=== PATIENT | male | born 1975 | race Two or more races ===

== ENCOUNTER → 2023-03-02 | Outpatient (CLI) | payer OTHER ==
[~2023-03-02] VITALS: Ht 175.3 cm; Wt 81.6 kg
[~2023-03-02] MED LIST: ADENOSINE 69 MG in GIVE UN-DILUTED 0 ML IV STA
== END | disposition home or self-care (01) ==
LOC: XYW 08:03
PROVIDERS: ATTEND Specialist
DX: I10 Essential (primary) hypertension (principal); R07.9 Chest pain, unspecified; E78.5 Hyperlipidemia, unspecified; K21.9 Gastro-esophageal reflux disease without esophagitis
CPT/HCPCS: 78452; 93017; A9500; J0153

== ENCOUNTER 2023-10-12 11:46 | Inpatient (IN) | payer OTHER ==
[~2023-10-12] VITALS: Ht 152.4 cm; Wt 92.2 kg
[2023-10-12 12:42] LABS: Basophils # (auto) 0 10 ^3/uL (0-0.2); Basophils % (auto) 0.8 % (0.0-2.0); Eosinophils # (auto) 0 10 ^3/uL (0-0.8); Eosinophils % (auto) 0.8 % (0.0-7.0); Hematocrit 49.8 % (41.0-53.0); Hemoglobin 17.5 g/dL (13.5-17.5); Lymphocytes # (auto) 0.9 10 ^3/uL (0.4-5.4); Lymphocytes % (auto) 16.4 % (10.0-50.0); Mean Corpuscular Hemoglobin 33.8 pg (28.0-32.0); Mean Corpuscular Hgb Conc. 35.2 g/dL (32.0-36.0); Monocytes # (auto) 0.6 10 ^3/uL (0-1.3); Monocytes % (auto) 9.9 % (0.0-12.0); Neutrophils # (auto) 4.1 10 ^3/uL (1.6-8.6); Neutrophils % (auto) 72.1 % (37.0-80.0); Nucleated Red Blood Cells % 0.2 %; Red Blood Cells 5.19 10^6/uL (4.5-5.90); Red Cell Distribution Width 14.2 % (11.8-14.3); White Blood Cell 5.7 10^3/uL (4.4-10.8)
[2023-10-12 12:53] LABS: Blood Alcohol < 3.0 mg/dL (<10); Magnesium 1.9 mg/dL (1.6-2.6)
[2023-10-12 12:54] LABS: Creatine Kinase IFCC 368 U/L (46-171)
[2023-10-12] MEDS: METOPROLOL TARTRATE 1MG/1ML-5ML VIAL IV ONE (13:01)
[2023-10-12 13:05] LABS: Lipase 45 U/L (12-53)
[2023-10-12 13:06] LABS: Alanine Aminotransferase 45 U/L (7-40); Albumin 5.1 g/dL (3.2-4.8); Alkaline Phosphatase 87 U/L (46-116); Anion Gap 8 (5-15); Aspartate Aminotransferase 23 U/L (13-40); BUN/Creatinine Ratio 17.6 (10.0-20.0); Bilirubin, Total 0.7 mg/dL (0.2-1.0); Blood Urea Nitrogen 24 mg/dL (9-23); Calcium 10.4 mg/dL (8.7-10.4); Carbon Dioxide 25 mmol/L (20-30); Chloride 106 mmol/L (98-107); Glucose 100 mg/dL (74-106); Potassium 3.7 mmol/L (3.5-5.1); Sodium 139 mmol/L (136-145)
[2023-10-12 13:07] LABS: Total Protein 7.7 g/dL (5.7-8.2)
[2023-10-12] MEDS ORDERED: hydrALAZINE HCL 20 MG/ML VL IV PRN (13:15)
[2023-10-12 14:00] VITALS: PULSE 122; RESP 16; O2SAT 95
[2023-10-12] MEDS ORDERED: NITROGLYCERIN 0.4 MG SL TAB SL PRN (14:15)
[2023-10-12] MEDS: SODIUM CHLORIDE 0.9% 1,000 ML IV SCH (14:15)
[2023-10-12] MEDS ORDERED: PRAV20TA3 PO (17:40)
[2023-10-12] MEDS ORDERED: CHOL20007 PO (17:40)
[2023-10-12] MEDS ORDERED: HYDR25TA5 PO (17:40)
[2023-10-12] MEDS ORDERED: HYDR25TA4 PO (17:40)
[2023-10-12] MEDS ORDERED: ALBUAER3 IN (17:40)
[2023-10-12] MEDS ORDERED: APIX5TAB PO (17:40)
[2023-10-12] MEDS ORDERED: MAGN400T40 PO (17:40)
[2023-10-12] MEDS ORDERED: TRIA0.1P2 TOP (17:40)
[2023-10-12] MEDS ORDERED: DIPH-751 PO (17:40)
[2023-10-12] MEDS ORDERED: AMLO1TAB22 PO (17:40)
[2023-10-12] MEDS ORDERED: METO-158 PO (17:40)
[2023-10-12] MEDS ORDERED: EVOL140I SC (17:40)
[2023-10-12] MEDS ORDERED: DICY20TA PO (17:40)
[2023-10-12] MEDS ORDERED: MELO15TA29 PO (17:40)
[2023-10-12] MEDS ORDERED: HYDR-4924 PO (17:40)
[2023-10-12 18:26] LABS: Urine Bacteria None Seen /hpf (None Seen); Urine WBC None Seen /hpf (0 - 3)
[2023-10-12 18:48] LABS: Urine Blood Negative /uL (Negative); Urine Clarity Clear (Clear); Urine Color Light-Yellow (Yellow); Urine Protein, UAD Negative (Negative); Urine Specific Gravity 1.017 (1.001-1.035); Urine Urobilinogen Normal (Negative); Urine pH 6.5 (5.0-9.0)
[2023-10-12 18:59] VITALS: PULSE 97
[2023-10-12 19:02] LABS: Amphetamine Screen, Urine Neg (NEGATIVE); Barbiturate Scree,Urine Neg (NEGATIVE); Benzodiazephine Screen, Urine Neg (NEGATIVE); Cocaine Screen, Urine Neg (NEGATIVE); Opiate Scree,Urine Neg (NEGATIVE)
[2023-10-12 19:03] LABS: Cannabinoid Screen, Urine Neg (NEGATIVE); Phencyclidine Screen, Urine Neg (NEGATIVE)
[2023-10-12 20:00] VITALS: PULSE 74; PULSE 94; RESP 18; O2SAT 97
[2023-10-12 21:00] VITALS: BP 137/77; PULSE 74; RESP 18; TEMP 98.1; O2SAT 97
[2023-10-12] MEDS: APIXABAN 5 MG TAB PO SCH (21:10)
[2023-10-12] MEDS: METOPROLOL TARTRATE 50 MG TAB PO SCH (21:11)
[2023-10-12] MEDS: FAMOTIDINE (10MG/ML) 2ML VL IV SCH (21:12)
[2023-10-12] MEDS: MELATONIN 5 MG TAB PO PRN (22:32)
[2023-10-13] VITALS (8 sets, daily range): BP systolic 106–140; BP diastolic 60–81; PULSE 56–76; RESP 18–20; TEMP 97.9–98.4; O2SAT 95–99
[2023-10-13 07:15] LABS: Basophils # (auto) 0 10 ^3/uL (0-0.2); Eosinophils # (auto) 0.1 10 ^3/uL (0-0.8); Monocytes # (auto) 0.5 10 ^3/uL (0-1.3); Neutrophils # (auto) 2.6 10 ^3/uL (1.6-8.6)
[2023-10-13 07:19] LABS: Basophils % (auto) 0.7 % (0.0-2.0); Eosinophils % (auto) 2.8 % (0.0-7.0); Hematocrit 45.6 % (41.0-53.0); Hemoglobin 15.9 g/dL (13.5-17.5); Lymphocytes % (auto) 24.2 % (10.0-50.0); Mean Corpuscular Hemoglobin 34.3 pg (28.0-32.0); Mean Corpuscular Hgb Conc. 34.9 g/dL (32.0-36.0); Mean Corpuscular Volume 98.2 fL (80.0-100.0); Neutrophils % (auto) 61.3 % (37.0-80.0); Red Blood Cells 4.64 10^6/uL (4.5-5.90); White Blood Cell 4.2 10^3/uL (4.4-10.8)
[2023-10-13 07:47] LABS: Alanine Aminotransferase 33 U/L (7-40); Albumin 4.3 g/dL (3.2-4.8); Alkaline Phosphatase 73 U/L (46-116); Anion Gap 7 (5-15); Aspartate Aminotransferase 21 U/L (13-40); BUN/Creatinine Ratio 10.6 (10.0-20.0); Blood Urea Nitrogen 13 mg/dL (9-23); Calcium 9.5 mg/dL (8.5-10.1); Carbon Dioxide 22 mmol/L (20-30); Chloride 108 mmol/L (98-107); Glucose 112 mg/dL (74-106); Sodium 137 mmol/L (136-145)
[2023-10-13 07:48] LABS: Bilirubin, Total 0.8 mg/dL (0.2-1.0); Total Protein 6.7 g/dL (5.7-8.2)
[2023-10-13] MEDS ORDERED: diphenhdrAMINE HCL 50 MG/1 ML VL IV PRN (13:00)
[2023-10-13] MEDS ORDERED: ALBUTEROL SULF HFA 90MCG INH 200DOSE IN SCH (14:00)
[2023-10-13] MEDS ORDERED: DICYCLOMINE HCL 10 MG CAP PO SCH (14:00)
[2023-10-13] MEDS: PANTOPRAZOLE 40 MG/10 ML VIAL INJ IV SCH (16:09)
[2023-10-13] MEDS: HYDROmorphone HCL 2 MG/ML VL/or syr IV PRN (16:10)
[2023-10-13] MEDS: APIXABAN 5 MG TAB PO SCH (20:15)
[2023-10-13] MEDS: PRAVASTATIN SODIUM 20 MG TAB PO SCH (20:16)
[2023-10-13] MEDS: AMIODARONE HCL 200 MG TAB PO SCH (21:48)
[2023-10-14] VITALS (9 sets, daily range): BP systolic 107–142; BP diastolic 26–86; PULSE 55–87; RESP 16–20; TEMP 97.8–99.1; O2SAT 96–99
[2023-10-14] MEDS: CHOLECALCIFEROL (VITD3) 1,000UNIT=25mCg TAB PO SCH (09:34)
[2023-10-14] MEDS: hydroCHLOROthiazide 25 MG TAB PO SCH (09:34)
[2023-10-14] MEDS: amLODIPine BESYLATE 5 MG TAB PO SCH (09:35)
[2023-10-14] MEDS: ONDANSETRON HCL 4 MG/2 ML VIAL IV PRN (09:42)
[2023-10-14] MEDS ORDERED: hydrOXYzine HCL 10 MG TAB PO SCH (10:00)
[2023-10-14] MEDS ORDERED: GASTROGRAFIN 120 ML SOL ONE (15:07)
[2023-10-14] MEDS: AMIODARONE HCL 200 MG TAB PO SCH (23:13)
[2023-10-15] VITALS (9 sets, daily range): BP systolic 115–153; BP diastolic 71–90; PULSE 58–75; RESP 14–20; TEMP 97.5–98.6; O2SAT 93–99
[2023-10-15 06:30] LABS: Basophils # (auto) 0 10 ^3/uL (0-0.2); Basophils % (auto) 0.2 % (0.0-2.0); Eosinophils # (auto) 0.1 10 ^3/uL (0-0.8); Lymphocytes # (auto) 1.5 10 ^3/uL (0.4-5.4); Monocytes # (auto) 0.6 10 ^3/uL (0-1.3); Neutrophils # (auto) 4.4 10 ^3/uL (1.6-8.6); Nucleated Red Blood Cells % 0.2 %; Red Blood Cells 4.74 10^6/uL (4.5-5.90); White Blood Cell 6.6 10^3/uL (4.4-10.8)
[2023-10-15 06:34] LABS: Hematocrit 46.6 % (41.0-53.0); Hemoglobin 16.4 g/dL (13.5-17.5); Lymphocytes % (auto) 22.8 % (10.0-50.0); Mean Corpuscular Hemoglobin 34.6 pg (28.0-32.0); Mean Corpuscular Hgb Conc. 35.1 g/dL (32.0-36.0); Mean Corpuscular Volume 98.4 fL (80.0-100.0); Monocytes % (auto) 9.1 % (0.0-12.0); Neutrophils % (auto) 65.9 % (37.0-80.0); Red Cell Distribution Width 13.9 % (11.8-14.3)
[2023-10-15 06:53] LABS: Alanine Aminotransferase 34 U/L (7-40); Albumin 4.7 g/dL (3.2-4.8); Alkaline Phosphatase 78 U/L (46-116); Anion Gap 5 (5-15); Aspartate Aminotransferase 17 U/L (13-40); BUN/Creatinine Ratio 10.3 (10.0-20.0); Blood Urea Nitrogen 12 mg/dL (9-23); Calcium 9.8 mg/dL (8.5-10.1); Carbon Dioxide 28 mmol/L (20-30); Chloride 108 mmol/L (98-107); Glucose 123 mg/dL (74-106); Magnesium 2.2 mg/dL (1.6-2.6); Potassium 3.8 mmol/L (3.5-5.1); Sodium 141 mmol/L (136-145)
[2023-10-15 06:54] LABS: Bilirubin, Total 0.8 mg/dL (0.2-1.0); Total Protein 7.1 g/dL (5.7-8.2)
[2023-10-15] MEDS: OXYCODONE W/ ACETAMINOPHEN 5/325MG TABLET PO PRN (11:59)
[2023-10-15] MEDS: PANTOPRAZOLE 40 MG TAB PO SCH (18:11)
[2023-10-15] MEDS: SUCRALFATE 1 GM TAB PO SCH (18:12)
[2023-10-16] VITALS (7 sets, daily range): BP systolic 100–147; BP diastolic 62–90; PULSE 56–75; RESP 16–19; TEMP 97.9–98.6; O2SAT 93–99
[2023-10-16] MEDS: DOCUSATE SOD 100 MG CAP PO PRN (09:16)
[2023-10-16] MEDS ORDERED: AMIO200T13 PO (15:25)
[2023-10-16] MEDS ORDERED: PANT40TA2 PO (15:27)
[2023-10-16] MEDS ORDERED: SUCR1TAB31 OR (15:27)
== END 2023-10-16 19:40 | disposition home or self-care (01) | DRG 389 ==
LOC: EDUNIT# 11:46 → ER 11:46 → EDBD 11:46 → TELE 14:13 → TELE-WESTW 18:14
PROVIDERS: ADMIT Nurse Practitioner Family; ATTEND Internal Medicine
DX: K56.600 Partial intestinal obstruction, unspecified as to cause (principal); I47.10 Supraventricular tachycardia, unspecified; I48.20 Chronic atrial fibrillation, unspecified; M62.82 Rhabdomyolysis; K21.00 Gastro-esophageal reflux disease with esophagitis, without bleeding; I10 Essential (primary) hypertension; E66.01 Morbid (severe) obesity due to excess calories; E78.5 Hyperlipidemia, unspecified; F32.A Depression, unspecified; N40.0 Benign prostatic hyperplasia without lower urinary tract symptoms; I34.1 Nonrheumatic mitral (valve) prolapse; J45.909 Unspecified asthma, uncomplicated; R07.89 Other chest pain; Z88.5 Allergy status to narcotic agent; Z88.0 Allergy status to penicillin; Z88.8 Allergy status to other drugs, medicaments and biological substances; Z91.018 Allergy to other foods; Z88.6 Allergy status to analgesic agent; Z79.01 Long term (current) use of anticoagulants; Z83.3 Family history of diabetes mellitus; Z68.39 Body mass index [BMI] 39.0-39.9, adult; Z87.891 Personal history of nicotine dependence
CPT/HCPCS: 36415; 71045; 74018; 74176; 74250; 80053; 80307; 80320; 81001; 82550; 83605; 83690; 83735; 83880; 84443; 84484; 85025; 93005; 93306; G0378; J2405; J2470; J3490

== ENCOUNTER 2023-11-12 11:31 | Emergency (ER) | payer OTHER ==
[~2023-11-12] VITALS: Ht 175.3 cm; Wt 82.0 kg
[~2023-11-12 11:31] MED LIST changes: -ADENOSINE 69 MG in GIVE UN-DILUTED 0 ML IV STA; +ALBUAER3 IN; +AMIO200T13 PO; +AMLO1TAB22 PO; +APIX5TAB PO; +CHOL20007 PO; +DICY20TA PO; +DIPH-751 PO; +EVOL140I SC; +HYDR25TA5 PO; +MAGN400T40 PO; +MELO15TA29 PO; +METO-158 PO; +PANT40TA2 PO; +PRAV20TA3 PO; +SUCR1TAB31 OR; +TRIA0.1P2 TOP
[2023-11-12 12:15] LABS: Basophils # (auto) 0 10 ^3/uL (0-0.2); Basophils % (auto) 0.6 % (0.0-2.0); Eosinophils # (auto) 0.1 10 ^3/uL (0-0.8); Hematocrit 45.1 % (41.0-53.0); Hemoglobin 15.8 g/dL (13.5-17.5); Lymphocytes % (auto) 19.2 % (10.0-50.0); Mean Corpuscular Hemoglobin 34.1 pg (28.0-32.0); Mean Corpuscular Hgb Conc. 35.1 g/dL (32.0-36.0); Mean Corpuscular Volume 97.2 fL (80.0-100.0); Monocytes # (auto) 0.5 10 ^3/uL (0-1.3); Monocytes % (auto) 9.4 % (0.0-12.0); Neutrophils # (auto) 3.8 10 ^3/uL (1.6-8.6); Neutrophils % (auto) 69.8 % (37.0-80.0); Nucleated Red Blood Cells % 0.1 %; Red Blood Cells 4.63 10^6/uL (4.5-5.90); Red Cell Distribution Width 14.3 % (11.8-14.3); White Blood Cell 5.4 10^3/uL (4.4-10.8)
[2023-11-12 12:26] LABS: Alanine Aminotransferase 38 U/L (7-40); Alkaline Phosphatase 79 U/L (46-116); Anion Gap 7 (5-15); Aspartate Aminotransferase 21 U/L (13-40); BUN/Creatinine Ratio 11.8 (10.0-20.0); Bilirubin, Total 0.6 mg/dL (0.2-1.0); Blood Urea Nitrogen 15 mg/dL (9-23); Calcium 10.2 mg/dL (8.7-10.4); Carbon Dioxide 30 mmol/L (20-30); Chloride 105 mmol/L (98-107); Glucose 115 mg/dL (74-106); Potassium 3.5 mmol/L (3.5-5.1); Sodium 142 mmol/L (136-145); Total Protein 7.5 g/dL (5.7-8.2)
[2023-11-12 12:32] VITALS: PULSE 82; RESP 19; O2SAT 98
[2023-11-12 12:33] LABS: INR 0.96 (0.9-1.15); Partial Thromboplastin Time 24.5 SEC (24.5-34.5); Prothrombin Time 10.2 sec (9.3-11.8)
[2023-11-12] MEDS: HYDROmorphone HCL 2 MG/ML VL/or syr IV ONE (12:44)
[2023-11-12 14:15] LABS: Urine Bacteria None Seen /hpf (None Seen)
[2023-11-12 14:32] LABS: Urine Blood Negative /uL (Negative); Urine Clarity Clear (Clear); Urine Color Light-Yellow (Yellow); Urine Mucus FEW (None Seen); Urine Protein, UAD Negative (Negative); Urine Specific Gravity 1.021 (1.001-1.035); Urine Urobilinogen Normal (Negative); Urine WBC <1 /hpf (0 - 3)
[2023-11-12] MEDS ORDERED: SENN1TAB49 PO (15:41)
[2023-11-12] MEDS ORDERED: POLY335015 PO (15:41)
[2023-11-12 16:01] VITALS: BP 148/89; PULSE 100; RESP 18; TEMP 98.3; O2SAT 95
== END 2023-11-12 16:07 | disposition home or self-care (01) ==
LOC: ER 11:34
DX: R07.89 Other chest pain (principal); K59.00 Constipation, unspecified; E86.0 Dehydration; I10 Essential (primary) hypertension; J45.909 Unspecified asthma, uncomplicated; Z79.899 Other long term (current) drug therapy; Z88.0 Allergy status to penicillin; Z88.1 Allergy status to other antibiotic agents; Z88.8 Allergy status to other drugs, medicaments and biological substances
CPT/HCPCS: 36415; 71045; 74018; 74176; 80053; 81001; 84484; 85025; 85610; 85730; 93005; 96374; 99285; J1170

== ENCOUNTER 2023-11-13 12:40 | Inpatient (IN) | payer OTHER ==
[~2023-11-13] VITALS: Ht 175.3 cm; Wt 83.1 kg
[~2023-11-13 12:40] MED LIST changes: +POLY335015 PO; +SENN1TAB49 PO
[2023-11-13 14:03] LABS: Mean Corpuscular Hemoglobin 34.6 pg (28.0-32.0); Mean Corpuscular Hgb Conc. 36.1 g/dL (32.0-36.0); Mean Corpuscular Volume 95.8 fL (80.0-100.0); White Blood Cell 7.2 10^3/uL (4.4-10.8)
[2023-11-13 14:05] LABS: Hematocrit 41.4 % (41.0-53.0); Platelet Count (auto) 255 10^3/uL (140-450); Red Blood Cells 4.32 10^6/uL (4.5-5.90); Red Cell Distribution Width 14.3 % (11.8-14.3)
[2023-11-13 14:08] LABS: Basophils % (manual) 0 (0.0-2.0); Blast Cells 0; Eosinophils % (manual) 0 (0-7); Metamyelocytes % 0; Myelocytes % 0; Promyelocytes % 0; Reactive Lymphocytes 0
[2023-11-13 14:15] LABS: Chloride 101 mmol/L (98-107); Potassium 3.4 mmol/L (3.5-5.1); Sodium 136 mmol/L (136-145)
[2023-11-13 14:16] LABS: Anion Gap 8 (5-15); Carbon Dioxide 27 mmol/L (20-30)
[2023-11-13 14:17] LABS: Calcium 10.1 mg/dL (8.7-10.4)
[2023-11-13 14:21] LABS: Glucose 180 mg/dL (74-106)
[2023-11-13 14:22] LABS: BUN/Creatinine Ratio 15.3 (10.0-20.0); Blood Urea Nitrogen 18 mg/dL (9-23)
[2023-11-13 14:27] LABS: Band Neutrophils % (manual) 1; Lymphocytes % (manual) 8 (10.0-50.0); Monocytes % (manual) 2 (0-12)
[2023-11-13 14:28] LABS: Platelet Estimate Adequate; RBC Morphology Normal
[2023-11-13 15:26] VITALS: PULSE 90; RESP 18; O2SAT 99
[2023-11-13] MEDS: POTASSIUM EFFERVESENT TAB 25 MEQ PO ONE (15:28)
[2023-11-13] MEDS: cloNIDine HCL 0.1 MG TAB PO ONE (15:29)
[2023-11-13] MEDS: SODIUM CHLORIDE 0.9% 1,000 ML IV ONE (15:40)
[2023-11-13 15:50] VITALS: PULSE 94; RESP 16; O2SAT 99
[2023-11-13] MEDS ORDERED: ACETAMINOPHEN 325 MG TAB PO PRN (16:30)
[2023-11-13] MEDS ORDERED: ONDANSETRON HCL 4 MG/2 ML VIAL IV PRN (16:30)
[2023-11-13] MEDS: PANTOPRAZOLE 40 MG/10 ML VIAL INJ IV ONE (16:43)
[2023-11-13] MEDS: SODIUM CHLORIDE 0.9% 1,000 ML IV SCH (16:44)
[2023-11-13] MEDS: KETOROLAC TROMETH 30 MG/ML 1ML VIAL IV ONE (16:44)
[2023-11-13 18:38] VITALS: BP 136/75; PULSE 96; RESP 20; TEMP 98.3; O2SAT 98
[2023-11-13 20:00] VITALS: PULSE 99; RESP 18; O2SAT 97
[2023-11-13 21:00] VITALS: BP 129/71; PULSE 99; RESP 18; TEMP 99.8; O2SAT 97
[2023-11-13] MEDS: SUCRALFATE 1 GM TAB PO SCH (21:35)
[2023-11-13] MEDS: APIXABAN 5 MG TAB PO SCH (21:35)
[2023-11-13] MEDS: DICYCLOMINE HCL 10 MG CAP PO SCH (21:35)
[2023-11-13] MEDS: AMIODARONE HCL 200 MG TAB PO SCH (21:35)
[2023-11-13] MEDS: PANTOPRAZOLE 40 MG TAB PO SCH (21:35)
[2023-11-13] MEDS: diphenhdrAMINE HCL 25 MG CAP PO SCH (21:36)
[2023-11-13] MEDS: METOPROLOL TARTRATE 50 MG TAB PO SCH (21:36)
[2023-11-13] MEDS: KETOROLAC TROMETH 30 MG/ML 1ML VIAL IV PRN (21:46)
[2023-11-14] VITALS (7 sets, daily range): BP systolic 119–142; BP diastolic 74–84; PULSE 62–78; RESP 17–20; TEMP 98.1–99; O2SAT 96–99
[2023-11-14 06:11] LABS: Basophils # (auto) 0 10 ^3/uL (0-0.2); Basophils % (auto) 0.1 % (0.0-2.0); Eosinophils # (auto) 0 10 ^3/uL (0-0.8); Hemoglobin 14.5 g/dL (13.5-17.5); Lymphocytes # (auto) 0.9 10 ^3/uL (0.4-5.4); Mean Corpuscular Volume 99.7 fL (80.0-100.0); Neutrophils # (auto) 9.2 10 ^3/uL (1.6-8.6); Nucleated Red Blood Cells % 0.1 %; White Blood Cell 10.9 10^3/uL (4.4-10.8)
[2023-11-14 06:13] LABS: Hematocrit 42.1 % (41.0-53.0); Lymphocytes % (auto) 8.6 % (10.0-50.0); Mean Corpuscular Hemoglobin 34.5 pg (28.0-32.0); Mean Corpuscular Hgb Conc. 34.6 g/dL (32.0-36.0); Monocytes # (auto) 0.7 10 ^3/uL (0-1.3); Monocytes % (auto) 6.8 % (0.0-12.0); Neutrophils % (auto) 84.5 % (37.0-80.0); Platelet Count (auto) 211 10^3/uL (140-450); Red Blood Cells 4.22 10^6/uL (4.5-5.90); Red Cell Distribution Width 14.9 % (11.8-14.3)
[2023-11-14 06:32] LABS: Alanine Aminotransferase 32 U/L (7-40); Albumin 4.4 g/dL (3.2-4.8); Alkaline Phosphatase 64 U/L (46-116); Anion Gap 4 (5-15); Aspartate Aminotransferase 21 U/L (13-40); BUN/Creatinine Ratio 17.3 (10.0-20.0); Blood Urea Nitrogen 18 mg/dL (9-23); Calcium 9.5 mg/dL (8.7-10.4); Carbon Dioxide 30 mmol/L (20-30); Chloride 107 mmol/L (98-107); Glucose 111 mg/dL (74-106); Potassium 4.2 mmol/L (3.5-5.1); Sodium 141 mmol/L (136-145)
[2023-11-14 06:33] LABS: Bilirubin, Total 0.8 mg/dL (0.2-1.0); Total Protein 6.5 g/dL (5.7-8.2)
[2023-11-14] MEDS: MELOXICAM PO SCH (08:33)
[2023-11-14] MEDS ORDERED: PANTOPRAZOLE 40 MG/10 ML VIAL INJ IV SCH (10:00)
[2023-11-14] MEDS ORDERED: ENOXAPARIN SOD 40 MG/0.4 ML SYRINGE SC SCH (10:00)
[2023-11-14] MEDS: hydroCHLOROthiazide 25 MG TAB PO SCH (10:27)
[2023-11-14] MEDS: MAGNESIUM OXIDE 400 MG TAB PO SCH (10:27)
[2023-11-14] MEDS: amLODIPine BESYLATE 5 MG TAB PO SCH (10:28)
[2023-11-14] MEDS: PRAVASTATIN SODIUM 20 MG TAB PO SCH (10:28)
[2023-11-14] MEDS: CHOLECALCIFEROL (VITD3) 1,000UNIT=25mCg TAB PO SCH (10:28)
[2023-11-14] MEDS ORDERED: AMLO1TAB23 PO (11:04)
[2023-11-14] MEDS ORDERED: DICY10CA PO (11:04)
[2023-11-14] MEDS ORDERED: MAGN400T6 PO (11:04)
[2023-11-14] MEDS ORDERED: PANT40T PO (11:04)
[2023-11-14] MEDS ORDERED: SUCR1TAB PO (11:04)
[2023-11-14 11:48] LABS: Urine Bacteria None Seen /hpf (None Seen); Urine WBC None Seen /hpf (0 - 3)
[2023-11-14 11:59] LABS: Urine Blood Negative /uL (Negative); Urine Clarity Clear (Clear); Urine Protein, UAD Negative (Negative); Urine Specific Gravity 1.003 (1.001-1.035); Urine Urobilinogen Normal (Negative)
[2023-11-14 12:05] LABS: Urine Color Light-Yellow (Yellow)
[2023-11-14 12:26] LABS: Amphetamine Screen, Urine Neg (NEGATIVE); Barbiturate Scree,Urine Neg (NEGATIVE); Benzodiazephine Screen, Urine Neg (NEGATIVE); Cocaine Screen, Urine Neg (NEGATIVE); Opiate Scree,Urine Neg (NEGATIVE); Phencyclidine Screen, Urine Neg (NEGATIVE)
[2023-11-14 12:27] LABS: Cannabinoid Screen, Urine Neg (NEGATIVE)
[2023-11-15] VITALS (7 sets, daily range): BP systolic 108–147; BP diastolic 68–88; PULSE 51–74; RESP 16–17; TEMP 98–98.7; O2SAT 96–98
[2023-11-15] MEDS: MAALOX PLUS or MAALOX 30 ML PO PRN (06:12)
[2023-11-15] MEDS ORDERED: SUCR1TAB PO (15:15)
[2023-11-15] MEDS ORDERED: PANT40T PO (15:15)
== END 2023-11-15 17:33 | disposition home or self-care (01) | DRG 392 ==
LOC: ER 12:40 → OVERFLOW 16:32 → CENTRAL 18:39
PROVIDERS: ADMIT Nurse Practitioner Family; ATTEND Nurse Practitioner
DX: A08.4 Viral intestinal infection, unspecified (principal); J45.909 Unspecified asthma, uncomplicated; I48.91 Unspecified atrial fibrillation; E87.6 Hypokalemia; I10 Essential (primary) hypertension; K21.9 Gastro-esophageal reflux disease without esophagitis; N40.0 Benign prostatic hyperplasia without lower urinary tract symptoms; G89.29 Other chronic pain; R73.9 Hyperglycemia, unspecified; Z88.0 Allergy status to penicillin; Z88.6 Allergy status to analgesic agent; Z83.3 Family history of diabetes mellitus; Z79.01 Long term (current) use of anticoagulants
CPT/HCPCS: 36415; 80048; 80053; 80307; 81001; 82270; 83690; 85007; 85025; 85027; 85048; 87045; 87081; 87177; 87427; 87493; 96374; 96375; G0378; J1885; J2405; J2470

== ENCOUNTER 2024-02-11 11:31 | Emergency (ER) | payer OTHER ==
[~2024-02-11] VITALS: Ht 175.3 cm; Wt 84.9 kg
[~2024-02-11 11:31] MED LIST changes: +AMLO1TAB23 PO; +DICY10CA PO; -MAGN400T40 PO; +MAGN400T6 PO; +PANT40T PO; +SUCR1TAB PO; -SUCR1TAB31 OR
[2024-02-11 12:30] VITALS: BP 138/93; PULSE 87; RESP 16; TEMP 99.6; O2SAT 98
--- NOTE | 2024-02-11 12:44 | ED.PDOC ---
SOB-HPI HPI Comments A 48 YEAR OLD MALE PRESENTS TO THE ED WITH COMPLAINT OF COUGH. PATIENT STATES HE HAS BEEN EXPERIENCING A COUGH, CONGESTION, AND MILD CHEST SORENESS DUE TO COUGHING TOO MUCH THAT STARTED YESTERDAY NIGHT. PATIENT DENIES FEVER, CHILLS, SHORTNESS OF BREATH, CHEST PAIN, ABDOMINAL PAIN, NAUSEA, VOMITING, HEADACHE, OR OTHER COMPLAINTS. NO OTHER SYMPTOMS OR MODIFYING FACTORS AT THIS TIME. PATIENT IS ALERT, ORIENTED X 4, AND HAS STEADY GAIT. Chief Complaint: Cough Time Seen by MD: 11:43 Primary Care Provider: NONE Reviewed notes: Nurses Notes, Medications, Allergies Information Source: Patient Mode of Arrival: Ambulatory Severity: Moderate Timing: Days Duration: Since onset, Days Context: Spontaneous Onset PE Risk Factors: None History of: Asthma Prehospital treatment: None Modifying Factors: Nothing Associated Signs and Symptoms: Cough, Nasal Congestion If cough with SOB: Productive Past Medical History PAST MEDICAL HISTORY: AFIB, Asthma, HTN Surgical History: Denies all surgeries Family History Family History: Reviewed,noncontributory to illness, No family hx of Cancer, No family hx of DM, No family hx of Heart tim, No family hx of HTN, No family hx ofKidney tim, No family hx of Liver tim, No family hx of Lung tim, No family hx of Stroke Social History Smoker: Non-Smoker Alcohol: Denies ETOH Use Drugs: Denies Drug Use Lives In: Home Constitutional: denies: chills, diaphoresis, fatigue, fever, malaise, sweats, weakness, others EENTM: reports: nose congestion; denies: blurred vision, double vision, ear bleeding, ear discharge, ear drainage, ear pain, ear ringing, eye pain, eye redness, hearing loss, mouth pain, mouth swelling, nasal discharge, nose bleeding, nose pain, photophobia, tearing, throat pain, throat swelling, voice changes, others Respiratory: reports: cough; denies: hemoptysis, orthopnea, SOB at rest, shortness of breath, SOB with excertion, stridor, wheezing, others Cardiovascular: denies: chest pain, dizzy spells, diaphoresis, Dyspnea on exert ion, edema, irregular heart beat, left arm pain, lightheadedness, palpitations, PND, syncope, others Gastrointestinal: denies: abdomen distended, abdominal pain, blood streaked bowels, constipated, diarrhea, dysphagia, difficulty swallowing, hematemesis, melena, nausea, poor appetite, poor fluid intake, rectal bleeding, rectal pain, vomiting, others Genitourinary: denies: burning, dysuria, flank pain, frequency, hematuria, incontinence, penile discharge, penile sore, pain, testicle pain, testicle swelling, urgency, others Neurological: denies: dizziness, fainting, headache, left sided numbness, left sided weakness, numbness, paresthesia, pre-existing deficit, right sided numbness, right sided weakness, seizure, speech problems, tingling, tremors, weakness, others Musculoskeletal: denies: back pain, gout, joint pain, joint swelling, muscle pain, muscle stiffness, neck pain, others Integumetry: denies: bruises, change in color, change in hair/nails, dryness, laceration, lesions, lumps, rash, wounds, others Allergic/Immunocompromised: denies: Difficulty Healing, Frequent Infections, Hives, Itching, others Hematologic/Lymphatic: denies: anemia, blood clots, easy bleeding, easy bruising, swollen glands, others Endocrine: denies: excessive hunger, excessive sweating, excessive thirst, excessive urination, flushing, intolerance to cold, intolerance to heat, unexplained weight gain, unexplained weight loss, others Psychiatric: denies: anxiety, bipolar disorder, depression, hopeless, panic disorder, schizophrenia, sleepless, suicidal, others All Other Systems: Reviewed and Negative Physical Exam General Appearance: No Apparent Distress, Normal HEENT: Normal ENT Inspection, PERRL/EOMI, Pharynx Normal, TMs Normal Neck: Full Range of Motion, Non-Tender, Normal, Normal Inspection Respiratory: Chest Non-Tender, Inspiration, No Accessory Muscle Use, No Respiratory Distress, Rhonchi Cardiovascular: No Edema, No JVD, No Murmur, No Gallop, Normal Peripheral Pulses, Regular Rate/Rhythm Breast Exam: Deferred Gastrointestinal: No Organomegaly, Non Tender, No Pulsatile Mass, Normal Bowel Sounds, Soft Genitalia: Deferred Pelvic: Deferred Rectal: Deferred Extremities: No calf tenderness, Normal capillary refill, Normal inspection, Normal range of motion, Non-tender, No pedal edema Musculoskeletal : Apperance: Normal Neurologic: Alert, 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 Was a procedure done?: No Differential Dx Differential Diagnosis: Bronchitis, Pneumonia, Sinusitis, Allergic Rhinitis, Otitis Media, Pharyngitis, URI X-Ray, Labs, Meds, VS Vital Signs Date Time Temp Pulse Resp B/P (MAP) Pulse Ox O2 Delivery O2 Flow Rate FiO2 02/11/24 12:30 87 16 98 Room Air 02/11/24 12:30 99.6 87 16 138/93 (108) 98 99.6 02/11/24 12:00 99.6 87 16 138/93 (108) 98 02/11/24 12:00 16 98 Room Air* 0 21 X-Ray, Labs, Meds, VS Comment XR CHEST: [INTERPRETED BY ME. NO ACUTE FINDINGS. NO PNEUMONIA. NO CONSOLIDATIONS. NO INFILTRATES. PENDING RADIOLOGIST REPORT. ] Images Reviewed?: Images reviewed and evaluated by me Time of 1ST Reevaluation: 13:00 Reevaluation 1ST: Improved Patient Education/Counseling: Diagnosis, Treatment, Need For Follow Up Family Education/Counseling: Diagnosis, Treatment, Need For Follow Up Medical Screening: No EMC Exist At This Time Departure 1 Departure Time of Disposition: 13:00 Impression: Primary Impression: Acute bronchitis Qualified Codes: J20.9 - Acute bronchitis, unspecified Disposition: 01 HOME / SELF CARE / HOMELESS Condition: Stable Additional Instructions: FOLLOW-UP WITH PCP IN 1 TO 2 DAYS. TAKE MEDICATIONS PRESCRIBED. RETURN TO ED FOR ANY NEW OR WORSENING SYMPTOMS. e-Prescriptions Promethazine-Dm (Promethazine Dm 6.25-15 mg/5Ml) 1 Ethel Ethel 5 ML PO TID, #150 ML Prov: CHRISSIE SUH 02/11/24 Azithromycin (Azithromycin) 500 Mg Tab 1 TAB PO DAILY, #5 TAB Prov: CHRISSIE SUH 02/11/24 Discharged With: Self Critical Care Note Critical Care Time?: No Stability Stability form required: No Heart Score Heart Score: Heart Score Response (Comments) Value History N/A 0 EKG N/A 0 Age N/A 0 Risk Factors N/A 0 Troponin N/A 0 Total 0 I personally scribed for CHRISSIE SUH ([email or web address]) on 02/11/24 at 12:44. Electronically submitted by Pepe Cunningham ([email or web address]). I personally scribed for CHRISSIE SUH ([email or web address]) on 02/11/24 at 12:50. Electronically submitted by Pepe Cunningham ([email or web address]). CHRISSIE SUH Feb 11, 2024 12:44
[2024-02-11] MEDS ORDERED: PROM1SOL4 PO (12:51)
[2024-02-11] MEDS ORDERED: AZIT500T66 PO (12:51)
--- NOTE | 2024-02-11 13:05 | DVH ---
CHEST RADIOGRAPH Indication:COUGH Technique: Single frontal view of the chest was obtained Comparison: XY CHEST PORTABLE on DOS: 11/12/23, XY CHEST PORTABLE on DOS: 10/12/23 FINDINGS: Lines and Tubes: None Lungs: No focal consolidation. Mild elevation of the right hemidiaphragm. Pleura: No effusion. No pneumothorax. Cardiomediastinal contours: Unremarkable Bones: No acute osseous abnormality. IMPRESSION: No acute cardiopulmonary disease.
== END 2024-02-11 12:59 | disposition home or self-care (01) ==
LOC: ER 11:31
DX: J20.9 Acute bronchitis, unspecified (principal); I10 Essential (primary) hypertension; J45.909 Unspecified asthma, uncomplicated
CPT/HCPCS: 71045

== ENCOUNTER 2024-02-16 10:23 | Inpatient (IN) | payer OTHER ==
[~2024-02-16] VITALS: Ht 175.3 cm; Wt 89.7 kg
[~2024-02-16 10:23] MED LIST changes: +AZIT500T66 PO; +PROM1SOL4 PO
[2024-02-16 10:56] LABS: Basophils # (auto) 0 10 ^3/uL (0-0.2); Basophils % (auto) 0.1 % (0.0-2.0); Eosinophils # (auto) 0.1 10 ^3/uL (0-0.8); Hematocrit 49.9 % (41.0-53.0); Hemoglobin 17.7 g/dL (13.5-17.5); Lymphocytes % (auto) 17.6 % (10.0-50.0); Mean Corpuscular Hemoglobin 34.2 pg (28.0-32.0); Mean Corpuscular Hgb Conc. 35.4 g/dL (32.0-36.0); Mean Corpuscular Volume 96.5 fL (80.0-100.0); Monocytes # (auto) 0.5 10 ^3/uL (0-1.3); Monocytes % (auto) 9.9 % (0.0-12.0); Neutrophils # (auto) 3.9 10 ^3/uL (1.6-8.6); Neutrophils % (auto) 70.4 % (37.0-80.0); Nucleated Red Blood Cells % 0.1 %; Platelet Count (auto) 286 10^3/uL (140-450); Red Blood Cells 5.17 10^6/uL (4.5-5.90); Red Cell Distribution Width 13.8 % (11.8-14.3); White Blood Cell 5.5 10^3/uL (4.4-10.8)
--- NOTE | 2024-02-16 10:58 | ED.PDOC ---
SOB-HPI HPI Comments 48 year old male presents to the ED with chief complaint of chest pain. Patient reports that he has been experiencing sharp chest pain across his chest for the past few days along with associated coughing and worsening pain with cough. Patient relays that he was diagnosed with bronchitis from [facility] last week and was given antibiotics, however, he has had diarrhea since starting them. Patient denies any N/V, fever, chills, dizziness, or headache. Chief Complaint: Chest Pain Time Seen by MD: 10:54 Primary Care Provider: NONE Reviewed notes: Nurses Notes, Medications, Allergies Information Source: Patient Mode of Arrival: Ambulatory Severity: Moderate Timing: Days Duration: Since onset Context: At Rest PE Risk Factors: None History of: None Prehospital treatment: None Modifying Factors: Nothing Associated Signs and Symptoms: Cough, Chest Pain Quality: Sharp Radiation: No Radiation Location: Substernal If cough with SOB: Non-Productive Past Medical History PAST MEDICAL HISTORY: AFIB, Asthma, HTN Surgical History: Denies all surgeries Family History Family History: Reviewed,noncontributory to illness, No family hx of Cancer, No family hx of DM, No family hx of Heart tim, No family hx of HTN, No family hx ofKidney tim, No family hx of Liver tim, No family hx of Lung tim, No family hx of Stroke Social History Smoker: Non-Smoker Alcohol: Denies ETOH Use Drugs: Denies Drug Use Lives In: Home Constitutional: denies: chills, diaphoresis, fatigue, fever, malaise, sweats, weakness, others EENTM: denies: blurred vision, double vision, ear bleeding, ear discharge, ear drainage, ear pain, ear ringing, eye pain, eye redness, hearing loss, mouth pain, mouth swelling, nasal discharge, nose bleeding, nose congestion, nose pain, photophobia, tearing, throat pain, throat swelling, voice changes, others Respiratory: reports: cough; denies: hemoptysis, orthopnea, SOB at rest, shortness of breath, SOB with excertion, stridor, wheezing, others Cardiovascular: reports: chest pain; denies: dizzy spells, diaphoresis, Dyspnea on exertion, edema, irregular heart beat, left arm pain, lightheadedness, palpitations, PND, syncope, others Gastrointestinal: reports: diarrhea; denies: abdomen distended, abdominal pain, blood streaked bowels, constipated, dysphagia, difficulty swallowing, hematemesis, melena, nausea, poor appetite, poor fluid intake, rectal bleeding, rectal pain, vomiting, others Genitourinary: denies: burning, dysuria, flank pain, frequency, hematuria, incontinence, penile discharge, penile sore, pain, testicle pain, testicle swelling, urgency, others Neurological: denies: dizziness, fainting, headache, left sided numbness, left sided weakness, numbness, paresthesia, pre-existing deficit, right sided numbness, right sided weakness, seizure, speech problems, tingling, tremors, weakness, others Musculoskeletal: denies: back pain, gout, joint pain, joint swelling, muscle pain, muscle stiffness, neck pain, others Integumetry: denies: bruises, change in color, change in hair/nails, dryness, laceration, lesions, lumps, rash, wounds, others Allergic/Immunocompromised: denies: Difficulty Healing, Frequent Infections, Hives, Itching, others Hematologic/Lymphatic: denies: anemia, blood clots, easy bleeding, easy bruising, swollen glands, others Endocrine: denies: excessive hunger, excessive sweating, excessive thirst, excessive urination, flushing, intolerance to cold, intolerance to heat, unexplained weight gain, unexplained weight loss, others Psychiatric: denies: anxiety, bipolar disorder, depression, hopeless, panic disorder, schizophrenia, sleepless, suicidal, others All Other Systems: Reviewed and Negative Physical Exam General Appearance: Moderate Distress, Normal HEENT: Normal ENT Inspection, PERRL/EOMI Neck: Full Range of Motion, Non-Tender, Normal, Normal Inspection Respiratory: Chest Non-Tender, Lungs Clear, No Accessory Muscle Use, No Respiratory Distress, Normal Breath Sounds Cardiovascular: No Edema, No JVD, No Murmur, No Gallop, Normal Peripheral Pulses, Regular Rate/Rhythm Breast Exam: Deferred Gastrointestinal: No Organomegaly, Non Tender, No Pulsatile Mass, Normal Bowel Sounds, Soft Genitalia: Deferred Pelvic: Deferred Rectal: Deferred Extremities: No calf tenderness, Normal capillary refill, Normal inspection, Normal range of motion, Non-tender, No pedal edema Musculoskeletal : Apperance: Normal 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 Was a procedure done?: No Differential Dx Differential Diagnosis: Anxiety, Asthma, Bronchitis, CHF, COPD X-Ray, Labs, Meds, VS Vital Signs Date Time Temp Pulse Resp B/P (MAP) Pulse Ox O2 Delivery O2 Flow Rate FiO2 02/16/24 11:16 71 02/16/24 10:52 98.5 78 16 143/67 (92) 97 02/16/24 10:28 75 Lab Test 02/16/24 11:24 02/16/24 10:36 02/16/24 10:34 Range/Units Troponin I High Sensitivity < 3 L < 3 L </=54 ng/L White Blood Count 5.5 4.4-10.8 10^3/uL Red Blood Count 5.17 4.5-5.90 10^6/uL Hemoglobin 17.7 H 13.5-17.5 g/dL Hematocrit 49.9 41.0-53.0 % Mean Corpuscular Volume 96.5 80.0-100.0 fL Mean Corpuscular Hemoglobin 34.2 H 28.0-32.0 pg Mean Corpuscular Hemoglobin Concent 35.4 32.0-36.0 g/dL Red Cell Distribution Width 13.8 11.8-14.3 % Platelet Count 286 140-450 10^3/uL Mean Platelet Volume 7.2 6.9-10.8 fL Neutrophils (%) (Auto) 70.4 37.0-80.0 % Lymphocytes (%) (Auto) 17.6 10.0-50.0 % Monocytes (%) (Auto) 9.9 0.0-12.0 % Eosinophils (%) (Auto) 2.0 0.0-7.0 % Basophils (%) (Auto) 0.1 0.0-2.0 % Neutrophils # (Auto) 3.9 1.6-8.6 10 ^3/uL Lymphocytes # (Auto) 1.0 0.4-5.4 10 ^3/uL Monocytes # (Auto) 0.5 0-1.3 10 ^3/uL Eosinophils # (Auto) 0.1 0-0.8 10 ^3/uL Basophils # (Auto) 0 0-0.2 10 ^3/uL Nucleated Red Blood Cells 0.1 % Urine Color Light-yellow Yellow Urine Clarity Clear Clear Urine pH 5.5 5.0-9.0 Urine Specific [place] 1.015 1.001-1.035 Urine Protein Negative Negative Urine Ketones Negative Negative Urine Blood Negative Negative /uL Urine Nitrite Negative Negative Urine Bilirubin Negative Negative Urine Urobilinogen Normal Negative mg/dL Urine Leukocyte Esterase Negative Negative /uL Urine RBC 1 0 - 3 /hpf Urine WBC None seen 0 - 3 /hpf Urine Squamous Epithelial Cells None seen <5 /hpf Urine Bacteria None seen None Seen /hpf Urine Mucus Few None Seen Urine Glucose Normal Normal mg/dL Chest XR: FINDINGS: Lines and Tubes: None Lungs: No focal consolidation. Pleura: No effusion. No pneumothorax. Cardiomediastinal contours: Unremarkable Bones: No acute osseous abnormality. IMPRESSION: No acute cardiopulmonary disease. Patient alert. Complaining of chest pain. Chest x-ray reviewed does not show any acute changes. Vitals stable. EKG reviewed does not show any acute changes. Cardiac marker within normal limits. Continues to have chest pain. Was given aspirin. Was given nitro. Reviewed his previous visit. Explained to the patient. Continue cardiac monitoring. Images Reviewed?: Images reviewed and evaluated by me Time of 1ST Reevaluation: 11:54 Reevaluation 1ST: Unchanged Patient Education/Counseling: Diagnosis, Treatment Family Education/Counseling: No Family Present Departure 1 Departure Time of Disposition: 13:23 Impression: Primary Impression: Chest pain of unknown etiology Additional Impression: HTN (hypertension) Qualified Codes: I10 - Essential (primary) hypertension Disposition: ADMITTED INPATIENT Admit to: Med Surg Condition: Guarded Critical Care Note Critical Care Time?: Yes (45 min-critical care time only) Stability Stability form required: No Heart Score Heart Score: Heart Score Response (Comments) Value History Moderate Suspicious 1 EKG Normal 0 Age 45-64 1 Risk Factors 1 or 2 risk factors 1 Troponin Normal limit 0 Total 3 I personally scribed for DARRELL BALBUEAN MD ([email or web address]) on 02/16/24 at 10:58. Electronically submitted by Mejia Ewing ([email or web address]). I personally scribed for DARRELL BALBUENA MD ([email or web address]) on 02/16/24 at 11:10. Electronically submitted by Mejia Ewing ([email or web address]). DARRELL BALBUENA MD Feb 16, 2024 10:58
--- NOTE | 2024-02-16 11:05 | DVH ---
XY CHEST TWO VIEWS ROUTINE CLINICAL HISTORY: CP COMPARISON: None TECHNIQUE: Frontal and lateral view of the chest was obtained FINDINGS: Lines and Tubes: None Lungs: No focal consolidation. Pleura: No effusion. No pneumothorax. Cardiomediastinal contours: Unremarkable Bones: No acute osseous abnormality. IMPRESSION: No acute cardiopulmonary disease.
[2024-02-16 11:39] LABS: Urine Bacteria None Seen /hpf (None Seen); Urine WBC None Seen /hpf (0 - 3)
[2024-02-16 12:01] LABS: Urine Blood Negative /uL (Negative); Urine Clarity Clear (Clear); Urine Color Light-Yellow (Yellow); Urine Mucus FEW (None Seen); Urine Protein, UAD Negative (Negative); Urine Specific Gravity 1.015 (1.001-1.035); Urine Urobilinogen Normal (Negative); Urine pH 5.5 (5.0-9.0)
[2024-02-16] MEDS: NITROGLYCERIN 0.4 MG SL TAB SL ONE (13:49)
[2024-02-16] MEDS: ASPirin 325 MG TAB PO ONE (13:50)
--- NOTE | 2024-02-16 16:53 | DVHINCON2 ---
Date of service: Feb 16, 2024 History of Present Illness HPI Patient is a 48-year-old gentleman who presented with few days of chest discomfort and cough. He was recently diagnosed with bronchitis and has been started on Zithromax. Complains of ongoing diarrhea with Zithromax. His chest discomforts have been pruritic and he decided to come back to the hospital/emergency room for further evaluation. He is known to our practice from outside and before. He does have baseline history of paroxysmal AFib and is on Eliquis as outpatient. He has had negative nuclear stress test around a year ago. Cardiology is involved for cardiac aspects of care. Home Meds Active Scripts Promethazine-Dm (Promethazine Dm 6.25-15 mg/5Ml) 1 Ethel Ethel, 5 ML PO TID, #150 ML Prov:CHRISSIE SUH 02/11/24 Azithromycin (Azithromycin) 500 Mg Tab, 1 TAB PO DAILY, #5 TAB Prov:CHRISSIE SUH 02/11/24 Sucralfate (Sucralfate) 1 Gm Tab, 1 TAB PO QID for 30 Days, #120 TAB Prov:MCKENNA ROTH NP 11/15/23 Pantoprazole Sodium Sesquihydr (Pantoprazole Sodium) 40 Mg Tab, 1 TAB PO BID for 30 Days, #60 TAB Prov:MCKENNA ROTH NP 11/15/23 Sennosides-Docusate Sodium (Colace 2-in-1 8.6-50 mg) 1 Tab Tab, 1 TAB PO BID, #20 TAB 0 Refills Prov:VINCE TORIBIO MD 11/12/23 Polyethylene Glycol 3350 (Miralax) 17 Gm Pow, 17 GM PO DAILY, #100 POW 0 Refills Prov:VINCE TORIBIO MD 11/12/23 Pantoprazole Sodium Sesquihydr (Protonix) 40 Mg Tab, 40 MG PO BID for 30 Days, #60 TAB Prov:MCKENNA ROTH NP 10/16/23 Amiodarone HCl (Amiodarone HCl) 200 Mg Tab, 200 MG PO HS for 30 Days, #30 TAB Prov:MCKENNA ROTH NP 10/16/23 Reported Medications Amlodipine Besylate (Amlodipine Besylate) 10 Mg Tab, 1 TAB PO DAILY 11/14/23 Magnesium Oxide (Magnesium Oxide) 400 Mg Tab, 1 TAB PO DAILY 11/14/23 Dicyclomine Hcl (BENTYL CAPSULE) 10 Mg Cp, PO 11/14/23 Triamcinolone Acetonide (Triamcinolone Acetonide) 0.1 % Pst, 1 APPLIC TOP BID, APPLIC both arms 10/12/23 Albuterol Sulfate (VENTOLIN MDI) 90 Mcg Ih, 90 MCG IN Q4HP, INH 10/12/23 Apixaban Base (ELIQUIS) 5 Mg Tab, 5 MG PO BID, TAB 10/12/23 Metoprolol Tartrate (Metoprolol Tartrate) 50 Mg Tab, 50 MG PO BID, TAB 10/12/23 Meloxicam (Meloxicam) 15 Mg Tab, 1 TAB PO DAILY@BREAKFAST, #30 TAB 2 Refills 10/12/23 Amlodipine Besylate (Amlodipine Besylate) 5 Mg Tab, 10 MG PO DAILY, MG 10/12/23 Evolocumab (Repatha) 140 Mg/Ml Inj, 140 MG SC, INJ 10/12/23 Hctz (Hydrochlorothiazide) 25 Mg Tab, 25 MG PO DAILY, TAB 10/12/23 Dicyclomine Hcl (Dicyclomine Hcl) 20 Mg Tab, 40 MG PO TID, MG 10/12/23 Cholecalciferol (VITAMIN D3) 2,000 Unit Tab, 1 TAB PO DAILY, #30 TAB 5 Refills 10/12/23 Pravastatin Sodium (PRAVACHOL TABLET) 20 Mg Tb, 2 TAB PO DAILY, #30 TAB 5 Refills 10/12/23 Diphenhydramine Hcl (Banophen) 25 Mg Cap, 25 MG PO BID, CAP 10/12/23 Past Medical History Others Past medical history includes learning disability, hypertension, paroxysmal AFib (on Eliquis as outpatient), asthma, osteoarthritis, depression, BPH, hyperlipidemia (on Repatha as outpatient), migraines, history of vitamin-D deficiency and magnesium deficiency, CKD, GERD, short episodes of SVT and mild mitral valve prolapse. Patient Family History: Diabetes mellitus G8 FATHER, Smoker: Quit Alocohol: None Drugs: None Review of Systems Constitutional: Malaise Pulmonary/Respiratory: Cough, Pleuritic Chest Pain All Other Systems Fourteen point review of system was performed. Relevant findings as per above and as per HPI. Otherwise negative. H&P Exam Vital Signs Vital Signs Date Time Temp Pulse Resp B/P (MAP) Pulse Ox O2 Delivery O2 Flow Rate FiO2 02/16/24 13:49 151/91 02/16/24 11:16 71 02/16/24 10:52 98.5 16 97 General Appeara: Well developed, Well nourished Head Exam: Normal inspection Neck Exam: Normal inspection Eye Exam: bilateral eye PERRL Mouth: Normal Inspection Pulmonary/Respiratory: Rhonci Cardiovascular/Chest: Normal inspection, Regular rate Peripheral Pulses: 2+ carotid (R), 2+ carotid (L), 2+ femoral (R), 2+ femoral (L), 2+ dorsalis pedis (R), 2+ dorsalis pedis (L), 2+ Radial (R), 2+ Radial (L) Abdominal Exam: Normal bowel sounds, Soft, No tenderness, No hepatospenomegaly Neuro/Mental St: Alert, Oriented Appearance: Appropriate appearance Eye contact/ Speech: Cooperative Labs/Xrays Labs Test 02/16/24 13:37 02/16/24 10:36 02/16/24 10:34 Range/Units Troponin I High Sensitivity 3 L </=54 ng/L White Blood Count 5.5 4.4-10.8 10^3/uL Red Blood Count 5.17 4.5-5.90 10^6/uL Hemoglobin 17.7 H 13.5-17.5 g/dL Hematocrit 49.9 41.0-53.0 % Mean Corpuscular Volume 96.5 80.0-100.0 fL Mean Corpuscular Hemoglobin 34.2 H 28.0-32.0 pg Mean Corpuscular Hemoglobin Concent 35.4 32.0-36.0 g/dL Red Cell Distribution Width 13.8 11.8-14.3 % Platelet Count 286 140-450 10^3/uL Mean Platelet Volume 7.2 6.9-10.8 fL Neutrophils (%) (Auto) 70.4 37.0-80.0 % Lymphocytes (%) (Auto) 17.6 10.0-50.0 % Monocytes (%) (Auto) 9.9 0.0-12.0 % Eosinophils (%) (Auto) 2.0 0.0-7.0 % Basophils (%) (Auto) 0.1 0.0-2.0 % Neutrophils # (Auto) 3.9 1.6-8.6 10 ^3/uL Lymphocytes # (Auto) 1.0 0.4-5.4 10 ^3/uL Monocytes # (Auto) 0.5 0-1.3 10 ^3/uL Eosinophils # (Auto) 0.1 0-0.8 10 ^3/uL Basophils # (Auto) 0 0-0.2 10 ^3/uL Nucleated Red Blood Cells 0.1 % Urine Color Light-yellow Yellow Urine Clarity Clear Clear Urine pH 5.5 5.0-9.0 Urine Specific [place] 1.015 1.001-1.035 Urine Protein Negative Negative Urine Ketones Negative Negative Urine Blood Negative Negative /uL Urine Nitrite Negative Negative Urine Bilirubin Negative Negative Urine Urobilinogen Normal Negative mg/dL Urine Leukocyte Esterase Negative Negative /uL Urine RBC 1 0 - 3 /hpf Urine WBC None seen 0 - 3 /hpf Urine Squamous Epithelial Cells None seen <5 /hpf Urine Bacteria None seen None Seen /hpf Urine Mucus Few None Seen Urine Glucose Normal Normal mg/dL Assessment/Plan Plan Patient is a 48-year-old gentleman who presented with few days of chest discomfort and cough. He was recently diagnosed with bronchitis and has been started on Zithromax. Complains of ongoing diarrhea with Zithromax. His chest discomforts have been pruritic and he decided to come back to the hospital/emergency room for further evaluation. He is known to our practice from outside and before. He does have baseline history of paroxysmal AFib and is on Eliquis as outpatient. He has had negative nuclear stress test around a year ago. Cardiology is involved for cardiac aspects of care. Not in acute distress, walking easily and not in acute distress in emergency room floor. No carotid bruit. No JVD. Mucosa is pink and wet. Lungs: Clear to auscultation. Cardiac: Regular, no thrill/gallop, abdomen is soft. There is no gross mass/hepatomegaly. Extremities do not reveal edema. Dorsalis pedis is 2+ bilateral. Past medical history includes learning disability, hypertension, paroxysmal AFib (on Eliquis as outpatient), asthma, osteoarthritis, depression, BPH, hyperlipidemia (on Repatha as outpatient), migraines, history of vitamin-D defi ciency and magnesium deficiency, CKD, GERD, short episodes of SVT and mild mitral valve prolapse. He is allergic to statins and is on Repatha as outpatient. Nuclear stress test of February 2023 did not reveal ischemia and reported ejection fraction of 77%. Echocardiogram of December 24, 2022 (performed in the office) revealed ejection fraction of 65-70%, mild MR/TR/PI and mild mitral valve prolapse Echocardiogram of October 13, 2023 had revealed ejection fraction of 64%, trace MR/TR/PI Hemoglobin: 17.7 WBC: 5.5 Troponin (high sensitive): <3 - <3 - <3 Urinalysis was within normal limits Chest x-ray revealed (image reviewed by self): IMPRESSION: No acute cardiopulmonary disease. EKG revealed sinus rhythm with nonspecific ST-T changes Telemetry has revealed sinus rhythm Patient is a 48-year-old gentleman who presented with atypical/pleuritic chest discomfort and cough. Does have recent diagnosis of bronchitis. Has been on antibiotics (Zithromax) as outpatient. Serial high sensitive troponin has also been negative. EKG has been nonrevealing. Acute coronary syndrome is not considered. Pleuritic chest pain History of recent bronchitis Paroxysmal AFib Hypertension Depression BPH SVT Mild mitral valve prolapse as outpatient Cardiac suggestion for management: Manage on telemetry Follow-up electrolytes and kidney function tests and correct abnormalities. Keep potassium above 4 and magnesium above 2 Long-term continuation of full anticoagulation (Eliquis) is advised No indication for repeat ischemic workup Cardiac-kovacs, the patient can be followed as outpatient Evaluation and management for bronchitis as per primary team A total of 65 minutes was spent reviewing the patient record, examining the patient, making a diagnostic and therapeutic plan, discussing this plan with medical personnel, following up on diagnostic studies and following the patient for clinical stability excluding any and all procedures. At least 50% of this time was spent in direct, [id number] contact. Thank you for allowing me to participate in this patient's care. Further recommendations will depend on patient's clinical course. Please do not hesitate to contact me if you have any questions or concerns. This medical document was created using electronic medical record system with [employer] dictation system. Although this document has been carefully reviewed, there may still be some phonetic and typographical errors. These areas are purely typographical due to the imperfection of the software programs, and do not reflect any compromise in the patient's medical care. Plan discussed with: Patient, Other (nurse) APOORVA JON MD Feb 16, 2024 16:53
--- NOTE | 2024-02-16 18:48 | ECG ---
[facility] Test Date: 2024-02-16 Test Time: 11:14:17 Pat Name: LUIS MIGUEL JOSHI Department: ED Room: 0233T Gender: M Survey Research Analyst: MICHELLE : 1975 Requested By: DARRELL BALBUENA Order Number: [id number] Reading MD: James Moses Measurements Intervals [place] Rate: 71 P: 62 PA: 166 QRS: 78 QRSD: 89 T: -13 QT: 375 QTc: 408 Interpretive Statements Sinus rhythm Borderline T abnormalities, inferior leads Borderline ST elevation, lateral leads Electronically Signed On 02-24-2024 13:04:44 PST by James Moses Please click the below link to view image of tracing.
[2024-02-16] MEDS: ONDANSETRON HCL 4 MG/2 ML VIAL IV PRN (20:42)
[2024-02-16 20:44] VITALS: PULSE 76; RESP 16; O2SAT 98
[2024-02-16] MEDS: NITROGLYCERIN 0.4 MG SL TAB SL PRN (22:22)
[2024-02-17 01:00] VITALS: BP 130/79; PULSE 75; RESP 16; TEMP 98.8; O2SAT 97
[2024-02-17 05:55] LABS: Basophils # (auto) 0 10 ^3/uL (0-0.2); Basophils % (auto) 0.2 % (0.0-2.0); Eosinophils # (auto) 0.1 10 ^3/uL (0-0.8); Hematocrit 47.7 % (41.0-53.0); Hemoglobin 16.6 g/dL (13.5-17.5); Lymphocytes # (auto) 1.3 10 ^3/uL (0.4-5.4); Lymphocytes % (auto) 18.2 % (10.0-50.0); Mean Corpuscular Hemoglobin 33.8 pg (28.0-32.0); Mean Corpuscular Hgb Conc. 34.7 g/dL (32.0-36.0); Mean Corpuscular Volume 97.5 fL (80.0-100.0); Monocytes # (auto) 0.5 10 ^3/uL (0-1.3); Monocytes % (auto) 7.7 % (0.0-12.0); Neutrophils # (auto) 5.1 10 ^3/uL (1.6-8.6); Neutrophils % (auto) 72.9 % (37.0-80.0); Platelet Count (auto) 272 10^3/uL (140-450); Red Blood Cells 4.89 10^6/uL (4.5-5.90); Red Cell Distribution Width 13.6 % (11.8-14.3)
[2024-02-17 06:14] LABS: Alanine Aminotransferase 55 U/L (7-40); Albumin 5.3 g/dL (3.2-4.8); Alkaline Phosphatase 92 U/L (46-116); Anion Gap 13 (5-15); Aspartate Aminotransferase 27 U/L (13-40); BUN/Creatinine Ratio 15.4 (10.0-20.0); Blood Urea Nitrogen 20 mg/dL (9-23); Calcium 10.5 mg/dL (8.7-10.4); Carbon Dioxide 26 mmol/L (20-31); Chloride 102 mmol/L (98-107); Glucose 109 mg/dL (74-106); Potassium 3.4 mmol/L (3.5-5.1); Sodium 141 mmol/L (136-145)
--- NOTE | 2024-02-17 07:51 | DVHPN2 ---
Progress Note - Dictate Date Seen: Feb 17, 2024 Medical Necessity Reason Pt with a Central, PICC or Fol: No vital signs Vital Sign Date Time Temp Pulse Resp B/P (MAP) Pulse Ox O2 Delivery O2 Flow Rate FiO2 02/17/24 06:15 92 16 137/80 (99) 98 02/16/24 20:44 Room Air* 0 21 02/16/24 10:52 98.5 medications Current Medications Medications Dose Ordered Sig/Yesenia Route Start Time Stop Time Status Last Admin Dose Admin Ondansetron HCl 4 mg Q4HP PRN IV 02/16/24 16:00 02/16/24 20:42 4 MG Enoxaparin Sodium 40 mg DAILY SC 02/17/24 10:00 Nitroglycerin 0.4 mg Q5MINP PRN SL 02/16/24 16:00 02/17/24 01:34 0.4 MG laboratory and microbiology Laboratory Tests 02/17/24 04:57 Test 02/17/24 04:57 Range/Units Serum Glucose 109 H 74-106 mg/dL Assessment/Plan Patient is a 48-year-old gentleman who presented with few days of chest discomfort and cough. He was recently diagnosed with bronchitis and has been started on Zithromax. Complains of ongoing diarrhea with Zithromax. His chest discomforts have been pruritic and he decided to come back to the hospital/emergency room for further evaluation. He is known to our practice from outside and before. He does have baseline history of paroxysmal AFib and is on Eliquis as outpatient. He has had negative nuclear stress test around a year ago. Cardiology is involved for cardiac aspects of care. Not in acute distress, walking easily and not in acute distress in emergency room floor. No carotid bruit. No JVD. Mucosa is pink and wet. Lungs: Clear to auscultation. Cardiac: Regular, no thrill/gallop, abdomen is soft. There is no gross mass/hepatomegaly. Extremities do not reveal edema. Dorsalis pedis is 2+ bilateral. Past medical history includes learning disability, hypertension, paroxysmal AFib (on Eliquis as outpatient), asthma, osteoarthritis, depression, BPH, hyperlipidemia (on Repatha as outpatient), migraines, history of vitamin-D deficiency and magnesium deficiency, CKD, GERD, short episodes of SVT and mild mitral valve prolapse. He is allergic to statins and is on Repatha as outpatient. Nuclear stress test of February 2023 did not reveal ischemia and reported ejection fraction of 77%. Echocardiogram of December 24, 2022 (performed in the office) revealed ejection fraction of 65-70%, mild MR/TR/PI and mild mitral valve prolapse Echocardiogram of October 13, 2023 had revealed ejection fraction of 64%, trace MR/TR/PI Hemoglobin: 17.7 - 1.66 WBC: 5.5 - 7.0 Troponin (high sensitive): <3 - <3 - 3 - <3 Creat: 1.3 K: 3.4 Urinalysis was within normal limits Chest x-ray revealed (image reviewed by self): IMPRESSION: No acute cardiopulmonary disease. EKG revealed sinus rhythm with nonspecific ST-T changes Telemetry has revealed sinus rhythm Patient is a 48-year-old gentleman who presented with atypical/pleuritic chest discomfort and cough. Does have recent diagnosis of bronchitis. Has been on antibiotics (Zithromax) as outpatient. Serial high sensitive troponin has also been negative. EKG has been nonrevealing. Acute coronary syndrome is not considered. Pleuritic chest pain History of recent bronchitis Paroxysmal AFib Hypertension Depression BPH SVT Mild mitral valve prolapse as outpatient Cardiac suggestion for management: Manage on telemetry Follow-up electrolytes and kidney function tests and correct abnormalities. Keep potassium above 4 and magnesium above 2 Long-term continuation of full anticoagulation (Eliquis) is advised No indication for repeat ischemic workup Cardiac-kovacs, the patient can be followed as outpatient Evaluation and management for bronchitis as per primary team A total of 55 minutes was spent reviewing the patient record, examining the patient, making a diagnostic and therapeutic plan, discussing this plan with medical personnel, following up on diagnostic studies and following the patient for clinical stability excluding any and all procedures. At least 50% of this time was spent in direct, [id number] contact. Thank you for allowing me to participate in this patient's care. Further recommendations will depend on patient's clinical course. Please do not hesitate to contact me if you have any questions or concerns. This medical document was created using electronic medical record system with [employer] computerized dictation system. Although this document has been carefully reviewed, there may still be some phonetic and typographical errors. These areas are purely typographical due to the imperfection of the software programs, and do not reflect any compromise in the patient's medical care. Plan discussed with: Patient, Other (nurse) APOORVA JON MD Feb 17, 2024 07:51
[2024-02-17] MEDS: ENOXAPARIN SOD 40 MG/0.4 ML SYRINGE SC SCH (10:26)
[2024-02-17 10:39] VITALS: RESP 16
[2024-02-17] MEDS: HYDROcodone-ACET 5/325MG TAB PO ONE (11:37)
--- NOTE | 2024-02-17 14:36 | DVHDS2 ---
Discharge Summary Date of Admission Feb 16, 2024 at 15:54 Labs/Diagnostic Data: Laboratory Results Test 02/17/24 04:57 02/16/24 17:43 02/16/24 10:34 White Blood Count 7.0 10^3/uL (4.4-10.8) Red Blood Count 4.89 10^6/uL (4.5-5.90) Hemoglobin 16.6 g/dL (13.5-17.5) Hematocrit 47.7 % (41.0-53.0) Mean Corpuscular Volume 97.5 fL (80.0-100.0) Mean Corpuscular Hemoglobin 33.8 pg (28.0-32.0) Mean Corpuscular Hemoglobin Concent 34.7 g/dL (32.0-36.0) Red Cell Distribution Width 13.6 % (11.8-14.3) Platelet Count 272 10^3/uL (140-450) Mean Platelet Volume 7.4 fL (6.9-10.8) Neutrophils (%) (Auto) 72.9 % (37.0-80.0) Lymphocytes (%) (Auto) 18.2 % (10.0-50.0) Monocytes (%) (Auto) 7.7 % (0.0-12.0) Eosinophils (%) (Auto) 1.0 % (0.0-7.0) Basophils (%) (Auto) 0.2 % (0.0-2.0) Neutrophils # (Auto) 5.1 10 ^3/uL (1.6-8.6) Lymphocytes # (Auto) 1.3 10 ^3/uL (0.4-5.4) Monocytes # (Auto) 0.5 10 ^3/uL (0-1.3) Eosinophils # (Auto) 0.1 10 ^3/uL (0-0.8) Basophils # (Auto) 0 10 ^3/uL (0-0.2) Nucleated Red Blood Cells 0.0 % Sodium Level 141 mmol/L (136-145) Potassium Level 3.4 mmol/L (3.5-5.1) Chloride Level 102 mmol/L (98-107) Carbon Dioxide Level 26 mmol/L (20-31) Anion Gap 13 (5-15) Blood Urea Nitrogen 20 mg/dL (9-23) Creatinine 1.30 mg/dL (0.700-1.30) Glomerular Filtration Rate Calc 67 mL/min (>90) BUN/Creatinine Ratio 15.4 (10.0-20.0) Serum Glucose 109 mg/dL (74-106) Calcium Level 10.5 mg/dL (8.7-10.4) Total Bilirubin 1.0 mg/dL (0.2-1.0) Aspartate Amino Transferase (AST) 27 U/L (13-40) Alanine Aminotransferase (ALT) 55 U/L (7-40) Alkaline Phosphatase 92 U/L (46-116) Total Protein 8.0 g/dL (5.7-8.2) Albumin 5.3 g/dL (3.2-4.8) Troponin I High Sensitivity < 3 ng/L (</=54) Urine Color Light-yellow (Yellow) Urine Clarity Clear (Clear) Urine pH 5.5 (5.0-9.0) Urine Specific [place] 1.015 (1.001-1.035) Urine Protein Negative (Negative) Urine Ketones Negative (Negative) Urine Blood Negative /uL (Negative) Urine Nitrite Negative (Negative) Urine Bilirubin Negative (Negative) Urine Urobilinogen Normal mg/dL (Negative) Urine Leukocyte Esterase Negative /uL (Negative) Urine RBC 1 /hpf (0 - 3) Urine WBC None seen /hpf (0 - 3) Urine Squamous Epithelial Cells None seen /hpf (<5) Urine Bacteria None seen /hpf (None Seen) Urine Mucus Few (None Seen) Urine Glucose Normal mg/dL (Normal) Other Laboratory Tests 02/17/24 04:57 Discharge Statement: "Patient was advised to return to the ER or call 911 if any headaches, dizziness, shortness of breath, chest pain, abdominal pain, bleeding, fevers, or worsening of medical condition. Patient was counseled about treatment plan, medications, possible side effects, patientverbalized understanding. All questions were answered to the best of my ability. This discharge took greater then 30 minutes in planning, reviewing documentation, counseling the patient, and discussing with other team members." ASSESSMENT ASSESSMENT Assessment MCKENNA ROTH NP Feb 17, 2024 14:36
--- NOTE | 2024-02-17 14:36 | DVHHP2 ---
Admitting Diagnosis: Date of admission: 02/16/2024 History of Present Illness 48 y/o male patient presents with complaint of chest pain. Patient states he has had sharp chest pain across his chest for the past few days. Patient also complains of cough. Patient states he was recently diagnosed with bronchitis and was prescribed antibiotics, which have been causing diarrhea. While in the emergency department the patient was evaluated by the provider, As per provider: Labs, vital signs, and imagining monitored. Patient will be admitted for further evaluation and treatment. I discussed admission with the patient/family and is in agreement to treatment plan. Patient Family History: Diabetes mellitus G8 FATHER, Allergies: Coded Allergies: Acetaminophen (Verified Allergy, Unknown, 03/02/23) Amoxicillin (Verified Allergy, Unknown, 03/02/23) Codeine (Verified Allergy, Unknown, 03/02/23) Ibuprofen (Verified Allergy, Unknown, 03/02/23) Morphine (Verified Allergy, Unknown, 03/02/23) Penicillins (Verified Allergy, Unknown, 03/02/23) Statins (Verified Allergy, Unknown, 03/02/23) Tramadol (Verified Allergy, Unknown, 03/02/23) Uncoded Allergies: WALNUTS (Allergy, Unknown, 03/02/23) Home Meds Active Scripts Promethazine-Dm (Promethazine Dm 6.25-15 mg/5Ml) 1 Ethel Ethel, 5 ML PO TID, #150 ML Prov:CHRISSIE SUH 02/11/24 Azithromycin (Azithromycin) 500 Mg Tab, 1 TAB PO DAILY, #5 TAB Prov:CHRISSIE SUH 02/11/24 Sucralfate (Sucralfate) 1 Gm Tab, 1 TAB PO QID for 30 Days, #120 TAB Prov:MCKENNA ROTH NP 11/15/23 Pantoprazole Sodium Sesquihydr (Pantoprazole Sodium) 40 Mg Tab, 1 TAB PO BID for 30 Days, #60 TAB Prov:MCKENNA ROTH NP 11/15/23 Sennosides-Docusate Sodium (Colace 2-in-1 8.6-50 mg) 1 Tab Tab, 1 TAB PO BID, #20 TAB 0 Refills Prov:VINCE TORIBIO MD 11/12/23 Polyethylene Glycol 3350 (Miralax) 17 Gm Pow, 17 GM PO DAILY, #100 POW 0 Refills Prov:VINCE TORIBIO MD 11/12/23 Pantoprazole Sodium Sesquihydr (Protonix) 40 Mg Tab, 40 MG PO BID for 30 Days, #60 TAB Prov:KHURRAMMCKENNA SPEAR Tena MEDICA[employer] COLLECTION SPECIALIST 10/16/23 Amiodarone HCl (Amiodarone HCl) 200 Mg Tab, 200 MG PO HS for 30 Days, #30 TAB Prov:KHURRAMTONYA SPEARDEEPAK M[place] MEDICAID COLLECTION SPECIALIST 10/16/23 Reported Medications Amlodipine Besylate (Amlodipine Besylate) 10 Mg Tab, 1 TAB PO DAILY 11/14/23 Magnesium Oxide (Magnesium Oxide) 400 Mg Tab, 1 TAB PO DAILY 11/14/23 Dicyclomine Hcl (BENTYL CAPSULE) 10 Mg Cp, PO 11/14/23 Triamcinolone Acetonide (Triamcinolone Acetonide) 0.1 % Pst, 1 APPLIC TOP BID, APPLIC both arms 10/12/23 Albuterol Sulfate (VENTOLIN MDI) 90 Mcg Ih, 90 MCG IN Q4HP, INH 10/12/23 Apixaban Base (ELIQUIS) 5 Mg Tab, 5 MG PO BID, TAB 10/12/23 Metoprolol Tartrate (Metoprolol Tartrate) 50 Mg Tab, 50 MG PO BID, TAB 10/12/23 Meloxicam (Meloxicam) 15 Mg Tab, 1 TAB PO DAILY@BREAKFAST, #30 TAB 2 Refills 10/12/23 Amlodipine Besylate (Amlodipine Besylate) 5 Mg Tab, 10 MG PO DAILY, MG 10/12/23 Evolocumab (Repatha) 140 Mg/Ml Inj, 140 MG SC, INJ 10/12/23 Hctz (Hydrochlorothiazide) 25 Mg Tab, 25 MG PO DAILY, TAB 10/12/23 Dicyclomine Hcl (Dicyclomine Hcl) 20 Mg Tab, 40 MG PO TID, MG 10/12/23 Cholecalciferol (VITAMIN D3) 2,000 Unit Tab, 1 TAB PO DAILY, #30 TAB 5 Refills 10/12/23 Pravastatin Sodium (PRAVACHOL TABLET) 20 Mg Tb, 2 TAB PO DAILY, #30 TAB 5 Refills 10/12/23 Diphenhydramine Hcl (Banophen) 25 Mg Cap, 25 MG PO BID, CAP 10/12/23 Current Medications Current Medications Medications (Trade) Dose Ordered Sig/Yesenia Route PRN Reason Start Time Stop Time Status Last Admin Enoxaparin Sodium (Lovenox) 40 mg DAILY SC 02/17/24 10:00 02/17/24 16:50 DC 02/17/24 10:26 Doxycycline Hyclate 250 ml @ 125 mls/hr Q12H IV 02/17/24 15:00 02/17/24 15:00 Diphenoxylate HCl/ Atropine (Lomotil Tablet) 2.5 mg Q6HP PRN PO FOR DIARRHEA 02/17/24 15:00 Albuterol (Ventolin Medneb) 2.5 mg Q6HPRN PRN NEB SHORTNESS OF BREATH 02/17/24 15:00 Guaifenesin/ Dextromethorphan (Robitussin-Dm Liquid) 10 ml Q4HP PRN PO FOR COUGH 02/17/24 15:00 Amiodarone HCl (Cordarone Tablet) 200 mg HS PO 02/17/24 22:00 Amlodipine Besylate (Norvasc Tablet) 10 mg DAILY PO 02/18/24 10:00 Apixaban (Eliquis) 5 mg BID PO 02/17/24 22:00 Metoprolol Tartrate (Lopressor Tablet) 50 mg BID PO 02/17/24 22:00 Sucralfate (Carafate Tab) 1 gm QID PO 02/17/24 18:00 02/17/24 18:17 Review of Systems Constitutional: denies chills, denies fever, denies malaise Eyes: denies eye pain, denies vision change ENT: denies ear pain, denies headache, denies nasal congestion, denies painful swallowing, denies voice change Cardiovascular: denies chest pain, denies edema, denies orthopnea, denies palpitations, denies paroxysmal nocturnal dyspnea Respiratory: denies cough, denies shortness of breath Gastrointestinal: denies constipation, denies diarrhea, denies nausea, denies vomiting Genitourinary: denies dysuria, denies frequent urination, denies urethral discharge Musculoskeletal: denies back pain, denies joint pain, denies muscle pain Skin: denies bruising, denies itching, denies rash Neurological: denies focal weakness, denies headache, denies sensory changes Psychiatric: denies anxiety, denies depression Endocrine: denies polydipsia, denies polyuria Hematologic/Lymphatic: denies easy bleeding, denies easy bruising, denies enlarged lymph nodes Allergic/Immunologic: denies allergy, denies hives Vital Signs Vital Signs Date Time Temp Pulse Resp B/P (MAP) Pulse Ox O2 Delivery O2 Flow Rate FiO2 02/17/24 18:12 144/80 02/17/24 16:00 99.2 130 18 98 0.0 21 99.2 02/17/24 10:39 Room Air* Physical Exam General Appearance: alert, no distress HEENT: EOMI, PERRLA, normal external inspect of ears, no icterus, no nasal drainage Neck: no carotid bruit, no jugular venous distention (JVD), no lymphadenopathy Chest: normal thorax Respiratory: clear to auscultation, normal air movement Cardiovascular: regular rate and rhythm, no diastolic murmur, no jugular venous distention (JVD), no rub, no systolic murmur Abdominal: soft, no hepatomegaly, no mass, no splenomegaly, no tenderness Genitourinary: grossly normal external Musculoskeletal: no joint tenderness, no swelling Extremities: normal pulses, no calf tenderness, no clubbing, no cyanosis, no edema Skin: no bruising, no jaundice, no rash Neurological: alert, No focal deficit Results Labs Test 02/17/24 04:57 02/16/24 17:43 02/16/24 10:34 Range/Units White Blood Count 7.0 # 4.4-10.8 10^3/uL Red Blood Count 4.89 4.5-5.90 10^6/uL Hemoglobin 16.6 13.5-17.5 g/dL Hematocrit 47.7 41.0-53.0 % Mean Corpuscular Volume 97.5 80.0-100.0 fL Mean Corpuscular Hemoglobin 33.8 H 28.0-32.0 pg Mean Corpuscular Hemoglobin Concent 34.7 32.0-36.0 g/dL Red Cell Distribution Width 13.6 11.8-14.3 % Platelet Count 272 140-450 10^3/uL Mean Platelet Volume 7.4 6.9-10.8 fL Neutrophils (%) (Auto) 72.9 37.0-80.0 % Lymphocytes (%) (Auto) 18.2 10.0-50.0 % Monocytes (%) (Auto) 7.7 0.0-12.0 % Eosinophils (%) (Auto) 1.0 0.0-7.0 % Basophils (%) (Auto) 0.2 0.0-2.0 % Neutrophils # (Auto) 5.1 1.6-8.6 10 ^3/uL Lymphocytes # (Auto) 1.3 0.4-5.4 10 ^3/uL Monocytes # (Auto) 0.5 0-1.3 10 ^3/uL Eosinophils # (Auto) 0.1 0-0.8 10 ^3/uL Basophils # (Auto) 0 0-0.2 10 ^3/uL Nucleated Red Blood Cells 0.0 % Sodium Level 141 136-145 mmol/L Potassium Level 3.4 L 3.5-5.1 mmol/L Chloride Level 102 98-107 mmol/L Carbon Dioxide Level 26 20-31 mmol/L Anion Gap 13 5-15 Blood Urea Nitrogen 20 9-23 mg/dL Creatinine 1.30 0.700-1.30 mg/dL Glomerular Filtration Rate Calc 67 >90 mL/min BUN/Creatinine Ratio 15.4 10.0-20.0 Serum Glucose 109 H 74-106 mg/dL Calcium Level 10.5 H 8.7-10.4 mg/dL Total Bilirubin 1.0 0.2-1.0 mg/dL Aspartate Amino Transferase (AST) 27 13-40 U/L Alanine Aminotransferase (ALT) 55 H 7-40 U/L Alkaline Phosphatase 92 46-116 U/L Total Protein 8.0 5.7-8.2 g/dL Albumin 5.3 H 3.2-4.8 g/dL Troponin I High Sensitivity < 3 L </=54 ng/L Urine Color Light-yellow Yellow Urine Clarity Clear Clear Urine pH 5.5 5.0-9.0 Urine Specific [place] 1.015 1.001-1.035 Urine Protein Negative Negative Urine Ketones Negative Negative Urine Blood Negative Negative /uL Urine Nitrite Negative Negative Urine Bilirubin Negative Negative Urine Urobilinogen Normal Negative mg/dL Urine Leukocyte Esterase Negative Negative /uL Urine RBC 1 0 - 3 /hpf Urine WBC None seen 0 - 3 /hpf Urine Squamous Epithelial Cells None seen <5 /hpf Urine Bacteria None seen None Seen /hpf Urine Mucus Few None Seen Urine Glucose Normal Normal mg/dL Plan 1. Chest pain Monitor, cardiology consult, trend troponin, monitor EKG 2. Bronchitis Monitor, IV abx, Med-Neb tx 3. Diarrhea Monitor 4. Benign essential HTN Monitor, medications Plan discussed with: Patient, Other MCKENNA ROTH MEDICAID COLLECTION SPECIALIST Feb 17, 2024 14:36
--- NOTE | 2024-02-17 14:59 | DVHPN2 ---
Progress Note - Dictate Date Seen: Feb 17, 2024 Medical Necessity Reason Pt with a Central, PICC or Fol: No vital signs Vital Sign Date Time Temp Pulse Resp B/P (MAP) Pulse Ox O2 Delivery O2 Flow Rate FiO2 02/17/24 13:46 140/85 02/17/24 13:41 102 14 98 02/17/24 10:43 99.2 99.2 02/17/24 10:39 Room Air* 0 21 medications Current Medications Medications Dose Ordered Sig/Yesenia Route Start Time Stop Time Status Last Admin Dose Admin Ondansetron HCl 4 mg Q4HP PRN IV 02/16/24 16:00 02/17/24 13:45 4 MG Enoxaparin Sodium 40 mg DAILY SC 02/17/24 10:00 02/17/24 10:26 40 MG Nitroglycerin 0.4 mg Q5MINP PRN SL 02/16/24 16:00 02/17/24 13:46 0.4 MG Doxycycline Hyclate 250 ml @ 125 mls/hr Q12H IV 02/17/24 15:00 UNV Diphenoxylate HCl/ Atropine 2.5 mg Q6HP PRN PO 02/17/24 15:00 UNV Albuterol 2.5 mg Q6HPRN PRN NEB 02/17/24 15:00 UNV Guaifenesin/ Dextromethorphan 10 ml Q4HP PRN PO 02/17/24 15:00 UNV objective General Appearance: alert, no distress HEENT: EOMI, PERRLA, normal external inspect of ears, no icterus, no nasal drainage Neck: no carotid bruit, no jugular venous distention (JVD), no lymphadenopathy Chest: normal thorax Respiratory: clear to auscultation, normal air movement Cardiovascular: regular rate and rhythm, no diastolic murmur, no jugular venous distention (JVD), no rub, no systolic murmur Abdominal: soft, no hepatomegaly, no mass, no splenomegaly, no tenderness Genitourinary: grossly normal external Musculoskeletal: no joint tenderness, no swelling Extremities: normal pulses, no calf tenderness, no clubbing, no cyanosis, no edema Skin: no bruising, no jaundice, no rash Neurological: alert, No focal deficit laboratory and microbiology Laboratory Tests 02/17/24 04:57 Test 02/17/24 04:57 Range/Units Serum Glucose 109 H 74-106 mg/dL Problem List 1. Chest pain Monitor, cardiology consult, trend troponin, monitor EKG 2. Bronchitis Monitor, IV abx, Med-Neb tx 3. Diarrhea Monitor 4. Benign essential HTN Monitor, medications Assessment/Plan Subjective Patient is awake and alert. Objective Patient was cleared for discharge by cardiology, however patient appears very ill looking. Patient states he has had diarrhea since last admission. Patient's eyes are very red and bloodshot. Patient states he has chest pain. Per cardiology it is most likely related to bronchitis. Plan Start IV antibiotics. Send stool for C. diff. Monitor EKG overnight. Start cough medicine as needed. DC planning in 1-2 days. Plan discussed with: Patient, Other MCKENNA ROTH NP Feb 17, 2024 14:59
[2024-02-17] MEDS ORDERED: DIPHENOXYLATE W/ATROPINE 2.5 MG TAB PO PRN (15:00)
[2024-02-17] MEDS: DOXYCYCLINE 100MG/250ML 250 ML IV SCH (15:00)
[2024-02-17 16:00] VITALS: BP 140/85; PULSE 130; RESP 18; TEMP 99.2; O2SAT 98
[2024-02-17] MEDS: SUCRALFATE 1 GM TAB PO SCH (18:17)
[2024-02-17 19:00] VITALS: O2SAT 97
[2024-02-17 20:25] VITALS: PULSE 80; RESP 14; O2SAT 97
[2024-02-17] MEDS: AMIODARONE HCL 200 MG TAB PO SCH (21:45)
[2024-02-17] MEDS: APIXABAN 5 MG TAB PO SCH (21:45)
[2024-02-17] MEDS: METOPROLOL TARTRATE 50 MG TAB PO SCH (21:45)
[2024-02-17 22:39] LABS: Rapid Influenza A Negative (Negative); Rapid Influenza B Negative (Negative)
[2024-02-18] VITALS (14 sets, daily range): BP systolic 114–140; BP diastolic 69–87; PULSE 70–83; RESP 16–20; TEMP 97.6–98.6; O2SAT 93–100
[2024-02-18] MEDS: ALBUTEROL SULF 2.5 MG/0.5ML(0.5%) NEB SOLN NEB PRN (00:21)
[2024-02-18 04:14] LABS: COVID19 ANTIGEN SOFIA FIA NEGATIVE (NEGATIVE)
--- NOTE | 2024-02-18 06:06 | DVHPN2 ---
Progress Note - Dictate Date Seen: Feb 18, 2024 Medical Necessity Reason Pt with a Central, PICC or Fol: No vital signs Vital Sign Date Time Temp Pulse Resp B/P (MAP) Pulse Ox O2 Delivery O2 Flow Rate FiO2 02/18/24 05:00 98.6 70 16 124/87 (99) 98 98.6 02/17/24 23:05 Nasal Cannula* 1 24 Total Intake and Output 02/17/24 02/17/24 02/18/24 15:00 23:00 07:00 Intake Total 0 ml 250 ml Balance 0 ml 250 ml medications Current Medications Medications Dose Ordered Sig/Yesenia Route Start Time Stop Time Status Last Admin Dose Admin Ondansetron HCl 4 mg Q4HP PRN IV 02/16/24 16:00 02/17/24 13:45 4 MG Nitroglycerin 0.4 mg Q5MINP PRN SL 02/16/24 16:00 02/17/24 19:52 0.4 MG Doxycycline Hyclate 250 ml @ 125 mls/hr Q12H IV 02/17/24 15:00 02/18/24 02:28 125 MLS/HR Diphenoxylate HCl/ Atropine 2.5 mg Q6HP PRN PO 02/17/24 15:00 Albuterol 2.5 mg Q6HPRN PRN NEB 02/17/24 15:00 02/18/24 00:21 2.5 MG Guaifenesin/ Dextromethorphan 10 ml Q4HP PRN PO 02/17/24 15:00 Amiodarone HCl 200 mg HS PO 02/17/24 22:00 02/17/24 21:45 200 MG Amlodipine Besylate 10 mg DAILY PO 02/18/24 10:00 Apixaban 5 mg BID PO 02/17/24 22:00 02/17/24 21:45 5 MG Metoprolol Tartrate 50 mg BID PO 02/17/24 22:00 02/17/24 21:45 50 MG Sucralfate 1 gm QID PO 02/17/24 18:00 02/17/24 21:45 1 GM laboratory and microbiology Laboratory Tests 02/17/24 04:57 Test 02/17/24 04:57 Range/Units Serum Glucose 109 H 74-106 mg/dL Assessment/Plan Patient is a 48-year-old gentleman who presented with few days of chest discomfort and cough. He was recently diagnosed with bronchitis and has been started on Zithromax. Complains of ongoing diarrhea with Zithromax. His chest discomforts have been pruritic and he decided to come back to the hospital/emergency room for further evaluation. He is known to our practice from outside and before. He does have baseline history of paroxysmal AFib and is on Eliquis as outpatient. He has had negative nuclear stress test around a year ago. Cardiology is involved for cardiac aspects of care. Not in acute distress, walking easily and not in acute distress in emergency room floor. No carotid bruit. No JVD. Mucosa is pink and wet. Lungs: Clear to auscultation. Cardiac: Regular, no thrill/gallop, abdomen is soft. There is no gross mass/hepatomegaly. Extremities do not reveal edema. Dorsalis pedis is 2+ bilateral. Past medical history includes learning disability, hypertension, paroxysmal AFib (on Eliquis as outpatient), asthma, osteoarthritis, depression, BPH, hyperlipidemia (on Repatha as outpatient), migraines, history of vitamin-D deficiency and magnesium deficiency, CKD, GERD, short episodes of SVT and mild mitral valve prolapse. He is allergic to statins and is on Repatha as outpatient. Nuclear stress test of February 2023 did not reveal ischemia and reported ejection fraction of 77%. Echocardiogram of December 24, 2022 (performed in the office) revealed ejection fraction of 65-70%, mild MR/TR/PI and mild mitral valve prolapse Echocardiogram of October 13, 2023 had revealed ejection fraction of 64%, trace MR/TR/PI Hemoglobin: 17.7 - 1.66 WBC: 5.5 - 7.0 Troponin (high sensitive): <3 - <3 - 3 - <3 Creat: 1.3 K: 3.4 Urinalysis was within normal limits Chest x-ray revealed (image reviewed by self): IMPRESSION: No acute cardiopulmonary disease. EKG revealed sinus rhythm with nonspecific ST-T changes Telemetry has revealed sinus rhythm Patient is a 48-year-old gentleman who presented with atypical/pleuritic chest discomfort and cough. Does have recent diagnosis of bronchitis. Has been on antibiotics (Zithromax) as outpatient. Serial high sensitive troponin has also been negative. EKG has been nonrevealing. Acute coronary syndrome is not considered. Pleuritic chest pain History of recent bronchitis Paroxysmal AFib Hypertension Depression BPH SVT Mild mitral valve prolapse as outpatient Cardiac suggestion for management: Manage on telemetry Follow-up electrolytes and kidney function tests and correct abnormalities. Keep potassium above 4 and magnesium above 2 Long-term continuation of full anticoagulation (Eliquis) is advised No indication for repeat ischemic workup Cardiac-kovacs, the patient can be followed as outpatient Evaluation and management for bronchitis as per primary team A total of 55 minutes was spent reviewing the patient record, examining the patient, making a diagnostic and therapeutic plan, discussing this plan with medical personnel, following up on diagnostic studies and following the patient for clinical stability excluding any and all procedures. At least 50% of this time was spent in direct, [id number] contact. Thank you for allowing me to participate in this patient's care. Further recommendations will depend on patient's clinical course. Please do not hesitate to contact me if you have any questions or concerns. This medical document was created using electronic medical record system with [employer] computerized dictation system. Although this document has been carefully reviewed, there may still be some phonetic and typographical errors. These areas are purely typographical due to the imperfection of the software programs, and do not reflect any compromise in the patient's medical care. Plan discussed with: Patient, Other (nurse) APOORVA JON MD Feb 18, 2024 06:06
[2024-02-18] MEDS: amLODIPine BESYLATE 5 MG TAB PO SCH (09:21)
--- NOTE | 2024-02-18 11:15 | ECG ---
[facility] Test Date: 2024-02-16 Test Time: 10:28:07 Pat Name: LUIS MIGUEL JOSHI Department: ER Room: 0233T A Gender: M Claim Benefit Specialist: GLORIA : 1975 Requested By: DARRELL BALBUENA Order Number: [id number] Reading MD: James Moses Measurements Intervals [place] Rate: 75 P: 62 NV: 170 QRS: 58 QRSD: 88 T: -8 QT: 385 QTc: 430 Interpretive Statements Sinus rhythm Borderline T abnormalities, inferior leads Borderline ST elevation, anterolateral leads Electronically Signed On 02-24-2024 13:03:58 PST by James Moses Please click the below link to view image of tracing.
[2024-02-18] MEDS: guaiFENesin-DM 100/10mg/5ml SYR PO PRN (12:54)
[2024-02-18] MEDS ORDERED: DOXY-286 PO (14:48)
--- NOTE | 2024-02-18 14:48 | DVHDS2 ---
Discharge Summary Date of Admission Feb 16, 2024 at 15:54 Labs/Diagnostic Data: Laboratory Results Test 02/18/24 05:22 02/18/24 03:36 02/17/24 21:20 02/17/24 04:57 SARS-CoV-2 Antigen (Rapid) Negative (NEGATIVE) Influenza Type A Antigen Negative (Negative) Influenza Type B Antigen Negative (Negative) White Blood Count 7.0 10^3/uL (4.4-10.8) Red Blood Count 4.89 10^6/uL (4.5-5.90) Hemoglobin 16.6 g/dL (13.5-17.5) Hematocrit 47.7 % (41.0-53.0) Mean Corpuscular Volume 97.5 fL (80.0-100.0) Mean Corpuscular Hemoglobin 33.8 pg (28.0-32.0) Mean Corpuscular Hemoglobin Concent 34.7 g/dL (32.0-36.0) Red Cell Distribution Width 13.6 % (11.8-14.3) Platelet Count 272 10^3/uL (140-450) Mean Platelet Volume 7.4 fL (6.9-10.8) Neutrophils (%) (Auto) 72.9 % (37.0-80.0) Lymphocytes (%) (Auto) 18.2 % (10.0-50.0) Monocytes (%) (Auto) 7.7 % (0.0-12.0) Eosinophils (%) (Auto) 1.0 % (0.0-7.0) Basophils (%) (Auto) 0.2 % (0.0-2.0) Neutrophils # (Auto) 5.1 10 ^3/uL (1.6-8.6) Lymphocytes # (Auto) 1.3 10 ^3/uL (0.4-5.4) Monocytes # (Auto) 0.5 10 ^3/uL (0-1.3) Eosinophils # (Auto) 0.1 10 ^3/uL (0-0.8) Basophils # (Auto) 0 10 ^3/uL (0-0.2) Nucleated Red Blood Cells 0.0 % Sodium Level 141 mmol/L (136-145) Potassium Level 3.4 mmol/L (3.5-5.1) Chloride Level 102 mmol/L (98-107) Carbon Dioxide Level 26 mmol/L (20-31) Anion Gap 13 (5-15) Blood Urea Nitrogen 20 mg/dL (9-23) Creatinine 1.30 mg/dL (0.700-1.30) Glomerular Filtration Rate Calc 67 mL/min (>90) BUN/Creatinine Ratio 15.4 (10.0-20.0) Serum Glucose 109 mg/dL (74-106) Calcium Level 10.5 mg/dL (8.7-10.4) Total Bilirubin 1.0 mg/dL (0.2-1.0) Aspartate Amino Transferase (AST) 27 U/L (13-40) Alanine Aminotransferase (ALT) 55 U/L (7-40) Alkaline Phosphatase 92 U/L (46-116) Total Protein 8.0 g/dL (5.7-8.2) Albumin 5.3 g/dL (3.2-4.8) Test 02/16/24 17:43 02/16/24 10:34 Troponin I High Sensitivity < 3 ng/L (</=54) Urine Color Light-yellow (Yellow) Urine Clarity Clear (Clear) Urine pH 5.5 (5.0-9.0) Urine Specific [place] 1.015 (1.001-1.035) Urine Protein Negative (Negative) Urine Ketones Negative (Negative) Urine Blood Negative /uL (Negative) Urine Nitrite Negative (Negative) Urine Bilirubin Negative (Negative) Urine Urobilinogen Normal mg/dL (Negative) Urine Leukocyte Esterase Negative /uL (Negative) Urine RBC 1 /hpf (0 - 3) Urine WBC None seen /hpf (0 - 3) Urine Squamous Epithelial Cells None seen /hpf (<5) Urine Bacteria None seen /hpf (None Seen) Urine Mucus Few (None Seen) Urine Glucose Normal mg/dL (Normal) Other Laboratory Tests 02/17/24 04:57 Discharge Statement: "Patient was advised to return to the ER or call 911 if any headaches, dizziness, shortness of breath, chest pain, abdominal pain, bleeding, fevers, or worsening of medical condition. Patient was counseled about treatment plan, medications, possible side effects, patientverbalized understanding. All questions were answered to the best of my ability. This discharge took greater then 30 minutes in planning, reviewing documentation, counseling the patient, and discussing with other team members." ASSESSMENT ASSESSMENT Assessment MCKENNA ROTH NP Feb 18, 2024 14:48
--- NOTE | 2024-02-18 15:11 | DVHPN2 ---
Progress Note - Dictate Date Seen: Feb 18, 2024 Medical Necessity Reason Pt with a Central, PICC or Fol: No vital signs Vital Sign Date Time Temp Pulse Resp B/P (MAP) Pulse Ox O2 Delivery O2 Flow Rate FiO2 02/18/24 12:37 97.6 70 17 125/82 (96) 94 97.6 02/18/24 09:42 Room Air* 0 21 Total Intake and Output 02/17/24 02/17/24 02/18/24 15:00 23:00 07:00 Intake Total 0 ml 250 ml Balance 0 ml 250 ml medications Current Medications Medications Dose Ordered Sig/Yesenia Route Start Time Stop Time Status Last Admin Dose Admin Ondansetron HCl 4 mg Q4HP PRN IV 02/16/24 16:00 02/17/24 13:45 4 MG Nitroglycerin 0.4 mg Q5MINP PRN SL 02/16/24 16:00 02/17/24 19:52 0.4 MG Doxycycline Hyclate 250 ml @ 125 mls/hr Q12H IV 02/17/24 15:00 02/18/24 02:28 125 MLS/HR Diphenoxylate HCl/ Atropine 2.5 mg Q6HP PRN PO 02/17/24 15:00 Albuterol 2.5 mg Q6HPRN PRN NEB 02/17/24 15:00 02/18/24 00:21 2.5 MG Guaifenesin/ Dextromethorphan 10 ml Q4HP PRN PO 02/17/24 15:00 02/18/24 12:54 10 ML Amiodarone HCl 200 mg HS PO 02/17/24 22:00 02/17/24 21:45 200 MG Amlodipine Besylate 10 mg DAILY PO 02/18/24 10:00 02/18/24 09:21 10 MG Apixaban 5 mg BID PO 02/17/24 22:00 02/18/24 09:22 5 MG Metoprolol Tartrate 50 mg BID PO 02/17/24 22:00 02/18/24 09:21 50 MG Sucralfate 1 gm QID PO 02/17/24 18:00 02/18/24 12:54 1 GM objective General Appearance: alert, no distress HEENT: EOMI, PERRLA, normal external inspect of ears, no icterus, no nasal drainage Neck: no carotid bruit, no jugular venous distention (JVD), no lymphadenopathy Chest: normal thorax Respiratory: clear to auscultation, normal air movement Cardiovascular: regular rate and rhythm, no diastolic murmur, no jugular venous distention (JVD), no rub, no systolic murmur Abdominal: soft, no hepatomegaly, no mass, no splenomegaly, no tenderness Genitourinary: grossly normal external Musculoskeletal: no joint tenderness, no swelling Extremities: normal pulses, no calf tenderness, no clubbing, no cyanosis, no edema Skin: no bruising, no jaundice, no rash Neurological: alert, No focal deficit laboratory and microbiology Laboratory Tests 02/17/24 04:57 Test 02/17/24 04:57 Range/Units Serum Glucose 109 H 74-106 mg/dL Problem List 1. Chest pain Monitor, cardiology consult, trend troponin, monitor EKG 2. Bronchitis Monitor, IV abx, Med-Neb tx 3. Diarrhea Monitor 4. Benign essential HTN Monitor, medications Assessment/Plan Patient is awake and alert. Objective Patient looks much better than yesterday. Patient states he still feels sick and is still having periodic cough. Patient has been taking his cough medicine. Patient was seen by cardiology. Chest pain was atypical and most likely related to frequent coughing and recent bronchitis. Patient was having diarrhea. C. difficile is pending. Influenza A & B and COVID swab was negative. Plan Continue current treatment. Continue IV doxycycline. Patient is responding well. Patient states his pharmacy will not be open till Wednesday. Possible discharge in 1 to 2 days. Plan discussed with: Patient, Other MCKENNA ROTH NP Feb 18, 2024 15:11
[2024-02-19] VITALS (9 sets, daily range): BP systolic 109–132; BP diastolic 69–82; PULSE 63–85; RESP 16–21; TEMP 37; O2SAT 95–98
--- NOTE | 2024-02-19 08:25 | DVHDS2 ---
Discharge Summary Date of Admission Feb 16, 2024 at 15:54 Date of Discharge: Feb 19, 2024 Labs/Diagnostic Data: Laboratory Results Test 02/18/24 05:22 02/18/24 03:36 02/17/24 21:20 02/17/24 04:57 SARS-CoV-2 Antigen (Rapid) Negative (NEGATIVE) Influenza Type A Antigen Negative (Negative) Influenza Type B Antigen Negative (Negative) White Blood Count 7.0 10^3/uL (4.4-10.8) Red Blood Count 4.89 10^6/uL (4.5-5.90) Hemoglobin 16.6 g/dL (13.5-17.5) Hematocrit 47.7 % (41.0-53.0) Mean Corpuscular Volume 97.5 fL (80.0-100.0) Mean Corpuscular Hemoglobin 33.8 pg (28.0-32.0) Mean Corpuscular Hemoglobin Concent 34.7 g/dL (32.0-36.0) Red Cell Distribution Width 13.6 % (11.8-14.3) Platelet Count 272 10^3/uL (140-450) Mean Platelet Volume 7.4 fL (6.9-10.8) Neutrophils (%) (Auto) 72.9 % (37.0-80.0) Lymphocytes (%) (Auto) 18.2 % (10.0-50.0) Monocytes (%) (Auto) 7.7 % (0.0-12.0) Eosinophils (%) (Auto) 1.0 % (0.0-7.0) Basophils (%) (Auto) 0.2 % (0.0-2.0) Neutrophils # (Auto) 5.1 10 ^3/uL (1.6-8.6) Lymphocytes # (Auto) 1.3 10 ^3/uL (0.4-5.4) Monocytes # (Auto) 0.5 10 ^3/uL (0-1.3) Eosinophils # (Auto) 0.1 10 ^3/uL (0-0.8) Basophils # (Auto) 0 10 ^3/uL (0-0.2) Nucleated Red Blood Cells 0.0 % Sodium Level 141 mmol/L (136-145) Potassium Level 3.4 mmol/L (3.5-5.1) Chloride Level 102 mmol/L (98-107) Carbon Dioxide Level 26 mmol/L (20-31) Anion Gap 13 (5-15) Blood Urea Nitrogen 20 mg/dL (9-23) Creatinine 1.30 mg/dL (0.700-1.30) Glomerular Filtration Rate Calc 67 mL/min (>90) BUN/Creatinine Ratio 15.4 (10.0-20.0) Serum Glucose 109 mg/dL (74-106) Calcium Level 10.5 mg/dL (8.7-10.4) Total Bilirubin 1.0 mg/dL (0.2-1.0) Aspartate Amino Transferase (AST) 27 U/L (13-40) Alanine Aminotransferase (ALT) 55 U/L (7-40) Alkaline Phosphatase 92 U/L (46-116) Total Protein 8.0 g/dL (5.7-8.2) Albumin 5.3 g/dL (3.2-4.8) Test 02/16/24 17:43 02/16/24 10:34 Troponin I High Sensitivity < 3 ng/L (</=54) Urine Color Light-yellow (Yellow) Urine Clarity Clear (Clear) Urine pH 5.5 (5.0-9.0) Urine Specific [place] 1.015 (1.001-1.035) Urine Protein Negative (Negative) Urine Ketones Negative (Negative) Urine Blood Negative /uL (Negative) Urine Nitrite Negative (Negative) Urine Bilirubin Negative (Negative) Urine Urobilinogen Normal mg/dL (Negative) Urine Leukocyte Esterase Negative /uL (Negative) Urine RBC 1 /hpf (0 - 3) Urine WBC None seen /hpf (0 - 3) Urine Squamous Epithelial Cells None seen /hpf (<5) Urine Bacteria None seen /hpf (None Seen) Urine Mucus Few (None Seen) Urine Glucose Normal mg/dL (Normal) Other Laboratory Tests 02/17/24 04:57 Brief Hx & Hospital Course: 48 y/o male patient presents with complaint of chest pain. Patient states he has had sharp chest pain across his chest for the past few days. Patient also complains of cough. Patient states he was recently diagnosed with bronchitis and was prescribed antibiotics, which have been causing diarrhea. While in the emergency department the patient was evaluated by the provider, As per provider: Labs, vital signs, and imagining monitored. Patient was admitted for chest pain. Patient was recently discharged from [facility] for bronchitis. Patient was seen by cardiology and he was cleared for discharge at that time. Patient again was seen by cardiology. Chest pain is atypical and not related to cardiac ischemia. No further cardiac workup was indicated. Patient was cleared to be discharged home by cardiology. Patient still complained of persistent pain. Troponin levels were negative. Chest x-ray had no acute findings. Patient has been afebrile. Patient did have reddened eyes. COVID-19 and influenza swabs were negative. Patient states he did improve with IV doxycycline and that his cough also improved. Patient was discharged home on oral doxycycline. He was instructed to follow up with his PCP in one week. Patient also stated that his diarrhea had improved significantly. I did instruct him to stop taking azithromycin. The patient received proper medical treatment and medications. Vital signs, Imaging and Laboratory Work was monitored. All consults recommendations were followed as provided. There were no complaints or new complaints upon discharge, all questions and concerns were answered. Patient was advised to return to the ER or call 911 if any headaches, dizziness, shortness of breath, chest pain, bleeding, fevers, or worsening of medical condition. Patient/Family was counseled about treatment plan, medications, possible side effects, patientverbalized understanding. All questions were answered to the best of my ability. The patient symptoms improved and they are okay to be DC. Condition at Discharge: Good Final Diagnosis/Problems List Bronchitis Discharge Disposition: Home Discharge Instruct/Medications Diet: Cardiac 2g Na,low cholest Activity: No Restrictions, As Tolerated Follow Up/Referral: pcp 1 week Discharge Statement: "Patient was advised to return to the ER or call 911 if any headaches, dizziness, shortness of breath, chest pain, abdominal pain, bleeding, fevers, or worsening of medical condition. Patient was counseled about treatment plan, medications, possible side effects, patientverbalized understanding. All questions were answered to the best of my ability. This discharge took greater then 30 minutes in planning, reviewing documentation, counseling the patient, and discussing with other team members." ASSESSMENT ASSESSMENT Assessment Bronchitis MCKENNA ROTH NP Feb 19, 2024 08:25
[2024-02-21 08:52] LABS: Hepatitis B Surface Antigen Negative (Negative)
[2024-02-21 09:14] LABS: Hepatitis C Antibody Negative (Negative)
== END 2024-02-19 14:00 | disposition home or self-care (01) | DRG 202 ==
LOC: ER 10:23 → TELE 15:54 → TELE-EAST 02-17 23:05
PROVIDERS: ADMIT Nurse Practitioner; ATTEND Nurse Practitioner
DX: J20.9 Acute bronchitis, unspecified (principal); I47.10 Supraventricular tachycardia, unspecified; E78.5 Hyperlipidemia, unspecified; A08.4 Viral intestinal infection, unspecified; I12.9 Hypertensive chronic kidney disease with stage 1 through stage 4 chronic kidney disease, or unspecified chronic kidney disease; I34.1 Nonrheumatic mitral (valve) prolapse; I48.0 Paroxysmal atrial fibrillation; J45.909 Unspecified asthma, uncomplicated; Z20.822 Contact with and (suspected) exposure to COVID-19; N18.9 Chronic kidney disease, unspecified; N40.0 Benign prostatic hyperplasia without lower urinary tract symptoms; F32.A Depression, unspecified; E11.22 Type 2 diabetes mellitus with diabetic chronic kidney disease; K21.9 Gastro-esophageal reflux disease without esophagitis; G43.909 Migraine, unspecified, not intractable, without status migrainosus; Z88.8 Allergy status to other drugs, medicaments and biological substances; Z88.6 Allergy status to analgesic agent; Z88.5 Allergy status to narcotic agent; Z88.0 Allergy status to penicillin; Z83.3 Family history of diabetes mellitus; Z79.899 Other long term (current) drug therapy; Z79.01 Long term (current) use of anticoagulants; Z87.891 Personal history of nicotine dependence; E55.9 Vitamin D deficiency, unspecified
CPT/HCPCS: 36415; 71046; 80053; 81001; 84484; 85025; 86803; 87081; 87340; 87426; 87493; 87804; 93005; 94640; 96374; 99291; G0378; J2405; J3490

== ENCOUNTER 2024-03-24 16:59 | Inpatient (IN) | payer OTHER ==
[~2024-03-24] VITALS: Ht 175.3 cm; Wt 86.0 kg
[~2024-03-24 16:59] MED LIST changes: -AZIT500T66 PO; +DOXY-286 PO
[2024-03-24 17:30] LABS: Basophils # (auto) 0 10 ^3/uL (0-0.2); Basophils % (auto) 0.5 % (0.0-2.0); Eosinophils # (auto) 0.1 10 ^3/uL (0-0.8); Eosinophils % (auto) 2.3 % (0.0-7.0); Hematocrit 42.1 % (41.0-53.0); Hemoglobin 14.9 g/dL (13.5-17.5); Lymphocytes # (auto) 1.2 10 ^3/uL (0.4-5.4); Lymphocytes % (auto) 24.6 % (10.0-50.0); Mean Corpuscular Hemoglobin 33.7 pg (28.0-32.0); Mean Corpuscular Hgb Conc. 35.4 g/dL (32.0-36.0); Mean Corpuscular Volume 95.1 fL (80.0-100.0); Monocytes # (auto) 0.6 10 ^3/uL (0-1.3); Monocytes % (auto) 11.6 % (0.0-12.0); Nucleated Red Blood Cells % 0.1 %; Platelet Count (auto) 262 10^3/uL (140-450); Red Blood Cells 4.42 10^6/uL (4.5-5.90); Red Cell Distribution Width 14.6 % (11.8-14.3)
[2024-03-24 17:45] LABS: Alanine Aminotransferase 40 U/L (7-40); Alkaline Phosphatase 89 U/L (46-116); Anion Gap 7 (5-15); Aspartate Aminotransferase 25 U/L (13-40); BUN/Creatinine Ratio 14.5 (10.0-20.0); Bilirubin, Total 0.7 mg/dL (0.2-1.0); Blood Urea Nitrogen 20 mg/dL (9-23); Calcium 10.4 mg/dL (8.7-10.4); Carbon Dioxide 29 mmol/L (20-31); Chloride 103 mmol/L (98-107); Glucose 96 mg/dL (74-106); Potassium 3.6 mmol/L (3.5-5.1); Sodium 139 mmol/L (136-145); Total Protein 7.2 g/dL (5.7-8.2)
--- NOTE | 2024-03-24 17:46 | DVH ---
EXAMINATION: AP portable chest radiograph CLINICAL HISTORY: chest pain COMPARISON: XY CHEST PORTABLE on DOS: 02/11/24, XY CHEST PORTABLE on DOS: 11/12/23, XY CHEST PORTABLE on DOS: 10/12/23. TECHNIQUE: Single-view chest FINDINGS: No infiltrates or effusions. Possible left-sided pneumothorax estimated at 30-40%. IMPRESSION: 1. Questionable left pneumothorax recommend CT of the chest noncontrast for further evaluation. HS:Y
[2024-03-24 17:48] LABS: Albumin 4.9 g/dL (3.2-4.8)
--- NOTE | 2024-03-24 18:24 | ED.PDOC ---
HPI Comments HPI: 48y M who presents to the ED for chief complaint of chest pain. Pt has the following ED course: - pt has been having chest pain for the past 2 days - pt states the pain is substernal, constant, sharp in nature, with exacerbation of pain while ambulating and at night - pt states he had cardiology appt 1 years prior and did a pharmacologic stress test which came back normal - pt otherwise denies shortness of breath, diaphoresis, palpitations, or any other symptoms at this time - pt noted to be on eliquis VITALS: Temp: 97.4 F RR: 18 02 sat : 97 % on room air HR: 74 BP: 133/79 PMH: hypertension, AFIB, hyperlipidemia, asthma PSH: denies Social history: denies tobacco use, denies ETOH use, denies drug use Medications: labetalol, eliquis Allergies: Tylenol, amoxicillin, codeine, Motrin, ibuprofen, penicillins, tramadol, morphine walnuts Joshi, HPI: Poor Historian. 48-year-old male presents to emergency department for evaluation of midsternal and right-sided chest pain that started two days ago. Pain is intermittent. No particular alleviating or precipitating factors. Patient takes his blood pressure medication labetalol at nighttime. He is also on Eliquis. Most recent cardiac stress test with a proximally a year ago that was normal according to the patient. Past Medcial History: Past Surgical History: REVIEW OF SYSTEMS: CONSTITUTIONAL: Denies acute: fever, diaphoresis, chills, generalized weakness. HEAD: Denies acute: headache, photophobia Eyes: Denies acute: Double vision, vision loss, eye pain, eye discharge. EARS: Denies acute: tinnitus, hearing loss, ear discharge, ear pain, THROAT: Denies acute: sore throat, swelling, difficulty swallowing , pain with swallowing, change in voice. NECK: Denies acute: neck pain, neck swelling, stiff neck. HEART: Denies acute : palpitations, LUNGS: Denies acute: SOB, wheezing, cough, hemoptysis ABDOMEN: Denies acute: abdominal pain, Nausea, Vomiting, diarrhea, melena , hematemesis, hematochezia SKIN: Denies acute: rash, redness, lesions, itchiness. EXTREMITIES: Denies acute: calf pain, numbness, tingling, weakness, denies pain in extremity. Denies acute: Low back pain. Neuro: Denies acute: focal neurological deficit, motor or sensory focal neurological deficit, tremors, seizure like activity, confusion, dizziness, change in mental status, loss of bowel or bladder function, cauda equina like symptoms. : Denies acute: dysuria, hematuria, flank pain, increase in urinary frequency. PSYCH: Denies acute: hallucination, suicidal ideation, homicidal ideation. PHYSICAL EXAM: General: no acute distress, awake and alert. Head: normocephalic, atraumatic. Neck: supple, trachea is midline, no swelling. Throat: Normal phonation. Eyes:, no erythema, no purulent discharge, no proptosis, no icterus. Heart: regular rate, regular rhythm, no significant murmur appreciated. Lungs: no apparent respiratory distress, Able to speak in full sentences. No wheezing, no rhonchi, no crackles. No stridors Clear to auscultation bilaterally. Abdomen: non tender to palpation, non distended, soft, no guarding, no rebound, + bowel sounds. Neuro: Awake, Alert, oriented to name, self, situation, follows commands GCS=15. Speech is normal. Skin: no petechia, no purpura, no cyanosis, non-pale, not jaundice. Lower extremities: --1/4- Pitting edema no deformity, no focal swelling, no calf TTP. Makes eye contact. moves all four extremities. Face: no jen facial droop Ambulating in the ED independently. Chief Complaint: Chest Pain Time Seen by MD: 18:30 Primary Care Provider: NONE Reviewed Notes: Medications, Allergies Allergies: Coded Allergies: Acetaminophen (Verified Allergy, Unknown, 03/02/23) Amoxicillin (Verified Allergy, Unknown, 03/02/23) Codeine (Verified Allergy, Unknown, 03/02/23) Hydrocodone (Verified Allergy, Unknown, 03/24/24) Ibuprofen (Verified Allergy, Unknown, 03/02/23) Morphine (Verified Allergy, Unknown, 03/02/23) Penicillins (Verified Allergy, Unknown, 03/02/23) Statins (Verified Allergy, Unknown, 03/02/23) Tramadol (Verified Allergy, Unknown, 03/02/23) Uncoded Allergies: WALNUTS (Allergy, Unknown, 03/02/23) Home Meds Active Scripts Doxycycline Hyclate (DOXYCYCLINE HYCLATE) 100 Mg Tab, 1 TAB PO BID, #14 TAB Prov:MCKENNA ROTH NP 02/18/24 Promethazine-Dm (Promethazine Dm 6.25-15 mg/5Ml) 1 Ethel Ethel, 5 ML PO TID, #150 ML Prov:CHRISSIE SUH 02/11/24 Sucralfate (Sucralfate) 1 Gm Tab, 1 TAB PO QID for 30 Days, #120 TAB Prov:MCKENNA ROTH NP 11/15/23 Pantoprazole Sodium Sesquihydr (Pantoprazole Sodium) 40 Mg Tab, 1 TAB PO BID for 30 Days, #60 TAB Prov:MCKENNA ROTH NP 11/15/23 Sennosides-Docusate Sodium (Colace 2-in-1 8.6-50 mg) 1 Tab Tab, 1 TAB PO BID, #20 TAB 0 Refills Prov:VINCE TORIBIO MD 11/12/23 Polyethylene Glycol 3350 (Miralax) 17 Gm Pow, 17 GM PO DAILY, #100 POW 0 Refills Prov:VINCE TORIBIO MD 11/12/23 Pantoprazole Sodium Sesquihydr (Protonix) 40 Mg Tab, 40 MG PO BID for 30 Days, #60 TAB Prov:MCKENNA ROTH NP 10/16/23 Amiodarone HCl (Amiodarone HCl) 200 Mg Tab, 200 MG PO HS for 30 Days, #30 TAB Prov:MCKENNA ROTH NP 10/16/23 Reported Medications Amlodipine Besylate (Amlodipine Besylate) 10 Mg Tab, 1 TAB PO DAILY 11/14/23 Magnesium Oxide (Magnesium Oxide) 400 Mg Tab, 1 TAB PO DAILY 11/14/23 Dicyclomine Hcl (BENTYL CAPSULE) 10 Mg Cp, PO 11/14/23 Triamcinolone Acetonide (Triamcinolone Acetonide) 0.1 % Pst, 1 APPLIC TOP BID, APPLIC both arms 10/12/23 Albuterol Sulfate (VENTOLIN MDI) 90 Mcg Ih, 90 MCG IN Q4HP, INH 10/12/23 Apixaban Base (ELIQUIS) 5 Mg Tab, 5 MG PO BID, TAB 10/12/23 Metoprolol Tartrate (Metoprolol Tartrate) 50 Mg Tab, 50 MG PO BID, TAB 10/12/23 Meloxicam (Meloxicam) 15 Mg Tab, 1 TAB PO DAILY@BREAKFAST, #30 TAB 2 Refills 10/12/23 Amlodipine Besylate (Amlodipine Besylate) 5 Mg Tab, 10 MG PO DAILY, MG 10/12/23 Evolocumab (Repatha) 140 Mg/Ml Inj, 140 MG SC, INJ 10/12/23 Hctz (Hydrochlorothiazide) 25 Mg Tab, 25 MG PO DAILY, TAB 10/12/23 Dicyclomine Hcl (Dicyclomine Hcl) 20 Mg Tab, 40 MG PO TID, MG 10/12/23 Cholecalciferol (VITAMIN D3) 2,000 Unit Tab, 1 TAB PO DAILY, #30 TAB 5 Refills 10/12/23 Pravastatin Sodium (PRAVACHOL TABLET) 20 Mg Tb, 2 TAB PO DAILY, #30 TAB 5 Refil ls 10/12/23 Diphenhydramine Hcl (Banophen) 25 Mg Cap, 25 MG PO BID, CAP 10/12/23 Information Source: Patient Mode of Arrival: Ambulatory Past Medical History PAST MEDICAL HISTORY: AFIB, Asthma, HTN Surgical History: Denies all surgeries Family History Family History: Reviewed,noncontributory to illness, No family hx of Cancer, No family hx of DM, No family hx of Heart tim, No family hx of HTN, No family hx ofKidney tim, No family hx of Liver tim, No family hx of Lung tim, No family hx of Stroke Social History Smoker: Non-Smoker Alcohol: Denies ETOH Use Drugs: Denies Drug Use Lives In: Home Was a procedure done? Was a procedure done?: No X-Ray, Labs, Meds, VS Vital Signs Date Time Temp Pulse Resp B/P (MAP) Pulse Ox O2 Delivery O2 Flow Rate FiO2 03/24/24 19:56 72 03/24/24 18:12 77 03/24/24 17:06 77 03/24/24 17:04 97.4 74 18 133/79 (97) 97 Lab Test 03/24/24 18:04 03/24/24 17:11 Range/Units Troponin I High Sensitivity 3 L 3 L </=54 ng/L White Blood Count 5.0 4.4-10.8 10^3/uL Red Blood Count 4.42 L 4.5-5.90 10^6/uL Hemoglobin 14.9 13.5-17.5 g/dL Hematocrit 42.1 41.0-53.0 % Mean Corpuscular Volume 95.1 80.0-100.0 fL Mean Corpuscular Hemoglobin 33.7 H 28.0-32.0 pg Mean Corpuscular Hemoglobin Concent 35.4 32.0-36.0 g/dL Red Cell Distribution Width 14.6 H 11.8-14.3 % Platelet Count 262 140-450 10^3/uL Mean Platelet Volume 7.4 6.9-10.8 fL Neutrophils (%) (Auto) 61.0 37.0-80.0 % Lymphocytes (%) (Auto) 24.6 10.0-50.0 % Monocytes (%) (Auto) 11.6 0.0-12.0 % Eosinophils (%) (Auto) 2.3 0.0-7.0 % Basophils (%) (Auto) 0.5 0.0-2.0 % Neutrophils # (Auto) 3.0 1.6-8.6 10 ^3/uL Lymphocytes # (Auto) 1.2 0.4-5.4 10 ^3/uL Monocytes # (Auto) 0.6 0-1.3 10 ^3/uL Eosinophils # (Auto) 0.1 0-0.8 10 ^3/uL Basophils # (Auto) 0 0-0.2 10 ^3/uL Nucleated Red Blood Cells 0.1 % D-Dimer, Quantitative 0.19 0.0-0.49 mg/L FEU Sodium Level 139 136-145 mmol/L Potassium Level 3.6 3.5-5.1 mmol/L Chloride Level 103 98-107 mmol/L Carbon Dioxide Level 29 20-31 mmol/L Anion Gap 7 5-15 Blood Urea Nitrogen 20 9-23 mg/dL Creatinine 1.38 H 0.700-1.30 mg/dL Glomerular Filtration Rate Calc 63 >90 mL/min BUN/Creatinine Ratio 14.5 10.0-20.0 Serum Glucose 96 74-106 mg/dL Calcium Level 10.4 8.7-10.4 mg/dL Magnesium Level 2.0 1.6-2.6 mg/dL Total Bilirubin 0.7 0.2-1.0 mg/dL Aspartate Amino Transferase (AST) 25 13-40 U/L Alanine Aminotransferase (ALT) 40 7-40 U/L Alkaline Phosphatase 89 46-116 U/L Total Protein 7.2 5.7-8.2 g/dL Albumin 4.9 H 3.2-4.8 g/dL [address] [address] Ph: [phone] DIAGNOSTIC IMAGING Diagnostic Imaging Report : [id number] Signed PATIENT: LUIS MIGUEL JOSHI ACCT: [id number] UNIT: [id number] : 1975 LOC: ER ROOM / BED: / AGE / SEX: 48 / M ADM STATUS: REG ER SERVICE 1704 ORDERING PHYSICIAN: NARESH METZGER DO PROCEDURE(s): CXRP - CHEST PORTABLE REASON: chest pain ORDER NUMBER(s): [id number], ACCESSION NUMBER(s): [id number] EXAMINATION: AP portable chest radiograph CLINICAL HISTORY: chest pain COMPARISON: XY CHEST PORTABLE on DOS: 02/11/24, XY CHEST PORTABLE on DOS: 11/12/23, XY CHEST PORTABLE on DOS: 10/12/23. TECHNIQUE: Single-view chest FINDINGS: No infiltrates or effusions. Possible left-sided pneumothorax estimated at 30-40%. IMPRESSION: 1. Questionable left pneumothorax recommend CT of the chest noncontrast for further evaluation. HS:Y ATED BY: KELY NOVA Jr., DO DICTATED DATE/TIME: 03/24/241742 SIGNED BY: KELY NOVA Jr., SIGNED DATE/TIME: 03/24/241742 CC: [address] [address] Ph: [phone] DIAGNOSTIC IMAGING Diagnostic Imaging Report : [id number] Signed PATIENT: LUIS MIGUEL JOSHI ACCT: [id number] UNIT: [id number] : 1975 LOC: ER ROOM / BED: / AGE / SEX: 48 / M ADM STATUS: REG ER SERVICE [id number] ORDERING PHYSICIAN: NARESH METZGER DO PROCEDURE(s): CX2CT - CHEST WITHOUT CONTRAST REASON: cp ORDER NUMBER(s): [id number], ACCESSION NUMBER(s): [id number] Procedure: CT CHEST WITHOUT CONTRAST Reason for study/Clinical History: cp Comparison Study: None available at time of dictation. Exam Date: 03/24/2024 06:32 PM TECHNIQUE: Multidetector CT of the chest was performed from the lung apices to the upper abdomen without the use of intravenous contract. Axial, coronal and sagittal multiplanar reformats were performed. Radiation Dose Information: CT Dose: CTDI volume is 9.18 mGy. Dose-length product is 339.84 mGy*cm The dose indicators for CT are the volume Computed Tomography (CT) Dose Index (CTDIvol) and the Dose Length Product (DLP), and are measured in units of mGy and mGy-cm, respectively. These indicators are not patient dose, but values generated from the CT scanner acquisition factors. The report includes radiation exposure data for exposures received during this examination. FINDINGS: Lower neck: Normal thyroid. Lungs: No focal consolidation, pleural effusion or pneumothorax. Heart/Vascular Structures: Normal heart size. No pericardial effusion. Lymph Nodes: No adenopathy Pleura: No pleural effusion or significant pneumothorax. Musculoskeletal: No acute osseous abnormality. Soft tissues: Normal. Upper abdomen: Limited portions of the upper abdomen are unremarkable. IMPRESSION: 1. No acute intrathoracic abnormality. 2. No infiltrates no effusions. 3. No pneumothorax. HS:Y Radiation optimization: All CT scans at this facility use at least one of these dose optimization techniques: automated exposure control mA and/or kV adjustment per patient size (includes targeted exams where dose is matched to clinical indication) or iterative reconstruction. ATED BY: KELY NOVA Jr., DO DICTATED DATE/TIME: 03/24/241852 SIGNED BY: KELY NOVA Jr., SIGNED DATE/TIME: 03/24/241852 CC: Patient Education/Counseling: Diagnosis, Treatment Family Education/Counseling: No Family Present Comments MDM: Patient presented with the above HPI.----- chest pain---- workup was initiated. patient was found with the above mentioned diagnosis. the following medications were ordered: 0.4 nitro, 325 aspirin, the following tests were ordered: troponin x3, EKG x 3, chest x-ray, D- dimer, drug screen, CBC, CMP, CT chest without contrast, UA, magnesium, Patient ED course and VS have been stabilized. Patient has been reassessed in the ED and remained in a stable condition. Patient has been observed in the ED adequate length of time to insure improv ement/stability. Escalation of care considered: Consideration of escalation to observation or admission. patient was ADMITTED to the medicine team for further evaluation and treatment of their presentation. All the reports of any imaging studies that were ordered by myself were reviewed by myself. Departure 1 Departure Time of Disposition: 18:36 Impression: Primary Impression: Chest pain Disposition: ADMITTED INPATIENT Condition: Guarded Discharged With: Self Heart Score Heart Score: Heart Score Response (Comments) Value History Slightly Suspicious 0 EKG Normal 0 Age 45-64 1 Risk Factors >3 or Hx ASHD 2 Troponin Normal limit 0 Total 3 I personally scribed for NARESH METZGER DO ([email or web address]) on 03/24/24 at 18:24. Electronically submitted by José Mims ([email or web address]). I personally scribed for NARESH METZGER DO ([email or web address]) on 03/24/24 at 18:32. Electronically submitted by José Mims ([email or web address]). I personally scribed for NARESH METZGER DO ([email or web address]) on 03/24/24 at 21:24. Electronically submitted by José Mims ([email or web address]). NARESH METZGER DO Mar 24, 2024 18:24
--- NOTE | 2024-03-24 18:55 | DVH ---
Procedure: CT CHEST WITHOUT CONTRAST Reason for study/Clinical History: cp Comparison Study: None available at time of dictation. Exam Date: 03/24/2024 06:32 PM TECHNIQUE: Multidetector CT of the chest was performed from the lung apices to the upper abdomen with out the use of intravenous contract. Axial, coronal and sagittal multiplanar reformats were performed . Radiation Dose Information: CT Dose: CTDI volume is 9.18 mGy. Dose-length product is 339.84 mGy*cm The dose indicators for CT are the volume Computed Tomography (CT) Dose Index (CTDIvol) and the Dose Length Product (DLP), and are measured in units of mGy and mGy-cm, respectively. These indicators are not patient dose, but values generated from the CT scanner acquisition factors. The report includes radiation exposure data for exposures received during this examination. FINDINGS: Lower neck: Normal thyroid. Lungs: No focal consolidation, pleural effusion or pneumothorax. Heart/Vascular Structures: Normal heart size. No pericardial effusion. Lymph Nodes: No adenopathy Pleura: No pleural effusion or significant pneumothorax. Musculoskeletal: No acute osseous abnormality. Soft tissues: Normal. Upper abdomen: Limited portions of the upper abdomen are unremarkable. IMPRESSION: 1. No acute intrathoracic abnormality. 2. No infiltrates no effusions. 3. No pneumothorax. HS:Y Radiation optimization: All CT scans at this facility use at least one of these dose optimization rosenda hniques: automated exposure control mA and/or kV adjustment per patient size (includes targeted exam s where dose is matched to clinical indication) or iterative reconstruction.
[2024-03-24] MEDS ORDERED: MORPHINE SULFATE INJ 2 MG/ml SYRG IV PRN (21:15)
[2024-03-24] MEDS ORDERED: NITROGLYCERIN 0.4 MG SL TAB SL PRN (21:15)
[2024-03-24] MEDS ORDERED: ACETAMINOPHEN 325 MG TAB PO PRN (21:15)
--- NOTE | 2024-03-24 21:17 | DVHHPRES ---
History of Present Illness Resident Creating Document: DOMINGA ESTRADA RESIDENT History of Present Illness This is a 48-year-old male with a history of bronchial asthma, hypertension, hyperlipidemia, atrial fibrillation presented to the ER with a chief complaint of chest pain for 2 days prior to this admission. Patient states that chest pain started 2 days ago which was shooting in nature and located in the central and radiate to the right side of the chest, 10, without any any aggravating factor and partially relieved by taking nitroglycerin associated with cough and whitish sputum. The patient denies fever, chills, shortness of breath, dizziness, diaphoresis, abdominal pain, nausea, vomiting any change in, any change in bowel and bladder habit, sick contact or any recent traveling. Past Medical History Bronchial asthma, hypertension, hyperlipidemia, atrial fibrillation Past Surgical History Back surgery Family History None Past Social History Lives with family Nonsmoker, nonalcoholic and never tried drugs Review of Systems Constitutional: No: Fever, Chills, Sweats, Weakness, Malaise, Other Eyes: No: Pain, Vision change, Conjunctivae inflammation, Eyelid inflammation, Other, Redness ENT: No: Ear pain, Ear discharge, Nose pain, Nose discharge, Nose congestion, Mouth pain, Mouth swelling, Throat pain, Throat swelling, Other Respiratory: Cough, Sputum; No: Dry, Shortness of breath, SOB with excertion, Wheezing, Hemoptysis, Pleuritic Pain, Wheezing, Other Cardiovascular: Chest Pain; No: Palpitations, Orthopnea, Paroxysmal Noc. Dyspnea, Edema, Lt Headedness, Other Gastrointestinal: No: Nausea, Vomiting, Abdominal Pain, Diarrhea, Constipation, Melena, Hematochezia, Other Genitourinary: No Dysuria, No Frequency, No Incontinence, No Hematuria, No Retention, No Other Musculoskeletal: No: other, neck pain, shoulder pain, arm pain, back pain, hand pain, leg pain, foot pain Skin: No: Rash, Lesions, Jaundice, Bruising, Other Neurological: No: Weakness, Numbness, Incoordination, Change in speech, Confusion, Seizures, Other Allergies: Coded Allergies: Acetaminophen (Verified Allergy, Unknown, 03/02/23) Amoxicillin (Verified Allergy, Unknown, 03/02/23) Codeine (Verified Allergy, Unknown, 03/02/23) Hydrocodone (Verified Allergy, Unknown, 03/24/24) Ibuprofen (Verified Allergy, Unknown, 03/02/23) Morphine (Verified Allergy, Unknown, 03/02/23) Penicillins (Verified Allergy, Unknown, 03/02/23) Statins (Verified Allergy, Unknown, 03/02/23) Tramadol (Verified Allergy, Unknown, 03/02/23) Uncoded Allergies: WALNUTS (Allergy, Unknown, 03/02/23) Medications Current Medications Medications Dose Ordered Sig/Yesenia Route Start Time Stop Time Status Last Admin Dose Admin Sodium Chloride 10 ml Q8HR IV 03/24/24 22:00 UNV Ondansetron HCl 4 mg Q4HP PRN IV 03/24/24 21:15 UNV Acetaminophen 650 mg Q6HP PRN PO 03/24/24 21:15 UNV Nitroglycerin 0.4 mg Q5MINP PRN SL 03/24/24 21:15 UNV Morphine Sulfate 2 mg Q30M PRN IV 03/24/24 21:15 UNV Exam Vital Signs Vital Signs Date Time Temp Pulse Resp B/P (MAP) Pulse Ox O2 Delivery O2 Flow Rate FiO2 03/24/24 19:56 72 03/24/24 17:04 97.4 18 133/79 (97) 97 Exam Physical examination: General Appearance: Alert, Oriented X3, Cooperative, No acute distress HEENT: Atraumatic, PERRLA, EOMI, Mucous membrane moist/pink Respiratory: Clear to auscultation, Normal air movement Cardiovascular: Regular rate, Normal S1, Normal S2, No murmurs, no chest wall tenderness Abdominal: Normal bowel sounds, Soft, No tenderness, No hepatospenomegaly, No masses Extremities: No clubbing, No cyanosis, No edema, Normal pulses, No tenderness/swelling Skin: No rashes, No breakdown, No significant lesion Neuro: Normal gait, Normal speech, Strength at 5/5 X4 ext, Normal tone, Sensation intact, grossly intact cranial nerves. Psych/Mental Status: Mental status NL, Mood NL Labs/Xrays Labs Test 03/24/24 18:04 03/24/24 17:11 Range/Units Troponin I High Sensitivity 3 L </=54 ng/L White Blood Count 5.0 4.4-10.8 10^3/uL Red Blood Count 4.42 L 4.5-5.90 10^6/uL Hemoglobin 14.9 13.5-17.5 g/dL Hematocrit 42.1 41.0-53.0 % Mean Corpuscular Volume 95.1 80.0-100.0 fL Mean Corpuscular Hemoglobin 33.7 H 28.0-32.0 pg Mean Corpuscular Hemoglobin Concent 35.4 32.0-36.0 g/dL Red Cell Distribution Width 14.6 H 11.8-14.3 % Platelet Count 262 140-450 10^3/uL Mean Platelet Volume 7.4 6.9-10.8 fL Neutrophils (%) (Auto) 61.0 37.0-80.0 % Lymphocytes (%) (Auto) 24.6 10.0-50.0 % Monocytes (%) (Auto) 11.6 0.0-12.0 % Eosinophils (%) (Auto) 2.3 0.0-7.0 % Basophils (%) (Auto) 0.5 0.0-2.0 % Neutrophils # (Auto) 3.0 1.6-8.6 10 ^3/uL Lymphocytes # (Auto) 1.2 0.4-5.4 10 ^3/uL Monocytes # (Auto) 0.6 0-1.3 10 ^3/uL Eosinophils # (Auto) 0.1 0-0.8 10 ^3/uL Basophils # (Auto) 0 0-0.2 10 ^3/uL Nucleated Red Blood Cells 0.1 % D-Dimer, Quantitative 0.19 0.0-0.49 mg/L FEU Sodium Level 139 136-145 mmol/L Potassium Level 3.6 3.5-5.1 mmol/L Chloride Level 103 98-107 mmol/L Carbon Dioxide Level 29 20-31 mmol/L Anion Gap 7 5-15 Blood Urea Nitrogen 20 9-23 mg/dL Creatinine 1.38 H 0.700-1.30 mg/dL Glomerular Filtration Rate Calc 63 >90 mL/min BUN/Creatinine Ratio 14.5 10.0-20.0 Serum Glucose 96 74-106 mg/dL Calcium Level 10.4 8.7-10.4 mg/dL Magnesium Level 2.0 1.6-2.6 mg/dL Total Bilirubin 0.7 0.2-1.0 mg/dL Aspartate Amino Transferase (AST) 25 13-40 U/L Alanine Aminotransferase (ALT) 40 7-40 U/L Alkaline Phosphatase 89 46-116 U/L Total Protein 7.2 5.7-8.2 g/dL Albumin 4.9 H 3.2-4.8 g/dL Assessment/Plan Assessment/Plan Assessment and plan: # Chest pain rule out ACS - EKG and troponins were unremarkable - CT chest revealed normal study - patient was given loading dose of aspirin - Ordered echo # Chronic atrial fibrillation with secondary hypercoagulable state, currently in sinus rhythm - Continue amiodarone 200 mg p.o. at HS ,Eliquis 5 mg b.i.d. and metoprolol tartrate 50 mg b.i.d. # PUD prophylaxis - Protonix 40 mg p.o. daily # DVT prophylaxis - Patient is on Eliquis Goal of care discussed with the patient for more than 20 minutes full code Plan of treatment discussed with Dr. Oliver Plan discussed with: Patient, Other My Orders Orders - DOMINGA ESTRADA RESIDENT Procedure Category Date Status Time Admit ADMIT 03/24/24 Transmitted 21:13 Code Status CODE 03/24/24 Transmitted 21:13 Sodium Chloride Lock PHA 03/24/24 Logged (Saline Lock Ns) 22:00 Ondansetron Hcl PHA 03/24/24 Logged (Zofran) 21:15 Complete Blood Count LAB 03/25/24 Verified 04:00 Comprehensive LAB 03/25/24 Verified Metabolic Panel 04:00 Cardiac DIET 03/25/24 Transmitted Diet-2gna,Lofat,Lochol Breakfast Echo 2d Mode Cardiac US 03/24/24 Transmitted DOP 21:13 Acetaminophen Tablet PHA 03/24/24 Transmitted (Tylenol Tablet) 21:15 Nitroglycerin PHA 03/24/24 Transmitted Sublingual (Ntrostat 21:15 Morphine Sulfate PHA 03/24/24 Transmitted Injection 21:15 Oxygen By Nasal RT 03/24/24 Transmitted Cannula 21:13 Stat Ekg For Chest BANNER 03/24/24 Transmitted Pain 21:13 Notify Of Changes BANNER 03/24/24 Transmitted From Base 21:13 Radio Division Captain For BANNER 03/24/24 Transmitted 24 Hours 21:13 Emergency Dysrhythmia BANNER 03/24/24 Transmitted Protocol 21:13 Rhythm Strips Once BANNER 03/24/24 Transmitted Every Shift 21:13 Date of Service: Mar 24, 2024 Billing Provider: JOSE ANTONIO OLIVER MD Common Visit Codes: [id number] INP/OBS CARE (HIGH) Secondary Visit Codes: [id number] CARE PLAN 30 MINUTES NATALIEDOMINGA RESIDENT Mar 24, 2024 21:16 JOSE ANTONIO OLIVER MD Mar 25, 2024 10:46
[2024-03-24] MEDS: ASPirin 325 MG TAB PO ONE (23:03)
[2024-03-24] MEDS: AMIODARONE HCL 200 MG TAB PO SCH (23:03)
[2024-03-24] MEDS: PANTOPRAZOLE 40 MG TAB PO SCH (23:03)
[2024-03-24] MEDS: APIXABAN 5 MG TAB PO SCH (23:03)
[2024-03-24] MEDS: NITROGLYCERIN 0.4 MG SL TAB SL ONE (23:06)
[2024-03-25] VITALS (11 sets, daily range): BP systolic 115–140; BP diastolic 41–86; PULSE 59–89; RESP 18–20; TEMP 98.4–98.9; O2SAT 92–99
[2024-03-25] MEDS ORDERED: ALBUTEROL SULF 2.5 MG/0.5ML(0.5%) NEB SOLN NEB PRN (01:00)
[2024-03-25] MEDS ORDERED: IPRATROPIUM BROM 0.5 MG/2.5ML INH SOL NEB PRN (01:00)
[2024-03-25] MEDS: SODIUM CHLOR 0.9% PF (SALINE LOCK) 10ML VIAL/SYR IV SCH (01:18)
[2024-03-25] MEDS: METOPROLOL TARTRATE 50 MG TAB PO SCH (01:18)
[2024-03-25 01:58] LABS: Urine Bacteria None Seen /hpf (None Seen); Urine Blood Negative /uL (Negative); Urine Clarity Clear (Clear); Urine Color Light-Yellow (Yellow); Urine Protein, UAD Negative (Negative); Urine Specific Gravity 1.015 (1.001-1.035); Urine Urobilinogen Normal (Negative); Urine WBC <1 /hpf (0 - 3)
[2024-03-25] MEDS ORDERED: ALBU108A5 INH (01:58)
[2024-03-25] MEDS ORDERED: BECL80AE11 IN (01:58)
[2024-03-25] MEDS ORDERED: TAMS1CAP25 PO (01:58)
[2024-03-25] MEDS ORDERED: LABE200T9 PO (01:58)
[2024-03-25] MEDS ORDERED: DOCU-94 PO (01:58)
[2024-03-25] MEDS ORDERED: HYDR-3682 PO (01:58)
[2024-03-25 02:05] LABS: Protein, Urine 6.6 mg/dL (1-14)
[2024-03-25 02:08] LABS: Creatinine, Urine 108.42 mg/dL (30.0-125.0)
[2024-03-25 02:50] LABS: Amphetamine Screen, Urine Neg (NEGATIVE); Barbiturate Scree,Urine Neg (NEGATIVE); Benzodiazephine Screen, Urine Neg (NEGATIVE); Cannabinoid Screen, Urine Neg (NEGATIVE); Cocaine Screen, Urine Neg (NEGATIVE); Opiate Scree,Urine Neg (NEGATIVE); Phencyclidine Screen, Urine Neg (NEGATIVE)
[2024-03-25] MEDS: ONDANSETRON HCL 4 MG/2 ML VIAL IV PRN (06:03)
[2024-03-25 07:04] LABS: Basophils # (auto) 0 10 ^3/uL (0-0.2); Eosinophils # (auto) 0.1 10 ^3/uL (0-0.8); Eosinophils % (auto) 2.2 % (0.0-7.0); Hemoglobin 14.9 g/dL (13.5-17.5); Mean Corpuscular Volume 95.8 fL (80.0-100.0); Monocytes # (auto) 0.5 10 ^3/uL (0-1.3)
[2024-03-25 07:08] LABS: Basophils % (auto) 0.3 % (0.0-2.0); Lymphocytes # (auto) 0.7 10 ^3/uL (0.4-5.4); Mean Corpuscular Hgb Conc. 35.5 g/dL (32.0-36.0); Monocytes % (auto) 10.2 % (0.0-12.0); Neutrophils # (auto) 3.3 10 ^3/uL (1.6-8.6); Neutrophils % (auto) 71.3 % (37.0-80.0); Nucleated Red Blood Cells % 0.1 %; Platelet Count (auto) 246 10^3/uL (140-450); Red Blood Cells 4.38 10^6/uL (4.5-5.90); Red Cell Distribution Width 14.3 % (11.8-14.3); White Blood Cell 4.7 10^3/uL (4.4-10.8)
[2024-03-25 07:25] LABS: Alanine Aminotransferase 33 U/L (7-40); Alkaline Phosphatase 84 U/L (46-116); Anion Gap 6 (5-15); Blood Urea Nitrogen 16 mg/dL (9-23); Calcium 10.2 mg/dL (8.7-10.4); Carbon Dioxide 30 mmol/L (20-31); Chloride 103 mmol/L (98-107); Potassium 3.6 mmol/L (3.5-5.1); Sodium 139 mmol/L (136-145)
[2024-03-25 07:27] LABS: Albumin 4.6 g/dL (3.2-4.8); Aspartate Aminotransferase 23 U/L (13-40); Bilirubin, Total 0.9 mg/dL (0.2-1.0)
[2024-03-25 07:28] LABS: Glucose 109 mg/dL (74-106)
[2024-03-25] MEDS: PANTOPRAZOLE 40 MG TAB PO SCH (09:30)
[2024-03-25] MEDS: PRAVASTATIN SODIUM 20 MG TAB PO SCH (09:32)
--- NOTE | 2024-03-25 11:11 | DVHPN2 ---
Progress Note Date Seen: Mar 25, 2024 Medical Necessity Reason Pt with a Central, PICC or Fol: No Subjective Review of Systems: CVS:Normal, RESPIRATORY:Normal Objective vital signs Vital Sign Date Time Temp Pulse Resp B/P (MAP) Pulse Ox O2 Delivery O2 Flow Rate FiO2 03/25/24 10:24 96 Room Air 0.0 03/25/24 10:24 21 03/25/24 09:31 76 121/72 03/25/24 09:00 98.6 18 98.6 Total Intake and Output 03/24/24 03/24/24 03/25/24 15:00 23:00 07:00 Intake Total 400 ml Output Total 200 ml Balance 200 ml medications Current Medications Medications Dose Ordered Sig/Yesenia Route Start Time Stop Time Status Last Admin Dose Admin Sodium Chloride 10 ml Q8HR IV 03/24/24 22:00 03/25/24 06:05 10 ML Ondansetron HCl 4 mg Q4HP PRN IV 03/24/24 21:15 03/25/24 06:03 4 MG Acetaminophen 650 mg Q6HP PRN PO 03/24/24 21:15 Nitroglycerin 0.4 mg Q5MINP PRN SL 03/24/24 21:15 Morphine Sulfate 2 mg Q30M PRN IV 03/24/24 21:15 Hold Amiodarone HCl 200 mg HS PO 03/24/24 22:00 03/24/24 23:03 200 MG Apixaban 5 mg BID PO 03/24/24 22:00 03/25/24 09:30 5 MG Metoprolol Tartrate 50 mg BID PO 03/24/24 22:00 03/25/24 09:31 50 MG Pravastatin Sodium 40 mg DAILY PO 03/25/24 10:00 03/25/24 09:32 40 MG Albuterol 2.5 mg Q4HPRN PRN NEB 03/25/24 01:00 Ipratropium [place] 0.5 mg Q4HPRN PRN NEB 03/25/24 01:00 Pantoprazole Sodium 40 mg DAILY PO 03/25/24 10:00 03/25/24 09:30 40 MG Examination: LUNGS:Normal laboratory and microbiology Laboratory Tests 03/25/24 06:43 Test 03/25/24 06:43 Range/Units Serum Glucose 109 H 74-106 mg/dL Labs and/or images reviewed: Labs reviewed by me, Image(s) reviewed by me Problem List/Assessment/Plan Problem List/Assessment/Plan 1. Chest pain rule out ACS Cardiac consult, obtain echo, trend troponin 2. Chronic atrial fibrillation Continue Eliquis and amiodarone 3. CKD stage 2, no GUY Avoid nephrotoxic medication 4. Hyperlipidemia Continue home meds 5. GERD Continue PPI Subjective: Patient is awake and alert Objective: Patient was admitted for chest pain ACS was ruled out, troponins have been negative. Patient was seen by sports leadership instructor Dr. Pizarro ejection fraction is 65-70%. Per sports leadership instructor's note patient had recent bronchitis which could contribute to patient's chest pain. Plan: Obtain CT abdomen to rule out GI sources of chest pain, monitor EKG, cardiac consult appreciated, we will discharge tomorrow Plan discussed with: Patient Date of Service: Mar 25, 2024 Billing Provider: VERONICA HAYWOOD MD Common Visit Codes: [id number] INP/OBS CARE (MOD) BLAIRE MCLEOD SENIOR USER EXPERIENCE ARCHITECT Mar 25, 2024 11:11
[2024-03-25] MEDS: MAALOX PLUS or MAALOX 30 ML PO ONE (12:06)
--- NOTE | 2024-03-25 13:24 | DVHSR ---
APPROVED REPORT EXAM: Two-dimensional and M-mode echocardiogram with Doppler and color Doppler. Blood Pressure: 115/69 mmHg INDICATION Chest Pain RISK FACTORS Height: 5'9, Weight: 188 DIMENSIONS LVDd4.0 (3.8-5.7cm)LA (2D)3.5 (1.9-4.0cm)Aortic Root3.2 (2.0-3.7cm) LVDs2.4 (2.5-4.0cm)LA (MM) (1.9-4.0cm)Aortic Cusp Exc1.7 (1.5-2.0cm) EF (%) 65.0 (55-70%)Rt. Atrium1.9 (1.9-4.0cm)Asc. Aorta2.9 cm IVSd1.0 (0.7-1.1cm)RV (D) (1.8-2.4cm) PWd0.8 (0.7-1.1cm) Mitral Valve MitralMitral Stenosis E wave1.15m/sMV Mean GR.mmHg A wave1.01m/sMV Peak GR.mmHg E/A ratio1.12D MVAcm2 DECEL [id number] 1/2 Timems Aortic Valve Aortic ValveAortic Stenosis V11.37m/Romero Mean GR.5mmHg V21.60m/Romero Peak GR.10mmHg LVOT Diameter1.9 (1.8-2.4cm)Doppler AVA2.43cm2 Pulmonic Valve V21.44m/s Conclusion Left ventricle: Left ventricle is normal-sized with normal systolic function. LVEF was 65 to 70%. T here was no gross wall motion abnormality. Right ventricle is normal-sized with normal systolic function. Both atria were normal-sized. Aortic valve: Aortic valve was trileaflet. There was no aortic insufficiency/stenosis. There was tr ivial mitral/tricuspid/pulmonary valve insufficiency. As there was no good tricuspid regurgitation jet, right ventricular systolic pressure could not be es timated. There was no pericardial effusion.
--- NOTE | 2024-03-25 13:31 | DVHINCON2 ---
Date of service: Mar 25, 2024 History of Present Illness HPI Patient is a 48-year-old gentleman who presented with few days of chest discomfort and productive cough. Cardiology was involved for cardiac aspects of care. Patient is known to our practice from outside. He denies exertional component to his presentation. Home Meds Active Scripts Sucralfate (Sucralfate) 1 Gm Tab, 1 TAB PO QID for 30 Days, #120 TAB Prov:MCKENNA ROTH ENGINE ROOM HELPER 11/15/23 Pantoprazole Sodium Sesquihydr (Pantoprazole Sodium) 40 Mg Tab, 1 TAB PO BID for 30 Days, #60 TAB Prov:MCKENNA ROTH ENGINE ROOM HELPER 11/15/23 Amiodarone HCl (Amiodarone HCl) 200 Mg Tab, 200 MG PO HS for 30 Days, #30 TAB Prov:MCKENNA ROTH ENGINE ROOM HELPER 10/16/23 Reported Medications Labetalol HCl (Labetalol Hydrochloride) 200 Mg Tab, 1 TAB PO BID 03/25/24 Tamsulosin HCl (Tamsulosin Hydrochloride) 0.4 Mg Cap, 0.4 MG PO DAILY, CAP 03/25/24 Beclomethasone Dipropionate (Qvar Redihaler) 80 Mcg/Act Aer, 2 PUFF IN BID, AER 03/25/24 Docusate Sodium (Colace) 100 Mg Cap, 100 MG PO DAILY PRN for FOR CONSTIPATION, CAP 03/25/24 Albuterol Sulfate (Albuterol Sulfate Hfa) 108 Mcg/Act Aer, 1 PUFF INH Q4HPRN PRN for SHORTNESS OF BREATH 03/25/24 Hydroxyzine Hcl (Hydroxyzine Hcl) 25 Mg Tab, 20 MG PO DAILY PRN for FOR ITCHING, TAB 03/25/24 Magnesium Oxide (Magnesium Oxide) 400 Mg Tab, 1 TAB PO DAILY 11/14/23 Triamcinolone Acetonide (Triamcinolone Acetonide) 0.1 % Pst, 1 APPLIC TOP BID, APPLIC both arms 10/12/23 Albuterol Sulfate (VENTOLIN MDI) 90 Mcg Ih, 90 MCG IN Q4HP, INH 10/12/23 Apixaban Base (ELIQUIS) 5 Mg Tab, 5 MG PO BID, TAB 10/12/23 Meloxicam (Meloxicam) 15 Mg Tab, 1 TAB PO DAILY@BREAKFAST, #30 TAB 2 Refills 10/12/23 Evolocumab (Repatha) 140 Mg/Ml Inj, 1 ML SC, INJ take once every 24 days 10/12/23 Hctz (Hydrochlorothiazide) 25 Mg Tab, 25 MG PO DAILY, TAB 10/12/23 Dicyclomine Hcl (Dicyclomine Hcl) 20 Mg Tab, 10 MG PO TID, MG 10/12/23 Cholecalciferol (VITAMIN D3) 2,000 Unit Tab, 1 TAB PO DAILY, #30 TAB 5 Refills 10/12/23 Pravastatin Sodium (PRAVACHOL TABLET) 20 Mg Tb, 2 TAB PO DAILY, #30 TAB 5 Refills 10/12/23 Diphenhydramine Hcl (Banophen) 25 Mg Cap, 25 MG PO BID, CAP 10/12/23 Past Medical History Others Past medical history includes learning disability, hypertension, paroxysmal AFib (on Eliquis as outpatient), asthma, osteoarthritis, depression, BPH, hyperli pidemia (on Repatha as outpatient), migraines, history of vitamin-D deficiency and magnesium deficiency, CKD, GERD, short episodes of SVT and mild mitral valve prolapse. Patient Family History: Diabetes mellitus G8 FATHER, Smoker: No Hx (Negative) Alocohol: None Review of Systems Pulmonary/Respiratory: Dyspnea, Cough Cardiovascular: Chest Pain (Pleuritic) H&P Exam Vital Signs Vital Signs Date Time Temp Pulse Resp B/P (MAP) Pulse Ox O2 Delivery O2 Flow Rate FiO2 03/25/24 13:00 98.6 59 20 119/78 (92) 94 98.6 03/25/24 10:24 Room Air 0.0 03/25/24 10:24 21 General Appeara: Well developed Head Exam: Normal inspection Eye Exam: bilateral eye PERRL Mouth: Normal Inspection Pulmonary/Respiratory: Lungs clear Cardiovascular/Chest: Regular rate Peripheral Pulses: 2+ carotid (R), 2+ carotid (L), 2+ femoral (R), 2+ femoral (L), 2+ dorsalis pedis (R), 2+ dorsalis pedis (L), 2+ Radial (R), 2+ Radial (L) Abdominal Exam: Normal bowel sounds, Soft Neuro/Mental St: Alert, Oriented Appearance: Appropriate appearance Eye contact/ Speech: Cooperative, Good eye contact Labs/Xrays Labs Test 03/25/24 06:43 03/25/24 01:30 03/24/24 18:04 03/24/24 17:11 Range/Units White Blood Count 4.7 4.4-10.8 10^3/uL Red Blood Count 4.38 L 4.5-5.90 10^6/uL Hemoglobin 14.9 13.5-17.5 g/dL Hematocrit 42.0 41.0-53.0 % Mean Corpuscular Volume 95.8 80.0-100.0 fL Mean Corpuscular Hemoglobin 34.0 H 28.0-32.0 pg Mean Corpuscular Hemoglobin Concent 35.5 32.0-36.0 g/dL Red Cell Distribution Width 14.3 11.8-14.3 % Platelet Count 246 140-450 10^3/uL Mean Platelet Volume 7.1 6.9-10.8 fL Neutrophils (%) (Auto) 71.3 37.0-80.0 % Lymphocytes (%) (Auto) 16.0 10.0-50.0 % Monocytes (%) (Auto) 10.2 0.0-12.0 % Eosinophils (%) (Auto) 2.2 0.0-7.0 % Basophils (%) (Auto) 0.3 0.0-2.0 % Neutrophils # (Auto) 3.3 1.6-8.6 10 ^3/uL Lymphocytes # (Auto) 0.7 0.4-5.4 10 ^3/uL Monocytes # (Auto) 0.5 0-1.3 10 ^3/uL Eosinophils # (Auto) 0.1 0-0.8 10 ^3/uL Basophils # (Auto) 0 0-0.2 10 ^3/uL Nucleated Red Blood Cells 0.1 % Sodium Level 139 136-145 mmol/L Potassium Level 3.6 3.5-5.1 mmol/L Chloride Level 103 98-107 mmol/L Carbon Dioxide Level 30 20-31 mmol/L Anion Gap 6 5-15 Blood Urea Nitrogen 16 9-23 mg/dL Creatinine 1.33 H 0.700-1.30 mg/dL Glomerular Filtration Rate Calc 66 >90 mL/min BUN/Creatinine Ratio 12.0 10.0-20.0 Serum Glucose 109 H 74-106 mg/dL Calcium Level 10.2 8.7-10.4 mg/dL Total Bilirubin 0.9 0.2-1.0 mg/dL Aspartate Amino Transferase (AST) 23 13-40 U/L Alanine Aminotransferase (ALT) 33 7-40 U/L Alkaline Phosphatase 84 46-116 U/L Total Protein 7.0 5.7-8.2 g/dL Albumin 4.6 3.2-4.8 g/dL Urine Color Light-yellow Yellow Urine Clarity Clear Clear Urine pH 6.0 5.0-9.0 Urine Specific [place] 1.015 1.001-1.035 Urine Protein Negative Negative Urine Ketones Negative Negative Urine Blood Negative Negative /uL Urine Nitrite Negative Negative Urine Bilirubin Negative Negative Urine Urobilinogen Normal Negative mg/dL Urine Leukocyte Esterase Negative Negative /uL Urine RBC <1 0 - 3 /hpf Urine WBC <1 0 - 3 /hpf Urine Squamous Epithelial Cells Few <5 /hpf Urine Bacteria None seen None Seen /hpf Urine Creatinine 108.42 30.0-125.0 mg/dL Urine Sodium 91 40-220 mmol/L Urine Glucose Normal Normal mg/dL Urine Total Protein 6.6 1-14 mg/dL Urine Opiates Screen Neg NEGATIVE Urine Fentanyl Screen Neg NEGATIVE Urine Barbiturates Screen Neg NEGATIVE Urine Phencyclidine Screen Neg NEGATIVE Urine Amphetamines Screen Neg NEGATIVE Urine Benzodiazepines Screen Neg NEGATIVE Urine Cocaine Screen Neg NEGATIVE Urine Cannabinoids Screen Neg NEGATIVE Troponin I High Sensitivity 3 L </=54 ng/L D-Dimer, Quantitative 0.19 0.0-0.49 mg/L FEU Hemoglobin A1c 5.6 <5.7 % A1C Magnesium Level 2.0 1.6-2.6 mg/dL Thyroid Stimulating Hormone (TSH) 1.97 0.55-4.78 uIU/mL Assessment/Plan Plan Patient is a 48-year-old gentleman who presented with few days of chest discomfort and productive cough. Cardiology was involved for cardiac aspects of care. Patient is known to our practice from outside. He denies exertional component to his presentation. He was recently in the hospital with bronchitis. He does have baseline history of paroxysmal AFib and is on Eliquis as outpatien t. He has had negative nuclear stress test around a year ago. Chest pain started middle of the chest and non focused in the right side towards the right shoulder. Not in acute distress, walking easily and not in acute distress in emergency room floor. No carotid bruit. No JVD. Mucosa is pink and wet. Lungs: Clear to auscultation. Cardiac: Regular, no thrill/gallop, abdomen is soft. There is no gross mass/hepatomegaly. Extremities do not reveal edema. Dorsalis pedis is 2+ bilateral. Past medical history includes learning disability, hypertension, paroxysmal AFib (on Eliquis as outpatient), asthma, osteoarthritis, depression, BPH, hyperlipidemia (on Repatha as outpatient), migraines, history of vitamin-D deficiency and magnesium deficiency, CKD, GERD, short episodes of SVT and mild mitral valve prolapse. He is allergic to statins and is on Repatha as outpatient. Nuclear stress test of February 2023 did not reveal ischemia and reported ejection fraction of 77%. Echocardiogram of December 24, 2022 (performed in the office) revealed ejection fraction of 65-70%, mild MR/TR/PI and mild mitral valve prolapse Echocardiogram of October 13, 2023 had revealed ejection fraction of 64%, trace MR/TR/PI Creatinine: 1.38 - 1.33 Potassium: 3.6 - 3.6 D-dimer: 0.19 (within normal limits) Troponin (high sensitive): 3 - 3 Chest x-ray revealed: 1. Questionable left pneumothorax recommend CT of the chest noncontrast for further evaluation. CT of the chest revealed: IMPRESSION: 1. No acute intrathoracic abnormality. 2. No infiltrates no effusions. 3. No pneumothorax. EKG revealed sinus rhythm with nonspecific ST-T changes Telemetry has revealed sinus rhythm Echocardiogram revealed: Left ventricle: Left ventricle is normal-sized with normal systolic function. LVEF was 65 to 70%. There was no gross wall motion abnormality. Right ventricle is normal-sized with normal systolic function. Both atria were normal-sized. Aortic valve: Aortic valve was trileaflet. There was no aortic insufficiency/stenosis. There was trivial mitral/tricuspid/pulmonary valve insufficiency. As there was no good tricuspid regurgitation jet, right ventricular systolic pressure could not be estimated. There was no pericardial effusion. Patient is a 48-year-old gentleman who presented with atypical/pleuritic chest discomfort and cough. Does have recent diagnosis of bronchitis. Serial high sensitive troponin has also been negative. EKG has been nonrevealing. Echocardiogram has been nonrevealing. Acute coronary syndrome is not considered. Bronchitis could have contributed to the clinical picture Atypical chest pain History of recent bronchitis Paroxysmal AFib Hypertension Depression BPH SVT Mild mitral valve prolapse as outpatient Cardiac suggestion for management: Manage on telemetry Follow-up electrolytes and kidney function tests and correct abnormalities. Keep potassium above 4 and magnesium above 2 Long-term continuation of full anticoagulation (Eliquis) is advised No indication for repeat ischemic workup Evaluation and management for bronchitis as per primary team Further evaluation and management depends on the above and clinical course Thank you for consultation A total of 75 minutes was spent reviewing the patient record, examining the patient, making a diagnostic and therapeutic plan, discussing this plan with medical personnel, following up on diagnostic studies and following the patient for clinical stability excluding any and all procedures. At least 50% of this time was spent in direct, [id number] contact. Thank you for allowing me to participate in this patient's care. Further recommendations will depend on patient's clinical course. Please do not hesitate to contact me if you have any questions or concerns. This medical document was created using electronic medical record system with [employer] computerized dictation system. Although this document has been carefully reviewed, there may still be some phonetic and typographical errors. These areas are purely typographical due to the imperfection of the software programs, and do not reflect any compromise in the patient's medical care. Plan discussed with: Patient, Other (nurse) APOORVA JON MD Mar 25, 2024 13:31
[2024-03-26] VITALS (9 sets, daily range): BP systolic 118–140; BP diastolic 67–96; PULSE 61–76; RESP 18–20; TEMP 98.4–99; O2SAT 90–98
--- NOTE | 2024-03-26 07:40 | ECG ---
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
[2024-03-26 07:49] LABS: Basophils # (auto) 0 10 ^3/uL (0-0.2); Basophils % (auto) 0.7 % (0.0-2.0); Eosinophils # (auto) 0.1 10 ^3/uL (0-0.8); Eosinophils % (auto) 2.4 % (0.0-7.0); Hematocrit 46.9 % (41.0-53.0); Hemoglobin 16.3 g/dL (13.5-17.5); Lymphocytes # (auto) 1.1 10 ^3/uL (0.4-5.4); Lymphocytes % (auto) 21.4 % (10.0-50.0); Mean Corpuscular Hemoglobin 33.8 pg (28.0-32.0); Mean Corpuscular Hgb Conc. 34.8 g/dL (32.0-36.0); Monocytes # (auto) 0.5 10 ^3/uL (0-1.3); Neutrophils # (auto) 3.4 10 ^3/uL (1.6-8.6); Neutrophils % (auto) 66.5 % (37.0-80.0); Nucleated Red Blood Cells % 0.1 %; Platelet Count (auto) 255 10^3/uL (140-450); Red Blood Cells 4.83 10^6/uL (4.5-5.90); Red Cell Distribution Width 14.5 % (11.8-14.3); White Blood Cell 5.1 10^3/uL (4.4-10.8)
[2024-03-26 07:55] LABS: Chloride 106 mmol/L (98-107); Sodium 142 mmol/L (136-145)
[2024-03-26 07:56] LABS: Anion Gap 8 (5-15); Calcium 10.2 mg/dL (8.7-10.4); Carbon Dioxide 28 mmol/L (20-31)
[2024-03-26 08:01] LABS: BUN/Creatinine Ratio 13.8 (10.0-20.0); Blood Urea Nitrogen 19 mg/dL (9-23)
--- NOTE | 2024-03-26 08:02 | DVHPN2 ---
Progress Note - Dictate Date Seen: Mar 26, 2024 Medical Necessity Reason Pt with a Central, PICC or Fol: No vital signs Vital Sign Date Time Temp Pulse Resp B/P (MAP) Pulse Ox O2 Delivery O2 Flow Rate FiO2 03/26/24 05:52 97 Room Air 0.0 03/26/24 05:52 21 03/26/24 05:00 98.8 76 18 140/94 (109) 98.8 Total Intake and Output 03/25/24 03/25/24 03/26/24 15:00 23:00 07:00 Intake Total 1400 ml 800 ml Output Total 1700 ml 500 ml Balance -300 ml 300 ml medications Current Medications Medications Dose Ordered Sig/Yesenia Route Start Time Stop Time Status Last Admin Dose Admin Sodium Chloride 10 ml Q8HR IV 03/24/24 22:00 03/26/24 05:34 10 ML Ondansetron HCl 4 mg Q4HP PRN IV 03/24/24 21:15 03/25/24 06:03 4 MG Acetaminophen 650 mg Q6HP PRN PO 03/24/24 21:15 Nitroglycerin 0.4 mg Q5MINP PRN SL 03/24/24 21:15 Morphine Sulfate 2 mg Q30M PRN IV 03/24/24 21:15 Hold Amiodarone HCl 200 mg HS PO 03/24/24 22:00 03/25/24 22:00 200 MG Apixaban 5 mg BID PO 03/24/24 22:00 03/25/24 22:00 5 MG Metoprolol Tartrate 50 mg BID PO 03/24/24 22:00 03/25/24 22:00 50 MG Pravastatin Sodium 40 mg DAILY PO 03/25/24 10:00 03/25/24 09:32 40 MG Albuterol 2.5 mg Q4HPRN PRN NEB 03/25/24 01:00 Cancel Ipratropium Howes 0.5 mg Q4HPRN PRN NEB 03/25/24 01:00 Cancel Pantoprazole Sodium 40 mg DAILY PO 03/25/24 10:00 03/25/24 09:30 40 MG Guaifenesin 200 mg Q4HP PRN PO 03/26/24 07:00 UNV laboratory and microbiology Laboratory Tests 03/26/24 07:15 Test 03/26/24 07:15 Range/Units Serum Glucose Pending Assessment/Plan Patient is a 48-year-old gentleman who presented with few days of chest discomfort and productive cough. Cardiology was involved for cardiac aspects of care. Patient is known to our practice from outside. He denies exertional component to his presentation. He was recently in the hospital with bronchitis. He does have baseline history of paroxysmal AFib and is on Eliquis as outpatient. He has had negative nuclear stress test around a year ago. Chest pain started middle of the chest and non focused in the right side towards the right shoulder. Not in acute distress, walking easily and not in acute distress in emergency room floor. No carotid bruit. No JVD. Mucosa is pink and wet. Lungs: Clear to auscultation. Cardiac: Regular, no thrill/gallop, abdomen is soft. There is no gross mass/hepatomegaly. Extremities do not reveal edema. Dorsalis pedis is 2+ bilateral. Past medical history includes learning disability, hypertension, paroxysmal AFib (on Eliquis as outpatient), asthma, osteoarthritis, depression, BPH, hyperlipidemia (on Repatha as outpatient), migraines, history of vitamin-D deficiency and magnesium deficiency, CKD, GERD, short episodes of SVT and mild mitral valve prolapse. He is allergic to statins and is on Repatha as outpatient. Nuclear stress test of February 2023 did not reveal ischemia and reported ejection fraction of 77%. Echocardiogram of December 24, 2022 (performed in the office) revealed ejection fraction of 65-70%, mild MR/TR/PI and mild mitral valve prolapse Echocardiogram of October 13, 2023 had revealed ejection fraction of 64%, trace MR/TR/PI Creatinine: 1.38 - 1.33 - 1.38 Potassium: 3.6 - 3.6 - 4.0 D-dimer: 0.19 (within normal limits) Troponin (high sensitive): 3 - 3 Chest x-ray revealed: 1. Questionable left pneumothorax recommend CT of the chest noncontrast for further evaluation. CT of the chest revealed: IMPRESSION: 1. No acute intrathoracic abnormality. 2. No infiltrates no effusions. 3. No pneumothorax. EKG revealed sinus rhythm with nonspecific ST-T changes Telemetry has revealed sinus rhythm Echocardiogram revealed: Left ventricle: Left ventricle is normal-sized with normal systolic function. LVEF was 65 to 70%. There was no gross wall motion abnormality. Right ventricle is normal-sized with normal systolic function. Both atria were normal-sized. Aortic valve: Aortic valve was trileaflet. There was no aortic insufficiency/stenosis. There was trivial mitral/tricuspid/pulmonary valve insufficiency. As there was no good tricuspid regurgitation jet, right ventricular systolic pressure could not be estimated. There was no pericardial effusion. Patient is a 48-year-old gentleman who presented with atypical/pleuritic chest discomfort and cough. Does have recent diagnosis of bronchitis. Serial high sensitive troponin has also been negative. EKG has been nonrevealing. Echocardiogram has been nonrevealing. Acute coronary syndrome is not considered. Bronchitis could have contributed to the clinical picture Atypical chest pain History of recent bronchitis Paroxysmal AFib Hypertension Depression BPH SVT Mild mitral valve prolapse as outpatient Cardiac suggestion for management: Manage on telemetry Follow-up electrolytes and kidney function tests and correct abnormalities. Keep potassium above 4 and magnesium above 2 Long-term continuation of full anticoagulation (Eliquis) is advised No indication for repeat ischemic workup Evaluation and management for bronchitis as per primary team Cardiac kovacs is stable and can be followed as outpatient Further evaluation and management depends on the above and clinical course A total of 55 minutes was spent reviewing the patient record, examining the patient, making a diagnostic and therapeutic plan, discussing this plan with medical personnel, following up on diagnostic studies and following the patient for clinical stability excluding any and all procedures. At least 50% of this time was spent in direct, [id number] contact. Thank you for allowing me to participate in this patient's care. Further recommendations will depend on patient's clinical course. Please do not hesitate to contact me if you have any questions or concerns. This medical document was created using electronic medical record system with [employer] computerized dictation system. Although this document has been carefully reviewed, there may still be some phonetic and typographical errors. These areas are purely typographical due to the imperfection of the software programs, and do not reflect any compromise in the patient's medical care. Plan discussed with: Patient, Other (nurse) APOORVA JON MD Mar 26, 2024 08:02
[2024-03-26 08:03] LABS: Glucose 106 mg/dL (74-106)
--- NOTE | 2024-03-26 09:15 | DVH ---
CT CT AB PEL WO CON-NO ORAL OR IV INDICATION: abdominal pain EXAM DATE: 03/26/2024 08:50 AM COMPARISON: CT CT AB PEL WO CON-NO ORAL OR IV on DOS: 11/12/23, CT CT AB PEL WO CON-NO ORAL OR IV on DO S: 10/13/23 RADIATION DOSE: CTDIvol: 14.7 mGy, DLP: 878.19 mGy*cm PROCEDURE: Helical CT images were obtained of the abdomen and pelvis without IV contrast Sagittal an d coronal reconstructions are provided. ORAL CONTRAST: None. ADDITIONAL IMAGES / REFORMATS: None All CT scans at this medical facility are performed using dose modulation techniques as appropriate t o a performed exam including the following: Automated exposure control was utilized; adjustment of th e MA and/or KV according to patient size; and use of iterative reconstruction technique. FINDINGS: LUNG BASE: Normal. LIVER: Normal. GALLBLADDER AND BILIARY TREE: No calcified gallstones. Normal caliber wall. No intra- or extrahepatic biliary ductal dilation. PANCREAS: Normal. SPLEEN: Normal. BOWEL: Normal. Normal appendix. ADRENALS: Normal. KIDNEYS AND URETER: Normal. BLADDER: Normal. REPRODUCTIVE ORGANS: Normal. LYMPH NODES:No lymphadenopathy. PERITONEUM: No ascites or free air. No other fluid collection. VESSELS: Scattered atherosclerotic calcifications are noted. RETROPERITONEUM: Normal. ABDOMINAL WALL: Normal. BONES: Scattered osseous degenerative changes are noted. IMPRESSION: No acute intraabdominal abnormality.
[2024-03-26] MEDS: guaiFENesin 200 MG/10 ML UD PO PRN (10:47)
[2024-03-26] MEDS ORDERED: PROM25TA10 PO (11:04)
[2024-03-26] MEDS ORDERED: DOXY-286 PO (11:04)
--- NOTE | 2024-03-26 11:04 | DVHDS2 ---
Discharge Summary Date of Admission Mar 24, 2024 at 21:13 Date of Discharge: Mar 26, 2024 Admitting Diagnosis Chest pain rule out ACS Labs/Diagnostic Data: Laboratory Results Test 03/26/24 07:15 03/25/24 06:43 03/25/24 01:30 03/24/24 18:04 White Blood Count 5.1 10^3/uL (4.4-10.8) Red Blood Count 4.83 10^6/uL (4.5-5.90) Hemoglobin 16.3 g/dL (13.5-17.5) Hematocrit 46.9 % (41.0-53.0) Mean Corpuscular Volume 97.0 fL (80.0-100.0) Mean Corpuscular Hemoglobin 33.8 pg (28.0-32.0) Mean Corpuscular Hemoglobin Concent 34.8 g/dL (32.0-36.0) Red Cell Distribution Width 14.5 % (11.8-14.3) Platelet Count 255 10^3/uL (140-450) Mean Platelet Volume 7.5 fL (6.9-10.8) Neutrophils (%) (Auto) 66.5 % (37.0-80.0) Lymphocytes (%) (Auto) 21.4 % (10.0-50.0) Monocytes (%) (Auto) 9.0 % (0.0-12.0) Eosinophils (%) (Auto) 2.4 % (0.0-7.0) Basophils (%) (Auto) 0.7 % (0.0-2.0) Neutrophils # (Auto) 3.4 10 ^3/uL (1.6-8.6) Lymphocytes # (Auto) 1.1 10 ^3/uL (0.4-5.4) Monocytes # (Auto) 0.5 10 ^3/uL (0-1.3) Eosinophils # (Auto) 0.1 10 ^3/uL (0-0.8) Basophils # (Auto) 0 10 ^3/uL (0-0.2) Nucleated Red Blood Cells 0.1 % Sodium Level 142 mmol/L (136-145) Potassium Level 4.0 mmol/L (3.5-5.1) Chloride Level 106 mmol/L (98-107) Carbon Dioxide Level 28 mmol/L (20-31) Anion Gap 8 (5-15) Blood Urea Nitrogen 19 mg/dL (9-23) Creatinine 1.38 mg/dL (0.700-1.30) Glomerular Filtration Rate Calc 63 mL/min (>90) BUN/Creatinine Ratio 13.8 (10.0-20.0) Serum Glucose 106 mg/dL (74-106) Calcium Level 10.2 mg/dL (8.7-10.4) Total Bilirubin 0.9 mg/dL (0.2-1.0) Aspartate Amino Transferase (AST) 23 U/L (13-40) Alanine Aminotransferase (ALT) 33 U/L (7-40) Alkaline Phosphatase 84 U/L (46-116) Total Protein 7.0 g/dL (5.7-8.2) Albumin 4.6 g/dL (3.2-4.8) Urine Color Light-yellow (Yellow) Urine Clarity Clear (Clear) Urine pH 6.0 (5.0-9.0) Urine Specific Lares 1.015 (1.001-1.035) Urine Protein Negative (Negative) Urine Ketones Negative (Negative) Urine Blood Negative /uL (Negative) Urine Nitrite Negative (Negative) Urine Bilirubin Negative (Negative) Urine Urobilinogen Normal mg/dL (Negative) Urine Leukocyte Esterase Negative /uL (Negative) Urine RBC <1 /hpf (0 - 3) Urine WBC <1 /hpf (0 - 3) Urine Squamous Epithelial Cells Few /hpf (<5) Urine Bacteria None seen /hpf (None Seen) Urine Creatinine 108.42 mg/dL (30.0-125.0) Urine Sodium 91 mmol/L (40-220) Urine Glucose Normal mg/dL (Normal) Urine Total Protein 6.6 mg/dL (1-14) Urine Opiates Screen Neg (NEGATIVE) Urine Fentanyl Screen Neg (NEGATIVE) Urine Barbiturates Screen Neg (NEGATIVE) Urine Phencyclidine Screen Neg (NEGATIVE) Urine Amphetamines Screen Neg (NEGATIVE) Urine Benzodiazepines Screen Neg (NEGATIVE) Urine Cocaine Screen Neg (NEGATIVE) Urine Cannabinoids Screen Neg (NEGATIVE) Troponin I High Sensitivity 3 ng/L (</=54) Test 03/24/24 17:11 D-Dimer, Quantitative 0.19 mg/L FEU (0.0-0.49) Hemoglobin A1c 5.6 % A1C (<5.7) Magnesium Level 2.0 mg/dL (1.6-2.6) Thyroid Stimulating Hormone (TSH) 1.97 uIU/mL (0.55-4.78) Other Laboratory Tests 03/26/24 07:15 Brief Hx & Hospital Course: Patient was admitted for chest pain ACS was ruled out. Patient's troponins were negative. Patient was seen and cleared by digital measurement advisor Dr. Pizarro ejection fraction was found to be 65-70% upon echo. Likely chest pain was related to recent bronchitis. Patient was sent home on doxycycline x7 days. Obtain CT abdomen to rule out any GI sources of chest pain which was negative. Patient is to follow up with PCP within one week of discharge. Patient has CKD stage 2 no GUY noted Condition at Discharge: Fair Final Diagnosis/Problems List 1. Chest pain rule out ACS likley from bronchitis 2. Chronic atrial fibrillation 3. CKD stage 2, no GUY Avoid nephrotoxic medication 4. Hyperlipidemia 5. GERD Discharge Disposition: Home Discharge Instruct/Medications Diet: Cardiac 2g Na,low cholest, See Comment Activity: No Restrictions, As Tolerated Follow Up/Referral: PCP within 1 week Discharge Statement: "Patient was advised to return to the ER or call 911 if any headaches, dizziness, shortness of breath, chest pain, abdominal pain, bleeding, fevers, or worsening of medical condition. Patient was counseled about treatment plan, medications, possible side effects, patientverbalized understanding. All questions were answered to the best of my ability. This discharge took greater then 30 minutes in planning, reviewing documentation, counseling the patient, and discussing with other team members." ASSESSMENT ASSESSMENT Assessment 1. Chest pain rule out ACS likley from bronchitis 2. Chronic atrial fibrillation 3. CKD stage 2, no GUY Avoid nephrotoxic medication 4. Hyperlipidemia 5. GERD [employer] J[employer] ANALYST Mar 26, 2024 11:04
--- NOTE | 2024-03-27 15:18 | ECG ---
[facility] Test Date: 2024-03-24 Test Time: 18:12:40 Pat Name: LUIS MIGUEL JOSHI Department: ED Room: [facility]1T B Gender: M [employer]oc[employer] Operator: KARL : 1975 Requested By: NARESH METZGER Order Number: [id number] Reading MD: James Moses Measurements Intervals [place] Rate: 77 P: 73 MS: 164 QRS: 59 QRSD: 87 T: 14 QT: 383 QTc: 434 Interpretive Statements Sinus rhythm Baseline wander in lead(s) III,aVF,V5 Electronically Signed On 03-28-2024 13:02:54 PST by James Moses Please click the below link to view image of tracing.
--- NOTE | 2024-03-28 09:52 | ECG ---
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
== END 2024-03-26 13:25 | disposition home or self-care (01) | DRG 202 ==
LOC: ER 16:59 → TELE 21:13 → TELE-EAST 23:46
PROVIDERS: ATTEND Nurse Practitioner Family
DX: J20.9 Acute bronchitis, unspecified (principal); D68.69 Other thrombophilia; I48.0 Paroxysmal atrial fibrillation; I34.1 Nonrheumatic mitral (valve) prolapse; N40.0 Benign prostatic hyperplasia without lower urinary tract symptoms; E55.9 Vitamin D deficiency, unspecified; I12.9 Hypertensive chronic kidney disease with stage 1 through stage 4 chronic kidney disease, or unspecified chronic kidney disease; G43.909 Migraine, unspecified, not intractable, without status migrainosus; F32.A Depression, unspecified; K21.9 Gastro-esophageal reflux disease without esophagitis; E78.5 Hyperlipidemia, unspecified; J45.909 Unspecified asthma, uncomplicated; N18.2 Chronic kidney disease, stage 2 (mild); Z79.01 Long term (current) use of anticoagulants; Z88.8 Allergy status to other drugs, medicaments and biological substances; Z87.891 Personal history of nicotine dependence; Z83.3 Family history of diabetes mellitus; Z79.899 Other long term (current) drug therapy; Z88.0 Allergy status to penicillin; Z88.6 Allergy status to analgesic agent; Z88.1 Allergy status to other antibiotic agents; Z88.5 Allergy status to narcotic agent; Z91.018 Allergy to other foods
CPT/HCPCS: 36415; 71045; 71250; 74176; 80048; 80053; 80307; 81001; 82570; 83036; 83735; 84156; 84300; 84443; 84484; 85025; 85379; 93005; 93306; G0378; J2405

== ENCOUNTER 2024-04-13 15:46 | Emergency (ER) | payer OTHER ==
[~2024-04-13] VITALS: Ht 175.3 cm; Wt 88.0 kg
[~2024-04-13 15:46] MED LIST changes: +ALBU108A5 INH; -AMLO1TAB22 PO; -AMLO1TAB23 PO; +BECL80AE11 IN; -DICY10CA PO; +DOCU-94 PO; +HYDR-3682 PO; +LABE200T9 PO; -METO-158 PO; -PANT40TA2 PO; -POLY335015 PO; -PROM1SOL4 PO; +PROM25TA10 PO; -SENN1TAB49 PO; +TAMS1CAP25 PO
--- NOTE | 2024-04-13 17:25 | ED.PDOC ---
SOB-HPI HPI Comments A 48 YEAR OLD MALE PRESENTS TO THE ED WITH CHIEF COMPLAINT OF COUGH. PATIENT REPORTS THAT HE HAS BEEN EXPERIENCING A PERSISTENT COUGH WITH ASSOCIATED CHEST TIGHTNESS FOR THE PAST 3 WEEKS. PATIENT RELAYS THAT HE HAD BEEN PREVIOUSLY DIAGNOSED WITH BRONCHITIS IN THE PAST, BELIEVING HE HAS IT AGAIN. PER PT, HE IS ON ANTIBIOTIC AND COUGH MEDICATION FROM HIS PCP. PATIENT DENIES ANY FEVER, CHILLS, SOB, N/V, HEADACHE, OR DIZZINESS. NO OTHER SYMPTOMS REPORTED AT THIS TIME OF CARE. Chief Complaint: Cough Time Seen by MD: 17:21 Primary Care Provider: JORDYN Reviewed notes: Nurses Notes, Medications, Allergies Information Source: Patient Mode of Arrival: Ambulatory Severity: Mild, Moderate Timing: Weeks Duration: Since onset Context: At Rest PE Risk Factors: None History of: Recent URI Prehospital treatment: None Modifying Factors: Nothing Associated Signs and Symptoms: Cough, Nasal Congestion Quality: Tightness Radiation: No Radiation Location: Substernal If cough with SOB: Productive Past Medical History PAST MEDICAL HISTORY: AFIB, Asthma, HTN Surgical History: Denies all surgeries Family History Family History: Reviewed,noncontributory to illness, No family hx of Cancer, No family hx of DM, No family hx of Heart tim, No family hx of HTN, No family hx ofKidney tim, No family hx of Liver tim, No family hx of Lung tim, No family hx of Stroke Social History Smoker: Cigarettes Alcohol: Denies ETOH Use Drugs: Denies Drug Use Lives In: Home Constitutional: denies: chills, diaphoresis, fatigue, fever, malaise, sweats, weakness, others EENTM: reports: nose congestion; denies: blurred vision, double vision, ear bleeding, ear discharge, ear drainage, ear pain, ear ringing, eye pain, eye redness, hearing loss, mouth pain, mouth swelling, nasal discharge, nose bleeding, nose pain, photophobia, tearing, throat pain, throat swelling, voice changes, others Respiratory: reports: cough; denies: hemoptysis, orthopnea, SOB at rest, shortness of breath, SOB with excertion, stridor, wheezing, others Cardiovascular: denies: dizzy spells, diaphoresis, Dyspnea on exertion, edema, irregular heart beat, left arm pain, lightheadedness, palpitations, PND, syncope, others Gastrointestinal: denies: abdomen distended, abdominal pain, blood streaked bowels, constipated, diarrhea, dysphagia, difficulty swallowing, hematemesis, melena, nausea, poor appetite, poor fluid intake, rectal bleeding, rectal pain, vomiting, others Genitourinary: denies: burning, dysuria, flank pain, frequency, hematuria, incontinence, penile discharge, penile sore, pain, testicle pain, testicle swelling, urgency, others Neurological: denies: dizziness, fainting, headache, left sided numbness, left sided weakness, numbness, paresthesia, pre-existing deficit, right sided numbness, right sided weakness, seizure, speech problems, tingling, tremors, weakness, others Musculoskeletal: denies: back pain, gout, joint pain, joint swelling, muscle pain, muscle stiffness, neck pain, others Integumetry: denies: bruises, change in color, change in hair/nails, dryness, laceration, lesions, lumps, rash, wounds, others Allergic/Immunocompromised: denies: Difficulty Healing, Frequent Infections, Hives, Itching, others Hematologic/Lymphatic: denies: anemia, blood clots, easy bleeding, easy bruising, swollen glands, others Endocrine: denies: excessive hunger, excessive sweating, excessive thirst, excessive urination, flushing, intolerance to cold, intolerance to heat, unexplained weight gain, unexplained weight loss, others Psychiatric: reports: anxiety; denies: bipolar disorder, depression, hopeless, panic disorder, schizophrenia, sleepless, suicidal, others All Other Systems: Reviewed and Negative Physical Exam General Appearance: No Apparent Distress, Normal, Other (ANXIOUS ) HEENT: Normal ENT Inspection, PERRL/EOMI, Pharynx Normal, TMs Normal Neck: Full Range of Motion, Non-Tender, Normal, Normal Inspection Respiratory: Chest Non-Tender, Expiration, No Accessory Muscle Use, No Respiratory Distress, Rhonchi, Wheezing (MILD ) Cardiovascular: No Edema, No JVD, No Murmur, No Gallop, Normal Peripheral Pulses, Regular Rate/Rhythm Breast Exam: Deferred Gastrointestinal: No Organomegaly, Non Tender, No Pulsatile Mass, Normal Bowel Sounds, Soft Genitalia: Deferred Pelvic: Deferred Rectal: Deferred Extremities: No calf tenderness, Normal capillary refill, Normal inspection, No rmal range of motion, Non-tender, No pedal edema Musculoskeletal : Apperance: Normal Neurologic: Alert, scale adjuster II-XII nml as Tested, No Motor Deficits, Normal Affect, Normal Mood, No Sensory Deficits Cerebellar Function: Normal Reflexes: Normal Skin: Dry, Normal Color, Warm Peripheral Pulses: 2+ carotid (R), 2+ carotid (L) Lymphatic: No Adenopathy Was a procedure done? Was a procedure done?: No Differential Dx Differential Diagnosis: Bronchitis, Pneumonia, Sinusitis, Allergic Rhinitis, Otitis Media, Pharyngitis, URI X-Ray, Labs, Meds, VS Vital Signs Date Time Temp Pulse Resp B/P (MAP) Pulse Ox O2 Delivery O2 Flow Rate FiO2 04/13/24 16:46 98.3 84 18 138/87 (104) 96 CHEST XR: FINDINGS: Lines and Tubes: None Lungs: Clear Pleura: No effusion. No pneumothorax. Cardiomediastinal contours: Unremarkable Bones: Unremarkable IMPRESSION: No evidence of acute disease. X-Ray, Labs, Meds, VS Comment EXTERNAL MEDICAL RECORDS REVIEWED: 02/11/24 FOR BRONCHITIS INDEPENDENT HISTORIANS: [NONE] SOCIAL DETERMINANTS OF HEALTH: [NONE] LABS ORDERED: NONE REVIEWED AND INTERPRETED RESULTS: CHEST XR IMAGING ORDERED: CHEST XR TREATMENTS ORDERED: DUONEB BREATHING TREATMENT PROCEDURES PERFORMED: NONE CRITICAL CARE TIME: NONE BASED ON HISTORY OF PRESENT ILLNESS, AND PHYSICAL EXAM, PATIENT WILL BE DISCHARGED HOME. DISCUSSED PLAN FOR DISCHARGE HOME WITH RX. MEDICATION WARNINGS GIVEN. SHARED DECISION MAKING: DISCUSSED WITH PATIENT THAT THEIR WORKUP WAS NORMAL. PAT IENT INSTRUCTED TO FOLLOW UP WITH PRIMARY CARE PROVIDER IN 1-2 DAYS FOR RE- EVALUATION OF SYMPTOMS. PATIENT VERBALIZES UNDERSTANDING TO RETURN TO ED FOR NEW OR WORSENING SYMPTOMS OR IF FOLLOW UP WITH PCP CANNOT BE OBTAINED. PATIENT FEELS COMFORTABLE GOING HOME AT THIS TIME. ALL QUESTIONS ADDRESSED AT TIME OF DISCHARGE. Images Reviewed?: Images reviewed and evaluated by me Time of 1ST Reevaluation: 18:00 Reevaluation 1ST: Improved Patient Education/Counseling: Diagnosis, Treatment, Need For Follow Up Family Education/Counseling: Diagnosis, Treatment, No Family Present Medical Screening: No EMC Exist At This Time Departure 1 Departure Time of Disposition: 18:00 Impression: Primary Impression: Acute asthmatic bronchitis Disposition: 01 HOME / SELF CARE / HOMELESS Condition: Stable Additional Instructions: FOLLOW-UP WITH PCP IN 1 TO 2 DAYS. TAKE MEDICATIONS PRESCRIBED. RETURN TO ED FOR ANY NEW OR WORSENING SYMPTOMS. e-Prescriptions Methylprednisolone (Medrol Dosepak) 4 Mg Kvng 4 MG PO UD, #21 TAB UAD Prov: CHRISSIE SUH 04/13/24 Discharged With: Self Critical Care Note Critical Care Time?: No Stability Stability form required: No Heart Score Heart Score: Heart Score Response (Comments) Value History N/A 0 EKG N/A 0 Age N/A 0 Risk Factors N/A 0 Troponin N/A 0 Total 0 I personally scribed for CHRISSIE SUH ([email or web address]) on 04/13/24 at 17:25. Electronically submitted by Mejia Ewing ([email or web address]). I personally scribed for CHRISSIE SUH ([email or web address]) on 04/13/24 at 17:31. Electronically submitted by Mejia Ewing ([email or web address]). I personally scribed for CHRISSIE SUH ([email or web address]) on 04/13/24 at 17:40. Electronically submitted by Mejia Ewing ([email or web address]). I personally scribed for GHASSAN MORGAN MD ([email or web address]) on 04/13/24 at 17:44. Electronically submitted by Mejia Ewing ([email or web address]). CHRISSIE SUH Apr 13, 2024 17:25 GHASSAN MORGAN MD Apr 13, 2024 17:44
--- NOTE | 2024-04-13 17:37 | DVH ---
CHEST RADIOGRAPH Indication: COUGH AND CONGESTION Technique: Frontal and lateral view of the chest was obtained Comparison: XY CHEST TWO VIEWS ROUTINE on DOS: 02/16/24 FINDINGS: Lines and Tubes: None Lungs: Clear Pleura: No effusion. No pneumothorax. Cardiomediastinal contours: Unremarkable Bones: Unremarkable IMPRESSION: No evidence of acute disease.
[2024-04-13] MEDS ORDERED: METH4PAK PO (17:39)
[2024-04-13 18:00] VITALS: BP 136/82; PULSE 82; TEMP 98.6
[2024-04-13 18:12] VITALS: RESP 18; O2SAT 93
[2024-04-13] MEDS: IPRATROPIUM BROM 0.5 MG/2.5ML INH SOL NEB ONE (18:12)
[2024-04-13] MEDS: ALBUTEROL SULF 2.5 MG/0.5ML(0.5%) NEB SOLN NEB ONE (18:12)
== END 2024-04-13 18:30 | disposition home or self-care (01) ==
LOC: ER 15:46
DX: J45.909 Unspecified asthma, uncomplicated (principal); I48.91 Unspecified atrial fibrillation; I10 Essential (primary) hypertension; F17.210 Nicotine dependence, cigarettes, uncomplicated
CPT/HCPCS: 71046; 94640

== ENCOUNTER 2024-04-30 10:14 | Emergency (ER) | payer OTHER ==
[~2024-04-30] VITALS: Ht 175.3 cm; Wt 83.2 kg
[~2024-04-30 10:14] MED LIST changes: +METH4PAK PO
[2024-04-30 11:00] VITALS: PULSE 92; RESP 16; O2SAT 98
[2024-04-30 11:29] LABS: Basophils # (auto) 0 10 ^3/uL (0-0.2); Basophils % (auto) 0.4 % (0.0-2.0); Eosinophils # (auto) 0.1 10 ^3/uL (0-0.8); Eosinophils % (auto) 1.4 % (0.0-7.0); Hematocrit 49.8 % (41.0-53.0); Lymphocytes # (auto) 0.8 10 ^3/uL (0.4-5.4); Lymphocytes % (auto) 12.8 % (10.0-50.0); Mean Corpuscular Hemoglobin 33.4 pg (28.0-32.0); Mean Corpuscular Hgb Conc. 34.2 g/dL (32.0-36.0); Mean Corpuscular Volume 97.7 fL (80.0-100.0); Monocytes # (auto) 0.5 10 ^3/uL (0-1.3); Monocytes % (auto) 7.8 % (0.0-12.0); Neutrophils # (auto) 4.9 10 ^3/uL (1.6-8.6); Neutrophils % (auto) 77.6 % (37.0-80.0); Nucleated Red Blood Cells % 0.1 %; Platelet Count (auto) 217 10^3/uL (140-450); Red Cell Distribution Width 14.4 % (11.8-14.3); White Blood Cell 6.4 10^3/uL (4.4-10.8)
[2024-04-30 11:47] LABS: Albumin 4.8 g/dL (3.2-4.8); Alkaline Phosphatase 93 U/L (46-116); Anion Gap 9 (5-15); Aspartate Aminotransferase 28 U/L (13-40); BUN/Creatinine Ratio 10.9 (10.0-20.0); Bilirubin, Total 0.6 mg/dL (0.2-1.0); Blood Urea Nitrogen 16 mg/dL (9-23); Calcium 10.2 mg/dL (8.7-10.4); Carbon Dioxide 26 mmol/L (20-31); Chloride 104 mmol/L (98-107); Sodium 139 mmol/L (136-145); Total Protein 7.3 g/dL (5.7-8.2)
[2024-04-30 12:09] LABS: Alanine Aminotransferase 42 U/L (7-40); Glucose 130 mg/dL (74-106); Lipase 60 U/L (12-53); Potassium 3.3 mmol/L (3.5-5.1)
--- NOTE | 2024-04-30 13:48 | ED.PDOC ---
GI ASSESSMENT HPI Comments 48M presents to the ER in a wheelchair and w/ prior Hx of GI Bleed and constipation which may be associated to the c/c of ABD pain/dizziness. Pt reports that he was at [facility] and was admitted w/ the diagnoses of having AFIB on Wednesday. Pt notes on that day he had an US of his ABD. Between going from [place] on Wednesday of 04/22/23 to [place] last night he started to have ABD pain and Dizziness. When the pt was admitted to [place] he stated that they did not help with the dizziness and all they did was a workup and that is the reason he is here right now. PMHx of Anxiety, Asthma, High Lipids, HTN, Afib, ADHD, fatty Liver and RVR. Denies chills, fever, N/V/D, SOB, CP or other associated symptom's, modifiers, or recent injuries or sick contact at this time. Chief Complaint: Abdominal Pain Time Seen by MD: 13:10 Primary Care Provider: DR COBB Reviewed Notes: Nurses Notes, Medications, Allergies Allergies: Coded Allergies: Acetaminophen (Verified Allergy, Unknown, 03/02/23) Amoxicillin (Verified Allergy, Unknown, 03/02/23) Codeine (Verified Allergy, Unknown, 03/02/23) Hydrocodone (Verified Allergy, Unknown, 03/24/24) Ibuprofen (Verified Allergy, Unknown, 03/02/23) Morphine (Verified Allergy, Unknown, 03/02/23) Penicillins (Verified Allergy, Unknown, 03/02/23) Statins (Verified Allergy, Unknown, 03/02/23) Tramadol (Verified Allergy, Unknown, 03/02/23) Uncoded Allergies: WALNUTS (Allergy, Unknown, 03/02/23) Home Meds Active Scripts Methylprednisolone (Medrol Dosepak) 4 Mg Kvng, 4 MG PO UD, #21 TAB UAD Prov:CHRISSIE SUH 04/13/24 Promethazine Hcl (Promethazine Hcl) 25 Mg Tab, 1 TAB PO Q6HPRN for 14 Days, #56 TAB Prov:BLAIRE MCLEOD 03/26/24 Doxycycline Hyclate (DOXYCYCLINE HYCLATE) 100 Mg Tab, 1 TAB PO BID for 10 Days, #20 TAB Prov:BLAIRE MCLEOD 03/26/24 Sucralfate (Sucralfate) 1 Gm Tab, 1 TAB PO QID for 30 Days, #120 TAB Prov:MCKENNA ROTH ALUMINUM FABRICATION SUPERVISOR 11/15/23 Pantoprazole Sodium Sesquihydr (Pantoprazole Sodium) 40 Mg Tab, 1 TAB PO BID for 30 Days, #60 TAB Prov:MCKENNA ROTH ALUMINUM FABRICATION SUPERVISOR 11/15/23 Amiodarone HCl (Amiodarone HCl) 200 Mg Tab, 200 MG PO HS for 30 Days, #30 TAB Prov:MCKENNA ROTH ALUMINUM FABRICATION SUPERVISOR 10/16/23 Reported Medications Labetalol HCl (Labetalol Hydrochloride) 200 Mg Tab, 1 TAB PO BID 03/25/24 Tamsulosin HCl (Tamsulosin Hydrochloride) 0.4 Mg Cap, 0.4 MG PO DAILY, CAP 03/25/24 Beclomethasone Dipropionate (Qvar Redihaler) 80 Mcg/Act Aer, 2 PUFF IN BID, AER 03/25/24 Docusate Sodium (Colace) 100 Mg Cap, 100 MG PO DAILY PRN for FOR CONSTIPATION, CAP 03/25/24 Albuterol Sulfate (Albuterol Sulfate Hfa) 108 Mcg/Act Aer, 1 PUFF INH Q4HPRN PRN for SHORTNESS OF BREATH 03/25/24 Hydroxyzine Hcl (Hydroxyzine Hcl) 25 Mg Tab, 20 MG PO DAILY PRN for FOR ITCHING, TAB 03/25/24 Magnesium Oxide (Magnesium Oxide) 400 Mg Tab, 1 TAB PO DAILY 11/14/23 Triamcinolone Acetonide (Triamcinolone Acetonide) 0.1 % Pst, 1 APPLIC TOP BID, APPLIC both arms 10/12/23 Albuterol Sulfate (VENTOLIN MDI) 90 Mcg Ih, 90 MCG IN Q4HP, INH 10/12/23 Apixaban Base (ELIQUIS) 5 Mg Tab, 5 MG PO BID, TAB 10/12/23 Meloxicam (Meloxicam) 15 Mg Tab, 1 TAB PO DAILY@BREAKFAST, #30 TAB 2 Refills 10/12/23 Evolocumab (Repatha) 140 Mg/Ml Inj, 1 ML SC, INJ take once every 24 days 10/12/23 Hctz (Hydrochlorothiazide) 25 Mg Tab, 25 MG PO DAILY, TAB 7/9/24 Dicyclomine Hcl (Dicyclomine Hcl) 20 Mg Tab, 10 MG PO TID, MG 10/12/23 Cholecalciferol (VITAMIN D3) 2,000 Unit Tab, 1 TAB PO DAILY, #30 TAB 5 Refills 10/12/23 Pravastatin Sodium (PRAVACHOL TABLET) 20 Mg Tb, 2 TAB PO DAILY, #30 TAB 5 Refills 10/12/23 Diphenhydramine Hcl (Banophen) 25 Mg Cap, 25 MG PO BID, CAP 10/12/23 Information Source: Patient Mode of Arrival: Ambulatory Timing: Days Duration: Since onset, Days Prehospital treatment: None Quality: Aching Vomitus: None Stool: Normal Severity: Moderate Recent: None Recent Hx of: GI Bleed Pain Location: LLQ, Suprapubic Associated sign and symptoms: Abdominal Pain Past Medical History PAST MEDICAL HISTORY: AFIB, Anxiety, Asthma, High Lipids, HTN Past Medical History (Other): ADHD, fatty Liver, GI Bleed in 2022, RVR and Constipation Surgical History: Denies all surgeries Family History Family History: Reviewed,noncontributory to illness, Unknown Social History Smoker: Non-Smoker Alcohol: Denies ETOH Use Drugs: Denies Drug Use Lives In: Home Constitutional: denies: chills, diaphoresis, fatigue, fever, malaise, sweats, weakness, others EENTM: denies: blurred vision, double vision, ear bleeding, ear discharge, ear drainage, ear pain, ear ringing, eye pain, eye redness, hearing loss, mouth pain, mouth swelling, nasal discharge, nose bleeding, nose congestion, nose pain, photophobia, tearing, throat pain, throat swelling, voice changes, others Respiratory: denies: cough, hemoptysis, orthopnea, SOB at rest, shortness of breath, SOB with excertion, stridor, wheezing, others Cardiovascular: denies: chest pain, dizzy spells, diaphoresis, Dyspnea on exertion, edema, irregular heart beat, left arm pain, lightheadedness, palpitations, PND, syncope, others Gastrointestinal: reports: abdominal pain; denies: abdomen distended, blood streaked bowels, constipated, diarrhea, dysphagia, difficulty swallowing, h ematemesis, melena, nausea, poor appetite, poor fluid intake, rectal bleeding, rectal pain, vomiting, others Genitourinary: denies: burning, dysuria, flank pain, frequency, hematuria, incontinence, penile discharge, penile sore, pain, testicle pain, testicle swelling, urgency, others Neurological: reports: dizziness; denies: fainting, headache, left sided numbness, left sided weakness, numbness, paresthesia, pre-existing deficit, right sided numbness, right sided weakness, seizure, speech problems, tingling, tremors, weakness, others Musculoskeletal: denies: back pain, gout, joint pain, joint swelling, muscle pain, muscle stiffness, neck pain, others Integumetry: denies: bruises, change in color, change in hair/nails, dryness, laceration, lesions, lumps, rash, wounds, others Allergic/Immunocompromised: denies: Difficulty Healing, Frequent Infections, Hives, Itching, others Hematologic/Lymphatic: denies: anemia, blood clots, easy bleeding, easy bruising, swollen glands, others Endocrine: denies: excessive hunger, excessive sweating, excessive thirst, excessive urination, flushing, intolerance to cold, intolerance to heat, unexplained weight gain, unexplained weight loss, others Psychiatric: denies: anxiety, bipolar disorder, depression, hopeless, panic disorder, schizophrenia, sleepless, suicidal, others All Other Systems: Reviewed and Negative Physical Exam General Appearance: No Apparent Distress, Normal, Other (MULTIPLE COMPLAINTS) HEENT: Normal ENT Inspection, PERRL/EOMI, Pharynx Normal, TMs Normal Neck: Limited Range of Motion, Normal, Normal Inspection, Tender Lateral Respiratory: Chest Non-Tender, Lungs Clear, No Accessory Muscle Use, No Respiratory Distress, Normal Breath Sounds Cardiovascular: No Edema, No JVD, No Murmur, No Gallop, Normal Peripheral Pulses, Regular Rate/Rhythm Breast Exam: Deferred Gastrointestinal: LLQ, No Organomegaly, No Pulsatile Mass, Normal Bowel Sounds, Soft, Tenderness Genitalia: Deferred Pelvic: Deferred Rectal: Deferred Extremities: No calf tenderness, Normal capillary refill, Normal inspection, Normal range of motion, Non-tender, No pedal edema Musculoskeletal : Location: Right Extremity Location: Shoulder Apperance: Normal, Limited ROM, Tenderness: Mild Neurologic: Alert, hvac mechanical engineer II-XII nml as Tested, No Motor Deficits, Normal Affect, Normal Mood, No Sensory Deficits Cerebellar Function: Normal Reflexes: Normal Skin: Dry, Normal Color, Warm Peripheral Pulses: 1+ carotid (R), 1+ carotid (L) Lymphatic: No Adenopathy EKG EKG : Pulse Rate (adult): 97 [place]: Normal Cardiac Rhythm: NSR Was a procedure done? Was a procedure done?: No GI differential Dx Differential Diagnosis: Cholecystitis, Constipation, Diverticular disease, Gastritis/PUD, Gastroenteritis, Inflammatory BD, Urolithiasis, Dehydration, Diabetes/ DKA, Drug toxicity, Electrolyte Imbalance, Mass, Anemia X-Ray, Labs, Meds, VS Vital Signs Date Time Temp Pulse Resp B/P (MAP) Pulse Ox O2 Delivery O2 Flow Rate FiO2 04/30/24 14:02 99.1 89 15 148/79 (102) 97 99.1 04/30/24 11:00 92 16 98 Room Air* 0 21 04/30/24 11:00 99.1 92 14 140/85 (103) 98 99.1 04/30/24 10:31 97 04/30/24 10:27 98.6 103 18 154/91 (112) 98 Lab Test 04/30/24 11:05 04/30/24 10:05 Range/Units White Blood Count 6.4 4.4-10.8 10^3/uL Red Blood Count 5.10 4.5-5.90 10^6/uL Hemoglobin 17.0 13.5-17.5 g/dL Hematocrit 49.8 41.0-53.0 % Mean Corpuscular Volume 97.7 80.0-100.0 fL Mean Corpuscular Hemoglobin 33.4 H 28.0-32.0 pg Mean Corpuscular Hemoglobin Concent 34.2 32.0-36.0 g/dL Red Cell Distribution Width 14.4 H 11.8-14.3 % Platelet Count 217 140-450 10^3/uL Mean Platelet Volume 7.2 6.9-10.8 fL Neutrophils (%) (Auto) 77.6 37.0-80.0 % Lymphocytes (%) (Auto) 12.8 10.0-50.0 % Monocytes (%) (Auto) 7.8 0.0-12.0 % Eosinophils (%) (Auto) 1.4 0.0-7.0 % Basophils (%) (Auto) 0.4 0.0-2.0 % Neutrophils # (Auto) 4.9 1.6-8.6 10 ^3/uL Lymphocytes # (Auto) 0.8 0.4-5.4 10 ^3/uL Monocytes # (Auto) 0.5 0-1.3 10 ^3/uL Eosinophils # (Auto) 0.1 0-0.8 10 ^3/uL Basophils # (Auto) 0 0-0.2 10 ^3/uL Nucleated Red Blood Cells 0.1 % Sodium Level 139 136-145 mmol/L Potassium Level 3.3 L 3.5-5.1 mmol/L Chloride Level 104 98-107 mmol/L Carbon Dioxide Level 26 20-31 mmol/L Anion Gap 9 5-15 Blood Urea Nitrogen 16 9-23 mg/dL Creatinine 1.47 H 0.700-1.30 mg/dL Glomerular Filtration Rate Calc 58 >90 mL/min BUN/Creatinine Ratio 10.9 10.0-20.0 Serum Glucose 130 H 74-106 mg/dL Calcium Level 10.2 8.7-10.4 mg/dL Total Bilirubin 0.6 0.2-1.0 mg/dL Aspartate Amino Transferase (AST) 28 13-40 U/L Alanine Aminotransferase (ALT) 42 H 7-40 U/L Alkaline Phosphatase 93 46-116 U/L Total Protein 7.3 5.7-8.2 g/dL Albumin 4.8 3.2-4.8 g/dL Lipase 60 H 12-53 U/L Magnesium Level 2.4 1.6-2.6 mg/dL Current Medications Medications (Trade) Dose Ordered Sig/Yesenia Route Start Time Stop Time Status Last Admin Metoclopramide HCl (Reglan Injection) 10 mg ONCE ONCE IV 04/30/24 13:30 04/30/24 13:34 DC 04/30/24 13:56 Ketorolac Tromethamine (Toradol Injection) 30 mg ONCE ONCE IV 04/30/24 13:30 04/30/24 13:34 DC 04/30/24 13:56 Sodium Chloride 500 ml @ 500 mls/hr Q1H ONCE IVB 04/30/24 13:45 04/30/24 14:44 DC 04/30/24 13:57 X-Ray, Labs, Meds, VS Comment COURSE IN THE EMERGENCY DEPARTMENT EVENTFUL PATIENT CAME IN BECAUSE OF DIZZINESS AND ABDOMINAL PAIN SEEN AT [facility] YESTERDAY AND AT [place] FEW DAYS AGO FOR ATRIAL FIBRILLATION THE PATIENT WITH A HISTORY OF GERD PUD HIGH CHOLESTEROL ASTHMA HYPERTENSION BPH FATTY LIVER DEPRESSION ANXIETY NO PAST SURGICAL HISTORY OF ANY SIGNIFICANCE EKG SHOWS NORMAL SINUS RHYTHM AT 97 CT ABDOMEN AND PER THE WITH CONTRAST IS NEGATIVE CBC NORMAL CMP POTASSIUM 3.3 GFR AT 58 BLOOD SUGAR 130 LIPASE 60 URINE PENDING MAGNESIUM 2.4 PATIENT WILL BE DISCHARGED HOME TO FOLLOW UP WITH HIS PCPS HIS CARDIOLOGY IN HIS GI DOCTOR Time of 1ST Reevaluation: 13:40 Reevaluation 1ST: Unchanged Time of 2ND Reevaluation: 15:16 Reevaluation 2ND: Improved Consultation: PCP, Cardiology Patient Education/Counseling: Diagnosis, Treatment, Prognosis, Need For Follow Up Family Education/Counseling: Diagnosis, Treatment, Prognosis, Need For Follow Up, No Family Present Departure 1 Departure Time of Disposition: 15:18 Impression: Primary Impression: Nonspecific abdominal pain Additional Impressions: Migraine headache Qualified Codes: G43.E09 - Chronic migraine with aura, not intractable, without status migrainosus HTN (hypertension) Qualified Codes: I10 - Essential (primary) hypertension Bursitis of right shoulder Hypokalemia Elevated lipase Disposition: HOME / SELF CARE / HOMELESS Condition: Fair Additional Instructions: LOCAL HEAT AND FOLLOW UP WITH YOUR PCP e-Prescriptions Cyclobenzaprine Hcl (Cyclobenzaprine Hcl) 10 Mg Tab 10 MG PO TID for 10 Days, #30 TAB Prov: ZEKE FISHER MD 04/30/24 Metoclopramide Hcl (Reglan) 10 Mg Tab 10 MG PO BID for 14 Days, #28 TAB Prov: ZEKE FISHER MD 04/30/24 Discharged With: Self Critical Care Note Critical Care Time?: No Stability Stability form required: No Heart Score Heart Score: Heart Score Response (Comments) Value History N/A 0 EKG Normal 0 Age 45-64 1 Risk Factors 1 or 2 risk factors 1 Troponin N/A 0 Total 2 I personally scribed for ZEKE FISHER MD ([email or web address]) on 04/30/24 at 13:48. Electronically submitted by Jessee Andrade ([email or web address]). ZEKE FISHER MD Apr 30, 2024 13:48
[2024-04-30] MEDS: KETOROLAC TROMETH 30 MG/ML 1ML VIAL IV ONE (13:56)
[2024-04-30] MEDS: METOCLOPRAMIDE HCL 5MG/ml INJ 2ml VIAL IV ONE (13:56)
[2024-04-30] MEDS: SODIUM CHLORIDE 0.9% 500 ML IVB ONE (13:57)
[2024-04-30] MEDS: IOHEXOL 300 MG/ML 100ML BOTTLE IJ ONE (13:57)
--- NOTE | 2024-04-30 14:06 | DVH ---
XY CHEST TWO VIEWS ROUTINE CLINICAL HISTORY: ABDOMINAL PAIN RIGHT SHOULDER PAIN COMPARISON: XY CHEST TWO VIEWS ROUTINE on DOS: 04/13/24, XY CHEST TWO VIEWS ROUTINE on DOS: 02/16/24 TECHNIQUE: Frontal and lateral view of the chest was obtained FINDINGS: Lines and Tubes: None Lungs: No focal consolidation. Pleura: No effusion. No pneumothorax. Cardiomediastinal contours: Unremarkable Bones: No acute osseous abnormality. IMPRESSION: No acute cardiopulmonary disease.
--- NOTE | 2024-04-30 14:16 | DVH ---
Exam: CT CT AB PEL WITH IV CON ONLY History: PERSISTENT ABDOMINAL PAIN MOSTLY LEFT-SIDED Comparison Study: None available at time of dictation. Contrast: Type of contrast: Omnipaque 300 Contrast injected: 100 mL Contrast wasted: 0 TECHNIQUE: A digital director franchise sales image was obtained. During the uneventful, intravenous administration of c ontrast material, multislice data acquisition was obtained through the abdomen and pelvis. The data s et was subsequently reconstructed into axial images. Images were reviewed on a work station using a c ombination of axial and multiplanar using a variety of window levels and settings. Radiation Dose Information: CT Dose: CTDI volume is 12.14 mGy. Dose-length product is 756.37 mGy*cm FINDINGS: Lung Bases: No acute or significant lung base finding. Normal heart size. No pleural or pericardial effusion. Liver: The liver is normal in size. No focal lesions. Normal hepatic vascular enhancement. Gallbladder and Biliary Tree: Unremarkable Spleen: Unremarkable Pancreas: The pancreas is normal in appearance without focal lesions or abnormal enhancement. Adrenal Glands: Unremarkable Kidneys: Kidneys demonstrate normal symmetric enhancement without focal lesions, calculi or hydroneph rosis. Bladder: Unremarkable Bowel: The stomach is grossly normal in appearance. Small bowel and colon are normal in caliber and d istribution. The appendix is not visualized; however, no secondary findings of acute appendicitis id entified. Ascites: Absent Lymphadenopathy: No mesenteric, retroperitoneal or periportal lymphadenopathy. Abdominal Wall and Mesentery: Unremarkable. Vasculature: The visualized abdominal aorta is normal in size and caliber. Abdominal and pelvic vess els demonstrate normal enhancement. Pelvic Organs: Unremarkable Musculoskeletal: No aggressive focal bony lesions, acute fractures or dislocation. Soft tissues: Unremarkable. IMPRESSION: 1. No acute abnormality in the abdomen or pelvis. 2. No calcified gallstones 3. No nephrolithiasis or hydronephrosis 4. No findings bowel obstruction All CT scans at this medical facility are performed using dose modulation techniques as appropriate t o a performed exam including the following: Automated exposure control was utilized; adjustment of th e MA and/or KV according to patient size; and use of iterative reconstruction technique.
[2024-04-30] MEDS ORDERED: METO-281 PO (15:24)
[2024-04-30] MEDS ORDERED: CYCL-839 PO (15:24)
[2024-04-30] MEDS: POTASSIUM EFFERVESENT TAB 25 MEQ PO ONE (15:58)
[2024-04-30 16:01] VITALS: BP 129/74; PULSE 85; RESP 16; TEMP 99.5; O2SAT 98
--- NOTE | 2024-05-01 06:56 | ECG ---
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
== END 2024-04-30 16:06 | disposition home or self-care (01) ==
LOC: ER 10:14
DX: G43.909 Migraine, unspecified, not intractable, without status migrainosus (principal); R10.9 Unspecified abdominal pain; I10 Essential (primary) hypertension; M75.51 Bursitis of right shoulder; E87.6 Hypokalemia; R74.8 Abnormal levels of other serum enzymes; I48.91 Unspecified atrial fibrillation; J45.909 Unspecified asthma, uncomplicated; F41.9 Anxiety disorder, unspecified; K76.0 Fatty (change of) liver, not elsewhere classified; Z88.8 Allergy status to other drugs, medicaments and biological substances; Z88.5 Allergy status to narcotic agent; Z88.6 Allergy status to analgesic agent; Z88.0 Allergy status to penicillin; Z79.1 Long term (current) use of non-steroidal anti-inflammatories (NSAID)
CPT/HCPCS: 36415; 71046; 74177; 80053; 83690; 83735; 85025; 93005; 96374; 96375; 99285; J1885; J2765; Q9967; 96361

== ENCOUNTER 2024-05-16 16:06 | Emergency (ER) | payer OTHER ==
[~2024-05-16] VITALS: Ht 175.3 cm; Wt 88.1 kg
[~2024-05-16 16:06] MED LIST changes: +CYCL-839 PO; +METO-281 PO
--- NOTE | 2024-05-16 17:27 | DVH ---
CT ABDOMEN AND PELVIS WITHOUT CONTRAST CLINICAL HISTORY: abd pain TECHNIQUE: Multiple contiguous axial images of the abdomen and pelvis without intravenous contrast. The images were reformatted degenerate coronal and sagittal reconstructions. All CT scans at this medical facility are performed using dose modulation techniques as appropriate t o a performed exam including the following:Automated exposure control was utilized; adjustment of the MA and/or KV according to patient size; and use of iterative reconstruction technique. Radiation Dose Information: CT Dose: CTDI volume is 14 mGy. Dose-length product is 793 mGy*cm Comparison: 03/26/2024 FINDINGS: Evaluation of the abdomen and pelvis is limited without intravenous contrast. The gallbladder is mildly contracted without evidence of gallstones. The liver, pancreas, kidneys, adrenal glands, and spleen appear within normal limits. There is no gross evidence of abdominal lymphadenopathy. There is no free fluid or free air. The stomach grossly appears unremarkable. The small and large bowel loops demonstrate normal caliber and appear within normal limits.. A normal-appearing appendix is seen in the right lower quadrant a bdomen with no associated inflammatory changes. The abdominal aorta and IVC appear within normal limits. The bladder appears unremarkable for the degree of distention. Pelvic organ appears within normal mahoney its. There is no gross evidence of a pelvic mass. There is no free fluid collection. Lung bases are clear. There is no acute osseous abnormality. IMPRESSION: 1. There is no acute process in the abdomen and pelvis. 2. Mildly contracted gallbladder without evidence of gallstones. HS:Y
[2024-05-16 17:56] LABS: Urine Bacteria None Seen /hpf (None Seen)
[2024-05-16 18:36] LABS: Basophils # (auto) 0 10 ^3/uL (0-0.2); Basophils % (auto) 0.6 % (0.0-2.0); Eosinophils # (auto) 0.2 10 ^3/uL (0-0.8); Eosinophils % (auto) 3.1 % (0.0-7.0); Hematocrit 47.4 % (41.0-53.0); Hemoglobin 16.3 g/dL (13.5-17.5); Lymphocytes # (auto) 1.1 10 ^3/uL (0.4-5.4); Lymphocytes % (auto) 19.8 % (10.0-50.0); Mean Corpuscular Hemoglobin 33.2 pg (28.0-32.0); Mean Corpuscular Hgb Conc. 34.3 g/dL (32.0-36.0); Mean Corpuscular Volume 96.8 fL (80.0-100.0); Monocytes # (auto) 0.5 10 ^3/uL (0-1.3); Monocytes % (auto) 8.5 % (0.0-12.0); Neutrophils # (auto) 3.8 10 ^3/uL (1.6-8.6); Nucleated Red Blood Cells % 0.3 %; Platelet Count (auto) 312 10^3/uL (140-450); Red Cell Distribution Width 14.5 % (11.8-14.3); White Blood Cell 5.6 10^3/uL (4.4-10.8)
[2024-05-16 18:37] LABS: Urine Blood Negative /uL (Negative); Urine Clarity Clear (Clear); Urine Color Yellow (Yellow); Urine Mucus FEW (None Seen); Urine Protein, UAD Negative (Negative); Urine Specific Gravity 1.027 (1.001-1.035); Urine Squamous Epithelial Cell FEW /hpf (<5); Urine Urobilinogen Normal (Negative)
[2024-05-16 18:38] LABS: Alanine Aminotransferase 35 U/L (7-40); Alkaline Phosphatase 91 U/L (46-116); Anion Gap 8 (5-15); Aspartate Aminotransferase 26 U/L (13-40); BUN/Creatinine Ratio 17.3 (10.0-20.0); Carbon Dioxide 30 mmol/L (20-31); Chloride 102 mmol/L (98-107); Lipase 46 U/L (12-53); Sodium 140 mmol/L (136-145)
[2024-05-16 18:39] LABS: Bilirubin, Total 0.4 mg/dL (0.2-1.0); Total Protein 7.5 g/dL (5.7-8.2)
[2024-05-16 18:42] LABS: Albumin 5.2 g/dL (3.2-4.8); Blood Urea Nitrogen 23 mg/dL (9-23); Calcium 10.7 mg/dL (8.7-10.4); Glucose 136 mg/dL (74-106); Potassium 3.5 mmol/L (3.5-5.1)
--- NOTE | 2024-05-16 19:11 | ED.PDOC ---
GI ASSESSMENT HPI Comments Patient reports he has been dealing with chronic back pain and abdominal pain for the last two months. States he was seen at [facility], he was initially seen for AFib and told him that his stomach so he was seen by Dr. Troy, GI specialist. Because he was AFib and on blood thinners they refused to do endoscopy. Patient states he was then seen by Dr. Troy again at this hospital. He was states he was put on dicyclomine but it was not feel any relief. States he was constantly dealing with constipation and having and GI upset. Denies any vomiting. He was unsure if it is his medications that are causing his upset stomach. Patient also reports some pain after urination. Chief Complaint: Abdominal Pain Time Seen by MD: 17:01 Primary Care Provider: JORDYN Reviewed Notes: Nurses Notes Allergies: Coded Allergies: Acetaminophen (Verified Allergy, Unknown, 03/02/23) Amoxicillin (Verified Allergy, Unknown, 03/02/23) Codeine (Verified Allergy, Unknown, 03/02/23) Hydrocodone (Verified Allergy, Unknown, 03/24/24) Ibuprofen (Verified Allergy, Unknown, 03/02/23) Morphine (Verified Allergy, Unknown, 03/02/23) Penicillins (Verified Allergy, Unknown, 03/02/23) Statins (Verified Allergy, Unknown, 03/02/23) Tramadol (Verified Allergy, Unknown, 03/02/23) Uncoded Allergies: WALNUTS (Allergy, Unknown, 03/02/23) Home Meds Active Scripts Cyclobenzaprine Hcl (Cyclobenzaprine Hcl) 10 Mg Tab, 10 MG PO TID for 10 Days, #30 TAB Prov:ZEKE FISHER MD 04/30/24 Metoclopramide Hcl (Reglan) 10 Mg Tab, 10 MG PO BID for 14 Days, #28 TAB Prov:ZEKE FISHER MD 04/30/24 Methylprednisolone (Medrol Dosepak) 4 Mg Kvng, 4 MG PO UD, #21 TAB UAD Prov:CHRISSIE SUH 04/13/24 Promethazine Hcl (Promethazine Hcl) 25 Mg Tab, 1 TAB PO Q6HPRN for 14 Days, #56 TAB Prov:BLAIRE MCLEOD 03/26/24 Doxycycline Hyclate (DOXYCYCLINE HYCLATE) 100 Mg Tab, 1 TAB PO BID for 10 Days, #20 TAB Prov:EMELY JESUSBLAIRE NETWORK CONTROL TECHNICIAN 03/26/24 Sucralfate (Sucralfate) 1 Gm Tab, 1 TAB PO QID for 30 Days, #120 TAB Prov:MCKENNA ROTH TRAIN OPERATIONS MANAGER 11/15/23 Pantoprazole Sodium Sesquihydr (Pantoprazole Sodium) 40 Mg Tab, 1 TAB PO BID for 30 Days, #60 TAB Prov:MCKENNA ROTH TRAIN OPERATIONS MANAGER 11/15/23 Amiodarone HCl (Amiodarone HCl) 200 Mg Tab, 200 MG PO HS for 30 Days, #30 TAB Prov:MCKENNA ROTH TRAIN OPERATIONS MANAGER 10/16/23 Reported Medications Labetalol HCl (Labetalol Hydrochloride) 200 Mg Tab, 1 TAB PO BID 03/25/24 Tamsulosin HCl (Tamsulosin Hydrochloride) 0.4 Mg Cap, 0.4 MG PO DAILY, CAP 03/25/24 Beclomethasone Dipropionate (Qvar Redihaler) 80 Mcg/Act Aer, 2 PUFF IN BID, AER 03/25/24 Docusate Sodium (Colace) 100 Mg Cap, 100 MG PO DAILY PRN for FOR CONSTIPATION, CAP 03/25/24 Albuterol Sulfate (Albuterol Sulfate Hfa) 108 Mcg/Act Aer, 1 PUFF INH Q4HPRN PRN for SHORTNESS OF BREATH 03/25/24 Hydroxyzine Hcl (Hydroxyzine Hcl) 25 Mg Tab, 20 MG PO DAILY PRN for FOR ITCHING, TAB 03/25/24 Magnesium Oxide (Magnesium Oxide) 400 Mg Tab, 1 TAB PO DAILY 11/14/23 Triamcinolone Acetonide (Triamcinolone Acetonide) 0.1 % Pst, 1 APPLIC TOP BID, APPLIC both arms 10/12/23 Albuterol Sulfate (VENTOLIN MDI) 90 Mcg Ih, 90 MCG IN Q4HP, INH 10/12/23 Apixaban Base (ELIQUIS) 5 Mg Tab, 5 MG PO BID, TAB 10/12/23 Meloxicam (Meloxicam) 15 Mg Tab, 1 TAB PO DAILY@BREAKFAST, #30 TAB 2 Refills 10/12/23 Evolocumab (Repatha) 140 Mg/Ml Inj, 1 ML SC, INJ take once every 24 days 10/12/23 Hctz (Hydrochlorothiazide) 25 Mg Tab, 25 MG PO DAILY, TAB 10/12/23 Dicyclomine Hcl (Dicyclomine Hcl) 20 Mg Tab, 10 MG PO TID, MG 10/12/23 Cholecalciferol (VITAMIN D3) 2,000 Unit Tab, 1 TAB PO DAILY, #30 TAB 5 Refills 10/12/23 Pravastatin Sodium (PRAVACHOL TABLET) 20 Mg Tb, 2 TAB PO DAILY, #30 TAB 5 Refills 10/12/23 Diphenhydramine Hcl (Banophen) 25 Mg Cap, 25 MG PO BID, CAP 10/12/23 Information Source: Patient Mode of Arrival: Ambulatory Past Medical History PAST MEDICAL HISTORY: AFIB, Anxiety, Asthma, High Lipids, HTN Surgical History: Denies all surgeries Family History Family History: Reviewed,noncontributory to illness, Unknown Social History Smoker: Non-Smoker Alcohol: Denies ETOH Use Drugs: Denies Drug Use Lives In: Home Constitutional: denies: chills, diaphoresis, fatigue, fever, malaise, sweats, weakness, others EENTM: denies: blurred vision, double vision, ear bleeding, ear discharge, ear drainage, ear pain, ear ringing, eye pain, eye redness, hearing loss, mouth monica n, mouth swelling, nasal discharge, nose bleeding, nose congestion, nose pain, photophobia, tearing, throat pain, throat swelling, voice changes, others Respiratory: denies: cough, hemoptysis, orthopnea, SOB at rest, shortness of breath, SOB with excertion, stridor, wheezing, others Cardiovascular: denies: chest pain, dizzy spells, diaphoresis, Dyspnea on exertion, edema, irregular heart beat, left arm pain, lightheadedness, palpitations, PND, syncope, others Gastrointestinal: reports: abdominal pain, vomiting; denies: abdomen distended, blood streaked bowels, constipated, diarrhea, dysphagia, difficulty swallowing, hematemesis, melena, nausea, poor appetite, poor fluid intake, rectal bleeding, rectal pain, others Genitourinary: denies: burning, dysuria, flank pain, frequency, hematuria, incontinence, penile discharge, penile sore, pain, testicle pain, testicle swelling, urgency, others Neurological: denies: dizziness, fainting, headache, left sided numbness, left sided weakness, numbness, paresthesia, pre-existing deficit, right sided numbness, right sided weakness, seizure, speech problems, tingling, tremors, weakness, others Musculoskeletal: denies: back pain, gout, joint pain, joint swelling, muscle pain, muscle stiffness, neck pain, others Integumetry: denies: bruises, change in color, change in hair/nails, dryness, laceration, lesions, lumps, rash, wounds, others Allergic/Immunocompromised: denies: Difficulty Healing, Frequent Infections, Hives, Itching, others Hematologic/Lymphatic: denies: anemia, blood clots, easy bleeding, easy bruising, swollen glands, others Physical Exam General Appearance: No Apparent Distress, Normal HEENT: Normal ENT Inspection, Pharynx Normal, TMs Normal Neck: Full Range of Motion, Non-Tender, Normal, Normal Inspection Respiratory: Chest Non-Tender, Lungs Clear, No Accessory Muscle Use, No Respiratory Distress, Normal Breath Sounds Cardiovascular: No Edema, No JVD, No Murmur, No Gallop, Normal Peripheral Pulses, Regular Rate/Rhythm Breast Exam: Deferred Gastrointestinal: No Organomegaly, Non Tender, No Pulsatile Mass, Normal Bowel Sounds, Soft Genitalia: Deferred Pelvic: Deferred Rectal: Deferred Extremities: No calf tenderness, Normal capillary refill, Normal inspection, Normal range of motion, Non-tender, No pedal edema Musculoskeletal : Apperance: Normal Neurologic: Alert, a/c tech II-XII nml as Tested, No Motor Deficits, Normal Affect, Normal Mood, No Sensory Deficits Cerebellar Function: Normal Reflexes: Normal Skin: Dry, Normal Color, Warm Lymphatic: No Adenopathy Was a procedure done? Was a procedure done?: No GI differential Dx Differential Diagnosis: Cholecystitis, Constipation, Gastritis/PUD, Gastroenteritis, GI hemorrhage, Hernia, Urinary Obstruction, UTI X-Ray, Labs, Meds, VS Vital Signs Date Time Temp Pulse Resp B/P (MAP) Pulse Ox O2 Delivery O2 Flow Rate FiO2 05/16/24 16:30 98.4 102 16 136/91 (106) 96 Lab Test 05/16/24 17:28 05/16/24 16:35 Range/Units White Blood Count 5.6 4.4-10.8 10^3/uL Red Blood Count 4.90 4.5-5.90 10^6/uL Hemoglobin 16.3 13.5-17.5 g/dL Hematocrit 47.4 41.0-53.0 % Mean Corpuscular Volume 96.8 80.0-100.0 fL Mean Corpuscular Hemoglobin 33.2 H 28.0-32.0 pg Mean Corpuscular Hemoglobin Concent 34.3 32.0-36.0 g/dL Red Cell Distribution Width 14.5 H 11.8-14.3 % Platelet Count 312 140-450 10^3/uL Mean Platelet Volume 7.2 6.9-10.8 fL Neutrophils (%) (Auto) 68.0 37.0-80.0 % Lymphocytes (%) (Auto) 19.8 10.0-50.0 % Monocytes (%) (Auto) 8.5 0.0-12.0 % Eosinophils (%) (Auto) 3.1 0.0-7.0 % Basophils (%) (Auto) 0.6 0.0-2.0 % Neutrophils # (Auto) 3.8 1.6-8.6 10 ^3/uL Lymphocytes # (Auto) 1.1 0.4-5.4 10 ^3/uL Monocytes # (Auto) 0.5 0-1.3 10 ^3/uL Eosinophils # (Auto) 0.2 0-0.8 10 ^3/uL Basophils # (Auto) 0 0-0.2 10 ^3/uL Nucleated Red Blood Cells 0.3 % Sodium Level 140 136-145 mmol/L Potassium Level 3.5 3.5-5.1 mmol/L Chloride Level 102 98-107 mmol/L Carbon Dioxide Level 30 20-31 mmol/L Anion Gap 8 5-15 Blood Urea Nitrogen 23 9-23 mg/dL Creatinine 1.33 H 0.700-1.30 mg/dL Glomerular Filtration Rate Calc 66 >90 mL/min BUN/Creatinine Ratio 17.3 10.0-20.0 Serum Glucose 136 H 74-106 mg/dL Calcium Level 10.7 H 8.7-10.4 mg/dL Total Bilirubin 0.4 0.2-1.0 mg/dL Aspartate Amino Transferase (AST) 26 13-40 U/L Alanine Aminotransferase (ALT) 35 7-40 U/L Alkaline Phosphatase 91 46-116 U/L Total Protein 7.5 5.7-8.2 g/dL Albumin 5.2 H 3.2-4.8 g/dL Lipase 46 12-53 U/L Urine Color Yellow Yellow Urine Clarity Clear Clear Urine pH 6.0 5.0-9.0 Urine Specific [place] 1.027 1.001-1.035 Urine Protein Negative Negative Urine Ketones Negative Negative Urine Blood Negative Negative /uL Urine Nitrite Negative Negative Urine Bilirubin Negative Negative Urine Urobilinogen Normal Negative mg/dL Urine Leukocyte Esterase Negative Negative /uL Urine RBC <1 0 - 3 /hpf Urine Microscopic WBC 0-3 /HPF Urine Squamous Epithelial Cells Few <5 /hpf Urine Bacteria None seen None Seen /hpf Urine Mucus Few None Seen Urine Glucose Normal Normal mg/dL X-Ray, Labs, Meds, VS Comment Imaging: X-rays and CT scans were reviewed and interpreted by this provider, imaging shows no fractures and no pathological disease. Pending radiology review. Laboratory: Labs reviewed and interpreted by this provider. No significant abnormalities noted. Patient has prior medical visits reviewed. Med reconciliation performed Vital signs reviewed Time of 1ST Reevaluation: 19:10 Reevaluation 1ST: Improved Patient Education/Counseling: Diagnosis, Treatment, Need For Follow Up (Follow up with GI specialist next available appointment.) Family Education/Counseling: Treatment Departure 1 Departure Time of Disposition: 19:07 Impression: Primary Impression: Gastritis Qualified Codes: K29.50 - Unspecified chronic gastritis without bleeding Disposition: 01 HOME / SELF CARE / HOMELESS Condition: Fair Discharged With: Self Critical Care Note Critical Care Time?: No Stability Stability form required: No Heart Score Heart Score: Heart Score Response (Comments) Value History N/A 0 EKG N/A 0 Age N/A 0 Risk Factors N/A 0 Troponin N/A 0 Total 0 BENIGNO SANDSP May 16, 2024 19:11
[2024-05-16 19:25] VITALS: BP 121/85; PULSE 100; RESP 17; TEMP 98.9; O2SAT 95
== END 2024-05-16 19:35 | disposition home or self-care (01) ==
LOC: ER 16:06
DX: K29.70 Gastritis, unspecified, without bleeding (principal); I10 Essential (primary) hypertension; E78.5 Hyperlipidemia, unspecified; I48.91 Unspecified atrial fibrillation; F41.9 Anxiety disorder, unspecified; J45.909 Unspecified asthma, uncomplicated; Z79.899 Other long term (current) drug therapy; Z88.0 Allergy status to penicillin; Z88.5 Allergy status to narcotic agent; Z88.6 Allergy status to analgesic agent; Z88.8 Allergy status to other drugs, medicaments and biological substances
CPT/HCPCS: 36415; 74176; 80053; 81001; 83690; 85025

== ENCOUNTER 2024-05-17 19:12 | Inpatient (IN) | payer OTHER ==
[~2024-05-17] VITALS: Ht 175.3 cm; Wt 93.0 kg
[2024-05-17 19:58] LABS: Urine Bacteria None Seen /hpf (None Seen)
--- NOTE | 2024-05-17 20:04 | ED.PDOC ---
GI ASSESSMENT HPI Comments 48 year old male presents to the ED with a chief complaint of abdominal pain onset 2 days. Patient states he has been experiencing abdominal pain, epigastric region radiates to suprapubic region for the past 2 days. Patient is also experiencing constipation, last bowel movement was yesterday, was seen at [facility] had a CT scan with contrast and was told it was unremarkable for anything acute and he should f/u with his GI specialist. He was prescribed stool softeners. Patient [place] [facility] [place] due to sore throat and was prescribed antibiotics. He noticed abdominal pain has worsened, constipation has not improved, believes he needs to be admitted. Patient's GI is Dr. Troy, Director Of Infection Control is Dr. Pizarro. PMHx Afib, HTN, HLD, arthritis, anxiety, asthma. Denies nausea, vomiting, diarrhea, chest pain, shortness of breath, dysuria, hematuria, dizziness. No other symptoms or modifying factors present at this time. Time Seen by MD: 19:35 Primary Care Provider: JORDYN Reviewed Notes: Medications, Allergies Allergies: Coded Allergies: Acetaminophen (Verified Allergy, Unknown, 03/02/23) Amoxicillin (Verified Allergy, Unknown, 03/02/23) Codeine (Verified Allergy, Unknown, 03/02/23) Hydrocodone (Verified Allergy, Unknown, 03/24/24) Ibuprofen (Verified Allergy, Unknown, 03/02/23) Morphine (Verified Allergy, Unknown, 03/02/23) Penicillins (Verified Allergy, Unknown, 03/02/23) Statins (Verified Allergy, Unknown, 03/02/23) Tramadol (Verified Allergy, Unknown, 03/02/23) Uncoded Allergies: WALNUTS (Allergy, Unknown, 03/02/23) Home Meds Active Scripts Cyclobenzaprine Hcl (Cyclobenzaprine Hcl) 10 Mg Tab, 10 MG PO TID for 10 Days, #30 TAB Prov:ZEKE FISHER MD 04/30/24 Metoclopramide Hcl (Reglan) 10 Mg Tab, 10 MG PO BID for 14 Days, #28 TAB Prov:ZEKE FISHER MD 04/30/24 Methylprednisolone (Medrol Dosepak) 4 Mg Kvng, 4 MG PO UD, #21 TAB UAD Prov:CHRISSIE SUH 1/9/25 Promethazine Hcl (Promethazine Hcl) 25 Mg Tab, 1 TAB PO Q6HPRN for 14 Days, #56 TAB Prov:EMELYBLAIRE CHILDERS ANIMAL CARE TECHNICIAN 03/26/24 Doxycycline Hyclate (DOXYCYCLINE HYCLATE) 100 Mg Tab, 1 TAB PO BID for 10 Days, #20 TAB Prov:EMELYBLAIRE CHILDERS ANIMAL CARE TECHNICIAN 03/26/24 Sucralfate (Sucralfate) 1 Gm Tab, 1 TAB PO QID for 30 Days, #120 TAB Prov:MCKENNA ROTH MATERIAL REQUIREMENTS WORKER 11/15/23 Pantoprazole Sodium Sesquihydr (Pantoprazole Sodium) 40 Mg Tab, 1 TAB PO BID for 30 Days, #60 TAB Prov:MCKENNA ROTH MATERIAL REQUIREMENTS WORKER 11/15/23 Amiodarone HCl (Amiodarone HCl) 200 Mg Tab, 200 MG PO HS for 30 Days, #30 TAB Prov:MCKENNA ROTH MATERIAL REQUIREMENTS WORKER 10/16/23 Reported Medications Labetalol HCl (Labetalol Hydrochloride) 200 Mg Tab, 1 TAB PO BID 03/25/24 Tamsulosin HCl (Tamsulosin Hydrochloride) 0.4 Mg Cap, 0.4 MG PO DAILY, CAP 03/25/24 Beclomethasone Dipropionate (Qvar Redihaler) 80 Mcg/Act Aer, 2 PUFF IN BID, AER 03/25/24 Docusate Sodium (Colace) 100 Mg Cap, 100 MG PO DAILY PRN for FOR CONSTIPATION, CAP 03/25/24 Albuterol Sulfate (Albuterol Sulfate Hfa) 108 Mcg/Act Aer, 1 PUFF INH Q4HPRN PRN for SHORTNESS OF BREATH 03/25/24 Hydroxyzine Hcl (Hydroxyzine Hcl) 25 Mg Tab, 20 MG PO DAILY PRN for FOR ITCHING, TAB 03/25/24 Magnesium Oxide (Magnesium Oxide) 400 Mg Tab, 1 TAB PO DAILY 11/14/23 Triamcinolone Acetonide (Triamcinolone Acetonide) 0.1 % Pst, 1 APPLIC TOP BID, APPLIC both arms 10/12/23 Albuterol Sulfate (VENTOLIN MDI) 90 Mcg Ih, 90 MCG IN Q4HP, INH 10/12/23 Apixaban Base (ELIQUIS) 5 Mg Tab, 5 MG PO BID, TAB 10/12/23 Meloxicam (Meloxicam) 15 Mg Tab, 1 TAB PO DAILY@BREAKFAST, #30 TAB 2 Refills 10/12/23 Evolocumab (Repatha) 140 Mg/Ml Inj, 1 ML SC, INJ take once every 24 days 10/12/23 Hctz (Hydrochlorothiazide) 25 Mg Tab, 25 MG PO DAILY, TAB 10/12/23 Dicyclomine Hcl (Dicyclomine Hcl) 20 Mg Tab, 10 MG PO TID, MG 10/12/23 Cholecalciferol (VITAMIN D3) 2,000 Unit Tab, 1 TAB PO DAILY, #30 TAB 5 Refills 10/12/23 Pravastatin Sodium (PRAVACHOL TABLET) 20 Mg Tb, 2 TAB PO DAILY, #30 TAB 5 Refill s 10/12/23 Diphenhydramine Hcl (Banophen) 25 Mg Cap, 25 MG PO BID, CAP 10/12/23 Information Source: Patient Mode of Arrival: Ambulatory Timing: Days Duration: Since onset Prehospital treatment: None Quality: Aching, Burning Vomitus: None Severity: Moderate Recent: Antibiotics Recent Hx of: Constipation Pain Location: Epigastric, Suprapubic Modifying Factors: Nothing Associated sign and symptoms: Constipation, Abdominal Pain Past Medical History PAST MEDICAL HISTORY: AFIB, Anxiety, Arthritis, Asthma, High Lipids, HTN Surgical History: Denies all surgeries Family History Family History: Reviewed,noncontributory to illness, Unknown Social History Smoker: Non-Smoker Alcohol: Denies ETOH Use Drugs: Denies Drug Use Lives In: Home Constitutional: denies: chills, diaphoresis, fatigue, fever, malaise, sweats, weakness, others EENTM: reports: throat pain; denies: blurred vision, double vision, ear bleeding, ear discharge, ear drainage, ear pain, ear ringing, eye pain, eye redness, hearing loss, mouth pain, mouth swelling, nasal discharge, nose bleeding, nose congestion, nose pain, photophobia, tearing, throat swelling, voice changes, others Respiratory: denies: cough, hemoptysis, orthopnea, SOB at rest, shortness of breath, SOB with excertion, stridor, wheezing, others Cardiovascular: denies: chest pain, dizzy spells, diaphoresis, Dyspnea on exertion, edema, irregular heart beat, left arm pain, lightheadedness, palpitations, PND, syncope, others Gastrointestinal: reports: abdominal pain, constipated; denies: abdomen distended, blood streaked bowels, diarrhea, dysphagia, difficulty swallowing, hematemesis, melena, nausea, poor appetite, poor fluid intake, rectal bleeding, rectal pain, vomiting, others Genitourinary: denies: burning, dysuria, flank pain, frequency, hematuria, incontinence, penile discharge, penile sore, pain, testicle pain, testicle swelling, urgency, others Neurological: denies: dizziness, fainting, headache, left sided numbness, left sided weakness, numbness, paresthesia, pre-existing deficit, right sided numbness, right sided weakness, seizure, speech problems, tingling, tremors, weakness, others Musculoskeletal: reports: back pain; denies: gout, joint pain, joint swelling, muscle pain, muscle stiffness, neck pain, others Integumetry: denies: bruises, change in color, change in hair/nails, dryness, laceration, lesions, lumps, rash, wounds, others Allergic/Immunocompromised: denies: Difficulty Healing, Frequent Infections, Hives, Itching, others Hematologic/Lymphatic: denies: anemia, blood clots, easy bleeding, easy bruising, swollen glands, others Endocrine: denies: excessive hunger, excessive sweating, excessive thirst, excessive urination, flushing, intolerance to cold, intolerance to heat, unexplained weight gain, unexplained weight loss, others Psychiatric: denies: anxiety, bipolar disorder, depression, hopeless, panic disorder, schizophrenia, sleepless, suicidal, others All Other Systems: Reviewed and Negative Physical Exam General Appearance: No Apparent Distress HEENT: Other (moist mucous membranes) Neck: Full Range of Motion, Normal Inspection Respiratory: Lungs Clear, No Accessory Muscle Use, No Respiratory Distress, Normal Breath Sounds Cardiovascular: No Edema, No JVD, Regular Rate/Rhythm Breast Exam: Deferred Gastrointestinal: Distended (moderate), Epigastric, Suprapubic, Tenderness Genitalia: Deferred Pelvic: Deferred Rectal: Deferred Extremities: Normal inspection, Normal range of motion, Non-tender, No pedal edema Neurologic: Alert (Oriented x4), Normal Affect, Other (Ambulatory without difficulty. No gross focal deficit.) Cerebellar Function: NOT DONE Reflexes: NOT DONE Skin: Dry, Normal Color, Warm Lymphatic: NOT DONE Was a procedure done? Was a procedure done?: No GI differential Dx Differential Diagnosis: Bowel Obstruction, Constipation, Diverticular disease, Gastroenteritis, GI hemorrhage, Inflammatory BD, Ischemic Bowel, UTI, Dehydration, Diabetes/ DKA, Electrolyte Imbalance, Food Poisoning, Renal Failure, Stress Ulcer X-Ray, Labs, Meds, VS Vital Signs Date Time Temp Pulse Resp B/P (MAP) Pulse Ox O2 Delivery O2 Flow Rate FiO2 05/17/24 20:02 98.3 93 20 151/91 (111) 97 Lab Test 05/17/24 20:40 05/17/24 19:45 Range/Units White Blood Count 5.5 4.4-10.8 10^3/uL Red Blood Count 4.94 4.5-5.90 10^6/uL Hemoglobin 16.3 13.5-17.5 g/dL Hematocrit 47.2 41.0-53.0 % Mean Corpuscular Volume 95.5 80.0-100.0 fL Mean Corpuscular Hemoglobin 33.0 H 28.0-32.0 pg Mean Corpuscular Hemoglobin Concent 34.5 32.0-36.0 g/dL Red Cell Distribution Width 14.3 11.8-14.3 % Platelet Count 284 140-450 10^3/uL Mean Platelet Volume 6.7 L 6.9-10.8 fL Neutrophils (%) (Auto) 66.0 37.0-80.0 % Lymphocytes (%) (Auto) 20.8 10.0-50.0 % Monocytes (%) (Auto) 10.1 0.0-12.0 % Eosinophils (%) (Auto) 2.6 0.0-7.0 % Basophils (%) (Auto) 0.5 0.0-2.0 % Neutrophils # (Auto) 3.6 1.6-8.6 10 ^3/uL Lymphocytes # (Auto) 1.1 0.4-5.4 10 ^3/uL Monocytes # (Auto) 0.6 0-1.3 10 ^3/uL Eosinophils # (Auto) 0.1 0-0.8 10 ^3/uL Basophils # (Auto) 0 0-0.2 10 ^3/uL Nucleated Red Blood Cells 1.1 % Sodium Level Pending Potassium Level Pending Chloride Level Pending Carbon Dioxide Level Pending Anion Gap Pending Blood Urea Nitrogen Pending Creatinine Pending Glomerular Filtration Rate Calc Pending BUN/Creatinine Ratio Pending Serum Glucose Pending Lactic Acid Level 1.0 0.4-2.0 mmol/L Calcium Level Pending Total Bilirubin Pending Aspartate Amino Transferase (AST) Pending Alanine Aminotransferase (ALT) Pending Alkaline Phosphatase Pending Troponin I High Sensitivity 5 </=54 ng/L Total Protein Pending Albumin Pending Lipase Pending Urine Color Yellow Yellow Urine Clarity Clear Clear Urine pH 6.0 5.0-9.0 Urine Specific [place] > 1.050 H 1.001-1.035 Urine Protein 1+ H Negative Urine Ketones 1+ H Negative Urine Blood Negative Negative /uL Urine Nitrite Negative Negative Urine Bilirubin Negative Negative Urine Urobilinogen Normal Negative mg/dL Urine Leukocyte Esterase Negative Negative /uL Urine RBC 1 0 - 3 /hpf Urine Microscopic WBC < 1 0-3 /HPF Urine Squamous Epithelial Cells None seen <5 /hpf Urine Bacteria None seen None Seen /hpf Urine Glucose Normal Normal mg/dL ORDERING PHYSICIAN: YOSHI BONNER MD PROCEDURE(s): ACABD - ACUTE AB SERIES REASON: abdominal pain, constipation ORDER NUMBER(s): [id number], ACCESSION NUMBER(s): [id number] Procedure: XY ACUTE AB SERIES Exam Date: 05/17/2024 08:12 PM History: abdominal pain, constipation Comparison Study: None Technique: AP of the chest AP upright of the abdomen AP supine of the abdomen FINDINGS: No focal evidence of airspace disease. The cardiomediastinal silhouette is within normal limits. No acute osseous lesions. Nonobstructive bowel gas pattern noted. There is no evidence for pneumoperitoneum. No abnormal calcifications noted. IMPRESSION: Non-specific gas-filled loops of bowel. Large stool burden END IMPRESSION: ATED BY: CLINT FIGUEROA MD DICTATED DATE/TIME: 05/17/242027 SIGNED BY: CLINT FIGUEROA MD SIGNED DATE/TIME: 05/17/242027 X-Ray, Labs, Meds, VS Comment 48-year-old male with a history of hypertension, hyperlipidemia, AFib and chronic intermittent abdominal pain presenting to ED with recurrent abdominal pain. This is the patient's 3rd visit to an ED within the last 2 days. Vitals remarkable for BP 151/91 Exam remarkable for epigastric, mid abdominal, and suprapubic tenderness to palpation, and moderate abdominal distention Rhythm strip independently interpreted by me: AFib, rate 91, no ectopy. Acute abdominal series: IMPRESSION: Non-specific gas-filled loops of bowel. Large stool burden CBC unremarkable, CMP, lipase, UA unremarkable, troponin negative Patient treated with the following in the ED: Viscous lidocaine 10 mL, 10 mL, Maalox 30 mL p.o., Protonix 40 mg IV, magnesium citrate 300 mg p.o. On re-evaluation, patient states he is still having abdominal pain. Plan is to admit the patient for GI evaluation. Time of 1ST Reevaluation: 19:55 Reevaluation 1ST: Unchanged Patient Education/Counseling: Diagnosis, Treatment, Prognosis Family Education/Counseling: No Family Present Additional Information The following tests were ordered, and results were reviewed by me: TROP -x3, CBC, CMP, LIPASE, UA, XY ACUTE AB SERIES, I reviewed and agreed with the following test results read by other providers: XY ACUTE AB SERIES, I discussed treatment and results with medical personnel and: patient Departure 1 Departure Time of Disposition: 21:50 Impression: Primary Impression: Intractable abdominal pain Additional Impression: Constipation Qualified Codes: K59.00 - Constipation, unspecified Disposition: ADMITTED INPATIENT Admit to: Med Surg Condition: Fair Critical Care Note Critical Care Time?: No Stability Stability form required: No Heart Score Heart Score: Heart Score Response (Comments) Value History N/A 0 EKG N/A 0 Age N/A 0 Risk Factors N/A 0 Troponin N/A 0 Total 0 I personally scribed for YOSHI BONNER MD ([email or web address]) on 05/17/24 at 20:04. Electronically submitted by Luann Rogers ([email or web address]). I personally scribed for YOSHI BONNER MD ([email or web address]) on 05/17/24 at 20:13. Electronically submitted by Luann Rogers ([email or web address]). I personally scribed for YOSHI BONNER MD ([email or web address]) on 05/17/24 at 20:33. Electronically submitted by Luann Rogers ([email or web address]). YOSHI BONNER MD May 17, 2024 20:04
--- NOTE | 2024-05-17 20:30 | DVH ---
Procedure: XY ACUTE AB SERIES Exam Date: 05/17/2024 08:12 PM History: abdominal pain, constipation Comparison Study: None Technique: AP of the chest AP upright of the abdomen AP supine of the abdomen FINDINGS: No focal evidence of airspace disease. The cardiomediastinal silhouette is within normal limits. No acute osseous lesions. Nonobstructive bowel gas pattern noted. There is no evidence for pneumoperitoneum. No abnormal calci fications noted. IMPRESSION: Non-specific gas-filled loops of bowel. Large stool burden END IMPRESSION:
[2024-05-17 20:44] LABS: Urine Blood Negative /uL (Negative); Urine Clarity Clear (Clear); Urine Color Yellow (Yellow); Urine Protein, UAD 1+ (Negative); Urine Squamous Epithelial Cell None Seen /hpf (<5); Urine Urobilinogen Normal (Negative); Urine WBC < 1 /HPF (0-3)
[2024-05-17 20:48] LABS: Urine Specific Gravity > 1.050 (1.001-1.035)
[2024-05-17 20:53] LABS: Basophils # (auto) 0 10 ^3/uL (0-0.2); Basophils % (auto) 0.5 % (0.0-2.0); Eosinophils # (auto) 0.1 10 ^3/uL (0-0.8); Eosinophils % (auto) 2.6 % (0.0-7.0); Hematocrit 47.2 % (41.0-53.0); Hemoglobin 16.3 g/dL (13.5-17.5); Lymphocytes # (auto) 1.1 10 ^3/uL (0.4-5.4); Lymphocytes % (auto) 20.8 % (10.0-50.0); Mean Corpuscular Hgb Conc. 34.5 g/dL (32.0-36.0); Mean Corpuscular Volume 95.5 fL (80.0-100.0); Monocytes # (auto) 0.6 10 ^3/uL (0-1.3); Monocytes % (auto) 10.1 % (0.0-12.0); Neutrophils # (auto) 3.6 10 ^3/uL (1.6-8.6); Nucleated Red Blood Cells % 1.1 %; Platelet Count (auto) 284 10^3/uL (140-450); Red Blood Cells 4.94 10^6/uL (4.5-5.90); Red Cell Distribution Width 14.3 % (11.8-14.3); White Blood Cell 5.5 10^3/uL (4.4-10.8)
[2024-05-17 21:31] LABS: Alanine Aminotransferase 33 U/L (7-40); Alkaline Phosphatase 89 U/L (46-116); Anion Gap 12 (5-15); Aspartate Aminotransferase 29 U/L (13-40); BUN/Creatinine Ratio 17.4 (10.0-20.0); Bilirubin, Total 0.8 mg/dL (0.2-1.0); Blood Urea Nitrogen 20 mg/dL (9-23); Carbon Dioxide 23 mmol/L (20-31); Chloride 103 mmol/L (98-107); Lipase 46 U/L (12-53); Potassium 3.5 mmol/L (3.5-5.1); Sodium 138 mmol/L (136-145); Total Protein 7.8 g/dL (5.7-8.2)
[2024-05-17 21:39] LABS: Albumin 5.3 g/dL (3.2-4.8); Calcium 10.6 mg/dL (8.7-10.4); Glucose 111 mg/dL (74-106)
--- NOTE | 2024-05-17 22:39 | DVHHP2 ---
History of Present Illness Home Meds Active Scripts Cyclobenzaprine Hcl (Cyclobenzaprine Hcl) 10 Mg Tab, 10 MG PO TID for 10 Days, #30 TAB Prov:ZEKE FISHER MD 04/30/24 Metoclopramide Hcl (Reglan) 10 Mg Tab, 10 MG PO BID for 14 Days, #28 TAB Prov:ZEKE FISHER MD 04/30/24 Methylprednisolone (Medrol Dosepak) 4 Mg Kvng, 4 MG PO UD, #21 TAB UAD Prov:CHRISSIE SUH 04/13/24 Promethazine Hcl (Promethazine Hcl) 25 Mg Tab, 1 TAB PO Q6HPRN for 14 Days, #56 TAB Prov:BLAIRE MCLEOD [employer]ITE KID BUFFER 03/26/24 Doxycycline Hyclate (DOXYCYCLINE HYCLATE) 100 Mg Tab, 1 TAB PO BID for 10 Days, #20 TAB Prov:BLAIRE MCLEOD [employer] KID BUFFER 03/26/24 Sucralfate (Sucralfate) 1 Gm Tab, 1 TAB PO QID for 30 Days, #120 TAB Prov:MCKENNA ROTH NP 11/15/23 Pantoprazole Sodium Sesquihydr (Pantoprazole Sodium) 40 Mg Tab, 1 TAB PO BID for 30 Days, #60 TAB Prov:MCKENNA ROTH NP 11/15/23 Amiodarone HCl (Amiodarone HCl) 200 Mg Tab, 200 MG PO HS for 30 Days, #30 TAB Prov:MCKENNA ROTH APPLIANCE REPAIR TECHNICIAN 10/16/23 Reported Medications Ketoconazole (Ketoconazole) 2 % Cre, 1 APPLIC TOP BID, #60 GRAMS 1 Refill 05/18/24 Clotrimazole (Clotrimazole) 1 % Cre, 1 APPLIC TOP Q12HR for 30 Days, APPLIC 05/18/24 Amlodipine Besylate (Amlodipine Besylate) 5 Mg Tab, 10 MG PO DAILY for 30 Days, MG 05/18/24 Atogepant (Qulipta) 60 Mg Tab, 60 MG PO, TAB 05/18/24 Metronidazole (Flagyl) 500 Mg Tab, 500 MG PO Q8HR, MG 05/18/24 Hydroxyzine HCl (Hydroxyzine Hydrochloride) 10 Mg Tab, 20 MG PO DAILYP, TAB 05/18/24 Amiodarone Hcl (Amiodarone Hcl) 200 Mg Tab, 100 MG PO BID 05/18/24 Labetalol HCl (Labetalol Hydrochloride) 200 Mg Tab, 1 TAB PO BID 03/25/24 Tamsulosin HCl (Tamsulosin Hydrochloride) 0.4 Mg Cap, 0.4 MG PO DAILY, CAP 03/25/24 Beclomethasone Dipropionate (Qvar Redihaler) 80 Mcg/Act Aer, 2 PUFF IN BID, AER 03/25/24 Docusate Sodium (Colace) 100 Mg Cap, 100 MG PO BID PRN for FOR CONSTIPATION, CAP 03/25/24 Albuterol Sulfate (Albuterol Sulfate Hfa) 108 Mcg/Act Aer, 1 PUFF INH Q4HPRN PRN for SHORTNESS OF BREATH 03/25/24 Hydroxyzine Hcl (Hydroxyzine Hcl) 25 Mg Tab, 20 MG PO DAILY PRN for FOR ITCHING, TAB 03/25/24 Magnesium Oxide (Magnesium Oxide) 400 Mg Tab, 1 TAB PO DAILY 11/14/23 Triamcinolone Acetonide (Triamcinolone Acetonide) 0.1 % Pst, 1 APPLIC TOP BID, APPLIC both arms 10/12/23 Albuterol Sulfate (VENTOLIN MDI) 90 Mcg Ih, 90 MCG IN Q4HP, INH 10/12/23 Apixaban Base (ELIQUIS) 5 Mg Tab, 5 MG PO BID, TAB 10/12/23 Meloxicam (Meloxicam) 15 Mg Tab, 1 TAB PO DAILY@BREAKFAST, #30 TAB 2 Refills 10/12/23 Evolocumab (Repatha) 140 Mg/Ml Inj, 1 ML SC, INJ take once every 24 days 10/12/23 Hctz (Hydrochlorothiazide) 25 Mg Tab, 25 MG PO DAILY, TAB 10/12/23 Dicyclomine Hcl (Dicyclomine Hcl) 20 Mg Tab, 10 MG PO TID, MG 10/12/23 Cholecalciferol (VITAMIN D3) 2,000 Unit Tab, 1 TAB PO DAILY, #30 TAB 5 Refills 10/12/23 Pravastatin Sodium (PRAVACHOL TABLET) 20 Mg Tb, 2 TAB PO DAILY, #30 TAB 5 Refills 10/12/23 Diphenhydramine Hcl (Banophen) 25 Mg Cap, 25 MG PO BID, CAP 7/9/24 Past Medical History Patient Family History: Diabetes mellitus G8 FATHER, H&P Exam Vital Signs Vital Signs Date Time Temp Pulse Resp B/P (MAP) Pulse Ox O2 Delivery O2 Flow Rate FiO2 05/17/24 20:02 98.3 93 20 151/91 (111) 97 Labs/Xrays Labs Test 05/17/24 21:33 05/17/24 20:40 05/17/24 19:45 Range/Units Troponin I High Sensitivity 4 </=54 ng/L White Blood Count 5.5 4.4-10.8 10^3/uL Red Blood Count 4.94 4.5-5.90 10^6/uL Hemoglobin 16.3 13.5-17.5 g/dL Hematocrit 47.2 41.0-53.0 % Mean Corpuscular Volume 95.5 80.0-100.0 fL Mean Corpuscular Hemoglobin 33.0 H 28.0-32.0 pg Mean Corpuscular Hemoglobin Concent 34.5 32.0-36.0 g/dL Red Cell Distribution Width 14.3 11.8-14.3 % Platelet Count 284 140-450 10^3/uL Mean Platelet Volume 6.7 L 6.9-10.8 fL Neutrophils (%) (Auto) 66.0 37.0-80.0 % Lymphocytes (%) (Auto) 20.8 10.0-50.0 % Monocytes (%) (Auto) 10.1 0.0-12.0 % Eosinophils (%) (Auto) 2.6 0.0-7.0 % Basophils (%) (Auto) 0.5 0.0-2.0 % Neutrophils # (Auto) 3.6 1.6-8.6 10 ^3/uL Lymphocytes # (Auto) 1.1 0.4-5.4 10 ^3/uL Monocytes # (Auto) 0.6 0-1.3 10 ^3/uL Eosinophils # (Auto) 0.1 0-0.8 10 ^3/uL Basophils # (Auto) 0 0-0.2 10 ^3/uL Nucleated Red Blood Cells 1.1 % Sodium Level 138 136-145 mmol/L Potassium Level 3.5 3.5-5.1 mmol/L Chloride Level 103 98-107 mmol/L Carbon Dioxide Level 23 20-31 mmol/L Anion Gap 12 5-15 Blood Urea Nitrogen 20 9-23 mg/dL Creatinine 1.15 0.700-1.30 mg/dL Glomerular Filtration Rate Calc 78 >90 mL/min BUN/Creatinine Ratio 17.4 10.0-20.0 Serum Glucose 111 H 74-106 mg/dL Lactic Acid Level 1.0 0.4-2.0 mmol/L Calcium Level 10.6 H 8.7-10.4 mg/dL Total Bilirubin 0.8 0.2-1.0 mg/dL Aspartate Amino Transferase (AST) 29 13-40 U/L Alanine Aminotransferase (ALT) 33 7-40 U/L Alkaline Phosphatase 89 46-116 U/L Total Protein 7.8 5.7-8.2 g/dL Albumin 5.3 H 3.2-4.8 g/dL Lipase 46 12-53 U/L Urine Color Yellow Yellow Urine Clarity Clear Clear Urine pH 6.0 5.0-9.0 Urine Specific [place] > 1.050 H 1.001-1.035 Urine Protein 1+ H Negative Urine Ketones 1+ H Negative Urine Blood Negative Negative /uL Urine Nitrite Negative Negative Urine Bilirubin Negative Negative Urine Urobilinogen Normal Negative mg/dL Urine Leukocyte Esterase Negative Negative /uL Urine RBC 1 0 - 3 /hpf Urine Microscopic WBC < 1 0-3 /HPF Urine Squamous Epithelial Cells None seen <5 /hpf Urine Bacteria None seen None Seen /hpf Urine Glucose Normal Normal mg/dL MCKENNA ROTH NP May 17, 2024 22:39
[2024-05-17] MEDS ORDERED: DOCUSATE SOD 100 MG CAP PO PRN (22:45)
[2024-05-17] MEDS ORDERED: ONDANSETRON HCL 4 MG/2 ML VIAL IV PRN (22:45)
[2024-05-17] MEDS ORDERED: ALBUTEROL SULF 2.5 MG/0.5ML(0.5%) NEB SOLN NEB PRN (23:15)
[2024-05-17 23:42] VITALS: PULSE 95; RESP 19; O2SAT 100
[2024-05-17] MEDS: PANTOPRAZOLE 40 MG/10 ML VIAL INJ IV ONE (23:49)
[2024-05-17] MEDS: MAGNESIUM CITRATE SOLUTION 300 ML BTL PO ONE (23:50)
[2024-05-17] MEDS: LIDOCAINE VISCOUS 2% 15ML UD PO ONE (23:50)
[2024-05-17] MEDS: DONNATAL 5ml ORAL Elix (BELLADONNA ALK-PHENOBARB) PO ONE (23:50)
[2024-05-17] MEDS: MAALOX PLUS or MAALOX 30 ML PO ONE (23:50)
[2024-05-18] VITALS (11 sets, daily range): BP systolic 130–148; BP diastolic 79–95; PULSE 73–90; RESP 16–20; TEMP 98–99; O2SAT 93–98
[2024-05-18] MEDS ORDERED: ALBUTEROL MEDNEB 2.5 mg/3ml NEB NEB PRN (02:00)
[2024-05-18] MEDS: SUCRALFATE 1 GM/10 ML ORAL SUSP PO SCH (06:44)
[2024-05-18] MEDS: HYDROmorphone HCL 2 MG/ML VL/or syr IV PRN (08:30)
[2024-05-18] MEDS ORDERED: HYDR-5028 PO (08:40)
[2024-05-18] MEDS ORDERED: AMLO1TAB22 PO (08:40)
[2024-05-18] MEDS ORDERED: KETO2CRE4 TOP (08:40)
[2024-05-18] MEDS ORDERED: METR-344 PO (08:40)
[2024-05-18] MEDS ORDERED: ATOG60TA PO (08:40)
[2024-05-18] MEDS ORDERED: AMIO200T33 PO (08:40)
[2024-05-18] MEDS ORDERED: CLOT1CRE51 TOP (08:40)
[2024-05-18] MEDS: TAMSULOSIN HYDROCHLORIDE 0.4 MG CAP PO SCH (09:49)
[2024-05-18] MEDS: PANTOPRAZOLE 40 MG/10 ML VIAL INJ IV SCH (09:49)
[2024-05-18] MEDS: LABETALOL HCL 200 MG TAB PO SCH (09:50)
[2024-05-18] MEDS: PRAVASTATIN SODIUM 20 MG TAB PO SCH (09:52)
[2024-05-18] MEDS ORDERED: ENOXAPARIN SOD 40 MG/0.4 ML SYRINGE SC SCH (10:00)
[2024-05-18] MEDS: APIXABAN 5 MG TAB PO SCH (10:05)
--- NOTE | 2024-05-18 12:07 | DVHPN2 ---
Progress Note - Dictate Date Seen: May 18, 2024 Medical Necessity Reason Pt with a Central, PICC or Fol: No vital signs Vital Sign Date Time Temp Pulse Resp B/P (MAP) Pulse Ox O2 Delivery O2 Flow Rate FiO2 05/18/24 10:00 98 Room Air* 0 21 05/18/24 09:50 80 137/80 05/18/24 09:00 98.3 18 98.3 medications Current Medications Medications Dose Ordered Sig/Yesenia Route Start Time Stop Time Status Last Admin Dose Admin Temazepam 15 mg QHSP PRN PO 05/17/24 22:45 Ondansetron HCl 4 mg Q4HP PRN IV 05/17/24 22:45 Docusate Sodium 100 mg BIDPRN PRN PO 05/17/24 22:45 Nitroglycerin 0.4 mg Q5MINP PRN SL 05/17/24 22:45 Hydromorphone HCl 0.25 mg Q4HPRN PRN IV 05/17/24 22:45 05/18/24 08:30 0.25 MG Pantoprazole Sodium 40 mg BID IV 05/18/24 10:00 05/18/24 09:49 40 MG Sucralfate 1 gm QID PO 05/18/24 06:00 05/18/24 11:01 1 GM Amiodarone HCl 200 mg HS PO 05/18/24 22:00 Apixaban 5 mg BID PO 05/18/24 10:00 05/18/24 10:05 5 MG Labetalol HCl 200 mg BID PO 05/18/24 10:00 05/18/24 09:50 200 MG Pravastatin Sodium 40 mg DAILY PO 05/18/24 10:00 Tamsulosin HCl 0.4 mg DAILY PO 05/18/24 10:00 05/18/24 09:49 0.4 MG Albuterol 2.5 mg Q4HPRN PRN NEB 05/17/24 23:15 objective General Appearance: alert, no distress HEENT: EOMI, PERRLA, normal external inspect of ears, no icterus, no nasal drainage Neck: no carotid bruit, no jugular venous distention (JVD), no lymphadenopathy Chest: normal thorax Respiratory: clear to auscultation, normal air movement Cardiovascular: regular rate and rhythm, no diastolic murmur, no jugular venous distention (JVD), no rub, no systolic murmur Abdominal: soft, no hepatomegaly, no mass, no splenomegaly, no tenderness Genitourinary: grossly normal external Musculoskeletal: no joint tenderness, no swelling Extremities: normal pulses, no calf tenderness, no clubbing, no cyanosis, no edema Skin: no bruising, no jaundice, no rash Neurological: alert, No focal deficit laboratory and microbiology Laboratory Tests 05/17/24 20:40 Test 05/17/24 20:40 Range/Units Serum Glucose 111 H 74-106 mg/dL Problem List 1. Abdominal pain r/t constipation Monitor, GI consult, carafate, cathartics 2. GERD Monitor, GI consult 3. HLD Monitor, DVT prophylaxis 4. Anxiety Monitor, restart home meds Assessment/Plan Subjective Patient is awake and alert. Objective Patient was admitted for abdominal pain. Patient was recently discharged from [facility]. Patient is stating his upper endoscopy was rescheduled for August and that he has persistent abdominal pain. Patient does have multiple drug allergies. Patient was previously seen by GI. Patient was started on Protonix twice a day as well as Carafate 4 times a day. Plan Cardiology consult. Patient is on chronic anticoagulation. Hold Eliquis for now. Pending possible upper endoscopy by Dr. Troy. Continue PPI. DVT prophylaxis. Monitor daily labs. Plan discussed with: Patient, Other MCKENNA ROTH NP May 18, 2024 12:07
[2024-05-18] MEDS: metroNIDAZOLE 500 MG TAB PO SCH (14:24)
[2024-05-18] MEDS: POLYETHYLENE GLYCOL 17 GM PWDR PO SCH (14:24)
[2024-05-18] MEDS: METOCLOPRAMIDE HCL 10 MG TAB PO SCH (14:24)
[2024-05-18] MEDS: AMIODARONE HCL 200 MG TAB PO SCH (22:10)
--- NOTE | 2024-05-18 22:46 | DVHHP2 ---
Admitting Diagnosis: Abdominal pain History of Present Illness 48 yo male patient with hx of A-fib, HTN, HLD, arthritis, anemia, and anxiety c/o epigastric abdominal pain that radiates to his suprapubic region x 2 days. Patient sts to have constipation with his last BM being yesterday. PAtient reports that he was recently at [place] where he had a CT done and was told everything was normal. While in the emergency department the patient was evaluated by the provider, As per provider: Labs, vital signs, and imagining monitored. Patient will be admitted for further evaluation and treatment. I discussed admission with the patient/family and is in agreement to treatment plan. Patient Family History: Diabetes mellitus G8 FATHER, Allergies: Coded Allergies: Acetaminophen (Verified Allergy, Unknown, 03/02/23) Amoxicillin (Verified Allergy, Unknown, 03/02/23) Codeine (Verified Allergy, Unknown, 03/02/23) Hydrocodone (Verified Allergy, Unknown, 03/24/24) Ibuprofen (Verified Allergy, Unknown, 03/02/23) Morphine (Verified Allergy, Unknown, 03/02/23) Penicillins (Verified Allergy, Unknown, 03/02/23) Statins (Verified Allergy, Unknown, 03/02/23) Tramadol (Verified Allergy, Unknown, 03/02/23) Uncoded Allergies: WALNUTS (Allergy, Unknown, 03/02/23) Home Meds Active Scripts Cyclobenzaprine Hcl (Cyclobenzaprine Hcl) 10 Mg Tab, 10 MG PO TID for 10 Days, #30 TAB Prov:ZEKE FISHER MD 04/30/24 Metoclopramide Hcl (Reglan) 10 Mg Tab, 10 MG PO BID for 14 Days, #28 TAB Prov:ZEKE FISHER MD 04/30/24 Methylprednisolone (Medrol Dosepak) 4 Mg Kvng, 4 MG PO UD, #21 TAB UAD Prov:CHRISSIE SUH 04/13/24 Promethazine Hcl (Promethazine Hcl) 25 Mg Tab, 1 TAB PO Q6HPRN for 14 Days, #56 TAB Prov:BLAIRE MCLEOD [facility] 03/26/24 Doxycycline Hyclate (DOXYCYCLINE HYCLATE) 100 Mg Tab, 1 TAB PO BID for 10 Days, #20 TAB Prov:BLAIRE MCLEOD 03/26/24 Sucralfate (Sucralfate) 1 Gm Tab, 1 TAB PO QID for 30 Days, #120 TAB Prov:MCKENNA ROTH DIVER TENDER 11/15/23 Pantoprazole Sodium Sesquihydr (Pantoprazole Sodium) 40 Mg Tab, 1 TAB PO BID for 30 Days, #60 TAB Prov:MCKENNA ROTH DIVER TENDER 11/15/23 Amiodarone HCl (Amiodarone HCl) 200 Mg Tab, 200 MG PO HS for 30 Days, #30 TAB Prov:MCKENNA ROTH DIVER TENDER 10/16/23 Reported Medications Ketoconazole (Ketoconazole) 2 % Cre, 1 APPLIC TOP BID, #60 GRAMS 1 Refill 05/18/24 Clotrimazole (Clotrimazole) 1 % Cre, 1 APPLIC TOP Q12HR for 30 Days, APPLIC 05/18/24 Amlodipine Besylate (Amlodipine Besylate) 5 Mg Tab, 10 MG PO DAILY for 30 Days, MG 05/18/24 Atogepant (Qulipta) 60 Mg Tab, 60 MG PO, TAB 05/18/24 Metronidazole (Flagyl) 500 Mg Tab, 500 MG PO Q8HR, MG 05/18/24 Hydroxyzine HCl (Hydroxyzine Hydrochloride) 10 Mg Tab, 20 MG PO DAILYP, TAB 05/18/24 Amiodarone Hcl (Amiodarone Hcl) 200 Mg Tab, 100 MG PO BID 05/18/24 Labetalol HCl (Labetalol Hydrochloride) 200 Mg Tab, 1 TAB PO BID 03/25/24 Tamsulosin HCl (Tamsulosin Hydrochloride) 0.4 Mg Cap, 0.4 MG PO DAILY, CAP 03/25/24 Beclomethasone Dipropionate (Qvar Redihaler) 80 Mcg/Act Aer, 2 PUFF IN BID, AER 03/25/24 Docusate Sodium (Colace) 100 Mg Cap, 100 MG PO BID PRN for FOR CONSTIPATION, CAP 03/25/24 Albuterol Sulfate (Albuterol Sulfate Hfa) 108 Mcg/Act Aer, 1 PUFF INH Q4HPRN PRN for SHORTNESS OF BREATH 03/25/24 Hydroxyzine Hcl (Hydroxyzine Hcl) 25 Mg Tab, 20 MG PO DAILY PRN for FOR ITCHING, TAB 03/25/24 Magnesium Oxide (Magnesium Oxide) 400 Mg Tab, 1 TAB PO DAILY 11/14/23 Triamcinolone Acetonide (Triamcinolone Acetonide) 0.1 % Pst, 1 APPLIC TOP BID, APPLIC both arms 10/12/23 Albuterol Sulfate (VENTOLIN MDI) 90 Mcg Ih, 90 MCG IN Q4HP, INH 10/12/23 Apixaban Base (ELIQUIS) 5 Mg Tab, 5 MG PO BID, TAB 10/12/23 Meloxicam (Meloxicam) 15 Mg Tab, 1 TAB PO DAILY@BREAKFAST, #30 TAB 2 Refills 10/12/23 Evolocumab (Repatha) 140 Mg/Ml Inj, 1 ML SC, INJ take once every 24 days 10/12/23 Hctz (Hydrochlorothiazide) 25 Mg Tab, 25 MG PO DAILY, TAB 10/12/23 Dicyclomine Hcl (Dicyclomine Hcl) 20 Mg Tab, 10 MG PO TID, MG 10/12/23 Cholecalciferol (VITAMIN D3) 2,000 Unit Tab, 1 TAB PO DAILY, #30 TAB 5 Refills 10/12/23 Pravastatin Sodium (PRAVACHOL TABLET) 20 Mg Tb, 2 TAB PO DAILY, #30 TAB 5 Refills 10/12/23 Diphenhydramine Hcl (Banophen) 25 Mg Cap, 25 MG PO BID, CAP 10/12/23 Current Medications Current Medications Medications (Trade) Dose Ordered Sig/Yesenia Route PRN Reason Start Time Stop Time Status Last Admin Temazepam (Restoril) 15 mg QHSP PRN PO FOR INSOMNIA 05/17/24 22:45 Ondansetron HCl (Zofran) 4 mg Q4HP PRN IV NAUSEA / VOMITING 05/17/24 22:45 Docusate Sodium (Colace Capsule) 100 mg BIDPRN PRN PO FOR CONSTIPATION 05/17/24 22:45 Enoxaparin Sodium (Lovenox) 40 mg DAILY SC 05/18/24 10:00 05/18/24 09:47 DC Nitroglycerin (Ntrostat Sublingual) 0.4 mg Q5MINP PRN SL FOR CHEST PAIN 05/17/24 22:45 Hydromorphone HCl (Dilaudid Injection) 0.25 mg Q4HPRN PRN IV PAIN SCALE 7 THRU 10 05/17/24 22:45 05/18/24 08:30 Pantoprazole Sodium (Protonix) 40 mg BID IV 05/18/24 10:00 05/18/24 09:49 Sucralfate (Carafate Susp) 1 gm QID PO 05/18/24 06:00 05/18/24 17:44 Albuterol (Ventolin Medneb) 2.5 mg Q4HP PRN NEB SHORTNESS OF BREATH 05/18/24 02:00 05/17/24 23:03 DC Amiodarone HCl (Cordarone Tablet) 200 mg HS PO 05/18/24 22:00 Apixaban (Eliquis) 5 mg BID PO 05/18/24 10:00 05/18/24 12:45 DC 05/18/24 10:05 Labetalol HCl (Normodyne Tablet) 200 mg BID PO 05/18/24 10:00 05/18/24 09:50 Pravastatin Sodium (Pravachol Tablet) 40 mg DAILY PO 05/18/24 10:00 05/18/24 12:45 DC Tamsulosin HCl (Flomax) 0.4 mg DAILY PO 05/18/24 10:00 05/18/24 09:49 Albuterol (Ventolin Medneb) 2.5 mg Q4HPRN PRN NEB SHORTNESS OF BREATH 05/17/24 23:15 Polyethylene Glycol (Miralax 17GM Powder) 17 gm DAILY PO 05/18/24 12:15 05/18/24 14:24 Metronidazole (Flagyl Tablet) 500 mg Q8HR PO 05/18/24 14:00 05/18/24 14:24 Metoclopramide HCl (Reglan Tablet) 5 mg Q8HR PO 05/18/24 14:00 05/18/24 14:24 Cyclobenzaprine HCl (Flexeril Tablet) 5 mg Q8HPRN PRN PO FOR MUSCLE SPASM 05/18/24 12:45 Review of Systems Constitutional: denies chills, denies fever, denies malaise Eyes: denies eye pain, denies vision change ENT: denies ear pain, denies headache, denies nasal congestion, denies painful swallowing, denies voice change Cardiovascular: denies chest pain, denies edema, denies orthopnea, denies palpitations, denies paroxysmal nocturnal dyspnea Respiratory: denies cough, denies shortness of breath Gastrointestinal: denies constipation, denies diarrhea, denies nausea, denies vomiting Genitourinary: denies dysuria, denies frequent urination, denies urethral discharge Musculoskeletal: denies back pain, denies joint pain, denies muscle pain Skin: denies bruising, denies itching, denies rash Neurological: denies focal weakness, denies headache, denies sensory changes Psychiatric: denies anxiety, denies depression Endocrine: denies polydipsia, denies polyuria Hematologic/Lymphatic: denies easy bleeding, denies easy bruising, denies enlarged lymph nodes Allergic/Immunologic: denies allergy, denies hives Vital Signs Vital Signs Date Time Temp Pulse Resp B/P (MAP) Pulse Ox O2 Delivery O2 Flow Rate FiO2 05/18/24 21:58 98.3 73 19 142/82 (102) 98 98.3 05/18/24 18:08 Room Air 05/18/24 18:08 0 21 21 Physical Exam General Appearance: alert, no distress HEENT: EOMI, PERRLA, normal external inspect of ears, no icterus, no nasal drainage Neck: no carotid bruit, no jugular venous distention (JVD), no lymphadenopathy Chest: normal thorax Respiratory: clear to auscultation, normal air movement Cardiovascular: regular rate and rhythm, no diastolic murmur, no jugular venous distention (JVD), no rub, no systolic murmur Abdominal: soft, no hepatomegaly, no mass, no splenomegaly, no tenderness Genitourinary: grossly normal external Musculoskeletal: no joint tenderness, no swelling Extremities: normal pulses, no calf tenderness, no clubbing, no cyanosis, no edema Skin: no bruising, no jaundice, no rash Neurological: alert, No focal deficit Results Labs Test 05/17/24 21:33 05/17/24 20:40 05/17/24 19:45 Range/Units Troponin I High Sensitivity 4 </=54 ng/L White Blood Count 5.5 4.4-10.8 10^3/uL Red Blood Count 4.94 4.5-5.90 10^6/uL Hemoglobin 16.3 13.5-17.5 g/dL Hematocrit 47.2 41.0-53.0 % Mean Corpuscular Volume 95.5 80.0-100.0 fL Mean Corpuscular Hemoglobin 33.0 H 28.0-32.0 pg Mean Corpuscular Hemoglobin Concent 34.5 32.0-36.0 g/dL Red Cell Distribution Width 14.3 11.8-14.3 % Platelet Count 284 140-450 10^3/uL Mean Platelet Volume 6.7 L 6.9-10.8 fL Neutrophils (%) (Auto) 66.0 37.0-80.0 % Lymphocytes (%) (Auto) 20.8 10.0-50.0 % Monocytes (%) (Auto) 10.1 0.0-12.0 % Eosinophils (%) (Auto) 2.6 0.0-7.0 % Basophils (%) (Auto) 0.5 0.0-2.0 % Neutrophils # (Auto) 3.6 1.6-8.6 10 ^3/uL Lymphocytes # (Auto) 1.1 0.4-5.4 10 ^3/uL Monocytes # (Auto) 0.6 0-1.3 10 ^3/uL Eosinophils # (Auto) 0.1 0-0.8 10 ^3/uL Basophils # (Auto) 0 0-0.2 10 ^3/uL Nucleated Red Blood Cells 1.1 % Sodium Level 138 136-145 mmol/L Potassium Level 3.5 3.5-5.1 mmol/L Chloride Level 103 98-107 mmol/L Carbon Dioxide Level 23 20-31 mmol/L Anion Gap 12 5-15 Blood Urea Nitrogen 20 9-23 mg/dL Creatinine 1.15 0.700-1.30 mg/dL Glomerular Filtration Rate Calc 78 >90 mL/min BUN/Creatinine Ratio 17.4 10.0-20.0 Serum Glucose 111 H 74-106 mg/dL Lactic Acid Level 1.0 0.4-2.0 mmol/L Calcium Level 10.6 H 8.7-10.4 mg/dL Total Bilirubin 0.8 0.2-1.0 mg/dL Aspartate Amino Transferase (AST) 29 13-40 U/L Alanine Aminotransferase (ALT) 33 7-40 U/L Alkaline Phosphatase 89 46-116 U/L Total Protein 7.8 5.7-8.2 g/dL Albumin 5.3 H 3.2-4.8 g/dL Lipase 46 12-53 U/L Urine Color Yellow Yellow Urine Clarity Clear Clear Urine pH 6.0 5.0-9.0 Urine Specific [place] > 1.050 H 1.001-1.035 Urine Protein 1+ H Negative Urine Ketones 1+ H Negative Urine Blood Negative Negative /uL Urine Nitrite Negative Negative Urine Bilirubin Negative Negative Urine Urobilinogen Normal Negative mg/dL Urine Leukocyte Esterase Negative Negative /uL Urine RBC 1 0 - 3 /hpf Urine Microscopic WBC < 1 0-3 /HPF Urine Squamous Epithelial Cells None seen <5 /hpf Urine Bacteria None seen None Seen /hpf Urine Glucose Normal Normal mg/dL Plan 1. Abdominal pain r/t constipation Monitor, GI consult, carafate, cathartics 2. GERD Monitor, GI consult 3. HLD Monitor, DVT prophylaxis 4. Anxiety Monitor, restart home meds Plan discussed with: Patient, Other MCKENNA ROTH NP May 18, 2024 22:46
[2024-05-19] VITALS (12 sets, daily range): BP systolic 104–142; BP diastolic 59–90; PULSE 16–79; RESP 17–19; TEMP 97.7–98.7; O2SAT 95–97
[2024-05-19] MEDS ORDERED: MECLIZINE HCL 25 MG TAB PO PRN (11:45)
--- NOTE | 2024-05-19 12:09 | DVHINCON2 ---
GI Consult Consult Note GI consult note Date of Consultation: 05/19/2024 Chief Complaint: GERD/PUD Referring Physician: Kwabena GARCIA H&P: 48-year-old male with PMH of AFib,, hypertension HLD, arthritis, presented to ER with complains of abdominal pain Patient complains of burning epigastric pain, that radiates to suprapubic area, on and off for three months Patient also complaining of chest pain, pending cardiac consult Patient has history of GERD and reflux. No treatment with PPI. No nausea or vomiting No hematemesis Patient has constipation, last BM two days ago. No melena or red blood in stool. Patient has history of hemorrhoids and has rectal burning Patient takes Eliquis which has been stopped on Wednesday SP EGD colonoscopy 1991, with polyp removal Patient was seen at [facility] with complains of sore throat and was prescribed anti biotics Past Medical History: AFIB, Anxiety, Arthritis, Asthma, High Lipids, HTN Past Surgical History: Denies Social History: NO smoking, drinking ETOH and use of illegal drugs. Family History: Noncontributory Review of Systems: Constitutional: no fever, chill, weight loss HEENT: no eye pain, no hearing loss, no oral lesion, no scleral icterus Heart: +chest pain, no chest pressure Lung: no cough, no dyspnea with exertion Abdomen: see HPI Physical exam: General: NAD, AAOX3 Chest: lung andre clear to auscultation Heart: RRR, no murmur Abdomen: Mild-distended, [id number] epigastric tenderness to palpation, +BS Labs: Labs Test 05/17/24 21:33 05/17/24 20:40 05/17/24 19:45 Range/Units Troponin I High Sensitivity 4 </=54 ng/L White Blood Count 5.5 4.4-10.8 10^3/uL Red Blood Count 4.94 4.5-5.90 10^6/uL Hemoglobin 16.3 13.5-17.5 g/dL Hematocrit 47.2 41.0-53.0 % Mean Corpuscular Volume 95.5 80.0-100.0 fL Mean Corpuscular Hemoglobin 33.0 H 28.0-32.0 pg Mean Corpuscular Hemoglobin Concent 34.5 32.0-36.0 g/dL Red Cell Distribution Width 14.3 11.8-14.3 % Platelet Count 284 140-450 10^3/uL Mean Platelet Volume 6.7 L 6.9-10.8 fL Neutrophils (%) (Auto) 66.0 37.0-80.0 % Lymphocytes (%) (Auto) 20.8 10.0-50.0 % Monocytes (%) (Auto) 10.1 0.0-12.0 % Eosinophils (%) (Auto) 2.6 0.0-7.0 % Basophils (%) (Auto) 0.5 0.0-2.0 % Neutrophils # (Auto) 3.6 1.6-8.6 10 ^3/uL Lymphocytes # (Auto) 1.1 0.4-5.4 10 ^3/uL Monocytes # (Auto) 0.6 0-1.3 10 ^3/uL Eosinophils # (Auto) 0.1 0-0.8 10 ^3/uL Basophils # (Auto) 0 0-0.2 10 ^3/uL Nucleated Red Blood Cells 1.1 % Sodium Level 138 136-145 mmol/L Potassium Level 3.5 3.5-5.1 mmol/L Chloride Level 103 98-107 mmol/L Carbon Dioxide Level 23 20-31 mmol/L Anion Gap 12 5-15 Blood Urea Nitrogen 20 9-23 mg/dL Creatinine 1.15 0.700-1.30 mg/dL Glomerular Filtration Rate Calc 78 >90 mL/min BUN/Creatinine Ratio 17.4 10.0-20.0 Serum Glucose 111 H 74-106 mg/dL Lactic Acid Level 1.0 0.4-2.0 mmol/L Calcium Level 10.6 H 8.7-10.4 mg/dL Total Bilirubin 0.8 0.2-1.0 mg/dL Aspartate Amino Transferase (AST) 29 13-40 U/L Alanine Aminotransferase (ALT) 33 7-40 U/L Alkaline Phosphatase 89 46-116 U/L Total Protein 7.8 5.7-8.2 g/dL Albumin 5.3 H 3.2-4.8 g/dL Lipase 46 12-53 U/L Urine Color Yellow Yellow Urine Clarity Clear Clear Urine pH 6.0 5.0-9.0 Urine Specific [place] > 1.050 H 1.001-1.035 Urine Protein 1+ H Negative Urine Ketones 1+ H Negative Urine Blood Negative Negative /uL Urine Nitrite Negative Negative Urine Bilirubin Negative Negative Urine Urobilinogen Normal Negative mg/dL Urine Leukocyte Esterase Negative Negative /uL Urine RBC 1 0 - 3 /hpf Urine Microscopic WBC < 1 0-3 /HPF Urine Squamous Epithelial Cells None seen <5 /hpf Urine Bacteria None seen None Seen /hpf Urine Glucose Normal Normal mg/dL Imaging: Abdominal x-ray IMPRESSION: Non-specific gas-filled loops of bowel. Large stool burden CT abdomen pelvis 05/16/2024 IMPRESSION: 1. There is no acute process in the abdomen and pelvis. 2. Mildly contracted gallbladder without evidence of gallstones. Assessment: Chest pain Cardiology consult pending Abdominal pain GERD Constipation History of hemorrhoids Plan: Discussed with Dr. Troy Cardiology consult pending Protonix and Carafate Lactulose Hold Eliquis Possible EGD recommended if symptoms persist, pending cardiac clearance If patient's symptoms improve and is discharged recommend EGD colonoscopy on an outpatient basis Thank you for this consult Date of Service: May 19, 2024 Billing Provider: BENJAMÍN LUX Common Visit Codes: CONSULT ONLY Consultation Codes: [id number] CONSULT <60MIN BENJAMÍN LUX May 19, 2024 12:09
--- NOTE | 2024-05-19 12:11 | DVHINCON2 ---
Date of service: May 19, 2024 History of Present Illness HPI Patient is a 48-year-old gentleman who presented with few days of abdominal pain/constipation. He had presented to another facility for the same. Recently, he did receive treatment for URI with antibiotics. Presentation has been considered intractable abdominal pain. Primary team/GI is considering to proceed with endoscopy/colonoscopy. Cardiology was involved for cardiac aspects of care and also risk stratification prior to EGD/colonoscopy. He denies any recent chest pain/shortness of breaths. He denies palpitation and loss of consciousness. Patient is known to our practice from outside. He does have baseline history of paroxysmal AFib and is on Eliquis as outpatient. He has had negative nuclear stress test around a year ago. Home Meds Active Scripts Cyclobenzaprine Hcl (Cyclobenzaprine Hcl) 10 Mg Tab, 10 MG PO TID for 10 Days, #30 TAB Prov:ZEKE FISHER MD 04/30/24 Metoclopramide Hcl (Reglan) 10 Mg Tab, 10 MG PO BID for 14 Days, #28 TAB Prov:ZEKE FISHER MD 04/30/24 Methylprednisolone (Medrol Dosepak) 4 Mg Kvng, 4 MG PO UD, #21 TAB UAD Prov:CHRISSIE SUH 04/13/24 Promethazine Hcl (Promethazine Hcl) 25 Mg Tab, 1 TAB PO Q6HPRN for 14 Days, #56 TAB Prov:BLAIRE MCLEOD ASSOCIATE PROFESSOR OF MUSIC 03/26/24 Doxycycline Hyclate (DOXYCYCLINE HYCLATE) 100 Mg Tab, 1 TAB PO BID for 10 Days, #20 TAB Prov:BLAIRE MCLEOD ASSOCIATE PROFESSOR [employer] MUSIC 03/26/24 Sucralfate (Sucralfate) 1 Gm Tab, 1 TAB PO QID for 30 Days, #120 TAB Prov:MCKENNA ROTH NP 11/15/23 Pantoprazole Sodium Sesquihydr (Pantoprazole Sodium) 40 Mg Tab, 1 TAB PO BID for 30 Days, #60 TAB Prov:MCKENNA ROTH NP 11/15/23 Amiodarone HCl (Amiodarone HCl) 200 Mg Tab, 200 MG PO HS for 30 Days, #30 TAB Prov:MCKENNA ROTH NP 10/16/23 Reported Medications Ketoconazole (Ketoconazole) 2 % Cre, 1 APPLIC TOP BID, #60 GRAMS 1 Refill 05/18/24 Clotrimazole (Clotrimazole) 1 % Cre, 1 APPLIC TOP Q12HR for 30 Days, APPLIC 05/18/24 Amlodipine Besylate (Amlodipine Besylate) 5 Mg Tab, 10 MG PO DAILY for 30 Days, MG 05/18/24 Atogepant (Qulipta) 60 Mg Tab, 60 MG PO, TAB 05/18/24 Metronidazole (Flagyl) 500 Mg Tab, 500 MG PO Q8HR, MG 05/18/24 Hydroxyzine HCl (Hydroxyzine Hydrochloride) 10 Mg Tab, 20 MG PO DAILYP, TAB 05/18/24 Amiodarone Hcl (Amiodarone Hcl) 200 Mg Tab, 100 MG PO BID 05/18/24 Labetalol HCl (Labetalol Hydrochloride) 200 Mg Tab, 1 TAB PO BID 03/25/24 Tamsulosin HCl (Tamsulosin Hydrochloride) 0.4 Mg Cap, 0.4 MG PO DAILY, CAP 03/25/24 Beclomethasone Dipropionate (Qvar Redihaler) 80 Mcg/Act Aer, 2 PUFF IN BID, AER 03/25/24 Docusate Sodium (Colace) 100 Mg Cap, 100 MG PO BID PRN for FOR CONSTIPATION, CAP 03/25/24 Albuterol Sulfate (Albuterol Sulfate Hfa) 108 Mcg/Act Aer, 1 PUFF INH Q4HPRN PRN for SHORTNESS OF BREATH 03/25/24 Hydroxyzine Hcl (Hydroxyzine Hcl) 25 Mg Tab, 20 MG PO DAILY PRN for FOR ITCHING, TAB 03/25/24 Magnesium Oxide (Magnesium Oxide) 400 Mg Tab, 1 TAB PO DAILY 11/14/23 Triamcinolone Acetonide (Triamcinolone Acetonide) 0.1 % Pst, 1 APPLIC TOP BID, APPLIC both arms 10/12/23 Albuterol Sulfate (VENTOLIN MDI) 90 Mcg Ih, 90 MCG IN Q4HP, INH 10/12/23 Apixaban Base (ELIQUIS) 5 Mg Tab, 5 MG PO BID, TAB 10/12/23 Meloxicam (Meloxicam) 15 Mg Tab, 1 TAB PO DAILY@BREAKFAST, #30 TAB 2 Refills 10/12/23 Evolocumab (Repatha) 140 Mg/Ml Inj, 1 ML SC, INJ take once every 24 days 10/12/23 Hctz (Hydrochlorothiazide) 25 Mg Tab, 25 MG PO DAILY, TAB 10/12/23 Dicyclomine Hcl (Dicyclomine Hcl) 20 Mg Tab, 10 MG PO TID, MG 10/12/23 Cholecalciferol (VITAMIN D3) 2,000 Unit Tab, 1 TAB PO DAILY, #30 TAB 5 Refills 10/12/23 Pravastatin Sodium (PRAVACHOL TABLET) 20 Mg Tb, 2 TAB PO DAILY, #30 TAB 5 Ref ills 10/12/23 Diphenhydramine Hcl (Banophen) 25 Mg Cap, 25 MG PO BID, CAP 10/12/23 Past Medical History Others Past medical history includes learning disability, hypertension, paroxysmal AFib (on Eliquis as outpatient), asthma, osteoarthritis, anxiety/depression, BPH, hyperlipidemia (on Repatha as outpatient), migraines, history of vitamin-D deficiency and magnesium deficiency, CKD, GERD, short episodes of SVT and mild mitral valve prolapse. He is allergic to statins and is on Repatha as outpatient. Patient Family History: Diabetes mellitus G8 FATHER, Alocohol: None Drugs: None Lives with: With family Review of Systems Cardiovascular: No symptom reported Gastrointestinal: Abdominal Pain, Constipation All Other Systems Fourteen point review of system was performed. Relevant findings as per above and as per HPI. Otherwise negative. H&P Exam Vital Signs Vital Signs Date Time Temp Pulse Resp B/P (MAP) Pulse Ox O2 Delivery O2 Flow Rate FiO2 05/19/24 10:00 95 Room Air* 0 21 05/19/24 09:46 98.0 69 17 114/75 (88) 98.0 General Appeara: Well developed, Well nourished Head Exam: Normal inspection Neck Exam: Normal inspection Eye Exam: bilateral eye PERRL Nasal Exam: Normal inspection Mouth: Normal Inspection Pulmonary/Respiratory: Lungs clear Cardiovascular/Chest: Normal inspection, Regular rate Peripheral Pulses: 2+ carotid (R), 2+ carotid (L), 2+ femoral (R), 2+ femoral (L), 2+ dorsalis pedis (R), 2+ dorsalis pedis (L), 2+ Radial (R), 2+ Radial (L) Abdominal Exam: Normal bowel sounds, Other (mild generalized tenderness+, no rebound tenderness) Neuro/Mental St: Alert, Oriented Appearance: Appropriate appearance Eye contact/ Speech: Cooperative Labs/Xrays Labs Test 05/17/24 21:33 05/17/24 20:40 05/17/24 19:45 Range/Units Troponin I High Sensitivity 4 </=54 ng/L White Blood Count 5.5 4.4-10.8 10^3/uL Red Blood Count 4.94 4.5-5.90 10^6/uL Hemoglobin 16.3 13.5-17.5 g/dL Hematocrit 47.2 41.0-53.0 % Mean Corpuscular Volume 95.5 80.0-100.0 fL Mean Corpuscular Hemoglobin 33.0 H 28.0-32.0 pg Mean Corpuscular Hemoglobin Concent 34.5 32.0-36.0 g/dL Red Cell Distribution Width 14.3 11.8-14.3 % Platelet Count 284 140-450 10^3/uL Mean Platelet Volume 6.7 L 6.9-10.8 fL Neutrophils (%) (Auto) 66.0 37.0-80.0 % Lymphocytes (%) (Auto) 20.8 10.0-50.0 % Monocytes (%) (Auto) 10.1 0.0-12.0 % Eosinophils (%) (Auto) 2.6 0.0-7.0 % Basophils (%) (Auto) 0.5 0.0-2.0 % Neutrophils # (Auto) 3.6 1.6-8.6 10 ^3/uL Lymphocytes # (Auto) 1.1 0.4-5.4 10 ^3/uL Monocytes # (Auto) 0.6 0-1.3 10 ^3/uL Eosinophils # (Auto) 0.1 0-0.8 10 ^3/uL Basophils # (Auto) 0 0-0.2 10 ^3/uL Nucleated Red Blood Cells 1.1 % Sodium Level 138 136-145 mmol/L Potassium Level 3.5 3.5-5.1 mmol/L Chloride Level 103 98-107 mmol/L Carbon Dioxide Level 23 20-31 mmol/L Anion Gap 12 5-15 Blood Urea Nitrogen 20 9-23 mg/dL Creatinine 1.15 0.700-1.30 mg/dL Glomerular Filtration Rate Calc 78 >90 mL/min BUN/Creatinine Ratio 17.4 10.0-20.0 Serum Glucose 111 H 74-106 mg/dL Lactic Acid Level 1.0 0.4-2.0 mmol/L Calcium Level 10.6 H 8.7-10.4 mg/dL Total Bilirubin 0.8 0.2-1.0 mg/dL Aspartate Amino Transferase (AST) 29 13-40 U/L Alanine Aminotransferase (ALT) 33 7-40 U/L Alkaline Phosphatase 89 46-116 U/L Total Protein 7.8 5.7-8.2 g/dL Albumin 5.3 H 3.2-4.8 g/dL Lipase 46 12-53 U/L Urine Color Yellow Yellow Urine Clarity Clear Clear Urine pH 6.0 5.0-9.0 Urine Specific [place] > 1.050 H 1.001-1.035 Urine Protein 1+ H Negative Urine Ketones 1+ H Negative Urine Blood Negative Negative /uL Urine Nitrite Negative Negative Urine Bilirubin Negative Negative Urine Urobilinogen Normal Negative mg/dL Urine Leukocyte Esterase Negative Negative /uL Urine RBC 1 0 - 3 /hpf Urine Microscopic WBC < 1 0-3 /HPF Urine Squamous Epithelial Cells None seen <5 /hpf Urine Bacteria None seen None Seen /hpf Urine Glucose Normal Normal mg/dL Assessment/Plan Plan Patient is a 48-year-old gentleman who presented with few days of abdominal pain/constipation. He had presented to another facility for the same. Recently, he did receive treatment for URI with antibiotics. Presentation has been considered intractable abdominal pain. Primary team/GI is considering to proceed with endoscopy/colonoscopy. Cardiology was involved for cardiac aspects of care and also risk stratification prior to EGD/colonoscopy. He denies any recent chest pain/shortness of breaths. He denies palpitation and loss of consciousness. Patient is known to our practice from outside. He does have baseline history of paroxysmal AFib and is on Eliquis as outpatient. He has had negative nuclear stress test around a year ago. Not in acute distress. No carotid bruit. No JVD. Mucosa is pink and wet. Lungs: Clear to auscultation. Cardiac: Regular, no thrill/gallop, abdomen is soft. There is no gross mass/hepatomegaly. Mild generalized abdominal tenderness is elicited. There is no rebound tenderness. Extremities reveal 1+ edema bilaterally. Dorsalis pedis is 2+ bilateral. Past medical history includes learning disability, hypertension, paroxysmal AFib (on Eliquis as outpatient), asthma, osteoarthritis, anxiety/depression, BPH, hyperlipidemia (on Repatha as outpatient), migraines, history of vitamin-D deficiency and magnesium deficiency, CKD, GERD, short episodes of SVT and mild mitral valve prolapse. He is allergic to statins and is on Repatha as outpatient. Nuclear stress test of February 2023 did not reveal ischemia and reported ejection fraction of 77%. Echocardiogram of December 24, 2022 (performed in the office) revealed ejection fraction of 65-70%, mild MR/TR/PI and mild mitral valve prolapse Echocardiogram of October 13, 2023 had revealed ejection fraction of 64%, trace MR/TR/PI Echocardiogram of March 25, 2024 revealed ejection fraction of 65-70 percent, there was no wall motion abnormality. There was trace MR/TR/PI. Creatinine: 1.15 Potassium: 3.5 Troponin (high sensitive): 5 - 4 Abdominal x-ray reported: FINDINGS: No focal evidence of airspace disease. The cardiomediastinal silhouette is within normal limits. No acute osseous lesions. Nonobstructive bowel gas pattern noted. There is no evidence for pneumoperitoneum. No abnormal calcifications noted. IMPRESSION: Non-specific gas-filled loops of bowel. Large stool burden Telemetry has revealed sinus rhythm Patient is a 48-year-old gentleman who presented with intractable abdominal pa in/constipation. Does have recent treatment for URI with antibiotics. Baseline history includes atrial fibrillation/hyperlipidemia/hypertension/anxiety and depression. Cardiac-kovacs is non symptomatic. Acute coronary syndrome is not considered. To go for possible EGD/colonoscopy. Cardiac-kovacs, the patient is considered low risk patient for low risk EGD/colonoscopy. You can hold anticoagulation (patient on Eliquis as outpatient) prior to proceeding with EGD/colonoscopy Intractable abdominal pain Constipation Paroxysmal AFib Hypertension Depression BPH SVT Cardiac suggestion for management: Manage on telemetry Follow-up electrolytes and kidney function tests and correct abnormalities. Keep potassium above 4 and magnesium above 2 Long-term continuation of full anticoagulation (Eliquis) is advised. Anticoagulation time be hold prior to proceed with EGD/colonoscopy at [facility] [place] Cardiac-kovacs, the patient is considered low risk patient for low risk EGD/colonoscopy. You can hold anticoagulation (patient on Eliquis as outpatient) for two days prior to proceeding with EGD/colonoscopy. Evaluation and management of intractable abdominal pain/constipation as per primary team/GI. Thank you for consultation Further evaluation and management depends on the above and clinical course A total of 75 minutes was spent reviewing the patient record, examining the patient, making a diagnostic and therapeutic plan, discussing this plan with medical personnel, following up on diagnostic studies and following the patient for clinical stability excluding any and all procedures. At least 50% of this time was spent in direct, [id number] contact. Thank you for allowing me to participate in this patient's care. Further recommendations will depend on patient's clinical course. Please do not hesitate to contact me if you have any questions or concerns. This medical document was created using electronic medical record system with [employer] computerized dictation system. Although this document has been carefully reviewed, there may still be some phonetic and typographical errors. These areas are purely typographical due to the imperfection of the software programs, and do not reflect any compromise in the patient's medical care. Plan discussed with: Patient, Other (nurse) APOORVA JON MD May 19, 2024 12:11
[2024-05-19] MEDS: LACTULOSE 20Gm/30ML SOLN PO SCH (15:53)
[2024-05-19] MEDS: MORPHINE SULFATE INJ 2 MG/ml SYRG IV PRN (18:25)
--- NOTE | 2024-05-19 20:32 | DVHPN2 ---
Progress Note Date Seen: May 19, 2024 Medical Necessity Reason Pt with a Central, PICC or Fol: No Subjective Review of Systems: CVS:Normal, RESPIRATORY:Normal, :Abnormal, NEURO:Normal Objective vital signs Vital Sign Date Time Temp Pulse Resp B/P (MAP) Pulse Ox O2 Delivery O2 Flow Rate FiO2 05/19/24 19:00 96 Room Air 0.0 05/19/24 19:00 21 05/19/24 18:55 84 18 133/80 05/19/24 17:17 98.7 98.7 Total Intake and Output 05/18/24 05/18/24 05/19/24 15:00 23:00 07:00 Intake Total 2400 ml 275 ml Balance 2400 ml 275 ml medications Current Medications Medications Dose Ordered Sig/Yesenia Route Start Time Stop Time Status Last Admin Dose Admin Temazepam 15 mg QHSP PRN PO 05/17/24 22:45 Ondansetron HCl 4 mg Q4HP PRN IV 05/17/24 22:45 Docusate Sodium 100 mg BIDPRN PRN PO 05/17/24 22:45 Nitroglycerin 0.4 mg Q5MINP PRN SL 05/17/24 22:45 Hydromorphone HCl 0.25 mg Q4HPRN PRN IV 05/17/24 22:45 05/19/24 05:43 0.25 MG Pantoprazole Sodium 40 mg BID IV 05/18/24 10:00 05/19/24 09:25 40 MG Sucralfate 1 gm QID PO 05/18/24 06:00 05/19/24 17:27 1 GM Amiodarone HCl 200 mg HS PO 05/18/24 22:00 05/18/24 22:10 200 MG Labetalol HCl 200 mg BID PO 05/18/24 10:00 05/19/24 09:26 200 MG Tamsulosin HCl 0.4 mg DAILY PO 05/18/24 10:00 05/19/24 09:34 0.4 MG Albuterol 2.5 mg Q4HPRN PRN NEB 05/17/24 23:15 Polyethylene Glycol 17 gm DAILY PO 05/18/24 12:15 05/19/24 09:26 17 GM Metronidazole 500 mg Q8HR PO 05/18/24 14:00 05/19/24 13:36 500 MG Metoclopramide HCl 5 mg Q8HR PO 05/18/24 14:00 05/19/24 13:36 5 MG Cyclobenzaprine HCl 5 mg Q8HPRN PRN PO 05/18/24 12:45 Lactulose 30 ml TID PO 05/19/24 14:00 05/19/24 15:53 30 ML Meclizine HCl 25 mg Q6HPRN PRN PO 05/19/24 11:45 Morphine Sulfate 1 mg Q4HP PRN IV 05/19/24 11:45 05/19/24 18:25 1 MG Examination: GENERAL:Normal, LUNGS:Normal, CVS:Abnormal, ABDOMEN:Normal, SKIN:Normal, NEURO:Normal laboratory and microbiology Laboratory Tests 05/17/24 20:40 Test 05/17/24 20:40 Range/Units Serum Glucose 111 H 74-106 mg/dL Labs and/or images reviewed: Labs reviewed by me, Image(s) reviewed by me Problem List/Assessment/Plan Problem List/Assessment/Plan 1. Abdominal pain r/t constipation Monitor, GI consult, carafate, cathartics 2. GERD Monitor, GI consult 3. HLD Monitor, DVT prophylaxis 4. Anxiety Monitor, restart home meds Assessment/Plan Subjective Patient is awake and alert. Objective Patient was admitted for abdominal pain. Patient was recently discharged from [facility]. Patient is stating his upper endoscopy was rescheduled for August and that he has persistent abdominal pain. Patient does have multiple drug allergies. Patient was previously seen by GI. Patient was started on Protonix twice a day as well as Carafate 4 times a day. Today patient was reporting some dizziness which is likely side effect from receiving Dilaudid. Regardless patient was started on meclizine. Patient will be having EGD patient was stratified as low risk for EGD per cardiology's note. We will continue to hold Eliquis for upcoming upper endoscopy. Plan Cardiology consult. Patient is on chronic anticoagulation. Hold Eliquis for now. Pending possible upper endoscopy by Dr. Troy. Continue PPI. DVT prophylaxis. Monitor daily labs. Plan discussed with: Patient My Orders My Orders Orders - BLAIRE MCLEOD Procedure Category Date Status Time Cardiac DIET 05/19/24 Transmitted Diet-2gna,Lofat,Lochol Lunch Lactulose Oral PHA 2/14/25 In Process 14:00 Meclizine Tablet PHA 05/19/24 In Process (Antivert Tablet) 11:45 Morphine Sulfate PHA 05/19/24 In Process Injection 11:45 Date of Service: May 19, 2024 Billing Provider: VERONICA HAYWOOD MD Common Visit Codes: [id number] INP/OBS CARE (MOD) BLAIRE MCLEOD REHABILITATION AIDE May 19, 2024 20:32
[2024-05-20] VITALS (11 sets, daily range): BP systolic 121–136; BP diastolic 68–90; PULSE 67–99; RESP 18–20; TEMP 78.8–98.3; O2SAT 92–99
[2024-05-20] MEDS: GOLYTELY 4L KIT PO ONE (11:39)
--- NOTE | 2024-05-20 11:39 | DVH ---
Date: 05/20/2024 11:20 AM Examination: XY KUB ABDOMEN SINGLE VIEW History: r.o ilues Comparison: XY KUB ABDOMEN SINGLE VIEW on DOS: 11/12/23, XY KUB ABDOMEN SINGLE VIEW on DOS: 10/15/23 TECHNIQUE: Frontal views of the abdomen was obtained. FINDINGS: Bowel gas pattern is unremarkable. The lung bases are unremarkable. No acute osseous abnormality identified. IMPRESSION: Nonobstructive bowel gas pattern. Large stool burden
--- NOTE | 2024-05-20 11:50 | DVHPN2 ---
Progress Note Date Seen: May 20, 2024 Resident Creating Document: DOMINGA ESTRADA RESIDENT Medical Necessity Reason Pt with a Central, PICC or Fol: No Subjective Review of Systems The patient was seen and examined on the bedside. He is alert oriented x3. Mentioned mild abdominal pain and has bowel movement. Possible EGD on Wednesday if patient continues having abdominal pain. No other active complaint Objective vital signs Vital Sign Date Time Temp Pulse Resp B/P (MAP) Pulse Ox O2 Delivery O2 Flow Rate FiO2 05/20/24 11:01 74 143/81 05/20/24 10:15 18 05/20/24 10:00 98 Room Air* 0 21 05/20/24 09:00 97.7 97.7 Total Intake and Output 05/19/24 05/19/24 05/20/24 15:00 23:00 07:00 Intake Total 325 ml 500 ml Output Total 1200 ml Balance -875 ml 500 ml medications Current Medications Medications Dose Ordered Sig/Yesenia Route Start Time Stop Time Status Last Admin Dose Admin Temazepam 15 mg QHSP PRN PO 05/17/24 22:45 Ondansetron HCl 4 mg Q4HP PRN IV 05/17/24 22:45 Docusate Sodium 100 mg BIDPRN PRN PO 05/17/24 22:45 Nitroglycerin 0.4 mg Q5MINP PRN SL 05/17/24 22:45 Hydromorphone HCl 0.25 mg Q4HPRN PRN IV 05/17/24 22:45 05/19/24 05:43 0.25 MG Pantoprazole Sodium 40 mg BID IV 05/18/24 10:00 05/20/24 09:41 40 MG Sucralfate 1 gm QID PO 05/18/24 06:00 05/20/24 11:39 1 GM Amiodarone HCl 200 mg HS PO 05/18/24 22:00 05/19/24 22:15 200 MG Labetalol HCl 200 mg BID PO 05/18/24 10:00 05/20/24 09:42 200 MG Tamsulosin HCl 0.4 mg DAILY PO 05/18/24 10:00 05/20/24 09:41 0.4 MG Albuterol 2.5 mg Q4HPRN PRN NEB 05/17/24 23:15 Polyethylene Glycol 17 gm DAILY PO 05/18/24 12:15 05/20/24 09:42 17 GM Metronidazole 500 mg Q8HR PO 05/18/24 14:00 05/20/24 05:16 500 MG Metoclopramide HCl 5 mg Q8HR PO 05/18/24 14:00 05/20/24 05:16 5 MG Cyclobenzaprine HCl 5 mg Q8HPRN PRN PO 05/18/24 12:45 Meclizine HCl 25 mg Q6HPRN PRN PO 05/19/24 11:45 Morphine Sulfate 1 mg Q4HP PRN IV 05/19/24 11:45 05/20/24 09:45 1 MG Examination Physical examination: General Appearance: Alert, Oriented X3, Cooperative, No acute distress HEENT: Atraumatic, PERRLA, EOMI, Mucous membrane moist/pink Respiratory: Clear to auscultation, Normal air movement Cardiovascular: Regular rate, Normal S1, Normal S2, No murmurs, no chest wall tenderness Abdominal: Normal bowel sounds, Soft, No tenderness, No hepatospenomegaly, No masses Extremities: No clubbing, No cyanosis, No edema, Normal pulses, No tenderness/swelling Skin: No rashes, No breakdown, No significant lesion Neuro: Normal gait, Normal speech, Strength at 5/5 X4 ext, Normal tone, Sensation intact, grossly intact cranial nerves Psych/Mental Status: Mental status NL, Mood NL laboratory and microbiology Laboratory Tests 05/17/24 20:40 Test 05/17/24 20:40 Range/Units Serum Glucose 111 H 74-106 mg/dL Labs and/or images reviewed: Labs reviewed by me, Image(s) reviewed by me Problem List/Assessment/Plan Problem List/Assessment/Plan Assesment: # Chest pain ruled out ACS by cardiology. # Abdominal pain likely due to constipation. # Chronic GERD # History of hemorrhoids Plan: - Full liquid diet and advance as tolerated - continue Protonix 40 mg p.o. b.i.d. and Carafate 1 g p.o. q.i.d. - Continue laxative lactulose 30 mL p.o. b.i.d., Colace 100 mg p.o. b.i.d. - Possible EGD on Wednesday if symptoms persist - Cardiology clearance appreciated for the procedure - Hold Eliquis - If patient's symptoms improve and is discharged recommend EGD colonoscopy on an outpatient basis. Plan discussed with Dr. Troy Plan discussed with: Patient, Other My Orders My Orders Orders - DOMINGA ESTRADA Procedure Category Date Status Time Pantoprazole Tablet PHA 05/20/24 Transmitted (Protonix Tablet) 17:00 DOMINGA ESTRADA May 20, 2024 11:50
--- NOTE | 2024-05-20 11:58 | DVHPN2 ---
Progress Note - Dictate Date Seen: May 20, 2024 Medical Necessity Reason Pt with a Central, PICC or Fol: No vital signs Vital Sign Date Time Temp Pulse Resp B/P (MAP) Pulse Ox O2 Delivery O2 Flow Rate FiO2 05/20/24 11:01 74 143/81 05/20/24 10:15 18 05/20/24 10:00 98 Room Air* 0 21 05/20/24 09:00 97.7 97.7 Total Intake and Output 05/19/24 05/19/24 05/20/24 15:00 23:00 07:00 Intake Total 325 ml 500 ml Output Total 1200 ml Balance -875 ml 500 ml medications Current Medications Medications Dose Ordered Sig/Yesenia Route Start Time Stop Time Status Last Admin Dose Admin Temazepam 15 mg QHSP PRN PO 05/17/24 22:45 Ondansetron HCl 4 mg Q4HP PRN IV 05/17/24 22:45 Docusate Sodium 100 mg BIDPRN PRN PO 05/17/24 22:45 Nitroglycerin 0.4 mg Q5MINP PRN SL 05/17/24 22:45 Hydromorphone HCl 0.25 mg Q4HPRN PRN IV 05/17/24 22:45 05/19/24 05:43 0.25 MG Sucralfate 1 gm QID PO 05/18/24 06:00 05/20/24 11:39 1 GM Amiodarone HCl 200 mg HS PO 05/18/24 22:00 05/19/24 22:15 200 MG Labetalol HCl 200 mg BID PO 05/18/24 10:00 05/20/24 09:42 200 MG Tamsulosin HCl 0.4 mg DAILY PO 05/18/24 10:00 05/20/24 09:41 0.4 MG Albuterol 2.5 mg Q4HPRN PRN NEB 05/17/24 23:15 Polyethylene Glycol 17 gm DAILY PO 05/18/24 12:15 05/20/24 09:42 17 GM Metronidazole 500 mg Q8HR PO 05/18/24 14:00 05/20/24 05:16 500 MG Metoclopramide HCl 5 mg Q8HR PO 05/18/24 14:00 05/20/24 05:16 5 MG Cyclobenzaprine HCl 5 mg Q8HPRN PRN PO 05/18/24 12:45 Meclizine HCl 25 mg Q6HPRN PRN PO 05/19/24 11:45 Morphine Sulfate 1 mg Q4HP PRN IV 05/19/24 11:45 05/20/24 09:45 1 MG Pantoprazole Sodium 40 mg BID@0600,1700 PO 05/20/24 17:00 UNV laboratory and microbiology Laboratory Tests 05/17/24 20:40 Test 05/17/24 20:40 Range/Units Serum Glucose 111 H 74-106 mg/dL Assessment/Plan Patient is a 48-year-old gentleman who presented with few days of abdominal pain/constipation. He had presented to another facility for the same. Recently, he did receive treatment for URI with antibiotics. Presentation has been considered intractable abdominal pain. Primary team/GI is considering to proceed with endoscopy/colonoscopy. Cardiology was involved for cardiac aspects of care and also risk stratification prior to EGD/colonoscopy. He denies any recent chest pain/shortness of breaths. He denies palpitation and loss of consciousness. Patient is known to our practice from outside. He does have baseline history of paroxysmal AFib and is on Eliquis as outpatient. He has had negative nuclear stress test around a year ago. Not in acute distress. No carotid bruit. No JVD. Mucosa is pink and wet. Lungs: Clear to auscultation. Cardiac: Regular, no thrill/gallop, abdomen is soft. There is no gross mass/hepatomegaly. Mild generalized abdominal tenderness is elicited. There is no rebound tenderness. Extremities reveal 1+ edema bilaterally. Dorsalis pedis is 2+ bilateral. Past medical history includes learning disability, hypertension, paroxysmal AFib (on Eliquis as outpatient), asthma, osteoarthritis, anxiety/depression, BPH, hyperlipidemia (on Repatha as outpatient), migraines, history of vitamin-D deficiency and magnesium deficiency, CKD, GERD, short episodes of SVT and mild mitral valve prolapse. He is allergic to statins and is on Repatha as outpatient. Nuclear stress test of February 2023 did not reveal ischemia and reported ejection fraction of 77%. Echocardiogram of December 24, 2022 (performed in the office) revealed ejection fraction of 65-70%, mild MR/TR/PI and mild mitral valve prolapse Echocardiogram of October 13, 2023 had revealed ejection fraction of 64%, trace MR/TR/PI Echocardiogram of March 25, 2024 revealed ejection fraction of 65-70 percent, there was no wall motion abnormality. There was trace MR/TR/PI. Creatinine: 1.15 Potassium: 3.5 Troponin (high sensitive): 5 - 4 Abdominal x-ray reported: FINDINGS: No focal evidence of airspace disease. The cardiomediastinal silhouette is within normal limits. No acute osseous lesions. Nonobstructive bowel gas pattern noted. There is no evidence for pneumoperitoneum. No abnormal calcifications noted. IMPRESSION: Non-specific gas-filled loops of bowel. Large stool burden KUB reported: History: r.o ilues Comparison: XY KUB ABDOMEN SINGLE VIEW on DOS: 11/12/23, XY KUB ABDOMEN SINGLE VIEW on DOS: 10/15/23 TECHNIQUE: Frontal views of the abdomen was obtained. FINDINGS: Bowel gas pattern is unremarkable. The lung bases are unremarkable. No acute osseous abnormality identified. IMPRESSION: Nonobstructive bowel gas pattern. Large stool burden Telemetry has revealed sinus rhythm Patient is a 48-year-old gentleman who presented with intractable abdominal pain/constipation. Does have recent treatment for URI with antibiotics. Baseline history includes atrial fibrillation/hyperlipidemia/hypertension/anxiety and depression. Cardiac-kovacs is non symptomatic. Acute coronary syndrome is not considered. To go for possible EGD/colonoscopy. Cardiac-kovacs, the patient is considered low risk patient for low risk EGD/colonoscopy. You can hold anticoagulation (patient on Eliquis as outpatient) prior to proceeding with EGD/colonoscopy Intractable abdominal pain Constipation Paroxysmal AFib Hypertension Depression BPH SVT Cardiac suggestion for management: Manage on telemetry Follow-up electrolytes and kidney function tests and correct abnormalities. Keep potassium above 4 and magnesium above 2 Long-term continuation of full anticoagulation (Eliquis) is advised. Anticoagulation can be held prior to proceeding with EGD/colonoscopy at this point Cardiac-kovacs, the patient is considered low risk patient for low risk EGD/colonoscopy. You can hold anticoagulation (patient on Eliquis as outpatient) for two days prior to proceeding with EGD/colonoscopy. Evaluation and management of intractable abdominal pain/constipation as per primary team/GI. Further evaluation and management depends on the above and clinical course A total of 55 minutes was spent reviewing the patient record, examining the patient, making a diagnostic and therapeutic plan, discussing this plan with medical personnel, following up on diagnostic studies and following the patient for clinical stability excluding any and all procedures. At least 50% of this time was spent in direct, [id number] contact. Thank you for allowing me to participate in this patient's care. Further recommendations will depend on patient's clinical course. Please do not hesitate to contact me if you have any questions or concerns. This medical document was created using electronic medical record system with [employer] computerized dictation system. Although this document has been carefully reviewed, there may still be some phonetic and typographical errors. These areas are purely typographical due to the imperfection of the software programs, and do not reflect any compromise in the patient's medical care. Plan discussed with: Patient, Other (nurse) APOORVA JON MD May 20, 2024 11:58
[2024-05-20 14:02] LABS: Basophils # (auto) 0 10 ^3/uL (0-0.2); Basophils % (auto) 0.5 % (0.0-2.0); Eosinophils # (auto) 0.1 10 ^3/uL (0-0.8); Hematocrit 42.5 % (41.0-53.0); Hemoglobin 14.7 g/dL (13.5-17.5); Lymphocytes # (auto) 0.6 10 ^3/uL (0.4-5.4); Lymphocytes % (auto) 15.5 % (10.0-50.0); Mean Corpuscular Hemoglobin 33.6 pg (28.0-32.0); Mean Corpuscular Hgb Conc. 34.6 g/dL (32.0-36.0); Mean Corpuscular Volume 97.1 fL (80.0-100.0); Monocytes # (auto) 0.3 10 ^3/uL (0-1.3); Monocytes % (auto) 8.3 % (0.0-12.0); Neutrophils # (auto) 2.9 10 ^3/uL (1.6-8.6); Neutrophils % (auto) 72.7 % (37.0-80.0); Nucleated Red Blood Cells % 0.1 %; Platelet Count (auto) 220 10^3/uL (140-450); Red Blood Cells 4.38 10^6/uL (4.5-5.90); Red Cell Distribution Width 14.2 % (11.8-14.3)
[2024-05-20 14:19] LABS: Alanine Aminotransferase 26 U/L (7-40); Albumin 4.5 g/dL (3.2-4.8); Alkaline Phosphatase 68 U/L (46-116); Anion Gap 7 (5-15); Aspartate Aminotransferase 19 U/L (13-40); BUN/Creatinine Ratio 12.9 (10.0-20.0); Bilirubin, Total 0.5 mg/dL (0.2-1.0); Blood Urea Nitrogen 15 mg/dL (9-23); Calcium 9.8 mg/dL (8.7-10.4); Carbon Dioxide 25 mmol/L (20-31); Chloride 107 mmol/L (98-107); Potassium 4.2 mmol/L (3.5-5.1); Sodium 139 mmol/L (136-145); Total Protein 6.5 g/dL (5.7-8.2)
[2024-05-20 14:20] LABS: Glucose 152 mg/dL (74-106)
[2024-05-20] MEDS: PANTOPRAZOLE 40 MG TAB PO SCH (17:02)
--- NOTE | 2024-05-20 17:20 | DVHPN2 ---
Progress Note Date Seen: May 20, 2024 Medical Necessity Reason Pt with a Central, PICC or Fol: No Subjective Review of Systems: CVS:Normal, RESPIRATORY:Normal, GI:Normal, :Normal, NEURO:Normal Objective vital signs Vital Sign Date Time Temp Pulse Resp B/P (MAP) Pulse Ox O2 Delivery O2 Flow Rate FiO2 05/20/24 13:00 98.0 67 20 121/73 (89) 96 98.0 05/20/24 11:59 Room Air 0.0 05/20/24 11:59 21 Total Intake and Output 05/19/24 05/19/24 05/20/24 15:00 23:00 07:00 Intake Total 325 ml 500 ml Output Total 1200 ml Balance -875 ml 500 ml medications Current Medications Medications Dose Ordered Sig/Yesenia Route Start Time Stop Time Status Last Admin Dose Admin Temazepam 15 mg QHSP PRN PO 05/17/24 22:45 Ondansetron HCl 4 mg Q4HP PRN IV 05/17/24 22:45 Docusate Sodium 100 mg BIDPRN PRN PO 05/17/24 22:45 Nitroglycerin 0.4 mg Q5MINP PRN SL 05/17/24 22:45 Hydromorphone HCl 0.25 mg Q4HPRN PRN IV 05/17/24 22:45 05/19/24 05:43 0.25 MG Sucralfate 1 gm QID PO 05/18/24 06:00 05/20/24 17:02 1 GM Amiodarone HCl 200 mg HS PO 05/18/24 22:00 05/19/24 22:15 200 MG Labetalol HCl 200 mg BID PO 05/18/24 10:00 05/20/24 09:42 200 MG Tamsulosin HCl 0.4 mg DAILY PO 05/18/24 10:00 05/20/24 09:41 0.4 MG Albuterol 2.5 mg Q4HPRN PRN NEB 05/17/24 23:15 Polyethylene Glycol 17 gm DAILY PO 05/18/24 12:15 05/20/24 09:42 17 GM Metronidazole 500 mg Q8HR PO 05/18/24 14:00 05/20/24 13:11 500 MG Metoclopramide HCl 5 mg Q8HR PO 05/18/24 14:00 05/20/24 13:11 5 MG Cyclobenzaprine HCl 5 mg Q8HPRN PRN PO 05/18/24 12:45 Meclizine HCl 25 mg Q6HPRN PRN PO 05/19/24 11:45 Morphine Sulfate 1 mg Q4HP PRN IV 05/19/24 11:45 05/20/24 09:45 1 MG Pantoprazole Sodium 40 mg BID@0600,1700 PO 05/20/24 17:00 05/20/24 17:02 40 MG Lactulose 30 ml BID PO 05/20/24 22:00 Examination: GENERAL:Normal, LUNGS:Normal, CVS:Normal (Is distended), ABDOMEN:Abnormal (Abdomen), SKIN:Normal, NEURO:Normal laboratory and microbiology Laboratory Tests 05/20/24 13:49 Test 05/20/24 13:49 Range/Units Serum Glucose 152 H 74-106 mg/dL Labs and/or images reviewed: Labs reviewed by me, Image(s) reviewed by me Problem List/Assessment/Plan Problem List/Assessment/Plan 1. Abdominal pain r/t constipation Monitor, GI consult, carafate, cathartics 2. GERD Monitor, GI consult 3. HLD Monitor, DVT prophylaxis 4. Anxiety Monitor, restart home meds Assessment/Plan Subjective Patient is awake and alert. Objective Patient was admitted for abdominal pain. Patient was recently discharged from [facility]. Patient is stating his upper endoscopy was rescheduled for August and that he has persistent abdominal pain. Patient does have multiple drug allergies. Patient was previously seen by GI. Patient was started on Protonix twice a day as well as Carafate 4 times a day. Today patient was reporting some dizziness which is likely side effect from receiving Dilaudid. Regardless patient was started on meclizine. Patient will be having EGD patient was stratified as low risk for EGD per cardiology's note. We will continue to hold Eliquis for upcoming upper endoscopy. Dr. Troy we will be planning for EGD possibly on Wednesday. Patient continues to have severe distention to abdomen, KUB shows log large stool burden. Patient denies having a bowel movement. Patient was started on GoLYTELY today. Patient was advised to continue walking. Plan Cardiology consult. Patient is on chronic anticoagulation. Hold Eliquis for now. Pending possible upper endoscopy by Dr. Troy. Continue PPI. DVT prophylaxis. Monitor daily labs. Start GoLYTELY, encouraged walking Plan discussed with: Patient My Orders My Orders Orders - BLAIRE MCLEOD Procedure Category Date Status Time Kub Abdomen Single XY 05/20/24 Resulted View 10:55 Date of Service: May 20, 2024 Billing Provider: VERONICA HAYWOOD MD Common Visit Codes: [id number] INP/OBS CARE (MOD) BLAIRE MCLEOD May 20, 2024 17:20
[2024-05-20] MEDS: LACTULOSE 20Gm/30ML SOLN PO SCH (21:22)
[2024-05-20] MEDS: TEMAZEPAM 15 MG CAP PO PRN (21:28)
[2024-05-20] MEDS: CYCLOBENZAPRINE HCL 10 MG TAB PO PRN (21:28)
[2024-05-20] MEDS ORDERED: DOCUSATE SOD 100 MG CAP PO SCH (22:00)
[2024-05-21] VITALS (12 sets, daily range): BP systolic 124–147; BP diastolic 68–88; PULSE 62–104; RESP 18–20; TEMP 97.8–98.6; O2SAT 96–99
--- NOTE | 2024-05-21 07:55 | DVHPN2 ---
Progress Note - Dictate Date Seen: May 21, 2024 Medical Necessity Reason Pt with a Central, PICC or Fol: No vital signs Vital Sign Date Time Temp Pulse Resp B/P (MAP) Pulse Ox O2 Delivery O2 Flow Rate FiO2 05/21/24 04:40 98.3 69 20 128/77 (94) 97 98.3 05/21/24 01:04 21 05/20/24 20:00 Room Air* 0 Total Intake and Output 05/20/24 05/20/24 05/21/24 15:00 23:00 07:00 Intake Total 822 ml 949 ml 100 ml Output Total 1075 ml 250 ml Balance 822 ml -126 ml -150 ml medications Current Medications Medications Dose Ordered Sig/Yesenia Route Start Time Stop Time Status Last Admin Dose Admin Temazepam 15 mg QHSP PRN PO 05/17/24 22:45 05/20/24 21:28 15 MG Ondansetron HCl 4 mg Q4HP PRN IV 05/17/24 22:45 Docusate Sodium 100 mg BIDPRN PRN PO 05/17/24 22:45 Nitroglycerin 0.4 mg Q5MINP PRN SL 05/17/24 22:45 Hydromorphone HCl 0.25 mg Q4HPRN PRN IV 05/17/24 22:45 05/19/24 05:43 0.25 MG Sucralfate 1 gm QID PO 05/18/24 06:00 05/21/24 05:16 1 GM Amiodarone HCl 200 mg HS PO 05/18/24 22:00 05/20/24 21:21 200 MG Labetalol HCl 200 mg BID PO 05/18/24 10:00 05/20/24 21:22 200 MG Tamsulosin HCl 0.4 mg DAILY PO 05/18/24 10:00 05/20/24 09:41 0.4 MG Albuterol 2.5 mg Q4HPRN PRN NEB 05/17/24 23:15 Polyethylene Glycol 17 gm DAILY PO 05/18/24 12:15 05/20/24 09:42 17 GM Metronidazole 500 mg Q8HR PO 05/18/24 14:00 05/21/24 05:16 500 MG Metoclopramide HCl 5 mg Q8HR PO 05/18/24 14:00 05/21/24 05:16 5 MG Cyclobenzaprine HCl 5 mg Q8HPRN PRN PO 05/18/24 12:45 05/21/24 05:33 5 MG Meclizine HCl 25 mg Q6HPRN PRN PO 05/19/24 11:45 Morphine Sulfate 1 mg Q4HP PRN IV 05/19/24 11:45 05/20/24 09:45 1 MG Pantoprazole Sodium 40 mg BID@0600,1700 PO 05/20/24 17:00 05/21/24 05:17 40 MG Lactulose 30 ml BID PO 05/20/24 22:00 05/20/24 21:22 30 ML laboratory and microbiology Laboratory Tests 05/20/24 13:49 Test 05/20/24 13:49 Range/Units Serum Glucose 152 H 74-106 mg/dL Assessment/Plan Patient is a 48-year-old gentleman who presented with few days of abdominal pain/constipation. He had presented to another facility for the same. Recently, he did receive treatment for URI with antibiotics. Presentation has been considered intractable abdominal pain. Primary team/GI is considering to proceed with endoscopy/colonoscopy. Cardiology was involved for cardiac aspects of care and also risk stratification prior to EGD/colonoscopy. He denies any recent chest pain/shortness of breaths. He denies palpitation and loss of consciousness. Patient is known to our practice from outside. He does have baseline history of paroxysmal AFib and is on Eliquis as outpatient. He has had negative nuclear stress test around a year ago. Not in acute distress. No carotid bruit. No JVD. Mucosa is pink and wet. Lungs: Clear to auscultation. Cardiac: Regular, no thrill/gallop, abdomen is soft. There is no gross mass/hepatomegaly. Mild generalized abdominal tenderness is elicited. There is no rebound tenderness. Extremities reveal 1+ edema bilaterally. Dorsalis pedis is 2+ bilateral. Past medical history includes learning disability, hypertension, paroxysmal AFib (on Eliquis as outpatient), asthma, osteoarthritis, anxiety/depression, BPH, hyperlipidemia (on Repatha as outpatient), migraines, history of vitamin-D deficiency and magnesium deficiency, CKD, GERD, short episodes of SVT and mild mitral valve prolapse. He is allergic to statins and is on Repatha as outpatient. Nuclear stress test of February 2023 did not reveal ischemia and reported ejection fraction of 77%. Echocardiogram of December 24, 2022 (performed in the office) revealed ejection fraction of 65-70%, mild MR/TR/PI and mild mitral valve prolapse Echocardiogram of October 13, 2023 had revealed ejection fraction of 64%, trace MR/TR/PI Echocardiogram of March 25, 2024 revealed ejection fraction of 65-70 percent, there was no wall motion abnormality. There was trace MR/TR/PI. Creatinine: 1.15 - 1.16 Potassium: 3.5 - 4.2 Troponin (high sensitive): 5 - 4 Abdominal x-ray reported: FINDINGS: No focal evidence of airspace disease. The cardiomediastinal silhouette is within normal limits. No acute osseous lesions. Nonobstructive bowel gas pattern noted. There is no evidence for pneumoperitoneum. No abnormal calcifications noted. IMPRESSION: Non-specific gas-filled loops of bowel. Large stool burden KUB reported: History: r.o emanuel Comparison: XY KUB ABDOMEN SINGLE VIEW on DOS: 11/12/23, XY KUB ABDOMEN SINGLE VIEW on DOS: 10/15/23 TECHNIQUE: Frontal views of the abdomen was obtained. FINDINGS: Bowel gas pattern is unremarkable. The lung bases are unremarkable. No acute osseous abnormality identified. IMPRESSION: Nonobstructive bowel gas pattern. Large stool burden Telemetry has revealed sinus rhythm Patient is a 48-year-old gentleman who presented with intractable abdominal pain/constipation. Does have recent treatment for URI with antibiotics. Baseline history includes atrial fibrillation/hyperlipidemia/hypertension/anxiety and depression. Cardiac-kovacs is non symptomatic. Acute coronary syndrome is not considered. To go for possible EGD/colonoscopy. Cardiac-kovacs, the patient is considered low risk patient for low risk EGD/colonoscopy. You can hold anticoagulation (patient on Eliquis as outpatient) prior to proceeding with EGD/colonoscopy Intractable abdominal pain Constipation Paroxysmal AFib Hypertension Depression BPH SVT Cardiac suggestion for management: Manage on telemetry Follow-up electrolytes and kidney function tests and correct abnormalities. Keep potassium above 4 and magnesium above 2 Long-term continuation of full anticoagulation (Eliquis) is advised. Anticoagulation can be held prior to proceeding with EGD/colonoscopy at this point Cardiac-kovacs, the patient is considered low risk patient for low risk EGD/colonoscopy. You can hold anticoagulation (patient on Eliquis as outpatient) for two days prior to proceeding with EGD/colonoscopy. Evaluation and management of intractable abdominal pain/constipation as per primary team/GI. Further evaluation and management depends on the above and clinical course A total of 55 minutes was spent reviewing the patient record, examining the patient, making a diagnostic and therapeutic plan, discussing this plan with medical personnel, following up on diagnostic studies and following the patient for clinical stability excluding any and all procedures. At least 50% of this time was spent in direct, [id number] contact. Thank you for allowing me to participate in this patient's care. Further recommendations will depend on patient's clinical course. Please do not hesitate to contact me if you have any questions or concerns. This medical document was created using electronic medical record system with [employer] computerized dictation system. Although this document has been carefully reviewed, there may still be some phonetic and typographical errors. These areas are purely typographical due to the imperfection of the software programs, and do not reflect any compromise in the patient's medical care. Plan discussed with: Patient, Other (nurse) APOORVA JON MD May 21, 2024 07:55
[2024-05-21] MEDS: GOLYTELY 4L KIT PO ONE (11:49)
--- NOTE | 2024-05-21 12:02 | DVHPN2 ---
Progress Note Date Seen: May 21, 2024 Resident Creating Document: MAY MELENDREZ RESIDENT Medical Necessity Reason Pt with a Central, PICC or Fol: No Subjective Review of Systems Patient seen and examined at bedside. Patient continued to have abdominal distention with mild abdominal pain. His bowel movements. No any other new complaints. Objective vital signs Vital Sign Date Time Temp Pulse Resp B/P (MAP) Pulse Ox O2 Delivery O2 Flow Rate FiO2 05/21/24 11:51 73 137/90 05/21/24 10:00 97 Room Air 0.0 05/21/24 10:00 21 05/21/24 09:00 98.0 20 98.0 Total Intake and Output 05/20/24 05/20/24 05/21/24 15:00 23:00 07:00 Intake Total 822 ml 949 ml 100 ml Output Total 1075 ml 250 ml Balance 822 ml -126 ml -150 ml medications Current Medications Medications Dose Ordered Sig/Yesenia Route Start Time Stop Time Status Last Admin Dose Admin Temazepam 15 mg QHSP PRN PO 05/17/24 22:45 05/20/24 21:28 15 MG Ondansetron HCl 4 mg Q4HP PRN IV 05/17/24 22:45 Docusate Sodium 100 mg BIDPRN PRN PO 05/17/24 22:45 Nitroglycerin 0.4 mg Q5MINP PRN SL 05/17/24 22:45 Hydromorphone HCl 0.25 mg Q4HPRN PRN IV 05/17/24 22:45 05/19/24 05:43 0.25 MG Sucralfate 1 gm QID PO 05/18/24 06:00 05/21/24 11:49 1 GM Amiodarone HCl 200 mg HS PO 05/18/24 22:00 05/20/24 21:21 200 MG Labetalol HCl 200 mg BID PO 05/18/24 10:00 05/21/24 10:19 200 MG Tamsulosin HCl 0.4 mg DAILY PO 05/18/24 10:00 05/21/24 10:19 0.4 MG Albuterol 2.5 mg Q4HPRN PRN NEB 05/17/24 23:15 Polyethylene Glycol 17 gm DAILY PO 05/18/24 12:15 05/21/24 10:19 17 GM Metronidazole 500 mg Q8HR PO 05/18/24 14:00 05/21/24 05:16 500 MG Metoclopramide HCl 5 mg Q8HR PO 05/18/24 14:00 05/21/24 05:16 5 MG Cyclobenzaprine HCl 5 mg Q8HPRN PRN PO 05/18/24 12:45 05/21/24 05:33 5 MG Meclizine HCl 25 mg Q6HPRN PRN PO 05/19/24 11:45 Morphine Sulfate 1 mg Q4HP PRN IV 05/19/24 11:45 05/20/24 09:45 1 MG Pantoprazole Sodium 40 mg BID@0600,1700 PO 05/20/24 17:00 05/21/24 05:17 40 MG Lactulose 30 ml BID PO 05/20/24 22:00 05/21/24 10:19 30 ML Examination General Appearance: Cooperative. Well developed. Well nourished. NAD Head Exam: Normal inspection Neck Exam: Normal inspection. Non-tender. Normal alignment Pulmonary/Respiratory: Chest non-tender. Clear bilateral breath sounds Cardiovascular/Chest: Regular rate and rhythm. No murmurs. No JVD. Peripheral Pulses: 2+ Radial (R). 2+ Radial (L). 2+ Pedal (R). 2+ Pedal (L) Abdominal Exam: Normal bowel sounds. Soft. Nontender. No hepatospenomegaly. No masses, abdominal distention. Ankle Exam: Negative ankle edema Lower extremities: Negative lower extremity edema Neuro/Mental Status: A&O x4. Coherent Thoughts/Psych: Normal thought pattern. Appropriate mood and affect. Good judgement and insight Appearance: In no acute distress Skin Exam: Normal inspection. Normal color. Warm. Dry laboratory and microbiology Laboratory Tests 05/20/24 13:49 Test 05/20/24 13:49 Range/Units Serum Glucose 152 H 74-106 mg/dL Problem List/Assessment/Plan Problem List/Assessment/Plan # Abdominal pain likely due to constipation. # severe constipation # Chronic GERD # History of hemorrhoids Plan: KUB showed persistent severe stool burden. Continue with laxative and Colace. Has been ordered Fleet enema. Continue following up. -Given persistence of symptoms, patient will be keep NPO from midnight, possible EGD tomorrow. Cardiology clearance has been done by Dr. Pizarro. - Full liquid diet and advance as tolerated - continue Protonix 40 mg p.o. b.i.d. and Carafate 1 g p.o. q.i.d. - Continue laxative lactulose 30 mL p.o. b.i.d., Colace 100 mg p.o. b.i.d. - Possible EGD on Wednesday if symptoms persist - Cardiology clearance appreciated for the procedure - Hold Eliquis Plan discussed with: Patient, Other (RN) MAY MELENDREZ RESIDENT May 21, 2024 12:02
--- NOTE | 2024-05-21 12:04 | DVH ---
Exam: XY KUB ABDOMEN SINGLE VIEW Indication: abd distention Comparison: XY KUB ABDOMEN SINGLE VIEW on DOS: 05/20/24, XY KUB ABDOMEN SINGLE VIEW on DOS: 11/12/23, XY KUB ABDOMEN SINGLE VIEW on DOS: 10/15/23 Technique: 2 radiographic views of the abdomen. Findings: Nonspecific bowel-gas pattern. Generalized paucity of visualized small bowel loops. There is no definite evidence for pneumoperitoneum. No abnormal calcifications noted. Impression: Nonspecific bowel-gas pattern.
[2024-05-21] MEDS: LACTULOSE 20Gm/30ML SOLN PO SCH (13:41)
--- NOTE | 2024-05-21 15:21 | DVHPN2 ---
Progress Note Date Seen: May 21, 2024 Medical Necessity Reason Pt with a Central, PICC or Fol: No Subjective Review of Systems: CVS:Normal, RESPIRATORY:Normal, GI:Normal Objective vital signs Vital Sign Date Time Temp Pulse Resp B/P (MAP) Pulse Ox O2 Delivery O2 Flow Rate FiO2 05/21/24 13:00 97.8 67 20 128/83 (98) 98 97.8 05/21/24 10:00 Room Air 0.0 05/21/24 10:00 21 Total Intake and Output 05/20/24 05/20/24 05/21/24 15:00 23:00 07:00 Intake Total 822 ml 949 ml 100 ml Output Total 1075 ml 250 ml Balance 822 ml -126 ml -150 ml medications Current Medications Medications Dose Ordered Sig/Yesenia Route Start Time Stop Time Status Last Admin Dose Admin Temazepam 15 mg QHSP PRN PO 05/17/24 22:45 05/20/24 21:28 15 MG Ondansetron HCl 4 mg Q4HP PRN IV 05/17/24 22:45 Docusate Sodium 100 mg BIDPRN PRN PO 05/17/24 22:45 Nitroglycerin 0.4 mg Q5MINP PRN SL 05/17/24 22:45 Hydromorphone HCl 0.25 mg Q4HPRN PRN IV 05/17/24 22:45 05/19/24 05:43 0.25 MG Sucralfate 1 gm QID PO 05/18/24 06:00 05/21/24 11:49 1 GM Amiodarone HCl 200 mg HS PO 05/18/24 22:00 05/20/24 21:21 200 MG Labetalol HCl 200 mg BID PO 05/18/24 10:00 05/21/24 10:19 200 MG Tamsulosin HCl 0.4 mg DAILY PO 05/18/24 10:00 05/21/24 10:19 0.4 MG Albuterol 2.5 mg Q4HPRN PRN NEB 05/17/24 23:15 Polyethylene Glycol 17 gm DAILY PO 05/18/24 12:15 05/21/24 10:19 17 GM Metronidazole 500 mg Q8HR PO 05/18/24 14:00 05/21/24 13:41 500 MG Metoclopramide HCl 5 mg Q8HR PO 05/18/24 14:00 05/21/24 13:41 5 MG Cyclobenzaprine HCl 5 mg Q8HPRN PRN PO 05/18/24 12:45 05/21/24 05:33 5 MG Meclizine HCl 25 mg Q6HPRN PRN PO 05/19/24 11:45 Morphine Sulfate 1 mg Q4HP PRN IV 05/19/24 11:45 05/20/24 09:45 1 MG Pantoprazole Sodium 40 mg BID@0600,1700 PO 05/20/24 17:00 05/21/24 05:17 40 MG Lactulose 30 ml TID PO 05/21/24 14:00 05/21/24 13:41 30 ML Examination: GENERAL:Normal, LUNGS:Normal, CVS:Normal, ABDOMEN:Abnormal (Abdominal distention), SKIN:Normal, NEURO:Normal laboratory and microbiology Laboratory Tests 05/20/24 13:49 Test 05/20/24 13:49 Range/Units Serum Glucose 152 H 74-106 mg/dL Labs and/or images reviewed: Labs reviewed by me, Image(s) reviewed by me Problem List/Assessment/Plan Problem List/Assessment/Plan 1. Abdominal pain r/t constipation Monitor, GI consult, carafate, cathartics 2. GERD Monitor, GI consult 3. HLD Monitor, DVT prophylaxis 4. Anxiety Monitor, restart home meds Assessment/Plan Subjective Patient is awake and alert. Objective Patient was admitted for abdominal pain. Patient was recently discharged from [facility]. Patient is stating his upper endoscopy was rescheduled for August and that he has persistent abdominal pain. Patient does have multiple drug allergies. Patient was previously seen by GI. Patient was started on Protonix twice a day as well as Carafate 4 times a day. Today patient was reporting some dizziness which is likely side effect from receiving Dilaudid. Regardless patient was started on meclizine. Patient will be having EGD patient was stratified as low risk for EGD per cardiology's note. We will continue to hold Eliquis for upcoming upper endoscopy. Dr. Troy we will be planning for EGD possibly on Wednesday. Patient continues to have severe distention to abdomen, KUB shows log large stool burden. Patient denies having a bowel movement. Patient received full GoLYTELY yesterday and had small bowel movement patient continues to have severe abdominal distention, we will order another dose of GoLYTELY. Patient was advised to continue walking. Plan Cardiology consult. Patient is on chronic anticoagulation. Hold Eliquis for now. Pending possible upper endoscopy by Dr. Troy. Continue PPI. DVT prophylaxis. Monitor daily labs. Continue with GoLYTELY, encouraged walking Plan discussed with: Patient My Orders My Orders Orders - BLAIRE MCLEOD Procedure Category Date Status Time Kub Abdomen Single XY 05/21/24 Resulted View 10:40 Tap Water Enema ORDERS 05/21/24 Transmitted 10:41 Date of Service: May 21, 2024 Billing Provider: VERONICA HAYWOOD MD Common Visit Codes: [id number] INP/OBS CARE (MOD) BLAIRE MCLEOD May 21, 2024 15:21
[2024-05-22] VITALS (30 sets, daily range): BP systolic 93–149; BP diastolic 56–98; PULSE 69–146; RESP 13–24; TEMP 97.8–99; O2SAT 94–99
--- NOTE | 2024-05-22 04:18 | ECG ---
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
[2024-05-22 06:37] LABS: INR 1.05 (0.9-1.15); Partial Thromboplastin Time 26.5 SEC (24.5-34.5); Prothrombin Time 11.1 sec (9.3-11.8)
--- NOTE | 2024-05-22 08:19 | DVHPN2 ---
Progress Note - Dictate Date Seen: May 22, 2024 Medical Necessity Reason Pt with a Central, PICC or Fol: No vital signs Vital Sign Date Time Temp Pulse Resp B/P (MAP) Pulse Ox O2 Delivery O2 Flow Rate FiO2 05/22/24 05:00 98.3 69 18 134/81 (98) 98 98.3 05/21/24 20:36 Room Air 05/21/24 20:36 0 21 Total Intake and Output 05/21/24 05/21/24 05/22/24 15:00 23:00 07:00 Intake Total 994 ml 534 ml 0 ml Output Total 800 ml 250 ml Balance 994 ml -266 ml -250 ml medications Current Medications Medications Dose Ordered Sig/Yesenia Route Start Time Stop Time Status Last Admin Dose Admin Temazepam 15 mg QHSP PRN PO 05/17/24 22:45 05/21/24 22:12 15 MG Ondansetron HCl 4 mg Q4HP PRN IV 05/17/24 22:45 Docusate Sodium 100 mg BIDPRN PRN PO 05/17/24 22:45 Nitroglycerin 0.4 mg Q5MINP PRN SL 05/17/24 22:45 Hydromorphone HCl 0.25 mg Q4HPRN PRN IV 05/17/24 22:45 05/19/24 05:43 0.25 MG Sucralfate 1 gm QID PO 05/18/24 06:00 05/22/24 05:44 1 GM Amiodarone HCl 200 mg HS PO 05/18/24 22:00 05/21/24 22:07 200 MG Labetalol HCl 200 mg BID PO 05/18/24 10:00 05/21/24 22:12 200 MG Tamsulosin HCl 0.4 mg DAILY PO 05/18/24 10:00 05/21/24 10:19 0.4 MG Albuterol 2.5 mg Q4HPRN PRN NEB 05/17/24 23:15 Cancel Polyethylene Glycol 17 gm DAILY PO 05/18/24 12:15 05/21/24 10:19 17 GM Metronidazole 500 mg Q8HR PO 05/18/24 14:00 05/22/24 05:45 500 MG Metoclopramide HCl 5 mg Q8HR PO 05/18/24 14:00 05/22/24 05:47 5 MG Cyclobenzaprine HCl 5 mg Q8HPRN PRN PO 05/18/24 12:45 05/21/24 05:33 5 MG Meclizine HCl 25 mg Q6HPRN PRN PO 05/19/24 11:45 Morphine Sulfate 1 mg Q4HP PRN IV 05/19/24 11:45 05/20/24 09:45 1 MG Pantoprazole Sodium 40 mg BID@0600,1700 PO 05/20/24 17:00 05/22/24 05:45 40 MG Lactulose 30 ml TID PO 05/21/24 14:00 05/22/24 05:44 30 ML laboratory and microbiology Laboratory Tests 05/20/24 13:49 Test 05/20/24 13:49 Range/Units Serum Glucose 152 H 74-106 mg/dL Assessment/Plan Patient is a 48-year-old gentleman who presented with few days of abdominal pain/constipation. He had presented to another facility for the same. Recently, he did receive treatment for URI with antibiotics. Presentation has been considered intractable abdominal pain. Primary team/GI is considering to proceed with endoscopy/colonoscopy. Cardiology was involved for cardiac aspects of care and also risk stratification prior to EGD/colonoscopy. He denies any recent chest pain/shortness of breaths. He denies palpitation and loss of consciousness. Patient is known to our practice from outside. He does have baseline history of paroxysmal AFib and is on Eliquis as outpatient. He has had negative nuclear stress test around a year ago. Not in acute distress. No carotid bruit. No JVD. Mucosa is pink and wet. Lungs: Clear to auscultation. Cardiac: Regular, no thrill/gallop, abdomen is soft. There is no gross mass/hepatomegaly. Mild generalized abdominal tenderness is elicited. There is no rebound tenderness. Extremities reveal 1+ edema bilaterally. Dorsalis pedis is 2+ bilateral. Past medical history includes learning disability, hypertension, paroxysmal AFib (on Eliquis as outpatient), asthma, osteoarthritis, anxiety/depression, BPH, hyperlipidemia (on Repatha as outpatient), migraines, history of vitamin-D deficiency and magnesium deficiency, CKD, GERD, short episodes of SVT and mild mitral valve prolapse. He is allergic to statins and is on Repatha as outpatient. Nuclear stress test of February 2023 did not reveal ischemia and reported ejection fraction of 77%. Echocardiogram of December 24, 2022 (performed in the office) revealed ejection fraction of 65-70%, mild MR/TR/PI and mild mitral valve prolapse Echocardiogram of October 13, 2023 had revealed ejection fraction of 64%, trace MR/TR/PI Echocardiogram of March 25, 2024 revealed ejection fraction of 65-70 percent, there was no wall motion abnormality. There was trace MR/TR/PI. Creatinine: 1.15 - 1.16 Potassium: 3.5 - 4.2 Troponin (high sensitive): 5 - 4 Abdominal x-ray reported: FINDINGS: No focal evidence of airspace disease. The cardiomediastinal silhouette is within normal limits. No acute osseous lesions. Nonobstructive bowel gas pattern noted. There is no evidence for pneumoperitoneum. No abnormal calcifications noted. IMPRESSION: Non-specific gas-filled loops of bowel. Large stool burden KUB reported: History: r.o ilues Comparison: XY KUB ABDOMEN SINGLE VIEW on DOS: 11/12/23, XY KUB ABDOMEN SINGLE VIEW on DOS: 10/15/23 TECHNIQUE: Frontal views of the abdomen was obtained. FINDINGS: Bowel gas pattern is unremarkable. The lung bases are unremarkable. No acute osseous abnormality identified. IMPRESSION: Nonobstructive bowel gas pattern. Large stool burden Repeat KUB revealed: Nonspecific bowel-gas pattern. Generalized paucity of visualized small bowel loops. There is no definite evidence for pneumoperitoneum. No abnormal calcifications noted. Impression: Nonspecific bowel-gas pattern. Telemetry has revealed sinus rhythm Patient is a 48-year-old gentleman who presented with intractable abdominal pain/constipation. Does have recent treatment for URI with antibiotics. Baseline history includes atrial fibrillation/hyperlipidemia/hypertension/anxiety and depression. Cardiac-kovacs is non symptomatic. Acute coronary syndrome is not considered. To go for possible EGD/colonoscopy. Cardiac-kovacs, the patient is considered low risk patient for low risk EGD/colonoscopy. You can hold anticoagulation (patient on Eliquis as outpatient) prior to proceeding with EGD/colonoscopy Intractable abdominal pain Constipation Paroxysmal AFib Hypertension Depression BPH SVT Cardiac suggestion for management: Manage on telemetry Follow-up electrolytes and kidney function tests and correct abnormalities. Keep potassium above 4 and magnesium above 2 Long-term continuation of full anticoagulation (Eliquis) is advised. Anticoagulation can be held prior to proceeding with EGD/colonoscopy at this point Cardiac-kovacs, the patient is considered low risk patient for low risk EGD/colonoscopy. You can hold anticoagulation (patient on Eliquis as outpatient) for two days prior to proceeding with EGD/colonoscopy. Evaluation and management of intractable abdominal pain/constipation as per primary team/GI. Further evaluation and management depends on the above and clinical course A total of 55 minutes was spent reviewing the patient record, examining the patient, making a diagnostic and therapeutic plan, discussing this plan with medical personnel, following up on diagnostic studies and following the patient for clinical stability excluding any and all procedures. At least 50% of this time was spent in direct, [id number] contact. Thank you for allowing me to participate in this patient's care. Further recommendations will depend on patient's clinical course. Please do not hesitate to contact me if you have any questions or concerns. This medical document was created using electronic medical record system with [employer] computerized dictation system. Although this document has been carefully reviewed, there may still be some phonetic and typographical errors. These areas are purely typographical due to the imperfection of the software programs, and do not reflect any compromise in the patient's medical care. Plan discussed with: Patient, Other (nurse) APOORVA JON MD May 22, 2024 08:18
--- NOTE | 2024-05-22 08:47 | DVHPN2 ---
Progress Note - Dictate Date Seen: May 22, 2024 Medical Necessity Reason Pt with a Central, PICC or Fol: No vital signs Vital Sign Date Time Temp Pulse Resp B/P (MAP) Pulse Ox O2 Delivery O2 Flow Rate FiO2 05/22/24 05:00 98.3 69 18 134/81 (98) 98 98.3 05/21/24 20:36 Room Air 05/21/24 20:36 0 21 Total Intake and Output 05/21/24 05/21/24 05/22/24 15:00 23:00 07:00 Intake Total 994 ml 534 ml 0 ml Output Total 800 ml 250 ml Balance 994 ml -266 ml -250 ml medications Current Medications Medications Dose Ordered Sig/Yesenia Route Start Time Stop Time Status Last Admin Dose Admin Temazepam 15 mg QHSP PRN PO 05/17/24 22:45 05/21/24 22:12 15 MG Ondansetron HCl 4 mg Q4HP PRN IV 05/17/24 22:45 Docusate Sodium 100 mg BIDPRN PRN PO 05/17/24 22:45 Nitroglycerin 0.4 mg Q5MINP PRN SL 05/17/24 22:45 Hydromorphone HCl 0.25 mg Q4HPRN PRN IV 05/17/24 22:45 05/19/24 05:43 0.25 MG Sucralfate 1 gm QID PO 05/18/24 06:00 05/22/24 05:44 1 GM Amiodarone HCl 200 mg HS PO 05/18/24 22:00 05/21/24 22:07 200 MG Labetalol HCl 200 mg BID PO 05/18/24 10:00 05/21/24 22:12 200 MG Tamsulosin HCl 0.4 mg DAILY PO 05/18/24 10:00 05/21/24 10:19 0.4 MG Albuterol 2.5 mg Q4HPRN PRN NEB 05/17/24 23:15 Cancel Polyethylene Glycol 17 gm DAILY PO 05/18/24 12:15 05/21/24 10:19 17 GM Metronidazole 500 mg Q8HR PO 05/18/24 14:00 05/22/24 05:45 500 MG Metoclopramide HCl 5 mg Q8HR PO 05/18/24 14:00 05/22/24 05:47 5 MG Cyclobenzaprine HCl 5 mg Q8HPRN PRN PO 05/18/24 12:45 05/21/24 05:33 5 MG Meclizine HCl 25 mg Q6HPRN PRN PO 05/19/24 11:45 Morphine Sulfate 1 mg Q4HP PRN IV 05/19/24 11:45 05/20/24 09:45 1 MG Pantoprazole Sodium 40 mg BID@0600,1700 PO 05/20/24 17:00 05/22/24 05:45 40 MG Lactulose 30 ml TID PO 05/21/24 14:00 05/22/24 05:44 30 ML objective General Appearance: alert, no distress HEENT: EOMI, PERRLA, normal external inspect of ears, no icterus, no nasal drainage Neck: no carotid bruit, no jugular venous distention (JVD), no lymphadenopathy Chest: normal thorax Respiratory: clear to auscultation, normal air movement Cardiovascular: regular rate and rhythm, no diastolic murmur, no jugular venous distention (JVD), no rub, no systolic murmur Abdominal: soft, no hepatomegaly, no mass, no splenomegaly, no tenderness Genitourinary: grossly normal external Musculoskeletal: no joint tenderness, no swelling Extremities: normal pulses, no calf tenderness, no clubbing, no cyanosis, no edema Skin: no bruising, no jaundice, no rash Neurological: alert, No focal deficit laboratory and microbiology Laboratory Tests 05/20/24 13:49 Test 05/20/24 13:49 Range/Units Serum Glucose 152 H 74-106 mg/dL Problem List 1. Abdominal pain r/t constipation Monitor, GI consult, carafate, cathartics 2. GERD Monitor, GI consult 3. HLD Monitor, DVT prophylaxis 4. Anxiety Monitor, restart home meds Assessment/Plan Subjective: Patient is awake and alert. Objective: Patient is currently n.p.o. waiting for EGD today. Patient was admitted for intractable abdominal pain related to severe constipation and GERD. Plan: Continue PPI. Continue Carafate. Plan for EGD. DC planning when cleared by GI. Plan discussed with: Patient, Other MCKENNA ROTH NP May 22, 2024 08:47
[2024-05-22 09:12] LABS: Basophils # (auto) 0 10 ^3/uL (0-0.2); Basophils % (auto) 0.4 % (0.0-2.0); Eosinophils # (auto) 0.1 10 ^3/uL (0-0.8); Hematocrit 45.4 % (41.0-53.0); Hemoglobin 15.4 g/dL (13.5-17.5); Lymphocytes # (auto) 0.8 10 ^3/uL (0.4-5.4); Lymphocytes % (auto) 17.4 % (10.0-50.0); Mean Corpuscular Hemoglobin 32.9 pg (28.0-32.0); Mean Corpuscular Hgb Conc. 33.9 g/dL (32.0-36.0); Monocytes # (auto) 0.4 10 ^3/uL (0-1.3); Monocytes % (auto) 8.9 % (0.0-12.0); Neutrophils # (auto) 3.2 10 ^3/uL (1.6-8.6); Neutrophils % (auto) 70.3 % (37.0-80.0); Nucleated Red Blood Cells % 0.1 %; Platelet Count (auto) 251 10^3/uL (140-450); Red Blood Cells 4.68 10^6/uL (4.5-5.90); Red Cell Distribution Width 14.5 % (11.8-14.3); White Blood Cell 4.5 10^3/uL (4.4-10.8)
[2024-05-22 11:17] LABS: Anion Gap 10 (5-15); Calcium 10.1 mg/dL (8.7-10.4); Carbon Dioxide 25 mmol/L (20-31); Potassium 3.6 mmol/L (3.5-5.1); Sodium 143 mmol/L (136-145)
[2024-05-22 11:23] LABS: BUN/Creatinine Ratio 9.8 (10.0-20.0); Blood Urea Nitrogen 12 mg/dL (9-23); Chloride 108 mmol/L (98-107); Glucose 122 mg/dL (74-106)
[2024-05-22] MEDS ORDERED: fentaNYL CITRATE 100 MCG/2 ML VL ONE (15:09)
[2024-05-22] MEDS ORDERED: ONDANSETRON HCL 4 MG/2 ML VIAL ONE (15:09)
[2024-05-22] MEDS ORDERED: LIDOCAINE 2% (LOCAL ANESTH.) PF 5ml SDV ONE (15:09)
[2024-05-22] MEDS ORDERED: MIDAZOLAM HCL 2MG/2ML 2ml VIAL (1mg/ml) ONE ×3 (15:09→19:22)
[2024-05-22] MEDS ORDERED: GLYCOPYRROLATE 0.2 MG/ML 1ML VIAL ONE (15:09)
[2024-05-22] MEDS ORDERED: PROPOFOL 10 MG/ML 20 ML IV ONE (15:09)
--- NOTE | 2024-05-22 15:37 | DVHOP2 ---
Operative Report DATE OF OPERATION: 05/22/24 PROCEDURE: Upper Endoscopy with biopsy. PREOPERATIVE INDICATION: The patient is a 48 -year-old male undergoing endoscopy for GERD abdominal pain and history of peptic ulcer disease POSTOPERATIVE DIAGNOSES: 1. 0.5-1 cm sliding-type hiatal hernia with no significant erosive esophagitis and GE junction biopsies were obtained 2. Minimal antral gastritis otherwise normal examination up to the 2nd and 3rd part of the duodenum PROCEDURE PERFORMED BY: Mo Troy GI NURSE: SCOPE: Olympus videoendoscope. ASA CLASS: PREOPERATIVE MEDICATIONS: Versed mg, Fentanyl mcg, Benadryl mg I administered moderate sedation throughout this __ minutes procedure. An independent trained observer pushed medications at my direction, and monitored the patient's level of consciousness and physiological status throughout. PROCEDURE IN DETAIL: After obtaining an informed consent, the patient was placed on left lateral decubitus position. The patient was then sedated with the above medications. A bite block was placed between his teeth. The endoscope was then passed through the oropharynx, into the esophagus, and through the stomach and pylorus up to the second and third part of the duodenum. The endoscope was then withdrawn. The 2nd and 3rd part of the duodenal and the duodenal bulb were normal. There was good bile drainage The pre-pyloric area antrum and distal body showed minimal antral gastritis. Duodenal biopsies were obtained On retroflexion the fundus cardia and angularis were normal. Gastric biopsies were obtained. The endoscope was then withdrawn into distal distal esophagus where the patient had a 0.5 cm sliding-type hiatal hernia There was no significant erosive esophagitis and GE junction biopsies were obtained. The remaining distal and proximal esophagus and oropharynx were unremarkable The patient tolerated the procedure well without difficulty. COMPLICATIONS : None SPECIMENS: Duodenal biopsies Gastric biopsies GE junction biopsies DISPOSITION: Transfer back to the floor Stable PLAN: 1. Await for biopsy result 2. Will place pt on Protonix 40 mg p.o. daily 3. Advance diet as tolerated 4. Patient is scheduled for outpatient colonoscopy and he will be encouraged to keep his appointment MO TROY MD May 22, 2024 15:37
[2024-05-22] MEDS ORDERED: HYDROmorphone HCL 2 MG/ML VL/or syr IV PRN (15:45)
[2024-05-22] MEDS: AMIODARONE 360mg/200mL PREMIX 200 ML IV ONE (16:23)
[2024-05-22] MEDS: NITROGLYCERIN 0.4 MG SL TAB SL PRN (18:57)
[2024-05-22] MEDS ORDERED: AMIODARONE BOLUS KIT 100 ML IV ONE (19:26)
[2024-05-22] MEDS: AMIODARONE BOLUS KIT 100 ML IV ONE (19:30)
[2024-05-22 21:21] LABS: Chloride 106 mmol/L (98-107); Potassium 3.6 mmol/L (3.5-5.1); Sodium 140 mmol/L (136-145)
[2024-05-22 21:22] LABS: Anion Gap 9 (5-15); Calcium 9.9 mg/dL (8.7-10.4); Carbon Dioxide 25 mmol/L (20-31)
[2024-05-22 21:27] LABS: BUN/Creatinine Ratio 11.2 (10.0-20.0); Blood Urea Nitrogen 12 mg/dL (9-23)
[2024-05-22 21:44] LABS: Magnesium 2.2 mg/dL (1.6-2.6)
[2024-05-22 21:45] LABS: Phosphorus 3.1 mg/dL (2.4-5.1)
[2024-05-22 22:03] LABS: Glucose 158 mg/dL (74-106)
--- NOTE | 2024-05-22 23:13 | DVHINCON2 ---
Date of service: May 22, 2024 Referring Physician Mckenna Roth NP Reason for Consultation Shortness of breath History of Present Illness A 48-year-old man patient with PMHx of asthma, A-fib, hypertension, hyperlipidemia, arthritis, anemia, and anxiety who presented to ED on 05/18/24 with c/o epigastric abdominal pain radiating to his suprapubic region x 2 days. Patient also c/o constipation with his last BM, being day prior to presentation. Pt reported that he was recently seen at [facility] where he had a CT done and was told everything was normal. Patient was admitted for further care. Pulmonary consultation is requested for evaluation and management due to shortness of breath. Review of Systems: 14-point review of systems negative unless otherwise noted above. Past Medical History: Asthma, A-fib, hypertension, hyperlipidemia, arthritis, anemia, and anxiety Past Surgical History: Denies Medications: Reviewed. Allergies: Acetaminophen Amoxicillin Codeine Hydrocodone Ibuprofen Penicillins Statins Tramadol Other: Walnuts. Family History: Diabetes mellitus. No family history of premature CAD. No family history of lung disorders. Social History: Nonsmoker. No alcohol or illicit drug use. Family History: Diabetes mellitus G8 FATHER, Allergies: Coded Allergies: Acetaminophen (Verified Allergy, Unknown, 03/02/23) Amoxicillin (Verified Allergy, Unknown, 03/02/23) Codeine (Verified Allergy, Unknown, 03/02/23) Hydrocodone (Verified Allergy, Unknown, 03/24/24) Ibuprofen (Verified Allergy, Unknown, 03/02/23) Penicillins (Verified Allergy, Unknown, 03/02/23) Statins (Verified Allergy, Unknown, 03/02/23) Tramadol (Verified Allergy, Unknown, 03/02/23) Uncoded Allergies: WALNUTS (Allergy, Unknown, 03/02/23) Home Meds Active Scripts Cyclobenzaprine Hcl (Cyclobenzaprine Hcl) 10 Mg Tab, 10 MG PO TID for 10 Days, #30 TAB Prov:ZEKE FISHER MD 04/30/24 Metoclopramide Hcl (Reglan) 10 Mg Tab, 10 MG PO BID for 14 Days, #28 TAB Prov:ZEKE FISHER MD 04/30/24 Methylprednisolone (Medrol Dosepak) 4 Mg Kvng, 4 MG PO UD, #21 TAB UAD Prov:CHRISSIE SUH 04/13/24 Promethazine Hcl (Promethazine Hcl) 25 Mg Tab, 1 TAB PO Q6HPRN for 14 Days, #56 TAB Prov:BLAIRE MCLEOD RADIO REPAIRER DOMESTIC 03/26/24 Doxycycline Hyclate (DOXYCYCLINE HYCLATE) 100 Mg Tab, 1 TAB PO BID for 10 Days, #20 TAB Prov:BLAIRE MCLEOD RADIO REPAIRER DOMESTIC 03/26/24 Sucralfate (Sucralfate) 1 Gm Tab, 1 TAB PO QID for 30 Days, #120 TAB Prov:MCKENNA ROTH BUILDING CONSTRUCTION SUPERINTENDENT 11/15/23 Pantoprazole Sodium Sesquihydr (Pantoprazole Sodium) 40 Mg Tab, 1 TAB PO BID for 30 Days, #60 TAB Prov:MCKENNA ROTH BUILDING CONSTRUCTION SUPERINTENDENT 11/15/23 Amiodarone HCl (Amiodarone HCl) 200 Mg Tab, 200 MG PO HS for 30 Days, #30 TAB Prov:MCKENNA ROTH BUILDING CONSTRUCTION SUPERINTENDENT 10/16/23 Reported Medications Ketoconazole (Ketoconazole) 2 % Cre, 1 APPLIC TOP BID, #60 GRAMS 1 Refill 05/18/24 Clotrimazole (Clotrimazole) 1 % Cre, 1 APPLIC TOP Q12HR for 30 Days, APPLIC 05/18/24 Amlodipine Besylate (Amlodipine Besylate) 5 Mg Tab, 10 MG PO DAILY for 30 Days, MG 05/18/24 Atogepant (Qulipta) 60 Mg Tab, 60 MG PO, TAB 05/18/24 Metronidazole (Flagyl) 500 Mg Tab, 500 MG PO Q8HR, MG 05/18/24 Hydroxyzine HCl (Hydroxyzine Hydrochloride) 10 Mg Tab, 20 MG PO DAILYP, TAB 05/18/24 Amiodarone Hcl (Amiodarone Hcl) 200 Mg Tab, 100 MG PO BID 05/18/24 Labetalol HCl (Labetalol Hydrochloride) 200 Mg Tab, 1 TAB PO BID 03/25/24 Tamsulosin HCl (Tamsulosin Hydrochloride) 0.4 Mg Cap, 0.4 MG PO DAILY, CAP 03/25/24 Beclomethasone Dipropionate (Qvar Redihaler) 80 Mcg/Act Aer, 2 PUFF IN BID, AER 03/25/24 Docusate Sodium (Colace) 100 Mg Cap, 100 MG PO BID PRN for FOR CONSTIPATION, CAP 03/25/24 Albuterol Sulfate (Albuterol Sulfate Hfa) 108 Mcg/Act Aer, 1 PUFF INH Q4HPRN PRN for SHORTNESS OF BREATH 03/25/24 Hydroxyzine Hcl (Hydroxyzine Hcl) 25 Mg Tab, 20 MG PO DAILY PRN for FOR ITCHING, TAB 03/25/24 Magnesium Oxide (Magnesium Oxide) 400 Mg Tab, 1 TAB PO DAILY 11/14/23 Triamcinolone Acetonide (Triamcinolone Acetonide) 0.1 % Pst, 1 APPLIC TOP BID, APPLIC both arms 10/12/23 Albuterol Sulfate (VENTOLIN MDI) 90 Mcg Ih, 90 MCG IN Q4HP, INH 10/12/23 Apixaban Base (ELIQUIS) 5 Mg Tab, 5 MG PO BID, TAB 10/12/23 Meloxicam (Meloxicam) 15 Mg Tab, 1 TAB PO DAILY@BREAKFAST, #30 TAB 2 Refills 10/12/23 Evolocumab (Repatha) 140 Mg/Ml Inj, 1 ML SC, INJ take once every 24 days 10/12/23 Hctz (Hydrochlorothiazide) 25 Mg Tab, 25 MG PO DAILY, TAB 10/12/23 Dicyclomine Hcl (Dicyclomine Hcl) 20 Mg Tab, 10 MG PO TID, MG 10/12/23 Cholecalciferol (VITAMIN D3) 2,000 Unit Tab, 1 TAB PO DAILY, #30 TAB 5 Refills 10/12/23 Pravastatin Sodium (PRAVACHOL TABLET) 20 Mg Tb, 2 TAB PO DAILY, #30 TAB 5 Refills 10/12/23 Diphenhydramine Hcl (Banophen) 25 Mg Cap, 25 MG PO BID, CAP 10/12/23 Current Medications Current Medications Medications (Trade) Dose Ordered Sig/Yesenia Route PRN Reason Start Time Stop Time Status Last Admin Hydromorphone HCl (Dilaudid Injection) 0.25 mg Q10M PRN IV MODERATE PAIN (4-6 PAIN SCALE) 05/22/24 15:45 05/22/24 16:16 DC Vital Signs Vital Signs Date Time Temp Pulse Resp B/P (MAP) Pulse Ox O2 Delivery O2 Flow Rate FiO2 05/22/24 22:15 90 123/83 05/22/24 20:00 17 05/22/24 17:02 97 05/22/24 16:05 Nasal Cannula 2.0 05/22/24 16:05 99 05/22/24 15:32 98.0 98.0 Physical Exam Gen.: Patient lying in bed in no apparent distress. Breathing on room air. Head: Normocephalic, atraumatic. Eyes: EOMI/PERRLA. Ears: Normal hearing. Normal anatomy. Neck/trachea: Trachea midline, supple. Nose: Normal external anatomy. Mouth: Moist mucous membranes. Chest: Decreased air entry bilaterally. No wheezing or rhonchi. Cardiovascular: Positive S1, positive S2. Regular rate and rhythm. Abdomen: Positive bowel sounds in all 4 quadrants. Soft, non-tender, non- distended. : Deferred. Rectal: Deferred. Skin: Warm, dry. Intact. Extremities: 2+ radial pulses bilaterally. No lower extremity edema. Neuro: Awake, alert, oriented x3. No gross motor or sensory deficits. Cranial nerves II through XII intact. Gait not assessed. Labs/Diagnostic Data Labs Test 05/22/24 20:41 05/22/24 19:12 05/22/24 06:00 05/20/24 13:49 Range/Units Sodium Level 140 136-145 mmol/L Potassium Level 3.6 3.5-5.1 mmol/L Chloride Level 106 98-107 mmol/L Carbon Dioxide Level 25 20-31 mmol/L Anion Gap 9 5-15 Blood Urea Nitrogen 12 9-23 mg/dL Creatinine 1.07 0.700-1.30 mg/dL Glomerular Filtration Rate Calc 85 >90 mL/min BUN/Creatinine Ratio 11.2 10.0-20.0 Serum Glucose 158 H 74-106 mg/dL Calcium Level 9.9 8.7-10.4 mg/dL Phosphorus Level 3.1 2.4-5.1 mg/dL Magnesium Level 2.2 1.6-2.6 mg/dL Troponin I High Sensitivity 7 </=54 ng/L B-Type Natriuretic Peptide 10.09 0-100 pg/mL POC Glucose 211 H 70-106 mg/dl White Blood Count 4.5 4.4-10.8 10^3/uL Red Blood Count 4.68 4.5-5.90 10^6/uL Hemoglobin 15.4 13.5-17.5 g/dL Hematocrit 45.4 41.0-53.0 % Mean Corpuscular Volume 97.0 80.0-100.0 fL Mean Corpuscular Hemoglobin 32.9 H 28.0-32.0 pg Mean Corpuscular Hemoglobin Concent 33.9 32.0-36.0 g/dL Red Cell Distribution Width 14.5 H 11.8-14.3 % Platelet Count 251 140-450 10^3/uL Mean Platelet Volume 7.5 6.9-10.8 fL Neutrophils (%) (Auto) 70.3 37.0-80.0 % Lymphocytes (%) (Auto) 17.4 10.0-50.0 % Monocytes (%) (Auto) 8.9 0.0-12.0 % Eosinophils (%) (Auto) 3.0 0.0-7.0 % Basophils (%) (Auto) 0.4 0.0-2.0 % Neutrophils # (Auto) 3.2 1.6-8.6 10 ^3/uL Lymphocytes # (Auto) 0.8 0.4-5.4 10 ^3/uL Monocytes # (Auto) 0.4 0-1.3 10 ^3/uL Eosinophils # (Auto) 0.1 0-0.8 10 ^3/uL Basophils # (Auto) 0 0-0.2 10 ^3/uL Nucleated Red Blood Cells 0.1 % Prothrombin Time 11.1 9.3-11.8 sec Prothrombin Time INR 1.05 0.9-1.15 Activated Partial Thromboplast Time 26.5 24.5-34.5 SEC Total Bilirubin 0.5 0.2-1.0 mg/dL Aspartate Amino Transferase (AST) 19 13-40 U/L Alanine Aminotransferase (ALT) 26 7-40 U/L Alkaline Phosphatase 68 46-116 U/L Total Protein 6.5 5.7-8.2 g/dL Albumin 4.5 3.2-4.8 g/dL Test 05/17/24 20:40 05/17/24 19:45 Range/Units Lactic Acid Level 1.0 0.4-2.0 mmol/L Lipase 46 12-53 U/L Urine Color Yellow Yellow Urine Clarity Clear Clear Urine pH 6.0 5.0-9.0 Urine Specific [place] > 1.050 H 1.001-1.035 Urine Protein 1+ H Negative Urine Ketones 1+ H Negative Urine Blood Negative Negative /uL Urine Nitrite Negative Negative Urine Bilirubin Negative Negative Urine Urobilinogen Normal Negative mg/dL Urine Leukocyte Esterase Negative Negative /uL Urine RBC 1 0 - 3 /hpf Urine Microscopic WBC < 1 0-3 /HPF Urine Squamous Epithelial Cells None seen <5 /hpf Urine Bacteria None seen None Seen /hpf Urine Glucose Normal Normal mg/dL Assessment Impression: Dyspnea Chest pain Abdominal pain GERD Hyperlipidemia Anxiety Plan: On room air Supplemental oxygen PRN Titrate to keep O2 sats above 92%. Patient c/o chest pain STAT ECG obtained, showed peaked T waves in V1 to V4 Follow up Cardiology recommendations. Patient s/p EGD. Follow up GI recommendations Continue antibiotics Pain control Avoid oversedation MiraLax for constipation Monitor renal function. Monitor electrolytes. Supplement as necessary. Monitor ins and outs. GI/DVT prophylaxis. Prognosis: Poor given patient's multiple co-morbidities. Condition: Critical Rest of plan per hospitalist and other consultants. A total of 35 minutes of critical care time was spent reviewing the patient record, examining the patient, making a diagnostic and therapeutic plan, discussing this plan with the medical personnel, following up on diagnostic studies and following the patient for clinical stability excluding any and all procedures. At least 50% of this time was spent in direct, [id number] contact . Thank you, JOSE Roth, for allowing me to participate in this patient's care. Further recommendations will depend on the patient's clinical course. Please do not hesitate to contact me if you have any questions or concerns. This medical document was created using an electronic medical record system with [employer] dictation system. Although these documentations are being carefully reviewed, there may still be some phonetic and typographical changes. The errors are purely typographical, due to imperfection on the software program, and do not reflect any compromise in the patient's medical care. Plan discussed with: Patient, Other (AILYN Garcia/JOSE Roth/) ALTON LACKEY MD May 22, 2024 23:13
[2024-05-23] VITALS (41 sets, daily range): BP systolic 82–148; BP diastolic 50–91; PULSE 60–84; RESP 12–26; TEMP 98–99; O2SAT 94–98
[2024-05-23] MEDS: AMIODARONE 360mg/200mL PREMIX 200 ML IV SCH (02:00)
[2024-05-23 04:05] LABS: Potassium 3.7 mmol/L (3.5-5.1); Sodium 140 mmol/L (136-145)
--- NOTE | 2024-05-23 04:05 | RESUS ---
CODE ASSIST ASSESSSMENT Initial Information Code Assist Date: May 22, 2024 Code Assist Time: 19:07 Location of Arrest: ICU (Central) Room # 222B Provider Name RODERICK WEALTH MANAGEMENT DIRECTOR Time Notified: 19:07 Time PMD returned call: :07 Situation Staff concerned/worried, speci: HR >130 Situation comment: PATIENT HEART RATE 190-198 AND SUSTAINING WITH UN-RESOLVING CHEST PAIN 01/12. CODE ASSIST CALLED. Background Background: 48 year old male presents to the ED with a chief complaint of abdominal pain onset 2 days. Patient states he has been experiencing abdominal pain, epigastric region radiates to suprapubic region for the past 2 days. Patient is also experiencing constipation, last bowel movement was yesterday, was seen at [facility] had a CT scan with contrast and was told it was unremarkable for anything acute and he should f/u with his GI specialist. He was prescribed stool softeners. Patient states he was seen [place] [facility] [place] due to sore throat and was prescribed antibiotics. Today pt had an endoscopy, while in recovery pt had afib rvr rate above 180, pt was given an amiodorone bolus and started on an amiodorone drip. Assessment Temperature (Fahrenheit): 98.7 Blood Pressure Systolic: 104 Blood Pressure Diastolic: 67 Respiratory Rate: 22 O2 Sat by Pulse Oximetry: 98 Assessment comment: pt aaox4, c/o of having chest pain since the afternoon, cm afib rvr hr 120 - 160 on arrival to [facility]. bp 104/67 hr 132 Recommendations/Interventions Medications and Responses #1: Medication Time: 19:20 Route of Administration: IV Medication Comment: versed 2mg iv Heart Rate: 136 EKG Rhythm: Atrial Fibrillation Blood Pressure Systolic: 100 Blood Pressure Diastolic: 70 Respiratory Rate: 20 O2 Sat by Pulse Oximetry: 98 Comment monitor was placed on synchronized mode, and pt was shocked at 120. Medications and Responses #2: Medication Time: 19:22 Route of Administration: IV Medication Comment: versed 2mg Heart Rate: 148 EKG Rhythm: Atrial Fibrillation Blood Pressure Systolic: 102 Blood Pressure Diastolic: 68 Respiratory Rate: 20 O2 Sat by Pulse Oximetry: 100 Comment monitor was placed on synchronized mode, and pt was shocked at 200. Medications and Responses #3: Medication Time: 19:25 Route of Administration: IV Medication Comment: amiodorone 75 mg iv bolus Heart Rate: 156 EKG Rhythm: Atrial Fibrillation Blood Pressure Systolic: 100 Blood Pressure Diastolic: 62 Respiratory Rate: 20 O2 Sat by Pulse Oximetry: 98 Procedures: Cardioversion Outcome Outcome: Transfer to ICU Team Members Team Members RODERICK WEALTH MANAGEMENT DIRECTOR, SHIRA RESIDENT, FREDDY ROBERTSON , DB RN, EDGAR RN, CECILY RN, Beth SLATER RT FREDDY SALGADO May 23, 2024 04:05
[2024-05-23 04:06] LABS: Anion Gap 7 (5-15); Calcium 9.6 mg/dL (8.7-10.4); Carbon Dioxide 24 mmol/L (20-31)
[2024-05-23 04:11] LABS: BUN/Creatinine Ratio 11.4 (10.0-20.0); Blood Urea Nitrogen 13 mg/dL (9-23)
[2024-05-23 04:31] LABS: Chloride 109 mmol/L (98-107); Glucose 138 mg/dL (74-106)
--- NOTE | 2024-05-23 09:18 | DVHPN2 ---
Progress Note - Dictate Date Seen: May 23, 2024 Medical Necessity Reason Pt with a Central, PICC or Fol: No vital signs Vital Sign Date Time Temp Pulse Resp B/P (MAP) Pulse Ox O2 Delivery O2 Flow Rate FiO2 05/23/24 06:00 68 05/23/24 06:00 96 Nasal Cannula* 2 28 05/23/24 04:45 20 102/72 (82) 05/23/24 04:00 98.9 98.9 Total Intake and Output 05/22/24 05/22/24 05/23/24 15:00 23:00 07:00 Intake Total 1159.8 ml 1099.84 ml Output Total 550 ml 150 ml Balance 609.8 ml 949.84 ml medications Current Medications Medications Dose Ordered Sig/Yesenia Route Start Time Stop Time Status Last Admin Dose Admin Temazepam 15 mg QHSP PRN PO 05/17/24 22:45 05/22/24 23:13 15 MG Ondansetron HCl 4 mg Q4HP PRN IV 05/17/24 22:45 Docusate Sodium 100 mg BIDPRN PRN PO 05/17/24 22:45 Nitroglycerin 0.4 mg Q5MINP PRN SL 05/17/24 22:45 05/22/24 18:57 0.4 MG Hydromorphone HCl 0.25 mg Q4HPRN PRN IV 05/17/24 22:45 05/19/24 05:43 0.25 MG Sucralfate 1 gm QID PO 05/18/24 06:00 05/23/24 06:00 1 GM Labetalol HCl 200 mg BID PO 05/18/24 10:00 05/22/24 22:15 200 MG Tamsulosin HCl 0.4 mg DAILY PO 05/18/24 10:00 05/22/24 12:54 0.4 MG Albuterol 2.5 mg Q4HPRN PRN NEB 05/17/24 23:15 Cancel Polyethylene Glycol 17 gm DAILY PO 05/18/24 12:15 05/22/24 12:54 17 GM Metronidazole 500 mg Q8HR PO 05/18/24 14:00 05/23/24 06:00 500 MG Metoclopramide HCl 5 mg Q8HR PO 05/18/24 14:00 05/22/24 22:14 5 MG Cyclobenzaprine HCl 5 mg Q8HPRN PRN PO 05/18/24 12:45 05/21/24 05:33 5 MG Meclizine HCl 25 mg Q6HPRN PRN PO 05/19/24 11:45 Morphine Sulfate 1 mg Q4HP PRN IV 05/19/24 11:45 05/22/24 18:40 1 MG Pantoprazole Sodium 40 mg BID@0600,1700 PO 05/20/24 17:00 05/23/24 06:00 40 MG Lactulose 30 ml TID PO 05/21/24 14:00 05/22/24 05:44 30 ML Amiodarone HCl 200 mg BID PO 05/23/24 10:00 Apixaban 5 mg BID PO 05/23/24 10:00 laboratory and microbiology Laboratory Tests 05/23/24 03:00 05/22/24 06:00 Test 05/23/24 03:00 Range/Units Serum Glucose 138 H 74-106 mg/dL Assessment/Plan After EGD, had afib with RVR, started on Amio drip. Later needed cardioversion to NSR. Being managed in ICU. Patient is a 48-year-old gentleman who presented with few days of abdominal pain/constipation. He had presented to another facility for the same. Recently, he did receive treatment for URI with antibiotics. Presentation has been considered intractable abdominal pain. Primary team/GI is considering to proceed with endoscopy/colonoscopy. Cardiology was involved for cardiac aspects of care and also risk stratification prior to EGD/colonoscopy. He denies any recent chest pain/shortness of breaths. He denies palpitation and loss of consciousness. Patient is known to our practice from outside. He does have baseline history of paroxysmal AFib and is on Eliquis as outpatient. He has had negative nuclear stress test around a year ago. Not in acute distress. No carotid bruit. No JVD. Mucosa is pink and wet. Lungs: Clear to auscultation. Cardiac: Regular, no thrill/gallop, abdomen is soft. There is no gross mass/hepatomegaly. Mild generalized abdominal tenderness is elicited. There is no rebound tenderness. Extremities reveal 1+ edema bilaterally. Dorsalis pedis is 2+ bilateral. Past medical history includes learning disability, hypertension, paroxysmal AFib (on Eliquis as outpatient), asthma, osteoarthritis, anxiety/depression, BPH, hyperlipidemia (on Repatha as outpatient), migraines, history of vitamin-D deficiency and magnesium deficiency, CKD, GERD, short episodes of SVT and mild mitral valve prolapse. He is allergic to statins and is on Repatha as outpatient. Nuclear stress test of February 2023 did not reveal ischemia and reported ejection fraction of 77%. Echocardiogram of December 24, 2022 (performed in the office) revealed ejection fraction of 65-70%, mild MR/TR/PI and mild mitral valve prolapse Echocardiogram of October 13, 2023 had revealed ejection fraction of 64%, trace MR/TR/PI Echocardiogram of March 25, 2024 revealed ejection fraction of 65-70 percent, there was no wall motion abnormality. There was trace MR/TR/PI. Creatinine: 1.15 - 1.16 - 1.23 - 1.07 - 1.14 Potassium: 3.5 - 4.2 - 3.6 - 3.6 - 3.7 Troponin (high sensitive): 5 - 4 - 7 BNP: 10.09 Abdominal x-ray reported: FINDINGS: No focal evidence of airspace disease. The cardiomediastinal silhouette is within normal limits. No acute osseous lesions. Nonobstructive bowel gas pattern noted. There is no evidence for pneumoperitoneum. No abnormal calcifications noted. IMPRESSION: Non-specific gas-filled loops of bowel. Large stool burden KUB reported: History: r.o ilues Comparison: XY KUB ABDOMEN SINGLE VIEW on DOS: 11/12/23, XY KUB ABDOMEN SINGLE VIEW on DOS: 10/15/23 TECHNIQUE: Frontal views of the abdomen was obtained. FINDINGS: Bowel gas pattern is unremarkable. The lung bases are unremarkable. No acute osseous abnormality identified. IMPRESSION: Nonobstructive bowel gas pattern. Large stool burden Repeat KUB revealed: Nonspecific bowel-gas pattern. Generalized paucity of visualized small bowel loops. There is no definite evidence for pneumoperitoneum. No abnormal calcifications noted. Impression: Nonspecific bowel-gas pattern. Telemetry has revealed sinus rhythm. Had episode of a-fib with RVR after EGD. He was cardioverted to NSR later Patient is a 48-year-old gentleman who presented with intractable abdominal pain/constipation. Does have recent treatment for URI with antibiotics. Baseline history includes atrial fibrillation/hyperlipidemia/hypertension/anxiety and depression. Cardiac-kovacs is non symptomatic. Acute coronary syndrome is not considered. To go for possible EGD/colonoscopy. Cardiac-kovacs, the patient is considered low risk patient for low risk EGD/colonoscopy. You can hold anticoagulation (patient on Eliquis as outpatient) prior to proceeding with EGD/colonoscopy. After EGD, had afib with RVR, started on Amio drip. Later needed cardioversion to NSR. Being managed in ICU. Intractable abdominal pain Constipation Paroxysmal AFib Hypertension Depression BPH SVT A-fib with RVR, s/p cardioversion Cardiac suggestion for management: Management in ICU Follow-up electrolytes and kidney function tests and correct abnormalities. Keep potassium above 4 and magnesium above 2 Long-term continuation of full anticoagulation (Eliquis) is advised. IV Amiodarone. Start oral amiodarone also Full anticoagulation Evaluation and management of intractable abdominal pain/constipation as per primary team/GI. Further evaluation and management depends on the above and clinical course A total of 75 minutes was spent reviewing the patient record, examining the patient, making a diagnostic and therapeutic plan, discussing this plan with medical personnel, following up on diagnostic studies and following the patient for clinical stability excluding any and all procedures. At least 50% of this time was spent in direct, [id number] contact. Thank you for allowing me to participate in this patient's care. Further recommendations will depend on patient's clinical course. Please do not hesitate to contact me if you have any questions or concerns. This medical document was created using electronic medical record system with [email or web address] computerized dictation system. Although this document has been carefully reviewed, there may still be some phonetic and typographical errors. These areas are purely typographical due to the imperfection of the software programs, and do not reflect any compromise in the patient's medical care. Plan discussed with: Patient, Other (nurse) APOORVA JON MD May 23, 2024 09:18
--- NOTE | 2024-05-23 10:03 | ECG ---
[facility] Test Date: 2024-05-22 Test Time: 18:32:35 Pat Name: LUIS MIGUEL JOSHI Department: Respiratoy Room: 0215T Gender: M Egg Candler: NIK : 1975 Requested By: MCKENNA ROTH Order Number: [id number] Reading MD: James Moses Measurements Intervals [place] Rate: 150 P: 0 ME: 0 QRS: 6 QRSD: 84 T: 88 QT: 282 QTc: 446 Interpretive Statements Atrial fibrillation Abnormal R-wave progression, late transition Probable LVH with secondary repol abnrm Anterior ST elevation, probably due to LVH Baseline wander in lead(s) V2 Electronically Signed On 05-25-2024 20:53:42 PST by James Moses Please click the below link to view image of tracing.
[2024-05-23] MEDS: APIXABAN 5 MG TAB PO SCH (10:23)
[2024-05-23] MEDS: AMIODARONE HCL 200 MG TAB PO SCH (10:23)
--- NOTE | 2024-05-23 11:08 | ECG ---
[facility] Test Date: 2024-05-22 Test Time: 20:01:57 Pat Name: LUIS MIGUEL JOSHI Department: Room: 0215T Gender: M Cardiopulmonary Technician And Eeg Tech: Pablo DURBIN : 1975 Requested By: ALTON LACKEY Order Number: [id number] Reading MD: James Moses Measurements Intervals [place] Rate: 97 P: 56 GA: 148 QRS: 7 QRSD: 86 T: 19 QT: 346 QTc: 439 Interpretive Statements Normal sinus rhythm Right atrial enlargement Electronically Signed On 05-25-2024 20:55:22 PST by James Moses Please click the below link to view image of tracing.
--- NOTE | 2024-05-23 12:41 | DVHPN2 ---
Progress Note - Dictate Date Seen: May 23, 2024 Medical Necessity Reason Pt with a Central, PICC or Fol: No vital signs Vital Sign Date Time Temp Pulse Resp B/P (MAP) Pulse Ox O2 Delivery O2 Flow Rate FiO2 05/23/24 11:24 81 131/66 05/23/24 11:11 18 05/23/24 11:00 97 05/23/24 10:00 Nasal Cannula* 1 24 05/23/24 08:00 98.6 98.6 Total Intake and Output 05/22/24 05/22/24 05/23/24 15:00 23:00 07:00 Intake Total 1159.8 ml 1099.84 ml Output Total 550 ml 150 ml Balance 609.8 ml 949.84 ml medications Current Medications Medications Dose Ordered Sig/Yesenia Route Start Time Stop Time Status Last Admin Dose Admin Temazepam 15 mg QHSP PRN PO 05/17/24 22:45 05/22/24 23:13 15 MG Ondansetron HCl 4 mg Q4HP PRN IV 05/17/24 22:45 Docusate Sodium 100 mg BIDPRN PRN PO 05/17/24 22:45 Nitroglycerin 0.4 mg Q5MINP PRN SL 05/17/24 22:45 05/22/24 18:57 0.4 MG Hydromorphone HCl 0.25 mg Q4HPRN PRN IV 05/17/24 22:45 05/19/24 05:43 0.25 MG Sucralfate 1 gm QID PO 05/18/24 06:00 05/23/24 12:16 1 GM Labetalol HCl 200 mg BID PO 05/18/24 10:00 05/23/24 10:24 200 MG Tamsulosin HCl 0.4 mg DAILY PO 05/18/24 10:00 05/23/24 10:24 0.4 MG Albuterol 2.5 mg Q4HPRN PRN NEB 05/17/24 23:15 Cancel Polyethylene Glycol 17 gm DAILY PO 05/18/24 12:15 05/22/24 12:54 17 GM Metronidazole 500 mg Q8HR PO 05/18/24 14:00 05/23/24 06:00 500 MG Metoclopramide HCl 5 mg Q8HR PO 05/18/24 14:00 05/22/24 22:14 5 MG Cyclobenzaprine HCl 5 mg Q8HPRN PRN PO 05/18/24 12:45 05/21/24 05:33 5 MG Meclizine HCl 25 mg Q6HPRN PRN PO 05/19/24 11:45 Morphine Sulfate 1 mg Q4HP PRN IV 05/19/24 11:45 05/23/24 10:41 1 MG Pantoprazole Sodium 40 mg BID@0600,1700 PO 05/20/24 17:00 05/23/24 06:00 40 MG Lactulose 30 ml TID PO 05/21/24 14:00 05/22/24 05:44 30 ML Amiodarone HCl 200 mg BID PO 05/23/24 10:00 05/23/24 10:23 200 MG Apixaban 5 mg BID PO 05/23/24 10:00 05/23/24 10:23 5 MG objective General Appearance: alert, no distress HEENT: EOMI, PERRLA, normal external inspect of ears, no icterus, no nasal drainage Neck: no carotid bruit, no jugular venous distention (JVD), no lymphadenopathy Chest: normal thorax Respiratory: clear to auscultation, normal air movement Cardiovascular: regular rate and rhythm, no diastolic murmur, no jugular venous distention (JVD), no rub, no systolic murmur Abdominal: soft, no hepatomegaly, no mass, no splenomegaly, no tenderness Genitourinary: grossly normal external Musculoskeletal: no joint tenderness, no swelling Extremities: normal pulses, no calf tenderness, no clubbing, no cyanosis, no edema Skin: no bruising, no jaundice, no rash Neurological: alert, No focal deficit laboratory and microbiology Laboratory Tests 05/23/24 03:00 05/22/24 06:00 Test 05/23/24 03:00 Range/Units Serum Glucose 138 H 74-106 mg/dL Problem List 1. Abdominal pain r/t constipation Monitor, GI consult, carafate, cathartics 2. GERD Monitor, GI consult 3. HLD Monitor, DVT prophylaxis 4. Anxiety Monitor, restart home meds Assessment/Plan Subjective: Patient is awake and alert. Objective: Patient was upgraded to ICU last night. Patient is status post EGD by Dr. Sammy Troy yesterday. Patient developed AFib with RVR while in the Recovery Room. Patient received a total of two IV boluses of amiodarone and was cardioverted x2. Patient is now in sinus rhythm and is currently on amiodrip. BNP is 10. Patient has no complaints of chest pain. EGD shows minimal gastritis. Plan: Continue medications as ordered by cardiology. Continue Protonix as ordered by GI. Discharge planned for tomorrow if cleared by cardiology. Plan discussed with: Patient, Other MCKENNA ROTH NP May 23, 2024 12:41
[2024-05-23] MEDS: CALCIUM CARB 500 MG CHEW TAB PO SCH (13:23)
[2024-05-23] MEDS: guaiFENesin-DM 100/10mg/5ml SYR PO PRN (13:47)
--- NOTE | 2024-05-23 16:00 | DVH ---
CHEST RADIOGRAPH Indication: cough Technique: Single frontal view of the chest was obtained Comparison: XY CHEST PORTABLE on DOS: 03/24/24, XY CHEST PORTABLE on DOS: 02/11/24, XY CHEST PORTABLE on DOS: 11/12/23, XY CHEST PORTABLE on DOS: 10/12/23 FINDINGS: Lines and Tubes: None Lungs: No focal consolidation. Pleura: No effusion. No pneumothorax. Cardiomediastinal contours: Unremarkable Bones: No acute osseous abnormality. IMPRESSION: No acute cardiopulmonary disease.
--- NOTE | 2024-05-23 17:28 | DVHPN2 ---
Progress Note Date Seen: May 23, 2024 Resident Creating Document: DOMINGA ESTRADA RESIDENT Medical Necessity Reason Pt with a Central, PICC or Fol: No Subjective Review of Systems Patient was seen and examined on the bedside. He is alert oriented x3. Complaint of chest discomfort and abdominal pain. patient had code assist yesterday due to AFib with RVR. The patient is currently in sinus rhythm with controlled heart rate Objective vital signs Vital Sign Date Time Temp Pulse Resp B/P (MAP) Pulse Ox O2 Delivery O2 Flow Rate FiO2 05/23/24 17:00 73 12 116/67 (83) 95 05/23/24 16:00 Room Air* 0 21 05/23/24 16:00 98.9 98.9 Total Intake and Output 05/22/24 05/22/24 05/23/24 15:00 23:00 07:00 Intake Total 1159.8 ml 1099.84 ml Output Total 550 ml 150 ml Balance 609.8 ml 949.84 ml medications Current Medications Medications Dose Ordered Sig/Yesenia Route Start Time Stop Time Status Last Admin Dose Admin Temazepam 15 mg QHSP PRN PO 05/17/24 22:45 05/22/24 23:13 15 MG Ondansetron HCl 4 mg Q4HP PRN IV 05/17/24 22:45 Docusate Sodium 100 mg BIDPRN PRN PO 05/17/24 22:45 Nitroglycerin 0.4 mg Q5MINP PRN SL 05/17/24 22:45 05/22/24 18:57 0.4 MG Hydromorphone HCl 0.25 mg Q4HPRN PRN IV 05/17/24 22:45 05/19/24 05:43 0.25 MG Sucralfate 1 gm QID PO 05/18/24 06:00 05/23/24 12:16 1 GM Labetalol HCl 200 mg BID PO 05/18/24 10:00 05/23/24 10:24 200 MG Tamsulosin HCl 0.4 mg DAILY PO 05/18/24 10:00 05/23/24 10:24 0.4 MG Albuterol 2.5 mg Q4HPRN PRN NEB 05/17/24 23:15 Cancel Polyethylene Glycol 17 gm DAILY PO 05/18/24 12:15 05/22/24 12:54 17 GM Metoclopramide HCl 5 mg Q8HR PO 05/18/24 14:00 05/23/24 13:39 5 MG Cyclobenzaprine HCl 5 mg Q8HPRN PRN PO 05/18/24 12:45 05/21/24 05:33 5 MG Meclizine HCl 25 mg Q6HPRN PRN PO 05/19/24 11:45 Morphine Sulfate 1 mg Q4HP PRN IV 05/19/24 11:45 05/23/24 10:41 1 MG Pantoprazole Sodium 40 mg BID@0600,1700 PO 05/20/24 17:00 05/23/24 06:00 40 MG Lactulose 30 ml TID PO 05/21/24 14:00 05/22/24 05:44 30 ML Amiodarone HCl 200 mg BID PO 05/23/24 10:00 05/23/24 10:23 200 MG Apixaban 5 mg BID PO 05/23/24 10:00 05/23/24 10:23 5 MG Guaifenesin/ Dextromethorphan 10 ml Q4HP PRN PO 05/23/24 13:15 05/23/24 13:47 10 ML Calcium Carbonate 500 mg TIDWM PO 05/23/24 13:15 05/23/24 13:23 500 MG Examination Physical examination: General Appearance: Alert, Oriented X3, Cooperative, No acute distress HEENT: Atraumatic, PERRLA, EOMI, Mucous membrane moist/pink Respiratory: Clear to auscultation, Normal air movement Cardiovascular: Regular rate, Normal S1, Normal S2, No murmurs, no chest wall tenderness Abdominal: Normal bowel sounds, Soft, No tenderness, No hepatospenomegaly, No masses Extremities: No clubbing, No cyanosis, No edema, Normal pulses, No tenderness/swelling Skin: No rashes, No breakdown, No significant lesion Neuro: Normal gait, Normal speech, Strength at 5/5 X4 ext, Normal tone, Sensation intact, Cranial nerves 3-12 NL, Reflexes 2+ Psych/Mental Status: Mental status NL, Mood NL laboratory and microbiology Laboratory Tests 05/23/24 03:00 05/22/24 06:00 Test 05/23/24 03:00 Range/Units Serum Glucose 138 H 74-106 mg/dL Microbiology Date/Time Source Procedure Growth Status 05/22/24 20:18 Nose MRSA Screen - Final Complete Labs and/or images reviewed: Labs reviewed by me, Image(s) reviewed by me Problem List/Assessment/Plan Problem List/Assessment/Plan Assesment: # Chest pain ruled out ACS by cardiology. # AFib with RVR and secondary hypercoagulable state # Abdominal pain likely due to constipation. # Chronic GERD # History of hemorrhoids Patient underwent EGD on 05/22/24 revealed 1. 0.5-1 cm sliding-type hiatal hernia with no significant erosive esophagitis and GE junction biopsies were obtained and Minimal antral gastritis otherwise normal examination up to the 2nd and 3rd part of the duodenum. Plan: - Full liquid diet and advance as tolerated - continue Protonix 40 mg p.o. b.i.d. and Carafate 1 g p.o. q.i.d. - Continue laxative lactulose 30 mL p.o. b.i.d., Colace 100 mg p.o. b.i.d. - Continue eloquis - If patient's symptoms improve and is discharged recommend colonoscopy on an outpatient basis. Plan discussed with Dr. Troy Plan discussed with: Patient, Other DOMINGA ESTRADA RESIDENT May 23, 2024 17:28
--- NOTE | 2024-05-23 23:19 | DVHPN2 ---
Progress Note - Dictate Date Seen: May 23, 2024 Medical Necessity Reason Pt with a Central, PICC or Fol: No Subjective Patient seen and examined at bedside. Currently on supplemental oxygen Overnight events reviewed. vital signs Vital Sign Date Time Temp Pulse Resp B/P (MAP) Pulse Ox O2 Delivery O2 Flow Rate FiO2 05/23/24 23:01 75 148/91 05/23/24 21:00 18 97 05/23/24 20:00 Room Air* 0 21 05/23/24 16:00 98.9 98.9 Total Intake and Output 05/22/24 05/22/24 05/23/24 15:00 23:00 07:00 Intake Total 1159.8 ml 1099.84 ml Output Total 550 ml 150 ml Balance 609.8 ml 949.84 ml medications Current Medications Medications Dose Ordered Sig/Yesenia Route Start Time Stop Time Status Last Admin Dose Admin Temazepam 15 mg QHSP PRN PO 05/17/24 22:45 05/22/24 23:13 15 MG Ondansetron HCl 4 mg Q4HP PRN IV 05/17/24 22:45 Docusate Sodium 100 mg BIDPRN PRN PO 05/17/24 22:45 Nitroglycerin 0.4 mg Q5MINP PRN SL 05/17/24 22:45 05/22/24 18:57 0.4 MG Hydromorphone HCl 0.25 mg Q4HPRN PRN IV 05/17/24 22:45 05/19/24 05:43 0.25 MG Sucralfate 1 gm QID PO 05/18/24 06:00 05/23/24 22:52 1 GM Labetalol HCl 200 mg BID PO 05/18/24 10:00 05/23/24 23:01 200 MG Tamsulosin HCl 0.4 mg DAILY PO 05/18/24 10:00 05/23/24 10:24 0.4 MG Albuterol 2.5 mg Q4HPRN PRN NEB 05/17/24 23:15 Cancel Polyethylene Glycol 17 gm DAILY PO 05/18/24 12:15 05/22/24 12:54 17 GM Metoclopramide HCl 5 mg Q8HR PO 05/18/24 14:00 05/23/24 22:53 5 MG Cyclobenzaprine HCl 5 mg Q8HPRN PRN PO 05/18/24 12:45 05/21/24 05:33 5 MG Meclizine HCl 25 mg Q6HPRN PRN PO 05/19/24 11:45 Morphine Sulfate 1 mg Q4HP PRN IV 05/19/24 11:45 05/23/24 10:41 1 MG Pantoprazole Sodium 40 mg BID@0600,1700 PO 05/20/24 17:00 05/23/24 17:26 40 MG Lactulose 30 ml TID PO 05/21/24 14:00 05/22/24 05:44 30 ML Amiodarone HCl 200 mg BID PO 05/23/24 10:00 05/23/24 22:53 200 MG Apixaban 5 mg BID PO 05/23/24 10:00 05/23/24 22:53 5 MG Guaifenesin/ Dextromethorphan 10 ml Q4HP PRN PO 05/23/24 13:15 05/23/24 13:47 10 ML Calcium Carbonate 500 mg TIDWM PO 05/23/24 13:15 05/23/24 19:44 500 MG objective Gen.: Patient lying in bed in no apparent distress. On supplemental oxygen. Head: Normocephalic, atraumatic. Eyes: EOMI/PERRLA. Ears: Normal hearing. Normal anatomy. Neck/trachea: Trachea midline, supple. Nose: Normal external anatomy. Mouth: Moist mucous membranes. Chest: Decreased air entry bilaterally. No wheezing or rhonchi. Cardiovascular: Positive S1, positive S2. Regular rate and rhythm. Abdomen: Positive bowel sounds in all 4 quadrants. Soft, non-tender, non- distended. : Deferred. Rectal: Deferred. Skin: Warm, dry. Intact. Extremities: 2+ radial pulses bilaterally. No lower extremity edema. Neuro: Awake, alert, oriented x3. No gross motor or sensory deficits. Cranial nerves II through XII intact. Gait not assessed. laboratory and microbiology Laboratory Tests 05/23/24 03:00 05/22/24 06:00 Test 05/23/24 03:00 Range/Units Serum Glucose 138 H 74-106 mg/dL Assessment/Plan Impression: Dyspnea Chest pain Abdominal pain GERD Hyperlipidemia Anxiety Events: Currently on supplemental oxygen, 2 LPM NC Taper O2 as tolerated Pt required code assist yesterday due to AFib with RVR -currently in sinus rhythm with controlled heart rate On amiodarone Cardiology recs appreciated. Continue antibiotics Continue bowel regimen for constipation. Labs and imaging reviewed. Rest of plan as noted below. Plan: Supplemental oxygen Titrate to keep O2 sats above 92%. STAT ECG obtained on 05/23 showed peaked T waves in V1 to V4 s/p code assist due to AFib with RVR -currently in sinus rhythm with controlled heart rate Cardiology recommendations appreciated. Patient s/p EGD. GI recommendations appreciated Continue antibiotics Pain control Avoid oversedation Bowel regimen for constipation Monitor renal function. Monitor electrolytes. Supplement as necessary. Monitor ins and outs. GI/DVT prophylaxis. Prognosis: Guarded given patient's multiple co-morbidities. Rest of plan per hospitalist and other consultants. Thank you, JOSE Yuan, for allowing me to participate in this patient's care. Further recommendations will depend on the patient's clinical course. Please do not hesitate to contact me if you have any questions or concerns. This medical document was created using an electronic medical record system with [employer] computerized dictation system. Although these documentations are being carefully reviewed, there may still be some phonetic and typographical changes. The errors are purely typographical, due to imperfection on the software program, and do not reflect any compromise in the patient's medical care. Plan discussed with: Patient, Other (AILYN Clark) ALTON LACKEY MD May 23, 2024 23:19
[2024-05-24] VITALS (7 sets, daily range): BP systolic 113–148; BP diastolic 69–85; PULSE 66–80; RESP 15–20; TEMP 98.2–98.5; O2SAT 94–99
--- NOTE | 2024-05-24 06:12 | DVHPN2 ---
Progress Note - Dictate Date Seen: May 24, 2024 Medical Necessity Reason Pt with a Central, PICC or Fol: No vital signs Vital Sign Date Time Temp Pulse Resp B/P (MAP) Pulse Ox O2 Delivery O2 Flow Rate FiO2 05/24/24 01:00 98.2 70 20 113/69 (84) 97 98.2 05/23/24 23:07 Room Air* 0 21 Total Intake and Output 05/23/24 05/23/24 05/24/24 15:00 23:00 07:00 Intake Total 1076.62 ml 1579.96 ml Output Total 1900 ml Balance 1076.62 ml -320.04 ml medications Current Medications Medications Dose Ordered Sig/Yesenia Route Start Time Stop Time Status Last Admin Dose Admin Temazepam 15 mg QHSP PRN PO 05/17/24 22:45 05/23/24 23:38 15 MG Ondansetron HCl 4 mg Q4HP PRN IV 05/17/24 22:45 Docusate Sodium 100 mg BIDPRN PRN PO 05/17/24 22:45 Nitroglycerin 0.4 mg Q5MINP PRN SL 05/17/24 22:45 05/22/24 18:57 0.4 MG Hydromorphone HCl 0.25 mg Q4HPRN PRN IV 05/17/24 22:45 05/19/24 05:43 0.25 MG Sucralfate 1 gm QID PO 05/18/24 06:00 05/24/24 05:21 1 GM Labetalol HCl 200 mg BID PO 05/18/24 10:00 05/23/24 23:01 200 MG Tamsulosin HCl 0.4 mg DAILY PO 05/18/24 10:00 05/23/24 10:24 0.4 MG Albuterol 2.5 mg Q4HPRN PRN NEB 05/17/24 23:15 Cancel Polyethylene Glycol 17 gm DAILY PO 05/18/24 12:15 05/22/24 12:54 17 GM Metoclopramide HCl 5 mg Q8HR PO 05/18/24 14:00 05/24/24 05:22 5 MG Cyclobenzaprine HCl 5 mg Q8HPRN PRN PO 05/18/24 12:45 05/21/24 05:33 5 MG Meclizine HCl 25 mg Q6HPRN PRN PO 05/19/24 11:45 Morphine Sulfate 1 mg Q4HP PRN IV 05/19/24 11:45 05/23/24 10:41 1 MG Pantoprazole Sodium 40 mg BID@0600,1700 PO 05/20/24 17:00 05/24/24 05:22 40 MG Lactulose 30 ml TID PO 05/21/24 14:00 05/22/24 05:44 30 ML Amiodarone HCl 200 mg BID PO 05/23/24 10:00 05/23/24 22:53 200 MG Apixaban 5 mg BID PO 05/23/24 10:00 05/23/24 22:53 5 MG Guaifenesin/ Dextromethorphan 10 ml Q4HP PRN PO 05/23/24 13:15 05/23/24 13:47 10 ML Calcium Carbonate 500 mg TIDWM PO 05/23/24 13:15 05/24/24 05:31 500 MG laboratory and microbiology Laboratory Tests 05/23/24 03:00 05/22/24 06:00 Test 05/23/24 03:00 Range/Units Serum Glucose 138 H 74-106 mg/dL Assessment/Plan After EGD, had afib with RVR, started on Amio drip. Later needed cardioversion to NSR. Was managed in ICU and then transferred to tele. In sinus rhythm Patient is a 48-year-old gentleman who presented with few days of abdominal pain/constipation. He had presented to another facility for the same. Recently, he did receive treatment for URI with antibiotics. Presentation has been considered intractable abdominal pain. Primary team/GI is considering to proceed with endoscopy/colonoscopy. Cardiology was involved for cardiac aspects of care and also risk stratification prior to EGD/colonoscopy. He denies any recent chest pain/shortness of breaths. He denies palpitation and loss of consciousness. Patient is known to our practice from outside. He does have baseline history of paroxysmal AFib and is on Eliquis as outpatient. He has had negative nuclear stress test around a year ago. Not in acute distress. No carotid bruit. No JVD. Mucosa is pink and wet. Lungs: Clear to auscultation. Cardiac: Regular, no thrill/gallop, abdomen is soft. There is no gross mass/hepatomegaly. Mild generalized abdominal tenderness is elicited. There is no rebound tenderness. Extremities reveal 1+ edema bilaterally. Dorsalis pedis is 2+ bilateral. Past medical history includes learning disability, hypertension, paroxysmal AFib (on Eliquis as outpatient), asthma, osteoarthritis, anxiety/depression, BPH, hyperlipidemia (on Repatha as outpatient), migraines, history of vitamin-D deficiency and magnesium deficiency, CKD, GERD, short episodes of SVT and mild mitral valve prolapse. He is allergic to statins and is on Repatha as outpatient. Nuclear stress test of February 2023 did not reveal ischemia and reported ejection fraction of 77%. Echocardiogram of December 24, 2022 (performed in the office) revealed ejection fraction of 65-70%, mild MR/TR/PI and mild mitral valve prolapse Echocardiogram of October 13, 2023 had revealed ejection fraction of 64%, trace MR/TR/PI Echocardiogram of March 25, 2024 revealed ejection fraction of 65-70 percent, there was no wall motion abnormality. There was trace MR/TR/PI. Creatinine: 1.15 - 1.16 - 1.23 - 1.07 - 1.14 Potassium: 3.5 - 4.2 - 3.6 - 3.6 - 3.7 Troponin (high sensitive): 5 - 4 - 7 BNP: 10.09 Abdominal x-ray reported: FINDINGS: No focal evidence of airspace disease. The cardiomediastinal silhouette is within normal limits. No acute osseous lesions. Nonobstructive bowel gas pattern noted. There is no evidence for pneumoperitoneum. No abnormal calcifications noted. IMPRESSION: Non-specific gas-filled loops of bowel. Large stool burden KUB reported: History: r.o ilues Comparison: XY KUB ABDOMEN SINGLE VIEW on DOS: 11/12/23, XY KUB ABDOMEN SINGLE VIEW on DOS: 10/15/23 TECHNIQUE: Frontal views of the abdomen was obtained. FINDINGS: Bowel gas pattern is unremarkable. The lung bases are unremarkable. No acute osseous abnormality identified. IMPRESSION: Nonobstructive bowel gas pattern. Large stool burden Repeat KUB revealed: Nonspecific bowel-gas pattern. Generalized paucity of visualized small bowel loops. There is no definite evidence for pneumoperitoneum. No abnormal calcifications noted. Impression: Nonspecific bowel-gas pattern. Chest xry revealed: IMPRESSION: No acute cardiopulmonary disease. Telemetry has revealed sinus rhythm. Had episode of a-fib with RVR after EGD. He was cardioverted to NSR later Patient is a 48-year-old gentleman who presented with intractable abdominal pain/constipation. Does have recent treatment for URI with antibiotics. Baseline history includes atrial fibrillation/hyperlipidemia/hypertension/anxiety and depression. Cardiac-kovacs is non symptomatic. Acute coronary syndrome is not considered. To go for possible EGD/colonoscopy. Cardiac-kovacs, the patient is considered low risk patient for low risk EGD/colonoscopy. You can hold anticoagulation (patient on Eliquis as outpatient) prior to proceeding with EGD/colonoscopy. After EGD, had afib with RVR, started on Amio drip. Later needed cardioversion to NSR. Being managed in ICU. Intractable abdominal pain Constipation Paroxysmal AFib Hypertension Depression BPH SVT A-fib with RVR, s/p cardioversion Cardiac suggestion for management: Management in ICU Follow-up electrolytes and kidney function tests and correct abnormalities. Keep potassium above 4 and magnesium above 2 Long-term continuation of full anticoagulation (Eliquis) is advised. Stop IV Amiodarone. Continue oral amiodarone Full anticoagulation Cardiac kovacs, is stable and can be followed as outpatient. Evaluation and management of intractable abdominal pain/constipation as per primary team/GI. Further evaluation and management depends on the above and clinical course A total of 55 minutes was spent reviewing the patient record, examining the patient, making a diagnostic and therapeutic plan, discussing this plan with medical personnel, following up on diagnostic studies and following the patient for clinical stability excluding any and all procedures. At least 50% of this time was spent in direct, [id number] contact. Thank you for allowing me to participate in this patient's care. Further recommendations will depend on patient's clinical course. Please do not hesitate to contact me if you have any questions or concerns. This medical document was created using electronic medical record system with [employer] computerized dictation system. Although this document has been carefully reviewed, there may still be some phonetic and typographical errors. These areas are purely typographical due to the imperfection of the software programs, and do not reflect any compromise in the patient's medical care. Plan discussed with: Patient, Other (nurse) APOORVA JON MD May 24, 2024 06:12
[2024-05-24] MEDS ORDERED: AMIO200T13 PO (10:30)
[2024-05-24] MEDS ORDERED: AZIT-43 PO (10:31)
--- NOTE | 2024-05-24 10:32 | DVHDS2 ---
Discharge Summary Date of Admission May 17, 2024 at 22:33 Date of Discharge: May 24, 2024 Labs/Diagnostic Data: Laboratory Results Test 05/24/24 06:09 05/23/24 03:00 05/22/24 20:41 05/22/24 19:12 Sodium Level 140 mmol/L (136-145) Potassium Level 3.7 mmol/L (3.5-5.1) Chloride Level 109 mmol/L (98-107) Carbon Dioxide Level 24 mmol/L (20-31) Anion Gap 7 (5-15) Blood Urea Nitrogen 13 mg/dL (9-23) Creatinine 1.14 mg/dL (0.700-1.30) Glomerular Filtration Rate Calc 79 mL/min (>90) BUN/Creatinine Ratio 11.4 (10.0-20.0) Serum Glucose 138 mg/dL (74-106) Calcium Level 9.6 mg/dL (8.7-10.4) Phosphorus Level 3.1 mg/dL (2.4-5.1) Magnesium Level 2.2 mg/dL (1.6-2.6) Troponin I High Sensitivity 7 ng/L (</=54) B-Type Natriuretic Peptide 10.09 pg/mL (0-100) POC Glucose 211 mg/dl (70-106) Test 05/22/24 06:00 05/20/24 13:49 05/17/24 20:40 05/17/24 19:45 White Blood Count 4.5 10^3/uL (4.4-10.8) Red Blood Count 4.68 10^6/uL (4.5-5.90) Hemoglobin 15.4 g/dL (13.5-17.5) Hematocrit 45.4 % (41.0-53.0) Mean Corpuscular Volume 97.0 fL (80.0-100.0) Mean Corpuscular Hemoglobin 32.9 pg (28.0-32.0) Mean Corpuscular Hemoglobin Concent 33.9 g/dL (32.0-36.0) Red Cell Distribution Width 14.5 % (11.8-14.3) Platelet Count 251 10^3/uL (140-450) Mean Platelet Volume 7.5 fL (6.9-10.8) Neutrophils (%) (Auto) 70.3 % (37.0-80.0) Lymphocytes (%) (Auto) 17.4 % (10.0-50.0) Monocytes (%) (Auto) 8.9 % (0.0-12.0) Eosinophils (%) (Auto) 3.0 % (0.0-7.0) Basophils (%) (Auto) 0.4 % (0.0-2.0) Neutrophils # (Auto) 3.2 10 ^3/uL (1.6-8.6) Lymphocytes # (Auto) 0.8 10 ^3/uL (0.4-5.4) Monocytes # (Auto) 0.4 10 ^3/uL (0-1.3) Eosinophils # (Auto) 0.1 10 ^3/uL (0-0.8) Basophils # (Auto) 0 10 ^3/uL (0-0.2) Nucleated Red Blood Cells 0.1 % Prothrombin Time 11.1 sec (9.3-11.8) Prothrombin Time INR 1.05 (0.9-1.15) Activated Partial Thromboplast Time 26.5 SEC (24.5-34.5) Total Bilirubin 0.5 mg/dL (0.2-1.0) Aspartate Amino Transferase (AST) 19 U/L (13-40) Alanine Aminotransferase (ALT) 26 U/L (7-40) Alkaline Phosphatase 68 U/L (46-116) Total Protein 6.5 g/dL (5.7-8.2) Albumin 4.5 g/dL (3.2-4.8) Lactic Acid Level 1.0 mmol/L (0.4-2.0) Lipase 46 U/L (12-53) Urine Color Yellow (Yellow) Urine Clarity Clear (Clear) Urine pH 6.0 (5.0-9.0) Urine Specific Comins > 1.050 (1.001-1.035) Urine Protein 1+ (Negative) Urine Ketones 1+ (Negative) Urine Blood Negative /uL (Negative) Urine Nitrite Negative (Negative) Urine Bilirubin Negative (Negative) Urine Urobilinogen Normal mg/dL (Negative) Urine Leukocyte Esterase Negative /uL (Negative) Urine RBC 1 /hpf (0 - 3) Urine Microscopic WBC < 1 /HPF (0-3) Urine Squamous Epithelial Cells None seen /hpf (<5) Urine Bacteria None seen /hpf (None Seen) Urine Glucose Normal mg/dL (Normal) Other Laboratory Tests 05/23/24 03:00 05/22/24 06:00 Brief Hx & Hospital Course: 48 yo male patient with hx of A-fib, HTN, HLD, arthritis, anemia, and anxiety c/o epigastric abdominal pain that radiates to his suprapubic region x 2 days. Patient sts to have constipation with his last BM being yesterday. PAtient reports that he was recently at [place] where he had a CT done and was told everything was normal. While in the emergency department the patient was evaluated by the provider, As per provider: Labs, vital signs, and imagining monitored. Patient was admitted on May 17, 2024 for abdominal pain. Patient was recently admitted at [facility] as well for the same issues. Patient was seen by GI. Patient is status post EGD. Patient has mild gastritis. No acute abdominal issues were found. Patient did go into A-fib with RVR after procedure. Patient was given several doses of IV amiodarone bolus and patient was cardioverted. Patient amiodarone oral dose was increased for home. Patient was cleared for discharge by cardiology. Heart rate remained stable. Patient will follow-up with PCP in 1 week. Patient is to follow-up as outpatient with GI for colonoscopy. Patient was instructed to get a referral for pain management for chronic pain issues and neuropathy. The patient received proper medical treatment and medications. Vital signs, Imaging and Laboratory Work was monitored. All consults recommendations were followed as provided. There were no complaints or new complaints upon discharge, all questions and concerns were answered. Patient was advised to return to the ER or call 911 if any headaches, dizziness, shortness of breath, chest pain, bleeding, fevers, or worsening of medical condition. Patient/Family was counseled about treatment plan, medications, possible side effects, patientverbalized understanding. All questions were answered to the best of my ability. The patient symptoms improved and they are okay to be DC. Condition at Discharge: Good Final Diagnosis/Problems List gerd afib rvr Secondary Diagnosis: Abdominal pain r/t constipation GERD HLD Anxiety Discharge Disposition: Home Discharge Instruct/Medications Diet: Cardiac 2g Na,low cholest Activity: No Restrictions, As Tolerated Follow Up/Referral: pcp 1 week Discharge Statement: "Patient was advised to return to the ER or call 911 if any headaches, dizziness, shortness of breath, chest pain, abdominal pain, bleeding, fevers, or worsening of medical condition. Patient was counseled about treatment plan, medications, possible side effects, patientverbalized understanding. All questions were answered to the best of my ability. This discharge took greater then 30 minutes in planning, reviewing documentation, counseling the patient, and discussing with other team members." ASSESSMENT ASSESSMENT Assessment gerd afib rvr MCKENNA ROTH NP May 24, 2024 10:32
[2024-05-24] MEDS ORDERED: GABA-1250 PO (10:37)
--- NOTE | 2024-05-24 13:56 | DVHPN2 ---
Progress Note Date Seen: May 24, 2024 Resident Creating Document: DOMINGA ESTRADA RESIDENT Medical Necessity Reason Pt with a Central, PICC or Fol: No Subjective Review of Systems Patient was seen and examined on the bedside. He is alert ,oriented x3. No overnight event. The patient is still complaining of abdominal pain. Currently in sinus rhythm with controlled heart rate. Objective vital signs Vital Sign Date Time Temp Pulse Resp B/P (MAP) Pulse Ox O2 Delivery O2 Flow Rate FiO2 05/24/24 11:15 98.2 66 15 94 05/24/24 10:51 143/85 05/24/24 10:00 Room Air 0.0 05/24/24 10:00 21 Total Intake and Output 05/23/24 05/23/24 05/24/24 15:00 23:00 07:00 Intake Total 1076.62 ml 1579.96 ml 100 ml Output Total 1900 ml 1200 ml Balance 1076.62 ml -320.04 ml -1100 ml medications Current Medications Medications Dose Ordered Sig/Yesenia Route Start Time Stop Time Status Last Admin Dose Admin Temazepam 15 mg QHSP PRN PO 05/17/24 22:45 05/23/24 23:38 15 MG Ondansetron HCl 4 mg Q4HP PRN IV 05/17/24 22:45 Docusate Sodium 100 mg BIDPRN PRN PO 05/17/24 22:45 Nitroglycerin 0.4 mg Q5MINP PRN SL 05/17/24 22:45 05/22/24 18:57 0.4 MG Hydromorphone HCl 0.25 mg Q4HPRN PRN IV 05/17/24 22:45 05/19/24 05:43 0.25 MG Sucralfate 1 gm QID PO 05/18/24 06:00 05/24/24 12:00 1 GM Labetalol HCl 200 mg BID PO 05/18/24 10:00 05/24/24 10:51 200 MG Tamsulosin HCl 0.4 mg DAILY PO 05/18/24 10:00 05/24/24 10:49 0.4 MG Albuterol 2.5 mg Q4HPRN PRN NEB 05/17/24 23:15 Cancel Polyethylene Glycol 17 gm DAILY PO 05/18/24 12:15 05/22/24 12:54 17 GM Metoclopramide HCl 5 mg Q8HR PO 05/18/24 14:00 05/24/24 05:22 5 MG Cyclobenzaprine HCl 5 mg Q8HPRN PRN PO 05/18/24 12:45 05/21/24 05:33 5 MG Meclizine HCl 25 mg Q6HPRN PRN PO 05/19/24 11:45 Morphine Sulfate 1 mg Q4HP PRN IV 05/19/24 11:45 05/23/24 10:41 1 MG Pantoprazole Sodium 40 mg BID@0600,1700 PO 05/20/24 17:00 05/24/24 05:22 40 MG Lactulose 30 ml TID PO 05/21/24 14:00 05/22/24 05:44 30 ML Amiodarone HCl 200 mg BID PO 05/23/24 10:00 05/24/24 10:50 200 MG Apixaban 5 mg BID PO 05/23/24 10:00 05/24/24 10:50 5 MG Guaifenesin/ Dextromethorphan 10 ml Q4HP PRN PO 05/23/24 13:15 05/23/24 13:47 10 ML Calcium Carbonate 500 mg TIDWM PO 05/23/24 13:15 05/24/24 05:31 500 MG Examination Physical examination: General Appearance: Alert, Oriented X3, Cooperative, No acute distress HEENT: Atraumatic, PERRLA, EOMI, Mucous membrane moist/pink Respiratory: Clear to auscultation, Normal air movement Cardiovascular: Regular rate, Normal S1, Normal S2, No murmurs, no chest wall tenderness Abdominal: Normal bowel sounds, Soft, No tenderness, No hepatospenomegaly, No masses Extremities: No clubbing, No cyanosis, No edema, Normal pulses, No tenderness/swelling Skin: No rashes, No breakdown, No significant lesion Neuro: Normal gait, Normal speech, Strength at 5/5 X4 ext, Normal tone, Sensation intact, Cranial nerves 3-12 NL, Reflexes 2+ Psych/Mental Status: Mental status NL, Mood NL laboratory and microbiology Laboratory Tests 05/23/24 03:00 05/22/24 06:00 Test 05/23/24 03:00 Range/Units Serum Glucose 138 H 74-106 mg/dL Microbiology Date/Time Source Procedure Growth Status 05/22/24 20:18 Nose MRSA Screen - Final Complete Labs and/or images reviewed: Labs reviewed by me, Image(s) reviewed by me Problem List/Assessment/Plan Problem List/Assessment/Plan Assesment: # Chest pain ruled out ACS by cardiology. # AFib with RVR and secondary hypercoagulable state # Abdominal pain likely due to constipation. # Chronic GERD # History of hemorrhoids Patient underwent EGD on 05/22/24 revealed 1. 0.5-1 cm sliding-type hiatal hernia with no significant erosive esophagitis and GE junction biopsies were obtained and Minimal antral gastritis otherwise normal examination up to the 2nd and 3rd part of the duodenum. Plan: - Full liquid diet and advance as tolerated - continue Protonix 40 mg p.o. b.i.d. and Carafate 1 g p.o. q.i.d. - Continue laxative lactulose 30 mL p.o. b.i.d., Colace 100 mg p.o. b.i.d. - Continue eloquis - Recommended outpatient elective colonoscopy. - patient is stable for discharge from GI standpoint Plan discussed with Dr. Troy Plan discussed with: Patient, Other DOMINGA ESTRADA RESIDENT May 24, 2024 13:56
--- NOTE | 2024-05-24 21:49 | DVHPN2 ---
Progress Note - Dictate Date Seen: May 24, 2024 Medical Necessity Reason Pt with a Central, PICC or Fol: No Subjective Patient seen and examined at bedside. Breathing comfortably on room air Overnight events reviewed. vital signs Vital Sign Date Time Temp Pulse Resp B/P (MAP) Pulse Ox O2 Delivery O2 Flow Rate FiO2 05/24/24 13:00 98.5 72 17 148/85 (106) 99 98.5 05/24/24 10:00 Room Air 0.0 05/24/24 10:00 21 Total Intake and Output 05/23/24 05/23/24 05/24/24 15:00 23:00 07:00 Intake Total 1076.62 ml 1579.96 ml 100 ml Output Total 1900 ml 1200 ml Balance 1076.62 ml -320.04 ml -1100 ml medications Current Medications Medications Dose Ordered Sig/Yesenia Route Start Time Stop Time Status Last Admin Dose Admin Albuterol 2.5 mg Q4HPRN PRN NEB 05/17/24 23:15 Cancel objective Gen.: Patient lying in bed in no apparent distress. On room air. Head: Normocephalic, atraumatic. Eyes: EOMI/PERRLA. Ears: Normal hearing. Normal anatomy. Neck/trachea: Trachea midline, supple. Nose: Normal external anatomy. Mouth: Moist mucous membranes. Chest: Decreased air entry bilaterally. No wheezing or rhonchi. Cardiovascular: Positive S1, positive S2. Regular rate and rhythm. Abdomen: Positive bowel sounds in all 4 quadrants. Soft, non-tender, non- distended. : Deferred. Rectal: Deferred. Skin: Warm, dry. Intact. Extremities: 2+ radial pulses bilaterally. No lower extremity edema. Neuro: Awake, alert, oriented x3. No gross motor or sensory deficits. Cranial nerves II through XII intact. Gait not assessed. laboratory and microbiology Laboratory Tests 05/23/24 03:00 05/22/24 06:00 Test 05/23/24 03:00 Range/Units Serum Glucose 138 H 74-106 mg/dL Assessment/Plan Impression: Dyspnea Chest pain Abdominal pain GERD Hyperlipidemia Anxiety Events: On room air Supplemental oxygen PRN Improved O2 requirements Continues to cough - antitussive as needed. Continue PO amiodarone Eliquis BID Cardiology recs appreciated. Continue Flexeril GI prophylaxis w/ Protonix GI recs appreciated. Patient is stable for discharge from the pulmonary standpoint. Labs and imaging reviewed. Rest of plan as noted below. Plan: Supplemental oxygen PRN Titrate to keep O2 sats above 92%. STAT ECG obtained on 05/23 showed peaked T waves in V1 to V4 s/p code assist due to AFib with RVR -currently in sinus rhythm with controlled heart rate Cardiology recommendations appreciated. Continue PO amiodarone Patient s/p EGD. GI recommendations appreciated Monitor renal function. Monitor electrolytes. Supplement as necessary. Monitor ins and outs. GI/DVT prophylaxis. Prognosis: Guarded given patient's multiple co-morbidities. Rest of plan per hospitalist and other consultants. Thank you, JOSE Yuan, for allowing me to participate in this patient's care. Further recommendations will depend on the patient's clinical course. Please do not hesitate to contact me if you have any questions or concerns. This medical document was created using an electronic medical record system with [employer] computerized dictation system. Although these documentations are being carefully reviewed, there may still be some phonetic and typographical changes. The errors are purely typographical, due to imperfection on the software program, and do not reflect any compromise in the patient's medical care. Plan discussed with: Patient, Other (AILYN Haines) ALTON LACKEY MD May 24, 2024 21:49
[2024-05-25 09:08] LABS: Hepatitis B Surface Antigen Negative (Negative)
[2024-05-25 09:33] LABS: Hepatitis C Antibody Negative (Negative)
== END 2024-05-24 17:00 | disposition home health service (06) | DRG 392 ==
LOC: ER 19:12 → OVERFLOW 22:33 → TELE-CENTR 05-18 21:58 → ICU WEST 05-22 19:47 → TELE-CENTR 05-23 21:27
PROVIDERS: ADMIT Nurse Practitioner; ATTEND Nurse Practitioner
PROC: 0DB68ZX Excision of Stomach, Via Natural or Artificial Opening Endoscopic, Diagnostic (ICD-10-PCS; 2024-05-22)
PROC: 0DB48ZX Excision of Esophagogastric Junction, Via Natural or Artificial Opening Endoscopic, Diagnostic (ICD-10-PCS; 2024-05-22)
PROC: 0DB98ZX Excision of Duodenum, Via Natural or Artificial Opening Endoscopic, Diagnostic (ICD-10-PCS; principal; 2024-05-22 15:21)
PROC: 5A2204Z Restoration of Cardiac Rhythm, Single (ICD-10-PCS; 2024-05-23)
DX: K29.70 Gastritis, unspecified, without bleeding (principal); I47.10 Supraventricular tachycardia, unspecified; K59.00 Constipation, unspecified; I48.0 Paroxysmal atrial fibrillation; I12.9 Hypertensive chronic kidney disease with stage 1 through stage 4 chronic kidney disease, or unspecified chronic kidney disease; E11.22 Type 2 diabetes mellitus with diabetic chronic kidney disease; E78.5 Hyperlipidemia, unspecified; F41.9 Anxiety disorder, unspecified; I34.1 Nonrheumatic mitral (valve) prolapse; J06.9 Acute upper respiratory infection, unspecified; J45.909 Unspecified asthma, uncomplicated; K21.9 Gastro-esophageal reflux disease without esophagitis; G89.29 Other chronic pain; E11.40 Type 2 diabetes mellitus with diabetic neuropathy, unspecified; D64.9 Anemia, unspecified; G43.909 Migraine, unspecified, not intractable, without status migrainosus; N18.9 Chronic kidney disease, unspecified; F32.A Depression, unspecified; K44.9 Diaphragmatic hernia without obstruction or gangrene; N40.0 Benign prostatic hyperplasia without lower urinary tract symptoms; Z79.01 Long term (current) use of anticoagulants; Z79.899 Other long term (current) drug therapy; Z83.3 Family history of diabetes mellitus; Z88.6 Allergy status to analgesic agent; Z88.0 Allergy status to penicillin; Z88.5 Allergy status to narcotic agent; Z88.1 Allergy status to other antibiotic agents; Z88.8 Allergy status to other drugs, medicaments and biological substances; Z87.11 Personal history of peptic ulcer disease
CPT/HCPCS: 36415; 71045; 74018; 74022; 80048; 80053; 81001; 82962; 83605; 83690; 83735; 83880; 84100; 84484; 85025; 85610; 85730; 86803; 86850; 86900; 86901; 87081; 87340; 92960; 93005; 96374; G0378; J2003; J2250; J2405; J2470; J2704

== ENCOUNTER 2024-06-14 15:37 | Emergency (ER) | payer OTHER ==
[~2024-06-14] VITALS: Ht 175.3 cm; Wt 88.3 kg
[~2024-06-14 15:37] MED LIST changes: +AMLO1TAB22 PO; +ATOG60TA PO; +AZIT-43 PO; +CLOT1CRE51 TOP; -DOXY-286 PO; +GABA-1250 PO; +KETO2CRE4 TOP; -MELO15TA29 PO; -METH4PAK PO; -PRAV20TA3 PO
--- NOTE | 2024-06-14 16:17 | ED.PDOC ---
History of Present Illness HPI Comments 48-year-old male presents with a chief complaint of cough and muscle pain x 4 weeks. Patient states that he has had a persistent cough for the past 4 weeks. Patient was recently seen here at this facility and was prescribed cough medication which he states has not helped him. Patient also states that he is h aving LUQ ribcage pain from the coughing. Patient has no audible wheezing at this time, speaking in full, complete sentences, and is sating at 97% on room air. Chief Complaint: Flu like Time Seen by MD: 15:56 Primary Care Provider: JORDYN Reviewed Notes: Medications, Allergies Allergies: Coded Allergies: Acetaminophen (Verified Allergy, Unknown, 03/02/23) Amoxicillin (Verified Allergy, Unknown, 03/02/23) Codeine (Verified Allergy, Unknown, 03/02/23) Hydrocodone (Verified Allergy, Unknown, 03/24/24) Ibuprofen (Verified Allergy, Unknown, 03/02/23) Penicillins (Verified Allergy, Unknown, 03/02/23) Statins (Verified Allergy, Unknown, 03/02/23) Tramadol (Verified Allergy, Unknown, 03/02/23) Uncoded Allergies: WALNUTS (Allergy, Unknown, 03/02/23) Home Meds Active Scripts Gabapentin (Gabapentin) 300 Mg Cap, 1 CAP PO TID, #90 CAP 5 Refills Prov:MCKENNA ROTH NP 05/24/24 Azithromycin (Azithromycin) 250 Mg Tab, 250 MG PO DAILY MDD 500 for 5 Days, #6 TAB 0 Refills 2 TABLETS ORALLY ON DAY ONE, THEN 1 TABLET ORALLY DAILY FOR 4 DAYS Prov:MCKENNA ROTH NP 05/24/24 Amiodarone HCl (Amiodarone HCl) 200 Mg Tab, 200 MG PO BID for 30 Days, #60 TAB Prov:MCKENNA ROTH NP 05/24/24 Cyclobenzaprine Hcl (Cyclobenzaprine Hcl) 10 Mg Tab, 10 MG PO TID for 10 Days, #30 TAB Prov:ZEKE FISHER MD 04/30/24 Metoclopramide Hcl (Reglan) 10 Mg Tab, 10 MG PO BID for 14 Days, #28 TAB Prov:ZEKE FISHER MD 04/30/24 Promethazine Hcl (Promethazine Hcl) 25 Mg Tab, 1 TAB PO Q6HPRN for 14 Days, #56 TAB Prov:EMELYANTONY LEEBLAIRE RESTAURANT HOSTESS 03/26/24 Sucralfate (Sucralfate) 1 Gm Tab, 1 TAB PO QID for 30 Days, #120 TAB Prov:MCKENNA ROTH Tena OVERNIGHT CASHIER 11/15/23 Pantoprazole Sodium Sesquihydr (Pantoprazole Sodium) 40 Mg Tab, 1 TAB PO BID for 30 Days, #60 TAB Prov:MCKENNA ROTH Tena OVERNIGHT CASHIER 11/15/23 Reported Medications Ketoconazole (Ketoconazole) 2 % Cre, 1 APPLIC TOP BID, #60 GRAMS 1 Refill 05/18/24 Clotrimazole (Clotrimazole) 1 % Cre, 1 APPLIC TOP Q12HR for 30 Days, APPLIC 05/18/24 Amlodipine Besylate (Amlodipine Besylate) 5 Mg Tab, 10 MG PO DAILY for 30 Days, MG 05/18/24 Atogepant (Qulipta) 60 Mg Tab, 60 MG PO, TAB 05/18/24 Labetalol HCl (Labetalol Hydrochloride) 200 Mg Tab, 1 TAB PO BID 03/25/24 Tamsulosin HCl (Tamsulosin Hydrochloride) 0.4 Mg Cap, 0.4 MG PO DAILY, CAP 03/25/24 Beclomethasone Dipropionate (Qvar Redihaler) 80 Mcg/Act Aer, 2 PUFF IN BID, AER 03/25/24 Docusate Sodium (Colace) 100 Mg Cap, 100 MG PO BID PRN for FOR CONSTIPATION, CAP 03/25/24 Albuterol Sulfate (Albuterol Sulfate Hfa) 108 Mcg/Act Aer, 1 PUFF INH Q4HPRN PRN for SHORTNESS OF BREATH 03/25/24 Hydroxyzine Hcl (Hydroxyzine Hcl) 25 Mg Tab, 20 MG PO DAILY PRN for FOR ITCHING, TAB 03/25/24 Magnesium Oxide (Magnesium Oxide) 400 Mg Tab, 1 TAB PO DAILY 11/14/23 Triamcinolone Acetonide (Triamcinolone Acetonide) 0.1 % Pst, 1 APPLIC TOP BID, APPLIC both arms 10/12/23 Albuterol Sulfate (VENTOLIN MDI) 90 Mcg Ih, 90 MCG IN Q4HP, INH 10/12/23 Apixaban Base (ELIQUIS) 5 Mg Tab, 5 MG PO BID, TAB 10/12/23 Evolocumab (Repatha) 140 Mg/Ml Inj, 1 ML SC, INJ take once every 24 days 10/12/23 Hctz (Hydrochlorothiazide) 25 Mg Tab, 25 MG PO DAILY, TAB 10/12/23 Dicyclomine Hcl (Dicyclomine Hcl) 20 Mg Tab, 10 MG PO TID, MG 10/12/23 Cholecalciferol (VITAMIN D3) 2,000 Unit Tab, 1 TAB PO DAILY, #30 TAB 5 Refills 10/12/23 Diphenhydramine Hcl (Banophen) 25 Mg Cap, 25 MG PO BID, CAP 10/12/23 Information Source: Patient Mode of Arrival: Ambulatory Severity: Moderate Timing: Weeks Duration: Since onset Prehospital treatment: None Past Medical History PAST MEDICAL HISTORY: AFIB, Anxiety, Arthritis, Asthma, High Lipids, HTN Surgical History: Denies all surgeries Family History Family History: Reviewed,noncontributory to illness, Unknown Social History Smoker: Non-Smoker Alcohol: Denies ETOH Use Drugs: Denies Drug Use Lives In: Home Constitutional: denies: chills, diaphoresis, fatigue, fever, malaise, sweats, weakness, others EENTM: denies: blurred vision, double vision, ear bleeding, ear discharge, ear drainage, ear pain, ear ringing, eye pain, eye redness, hearing loss, mouth pain, mouth swelling, nasal discharge, nose bleeding, nose congestion, nose pain, photophobia, tearing, throat pain, throat swelling, voice changes, others Respiratory: reports: cough; denies: hemoptysis, orthopnea, SOB at rest, shortness of breath, SOB with excertion, stridor, wheezing, others Cardiovascular: denies: chest pain, dizzy spells, diaphoresis, Dyspnea on exertion, edema, irregular heart beat, left arm pain, lightheadedness, palpitations, PND, syncope, others Gastrointestinal: denies: abdomen distended, abdominal pain, blood streaked bowels, constipated, diarrhea, dysphagia, difficulty swallowing, hematemesis, melena, nausea, poor appetite, poor fluid intake, rectal bleeding, rectal pain, vomiting, others Genitourinary: denies: burning, dysuria, flank pain, frequency, hematuria, incontinence, penile discharge, penile sore, pain, testicle pain, testicle swelling, urgency, others Neurological: denies: dizziness, fainting, headache, left sided numbness, left sided weakness, numbness, paresthesia, pre-existing deficit, right sided numbness, right sided weakness, seizure, speech problems, tingling, tremors, weakness, others Musculoskeletal: reports: muscle pain; denies: back pain, gout, joint pain, joint swelling, muscle stiffness, neck pain, others Integumetry: denies: bruises, change in color, change in hair/nails, dryness, laceration, lesions, lumps, rash, wounds, others Allergic/Immunocompromised: denies: Difficulty Healing, Frequent Infections, Hives, Itching, others Hematologic/Lymphatic: denies: anemia, blood clots, easy bleeding, easy bruising, swollen glands, others Endocrine: denies: excessive hunger, excessive sweating, excessive thirst, excessive urination, flushing, intolerance to cold, intolerance to heat, unexplained weight gain, unexplained weight loss, others Psychiatric: denies: anxiety, bipolar disorder, depression, hopeless, panic disorder, schizophrenia, sleepless, suicidal, others All Other Systems: Reviewed and Negative Physical Exam General Appearance: No Apparent Distress, Normal HEENT: Normal ENT Inspection, Pharynx Normal, TMs Normal Neck: Full Range of Motion, Non-Tender, Normal, Normal Inspection Respiratory: Chest Non-Tender, Lungs Clear, No Accessory Muscle Use, No Respiratory Distress, Normal Breath Sounds Cardiovascular: No Edema, No JVD, No Murmur, No Gallop, Normal Peripheral Pulses, Regular Rate/Rhythm Breast Exam: Deferred Gastrointestinal: No Organomegaly, Non Tender, No Pulsatile Mass, Normal Bowel Sounds, Soft Genitalia: Deferred Pelvic: Deferred Rectal: Deferred Extremities: No calf tenderness, Normal capillary refill, Normal inspection, Normal range of motion, Non-tender, No pedal edema Musculoskeletal : Apperance: Normal Neurologic: Alert, integrated circuit fabricator II-XII nml as Tested, No Motor Deficits, Normal Affect, Normal Mood, No Sensory Deficits Cerebellar Function: Normal Reflexes: Normal Skin: Dry, Normal Color, Warm Lymphatic: No Adenopathy Was a procedure done? Was a procedure done?: No Differential Dx Considerations may include: URI, INFLUENZA, COVID, STREP THROAT, PHARYNGITIS, PNEUMONIA X-Ray, Labs, Meds, VS Vital Signs Date Time Temp Pulse Resp B/P (MAP) Pulse Ox O2 Delivery O2 Flow Rate FiO2 06/14/24 15:55 20 97 Room Air 0 06/14/24 15:55 98.6 89 20 144/90 (108) 97 X-Ray, Labs, Meds, VS Comment IMAGING: X-RAYS AND CT SCANS WERE REVIEWED AND INTERPRETED BY THIS PROVIDER, IMAGING SHOWS NO FRACTURES AND NO PATHOLOGICAL DISEASE. PENDING RADIOLOGY REVIEW. LABORATORY: LABS REVIEWED AND INTERPRETED BY THIS PROVIDER. NO SIGNIFICANT ABNORMALITIES NOTED. PATIENT HAS PRIOR MEDICAL VISITS REVIEWED. MED RECONCILIATION PERFORMED VITAL SIGNS REVIEWED Time of 1ST Reevaluation: 16:26 Reevaluation 1ST: Unchanged Patient Education/Counseling: Diagnosis, Treatment, Prognosis, Need For Follow Up (PATIENT ADVISED TO FOLLOW-UP IN THE EMERGENCY ROOM IN THE NEXT 24 TO 48 HOURS IF SYMPTOMS DO NOT IMPROVE. ADVISED FOLLOW-UP WITH PCP IN THE NEXT 3 TO 5 DAYS. PATIENT VERBALIZED UNDERSTANDING. ) Family Education/Counseling: Diagnosis, Treatment, Prognosis Departure 1 Departure Time of Disposition: 16:43 Impression: Primary Impression: Acute asthmatic bronchitis Disposition: 01 HOME / SELF CARE / HOMELESS Condition: Fair e-Prescriptions Albuterol Sulfate (Albuterol Sulfate Hfa) 108 Mcg/Act Aer 108 MCG IN TID PRN, #1 AER Prov: BENIGNO SANDS 06/14/24 Prednisone (Prednisone) 20 Mg Tab 20 MG PO DAILY for 5 Days, #5 MG Prov: BENIGNO SANDS 06/14/24 Benzonatate (Benzonatate) 100 Mg Cap 1-2 CAP PO Q4HR PRN, #60 CAP Prov: BENIGNO SANDS 06/14/24 Discharged With: Self Critical Care Note Critical Care Time?: No Stability Stability form required: No Heart Score Heart Score: Heart Score Response (Comments) Value History N/A 0 EKG N/A 0 Age N/A 0 Risk Factors N/A 0 Troponin N/A 0 Total 0 I personally scribed for BENIGNO SANDS ([email or web address]) on 06/14/24 at 16:17. Electronically submitted by Kerwin Greene ([email or web address]). BENIGNO SANDS Jun 14, 2024 16:17
--- NOTE | 2024-06-14 16:35 | DVH ---
EXAM: XY CHEST XRAY 1 VIEW HISTORY: SOB COMPARISON: XY CHEST XRAY 1 VIEW on DOS: 05/23/24, XY CHEST PORTABLE on DOS: 03/24/24, XY CHEST PORTAB LE on DOS: 02/11/24, XY CHEST PORTABLE on DOS: 11/12/23, XY CHEST PORTABLE on DOS: 10/12/23 TECHNIQUE: Portable AP view of the chest was performed. FINDINGS: No pneumothorax, consolidative infiltrates, or pulmonary edema. The heart is not enlarged. There is slight midthoracic dextroscoliosis. IMPRESSION: No acute intrathoracic process.
[2024-06-14] MEDS ORDERED: ALBU108A5 IN (16:45)
[2024-06-14] MEDS ORDERED: PRED20TA2 PO (16:45)
[2024-06-14] MEDS ORDERED: BENZ100C97 PO (16:45)
[2024-06-14] MEDS: IPRATROPIUM BROM 0.5 MG/2.5ML INH SOL NEB ONE (16:57)
[2024-06-14] MEDS: ALBUTEROL SULF 2.5 MG/0.5ML(0.5%) NEB SOLN NEB ONE (16:57)
[2024-06-14 17:15] VITALS: BP 139/86; PULSE 89; RESP 20; TEMP 99.1; O2SAT 94
== END 2024-06-14 17:21 | disposition home or self-care (01) ==
LOC: ER 15:37
DX: J45.909 Unspecified asthma, uncomplicated (principal); I10 Essential (primary) hypertension; E78.5 Hyperlipidemia, unspecified; F41.9 Anxiety disorder, unspecified; I48.91 Unspecified atrial fibrillation; M19.90 Unspecified osteoarthritis, unspecified site; Z79.899 Other long term (current) drug therapy; Z88.0 Allergy status to penicillin; Z88.5 Allergy status to narcotic agent; Z88.6 Allergy status to analgesic agent; Z88.8 Allergy status to other drugs, medicaments and biological substances
CPT/HCPCS: 71045; 94640

== ENCOUNTER 2024-07-10 18:46 | Inpatient (IN) | payer OTHER ==
[~2024-07-10] VITALS: Ht 175.3 cm; Wt 89.5 kg
[~2024-07-10 18:46] MED LIST changes: +ALBU108A5 IN; +BENZ100C97 PO; +PRED20TA2 PO
[2024-07-10 19:04] LABS: Urine Bacteria None Seen /hpf (None Seen)
[2024-07-10 19:23] LABS: Urine Blood Negative /uL (Negative); Urine Clarity Clear (Clear); Urine Color Light-Yellow (Yellow); Urine Protein, UAD Negative (Negative); Urine Specific Gravity 1.017 (1.001-1.035); Urine Squamous Epithelial Cell None Seen /hpf (<5); Urine Urobilinogen Normal (Negative); Urine WBC 1 /HPF (0-3); Urine pH 5.5 (5.0-9.0)
--- NOTE | 2024-07-10 20:23 | ED.PDOC ---
History of Present Illness HPI Comments 48 y/o M, with a A-fib, HTN, HLD, GERD, arthritis, anemia, and anxiety, presents with c/o diffused abdominal pain and distension, today. Patient is a poor historian and endorses on still having symptoms after, initial, being seen and discharged from [facility]. Patient reports pain radiating to his his sternum. He denies any shortness of breath, nausea, vomiting, or other associated symptoms at this time. Chief Complaint: Abdominal Pain Time Seen by MD: 19:00 Primary Care Provider: JORDYN Reviewed Notes: Nurses Notes, Medications, Allergies Allergies: Coded Allergies: Acetaminophen (Verified Allergy, Unknown, 03/02/23) Amoxicillin (Verified Allergy, Unknown, 03/02/23) Codeine (Verified Allergy, Unknown, 03/02/23) Hydrocodone (Verified Allergy, Unknown, 03/24/24) Ibuprofen (Verified Allergy, Unknown, 03/02/23) Penicillins (Verified Allergy, Unknown, 03/02/23) Statins (Verified Allergy, Unknown, 03/02/23) Tramadol (Verified Allergy, Unknown, 03/02/23) Uncoded Allergies: WALNUTS (Allergy, Unknown, 03/02/23) Home Meds Active Scripts Albuterol Sulfate (Albuterol Sulfate Hfa) 108 Mcg/Act Aer, 108 MCG IN TID PRN, #1 AER Prov:BENIGNO SANDSP 06/14/24 Prednisone (Prednisone) 20 Mg Tab, 20 MG PO DAILY for 5 Days, #5 MG Prov:BENIGNO SANDS AERODYNAMICS ENGINEER 06/14/24 Benzonatate (Benzonatate) 100 Mg Cap, 1-2 CAP PO Q4HR PRN, #60 CAP Prov:BENIGNO SANDSP 06/14/24 Gabapentin (Gabapentin) 300 Mg Cap, 1 CAP PO TID, #90 CAP 5 Refills Prov:MCKENNA ROTH NP 05/24/24 Azithromycin (Azithromycin) 250 Mg Tab, 250 MG PO DAILY MDD 500 for 5 Days, #6 TAB 0 Refills 2 TABLETS ORALLY ON DAY ONE, THEN 1 TABLET ORALLY DAILY FOR 4 DAYS Prov:MCKENNA ROTH NP 05/24/24 Amiodarone HCl (Amiodarone HCl) 200 Mg Tab, 200 MG PO BID for 30 Days, #60 TAB Prov:MCKENNA ROTH NP 05/24/24 Cyclobenzaprine Hcl (Cyclobenzaprine Hcl) 10 Mg Tab, 10 MG PO TID for 10 Days, #30 TAB Prov:ZEKE FISHER MD 04/30/24 Metoclopramide Hcl (Reglan) 10 Mg Tab, 10 MG PO BID for 14 Days, #28 TAB Prov:ZEKE FISHER MD 04/30/24 Promethazine Hcl (Promethazine Hcl) 25 Mg Tab, 1 TAB PO Q6HPRN for 14 Days, #56 TAB Prov:BLAIRE MCLEOD AERODYNAMICS ENGINEER 03/26/24 Sucralfate (Sucralfate) 1 Gm Tab, 1 TAB PO QID for 30 Days, #120 TAB Prov:MCKENNA ROTH DIE INSPECTOR 11/15/23 Pantoprazole Sodium Sesquihydr (Pantoprazole Sodium) 40 Mg Tab, 1 TAB PO BID for 30 Days, #60 TAB Prov:MCKENNA ROTH NP 11/15/23 Reported Medications Ketoconazole (Ketoconazole) 2 % Cre, 1 APPLIC TOP BID, #60 GRAMS 1 Refill 05/18/24 Clotrimazole (Clotrimazole) 1 % Cre, 1 APPLIC TOP Q12HR for 30 Days, APPLIC 05/18/24 Amlodipine Besylate (Amlodipine Besylate) 5 Mg Tab, 10 MG PO DAILY for 30 Days, MG 05/18/24 Atogepant (Qulipta) 60 Mg Tab, 60 MG PO, TAB 05/18/24 Labetalol HCl (Labetalol Hydrochloride) 200 Mg Tab, 1 TAB PO BID 03/25/24 Tamsulosin HCl (Tamsulosin Hydrochloride) 0.4 Mg Cap, 0.4 MG PO DAILY, CAP 03/25/24 Beclomethasone Dipropionate (Qvar Redihaler) 80 Mcg/Act Aer, 2 PUFF IN BID, AER 03/25/24 Docusate Sodium (Colace) 100 Mg Cap, 100 MG PO BID PRN for FOR CONSTIPATION, CAP 03/25/24 Albuterol Sulfate (Albuterol Sulfate Hfa) 108 Mcg/Act Aer, 1 PUFF INH Q4HPRN PRN for SHORTNESS OF BREATH 03/25/24 Hydroxyzine Hcl (Hydroxyzine Hcl) 25 Mg Tab, 20 MG PO DAILY PRN for FOR ITCHING, TAB 03/25/24 Magnesium Oxide (Magnesium Oxide) 400 Mg Tab, 1 TAB PO DAILY 11/14/23 Triamcinolone Acetonide (Triamcinolone Acetonide) 0.1 % Pst, 1 APPLIC TOP BID, APPLIC both arms 10/12/23 Albuterol Sulfate (VENTOLIN MDI) 90 Mcg Ih, 90 MCG IN Q4HP, INH 10/12/23 Apixaban Base (ELIQUIS) 5 Mg Tab, 5 MG PO BID, TAB 10/12/23 Evolocumab (Repatha) 140 Mg/Ml Inj, 1 ML SC, INJ take once every 24 days 10/12/23 Hctz (Hydrochlorothiazide) 25 Mg Tab, 25 MG PO DAILY, TAB 10/12/23 Dicyclomine Hcl (Dicyclomine Hcl) 20 Mg Tab, 10 MG PO TID, MG 10/12/23 Cholecalciferol (VITAMIN D3) 2,000 Unit Tab, 1 TAB PO DAILY, #30 TAB 5 Refills 10/12/23 Diphenhydramine Hcl (Banophen) 25 Mg Cap, 25 MG PO BID, CAP 10/12/23 Information Source: Patient Mode of Arrival: Ambulatory Severity: Moderate Timing: Hours Duration: Since onset Prehospital treatment: None Past Medical History PAST MEDICAL HISTORY: AFIB, Anxiety, Arthritis, Asthma, GERD, High Lipids, HTN Surgical History: Denies all surgeries Family History Family History: Reviewed,noncontributory to illness, Unknown Social History Smoker: Non-Smoker Alcohol: Denies ETOH Use Drugs: Denies Drug Use Lives In: Home Constitutional: denies: chills, diaphoresis, fatigue, fever, malaise, sweats, weakness, others EENTM: denies: blurred vision, double vision, ear bleeding, ear discharge, ear drainage, ear pain, ear ringing, eye pain, eye redness, hearing loss, mouth pain, mouth swelling, nasal discharge, nose bleeding, nose congestion, nose p ain, photophobia, tearing, throat pain, throat swelling, voice changes, others Respiratory: denies: cough, hemoptysis, orthopnea, SOB at rest, shortness of breath, SOB with excertion, stridor, wheezing, others Cardiovascular: denies: chest pain, dizzy spells, diaphoresis, Dyspnea on exertion, edema, irregular heart beat, left arm pain, lightheadedness, palpitations, PND, syncope, others Gastrointestinal: reports: abdomen distended, abdominal pain; denies: blood streaked bowels, constipated, diarrhea, dysphagia, difficulty swallowing, hematemesis, melena, nausea, poor appetite, poor fluid intake, rectal bleeding, rectal pain, vomiting, others Genitourinary: denies: burning, dysuria, flank pain, frequency, hematuria, incontinence, penile discharge, penile sore, pain, testicle pain, testicle swelling, urgency, others Neurological: denies: dizziness, fainting, headache, left sided numbness, left sided weakness, numbness, paresthesia, pre-existing deficit, right sided numbness, right sided weakness, seizure, speech problems, tingling, tremors, weakness, others Musculoskeletal: denies: back pain, gout, joint pain, joint swelling, muscle pain, muscle stiffness, neck pain, others Integumetry: denies: bruises, change in color, change in hair/nails, dryness, laceration, lesions, lumps, rash, wounds, others All Other Systems: Reviewed and Negative (Comprehensive systems review obtained and negative except for what is stated in the HPI.) Physical Exam General Appearance: No Apparent Distress, Normal HEENT: Normal ENT Inspection, Pharynx Normal, TMs Normal Neck: Full Range of Motion, Non-Tender, Normal, Normal Inspection Respiratory: Chest Non-Tender, Lungs Clear, No Accessory Muscle Use, No Respiratory Distress, Normal Breath Sounds Cardiovascular: No Edema, No JVD, No Murmur, No Gallop, Normal Peripheral Pulses, Regular Rate/Rhythm Breast Exam: Deferred Gastrointestinal: Distended, No Organomegaly, No Pulsatile Mass, Normal Bowel Sounds, Soft Genitalia: Deferred Pelvic: Deferred Rectal: Deferred Extremities: No calf tenderness, Normal capillary refill, Normal inspection, Normal range of motion, Non-tender, No pedal edema Musculoskeletal : Apperance: Normal Neurologic: Alert, hearing dog trainer II-XII nml as Tested, No Motor Deficits, Normal Affect, Normal Mood, No Sensory Deficits Cerebellar Function: Normal Reflexes: Normal Skin: Dry, Normal Color, Warm Lymphatic: No Adenopathy Was a procedure done? Was a procedure done?: No Differential Dx Considerations may include: gastritis, gastroenteritis, GERD, viral syndrome, spoiled food, ascites, among others X-Ray, Labs, Meds, VS Vital Signs Date Time Temp Pulse Resp B/P (MAP) Pulse Ox O2 Delivery O2 Flow Rate FiO2 07/10/24 22:32 98.0 103 18 135/95 (108) 97 98.0 07/10/24 18:52 98.5 95 16 140/91 (107) 96 98.5 Lab Test 07/10/24 20:36 07/10/24 19:00 Range/Units Sodium Level 137 136-145 mmol/L Potassium Level 4.2 3.5-5.1 mmol/L Chloride Level 104 98-107 mmol/L Carbon Dioxide Level 24 20-31 mmol/L Anion Gap 9 5-15 Blood Urea Nitrogen 14 9-23 mg/dL Creatinine 1.56 H 0.700-1.30 mg/dL Glomerular Filtration Rate Calc 54 >90 mL/min BUN/Creatinine Ratio 9.0 L 10.0-20.0 Serum Glucose 127 H 74-106 mg/dL Calcium Level 10.4 8.7-10.4 mg/dL Total Bilirubin 0.5 0.2-1.0 mg/dL Aspartate Amino Transferase (AST) 35 13-40 U/L Alanine Aminotransferase (ALT) 49 H 7-40 U/L Alkaline Phosphatase 80 46-116 U/L Total Protein 8.0 5.7-8.2 g/dL Albumin 5.3 H 3.2-4.8 g/dL Lipase 42 12-53 U/L Urine Color Light-yellow Yellow Urine Clarity Clear Clear Urine pH 5.5 5.0-9.0 Urine Specific [place] 1.017 1.001-1.035 Urine Protein Negative Negative Urine Ketones Negative Negative Urine Blood Negative Negative /uL Urine Nitrite Negative Negative Urine Bilirubin Negative Negative Urine Urobilinogen Normal Negative mg/dL Urine Leukocyte Esterase Negative Negative /uL Urine RBC 1 0 - 3 /hpf Urine Microscopic WBC 1 0-3 /HPF Urine Squamous Epithelial Cells None seen <5 /hpf Urine Bacteria None seen None Seen /hpf Urine Glucose Normal Normal mg/dL X-Ray, Labs, Meds, VS Comment Patient will be admitted for abdominal pain, rule out SBO Order for NG tube with intermittent suction place Recommend general surgery consult in the morning if CT scan does not show any resolved Time of 1ST Reevaluation: 19:30 Reevaluation 1ST: Unchanged Patient Education/Counseling: Diagnosis, Treatment Family Education/Counseling: No Family Present Departure 1 Departure Time of Disposition: 00:00 Impression: Primary Impression: Nonspecific abdominal pain Additional Impression: Small bowel obstruction Disposition: ADMITTED INPATIENT Condition: Stable Critical Care Note Critical Care Time?: No Stability Stability form required: No Heart Score Heart Score: Heart Score Response (Comments) Value History N/A 0 EKG N/A 0 Age N/A 0 Risk Factors N/A 0 Troponin N/A 0 Total 0 I personally scribed for BENIGNO SANDS ([email or web address]) on 07/10/24 at 20:23. Electronically submitted by Vlad Kincaid [email or web address]). BENIGNO SANDS Jul 10, 2024 20:23
[2024-07-10 21:13] LABS: Alkaline Phosphatase 80 U/L (46-116); Anion Gap 9 (5-15); Aspartate Aminotransferase 35 U/L (13-40); Bilirubin, Total 0.5 mg/dL (0.2-1.0); Blood Urea Nitrogen 14 mg/dL (9-23); Carbon Dioxide 24 mmol/L (20-31); Chloride 104 mmol/L (98-107); Lipase 42 U/L (12-53); Potassium 4.2 mmol/L (3.5-5.1); Sodium 137 mmol/L (136-145)
[2024-07-10 21:18] LABS: Alanine Aminotransferase 49 U/L (7-40); Albumin 5.3 g/dL (3.2-4.8); Calcium 10.4 mg/dL (8.7-10.4); Glucose 127 mg/dL (74-106)
--- NOTE | 2024-07-10 23:07 | DVH ---
CLINICAL HISTORY: abd pain TECHNIQUE: CT of the abdomen and pelvis was performed without intravenous contrast. This exam was per formed according to our departmental dose optimization program. Up-to-date CT equipment and radiation dose reduction techniques are utilized as appropriate. CTDI: 14.17 DLP: 811.27 WID: COMPARISON: CT CT AB PEL WO CON-NO ORAL OR IV on DOS: 05/16/24 FINDINGS: Lower Thorax: Linear bibasilar scarring or atelectasis. Normal-sized heart. Liver and Biliary system: Unremarkable. Spleen: Unremarkable. Adrenal Glands and Kidneys: Unremarkable. Pancreas and Retroperitoneum: Unremarkable. Aorta and Major Vessels: Aortoiliac vessels are normal in caliber containing trace calcified atherosc lerotic plaque. Bowel, Mesentery and Peritoneal space: Normal appendix. Normal caliber large bowel. There is mild flu id distention of the small bowel predominantly normal in caliber. There is a caliber change in the di stal right lower quadrant small bowel on coronal image 50. There is no free air or fluid collection. Pelvis: No pelvic lymphadenopathy. Prostate and seminal vesicles are grossly unremarkable. The urina ry bladder is mildly distended. Abdominal wall and Osseous Structures: Grade 1 anterolisthesis at L5-S1. There is mild multilevel and lower thoracic spondylosis. Moderate degenerative disc disease at L5-S1. IMPRESSION: 1. Mild fluid distention of the small bowel which are predominantly normal caliber although there is a caliber change in the distal right lower quadrant small bowel terminal ileum. This could reflect il eus associated with enteritis or partial small bowel obstruction. 2. No free air or fluid collection. Normal appendix.
[2024-07-11] VITALS (7 sets, daily range): BP systolic 127–135; BP diastolic 87–95; PULSE 76–107; RESP 16–22; TEMP 98–98.3; O2SAT 92–97
[2024-07-11] MEDS ORDERED: MORPHINE SULFATE INJ 2 MG/ml SYRG IV PRN (00:45)
[2024-07-11] MEDS ORDERED: ALBUTEROL SULF HFA 90MCG INH 200DOSE IN PRN ×2 (00:45)
[2024-07-11] MEDS ORDERED: NITROGLYCERIN 0.4 MG SL TAB SL PRN ×2 (00:45→01:00)
--- NOTE | 2024-07-11 00:45 | DVHHP2 ---
Admitting Diagnosis: Abdominal Pain History of Present Illness Patient is a 48-year-old male with a history of A-fib, hypertension, HLD, GERD, arthritis, anxiety, and anemia who presents today to the emergency department with abdominal pain. Patient was recently seen at [facility] but states that he is still experiencing symptoms. Patient reports that pain is radiating to his sternum. Patient denies any nausea vomiting or diarrhea. Patient denies any shortness of breath. While in the emergency department the patient was evaluated by the provider, As per provider: Labs, vital signs, and imagining monitored. Patient will be admitted for further evaluation and treatment. I discussed admission with the patient/family and is in agreement to treatment plan Patient Family History: Diabetes mellitus G8 FATHER, Allergies: Coded Allergies: Acetaminophen (Verified Allergy, Unknown, 03/02/23) Amoxicillin (Verified Allergy, Unknown, 03/02/23) Codeine (Verified Allergy, Unknown, 03/02/23) Hydrocodone (Verified Allergy, Unknown, 03/24/24) Ibuprofen (Verified Allergy, Unknown, 03/02/23) Penicillins (Verified Allergy, Unknown, 03/02/23) Statins (Verified Allergy, Unknown, 03/02/23) Tramadol (Verified Allergy, Unknown, 03/02/23) Uncoded Allergies: WALNUTS (Allergy, Unknown, 03/02/23) Home Meds Active Scripts Albuterol Sulfate (Albuterol Sulfate Hfa) 108 Mcg/Act Aer, 108 MCG IN TID PRN, #1 AER Prov:BENIGNO SANDSP 06/14/24 Prednisone (Prednisone) 20 Mg Tab, 20 MG PO DAILY for 5 Days, #5 MG Prov:BENIGNO SANDS VENEER MANUFACTURER 06/14/24 Benzonatate (Benzonatate) 100 Mg Cap, 1-2 CAP PO Q4HR PRN, #60 CAP Prov:BENIGNO SANDSP 06/14/24 Gabapentin (Gabapentin) 300 Mg Cap, 1 CAP PO TID, #90 CAP 5 Refills Prov:MCKENNA ROTH NP 05/24/24 Azithromycin (Azithromycin) 250 Mg Tab, 250 MG PO DAILY MDD 500 for 5 Days, #6 TAB 0 Refills 2 TABLETS ORALLY ON DAY ONE, THEN 1 TABLET ORALLY DAILY FOR 4 DAYS Prov:MCKENNA ROTH NP 05/24/24 Amiodarone HCl (Amiodarone HCl) 200 Mg Tab, 200 MG PO BID for 30 Days, #60 TAB Prov:MCKENNA ROTH NP 05/24/24 Cyclobenzaprine Hcl (Cyclobenzaprine Hcl) 10 Mg Tab, 10 MG PO TID for 10 Days, #30 TAB Prov:ZEKE FISHER MD 04/30/24 Metoclopramide Hcl (Reglan) 10 Mg Tab, 10 MG PO BID for 14 Days, #28 TAB Prov:ZEKE FISHER MD 04/30/24 Promethazine Hcl (Promethazine Hcl) 25 Mg Tab, 1 TAB PO Q6HPRN for 14 Days, #56 TAB Prov:BLARIE MCLEODP 03/26/24 Sucralfate (Sucralfate) 1 Gm Tab, 1 TAB PO QID for 30 Days, #120 TAB Prov:MCKENNA ROTH NP 11/15/23 Pantoprazole Sodium Sesquihydr (Pantoprazole Sodium) 40 Mg Tab, 1 TAB PO BID for 30 Days, #60 TAB Prov:MCKENNA ROTH NP 11/15/23 Reported Medications Ketoconazole (Ketoconazole) 2 % Cre, 1 APPLIC TOP BID, #60 GRAMS 1 Refill 05/18/24 Clotrimazole (Clotrimazole) 1 % Cre, 1 APPLIC TOP Q12HR for 30 Days, APPLIC 05/18/24 Amlodipine Besylate (Amlodipine Besylate) 5 Mg Tab, 10 MG PO DAILY for 30 Days, MG 05/18/24 Atogepant (Qulipta) 60 Mg Tab, 60 MG PO, TAB 05/18/24 Labetalol HCl (Labetalol Hydrochloride) 200 Mg Tab, 1 TAB PO BID 03/25/24 Tamsulosin HCl (Tamsulosin Hydrochloride) 0.4 Mg Cap, 0.4 MG PO DAILY, CAP 03/25/24 Beclomethasone Dipropionate (Qvar Redihaler) 80 Mcg/Act Aer, 2 PUFF IN BID, AER 03/25/24 Docusate Sodium (Colace) 100 Mg Cap, 100 MG PO BID PRN for FOR CONSTIPATION, CAP 03/25/24 Albuterol Sulfate (Albuterol Sulfate Hfa) 108 Mcg/Act Aer, 1 PUFF INH Q4HPRN PRN for SHORTNESS OF BREATH 03/25/24 Hydroxyzine Hcl (Hydroxyzine Hcl) 25 Mg Tab, 20 MG PO DAILY PRN for FOR ITCHING, TAB 03/25/24 Magnesium Oxide (Magnesium Oxide) 400 Mg Tab, 1 TAB PO DAILY 11/14/23 Triamcinolone Acetonide (Triamcinolone Acetonide) 0.1 % Pst, 1 APPLIC TOP BID, APPLIC both arms 10/12/23 Albuterol Sulfate (VENTOLIN MDI) 90 Mcg Ih, 90 MCG IN Q4HP, INH 10/12/23 Apixaban Base (ELIQUIS) 5 Mg Tab, 5 MG PO BID, TAB 10/12/23 Evolocumab (Repatha) 140 Mg/Ml Inj, 1 ML SC, INJ take once every 24 days 10/12/23 Hctz (Hydrochlorothiazide) 25 Mg Tab, 25 MG PO DAILY, TAB 10/12/23 Dicyclomine Hcl (Dicyclomine Hcl) 20 Mg Tab, 10 MG PO TID, MG 10/12/23 Cholecalciferol (VITAMIN D3) 2,000 Unit Tab, 1 TAB PO DAILY, #30 TAB 5 Refills 10/12/23 Diphenhydramine Hcl (Banophen) 25 Mg Cap, 25 MG PO BID, CAP 10/12/23 Current Medications Current Medications Medications (Trade) Dose Ordered Sig/Yesenia Route PRN Reason Start Time Stop Time Status Last Admin Temazepam (Restoril) 15 mg QHSP PRN PO FOR INSOMNIA 07/11/24 00:45 Ondansetron HCl (Zofran) 4 mg Q4HP PRN IV NAUSEA / VOMITING 07/11/24 00:45 Enoxaparin Sodium (Lovenox) 30 mg DAILY SC 07/11/24 10:00 07/11/24 09:12 DC Nitroglycerin (Ntrostat Sublingual) 0.4 mg Q5MINP PRN SL FOR CHEST PAIN 07/11/24 00:45 07/11/24 01:04 DC Morphine Sulfate 2 mg Q30M PRN IV FOR CHEST PAIN 07/11/24 00:45 Albuterol (Ventolin Hfa) 180 mcg Q4HPRN PRN IN SHORTNESS OF BREATH 07/11/24 00:45 07/11/24 01:06 DC Albuterol (Ventolin Hfa) 108 mcg TID PRN IN SHORTNESS OF BREATH 07/11/24 00:45 07/11/24 01:02 DC Albuterol (Ventolin Hfa) 90 mcg Q4HP IN 07/11/24 02:00 07/11/24 01:02 DC Amiodarone HCl (Cordarone Tablet) 200 mg BID PO 07/11/24 10:00 07/11/24 10:37 Apixaban (Eliquis) 5 mg BID PO 07/11/24 10:00 07/11/24 09:16 DC Labetalol HCl (Normodyne Tablet) 200 mg BID PO 07/11/24 10:00 07/11/24 10:38 Pantoprazole Sodium (Protonix Tablet) 40 mg BID PO 07/11/24 10:00 07/11/24 10:37 Tamsulosin HCl (Flomax) 0.4 mg DAILY PO 07/11/24 10:00 07/11/24 10:38 Nitroglycerin (Ntrostat Sublingual) 0.4 mg Q5MINP PRN SL FOR CHEST PAIN 07/11/24 01:00 Hydromorphone HCl (Dilaudid Injection) 0.5 mg Q4HP PRN IV PAIN SCALE 7 THRU 10 07/11/24 01:00 07/11/24 13:51 Albuterol (Ventolin Medneb) 2.5 mg Q4HP PRN NEB SHORTNESS OF BREATH 07/11/24 01:15 Apixaban (Eliquis) 5 mg BID PO 07/11/24 10:00 07/11/24 19:04 DC 07/11/24 10:37 Sodium Chloride 1,000 ml @ 75 mls/hr [id number] IV 07/11/24 19:15 Enoxaparin Sodium (Lovenox) 90 mg Q12HR SC 07/11/24 22:00 UNV Review of Systems Constitutional: denies chills, denies fever, denies malaise Eyes: denies eye pain, denies vision change ENT: denies ear pain, denies headache, denies nasal congestion, denies painful swallowing, denies voice change Cardiovascular: denies chest pain, denies edema, denies orthopnea, denies palpitations, denies paroxysmal nocturnal dyspnea Respiratory: denies cough, denies shortness of breath Gastrointestinal: denies constipation, denies diarrhea, denies nausea, denies vomiting Genitourinary: denies dysuria, denies frequent urination, denies urethral discharge Musculoskeletal: back pain, denies joint pain, denies muscle pain Skin: denies bruising, denies itching, denies rash Neurological: denies focal weakness, denies headache, denies sensory changes Psychiatric: denies anxiety, denies depression Endocrine: denies polydipsia, denies polyuria Hematologic/Lymphatic: denies easy bleeding, denies easy bruising, denies enlarged lymph nodes Allergic/Immunologic: denies allergy, denies hives Vital Signs Vital Signs Date Time Temp Pulse Resp B/P (MAP) Pulse Ox O2 Delivery O2 Flow Rate FiO2 07/11/24 20:00 77 07/11/24 19:54 16 95 Nasal Cannula* 2 28 07/11/24 19:54 98.2 110/67 (81) 98.2 Physical Exam General Appearance: alert, no distress HEENT: EOMI, PERRLA, normal external inspect of ears, no icterus, no nasal drainage Neck: no carotid bruit, no jugular venous distention (JVD), no lymphadenopathy Chest: normal thorax Respiratory: clear to auscultation, normal air movement Cardiovascular: no jugular venous distention (JVD), no rub, no systolic murmur Genitourinary: grossly normal external Musculoskeletal: no joint tenderness, no swelling Extremities: normal pulses, no calf tenderness, no clubbing, no cyanosis, no edema Skin: no bruising, no jaundice, no rash Neurological: alert, No focal deficit Results Labs Test 07/10/24 20:36 07/10/24 19:00 Range/Units Sodium Level 137 136-145 mmol/L Potassium Level 4.2 3.5-5.1 mmol/L Chloride Level 104 98-107 mmol/L Carbon Dioxide Level 24 20-31 mmol/L Anion Gap 9 5-15 Blood Urea Nitrogen 14 9-23 mg/dL Creatinine 1.56 H 0.700-1.30 mg/dL Glomerular Filtration Rate Calc 54 >90 mL/min BUN/Creatinine Ratio 9.0 L 10.0-20.0 Serum Glucose 127 H 74-106 mg/dL Calcium Level 10.4 8.7-10.4 mg/dL Total Bilirubin 0.5 0.2-1.0 mg/dL Aspartate Amino Transferase (AST) 35 13-40 U/L Alanine Aminotransferase (ALT) 49 H 7-40 U/L Alkaline Phosphatase 80 46-116 U/L Total Protein 8.0 5.7-8.2 g/dL Albumin 5.3 H 3.2-4.8 g/dL Lipase 42 12-53 U/L Urine Color Light-yellow Yellow Urine Clarity Clear Clear Urine pH 5.5 5.0-9.0 Urine Specific [place] 1.017 1.001-1.035 Urine Protein Negative Negative Urine Ketones Negative Negative Urine Blood Negative Negative /uL Urine Nitrite Negative Negative Urine Bilirubin Negative Negative Urine Urobilinogen Normal Negative mg/dL Urine Leukocyte Esterase Negative Negative /uL Urine RBC 1 0 - 3 /hpf Urine Microscopic WBC 1 0-3 /HPF Urine Squamous Epithelial Cells None seen <5 /hpf Urine Bacteria None seen None Seen /hpf Urine Glucose Normal Normal mg/dL Admitting Diagnosis: 1. SBO Surgical consult, NGT to LCS 2. GERD PPI, monitor 3. Anxiety Monitor 4. HLD Medication, monitoring 5. History of A-fib Monitor EKG Plan discussed with: Patient, Other MCKENNA ROTH NP Jul 11, 2024 00:45
[2024-07-11] MEDS ORDERED: ALBUTEROL SULF 2.5 MG/0.5ML(0.5%) NEB SOLN NEB PRN (01:15)
[2024-07-11] MEDS ORDERED: ALBUTEROL SULF HFA 90MCG INH 200DOSE IN SCH (02:00)
[2024-07-11] MEDS: HYDROmorphone HCL 2 MG/ML VL/or syr IV PRN (04:25)
--- NOTE | 2024-07-11 09:18 | DVH ---
EXAM: XY CHEST PORTABLE Indication: S/P NG TUBE PLACEMENT Technique: Single frontal view of the chest was obtained Comparison: XY CHEST XRAY 1 VIEW on DOS: 06/14/24, XY CHEST XRAY 1 VIEW on DOS: 05/23/24, XY CHEST PORT ABLE on DOS: 03/24/24, XY CHEST PORTABLE on DOS: 02/11/24, XY CHEST PORTABLE on DOS: 11/12/23 FINDINGS: Lines and Tubes: Enteric tube tip projects over the gastroesophageal junction. Recommend advancement . Lungs: Diffuse interstitial opacities. Pleura: No effusion. No pneumothorax. Cardiomediastinal contours: Unremarkable Bones: No acute osseous abnormality. IMPRESSION: Enteric tube tip projects over the gastroesophageal junction. Recommend advancement.
[2024-07-11] MEDS ORDERED: APIXABAN 5 MG TAB PO SCH (10:00)
[2024-07-11] MEDS ORDERED: ENOXAPARIN SOD 30 MG/0.3 ML SYRINGE SC SCH (10:00)
[2024-07-11] MEDS: AMIODARONE HCL 200 MG TAB PO SCH (10:37)
[2024-07-11] MEDS: APIXABAN 5 MG TAB PO SCH (10:37)
[2024-07-11] MEDS: PANTOPRAZOLE 40 MG TAB PO SCH (10:37)
[2024-07-11] MEDS: LABETALOL HCL 200 MG TAB PO SCH (10:38)
[2024-07-11] MEDS: TAMSULOSIN HYDROCHLORIDE 0.4 MG CAP PO SCH (10:38)
--- NOTE | 2024-07-11 11:58 | DVH ---
EXAM: XY CHEST PORTABLE Indication: S/P ADVANCEMENT OF NG TUBE Technique: Single frontal view of the chest was obtained Comparison: XY CHEST PORTABLE on DOS: 07/11/24, XY CHEST XRAY 1 VIEW on DOS: 06/14/24, XY CHEST XRAY 1 V IEW on DOS: 05/23/24, XY CHEST PORTABLE on DOS: 03/24/24, XY CHEST PORTABLE on DOS: 02/11/24 FINDINGS: Lines and Tubes: Enteric tube tip projects over the stomach. Lungs: No focal consolidation. Pleura: No effusion. No pneumothorax. Cardiomediastinal contours: Unremarkable Bones: No acute osseous abnormality. IMPRESSION: Enteric tube in appropriate position.
[2024-07-11] MEDS: ENOXAPARIN SOD 100 MG/1 ML SYRINGE SC SCH (22:00)
[2024-07-11] MEDS ORDERED: MET25T PO (23:05)
[2024-07-11] MEDS ORDERED: DRON400T PO (23:05)
[2024-07-11] MEDS ORDERED: EVOL140I2 SC (23:05)
[2024-07-11] MEDS ORDERED: PRAV20TA3 PO (23:05)
[2024-07-11] MEDS: SODIUM CHLORIDE 0.9% 1,000 ML IV SCH (23:06)
[2024-07-12] VITALS (10 sets, daily range): BP systolic 108–118; BP diastolic 48–75; PULSE 66–95; RESP 16–20; TEMP 98.3–98.5; O2SAT 95–99
[2024-07-12 07:29] LABS: Basophils # (auto) 0 10 ^3/uL (0-0.2); Basophils % (auto) 0.3 % (0.0-2.0); Eosinophils # (auto) 0.1 10 ^3/uL (0-0.8); Eosinophils % (auto) 2.1 % (0.0-7.0); Hematocrit 42.5 % (41.0-53.0); Hemoglobin 14.6 g/dL (13.5-17.5); Lymphocytes # (auto) 0.7 10 ^3/uL (0.4-5.4); Lymphocytes % (auto) 16.9 % (10.0-50.0); Mean Corpuscular Hemoglobin 33.5 pg (28.0-32.0); Mean Corpuscular Hgb Conc. 34.3 g/dL (32.0-36.0); Mean Corpuscular Volume 97.6 fL (80.0-100.0); Monocytes # (auto) 0.3 10 ^3/uL (0-1.3); Monocytes % (auto) 7.1 % (0.0-12.0); Neutrophils # (auto) 3.3 10 ^3/uL (1.6-8.6); Neutrophils % (auto) 73.6 % (37.0-80.0); Nucleated Red Blood Cells % 0.1 %; Platelet Count (auto) 215 10^3/uL (140-450); Red Blood Cells 4.35 10^6/uL (4.5-5.90); White Blood Cell 4.4 10^3/uL (4.4-10.8)
--- NOTE | 2024-07-12 13:05 | DVH ---
EXAM: XY CHEST XRAY 1 VIEW Indication: NG TUBE PLACEMENT Technique: Single frontal view of the chest was obtained Comparison: XY CHEST PORTABLE on DOS: 07/11/24, XY CHEST PORTABLE on DOS: 07/11/24, XY CHEST XRAY 1 VIEW on DOS: 06/14/24, XY CHEST XRAY 1 VIEW on DOS: 05/23/24, XY CHEST PORTABLE on DOS: 03/24/24 FINDINGS: Lines and Tubes: Enteric tube tip projects over the distal stomach. Lungs: Low lung volumes. Pleura: No effusion. No pneumothorax. Cardiomediastinal contours: Unremarkable Bones: No acute osseous abnormality. IMPRESSION: Lung volumes. Enteric tube in appropriate position. No acute cardiopulmonary disease.
--- NOTE | 2024-07-12 14:17 | DVHPN2 ---
Progress Note - Dictate Date Seen: Jul 12, 2024 Medical Necessity Reason Pt with a Central, PICC or Fol: No vital signs Vital Sign Date Time Temp Pulse Resp B/P (MAP) Pulse Ox O2 Delivery O2 Flow Rate FiO2 07/12/24 12:30 98.4 66 16 110/74 (86) 95 98.4 07/12/24 08:05 Nasal Cannula* 2 28 Total Intake and Output 07/11/24 07/11/24 07/12/24 15:00 23:00 07:00 Intake Total 525 ml Output Total 250 ml 0 ml Balance -250 ml 525 ml medications Current Medications Medications Dose Ordered Sig/Yesenia Route Start Time Stop Time Status Last Admin Dose Admin Temazepam 15 mg QHSP PRN PO 07/11/24 00:45 Ondansetron HCl 4 mg Q4HP PRN IV 07/11/24 00:45 Morphine Sulfate 2 mg Q30M PRN IV 07/11/24 00:45 Amiodarone HCl 200 mg BID PO 07/11/24 10:00 07/12/24 09:00 200 MG Labetalol HCl 200 mg BID PO 07/11/24 10:00 07/12/24 09:01 200 MG Pantoprazole Sodium 40 mg BID PO 07/11/24 10:00 07/12/24 09:01 40 MG Tamsulosin HCl 0.4 mg DAILY PO 07/11/24 10:00 07/12/24 09:01 0.4 MG Nitroglycerin 0.4 mg Q5MINP PRN SL 07/11/24 01:00 Hydromorphone HCl 0.5 mg Q4HP PRN IV 07/11/24 01:00 07/12/24 09:00 0.5 MG Albuterol 2.5 mg Q4HP PRN NEB 07/11/24 01:15 Sodium Chloride 1,000 ml @ 75 mls/hr [id number] IV 07/11/24 19:15 07/12/24 08:35 75 MLS/HR Enoxaparin Sodium 90 mg Q12HR SC 07/11/24 22:00 07/12/24 09:00 90 MG objective General Appearance: alert, no distress HEENT: EOMI, PERRLA, normal external inspect of ears, no icterus, no nasal drainage Neck: no carotid bruit, no jugular venous distention (JVD), no lymphadenopathy Chest: normal thorax Respiratory: clear to auscultation, normal air movement Cardiovascular: regular rate and rhythm, no diastolic murmur, no jugular venous distention (JVD), no rub, no systolic murmur Abdominal: soft, no hepatomegaly, no mass, no splenomegaly, no tenderness Genitourinary: grossly normal external Musculoskeletal: no joint tenderness, no swelling Extremities: normal pulses, no calf tenderness, no clubbing, no cyanosis, no edema Skin: no bruising, no jaundice, no rash Neurological: alert, No focal deficit laboratory and microbiology Laboratory Tests 07/12/24 06:30 07/10/24 20:36 Test 07/10/24 20:36 Range/Units Serum Glucose 127 H 74-106 mg/dL Problem List 1. SBO Surgical consult, NGT to LCS, monitor 2. GERD PPI, monitor 3. Anxiety Monitor 4. HLD Medication, monitoring 5. History of A-fib Monitor EKG, monitor Assessment/Plan Subjective: Patient is awake and alert. Objective: Patient's still currently NPO. Patient was admitted for abdominal pain related to ileus versus small bowel obstruction. Patient apparently had his NG tube removed last night. I did educate patient about the importance of the NG tube and that it is as needed in case he has a small bowel obstruction. Patient was seen by GI. Small bowel series has been ordered. Plan: Continue current treatment. Pending small bowel series. Remain NPO at this time. Plan discussed with: Patient, Other MCKENNA ROTH NP Jul 12, 2024 14:16
--- NOTE | 2024-07-12 14:27 | DVHINCON2 ---
Date of service: Jul 12, 2024 Family History: Diabetes mellitus G8 FATHER, Allergies: Coded Allergies: Acetaminophen (Verified Allergy, Unknown, 03/02/23) Amoxicillin (Verified Allergy, Unknown, 03/02/23) Codeine (Verified Allergy, Unknown, 03/02/23) Hydrocodone (Verified Allergy, Unknown, 03/24/24) Ibuprofen (Verified Allergy, Unknown, 03/02/23) Penicillins (Verified Allergy, Unknown, 03/02/23) Statins (Verified Allergy, Unknown, 03/02/23) Tramadol (Verified Allergy, Unknown, 03/02/23) Uncoded Allergies: WALNUTS (Allergy, Unknown, 03/02/23) Home Meds Active Scripts Albuterol Sulfate (Albuterol Sulfate Hfa) 108 Mcg/Act Aer, 108 MCG IN TID PRN, #1 AER Prov:BENIGNO SANDS [facility] 06/14/24 Benzonatate (Benzonatate) 100 Mg Cap, 1-2 CAP PO Q4HR PRN, #60 CAP Prov:BENIGNO SANDSP 06/14/24 Gabapentin (Gabapentin) 300 Mg Cap, 1 CAP PO TID, #90 CAP 5 Refills Prov:MCKENNA ROTH [employer] 05/24/24 Amiodarone HCl (Amiodarone HCl) 200 Mg Tab, 200 MG PO BID for 30 Days, #60 TAB Prov:MCKENNA ROTH [employer] 05/24/24 Sucralfate (Sucralfate) 1 Gm Tab, 1 TAB PO QID for 30 Days, #120 TAB Prov:MCKENNA ROTH [employer] 11/15/23 Pantoprazole Sodium Sesquihydr (Pantoprazole Sodium) 40 Mg Tab, 1 TAB PO BID for 30 Days, #60 TAB Prov:MCKENNA ROTH [employer] 11/15/23 Reported Medications Evolocumab (Repatha Sureclick) 140 Mg/Ml Inj, SC 1 PRE-FILLED PEN EVERY 2 WEEKS 07/11/24 Dronedarone Hydrochloride (Multaq) 400 Mg Tab, 1 TAB PO BID 07/11/24 Pravastatin Sodium (PRAVACHOL TABLET) 20 Mg Tb, 40 MG PO DAILY 07/11/24 Metoprolol Tartrate (Lopressor) 25 Mg Tb, 50 TAB PO BID 07/11/24 Ketoconazole (Ketoconazole) 2 % Cre, 1 APPLIC TOP BID, #60 GRAMS 1 Refill 05/18/24 Clotrimazole (Clotrimazole) 1 % Cre, 1 APPLIC TOP Q12HR for 30 Days, APPLIC 05/18/24 Amlodipine Besylate (Amlodipine Besylate) 5 Mg Tab, 10 MG PO DAILY for 30 Days, MG 05/18/24 Atogepant (Qulipta) 60 Mg Tab, 60 MG PO DAILY, TAB 05/18/24 Labetalol HCl (Labetalol Hydrochloride) 200 Mg Tab, 1 TAB PO BID 03/25/24 Tamsulosin HCl (Tamsulosin Hydrochloride) 0.4 Mg Cap, 0.4 MG PO DAILY, CAP 03/25/24 Beclomethasone Dipropionate (Qvar Redihaler) 80 Mcg/Act Aer, 2 PUFF IN BID, AER 03/25/24 Docusate Sodium (Colace) 100 Mg Cap, 100 MG PO BID PRN for FOR CONSTIPATION, CAP 03/25/24 Albuterol Sulfate (Albuterol Sulfate Hfa) 108 Mcg/Act Aer, 1 PUFF INH Q4HPRN PRN for SHORTNESS OF BREATH 03/25/24 Hydroxyzine Hcl (Hydroxyzine Hcl) 25 Mg Tab, 20 MG PO DAILY PRN for ANXIETY, TAB 03/25/24 Albuterol Sulfate (VENTOLIN MDI) 90 Mcg Ih, 90 MCG IN Q4HP, INH 10/12/23 Apixaban Base (ELIQUIS) 5 Mg Tab, 5 MG PO BID, TAB 10/12/23 Dicyclomine Hcl (Dicyclomine Hcl) 20 Mg Tab, 10 MG PO BID PRN for ABD MUSCLE SPASM, MG 10/12/23 Current Medications Current Medications Medications (Trade) Dose Ordered Sig/Yesenia Route PRN Reason Start Time Stop Time Status Last Admin Sodium Chloride 1,000 ml @ 75 mls/hr [id number] IV 07/11/24 19:15 07/12/24 08:35 Enoxaparin Sodium (Lovenox) 90 mg Q12HR SC 07/11/24 22:00 07/12/24 09:00 Vital Signs Vital Signs Date Time Temp Pulse Resp B/P (MAP) Pulse Ox O2 Delivery O2 Flow Rate FiO2 07/12/24 12:30 98.4 66 16 110/74 (86) 95 98.4 07/12/24 08:05 Nasal Cannula* 2 28 Labs/Diagnostic Data Labs Test 07/12/24 06:30 07/10/24 20:36 07/10/24 19:00 Range/Units White Blood Count 4.4 4.4-10.8 10^3/uL Red Blood Count 4.35 L 4.5-5.90 10^6/uL Hemoglobin 14.6 13.5-17.5 g/dL Hematocrit 42.5 41.0-53.0 % Mean Corpuscular Volume 97.6 80.0-100.0 fL Mean Corpuscular Hemoglobin 33.5 H 28.0-32.0 pg Mean Corpuscular Hemoglobin Concent 34.3 32.0-36.0 g/dL Red Cell Distribution Width 15.0 H 11.8-14.3 % Platelet Count 215 140-450 10^3/uL Mean Platelet Volume 7.0 6.9-10.8 fL Neutrophils (%) (Auto) 73.6 37.0-80.0 % Lymphocytes (%) (Auto) 16.9 10.0-50.0 % Monocytes (%) (Auto) 7.1 0.0-12.0 % Eosinophils (%) (Auto) 2.1 0.0-7.0 % Basophils (%) (Auto) 0.3 0.0-2.0 % Neutrophils # (Auto) 3.3 1.6-8.6 10 ^3/uL Lymphocytes # (Auto) 0.7 0.4-5.4 10 ^3/uL Monocytes # (Auto) 0.3 0-1.3 10 ^3/uL Eosinophils # (Auto) 0.1 0-0.8 10 ^3/uL Basophils # (Auto) 0 0-0.2 10 ^3/uL Nucleated Red Blood Cells 0.1 % Sodium Level 137 136-145 mmol/L Potassium Level 4.2 3.5-5.1 mmol/L Chloride Level 104 98-107 mmol/L Carbon Dioxide Level 24 20-31 mmol/L Anion Gap 9 5-15 Blood Urea Nitrogen 14 9-23 mg/dL Creatinine 1.56 H 0.700-1.30 mg/dL Glomerular Filtration Rate Calc 54 >90 mL/min BUN/Creatinine Ratio 9.0 L 10.0-20.0 Serum Glucose 127 H 74-106 mg/dL Calcium Level 10.4 8.7-10.4 mg/dL Total Bilirubin 0.5 0.2-1.0 mg/dL Aspartate Amino Transferase (AST) 35 13-40 U/L Alanine Aminotransferase (ALT) 49 H 7-40 U/L Alkaline Phosphatase 80 46-116 U/L Total Protein 8.0 5.7-8.2 g/dL Albumin 5.3 H 3.2-4.8 g/dL Lipase 42 12-53 U/L Urine Color Light-yellow Yellow Urine Clarity Clear Clear Urine pH 5.5 5.0-9.0 Urine Specific [place] 1.017 1.001-1.035 Urine Protein Negative Negative Urine Ketones Negative Negative Urine Blood Negative Negative /uL Urine Nitrite Negative Negative Urine Bilirubin Negative Negative Urine Urobilinogen Normal Negative mg/dL Urine Leukocyte Esterase Negative Negative /uL Urine RBC 1 0 - 3 /hpf Urine Microscopic WBC 1 0-3 /HPF Urine Squamous Epithelial Cells None seen <5 /hpf Urine Bacteria None seen None Seen /hpf Urine Glucose Normal Normal mg/dL Assessment [id number] AFEBRILE VSS ABD SOFT MILD DISTENSION NO REBOUND NON TENDER BM + RESOLVING ILEUS/ SBO CONSIDER GASTROGRAFIN STUDY NURSE AT BEDSIDE Plan discussed with: Patient ANI MALCOLM MD Jul 12, 2024 14:27
[2024-07-12] MEDS: GASTROGRAFIN 120 ML SOL ONE (14:59)
--- NOTE | 2024-07-12 14:59 | DVH ---
Date: 07/12/2024 02:29 PM Examination: XY KUB ABDOMEN SINGLE VIEW History: r/o sbo Comparison: XY KUB ABDOMEN SINGLE VIEW on DOS: 05/21/24, XY KUB ABDOMEN SINGLE VIEW on DOS: 05/20/24, X Y KUB ABDOMEN SINGLE VIEW on DOS: 11/12/23, XY KUB ABDOMEN SINGLE VIEW on DOS: 10/15/23 TECHNIQUE: Frontal views of the abdomen was obtained. FINDINGS: Bowel gas pattern is unremarkable. Enteric tube tip projects over the distal stomach. The lung bases are unremarkable. No acute osseous abnormality identified. IMPRESSION: Nonobstructive bowel gas pattern. Enteric tube tip projects over the distal stomach.
--- NOTE | 2024-07-12 15:00 | DVHINCON2 ---
DATE OF CONSULTATION: 07/12/2024 HISTORY OF PRESENT ILLNESS: He is 48 years old coming in with abdominal pain, distention, and he did have a bowel movement this morning and he has passage of flatus. No nausea or vomiting. He has an NG tube in place. No hematemesis or melena. No bleeding per rectum. PAST MEDICAL HISTORY: No hypertension or diabetes. PAST SURGICAL HISTORY: Nothing significant in the abdomen. PHYSICAL EXAMINATION: VITAL SIGNS: Afebrile. Stable signs. HEENT: No evidence of pallor, cyanosis, or jaundice. NECK: Supple. Nontender with no thyromegaly or lymphadenopathy. CHEST AND LUNGS: Clear. HEART: Within normal limits. ABDOMEN: Soft. Minimally distended. No rebound. Does not have an acute abdomen. NEUROLOGIC: Not assessed. CLINICAL IMPRESSION: Rule out partial small bowel obstruction/ileus. At this point, does not need acute surgical intervention. PLAN: Keep him under close observation. Give a Gastrografin study, small bowel follow through to rule out bowel obstruction and to determine the need for surgery. MD VINCE Knight/SHAHLA TID: [id number] RECEIPT: [id number] cc: Emy Yuan NP
[2024-07-12] MEDS: ONDANSETRON HCL 4 MG/2 ML VIAL IV PRN (16:29)
--- NOTE | 2024-07-12 16:41 | DVH ---
Procedure: XY SMALL BOWEL SERIES-W GASTROGRA Exam Date: 07/12/2024 03:18 PM Reason for study/Clinical History: ABDOMINAL PAIN, SBO Comparison Study: None available at time of dictation. Technique: Single contrast small bowel series performed. Findings: Initial harvesting supervisor view of the abdomen and pelvis appears demonstrates no acute process. Contrast is identified within the colon by 1 hour. This represents a normal small bowel transit time . Small bowel loops are normal in size. Normal mucosal pattern. No evidence of small bowel obstructi on, stricture, or mucosal abnormality. The terminal ileum is well visualized and is unremarkable. IMPRESSION: Normal small bowel series. END IMPRESSION:
[2024-07-13] VITALS (9 sets, daily range): BP systolic 102–121; BP diastolic 60–75; PULSE 58–77; RESP 17–20; TEMP 97.9–98.7; O2SAT 92–98
[2024-07-13 13:48] LABS: Urine Bacteria FEW /hpf (None Seen); Urine Blood 3+ /uL (Negative); Urine Budding Yeast MANY /hpf (None Seen); Urine Clarity Turbid (Clear); Urine Color Colorless (Yellow); Urine Protein, UAD 2+ (Negative); Urine Specific Gravity 1.011 (1.001-1.035); Urine Squamous Epithelial Cell None Seen /hpf (<5); Urine Urobilinogen Normal (Negative); Urine WBC 149 /HPF (0-3); Urine WBC Clumps PRESENT /hpf (None Seen)
--- NOTE | 2024-07-13 14:49 | DVHPN2 ---
Progress Note - Dictate Date Seen: Jul 14, 2024 Medical Necessity Reason Pt with a Central, PICC or Fol: No vital signs Vital Sign Date Time Temp Pulse Resp B/P (MAP) Pulse Ox O2 Delivery O2 Flow Rate FiO2 07/13/24 14:25 75 17 121/70 07/13/24 13:00 98.2 97 98.2 07/13/24 08:15 Nasal Cannula* 2 28 Total Intake and Output 07/12/24 07/12/24 07/13/24 15:00 23:00 07:00 Output Total 60 ml Balance -60 ml medications Current Medications Medications Dose Ordered Sig/Yesenia Route Start Time Stop Time Status Last Admin Dose Admin Temazepam 15 mg QHSP PRN PO 07/11/24 00:45 Ondansetron HCl 4 mg Q4HP PRN IV 07/11/24 00:45 07/13/24 08:09 4 MG Morphine Sulfate 2 mg Q30M PRN IV 07/11/24 00:45 Amiodarone HCl 200 mg BID PO 07/11/24 10:00 07/13/24 10:16 200 MG Labetalol HCl 200 mg BID PO 07/11/24 10:00 07/13/24 10:17 200 MG Pantoprazole Sodium 40 mg BID PO 07/11/24 10:00 07/13/24 10:16 40 MG Tamsulosin HCl 0.4 mg DAILY PO 07/11/24 10:00 07/13/24 10:16 0.4 MG Nitroglycerin 0.4 mg Q5MINP PRN SL 07/11/24 01:00 Hydromorphone HCl 0.5 mg Q4HP PRN IV 07/11/24 01:00 07/13/24 14:25 0.5 MG Albuterol 2.5 mg Q4HP PRN NEB 07/11/24 01:15 Sodium Chloride 1,000 ml @ 75 mls/hr [id number] IV 07/11/24 19:15 07/13/24 11:15 75 MLS/HR Enoxaparin Sodium 90 mg Q12HR SC 07/11/24 22:00 07/13/24 10:16 90 MG objective General Appearance: alert, no distress HEENT: EOMI, PERRLA, normal external inspect of ears, no icterus, no nasal drainage Neck: no carotid bruit, no jugular venous distention (JVD), no lymphadenopathy Chest: normal thorax Respiratory: clear to auscultation, normal air movement Cardiovascular: regular rate and rhythm, no diastolic murmur, no jugular venous distention (JVD), no rub, no systolic murmur Abdominal: soft, no hepatomegaly, no mass, no splenomegaly, no tenderness Genitourinary: grossly normal external Musculoskeletal: no joint tenderness, no swelling Extremities: normal pulses, no calf tenderness, no clubbing, no cyanosis, no edema Skin: no bruising, no jaundice, no rash Neurological: alert, No focal deficit laboratory and microbiology Laboratory Tests 07/12/24 06:30 07/10/24 20:36 Test 07/10/24 20:36 Range/Units Serum Glucose 127 H 74-106 mg/dL Problem List 1. SBO Surgical consult, NGT to LCS, monitor 2. GERD PPI, monitor 3. Anxiety Monitor 4. HLD Medication, monitoring 5. History of A-fib Monitor EKG, monitor Assessment/Plan Subjective Patient is awake and alert. Objective Patient had a small bowel series done. Patient had two large bowel movements. Bowel obstruction was ruled out. NG tube was removed. Patient was placed on a clear diet but is still having intermittent abdominal pain. CT imaging had no acute findings. Patient was seen by GI and has an outpatient appointment for colonoscopy. Plan Advance diet as tolerated. Possible discharge plan for tomorrow. Plan discussed with: Patient, Other MCKENNA ROTH NP Jul 13, 2024 14:49
--- NOTE | 2024-07-13 15:14 | DVHINCON2 ---
GI Consult Consult Note GI consult note Date of Consultation: 07/13/2024 Chief Complaint: Ileus versus small-bowel obstruction Referring Physician: GONZALEZ GARCIA H&P: 48-year-old male admitted with abdominal pain Patient complaining of lower abdominal pain for one day which radiates to the side of his abdomen No nausea or vomiting. Denies hematemesis Last bowel movement this morning, loose stool, no melena or red blood in stool Patient is still feels abdominal bloated but it is improving DATE OF OPERATION: 05/22/24 PROCEDURE: Upper Endoscopy with biopsy. PREOPERATIVE INDICATION: The patient is a 48 -year-old male undergoing endoscopy for GERD abdominal pain and history of peptic ulcer disease POSTOPERATIVE DIAGNOSES: 1. 0.5-1 cm sliding-type hiatal hernia with no significant erosive esophagitis and GE junction biopsies were obtained 2. Minimal antral gastritis otherwise normal examination up to the 2nd and 3rd part of the duodenum PROCEDURE PERFORMED BY: Erna Troy Past Medical History: AFIB, Anxiety, Arthritis, Asthma, GERD, High Lipids, HTN Past Surgical History: Denies Social History: NO smoking, drinking ETOH and use of illegal drugs. Family History: Noncontributory Review of Systems: Constitutional: no fever, chill, weight loss HEENT: no eye pain, no hearing loss, no oral lesion, no scleral icterus Heart: no chest pain, no chest pressure Lung: no cough, no dyspnea with exertion Abdomen: see HPI Physical exam: General: NAD, AAOX3 Chest: lung andre clear to auscultation Heart: RRR, no murmur Abdomen: Mild-distended, mild lower abdominal tenderness to palpation, +BS Labs: Test 07/10/24 20:36 Range/Units Serum Glucose 127 H 74-106 mg/dL Imaging: CT abdomen pelvis IMPRESSION: 1. Mild fluid distention of the small bowel which are predominantly normal caliber although there is a caliber change in the distal right lower quadrant small bowel terminal ileum. This could reflect ileus associated with enteritis or partial small bowel obstruction. 2. No free air or fluid collection. Normal appendix. Small-bowel series with Gastrografin IMPRESSION: Normal small bowel series. Assessment: Abdominal pain improved Possible small-bowel obstruction improving History of GERD Plan: Discussed with Dr. Woodrow DOMINGUEZ NG-tube Clear liquid diet Discussed colonoscopy to be scheduled for tomorrow, extensively discussed risks benefits and alternatives and conscious sedation, at this time patient does not want to do the colonoscopy We will continue to follow the patient Thank you for this consult Date of Service: Jul 13, 2024 Billing Provider: BENJAMÍN LUX Common Visit Codes: CONSULT ONLY Consultation Codes: [id number] CONSULT <45MIN BENJAMÍN LUX Jul 13, 2024 15:14
--- NOTE | 2024-07-13 23:09 | DVHPN2 ---
Progress Note Date Seen: Jul 13, 2024 Medical Necessity Reason Pt with a Central, PICC or Fol: No Objective vital signs Vital Sign Date Time Temp Pulse Resp B/P (MAP) Pulse Ox O2 Delivery O2 Flow Rate FiO2 07/13/24 22:40 58 121/72 07/13/24 21:00 98.6 18 93 98.6 07/13/24 20:00 Room Air* 0 21 Total Intake and Output 07/12/24 07/12/24 07/13/24 15:00 23:00 07:00 Output Total 60 ml Balance -60 ml medications Current Medications Medications Dose Ordered Sig/Yesenia Route Start Time Stop Time Status Last Admin Dose Admin Temazepam 15 mg QHSP PRN PO 07/11/24 00:45 Ondansetron HCl 4 mg Q4HP PRN IV 07/11/24 00:45 07/13/24 08:09 4 MG Morphine Sulfate 2 mg Q30M PRN IV 07/11/24 00:45 Amiodarone HCl 200 mg BID PO 07/11/24 10:00 07/13/24 22:40 200 MG Labetalol HCl 200 mg BID PO 07/11/24 10:00 07/13/24 22:40 200 MG Pantoprazole Sodium 40 mg BID PO 07/11/24 10:00 07/13/24 22:40 40 MG Tamsulosin HCl 0.4 mg DAILY PO 07/11/24 10:00 07/13/24 10:16 0.4 MG Nitroglycerin 0.4 mg Q5MINP PRN SL 07/11/24 01:00 Hydromorphone HCl 0.5 mg Q4HP PRN IV 07/11/24 01:00 07/13/24 14:25 0.5 MG Albuterol 2.5 mg Q4HP PRN NEB 07/11/24 01:15 Cancel Sodium Chloride 1,000 ml @ 75 mls/hr [id number] IV 07/11/24 19:15 07/13/24 11:15 75 MLS/HR Enoxaparin Sodium 90 mg Q12HR SC 07/11/24 22:00 07/13/24 22:41 90 MG laboratory and microbiology Laboratory Tests 07/12/24 06:30 07/10/24 20:36 Test 07/10/24 20:36 Range/Units Serum Glucose 127 H 74-106 mg/dL Microbiology Date/Time Source Procedure Growth Status 07/11/24 22:00 Nose MRSA Screen - Final Complete Problem List/Assessment/Plan Problem List/Assessment/Plan AFEBRILE VSS ABD SOFT LESS DISTENDED BM + RESOLVING SBO / ILEUS GASTROGRAFIN STUDY NEG FOR SBO DC NG ALLOW CLEAR LIQUIDS CLEARED FOR DISCHARGE Plan discussed with: Patient ANI MALCOLM MD Jul 13, 2024 23:09
[2024-07-14] VITALS (8 sets, daily range): BP systolic 101–135; BP diastolic 50–79; PULSE 53–76; RESP 17–20; TEMP 98.5–99.1; O2SAT 93–97
--- NOTE | 2024-07-14 20:27 | DVHPN2 ---
Progress Note Date Seen: Jul 14, 2024 Medical Necessity Reason Pt with a Central, PICC or Fol: No Objective vital signs Vital Sign Date Time Temp Pulse Resp B/P (MAP) Pulse Ox O2 Delivery O2 Flow Rate FiO2 07/14/24 17:00 99.0 65 20 115/71 (86) 94 99.0 07/14/24 08:00 Room Air* 0 21 Total Intake and Output 07/13/24 07/13/24 07/14/24 15:00 23:00 07:00 Intake Total 1014 ml Output Total 200 ml 250 ml Balance -200 ml 764 ml medications Current Medications Medications Dose Ordered Sig/Yesenia Route Start Time Stop Time Status Last Admin Dose Admin Temazepam 15 mg QHSP PRN PO 07/11/24 00:45 Ondansetron HCl 4 mg Q4HP PRN IV 07/11/24 00:45 07/14/24 10:43 4 MG Morphine Sulfate 2 mg Q30M PRN IV 07/11/24 00:45 Amiodarone HCl 200 mg BID PO 07/11/24 10:00 07/13/24 22:40 200 MG Labetalol HCl 200 mg BID PO 07/11/24 10:00 07/13/24 22:40 200 MG Pantoprazole Sodium 40 mg BID PO 07/11/24 10:00 07/14/24 10:42 40 MG Tamsulosin HCl 0.4 mg DAILY PO 07/11/24 10:00 07/14/24 10:43 0.4 MG Nitroglycerin 0.4 mg Q5MINP PRN SL 07/11/24 01:00 Hydromorphone HCl 0.5 mg Q4HP PRN IV 07/11/24 01:00 07/14/24 10:45 0.5 MG Albuterol 2.5 mg Q4HP PRN NEB 07/11/24 01:15 Cancel Sodium Chloride 1,000 ml @ 75 mls/hr [id number] IV 07/11/24 19:15 07/14/24 13:55 75 MLS/HR Enoxaparin Sodium 90 mg Q12HR SC 07/11/24 22:00 07/14/24 10:43 90 MG laboratory and microbiology Laboratory Tests 07/12/24 06:30 07/10/24 20:36 Test 07/10/24 20:36 Range/Units Serum Glucose 127 H 74-106 mg/dL Microbiology Date/Time Source Procedure Growth Status 07/11/24 22:00 Nose MRSA Screen - Final Complete Problem List/Assessment/Plan Problem List/Assessment/Plan AFEBRILE VSS ABD SOFT LESS DISTENDED BM + RESOLVING SBO / ILEUS GASTROGRAFIN STUDY NEG FOR SBO DC NG ADVANCE DIET KEVYN CLEARED FOR DISCHARGE Plan discussed with: Patient My Orders My Orders Orders - ANI MALCOLM MD Procedure Category Date Status Time Regular Diet DIET 07/15/24 Transmitted Breakfast ANI MALCOLM MD Jul 14, 2024 20:27
--- NOTE | 2024-07-14 20:37 | DVHPN2 ---
Progress Note - Dictate Date Seen: Jul 14, 2024 Medical Necessity Reason Pt with a Central, PICC or Fol: No Subjective No new complaints Patient does have some burning after drinking water EGD findings reviewed with the patient vital signs Vital Sign Date Time Temp Pulse Resp B/P (MAP) Pulse Ox O2 Delivery O2 Flow Rate FiO2 07/14/24 17:00 99.0 65 20 115/71 (86) 94 99.0 07/14/24 08:00 Room Air* 0 21 Total Intake and Output 07/13/24 07/13/24 07/14/24 15:00 23:00 07:00 Intake Total 1014 ml Output Total 200 ml 250 ml Balance -200 ml 764 ml medications Current Medications Medications Dose Ordered Sig/Yesenia Route Start Time Stop Time Status Last Admin Dose Admin Temazepam 15 mg QHSP PRN PO 07/11/24 00:45 Ondansetron HCl 4 mg Q4HP PRN IV 07/11/24 00:45 07/14/24 10:43 4 MG Morphine Sulfate 2 mg Q30M PRN IV 07/11/24 00:45 Amiodarone HCl 200 mg BID PO 07/11/24 10:00 07/13/24 22:40 200 MG Labetalol HCl 200 mg BID PO 07/11/24 10:00 07/13/24 22:40 200 MG Pantoprazole Sodium 40 mg BID PO 07/11/24 10:00 07/14/24 10:42 40 MG Tamsulosin HCl 0.4 mg DAILY PO 07/11/24 10:00 07/14/24 10:43 0.4 MG Nitroglycerin 0.4 mg Q5MINP PRN SL 07/11/24 01:00 Hydromorphone HCl 0.5 mg Q4HP PRN IV 07/11/24 01:00 07/14/24 10:45 0.5 MG Albuterol 2.5 mg Q4HP PRN NEB 07/11/24 01:15 Cancel Sodium Chloride 1,000 ml @ 75 mls/hr [id number] IV 07/11/24 19:15 07/14/24 13:55 75 MLS/HR Enoxaparin Sodium 90 mg Q12HR SC 07/11/24 22:00 07/14/24 10:43 90 MG objective General: NAD, AAOX3 Chest: lung andre clear to auscultation Heart: RRR, no murmur Abdomen: Mild-distended, mild lower abdominal tenderness to palpation, +BS laboratory and microbiology Laboratory Tests 07/12/24 06:30 07/10/24 20:36 Test 07/10/24 20:36 Range/Units Serum Glucose 127 H 74-106 mg/dL Problems(with codes): (1) UTI (urinary tract infection) (2) Nonspecific abdominal pain (3) Small bowel obstruction Prognosis Plan Patient has mild UTI, check urine cultures Ileus appears to have resolved Advance diet as tolerated My PA discussed the possibility for colonoscopy today However the patient has decided to keep his appointment for colonoscopy as an outpatient Plan discussed with: Patient (Jailyn Driscoll) MO MALCOLM MD Jul 14, 2024 20:37
--- NOTE | 2024-07-14 20:54 | DVHPN2 ---
Progress Note Date Seen: Jul 14, 2024 Medical Necessity Reason Pt with a Central, PICC or Fol: No Subjective Review of Systems: CVS:Normal, RESPIRATORY:Normal, GI:Normal, NEURO:Normal Objective vital signs Vital Sign Date Time Temp Pulse Resp B/P (MAP) Pulse Ox O2 Delivery O2 Flow Rate FiO2 07/14/24 17:00 99.0 65 20 115/71 (86) 94 99.0 07/14/24 08:00 Room Air* 0 21 Total Intake and Output 07/13/24 07/13/24 07/14/24 15:00 23:00 07:00 Intake Total 1014 ml Output Total 200 ml 250 ml Balance -200 ml 764 ml medications Current Medications Medications Dose Ordered Sig/Yesenia Route Start Time Stop Time Status Last Admin Dose Admin Temazepam 15 mg QHSP PRN PO 07/11/24 00:45 Ondansetron HCl 4 mg Q4HP PRN IV 07/11/24 00:45 07/14/24 10:43 4 MG Morphine Sulfate 2 mg Q30M PRN IV 07/11/24 00:45 Amiodarone HCl 200 mg BID PO 07/11/24 10:00 07/13/24 22:40 200 MG Labetalol HCl 200 mg BID PO 07/11/24 10:00 07/13/24 22:40 200 MG Pantoprazole Sodium 40 mg BID PO 07/11/24 10:00 07/14/24 10:42 40 MG Tamsulosin HCl 0.4 mg DAILY PO 07/11/24 10:00 07/14/24 10:43 0.4 MG Nitroglycerin 0.4 mg Q5MINP PRN SL 07/11/24 01:00 Hydromorphone HCl 0.5 mg Q4HP PRN IV 07/11/24 01:00 07/14/24 10:45 0.5 MG Albuterol 2.5 mg Q4HP PRN NEB 07/11/24 01:15 Cancel Sodium Chloride 1,000 ml @ 75 mls/hr [id number] IV 07/11/24 19:15 07/14/24 13:55 75 MLS/HR Enoxaparin Sodium 90 mg Q12HR SC 07/11/24 22:00 07/14/24 10:43 90 MG Examination: GENERAL:Normal, LUNGS:Normal, CVS:Normal, ABDOMEN:Normal, SKIN:Normal, NEURO:Normal laboratory and microbiology Laboratory Tests 07/12/24 06:30 07/10/24 20:36 Test 07/10/24 20:36 Range/Units Serum Glucose 127 H 74-106 mg/dL Microbiology Date/Time Source Procedure Growth Status 07/11/24 22:00 Nose MRSA Screen - Final Complete Labs and/or images reviewed: Labs reviewed by me Problem List/Assessment/Plan Problem List/Assessment/Plan 1. SBO Surgical consult, NGT to LCS, monitor 2. GERD PPI, monitor 3. Anxiety Monitor 4. HLD Medication, monitoring 5. History of A-fib Monitor EKG, monitor Assessment/Plan Subjective Patient is awake and alert. Objective Patient had a small bowel series done. Patient had two large bowel movements. Bowel obstruction was ruled out. NG tube was removed. Diet was advanced to soft. CT imaging had no acute findings. Patient was seen by GI and has an outpatient appointment for colonoscopy. Patient did refuse inpatient colonoscopy Plan Advance diet as tolerated. Discharge planning Plan discussed with: Patient Date of Service: Jul 14, 2024 Billing Provider: VERONICA HAYWOOD MD Common Visit Codes: [id number] INP/OBS CARE (MOD) BLAIRE MCLEOD [employer]ER [employer] Jul 14, 2024 20:54
[2024-07-15] VITALS (7 sets, daily range): BP systolic 100–135; BP diastolic 54–79; PULSE 63–74; RESP 16–20; TEMP 97.9–98.7; O2SAT 91–98
--- NOTE | 2024-07-15 10:34 | DVHPN2 ---
Progress Note Date Seen: Jul 15, 2024 Medical Necessity Reason Pt with a Central, PICC or Fol: No Objective vital signs Vital Sign Date Time Temp Pulse Resp B/P (MAP) Pulse Ox O2 Delivery O2 Flow Rate FiO2 07/15/24 10:19 64 18 135/85 07/15/24 09:00 98.5 95 98.5 07/15/24 08:00 Room Air* 0 21 Total Intake and Output 07/14/24 07/14/24 07/15/24 15:00 23:00 07:00 Intake Total 1000 ml 1165 ml Output Total 400 ml 400 ml Balance 600 ml 765 ml medications Current Medications Medications Dose Ordered Sig/Yesenia Route Start Time Stop Time Status Last Admin Dose Admin Temazepam 15 mg QHSP PRN PO 07/11/24 00:45 Ondansetron HCl 4 mg Q4HP PRN IV 07/11/24 00:45 07/14/24 21:30 4 MG Morphine Sulfate 2 mg Q30M PRN IV 07/11/24 00:45 Amiodarone HCl 200 mg BID PO 07/11/24 10:00 07/15/24 10:18 200 MG Labetalol HCl 200 mg BID PO 07/11/24 10:00 07/14/24 21:19 200 MG Pantoprazole Sodium 40 mg BID PO 07/11/24 10:00 07/15/24 08:58 40 MG Tamsulosin HCl 0.4 mg DAILY PO 07/11/24 10:00 07/15/24 10:17 0.4 MG Nitroglycerin 0.4 mg Q5MINP PRN SL 07/11/24 01:00 Hydromorphone HCl 0.5 mg Q4HP PRN IV 07/11/24 01:00 07/15/24 10:19 0.5 MG Albuterol 2.5 mg Q4HP PRN NEB 07/11/24 01:15 Cancel Sodium Chloride 1,000 ml @ 75 mls/hr [id number] IV 07/11/24 19:15 07/15/24 06:11 75 MLS/HR Enoxaparin Sodium 90 mg Q12HR SC 07/11/24 22:00 07/15/24 10:18 90 MG Polyethylene Glycol 17 gm DAILY PO 07/15/24 10:00 laboratory and microbiology Laboratory Tests 07/12/24 06:30 07/10/24 20:36 Test 07/10/24 20:36 Range/Units Serum Glucose 127 H 74-106 mg/dL Microbiology Date/Time Source Procedure Growth Status 07/11/24 22:00 Nose MRSA Screen - Final Complete Problem List/Assessment/Plan Problem List/Assessment/Plan AFEBRILE VSS ABD SOFT LESS DISTENDED BM + RESOLVING SBO / ILEUS ADVANCE DIET KEVYN R/O UTI Plan discussed with: Patient My Orders My Orders Orders - ANI MALCOLM MD Procedure Category Date Status Time Regular Diet DIET 07/15/24 Transmitted Breakfast ANI MALCOLM MD Jul 15, 2024 10:34
[2024-07-15] MEDS: POLYETHYLENE GLYCOL 17 GM PWDR PO SCH (11:26)
[2024-07-15] MEDS: cefTRIAXone 1GM/50ML D5W 50 ML IV ONE (14:55)
--- NOTE | 2024-07-15 17:11 | DVHPN2 ---
Progress Note - Dictate Date Seen: Jul 15, 2024 Medical Necessity Reason Pt with a Central, PICC or Fol: No Subjective No new complaints Patient does have some burning after drinking water EGD findings reviewed with the patient vital signs Vital Sign Date Time Temp Pulse Resp B/P (MAP) Pulse Ox O2 Delivery O2 Flow Rate FiO2 07/15/24 12:53 98.7 64 19 123/71 (88) 95 98.7 07/15/24 08:00 Room Air* 0 21 Total Intake and Output 07/14/24 07/14/24 07/15/24 15:00 23:00 07:00 Intake Total 1000 ml 1165 ml Output Total 400 ml 400 ml Balance 600 ml 765 ml medications Current Medications Medications Dose Ordered Sig/Yesenia Route Start Time Stop Time Status Last Admin Dose Admin Temazepam 15 mg QHSP PRN PO 07/11/24 00:45 Ondansetron HCl 4 mg Q4HP PRN IV 07/11/24 00:45 07/14/24 21:30 4 MG Morphine Sulfate 2 mg Q30M PRN IV 07/11/24 00:45 Amiodarone HCl 200 mg BID PO 07/11/24 10:00 07/15/24 10:18 200 MG Labetalol HCl 200 mg BID PO 07/11/24 10:00 07/15/24 11:26 200 MG Pantoprazole Sodium 40 mg BID PO 07/11/24 10:00 07/15/24 08:58 40 MG Tamsulosin HCl 0.4 mg DAILY PO 07/11/24 10:00 07/15/24 10:17 0.4 MG Nitroglycerin 0.4 mg Q5MINP PRN SL 07/11/24 01:00 Hydromorphone HCl 0.5 mg Q4HP PRN IV 07/11/24 01:00 07/15/24 10:19 0.5 MG Albuterol 2.5 mg Q4HP PRN NEB 07/11/24 01:15 Cancel Sodium Chloride 1,000 ml @ 75 mls/hr [id number] IV 07/11/24 19:15 07/15/24 06:11 75 MLS/HR Enoxaparin Sodium 90 mg Q12HR SC 07/11/24 22:00 07/15/24 10:18 90 MG Polyethylene Glycol 17 gm DAILY PO 07/15/24 10:00 07/15/24 11:26 17 GM Ceftriaxone Sodium 50 ml @ 100 mls/hr DAILY@09 IV 07/16/24 09:00 objective General: NAD, AAOX3 Chest: lung andre clear to auscultation Heart: RRR, no murmur Abdomen: Mild-distended, mild lower abdominal tenderness to palpation, +BS laboratory and microbiology Laboratory Tests 07/12/24 06:30 07/10/24 20:36 Test 07/10/24 20:36 Range/Units Serum Glucose 127 H 74-106 mg/dL Problems(with codes): (1) UTI (urinary tract infection) (2) Nonspecific abdominal pain (3) Small bowel obstruction (4) Acute asthmatic bronchitis (5) Constipation Prognosis Plan Patient more than likely had ileus related to his UTI or narcotic use Patient did not want to have a colonoscopy last week Continue medical management and advance diet as tolerated Patient is scheduled for outpatient colonoscopy next month patient will need cardiac re-evaluation and clearance prior to procedure Dietary Evaluation Review Comments: 1) Cardiac diet 2) Continue current plan of care Expected Outcomes/Goals: Pt will meet 75% estimated needs Fu 5-7 days Plan discussed with: Patient, Other (Emy Yuan) MO MALCOLM MD Jul 15, 2024 17:11
--- NOTE | 2024-07-15 19:21 | DVHPN2 ---
Progress Note Date Seen: Jul 15, 2024 Medical Necessity Reason Pt with a Central, PICC or Fol: No Subjective Patient reports: No new complaints Review of Systems: RESPIRATORY:Normal, GI:Normal, NEURO:Normal Objective vital signs Vital Sign Date Time Temp Pulse Resp B/P (MAP) Pulse Ox O2 Delivery O2 Flow Rate FiO2 07/15/24 17:00 98.5 67 16 135/79 (97) 96 98.5 07/15/24 08:00 Room Air* 0 21 Total Intake and Output 07/14/24 07/14/24 07/15/24 15:00 23:00 07:00 Intake Total 1000 ml 1165 ml Output Total 400 ml 400 ml Balance 600 ml 765 ml medications Current Medications Medications Dose Ordered Sig/Yesenia Route Start Time Stop Time Status Last Admin Dose Admin Temazepam 15 mg QHSP PRN PO 07/11/24 00:45 Ondansetron HCl 4 mg Q4HP PRN IV 07/11/24 00:45 07/14/24 21:30 4 MG Morphine Sulfate 2 mg Q30M PRN IV 07/11/24 00:45 Amiodarone HCl 200 mg BID PO 07/11/24 10:00 07/15/24 10:18 200 MG Labetalol HCl 200 mg BID PO 07/11/24 10:00 07/15/24 11:26 200 MG Pantoprazole Sodium 40 mg BID PO 07/11/24 10:00 07/15/24 08:58 40 MG Tamsulosin HCl 0.4 mg DAILY PO 07/11/24 10:00 07/15/24 10:17 0.4 MG Nitroglycerin 0.4 mg Q5MINP PRN SL 07/11/24 01:00 Hydromorphone HCl 0.5 mg Q4HP PRN IV 07/11/24 01:00 07/15/24 10:19 0.5 MG Albuterol 2.5 mg Q4HP PRN NEB 07/11/24 01:15 Cancel Sodium Chloride 1,000 ml @ 75 mls/hr [id number] IV 07/11/24 19:15 07/15/24 17:58 75 MLS/HR Enoxaparin Sodium 90 mg Q12HR SC 07/11/24 22:00 07/15/24 10:18 90 MG Polyethylene Glycol 17 gm DAILY PO 07/15/24 10:00 07/15/24 11:26 17 GM Ceftriaxone Sodium 50 ml @ 100 mls/hr DAILY@09 IV 07/16/24 09:00 Examination: GENERAL:Normal, LUNGS:Normal, CVS:Normal, ABDOMEN:Normal, NEURO:Normal laboratory and microbiology Laboratory Tests 07/12/24 06:30 07/10/24 20:36 Test 07/10/24 20:36 Range/Units Serum Glucose 127 H 74-106 mg/dL Microbiology Date/Time Source Procedure Growth Status 07/11/24 22:00 Nose MRSA Screen - Final Complete Labs and/or images reviewed: Labs reviewed by me, Image(s) reviewed by me Problem List/Assessment/Plan Problem List/Assessment/Plan 1. SBO Surgical consult, NGT to LCS, monitor 2. GERD PPI, monitor 3. Anxiety Monitor 4. HLD Medication, monitoring 5. History of A-fib Monitor EKG, monitor 6. Acute cystitis with hematuria IV Rocephin Assessment/Plan Subjective Patient is awake and alert. Objective Patient had a small bowel series done. Patient had two large bowel movements. Bowel obstruction was ruled out. NG tube was removed. Patient's diet was advanced to regular by GI, patient continues to have some abdominal pain we will continue to monitor.. CT imaging had no acute findings. Patient was seen by GI and has an outpatient appointment for colonoscopy. Patient did refuse inpatient colonoscopy. Patient was found to have acute cystitis was placed on IV Rocephin. Plan Advance diet as tolerated. Discharge planning, start IV Rocephin Plan discussed with: Patient My Orders My Orders Orders - BLAIRE MCLEOD Procedure Category Date Status Time Polyethylene Glycol PHA 07/15/24 In Process 17g Powder (Miralax 10:00 Transfer Orders XFER 07/15/24 Transmitted 11:53 Discontinue Tele DAVID 07/15/24 In Process 11:54 Ceftriaxone 1gm/50ml PHA 07/16/24 In Process D5w (Rocephin) 09:00 Dietary Evaluation Review Comments: 1) Cardiac diet 2) Continue current plan of care Expected Outcomes/Goals: Pt will meet 75% estimated needs Fu 5-7 days Date of Service: Jul 15, 2024 Billing Provider: VERONICA HAYWOOD MD Common Visit Codes: [id number] INP/OBS CARE (MOD) BLAIRE MCLEOD Jul 15, 2024 19:21
[2024-07-16] VITALS (8 sets, daily range): BP systolic 100–129; BP diastolic 56–79; PULSE 60–69; RESP 14–19; TEMP 98.5–98.8; O2SAT 95–97
[2024-07-16 07:34] LABS: Basophils # (auto) 0 10 ^3/uL (0-0.2); Basophils % (auto) 0.4 % (0.0-2.0); Eosinophils # (auto) 0.1 10 ^3/uL (0-0.8); Eosinophils % (auto) 2.2 % (0.0-7.0); Hematocrit 41.9 % (41.0-53.0); Hemoglobin 14.2 g/dL (13.5-17.5); Lymphocytes # (auto) 0.8 10 ^3/uL (0.4-5.4); Lymphocytes % (auto) 22.6 % (10.0-50.0); Mean Corpuscular Hemoglobin 32.8 pg (28.0-32.0); Mean Corpuscular Volume 96.5 fL (80.0-100.0); Monocytes # (auto) 0.3 10 ^3/uL (0-1.3); Monocytes % (auto) 9.5 % (0.0-12.0); Neutrophils # (auto) 2.3 10 ^3/uL (1.6-8.6); Neutrophils % (auto) 65.3 % (37.0-80.0); Nucleated Red Blood Cells % 0.2 %; Platelet Count (auto) 181 10^3/uL (140-450); Red Blood Cells 4.34 10^6/uL (4.5-5.90); White Blood Cell 3.6 10^3/uL (4.4-10.8)
[2024-07-16 07:50] LABS: Potassium 3.8 mmol/L (3.5-5.1); Sodium 141 mmol/L (136-145)
[2024-07-16 07:51] LABS: Anion Gap 7 (5-15); Carbon Dioxide 25 mmol/L (20-31)
[2024-07-16 07:52] LABS: Calcium 9.6 mg/dL (8.7-10.4)
[2024-07-16 07:56] LABS: BUN/Creatinine Ratio 10.4 (10.0-20.0); Blood Urea Nitrogen 10 mg/dL (9-23)
[2024-07-16 07:58] LABS: Chloride 109 mmol/L (98-107); Glucose 107 mg/dL (74-106)
[2024-07-16] MEDS: cefTRIAXone 1GM/50ML D5W 50 ML IV SCH (09:44)
[2024-07-16] MEDS: diphenhdrAMINE HCL 25 MG CAP PO PRN (14:04)
--- NOTE | 2024-07-16 14:29 | DVHPN2 ---
Progress Note Date Seen: Jul 16, 2024 Medical Necessity Reason Pt with a Central, PICC or Fol: No Objective vital signs Vital Sign Date Time Temp Pulse Resp B/P (MAP) Pulse Ox O2 Delivery O2 Flow Rate FiO2 07/16/24 13:00 98.8 65 18 126/77 (93) 97 98.8 07/16/24 08:00 Room Air* 0 21 Total Intake and Output 07/15/24 07/15/24 07/16/24 15:00 23:00 07:00 Intake Total 180 ml 1630 ml 1625 ml Output Total 300 ml 1202 ml 500 ml Balance -120 ml 428 ml 1125 ml medications Current Medications Medications Dose Ordered Sig/Yesenia Route Start Time Stop Time Status Last Admin Dose Admin Temazepam 15 mg QHSP PRN PO 07/11/24 00:45 Ondansetron HCl 4 mg Q4HP PRN IV 07/11/24 00:45 07/16/24 11:01 4 MG Morphine Sulfate 2 mg Q30M PRN IV 07/11/24 00:45 Amiodarone HCl 200 mg BID PO 07/11/24 10:00 07/16/24 09:49 200 MG Labetalol HCl 200 mg BID PO 07/11/24 10:00 07/16/24 09:49 200 MG Pantoprazole Sodium 40 mg BID PO 07/11/24 10:00 07/16/24 09:48 40 MG Tamsulosin HCl 0.4 mg DAILY PO 07/11/24 10:00 07/16/24 09:45 0.4 MG Nitroglycerin 0.4 mg Q5MINP PRN SL 07/11/24 01:00 Hydromorphone HCl 0.5 mg Q4HP PRN IV 07/11/24 01:00 07/15/24 20:03 0.5 MG Albuterol 2.5 mg Q4HP PRN NEB 07/11/24 01:15 Cancel Sodium Chloride 1,000 ml @ 75 mls/hr [id number] IV 07/11/24 19:15 07/16/24 06:29 75 MLS/HR Enoxaparin Sodium 90 mg Q12HR SC 07/11/24 22:00 07/16/24 09:45 90 MG Polyethylene Glycol 17 gm DAILY PO 07/15/24 10:00 07/16/24 09:44 17 GM Ceftriaxone Sodium 50 ml @ 100 mls/hr DAILY@09 IV 07/16/24 09:00 07/16/24 09:44 100 MLS/HR Diphenhydramine HCl 25 mg Q8HP PRN PO 07/16/24 10:45 07/16/24 14:04 25 MG laboratory and microbiology Laboratory Tests 07/16/24 06:58 Test 07/16/24 06:58 Range/Units Serum Glucose 107 H 74-106 mg/dL Microbiology Date/Time Source Procedure Growth Status 07/14/24 21:23 Urine - Midstream Clean Catch Urine Culture - Preliminary Resulted 07/11/24 22:00 Nose MRSA Screen - Final Complete Problem List/Assessment/Plan Problem List/Assessment/Plan AFEBRILE VSS ABD SOFT LESS DISTENDED BM + RESOLVING SBO / ILEUS ADVANCE DIET KEVYN UTI EVAL ONGOING Plan discussed with: Patient, Other Dietary Evaluation Review Comments: 1) Cardiac diet 2) Continue current plan of care Expected Outcomes/Goals: Pt will meet 75% estimated needs Fu 5-7 days ANI MALCOLM MD Jul 16, 2024 14:29
--- NOTE | 2024-07-16 17:33 | DVHPN2 ---
Progress Note Date Seen: Jul 16, 2024 Medical Necessity Reason Pt with a Central, PICC or Fol: No Subjective Review of Systems: CVS:Normal, RESPIRATORY:Normal, :Normal, NEURO:Normal Objective vital signs Vital Sign Date Time Temp Pulse Resp B/P (MAP) Pulse Ox O2 Delivery O2 Flow Rate FiO2 07/16/24 13:00 98.8 65 18 126/77 (93) 97 98.8 07/16/24 08:00 Room Air* 0 21 Total Intake and Output 07/15/24 07/15/24 07/16/24 15:00 23:00 07:00 Intake Total 180 ml 1630 ml 1625 ml Output Total 300 ml 1202 ml 500 ml Balance -120 ml 428 ml 1125 ml medications Current Medications Medications Dose Ordered Sig/Yesenia Route Start Time Stop Time Status Last Admin Dose Admin Temazepam 15 mg QHSP PRN PO 07/11/24 00:45 Ondansetron HCl 4 mg Q4HP PRN IV 07/11/24 00:45 07/16/24 11:01 4 MG Morphine Sulfate 2 mg Q30M PRN IV 07/11/24 00:45 Amiodarone HCl 200 mg BID PO 07/11/24 10:00 07/16/24 09:49 200 MG Labetalol HCl 200 mg BID PO 07/11/24 10:00 07/16/24 09:49 200 MG Pantoprazole Sodium 40 mg BID PO 07/11/24 10:00 07/16/24 09:48 40 MG Tamsulosin HCl 0.4 mg DAILY PO 07/11/24 10:00 07/16/24 09:45 0.4 MG Nitroglycerin 0.4 mg Q5MINP PRN SL 07/11/24 01:00 Hydromorphone HCl 0.5 mg Q4HP PRN IV 07/11/24 01:00 07/15/24 20:03 0.5 MG Albuterol 2.5 mg Q4HP PRN NEB 07/11/24 01:15 Cancel Sodium Chloride 1,000 ml @ 75 mls/hr [id number] IV 07/11/24 19:15 07/16/24 06:29 75 MLS/HR Enoxaparin Sodium 90 mg Q12HR SC 07/11/24 22:00 07/16/24 09:45 90 MG Polyethylene Glycol 17 gm DAILY PO 07/15/24 10:00 07/16/24 09:44 17 GM Ceftriaxone Sodium 50 ml @ 100 mls/hr DAILY@09 IV 07/16/24 09:00 07/16/24 09:44 100 MLS/HR Diphenhydramine HCl 25 mg Q8HP PRN PO 07/16/24 10:45 07/16/24 14:04 25 MG Examination: GENERAL:Normal, LUNGS:Normal, CVS:Normal, ABDOMEN:Normal, SKIN:Normal, NEURO:Normal laboratory and microbiology Laboratory Tests 07/16/24 06:58 Test 07/16/24 06:58 Range/Units Serum Glucose 107 H 74-106 mg/dL Microbiology Date/Time Source Procedure Growth Status 07/14/24 21:23 Urine - Midstream Clean Catch Urine Culture - Preliminary Resulted 07/11/24 22:00 Nose MRSA Screen - Final Complete Problem List/Assessment/Plan Problem List/Assessment/Plan 1. SBO Surgical consult, NGT to LCS, monitor 2. GERD PPI, monitor 3. Anxiety Monitor 4. HLD Medication, monitoring 5. History of A-fib Monitor EKG, monitor 6. Acute cystitis with hematuria IV Rocephin Assessment/Plan Subjective Patient is awake and alert. Objective Patient had a small bowel series done. Patient is having bowel movements. Bowel obstruction was ruled out. NG tube was removed. Patient's diet was advanced to regular by GI, patient continues to have some abdominal pain we will continue to monitor.. CT imaging had no acute findings. Patient was seen by GI and has an outpatient appointment for colonoscopy. Patient did refuse inpatient colonoscopy. Patient was found to have acute cystitis was placed on IV Rocephin. Plan Advance diet as tolerated. Continue with IV Rocephin, possible discharge tomorrow Plan discussed with: Patient My Orders My Orders Orders - BLAIRE MCLEOD Procedure Category Date Status Time Diphenhdramine PHA 07/16/24 In Process Capsule (Benadryl 10:45 Dietary Evaluation Review Comments: 1) Cardiac diet 2) Continue current plan of care Expected Outcomes/Goals: Pt will meet 75% estimated needs Fu 5-7 days Date of Service: Jul 16, 2024 Billing Provider: VERONICA HAYWOOD MD Common Visit Codes: [id number] INP/OBS CARE (MOD) BLAIRE MCLEOD Jul 16, 2024 17:33
--- NOTE | 2024-07-16 21:04 | DVHPN2 ---
Progress Note - Dictate Date Seen: Jul 16, 2024 Medical Necessity Reason Pt with a Central, PICC or Fol: No Subjective No new complaints Patient is requesting Zofran prior to his meals Urine culture showed greater than three colony count suspicious for contamination vital signs Vital Sign Date Time Temp Pulse Resp B/P (MAP) Pulse Ox O2 Delivery O2 Flow Rate FiO2 07/16/24 17:00 98.5 69 14 123/77 (92) 96 98.5 07/16/24 08:00 Room Air* 0 21 Total Intake and Output 07/15/24 07/15/24 07/16/24 15:00 23:00 07:00 Intake Total 180 ml 1630 ml 1625 ml Output Total 300 ml 1202 ml 500 ml Balance -120 ml 428 ml 1125 ml medications Current Medications Medications Dose Ordered Sig/Yesenia Route Start Time Stop Time Status Last Admin Dose Admin Temazepam 15 mg QHSP PRN PO 07/11/24 00:45 Ondansetron HCl 4 mg Q4HP PRN IV 07/11/24 00:45 07/16/24 19:54 4 MG Morphine Sulfate 2 mg Q30M PRN IV 07/11/24 00:45 Amiodarone HCl 200 mg BID PO 07/11/24 10:00 07/16/24 09:49 200 MG Labetalol HCl 200 mg BID PO 07/11/24 10:00 07/16/24 09:49 200 MG Pantoprazole Sodium 40 mg BID PO 07/11/24 10:00 07/16/24 09:48 40 MG Tamsulosin HCl 0.4 mg DAILY PO 07/11/24 10:00 07/16/24 09:45 0.4 MG Nitroglycerin 0.4 mg Q5MINP PRN SL 07/11/24 01:00 Hydromorphone HCl 0.5 mg Q4HP PRN IV 07/11/24 01:00 07/15/24 20:03 0.5 MG Albuterol 2.5 mg Q4HP PRN NEB 07/11/24 01:15 Cancel Sodium Chloride 1,000 ml @ 75 mls/hr [id number] IV 07/11/24 19:15 07/16/24 19:54 75 MLS/HR Enoxaparin Sodium 90 mg Q12HR SC 07/11/24 22:00 07/16/24 09:45 90 MG Polyethylene Glycol 17 gm DAILY PO 07/15/24 10:00 07/16/24 09:44 17 GM Ceftriaxone Sodium 50 ml @ 100 mls/hr DAILY@09 IV 07/16/24 09:00 07/16/24 09:44 100 MLS/HR Diphenhydramine HCl 25 mg Q8HP PRN PO 07/16/24 10:45 07/16/24 14:04 25 MG objective General: NAD, AAOX3 Chest: lung andre clear to auscultation Heart: RRR, no murmur Abdomen: Mild-distended, mild lower abdominal tenderness to palpation, +BS laboratory and microbiology Laboratory Tests 07/16/24 06:58 Test 07/16/24 06:58 Range/Units Serum Glucose 107 H 74-106 mg/dL Problems(with codes): (1) UTI (urinary tract infection) (2) Nonspecific abdominal pain Prognosis Plan Patient more than likely had ileus related to his UTI or narcotic use Patient did not want to have a colonoscopy last week Continue medical management and advance diet as tolerated Patient is scheduled for outpatient colonoscopy next month patient will need cardiac re-evaluation and clearance prior to procedure Dietary Evaluation Review Comments: 1) Cardiac diet 2) Continue current plan of care Expected Outcomes/Goals: Pt will meet 75% estimated needs Fu 5-7 days Plan discussed with: Patient MO MALCOLM MD Jul 16, 2024 21:04
[2024-07-16] MEDS: TEMAZEPAM 15 MG CAP PO PRN (22:02)
[2024-07-17] VITALS (7 sets, daily range): BP systolic 100–144; BP diastolic 41–78; PULSE 59–78; RESP 14–19; TEMP 97.7–98.7; O2SAT 97–99
[2024-07-17] MEDS ORDERED: HYDROmorphone HCL 2 MG/ML VL/or syr IV PRN (15:30)
--- NOTE | 2024-07-17 15:36 | DVHPN2 ---
Progress Note - Dictate Date Seen: Jul 17, 2024 Medical Necessity Reason Pt with a Central, PICC or Fol: No vital signs Vital Sign Date Time Temp Pulse Resp B/P (MAP) Pulse Ox O2 Delivery O2 Flow Rate FiO2 07/17/24 13:00 98.4 66 17 123/41 (68) 99 98.4 07/17/24 08:00 Room Air* 0 21 Total Intake and Output 07/16/24 07/16/24 07/17/24 15:00 23:00 07:00 Intake Total 170 ml 960 ml 380 ml Output Total 1700 ml 420 ml Balance 170 ml -740 ml -40 ml medications Current Medications Medications Dose Ordered Sig/Yesenia Route Start Time Stop Time Status Last Admin Dose Admin Temazepam 15 mg QHSP PRN PO 07/11/24 00:45 07/16/24 22:02 15 MG Ondansetron HCl 4 mg Q4HP PRN IV 07/11/24 00:45 07/16/24 19:54 4 MG Morphine Sulfate 2 mg Q30M PRN IV 07/11/24 00:45 Amiodarone HCl 200 mg BID PO 07/11/24 10:00 07/16/24 21:57 200 MG Labetalol HCl 200 mg BID PO 07/11/24 10:00 07/16/24 21:58 200 MG Pantoprazole Sodium 40 mg BID PO 07/11/24 10:00 07/17/24 09:07 40 MG Tamsulosin HCl 0.4 mg DAILY PO 07/11/24 10:00 07/17/24 09:07 0.4 MG Nitroglycerin 0.4 mg Q5MINP PRN SL 07/11/24 01:00 Albuterol 2.5 mg Q4HP PRN NEB 07/11/24 01:15 Cancel Sodium Chloride 1,000 ml @ 75 mls/hr [id number] IV 07/11/24 19:15 07/17/24 09:49 75 MLS/HR Enoxaparin Sodium 90 mg Q12HR SC 07/11/24 22:00 07/17/24 09:12 90 MG Polyethylene Glycol 17 gm DAILY PO 07/15/24 10:00 07/17/24 09:08 17 GM Ceftriaxone Sodium 50 ml @ 100 mls/hr DAILY@09 IV 07/16/24 09:00 07/17/24 09:05 100 MLS/HR Diphenhydramine HCl 25 mg Q8HP PRN PO 07/16/24 10:45 07/16/24 14:04 25 MG Hydromorphone HCl 0.5 mg Q12HP PRN IV 07/17/24 15:30 UNV objective General Appearance: alert, no distress HEENT: EOMI, PERRLA, normal external inspect of ears, no icterus, no nasal drainage Neck: no carotid bruit, no jugular venous distention (JVD), no lymphadenopathy Chest: normal thorax Respiratory: clear to auscultation, normal air movement Cardiovascular: regular rate and rhythm, no diastolic murmur, no jugular venous distention (JVD), no rub, no systolic murmur Abdominal: soft, no hepatomegaly, no mass, no splenomegaly, no tenderness Genitourinary: grossly normal external Musculoskeletal: no joint tenderness, no swelling Extremities: normal pulses, no calf tenderness, no clubbing, no cyanosis, no edema Skin: no bruising, no jaundice, no rash Neurological: alert, No focal deficit laboratory and microbiology Laboratory Tests 07/16/24 06:58 Test 07/16/24 06:58 Range/Units Serum Glucose 107 H 74-106 mg/dL Problem List 1. SBO Surgical consult, NGT to LCS, monitor 2. GERD PPI, monitor 3. Anxiety Monitor 4. HLD Medication, monitoring 5. History of A-fib Monitor EKG, monitor Assessment/Plan Subjective: Patient is awake and alert. Objective: Patient was supposed to be cleared for discharge today; however, he has been complaining of chest pain 01/12. Troponin levels are negative. EKG is nonrevealing. Patient has multiple admissions for abdominal and chest pain. No imaging has been found to support abdominal pain. Plan: Continue current treatment. Follow-up with GI outpatient for colonoscopy. DC plan for tomorrow morning. Dietary Evaluation Review Comments: 1) Cardiac diet 2) Continue current plan of care Expected Outcomes/Goals: Pt will meet 75% estimated needs Fu 5-7 days Plan discussed with: Patient, Other MCKENNA ROTH NP Jul 17, 2024 15:36
--- NOTE | 2024-07-17 22:13 | DVHPN2 ---
Progress Note - Dictate Date Seen: Jul 17, 2024 Medical Necessity Reason Pt with a Central, PICC or Fol: No Subjective Patient was complaining of chest pain today, troponins were negative Recent endoscopy in May was essentially negative Patient is requesting Zofran prior to his meals Renal function and creatinine are improving Urine culture showed greater than three colony count suspicious for contamination vital signs Vital Sign Date Time Temp Pulse Resp B/P (MAP) Pulse Ox O2 Delivery O2 Flow Rate FiO2 07/17/24 21:00 98.7 69 18 138/76 (96) 98 98.7 07/17/24 08:00 Room Air* 0 21 Total Intake and Output 07/16/24 07/16/24 07/17/24 15:00 23:00 07:00 Intake Total 170 ml 960 ml 380 ml Output Total 1700 ml 420 ml Balance 170 ml -740 ml -40 ml medications Current Medications Medications Dose Ordered Sig/Yesenia Route Start Time Stop Time Status Last Admin Dose Admin Temazepam 15 mg QHSP PRN PO 07/11/24 00:45 07/16/24 22:02 15 MG Ondansetron HCl 4 mg Q4HP PRN IV 07/11/24 00:45 07/16/24 19:54 4 MG Morphine Sulfate 2 mg Q30M PRN IV 07/11/24 00:45 Amiodarone HCl 200 mg BID PO 07/11/24 10:00 07/16/24 21:57 200 MG Labetalol HCl 200 mg BID PO 07/11/24 10:00 07/16/24 21:58 200 MG Pantoprazole Sodium 40 mg BID PO 07/11/24 10:00 07/17/24 09:07 40 MG Tamsulosin HCl 0.4 mg DAILY PO 07/11/24 10:00 07/17/24 09:07 0.4 MG Nitroglycerin 0.4 mg Q5MINP PRN SL 07/11/24 01:00 Albuterol 2.5 mg Q4HP PRN NEB 07/11/24 01:15 Cancel Sodium Chloride 1,000 ml @ 75 mls/hr [id number] IV 07/11/24 19:15 07/17/24 09:49 75 MLS/HR Enoxaparin Sodium 90 mg Q12HR SC 07/11/24 22:00 07/17/24 09:12 90 MG Polyethylene Glycol 17 gm DAILY PO 07/15/24 10:00 07/17/24 09:08 17 GM Ceftriaxone Sodium 50 ml @ 100 mls/hr DAILY@09 IV 07/16/24 09:00 07/17/24 09:05 100 MLS/HR Diphenhydramine HCl 25 mg Q8HP PRN PO 07/16/24 10:45 07/17/24 18:14 25 MG Hydromorphone HCl 0.5 mg Q12HP PRN IV 07/17/24 15:30 objective General: NAD, AAOX3 Chest: lung andre clear to auscultation Heart: RRR, no murmur Abdomen: Mild-distended, mild lower abdominal tenderness to palpation, +BS laboratory and microbiology Laboratory Tests 07/16/24 06:58 Test 07/16/24 06:58 Range/Units Serum Glucose 107 H 74-106 mg/dL Problems(with codes): (1) Constipation (2) UTI (urinary tract infection) (3) Small bowel obstruction (4) Intractable abdominal pain (5) Gastritis Prognosis Plan Continue supportive care Patient states he has been cleared by Cardiology Dr Scott However I believe he has underlying cardiomyopathy with a low ejection fraction His chronic abdominal pain could be related to possible mesenteric ischemia Patient encouraged to keep outpatient appointment for his colonoscopy Dietary Evaluation Review Comments: 1) Cardiac diet 2) Continue current plan of care Expected Outcomes/Goals: Pt will meet 75% estimated needs Fu 5-7 days Plan discussed with: Patient MO MALCOLM MD Jul 17, 2024 22:13
[2024-07-18 01:00] VITALS: BP 126/76; PULSE 67; RESP 19; TEMP 98.9; O2SAT 97
[2024-07-18 05:00] VITALS: BP 108/57; PULSE 70; RESP 16; TEMP 98.7; O2SAT 95
--- NOTE | 2024-07-18 07:52 | ECG ---
[facility] Test Date: 2024-07-17 Test Time: 12:08:01 Pat Name: LUIS MIGUEL JOSHI Department: Respiratoy Room: 0246 B Gender: M Xray Tech: DEEP : 1975 Requested By: MCKENNA ROTH Order Number: [id number] Reading MD: James Moses Measurements Intervals [place] Rate: 64 P: 41 MA: 172 QRS: -5 QRSD: 90 T: 28 QT: 415 QTc: 428 Interpretive Statements Sinus rhythm Electronically Signed On 07-19-2024 20:33:41 PDT by James Moses Please click the below link to view image of tracing.
[2024-07-18 08:00] VITALS: PULSE 64; RESP 17; O2SAT 96
[2024-07-18 09:00] VITALS: BP 135/60; PULSE 59; RESP 17; TEMP 97.8; O2SAT 98
--- NOTE | 2024-07-18 10:34 | DVHDS2 ---
Discharge Summary Date of Admission Jul 11, 2024 at 00:50 Date of Discharge: Jul 18, 2024 Labs/Diagnostic Data: Laboratory Results Test 07/17/24 14:30 07/16/24 06:58 07/13/24 08:06 07/10/24 20:36 Troponin I High Sensitivity < 3 ng/L (</=54) White Blood Count 3.6 10^3/uL (4.4-10.8) Red Blood Count 4.34 10^6/uL (4.5-5.90) Hemoglobin 14.2 g/dL (13.5-17.5) Hematocrit 41.9 % (41.0-53.0) Mean Corpuscular Volume 96.5 fL (80.0-100.0) Mean Corpuscular Hemoglobin 32.8 pg (28.0-32.0) Mean Corpuscular Hemoglobin Concent 34.0 g/dL (32.0-36.0) Red Cell Distribution Width 15.0 % (11.8-14.3) Platelet Count 181 10^3/uL (140-450) Mean Platelet Volume 7.3 fL (6.9-10.8) Neutrophils (%) (Auto) 65.3 % (37.0-80.0) Lymphocytes (%) (Auto) 22.6 % (10.0-50.0) Monocytes (%) (Auto) 9.5 % (0.0-12.0) Eosinophils (%) (Auto) 2.2 % (0.0-7.0) Basophils (%) (Auto) 0.4 % (0.0-2.0) Neutrophils # (Auto) 2.3 10 ^3/uL (1.6-8.6) Lymphocytes # (Auto) 0.8 10 ^3/uL (0.4-5.4) Monocytes # (Auto) 0.3 10 ^3/uL (0-1.3) Eosinophils # (Auto) 0.1 10 ^3/uL (0-0.8) Basophils # (Auto) 0 10 ^3/uL (0-0.2) Nucleated Red Blood Cells 0.2 % Sodium Level 141 mmol/L (136-145) Potassium Level 3.8 mmol/L (3.5-5.1) Chloride Level 109 mmol/L (98-107) Carbon Dioxide Level 25 mmol/L (20-31) Anion Gap 7 (5-15) Blood Urea Nitrogen 10 mg/dL (9-23) Creatinine 0.96 mg/dL (0.700-1.30) Glomerular Filtration Rate Calc 97 mL/min (>90) BUN/Creatinine Ratio 10.4 (10.0-20.0) Serum Glucose 107 mg/dL (74-106) Calcium Level 9.6 mg/dL (8.7-10.4) Urine Color Colorless (Yellow) Urine Clarity Turbid (Clear) Urine pH 6.0 (5.0-9.0) Urine Specific [place] 1.011 (1.001-1.035) Urine Protein 2+ (Negative) Urine Ketones Negative (Negative) Urine Blood 3+ /uL (Negative) Urine Nitrite Negative (Negative) Urine Bilirubin Negative (Negative) Urine Urobilinogen Normal mg/dL (Negative) Urine Leukocyte Esterase 3+ /uL (Negative) Urine RBC 83 /hpf (0 - 3) Urine WBC Clumps Present /hpf (None Seen) Urine Microscopic WBC 149 /HPF (0-3) Urine Squamous Epithelial Cells None seen /hpf (<5) Urine Bacteria Few /hpf (None Seen) Urine Yeast (Budding) Many /hpf (None Seen) Urine Glucose Normal mg/dL (Normal) Total Bilirubin 0.5 mg/dL (0.2-1.0) Aspartate Amino Transferase (AST) 35 U/L (13-40) Alanine Aminotransferase (ALT) 49 U/L (7-40) Alkaline Phosphatase 80 U/L (46-116) Total Protein 8.0 g/dL (5.7-8.2) Albumin 5.3 g/dL (3.2-4.8) Lipase 42 U/L (12-53) Other Laboratory Tests 07/16/24 06:58 Brief Hx & Hospital Course: Patient is a 48-year-old male with a history of A-fib, hypertension, HLD, GERD, arthritis, anxiety, and anemia who presents today to the emergency department with abdominal pain. Patient was recently seen at [facility] but states that he is still experiencing symptoms. Patient reports that pain is radiating to his sternum. Patient denies any nausea vomiting or diarrhea. Patient denies any shortness of breath. While in the emergency department the patient was evaluated by the provider, As per provider: Labs, vital signs, and imagining monitored. Patient was admitted on 07/11/2024 for intractable abdominal pain. Patient has been at [facility] and [facility] and appears to not be going home and is bouncing from hospital to hospital. Patient has had multiple endoscopies in the past. Patient was seen by GI and he had a recent upper endoscopy which showed mild gastritis. Patient has a scheduled colonoscopy outpatient in 1 month and he had a prior colonoscopy Several months ago which had no acute findings. Patient was found to have possible ileus versus small bowel obstruction. Patient was seen by general surgery. Small bowel series was done. Patient had multiple bowel movements. I did discuss plan of care with patient at length. Patient goes from hospital to hospital requesting IV Dilaudid which most likely is contributing to his constipation. Patient did have a mild UTI. He was treated with IV antibiotics. No antibiotics indicated for discharge. He was instructed to continue all his current medications. Patient will follow-up with her PCP in 1 week and he will follow-up with GI outpatient for scheduled colonoscopy. The patient received proper medical treatment and medications. Vital signs, Imaging and Laboratory Work was monitored daily. All consults recommendations were followed as provided. There were no complaints or new complaints upon discharge, all questions and concerns were answered. Patient was advised to return to the ER or call 911 if any headaches, dizziness, shortness of breath, chest pain, bleeding, fevers, or worsening of medical condition. Patient/Family was counseled about treatment plan, medications, possible side effects, patient verbalized understanding. All questions were answered to the best of my ability. The patient symptoms improved and they are okay to be DC. Condition at Discharge: Stable Final Diagnosis/Problems List Abdominal pain due to severe constipation, most likely from chronic opioid use Ileus and small bowel obstruction ruled out Scheduled for outpatient colonoscopy Chest pain- not cardiac in nature ACS ruled out-continue current medications SBO GERD Anxiety HLD History of A-fib Discharge Disposition: Home Discharge Instruct/Medications Diet: Cardiac 2g Na,low cholest Activity: No Restrictions, As Tolerated Follow Up/Referral: pcp 1 week Medications: continue home meds Discharge Statement: "Patient was advised to return to the ER or call 911 if any headaches, dizziness, shortness of breath, chest pain, abdominal pain, bleeding, fevers, or worsening of medical condition. Patient was counseled about treatment plan, medications, possible side effects, patientverbalized understanding. All questions were answered to the best of my ability. This discharge took greater then 30 minutes in planning, reviewing documentation, counseling the patient, and discussing with other team members." ASSESSMENT ASSESSMENT Assessment Abdominal pain due to severe constipation, most likely from chronic opioid use Ileus and small bowel obstruction ruled out Scheduled for outpatient colonoscopy Chest pain- not cardiac in nature ACS ruled out-continue current medications MCKENNA ROTH NP Jul 18, 2024 10:34
--- NOTE | 2024-07-18 10:39 | DVHINCON2 ---
Date of service: Jul 18, 2024 History of Present Illness HPI Patient is a 48-year-old gentleman who presented to the hospital originally on July 10 2024 for abdominal pain and distention. He was kept with diagnosis of possible small bowel obstruction which was ruled out later. While in hospital the patient had some chest discomfort and Cardiology was called. Patient is known to our practice from before. Does have history of paroxysmal AFib for wh ich is on Eliquis and amiodarone. There was no episode of atrial fibrillation during this admission. Home Meds Active Scripts Albuterol Sulfate (Albuterol Sulfate Hfa) 108 Mcg/Act Aer, 108 MCG IN TID PRN, #1 AER Prov:BENIGNO SANDS WINDER TENDER 06/14/24 Benzonatate (Benzonatate) 100 Mg Cap, 1-2 CAP PO Q4HR PRN, #60 CAP Prov:BENIGNO SANDSP 06/14/24 Gabapentin (Gabapentin) 300 Mg Cap, 1 CAP PO TID, #90 CAP 5 Refills Prov:MCKENNA ROTH SURVEY RODMAN 05/24/24 Amiodarone HCl (Amiodarone HCl) 200 Mg Tab, 200 MG PO BID for 30 Days, #60 TAB Prov:GONZALEZMCKENNA M SURVEY RODMAN 05/24/24 Sucralfate (Sucralfate) 1 Gm Tab, 1 TAB PO QID for 30 Days, #120 TAB Prov:GONZALEZMCKENNA M SURVEY RODMAN 11/15/23 Pantoprazole Sodium Sesquihydr (Pantoprazole Sodium) 40 Mg Tab, 1 TAB PO BID for 30 Days, #60 TAB Prov:MCKENNA ROTH SURVEY RODMAN 11/15/23 Reported Medications Evolocumab (Repatha Sureclick) 140 Mg/Ml Inj, SC 1 PRE-FILLED PEN EVERY 2 WEEKS 07/11/24 Dronedarone Hydrochloride (Multaq) 400 Mg Tab, 1 TAB PO BID 07/11/24 Pravastatin Sodium (PRAVACHOL TABLET) 20 Mg Tb, 40 MG PO DAILY 07/11/24 Metoprolol Tartrate (Lopressor) 25 Mg Tb, 50 TAB PO BID 07/11/24 Ketoconazole (Ketoconazole) 2 % Cre, 1 APPLIC TOP BID, #60 GRAMS 1 Refill 05/18/24 Clotrimazole (Clotrimazole) 1 % Cre, 1 APPLIC TOP Q12HR for 30 Days, APPLIC 05/18/24 Amlodipine Besylate (Amlodipine Besylate) 5 Mg Tab, 10 MG PO DAILY for 30 Days, MG 05/18/24 Atogepant (Qulipta) 60 Mg Tab, 60 MG PO DAILY, TAB 05/18/24 Labetalol HCl (Labetalol Hydrochloride) 200 Mg Tab, 1 TAB PO BID 03/25/24 Tamsulosin HCl (Tamsulosin Hydrochloride) 0.4 Mg Cap, 0.4 MG PO DAILY, CAP 03/25/24 Beclomethasone Dipropionate (Qvar Redihaler) 80 Mcg/Act Aer, 2 PUFF IN BID, AER 03/25/24 Docusate Sodium (Colace) 100 Mg Cap, 100 MG PO BID PRN for FOR CONSTIPATION, CAP 03/25/24 Albuterol Sulfate (Albuterol Sulfate Hfa) 108 Mcg/Act Aer, 1 PUFF INH Q4HPRN PRN for SHORTNESS OF BREATH 03/25/24 Hydroxyzine Hcl (Hydroxyzine Hcl) 25 Mg Tab, 20 MG PO DAILY PRN for ANXIETY, TAB 03/25/24 Albuterol Sulfate (VENTOLIN MDI) 90 Mcg Ih, 90 MCG IN Q4HP, INH 10/12/23 Apixaban Base (ELIQUIS) 5 Mg Tab, 5 MG PO BID, TAB 10/12/23 Dicyclomine Hcl (Dicyclomine Hcl) 20 Mg Tab, 10 MG PO BID PRN for ABD MUSCLE SPASM, MG 10/12/23 Past Medical History Others Past medical history includes learning disability, hypertension, paroxysmal AFib (on Eliquis as outpatient), asthma, osteoarthritis, anxiety/depression, BPH, hyperlipidemia (on Repatha as outpatient), migraines, history of vitamin-D deficiency and magnesium deficiency, CKD, GERD, short episodes of SVT and mild m itral valve prolapse. Patient Family History: Diabetes mellitus G8 FATHER, Smoker: No Hx (Negative) Review of Systems All Other Systems 14 point review of system was performed. Relevant findings as per above and as per HPI. Otherwise negative H&P Exam Vital Signs Vital Signs Date Time Temp Pulse Resp B/P (MAP) Pulse Ox O2 Delivery O2 Flow Rate FiO2 07/18/24 09:55 59 135/60 07/18/24 09:00 97.8 17 98 97.8 07/17/24 20:00 Room Air* 0 21 General Appeara: Well developed, Well nourished Head Exam: Normal inspection Eye Exam: bilateral eye PERRL Nasal Exam: Normal inspection Mouth: Normal Inspection Pulmonary/Respiratory: Lungs clear Cardiovascular/Chest: Regular rate Abdominal Exam: Normal bowel sounds, Soft Neuro/Mental St: Alert, Oriented Appearance: Appropriate appearance Eye contact/ Speech: Cooperative Labs/Xrays Labs Test 07/17/24 14:30 07/16/24 06:58 07/13/24 08:06 07/10/24 20:36 Range/Units Troponin I High Sensitivity < 3 L </=54 ng/L White Blood Count 3.6 L 4.4-10.8 10^3/uL Red Blood Count 4.34 L 4.5-5.90 10^6/uL Hemoglobin 14.2 13.5-17.5 g/dL Hematocrit 41.9 41.0-53.0 % Mean Corpuscular Volume 96.5 80.0-100.0 fL Mean Corpuscular Hemoglobin 32.8 H 28.0-32.0 pg Mean Corpuscular Hemoglobin Concent 34.0 32.0-36.0 g/dL Red Cell Distribution Width 15.0 H 11.8-14.3 % Platelet Count 181 140-450 10^3/uL Mean Platelet Volume 7.3 6.9-10.8 fL Neutrophils (%) (Auto) 65.3 37.0-80.0 % Lymphocytes (%) (Auto) 22.6 10.0-50.0 % Monocytes (%) (Auto) 9.5 0.0-12.0 % Eosinophils (%) (Auto) 2.2 0.0-7.0 % Basophils (%) (Auto) 0.4 0.0-2.0 % Neutrophils # (Auto) 2.3 1.6-8.6 10 ^3/uL Lymphocytes # (Auto) 0.8 0.4-5.4 10 ^3/uL Monocytes # (Auto) 0.3 0-1.3 10 ^3/uL Eosinophils # (Auto) 0.1 0-0.8 10 ^3/uL Basophils # (Auto) 0 0-0.2 10 ^3/uL Nucleated Red Blood Cells 0.2 % Sodium Level 141 136-145 mmol/L Potassium Level 3.8 3.5-5.1 mmol/L Chloride Level 109 H 98-107 mmol/L Carbon Dioxide Level 25 20-31 mmol/L Anion Gap 7 5-15 Blood Urea Nitrogen 10 9-23 mg/dL Creatinine 0.96 0.700-1.30 mg/dL Glomerular Filtration Rate Calc 97 >90 mL/min BUN/Creatinine Ratio 10.4 10.0-20.0 Serum Glucose 107 H 74-106 mg/dL Calcium Level 9.6 8.7-10.4 mg/dL Urine Color Colorless Yellow Urine Clarity Turbid H Clear Urine pH 6.0 5.0-9.0 Urine Specific [place] 1.011 1.001-1.035 Urine Protein 2+ H Negative Urine Ketones Negative Negative Urine Blood 3+ H Negative /uL Urine Nitrite Negative Negative Urine Bilirubin Negative Negative Urine Urobilinogen Normal Negative mg/dL Urine Leukocyte Esterase 3+ Negative /uL Urine RBC 83 0 - 3 /hpf Urine WBC Clumps Present None Seen /hpf Urine Microscopic WBC 149 H 0-3 /HPF Urine Squamous Epithelial Cells None seen <5 /hpf Urine Bacteria Few H None Seen /hpf Urine Yeast (Budding) Many None Seen /hpf Urine Glucose Normal Normal mg/dL Total Bilirubin 0.5 0.2-1.0 mg/dL Aspartate Amino Transferase (AST) 35 13-40 U/L Alanine Aminotransferase (ALT) 49 H 7-40 U/L Alkaline Phosphatase 80 46-116 U/L Total Protein 8.0 5.7-8.2 g/dL Albumin 5.3 H 3.2-4.8 g/dL Lipase 42 12-53 U/L Microbiology Date/Time Source Procedure Growth Status 07/14/24 21:23 Urine - Midstream Clean Catch Urine Culture - Final Complete 07/11/24 22:00 Nose MRSA Screen - Final Complete Assessment/Plan Plan Patient is a 48-year-old gentleman who presented to the hospital originally on July 10 2024 for abdominal pain and distention. He was kept with diagnosis of possible small bowel obstruction which was ruled out later. While in hospital the patient had some chest discomfort and Cardiology was called. Patient is known to our practice from before. Does have history of paroxysmal AFib for which is on Eliquis and amiodarone. There was no episode of atrial fibrillation during this admission. He has had negative nuclear stress test around a year ago. Not in acute distress. No carotid bruit. No JVD. Mucosa is pink and wet. Lungs: Clear to auscultation. Cardiac: Regular, no thrill/gallop, abdomen is soft. There is no gross mass/hepatomegaly. Mild generalized abdominal tenderness is elicited. There is no rebound tenderness. Extremities reveal 1+ edema bilaterally. Dorsalis pedis is 2+ bilateral. Past medical history includes learning disability, hypertension, paroxysmal AFib (on Eliquis as outpatient), asthma, osteoarthritis, anxiety/depression, BPH, hyperlipidemia (on Repatha as outpatient), migraines, history of vitamin-D deficiency and magnesium deficiency, CKD, GERD, short episodes of SVT and mild mitral valve prolapse. He is allergic to statins and is on Repatha as outpatient. Nuclear stress test of February 2023 did not reveal ischemia and reported ejection fraction of 77%. Echocardiogram of December 24, 2022 (performed in the office) revealed ejection fraction of 65-70%, mild MR/TR/PI and mild mitral valve prolapse Echocardiogram of October 13, 2023 had revealed ejection fraction of 64%, trace MR/TR/PI Echocardiogram of March 25, 2024 revealed ejection fraction of 65-70 percent, there was no wall motion abnormality. There was trace MR/TR/PI. Creatinine: 1.56-0.96 Potassium: 4.2-3.8 Troponin (high sensitive): <3 - <3 Chest x-ray revealed: IMPRESSION: Enteric tube tip projects over the gastroesophageal junction. Recommend advancement. Repeat chest x-ray revealed: IMPRESSION: Enteric tube in appropriate position. Repeat chest x-ray revealed: IMPRESSION: Lung volumes. Enteric tube in appropriate position. No acute cardiopulmonary disease. KUB reported: IMPRESSION: Nonobstructive bowel gas pattern. Enteric tube tip projects over the distal stomach. Small-bowel x-ray revealed: Normal small bowel series. Abdomen and pelvis CT scan revealed: IMPRESSION: 1. Mild fluid distention of the small bowel which are predominantly normal caliber although there is a caliber change in the distal right lower quadrant small bowel terminal ileum. This could reflect ileus associated with enteritis or partial small bowel obstruction. 2. No free air or fluid collection. Normal appendix. Telemetry revealed sinus rhythm Patient is a 48-year-old gentleman who presented with intractable abdominal pain/constipation. Baseline history includes atrial fibrillation/hyperlipidemia/hypertension/anxiety and depression. Acute coronary syndrome is not considered. Intractable abdominal pain Paroxysmal AFib Hypertension Depression BPH Cardiac suggestion for management: Management in telemetry. Follow-up electrolytes and kidney function tests and correct abnormalities. Keep potassium above 4 and magnesium above 2 Long-term continuation of full anticoagulation (Eliquis) is advised. Cardiac-kovacs, can be followed as outpatient Evaluation and management of intractable abdominal pain/constipation as per primary team/GI. Further evaluation and management depends on the above and clinical course A total of 75 minutes was spent reviewing the patient record, examining the patient, making a diagnostic and therapeutic plan, discussing this plan with medical personnel, following up on diagnostic studies and following the patient for clinical stability excluding any and all procedures. At least 50% of this time was spent in direct, [id number] contact. Thank you for allowing me to participate in this patient's care. Further recommendations will depend on patient's clinical course. Please do not hesitate to contact me if you have any questions or concerns. This medical document was created using electronic medical record system with [employer] computerized dictation system. Although this document has been carefully reviewed, there may still be some phonetic and typographical errors. These areas are purely typographical due to the imperfection of the software programs, and do not reflect any compromise in the patient's medical care. Plan discussed with: Patient, Other (nurse) APOORVA JON MD Jul 18, 2024 10:39
[2024-07-18 11:42] VITALS: BP 135/60; PULSE 64; RESP 17; TEMP 98; O2SAT 98
[2024-07-18] MEDS: INFLUENZA TRIVALENT 2024-2025 0.5 ML INJ IM ONE (13:45)
[2024-07-18] MEDS: PNEUMOCOCCAL VACC POLYS 25 MCG/0.5 ML VIAL IM ONE (13:45)
--- NOTE | 2024-07-18 15:25 | ECG ---
[facility] Test Date: 2024-07-17 Test Time: 12:09:00 Pat Name: LUIS MIGUEL JOSHI Department: Respiratoy Room: 0246 B Gender: M Household Coordinator: DEEP : 1975 Requested By: MCKENNA ROTH Order Number: [id number] Reading MD: James Moses Measurements Intervals [place] Rate: 68 P: 54 VT: 172 QRS: -10 QRSD: 114 T: 2 QT: 419 QTc: 446 Interpretive Statements Sinus rhythm Incomplete left bundle branch block Low voltage, extremity leads Electronically Signed On 07-19-2024 20:33:44 PDT by James Moses Please click the below link to view image of tracing.
--- NOTE | 2024-07-18 20:10 | DVHPN2 ---
Progress Note - Dictate Date Seen: Jul 18, 2024 (Time of visit 1 pm) Medical Necessity Reason Pt with a Central, PICC or Fol: No Subjective Patient was complaining of chest pain today, troponins were negative Recent endoscopy in May was essentially negative Patient is requesting Zofran prior to his meals Renal function and creatinine are improving Urine culture showed greater than three colony count suspicious for contamination vital signs Vital Sign Date Time Temp Pulse Resp B/P (MAP) Pulse Ox O2 Delivery O2 Flow Rate FiO2 07/18/24 11:42 98.0 64 17 98 07/18/24 10:55 128/72 07/18/24 08:00 Room Air* 0 21 Total Intake and Output 07/17/24 07/17/24 07/18/24 15:00 23:00 07:00 Intake Total 50 ml 450 ml 200 ml Output Total 900 ml 200 ml Balance 50 ml -450 ml 0 ml medications Current Medications Medications Dose Ordered Sig/Yesenia Route Start Time Stop Time Status Last Admin Dose Admin Albuterol 2.5 mg Q4HP PRN NEB 07/11/24 01:15 Cancel objective General: NAD, AAOX3 Chest: lung andre clear to auscultation Heart: RRR, no murmur Abdomen: Mild-distended, mild lower abdominal tenderness to palpation, +BS laboratory and microbiology Laboratory Tests 07/16/24 06:58 Test 07/16/24 06:58 Range/Units Serum Glucose 107 H 74-106 mg/dL Problems(with codes): (1) Intractable abdominal pain (2) Constipation (3) UTI (urinary tract infection) (4) Nonspecific abdominal pain (5) Small bowel obstruction Prognosis Plan Continue supportive care Patient states he has been cleared by Cardiology Dr Scott However I believe he has underlying cardiomyopathy with a low ejection fraction His chronic abdominal pain could be related to possible mesenteric ischemia Patient encouraged to keep outpatient appointment for his colonoscopy Discharge planning is in progress Dietary Evaluation Review Comments: 1) Cardiac diet 2) Continue current plan of care Expected Outcomes/Goals: Pt will meet 75% estimated needs Fu 5-7 days Plan discussed with: Patient MO MALCOLM MD Jul 18, 2024 20:10
== END 2024-07-18 13:45 | disposition home or self-care (01) | DRG 391 ==
LOC: ER 18:46 → OVERFLOW 07-11 00:50 → TELE-EAST 07-11 21:50 → EAST 07-16 04:54
PROVIDERS: ADMIT Nurse Practitioner; ATTEND Nurse Practitioner
PROC: 0D9670Z Drainage of Stomach with Drainage Device, Via Natural or Artificial Opening (ICD-10-PCS; principal; 2024-07-11)
DX: K59.03 Drug induced constipation (principal); J96.01 Acute respiratory failure with hypoxia; N30.01 Acute cystitis with hematuria; K21.9 Gastro-esophageal reflux disease without esophagitis; E78.5 Hyperlipidemia, unspecified; N40.0 Benign prostatic hyperplasia without lower urinary tract symptoms; F41.9 Anxiety disorder, unspecified; I48.0 Paroxysmal atrial fibrillation; T40.2X5A Adverse effect of other opioids, initial encounter; I34.1 Nonrheumatic mitral (valve) prolapse; E11.22 Type 2 diabetes mellitus with diabetic chronic kidney disease; I12.9 Hypertensive chronic kidney disease with stage 1 through stage 4 chronic kidney disease, or unspecified chronic kidney disease; N18.9 Chronic kidney disease, unspecified; E55.9 Vitamin D deficiency, unspecified; F32.A Depression, unspecified; G43.909 Migraine, unspecified, not intractable, without status migrainosus; D64.9 Anemia, unspecified; Z88.6 Allergy status to analgesic agent; Z88.1 Allergy status to other antibiotic agents; Z88.5 Allergy status to narcotic agent; Z88.0 Allergy status to penicillin; Z88.8 Allergy status to other drugs, medicaments and biological substances; Z91.018 Allergy to other foods; Z79.899 Other long term (current) drug therapy; Z79.01 Long term (current) use of anticoagulants; Z83.3 Family history of diabetes mellitus; Z87.891 Personal history of nicotine dependence; Z79.891 Long term (current) use of opiate analgesic; Y92.89 Other specified places as the place of occurrence of the external cause
CPT/HCPCS: 36415; 71045; 74018; 74176; 74250; 80048; 80053; 81001; 83690; 84484; 85025; 87081; 87086; 93005; 97110; 97116; 97163; 97530; G0378; J2405

== ENCOUNTER 2024-08-01 17:51 | Emergency (ER) | payer OTHER ==
[~2024-08-01] VITALS: Ht 175.3 cm; Wt 88.4 kg
[~2024-08-01 17:51] MED LIST changes: -ALBU108A5 IN; -ALBUAER3 IN; -AMLO1TAB22 PO; -AZIT-43 PO; -BENZ100C97 PO; -CHOL20007 PO; -CYCL-839 PO; -DIPH-751 PO; -EVOL140I SC; +EVOL140I2 SC; -HYDR25TA5 PO; -MAGN400T6 PO; -METO-281 PO; +PRAV20TA3 PO; -PRED20TA2 PO; -PROM25TA10 PO; -TRIA0.1P2 TOP
--- NOTE | 2024-08-01 18:57 | ED.PDOC ---
GI ASSESSMENT HPI Comments 49-year-old male with a history of AFib, hypertension, hyperlipidemia, GERD, arthritis, anxiety and anemia brought in by self complaining of lower abdominal pain radiating to the left lower quadrant that started this morning. He also reports loose stools and nausea. He denies fever, vomiting or urinary symptoms. He does report chills. Patient was admitted here 07/08/24 with a possible bowel obstruction. Patient underwent GI evaluation, and it was determined that patient's symptoms were due to constipation from opioid analgesics. Chief Complaint: Abdominal Pain Time Seen by MD: 18:54 Primary Care Provider: JORDYN Reviewed Notes: Nurses Notes, Medications, Allergies Allergies: Coded Allergies: Acetaminophen (Verified Allergy, Unknown, 03/02/23) Amoxicillin (Verified Allergy, Unknown, 03/02/23) Codeine (Verified Allergy, Unknown, 03/02/23) Hydrocodone (Verified Allergy, Unknown, 03/24/24) Ibuprofen (Verified Allergy, Unknown, 03/02/23) Penicillins (Verified Allergy, Unknown, 03/02/23) Statins (Verified Allergy, Unknown, 03/02/23) Tramadol (Verified Allergy, Unknown, 03/02/23) Uncoded Allergies: WALNUTS (Allergy, Unknown, 03/02/23) Home Meds Active Scripts Ondansetron Odt 4MG Tab (ZOFRAN PO) 4 Mg Tb, 4 MG PO TID PRN, #30 TAB prn nausea or vomiting ODT TAB-DISSOLVE IN MOUTH, THEN SWALLOW Prov:YOSHI BONNER MD 08/01/24 Dicyclomine Hcl (BENTYL CAPSULE) 10 Mg Cp, 2 CAP PO Q6HP PRN, #90 CAP 11 Refills prn abdominal pain Prov:YOSHI BONNER MD 08/01/24 Gabapentin (Gabapentin) 300 Mg Cap, 1 CAP PO TID, #90 CAP 5 Refills Prov:MCKENNA ROTH NP 05/24/24 Amiodarone HCl (Amiodarone HCl) 200 Mg Tab, 200 MG PO BID for 30 Days, #60 TAB Prov:MCKENNA ROTH NP 05/24/24 Sucralfate (Sucralfate) 1 Gm Tab, 1 TAB PO QID for 30 Days, #120 TAB Prov:MCKENNA ROTH NP 11/15/23 Pantoprazole Sodium Sesquihydr (Pantoprazole Sodium) 40 Mg Tab, 1 TAB PO BID for 30 Days, #60 TAB Prov:MCKENNA ROTH [employer] 11/15/23 Reported Medications Evolocumab (Repatha Sureclick) 140 Mg/Ml Inj, SC 1 PRE-FILLED PEN EVERY 2 WEEKS 07/11/24 Pravastatin Sodium (PRAVACHOL TABLET) 20 Mg Tb, 40 MG PO DAILY 07/11/24 Ketoconazole (Ketoconazole) 2 % Cre, 1 APPLIC TOP BID, #60 GRAMS 1 Refill 05/18/24 Clotrimazole (Clotrimazole) 1 % Cre, 1 APPLIC TOP Q12HR for 30 Days, APPLIC 05/18/24 Atogepant (Qulipta) 60 Mg Tab, 60 MG PO DAILY, TAB 05/18/24 Labetalol HCl (Labetalol Hydrochloride) 200 Mg Tab, 1 TAB PO BID 03/25/24 Tamsulosin HCl (Tamsulosin Hydrochloride) 0.4 Mg Cap, 0.4 MG PO DAILY, CAP 03/25/24 Beclomethasone Dipropionate (Qvar Redihaler) 80 Mcg/Act Aer, 2 PUFF IN BID, AER 03/25/24 Docusate Sodium (Colace) 100 Mg Cap, 100 MG PO BID PRN for FOR CONSTIPATION, CAP 03/25/24 Albuterol Sulfate (Albuterol Sulfate Hfa) 108 Mcg/Act Aer, 1 PUFF INH Q4HPRN PRN for SHORTNESS OF BREATH 03/25/24 Hydroxyzine Hcl (Hydroxyzine Hcl) 25 Mg Tab, 20 MG PO DAILY PRN for ANXIETY, TAB 03/25/24 Apixaban Base (ELIQUIS) 5 Mg Tab, 5 MG PO BID, TAB 10/12/23 Dicyclomine Hcl (Dicyclomine Hcl) 20 Mg Tab, 10 MG PO BID PRN for ABD MUSCLE SPASM, MG 10/12/23 Information Source: Patient Mode of Arrival: Ambulatory Timing: Days Duration: Since onset Prehospital treatment: None Quality: None Vomitus: None Stool: Normal Severity: Moderate Recent: None Recent Hx of: None Pain Location: Diffuse Modifying Factors: Nothing Associated sign and symptoms: Abdominal Pain Past Medical History PAST MEDICAL HISTORY: AFIB, Anxiety, Arthritis, Asthma, GERD, High Lipids, HTN Surgical History: Denies all surgeries Family History Family History: Reviewed,noncontributory to illness, Unknown Social History Smoker: Non-Smoker Alcohol: Denies ETOH Use Drugs: Denies Drug Use Lives In: Home Constitutional: reports: chills; denies: diaphoresis, fatigue, fever, malaise, sweats, weakness, others EENTM: denies: blurred vision, double vision, ear bleeding, ear discharge, ear drainage, ear pain, ear ringing, eye pain, eye redness, hearing loss, mouth pain, mouth swelling, nasal discharge, nose bleeding, nose congestion, nose pain, photophobia, tearing, throat pain, throat swelling, voice changes, others Respiratory: denies: cough, hemoptysis, orthopnea, SOB at rest, shortness of breath, SOB with excertion, stridor, wheezing, others Cardiovascular: denies: chest pain, dizzy spells, diaphoresis, Dyspnea on exertion, edema, irregular heart beat, left arm pain, lightheadedness, palpitations, PND, syncope, others Gastrointestinal: reports: abdominal pain; denies: abdomen distended, blood streaked bowels, constipated, diarrhea, dysphagia, difficulty swallowing, hematemesis, melena, nausea, poor appetite, poor fluid intake, rectal bleeding, rectal pain, vomiting, others Genitourinary: denies: burning, dysuria, flank pain, frequency, hematuria, incontinence, penile discharge, penile sore, pain, testicle pain, testicle swelling, urgency, others Neurological: denies: dizziness, fainting, headache, left sided numbness, left sided weakness, numbness, paresthesia, pre-existing deficit, right sided numbness, right sided weakness, seizure, speech problems, tingling, tremors, weakness, others Musculoskeletal: reports: others (LEG SWELLING); denies: back pain, gout, joint pain, joint swelling, muscle pain, muscle stiffness, neck pain Integumetry: denies: bruises, change in color, change in hair/nails, dryness, laceration, lesions, lumps, rash, wounds, others Allergic/Immunocompromised: denies: Difficulty Healing, Frequent Infections, Hives, Itching, others Hematologic/Lymphatic: denies: anemia, blood clots, easy bleeding, easy bruising, swollen glands, others Endocrine: denies: excessive hunger, excessive sweating, excessive thirst, excessive urination, flushing, intolerance to cold, intolerance to heat, unexplained weight gain, unexplained weight loss, others Psychiatric: denies: anxiety, bipolar disorder, depression, hopeless, panic disorder, schizophrenia, sleepless, suicidal, others All Other Systems: Reviewed and Negative Physical Exam General Appearance: No Apparent Distress HEENT: Other (Pupils and face symmetric. Moist mucous membranes.) Neck: Full Range of Motion, Normal Inspection Respiratory: Lungs Clear, No Accessory Muscle Use, No Respiratory Distress, Normal Breath Sounds Cardiovascular: No Edema, No JVD, Regular Rate/Rhythm Breast Exam: Deferred Gastrointestinal: LLQ, Soft, Tenderness Genitalia: Deferred Pelvic: Deferred Rectal: Deferred Extremities: Normal inspection, Normal range of motion, Non-tender, No pedal edema Neurologic: Alert (Oriented x4), Normal Affect, Normal Mood, Other (Ambulatory without difficulty.) Cerebellar Function: NOT DONE Reflexes: NOT DONE Skin: Dry, Normal Color, Warm Lymphatic: NOT DONE Was a procedure done? Was a procedure done?: No GI differential Dx Differential Diagnosis: Bowel Obstruction, Constipation, Diverticular disease, Gastroenteritis, Inflammatory BD, Ischemic Bowel, UTI, Food Poisoning, Bacterial, Viral, Impaction, Kidney Stone Other Differential Diagnosis Colitis X-Ray, Labs, Meds, VS Vital Signs Date Time Temp Pulse Resp B/P (MAP) Pulse Ox O2 Delivery O2 Flow Rate FiO2 08/01/24 18:17 99.3 61 18 152/74 (100) 96 99.3 Lab Test 08/01/24 19:32 08/01/24 17:52 Range/Units White Blood Count 4.3 L 4.4-10.8 10^3/uL Red Blood Count 4.83 4.5-5.90 10^6/uL Hemoglobin 15.8 13.5-17.5 g/dL Hematocrit 46.4 41.0-53.0 % Mean Corpuscular Volume 96.1 80.0-100.0 fL Mean Corpuscular Hemoglobin 32.8 H 28.0-32.0 pg Mean Corpuscular Hemoglobin Concent 34.1 32.0-36.0 g/dL Red Cell Distribution Width 15.2 H 11.8-14.3 % Platelet Count 264 140-450 10^3/uL Mean Platelet Volume 7.0 6.9-10.8 fL Neutrophils (%) (Auto) 64.2 37.0-80.0 % Lymphocytes (%) (Auto) 21.3 10.0-50.0 % Monocytes (%) (Auto) 9.6 0.0-12.0 % Eosinophils (%) (Auto) 4.3 0.0-7.0 % Basophils (%) (Auto) 0.6 0.0-2.0 % Neutrophils # (Auto) 2.7 1.6-8.6 10 ^3/uL Lymphocytes # (Auto) 0.9 0.4-5.4 10 ^3/uL Monocytes # (Auto) 0.4 0-1.3 10 ^3/uL Eosinophils # (Auto) 0.2 0-0.8 10 ^3/uL Basophils # (Auto) 0 0-0.2 10 ^3/uL Nucleated Red Blood Cells 0.2 % Sodium Level 144 136-145 mmol/L Potassium Level 3.9 3.5-5.1 mmol/L Chloride Level 108 H 98-107 mmol/L Carbon Dioxide Level 27 20-31 mmol/L Anion Gap 9 5-15 Blood Urea Nitrogen 15 9-23 mg/dL Creatinine 1.31 H 0.700-1.30 mg/dL Glomerular Filtration Rate Calc 66 >90 mL/min BUN/Creatinine Ratio 11.5 10.0-20.0 Serum Glucose 119 H 74-106 mg/dL Lactic Acid Level 1.1 0.4-2.0 mmol/L Calcium Level 10.4 8.7-10.4 mg/dL Total Bilirubin 0.7 0.2-1.0 mg/dL Aspartate Amino Transferase (AST) 21 13-40 U/L Alanine Aminotransferase (ALT) 42 H 7-40 U/L Alkaline Phosphatase 69 46-116 U/L Total Protein 7.8 5.7-8.2 g/dL Albumin 5.2 H 3.2-4.8 g/dL Urine Color Yellow Yellow Urine Clarity Clear Clear Urine pH 5.5 5.0-9.0 Urine Specific [place] 1.021 1.001-1.035 Urine Protein Negative Negative Urine Ketones Negative Negative Urine Blood Negative Negative /uL Urine Nitrite Negative Negative Urine Bilirubin Negative Negative Urine Urobilinogen Normal Negative mg/dL Urine Leukocyte Esterase Negative Negative /uL Urine RBC <1 0 - 3 /hpf Urine Microscopic WBC < 1 0-3 /HPF Urine Squamous Epithelial Cells None seen <5 /hpf Urine Bacteria None seen None Seen /hpf Urine Mucus Few None Seen Urine Glucose Normal Normal mg/dL [address] [address] Ph: [phone] DIAGNOSTIC IMAGING Diagnostic Imaging Report : [id number] Signed PATIENT: LUIS MIGUEL JOSHI ACCT: [id number] UNIT: [id number] : 1975 LOC: ER ROOM / BED: / AGE / SEX: 49 / M ADM STATUS: REG ER SERVICE [id number] ORDERING PHYSICIAN: YOSHI BONNER MD PROCEDURE(s): ABPL - CT AB PEL WO CON-NO ORAL OR IV REASON: LLQ pain ORDER NUMBER(s): [id number], ACCESSION NUMBER(s): [id number] Exam: CT CT AB PEL WO CON-NO ORAL OR IV History: LLQ pain Comparison Study: None available at time of dictation. TECHNIQUE: Multidetector CT of the abdomen was performed from lung bases to pubic symphysis. Imaging was performed without IV contrast. Axial, coronal and sagittal multiplanar reformats were obtained from the axial data set by the technologist. Radiation Dose Information: CT Dose: CTDI volume is 12.91 mGy. Dose-length product is 746.17 mGy*cm FINDINGS: Evaluation of solid organs is limited due to lack of intravenous contrast use. Findings: Lung Bases: No acute or significant lung base finding. Normal heart size. No pleural or pericardial effusion. Liver: The liver is normal in size. No focal lesions. Gallbladder and Biliary Tree: Unremarkable Spleen: Unremarkable Pancreas: The pancreas is grossly normal in appearance. 2 small calcifications in the head of the pancreas. Adrenal Glands: Unremarkable Kidneys: Kidneys are grossly normal without calculi or hydronephrosis. Bladder: Grossly unremarkable for degree of distention. Bowel: The stomach is grossly normal in appearance. Small bowel and colon are normal in caliber and distribution. The appendix is visualized and appears normal. Ascites: Absent Lymphadenopathy: No mesenteric, retroperitoneal or periportal lymphadenopathy. Abdominal Wall and Mesentery: 12.51 mm fat containing umbilical hernia Vasculature: The visualized abdominal aorta is normal in size and caliber. Evaluation of abdominal and pelvic vessels is limited due to lack of intravenous contrast. Pelvic Organs: Unremarkable Musculoskeletal: No aggressive focal bony lesions, acute fractures or dislocation. Soft tissues: Unremarkable IMPRESSION: 1. No calcified gallstones 2. 2 small calculi in the head of the pancreas unchanged from 07/10/2024. 3. No free air or free fluid. No findings to suggest diverticulitis. 4. No nephrolithiasis or hydronephrosis. No bladder calculi. 5. Small 12.5 mm fat containing umbilical hernia. Radiation optimization: All CT scans at this facility use at least one of these dose optimization techniques: automated exposure control mA and/or kV adjustment per patient size (includes targeted exams where dose is matched to clinical indication) or iterative reconstruction. ATED BY: KELY NOVA Jr., DO DICTATED DATE/TIME: 08/01/241922 SIGNED BY: KELY NOVA Jr., SIGNED DATE/TIME: 08/01/241922 CC: X-Ray, Labs, Meds, VS Comment 49-year-old male with a history of AFib, hypertension, dyslipidemia, GERD, arthritis, anxiety and anemia complaining of lower abdominal pain and nausea Vitals remarkable for BP 152/74 Exam remarkable for left lower quadrant tenderness to palpation. No tenderness to percussion. No rebound or guarding. Rhythm strip independently interpreted by me: Sinus rhythm, rate 61, no ectopy. CT abdomen and pelvis IMPRESSION: 1. No calcified gallstones 2. 2 small calculi in the head of the pancreas unchanged from 07/10/2024. 3. No free air or free fluid. No findings to suggest diverticulitis. 4. No nephrolithiasis or hydronephrosis. No bladder calculi. 5. Small 12.5 mm fat containing umbilical hernia. CBC remarkable for WBC 4.3, metabolic panel remarkable for creatinine 1.31, lactate normal, UA negative Patient treated with the following in the ED: Zofran 4 mg IV, Bentyl 20 mg IM, viscous lidocaine 10 mL, 10 mL, Maalox 30 mL p.o. , Carafate 1 g p.o. On re-evaluation, patient appears comfortable with stable vitals. Pain has somewhat improved. Hospitalization was considered, however patient had improvement of symptoms with treatment in the ED, workup is essentially unremarkable, and I no longer feel hospitalization is necessary. Patient appear s stable for discharge with close follow-up with his primary physician. Rx Chauncey Higgins Case discussed with Dr. Sammy Troy, who also did not feel the patient required hospital admission and advised the patient be discharged and follow-up with his primary physician tomorrow. Time of 1ST Reevaluation: 19:26 Reevaluation 1ST: Unchanged Time of 2ND Reevaluation: 20:43 Reevaluation 2ND: Improved Patient Education/Counseling: Diagnosis, Treatment Family Education/Counseling: No Family Present Departure 1 Departure Time of Disposition: 20:43 Impression: Primary Impression: Abdominal pain Qualified Codes: R10.32 - Left lower quadrant pain Disposition: HOME / SELF CARE / HOMELESS Condition: Stable Additional Instructions: Blood tests were unremarkable. Your urine test was normal. Your CT scan did not show any acute abnormality that would explain your symptoms. I have prescribed medication pain and nausea. Follow-up with your primary doctor in 1- 2 days. Return to ER for persistent or worsening symptoms. e-Prescriptions Sucralfate (CARAFATE SUSP) 1 Gm/10 Ml Ss 10 ML PO QID PRN, #600 ML 1 Refill prn abdominal pain Prov: YOSHI BONNER MD 08/01/24 Ondansetron Odt 4MG Tab (ZOFRAN PO) 4 Mg Tb 4 MG PO TID PRN, #30 TAB prn nausea or vomiting ODT TAB-DISSOLVE IN MOUTH, THEN SWALLOW Prov: YOSHI BONNER MD 08/01/24 Dicyclomine Hcl (BENTYL CAPSULE) 10 Mg Cp 2 CAP PO Q6HP PRN, #90 CAP 11 Refills prn abdominal pain Prov: YOSHI BONNER MD 08/01/24 Discharged With: Self Critical Care Note Critical Care Time?: No Stability Stability form required: No Heart Score Heart Score: Heart Score Response (Comments) Value History N/A 0 EKG N/A 0 Age N/A 0 Risk Factors N/A 0 Troponin N/A 0 Total 0 I personally scribed for YOSHI BONNER MD ([email or web address]) on 08/01/24 at 18:57. Electronically submitted by Marlene De La Torre ([email or web address]). I personally scribed for YOSHI BONNER MD ([email or web address]) on 08/01/24 at 19:32. Electronically submitted by Marlene De La Torre ([email or web address]). YOSHI BONNER MD Aug 01, 2024 18:57
[2024-08-01] MEDS: ONDANSETRON HCL 4 MG/2 ML VIAL IV ONE (19:00)
[2024-08-01] MEDS: DICYCLOMINE HCL (10MG/ML) 2 ML AMPULE IM ONE (19:00)
[2024-08-01 19:20] LABS: Urine Bacteria None Seen /hpf (None Seen)
--- NOTE | 2024-08-01 19:26 | DVH ---
Exam: CT CT AB PEL WO CON-NO ORAL OR IV History: LLQ pain Comparison Study: None available at time of dictation. TECHNIQUE: Multidetector CT of the abdomen was performed from lung bases to pubic symphysis. Imaging was performed without IV contrast. Axial, coronal and sagittal multiplanar reformats were obtained fr om the axial data set by the technologist. Radiation Dose Information: CT Dose: CTDI volume is 12.91 mGy. Dose-length product is 746.17 mGy*cm FINDINGS: Evaluation of solid organs is limited due to lack of intravenous contrast use. Findings: Lung Bases: No acute or significant lung base finding. Normal heart size. No pleural or pericardial effusion. Liver: The liver is normal in size. No focal lesions. Gallbladder and Biliary Tree: Unremarkable Spleen: Unremarkable Pancreas: The pancreas is grossly normal in appearance. 2 small calcifications in the head of the [place]. Adrenal Glands: Unremarkable Kidneys: Kidneys are grossly normal without calculi or hydronephrosis. Bladder: Grossly unremarkable for degree of distention. Bowel: The stomach is grossly normal in appearance. Small bowel and colon are normal in caliber and d istribution. The appendix is visualized and appears normal. Ascites: Absent Lymphadenopathy: No mesenteric, retroperitoneal or periportal lymphadenopathy. Abdominal Wall and Mesentery: 12.51 mm fat containing umbilical hernia Vasculature: The visualized abdominal aorta is normal in size and caliber. Evaluation of abdominal a nd pelvic vessels is limited due to lack of intravenous contrast. Pelvic Organs: Unremarkable Musculoskeletal: No aggressive focal bony lesions, acute fractures or dislocation. Soft tissues: Unremarkable IMPRESSION: 1. No calcified gallstones 2. 2 small calculi in the head of the pancreas unchanged from 07/10/2024. 3. No free air or free fluid. No findings to suggest diverticulitis. 4. No nephrolithiasis or hydronephrosis. No bladder calculi. 5. Small 12.5 mm fat containing umbilical hernia. Radiation optimization: All CT scans at this facility use at least one of these dose optimization te chniques: automated exposure control mA and/or kV adjustment per patient size (includes targeted exa ms where dose is matched to clinical indication) or iterative reconstruction.
[2024-08-01 19:33] LABS: Urine Blood Negative /uL (Negative); Urine Clarity Clear (Clear); Urine Color Yellow (Yellow); Urine Mucus FEW (None Seen); Urine Protein, UAD Negative (Negative); Urine Specific Gravity 1.021 (1.001-1.035); Urine Squamous Epithelial Cell None Seen /hpf (<5); Urine Urobilinogen Normal (Negative); Urine WBC < 1 /HPF (0-3); Urine pH 5.5 (5.0-9.0)
[2024-08-01 19:48] LABS: Basophils # (auto) 0 10 ^3/uL (0-0.2); Basophils % (auto) 0.6 % (0.0-2.0); Eosinophils # (auto) 0.2 10 ^3/uL (0-0.8); Eosinophils % (auto) 4.3 % (0.0-7.0); Hematocrit 46.4 % (41.0-53.0); Hemoglobin 15.8 g/dL (13.5-17.5); Lymphocytes # (auto) 0.9 10 ^3/uL (0.4-5.4); Lymphocytes % (auto) 21.3 % (10.0-50.0); Mean Corpuscular Hemoglobin 32.8 pg (28.0-32.0); Mean Corpuscular Hgb Conc. 34.1 g/dL (32.0-36.0); Mean Corpuscular Volume 96.1 fL (80.0-100.0); Monocytes # (auto) 0.4 10 ^3/uL (0-1.3); Monocytes % (auto) 9.6 % (0.0-12.0); Neutrophils # (auto) 2.7 10 ^3/uL (1.6-8.6); Neutrophils % (auto) 64.2 % (37.0-80.0); Nucleated Red Blood Cells % 0.2 %; Platelet Count (auto) 264 10^3/uL (140-450); Red Blood Cells 4.83 10^6/uL (4.5-5.90); Red Cell Distribution Width 15.2 % (11.8-14.3); White Blood Cell 4.3 10^3/uL (4.4-10.8)
[2024-08-01 19:58] LABS: Alkaline Phosphatase 69 U/L (46-116); Anion Gap 9 (5-15); Aspartate Aminotransferase 21 U/L (13-40); BUN/Creatinine Ratio 11.5 (10.0-20.0); Blood Urea Nitrogen 15 mg/dL (9-23); Carbon Dioxide 27 mmol/L (20-31); Potassium 3.9 mmol/L (3.5-5.1); Sodium 144 mmol/L (136-145); Total Protein 7.8 g/dL (5.7-8.2)
[2024-08-01 19:59] LABS: Alanine Aminotransferase 42 U/L (7-40); Albumin 5.2 g/dL (3.2-4.8); Bilirubin, Total 0.7 mg/dL (0.2-1.0); Calcium 10.4 mg/dL (8.7-10.4); Chloride 108 mmol/L (98-107); Glucose 119 mg/dL (74-106)
[2024-08-01] MEDS: DONNATAL 5ml ORAL Elix (BELLADONNA ALK-PHENOBARB) PO ONE (20:30)
[2024-08-01] MEDS ORDERED: DICY10CA PO (20:46)
[2024-08-01] MEDS ORDERED: ZOFR4T PO (20:46)
[2024-08-01] MEDS: MAGNESIUM CITRATE SOLUTION 300 ML BTL PO ONE (21:39)
[2024-08-01] MEDS ORDERED: SUCR1SUS26 PO (21:44)
[2024-08-01] MEDS: MAALOX PLUS or MAALOX 30 ML PO ONE (21:46)
[2024-08-01] MEDS: LIDOCAINE VISCOUS 2% 15ML UD PO ONE (21:47)
[2024-08-01] MEDS: SUCRALFATE 1 GM/10 ML ORAL SUSP PO ONE (21:53)
[2024-08-01 21:58] VITALS: BP 126/78; PULSE 60; RESP 10; TEMP 99.1; O2SAT 98
== END 2024-08-01 21:44 | disposition home or self-care (01) ==
LOC: ER 17:51
DX: R10.32 Left lower quadrant pain (principal); R19.7 Diarrhea, unspecified; I10 Essential (primary) hypertension; E11.9 Type 2 diabetes mellitus without complications; E78.5 Hyperlipidemia, unspecified; F41.9 Anxiety disorder, unspecified; I48.91 Unspecified atrial fibrillation; J45.909 Unspecified asthma, uncomplicated; K42.9 Umbilical hernia without obstruction or gangrene; M19.90 Unspecified osteoarthritis, unspecified site; Z79.899 Other long term (current) drug therapy; Z88.0 Allergy status to penicillin; Z88.5 Allergy status to narcotic agent; Z88.6 Allergy status to analgesic agent; Z88.8 Allergy status to other drugs, medicaments and biological substances
CPT/HCPCS: 36415; 74176; 80053; 81001; 83605; 85025; 96372; 99285; J0500; J2405

== ENCOUNTER 2024-08-23 17:16 | Emergency (ER) | payer OTHER ==
[~2024-08-23] VITALS: Ht 175.3 cm; Wt 89.4 kg
[~2024-08-23 17:16] MED LIST changes: +DICY10CA PO; +SUCR1SUS26 PO; +ZOFR4T PO
--- NOTE | 2024-08-23 17:39 | ED.PDOC ---
GI ASSESSMENT HPI Comments 49 Year-Old Male presents to the ED with the c/c of Abd Pain. Pt notes of a burning sensation in his mid abdomen that radiated to his lower chest that started 20 minutes prior to arriving to the ED. There are no alleviating factors at this time. Pt also notes that he was Bradycardic at 48 this morning, as well as loose stool. Pain is similar characteristics to many previous ED presentations with negative workup. Patient states the medicine we usually give him here in the ER works to resolve his symptoms. Patient was seen by GI specialist in the past and is awaiting colonoscopy next month. PMHx: Gerd, HTN, A-Fib, Hyperlipidemia SHx: 2x Back surgery, Vitals: TEMP: 98 RR: 18 SPO2: 97% HR 61 BP: 120/79 HPI: Poor Historian. REVIEW OF SYSTEMS: CONSTITUTIONAL: Denies acute: fever, diaphoresis, chills, generalized weakness. HEAD: Denies acute: headache, photophobia Eyes: Denies acute: Double vision, vision loss, eye pain, eye discharge. EARS: Denies acute: tinnitus, hearing loss, ear discharge, ear pain, THROAT: Denies acute: sore throat, swelling, difficulty swallowing , pain with swallowing, change in voice. NECK: Denies acute: neck pain, neck swelling, stiff neck. HEART: Denies acute : chest pain, palpitations, LUNGS: Denies acute: SOB, wheezing, cough, hemoptysis ABDOMEN: Denies acute: Nausea, Vomiting, diarrhea, melena , hematemesis, hematochezia SKIN: Denies acute: rash, redness, lesions, itchiness. EXTREMITIES: Denies acute: calf pain, numbness, tingling, weakness, denies pain in extremity. Denies acute: Low back pain. Neuro: Denies acute: focal neurological deficit, motor or sensory focal neurological deficit, tremors, seizure like activity, confusion, dizziness, change in mental status, loss of bowel or bladder function, cauda equina like symptoms. : Denies acute: dysuria, hematuria, flank pain, increase in urinary frequency. PSYCH: Denies acute: hallucination, suicidal ideation, homicidal ideation. PHYSICAL EXAM: General: ----no----acute distress, awake and alert. Head: normocephalic, atraumatic. Neck: supple, trachea is midline, no swelling. Throat: Normal phonation. Eyes:, no erythema, no purulent discharge, no proptosis, no icterus. Heart: regular rate, regular rhythm, no significant murmur appreciated. Lungs: no apparent respiratory distress, Able to speak in full sentences. No wheezing, no rhonchi, no crackles. No stridors Clear to auscultation bilaterally. Abdomen: Minimal epigastric periumbilical tender to palpation, non distended, soft, no guarding, no rebound, + bowel sounds. Neuro: Awake, Alert, oriented to name, self, situation, follows commands GCS=15. Speech is normal. Skin: no petechia, no purpura, no cyanosis, non-pale, not jaundice. Lower extremities: --trace bilateral - Pitting edema no deformity, no focal swelling, no calf TTP. Makes eye contact. moves all four extremities. Face: no apparent facial droop. Ambulating in the ED independently. ED COURSE: Chief Complaint: Abdominal Pain Time Seen by MD: 17:35 Primary Care Provider: JORDYN Reviewed Notes: Nurses Notes, Allergies Allergies: Coded Allergies: Acetaminophen (Verified Allergy, Unknown, 03/02/23) Amoxicillin (Verified Allergy, Unknown, 03/02/23) Codeine (Verified Allergy, Unknown, 03/02/23) Hydrocodone (Verified Allergy, Unknown, 03/24/24) Ibuprofen (Verified Allergy, Unknown, 03/02/23) Penicillins (Verified Allergy, Unknown, 03/02/23) Statins (Verified Allergy, Unknown, 03/02/23) Tramadol (Verified Allergy, Unknown, 03/02/23) Uncoded Allergies: WALNUTS (Allergy, Unknown, 03/02/23) Home Meds Active Scripts Sucralfate (CARAFATE SUSP) 1 Gm/10 Ml Ss, 10 ML PO QID PRN, #600 ML 1 Refill prn abdominal pain Prov:YOSHI BONNER MD 08/01/24 Ondansetron Odt 4MG Tab (ZOFRAN PO) 4 Mg Tb, 4 MG PO TID PRN, #30 TAB prn nausea or vomiting ODT TAB-DISSOLVE IN MOUTH, THEN SWALLOW Prov:YOSHI BONNER MD 08/01/24 Dicyclomine Hcl (BENTYL CAPSULE) 10 Mg Cp, 2 CAP PO Q6HP PRN, #90 CAP 11 Refills prn abdominal pain Prov:YOSHI BONNER MD 08/01/24 Gabapentin (Gabapentin) 300 Mg Cap, 1 CAP PO TID, #90 CAP 5 Refills Prov:MCKENNA ROTH EXTRUSION TECHNICIAN 05/24/24 Amiodarone HCl (Amiodarone HCl) 200 Mg Tab, 200 MG PO BID for 30 Days, #60 TAB Prov:MCKENNA ROTH EXTRUSION TECHNICIAN 05/24/24 Sucralfate (Sucralfate) 1 Gm Tab, 1 TAB PO QID for 30 Days, #120 TAB Prov:MCKENNA ROTH EXTRUSION TECHNICIAN 11/15/23 Pantoprazole Sodium Sesquihydr (Pantoprazole Sodium) 40 Mg Tab, 1 TAB PO BID for 30 Days, #60 TAB Prov:MCKENNA ROTH EXTRUSION TECHNICIAN 11/15/23 Reported Medications Evolocumab (Repatha Sureclick) 140 Mg/Ml Inj, SC 1 PRE-FILLED PEN EVERY 2 WEEKS 07/11/24 Pravastatin Sodium (PRAVACHOL TABLET) 20 Mg Tb, 40 MG PO DAILY 07/11/24 Ketoconazole (Ketoconazole) 2 % Cre, 1 APPLIC TOP BID, #60 GRAMS 1 Refill 05/18/24 Clotrimazole (Clotrimazole) 1 % Cre, 1 APPLIC TOP Q12HR for 30 Days, APPLIC 05/18/24 Atogepant (Qulipta) 60 Mg Tab, 60 MG PO DAILY, TAB 05/18/24 Labetalol HCl (Labetalol Hydrochloride) 200 Mg Tab, 1 TAB PO BID 03/25/24 Tamsulosin HCl (Tamsulosin Hydrochloride) 0.4 Mg Cap, 0.4 MG PO DAILY, CAP 03/25/24 Beclomethasone Dipropionate (Qvar Redihaler) 80 Mcg/Act Aer, 2 PUFF IN BID, AER 03/25/24 Docusate Sodium (Colace) 100 Mg Cap, 100 MG PO BID PRN for FOR CONSTIPATION, CAP 03/25/24 Albuterol Sulfate (Albuterol Sulfate Hfa) 108 Mcg/Act Aer, 1 PUFF INH Q4HPRN PRN for SHORTNESS OF BREATH 03/25/24 Hydroxyzine Hcl (Hydroxyzine Hcl) 25 Mg Tab, 20 MG PO DAILY PRN for ANXIETY, TAB 03/25/24 Apixaban Base (ELIQUIS) 5 Mg Tab, 5 MG PO BID, TAB 10/12/23 Dicyclomine Hcl (Dicyclomine Hcl) 20 Mg Tab, 10 MG PO BID PRN for ABD MUSCLE SPASM, MG 10/12/23 Past Medical History PAST MEDICAL HISTORY: AFIB, Anxiety, Arthritis, Asthma, GERD, High Lipids, HTN Surgical History: Denies all surgeries Family History Family History: Reviewed,noncontributory to illness, Unknown Social History Smoker: Non-Smoker Alcohol: Denies ETOH Use Drugs: Denies Drug Use Lives In: Home Was a procedure done? Was a procedure done?: No GI differential Dx Differential Diagnosis: Other (DDX include but not limited to diverticulitis, colitis, gastroenteritis, acute abdomen, SBO, enteritis, constipation, volvulus, appendicitis, Gallbladder disease, choledocolithiasis, ascending cholangitis, pancreatitis, intraAbdominal mass/neoplasm, hepatitis, UTI, pylonephritis, kidney stone, aneurysm, dissection, Inflammatory bowel disease, gastroparesis, ischemic bowel.) X-Ray, Labs, Meds, VS Vital Signs Date Time Temp Pulse Resp B/P (MAP) Pulse Ox O2 Delivery O2 Flow Rate FiO2 08/23/24 20:05 98.8 65 16 117/76 (90) 97 98.8 08/23/24 17:29 59 08/23/24 17:20 98.0 61 18 120/79 (93) 97 98.0 Lab Test 08/23/24 19:05 08/23/24 18:05 08/23/24 17:31 08/23/24 17:25 Range/Units Troponin I High Sensitivity < 3 L < 3 L </=54 ng/L White Blood Count 4.5 4.4-10.8 10^3/uL Red Blood Count 4.23 L 4.5-5.90 10^6/uL Hemoglobin 14.2 13.5-17.5 g/dL Hematocrit 41.2 41.0-53.0 % Mean Corpuscular Volume 97.5 80.0-100.0 fL Mean Corpuscular Hemoglobin 33.5 H 28.0-32.0 pg Mean Corpuscular Hemoglobin Concent 34.3 32.0-36.0 g/dL Red Cell Distribution Width 14.8 H 11.8-14.3 % Platelet Count 202 140-450 10^3/uL Mean Platelet Volume 7.3 6.9-10.8 fL Neutrophils (%) (Auto) 62.6 37.0-80.0 % Lymphocytes (%) (Auto) 23.9 10.0-50.0 % Monocytes (%) (Auto) 11.2 0.0-12.0 % Eosinophils (%) (Auto) 1.8 0.0-7.0 % Basophils (%) (Auto) 0.5 0.0-2.0 % Neutrophils # (Auto) 2.8 1.6-8.6 10 ^3/uL Lymphocytes # (Auto) 1.1 0.4-5.4 10 ^3/uL Monocytes # (Auto) 0.5 0-1.3 10 ^3/uL Eosinophils # (Auto) 0.1 0-0.8 10 ^3/uL Basophils # (Auto) 0 0-0.2 10 ^3/uL Nucleated Red Blood Cells 0.1 % Sodium Level 141 136-145 mmol/L Potassium Level 4.2 3.5-5.1 mmol/L Chloride Level 108 H 98-107 mmol/L Carbon Dioxide Level 22 20-31 mmol/L Anion Gap 11 5-15 Blood Urea Nitrogen 22 9-23 mg/dL Creatinine 1.34 H 0.700-1.30 mg/dL Glomerular Filtration Rate Calc 65 >90 mL/min BUN/Creatinine Ratio 16.4 10.0-20.0 Serum Glucose 109 H 74-106 mg/dL Lactic Acid Level 0.7 0.4-2.0 mmol/L Calcium Level 9.4 8.7-10.4 mg/dL Total Bilirubin 0.6 0.2-1.0 mg/dL Aspartate Amino Transferase (AST) 25 13-40 U/L Alanine Aminotransferase (ALT) 39 7-40 U/L Alkaline Phosphatase 73 46-116 U/L B-Type Natriuretic Peptide 36.53 0-100 pg/mL Total Protein 6.7 5.7-8.2 g/dL Albumin 4.7 3.2-4.8 g/dL Lipase 35 12-53 U/L POC Glucose 125 H 70-106 mg/dl Urine Color Yellow Yellow Urine Clarity Clear Clear Urine pH 5.5 5.0-9.0 Urine Specific [place] 1.025 1.001-1.035 Urine Protein Negative Negative Urine Ketones Negative Negative Urine Blood Negative Negative /uL Urine Nitrite Negative Negative Urine Bilirubin Negative Negative Urine Urobilinogen Normal Negative mg/dL Urine Leukocyte Esterase Negative Negative /uL Urine RBC <1 0 - 3 /hpf Urine Microscopic WBC < 1 0-3 /HPF Urine Squamous Epithelial Cells None seen <5 /hpf Urine Bacteria None seen None Seen /hpf Urine Mucus Few None Seen Urine Glucose Normal Normal mg/dL [place] [address] Ph: [phone] DIAGNOSTIC IMAGING Diagnostic Imaging Report : [id number] Signed PATIENT: LUIS MIGUEL JOSHI ACCT: [id number] UNIT: [id number] : 1975 LOC: ER ROOM / BED: / AGE / SEX: 49 / M ADM STATUS: REG ER SERVICE [id number] ORDERING PHYSICIAN: NARESH METZGER DO PROCEDURE(s): ABPL - CT AB PEL WO CON-NO ORAL OR IV REASON: abd pain ORDER NUMBER(s): [id number], ACCESSION NUMBER(s): [id number] EXAM: CT Abdomen and Pelvis Without Intravenous Contrast CLINICAL INDICATION: abd pain TECHNIQUE: Axial computed tomography images of the abdomen and pelvis without intravenous contrast. This CT exam was performed using one or more of the following dose reduction techniques: automated exposure control, adjustment of the mA and/or kV according to patient size, and/or use of iterative reconstruction technique. CONTRAST: RADIATION DOSE: CTDIvol = 22.49 mGy, DLP = 1260.32 mGy-cm COMPARISON: CT CT AB PEL WO CON-NO ORAL OR IV on DOS: 08/01/24, CT CT AB PEL WO CON-NO ORAL OR IV on DOS: 07/10/24, CT CT AB PEL WO CON-NO ORAL OR IV on DOS: 05/16/24, CT CT AB PEL WO CON-NO ORAL OR IV on DOS: 03/26/24, CT CT AB PEL WO CON-NO ORAL OR IV on DOS: 11/12/23 FINDINGS: LUNG BASES: Unremarkable. No mass. No consolidation. MEDIASTINUM: Small esophageal hiatal hernia. ABDOMEN: LIVER: Fatty infiltration of the liver. GALLBLADDER AND BILE DUCTS: Unremarkable. No calcified stones. No ductal dilation. PANCREAS: Unremarkable. No ductal dilation. SPLEEN: Unremarkable. No splenomegaly. ADRENALS: Unremarkable. No mass. KIDNEYS AND URETERS: Unremarkable. No obstructing stones. No hydronephrosis. STOMACH AND BOWEL: Fecal retention in the colon consistent with constipation. No obstruction. No mucosal thickening. PELVIS: APPENDIX: No findings to suggest acute appendicitis. BLADDER: Unremarkable. No stones. REPRODUCTIVE: Unremarkable as visualized. ABDOMEN and PELVIS: INTRAPERITONEAL SPACE: Unremarkable. No free air. No significant fluid collection. BONES/JOINTS: No acute fracture. No dislocation. SOFT TISSUES: Umbilical hernia containing fat. Left inguinal hernia. VASCULATURE: Unremarkable. No abdominal aortic aneurysm. LYMPH NODES: Unremarkable. No enlarged lymph nodes. OTHER FINDINGS: . . . IMPRESSION: 1. Small esophageal hiatal hernia. 2. Fecal retention in the colon consistent with constipation. 3. Umbilical hernia containing fat. 4. Left inguinal hernia. ATED BY: APOORVA IZQUIERDO MD DICTATED DATE/TIME: 08/23/241824 SIGNED BY: APOORVA IZQUIERDO MD SIGNED DATE/TIME: 08/23/241824 CC: Time of 1ST Reevaluation: 18:05 Reevaluation 1ST: Unchanged Patient Education/Counseling: Diagnosis, Treatment Family Education/Counseling: No Family Present Comments Patient presented with the above HPI.-abdominal pain -----workup was initiated. patient was found with the above mentioned diagnosis. the following medications were ordered: please refer to order lists of meds and tests obtained by myself Dr. Metzger. Patient ED course and VS have been stabilized. Patient has been reassessed in the ED and remained in a stable condition. Pertinent incidental findings were discussed with the patient and/or family. Patient/family voices understanding and is agreeable with plan. Patient has been observed in the ED adequate length of time to insure improvement/stability. Escalation of care considered: Consideration of escalation to observation or admission Patient was consented for CT scan imaging Patient was DISCHARGED home in a stable condition. All the reports of any imaging studies that were ordered by myself were reviewed by myself. Departure 1 Departure Time of Disposition: 19:11 Impression: Primary Impression: Recurrent abdominal pain Disposition: 01 HOME / SELF CARE / HOMELESS Condition: Stable Additional Instructions: Additional instructions: You MUST follow-up with your primary care/family doctor in 1 to 2 days. If you are unable to see your primary care/family doctor, please return to our emergency room for re-assessment and re-evaluation in 1 to 2 days. Return to the emergency room here in our facility or to the nearest ER [facility] if your symptoms change or worsen. CONSULTATIONS: you MUST Follow-up for consultation as soon as possible with: gastroenterology in 1-2 days. Please call for appointment. You MUST call the consultants office yourself to make an appointment. You may need to arrange that through your insurance and/or your primary/family doctor. If you are unable to see the pricing consultant in 1 to 2 days, you must return to our emergency room (or any other ER of your choice) for re-assessment and re- evaluation. Adequate fluid hydration. Avoid fatty greasy spicy food. Avoid caffeinated products. Avoid NSAIDs. Below is a copy of your radiological report for follow up: \ [place] [address] Ph: [phone] DIAGNOSTIC IMAGING Diagnostic Imaging Report : [id number] Signed PATIENT: LUIS MIGUEL JOSHI ACCT: [id number] UNIT: [id number] : 1975 LOC: ER ROOM / BED: / AGE / SEX: 49 / M ADM STATUS: REG ER SERVICE 1734 ORDERING PHYSICIAN: NARESH METZGER DO PROCEDURE(s): ABPL - CT AB PEL WO CON-NO ORAL OR IV REASON: abd pain ORDER NUMBER(s): [id number], ACCESSION NUMBER(s): [id number] EXAM: CT Abdomen and Pelvis Without Intravenous Contrast CLINICAL INDICATION: abd pain TECHNIQUE: Axial computed tomography images of the abdomen and pelvis without intravenous contrast. This CT exam was performed using one or more of the following dose reduction techniques: automated exposure control, adjustment of the mA and/or kV according to patient size, and/or use of iterative reconstruction technique. CONTRAST: RADIATION DOSE: CTDIvol = 22.49 mGy, DLP = 1260.32 mGy-cm COMPARISON: CT CT AB PEL WO CON-NO ORAL OR IV on DOS: 08/01/24, CT CT AB PEL WO CON-NO ORAL OR IV on DOS: 07/10/24, CT CT AB PEL WO CON-NO ORAL OR IV on DOS: 05/16/24, CT CT AB PEL WO CON-NO ORAL OR IV on DOS: 03/26/24, CT CT AB PEL WO CON-NO ORAL OR IV on DOS: 11/12/23 FINDINGS: LUNG BASES: Unremarkable. No mass. No consolidation. MEDIASTINUM: Small esophageal hiatal hernia. ABDOMEN: LIVER: Fatty infiltration of the liver. GALLBLADDER AND BILE DUCTS: Unremarkable. No calcified stones. No ductal dilation. PANCREAS: Unremarkable. No ductal dilation. SPLEEN: Unremarkable. No splenomegaly. ADRENALS: Unremarkable. No mass. KIDNEYS AND URETERS: Unremarkable. No obstructing stones. No hydronephrosis. STOMACH AND BOWEL: Fecal retention in the colon consistent with constipation. No obstruction. No mucosal thickening. PELVIS: APPENDIX: No findings to suggest acute appendicitis. BLADDER: Unremarkable. No stones. REPRODUCTIVE: Unremarkable as visualized. ABDOMEN and PELVIS: INTRAPERITONEAL SPACE: Unremarkable. No free air. No significant fluid collection. BONES/JOINTS: No acute fracture. No dislocation. SOFT TISSUES: Umbilical hernia containing fat. Left inguinal hernia. VASCULATURE: Unremarkable. No abdominal aortic aneurysm. LYMPH NODES: Unremarkable. No enlarged lymph nodes. OTHER FINDINGS: . . . IMPRESSION: 1. Small esophageal hiatal hernia. 2. Fecal retention in the colon consistent with constipation. 3. Umbilical hernia containing fat. 4. Left inguinal hernia. ATED BY: APOORVA IZQUIERDO MD DICTATED DATE/TIME: 08/23/241824 SIGNED BY: APOORVA IZQUIERDO MD SIGNED DATE/TIME: 08/23/241824 CC: Discharged With: Self Critical Care Note Critical Care Time?: No I personally scribed for NARESH METZGER DO ([email or web address]) on 08/23/24 at 17:39. Electronically submitted by Jose Roberto Bolanos ([email or web address]). I personally scribed for NARESH METZGER DO ([email or web address]) on 08/23/24 at 18:56. Electronically submitted by Kerwin Greene ([email or web address]). NARESH METZGER DO August 23, 2024 17:39
[2024-08-23 17:53] LABS: Urine Bacteria None Seen /hpf (None Seen)
[2024-08-23 18:19] LABS: Basophils # (auto) 0 10 ^3/uL (0-0.2); Basophils % (auto) 0.5 % (0.0-2.0); Eosinophils # (auto) 0.1 10 ^3/uL (0-0.8); Eosinophils % (auto) 1.8 % (0.0-7.0); Hematocrit 41.2 % (41.0-53.0); Hemoglobin 14.2 g/dL (13.5-17.5); Lymphocytes # (auto) 1.1 10 ^3/uL (0.4-5.4); Lymphocytes % (auto) 23.9 % (10.0-50.0); Mean Corpuscular Hemoglobin 33.5 pg (28.0-32.0); Mean Corpuscular Hgb Conc. 34.3 g/dL (32.0-36.0); Mean Corpuscular Volume 97.5 fL (80.0-100.0); Monocytes # (auto) 0.5 10 ^3/uL (0-1.3); Monocytes % (auto) 11.2 % (0.0-12.0); Neutrophils # (auto) 2.8 10 ^3/uL (1.6-8.6); Neutrophils % (auto) 62.6 % (37.0-80.0); Nucleated Red Blood Cells % 0.1 %; Platelet Count (auto) 202 10^3/uL (140-450); Red Blood Cells 4.23 10^6/uL (4.5-5.90); Red Cell Distribution Width 14.8 % (11.8-14.3); White Blood Cell 4.5 10^3/uL (4.4-10.8)
--- NOTE | 2024-08-23 18:27 | DVH ---
EXAM: CT Abdomen and Pelvis Without Intravenous Contrast CLINICAL INDICATION: abd pain TECHNIQUE: Axial computed tomography images of the abdomen and pelvis without intravenous contrast. This CT exam was performed using one or more of the following dose reduction techniques: automated exposure control, adjustment of the mA and/or kV according to patient size, and/or use of iterative r econstruction technique. CONTRAST: RADIATION DOSE: CTDIvol = 22.49 mGy, DLP = 1260.32 mGy-cm COMPARISON: CT CT AB PEL WO CON-NO ORAL OR IV on DOS: 08/01/24, CT CT AB PEL WO CON-NO ORAL OR IV on DOS: 07/10/24, CT CT AB PEL WO CON-NO ORAL OR IV on DOS: 05/16/24, CT CT AB PEL WO CON-NO ORAL OR IV on DOS: 03/26/24, CT CT AB PEL WO CON-NO ORAL OR IV on DOS: 11/12/23 FINDINGS: LUNG BASES: Unremarkable. No mass. No consolidation. MEDIASTINUM: Small esophageal hiatal hernia. ABDOMEN: LIVER: Fatty infiltration of the liver. GALLBLADDER AND BILE DUCTS: Unremarkable. No calcified stones. No ductal dilation. PANCREAS: Unremarkable. No ductal dilation. SPLEEN: Unremarkable. No splenomegaly. ADRENALS: Unremarkable. No mass. KIDNEYS AND URETERS: Unremarkable. No obstructing stones. No hydronephrosis. STOMACH AND BOWEL: Fecal retention in the colon consistent with constipation. No obstruction. No mucosal thickening. PELVIS: APPENDIX: No findings to suggest acute appendicitis. BLADDER: Unremarkable. No stones. REPRODUCTIVE: Unremarkable as visualized. ABDOMEN and PELVIS: INTRAPERITONEAL SPACE: Unremarkable. No free air. No significant fluid collection. BONES/JOINTS: No acute fracture. No dislocation. SOFT TISSUES: Umbilical hernia containing fat. Left inguinal hernia. VASCULATURE: Unremarkable. No abdominal aortic aneurysm. LYMPH NODES: Unremarkable. No enlarged lymph nodes. OTHER FINDINGS: . . . IMPRESSION: 1. Small esophageal hiatal hernia. 2. Fecal retention in the colon consistent with constipation. 3. Umbilical hernia containing fat. 4. Left inguinal hernia.
[2024-08-23 18:43] LABS: Urine Blood Negative /uL (Negative); Urine Clarity Clear (Clear); Urine Color Yellow (Yellow); Urine Mucus FEW (None Seen); Urine Protein, UAD Negative (Negative); Urine Specific Gravity 1.025 (1.001-1.035); Urine Squamous Epithelial Cell None Seen /hpf (<5); Urine Urobilinogen Normal (Negative); Urine WBC < 1 /HPF (0-3); Urine pH 5.5 (5.0-9.0)
[2024-08-23 19:03] LABS: Alanine Aminotransferase 39 U/L (7-40); Albumin 4.7 g/dL (3.2-4.8); Alkaline Phosphatase 73 U/L (46-116); Anion Gap 11 (5-15); Aspartate Aminotransferase 25 U/L (13-40); BUN/Creatinine Ratio 16.4 (10.0-20.0); Blood Urea Nitrogen 22 mg/dL (9-23); Calcium 9.4 mg/dL (8.7-10.4); Carbon Dioxide 22 mmol/L (20-31); Lipase 35 U/L (12-53); Potassium 4.2 mmol/L (3.5-5.1); Sodium 141 mmol/L (136-145); Total Protein 6.7 g/dL (5.7-8.2)
[2024-08-23 19:04] LABS: Bilirubin, Total 0.6 mg/dL (0.2-1.0); Chloride 108 mmol/L (98-107); Glucose 109 mg/dL (74-106)
[2024-08-23 20:05] VITALS: BP 117/76; PULSE 65; RESP 16; TEMP 98.8; O2SAT 97
[2024-08-23] MEDS: SUCRALFATE 1 GM TAB PO ONE (20:17)
[2024-08-23] MEDS: PANTOPRAZOLE 40 MG TAB PO ONE (20:18)
[2024-08-23] MEDS: LIDOCAINE VISCOUS 2% 15ML UD PO ONE (20:19)
--- NOTE | 2024-08-24 06:54 | ECG ---
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
== END 2024-08-23 20:21 | disposition home or self-care (01) ==
LOC: ER 17:16
DX: R10.84 Generalized abdominal pain (principal); F41.9 Anxiety disorder, unspecified; J45.909 Unspecified asthma, uncomplicated; I48.91 Unspecified atrial fibrillation; E78.5 Hyperlipidemia, unspecified; I10 Essential (primary) hypertension; M19.90 Unspecified osteoarthritis, unspecified site; Z79.899 Other long term (current) drug therapy; Z88.0 Allergy status to penicillin; Z88.5 Allergy status to narcotic agent; Z88.6 Allergy status to analgesic agent
CPT/HCPCS: 36415; 74176; 80053; 81001; 82947; 82962; 83605; 83690; 83880; 84484; 85025; 93005

== ENCOUNTER 2024-08-23 20:22 | Emergency (ER) | payer OTHER ==
[~2024-08-23] VITALS: Ht 175.3 cm; Wt 88.2 kg
--- NOTE | 2024-08-23 21:18 | ED.PDOC ---
HPI Comments 49 Year old Male presents to the ED with a prior Hx of A-Fib associated to the c/c of Chest pain and burning ABD pain with no alleviating factors at this time. Pt states that the chest pain started about 10x mins ago after being discharged for this facility. Pt states started to pick back up again as he was filling out his discharge paper work. Pt notes that he also does not have a ride home at this time. Pt has a PMHx of A-Fib, CHF, high lipids, and GERD. Pt Denies, any sick contact or Trauma at this period in time. Chief Complaint: Chest Pain Time Seen by MD: 21:13 Primary Care Provider: TANA Reviewed Notes: Nurses Notes, Medications, Allergies Allergies: Coded Allergies: Acetaminophen (Verified Allergy, Unknown, 03/02/23) Amoxicillin (Verified Allergy, Unknown, 03/02/23) Codeine (Verified Allergy, Unknown, 03/02/23) Hydrocodone (Verified Allergy, Unknown, 03/24/24) Ibuprofen (Verified Allergy, Unknown, 03/02/23) Penicillins (Verified Allergy, Unknown, 03/02/23) Statins (Verified Allergy, Unknown, 03/02/23) Tramadol (Verified Allergy, Unknown, 03/02/23) Uncoded Allergies: WALNUTS (Allergy, Unknown, 03/02/23) Home Meds Active Scripts Sucralfate (CARAFATE SUSP) 1 Gm/10 Ml Ss, 10 ML PO QID PRN, #600 ML 1 Refill prn abdominal pain Prov:YOSHI BONNER MD 08/01/24 Ondansetron Odt 4MG Tab (ZOFRAN PO) 4 Mg Tb, 4 MG PO TID PRN, #30 TAB prn nausea or vomiting ODT TAB-DISSOLVE IN MOUTH, THEN SWALLOW Prov:YOSHI BONNER MD 08/01/24 Dicyclomine Hcl (BENTYL CAPSULE) 10 Mg Cp, 2 CAP PO Q6HP PRN, #90 CAP 11 Refills prn abdominal pain Prov:YOSHI BONNER MD 08/01/24 Gabapentin (Gabapentin) 300 Mg Cap, 1 CAP PO TID, #90 CAP 5 Refills Prov:MCKENNA ROTH JIG GRINDER SET UP OPERATOR 05/24/24 Amiodarone HCl (Amiodarone HCl) 200 Mg Tab, 200 MG PO BID for 30 Days, #60 TAB Prov:MCKENNA ROTH JIG GRINDER SET UP OPERATOR 05/24/24 Sucralfate (Sucralfate) 1 Gm Tab, 1 TAB PO QID for 30 Days, #120 TAB Prov:MCKENNA ROTH JIG GRINDER SET UP OPERATOR 11/15/23 Pantoprazole Sodium Sesquihydr (Pantoprazole Sodium) 40 Mg Tab, 1 TAB PO BID for 30 Days, #60 TAB Prov:MCKENNA ROTH JIG GRINDER SET UP OPERATOR 11/15/23 Reported Medications Evolocumab (Repatha Sureclick) 140 Mg/Ml Inj, SC 1 PRE-FILLED PEN EVERY 2 WEEKS 07/11/24 Pravastatin Sodium (PRAVACHOL TABLET) 20 Mg Tb, 40 MG PO DAILY 07/11/24 Ketoconazole (Ketoconazole) 2 % Cre, 1 APPLIC TOP BID, #60 GRAMS 1 Refill 05/18/24 Clotrimazole (Clotrimazole) 1 % Cre, 1 APPLIC TOP Q12HR for 30 Days, APPLIC 05/18/24 Atogepant (Qulipta) 60 Mg Tab, 60 MG PO DAILY, TAB 05/18/24 Labetalol HCl (Labetalol Hydrochloride) 200 Mg Tab, 1 TAB PO BID 03/25/24 Tamsulosin HCl (Tamsulosin Hydrochloride) 0.4 Mg Cap, 0.4 MG PO DAILY, CAP 03/25/24 Beclomethasone Dipropionate (Qvar Redihaler) 80 Mcg/Act Aer, 2 PUFF IN BID, AER 03/25/24 Docusate Sodium (Colace) 100 Mg Cap, 100 MG PO BID PRN for FOR CONSTIPATION, CAP 03/25/24 Albuterol Sulfate (Albuterol Sulfate Hfa) 108 Mcg/Act Aer, 1 PUFF INH Q4HPRN PRN for SHORTNESS OF BREATH 03/25/24 Hydroxyzine Hcl (Hydroxyzine Hcl) 25 Mg Tab, 20 MG PO DAILY PRN for ANXIETY, TAB 03/25/24 Apixaban Base (ELIQUIS) 5 Mg Tab, 5 MG PO BID, TAB 10/12/23 Dicyclomine Hcl (Dicyclomine Hcl) 20 Mg Tab, 10 MG PO BID PRN for ABD MUSCLE SPASM, MG 10/12/23 Information Source: Patient Mode of Arrival: Ambulatory Severity: Moderate Timing: Minutes Duration: Since onset Prehospital treatment: None Location: Chest (L) Quality: Pressure Onset: At Rest Cardiac Risk Factors: HTN PE Risk Factors: None Modifying Factors: Rest Associated Signs and Symptoms: Abdominal Pain Past Medical History PAST MEDICAL HISTORY: AFIB, Anxiety, Arthritis, Asthma, GERD, High Lipids, HTN Surgical History: Denies all surgeries Family History Family History: Reviewed,noncontributory to illness, Unknown Social History Smoker: Non-Smoker Alcohol: Denies ETOH Use Drugs: Denies Drug Use Lives In: Home Constitutional: denies: chills, diaphoresis, fatigue, fever, malaise, sweats, weakness, others EENTM: denies: blurred vision, double vision, ear bleeding, ear discharge, ear drainage, ear pain, ear ringing, eye pain, eye redness, hearing loss, mouth pain, mouth swelling, nasal discharge, nose bleeding, nose congestion, nose pain, photophobia, tearing, throat pain, throat swelling, voice changes, others Respiratory: denies: cough, hemoptysis, orthopnea, SOB at rest, shortness of breath, SOB with excertion, stridor, wheezing, others Cardiovascular: reports: chest pain; denies: dizzy spells, diaphoresis, Dyspnea on exertion, edema, irregular heart beat, left arm pain, lightheadedness, palpitations, PND, syncope, others Gastrointestinal: reports: abdominal pain; denies: abdomen distended, blood streaked bowels, constipated, diarrhea, dysphagia, difficulty swallowing, hematemesis, melena, nausea, poor appetite, poor fluid intake, rectal bleeding, rectal pain, vomiting, others Genitourinary: denies: burning, dysuria, flank pain, frequency, hematuria, incontinence, penile discharge, penile sore, pain, testicle pain, testicle swelling, urgency, others Neurological: denies: dizziness, fainting, headache, left sided numbness, left sided weakness, numbness, paresthesia, pre-existing deficit, right sided numbness, right sided weakness, seizure, speech problems, tingling, tremors, weakness, others Musculoskeletal: denies: back pain, gout, joint pain, joint swelling, muscle pain, muscle stiffness, neck pain, others Integumetry: denies: bruises, change in color, change in hair/nails, dryness, laceration, lesions, lumps, rash, wounds, others Allergic/Immunocompromised: denies: Difficulty Healing, Frequent Infections, Hives, Itching, others Hematologic/Lymphatic: denies: anemia, blood clots, easy bleeding, easy bruising, swollen glands, others Endocrine: denies: excessive hunger, excessive sweating, excessive thirst, excessive urination, flushing, intolerance to cold, intolerance to heat, unexplained weight gain, unexplained weight loss, others Psychiatric: denies: anxiety, bipolar disorder, depression, hopeless, panic disorder, schizophrenia, sleepless, suicidal, others All Other Systems: Reviewed and Negative Physical Exam General Appearance: Mild Distress HEENT: Normal ENT Inspection, Pharynx Normal, TMs Normal Neck: Full Range of Motion, Non-Tender, Normal, Normal Inspection Respiratory: Chest Non-Tender, Lungs Clear, No Accessory Muscle Use, No Respiratory Distress, Normal Breath Sounds Cardiovascular: No JVD, No Murmur, No Gallop, Normal Peripheral Pulses, Regular Rate/Rhythm Breast Exam: Deferred Gastrointestinal: Diffuse, No Organomegaly, No Pulsatile Mass, Normal Bowel Sounds, Soft Genitalia: Deferred Pelvic: Deferred Rectal: Deferred Extremities: No calf tenderness, Normal capillary refill, Normal inspection, Normal range of motion, Non-tender, No pedal edema Musculoskeletal : Apperance: Normal Neurologic: Alert, cigarette seller II-XII nml as Tested, No Motor Deficits, Normal Affect, Normal Mood, No Sensory Deficits Cerebellar Function: Normal Reflexes: Normal Skin: Dry, Normal Color, Warm Lymphatic: No Adenopathy Was a procedure done? Was a procedure done?: No CP Differential Dx Differential Diagnosis: A-fib, A-Flutter, Angina, Hyperventilation, PAC's, Pulmonary Embolus, V-Fib, V-Tach, Other X-Ray, Labs, Meds, VS Vital Signs Date Time Temp Pulse Resp B/P (MAP) Pulse Ox O2 Delivery O2 Flow Rate FiO2 08/24/24 00:00 Room Air* 0 21 08/24/24 00:00 98.2 64 18 140/76 (97) 96 98.2 08/23/24 20:31 98.2 64 18 140/76 (97) 96 98.2 08/23/24 20:27 67 Lab Test 08/23/24 20:51 Range/Units Troponin I High Sensitivity < 3 L </=54 ng/L Time of 1ST Reevaluation: 21:44 Reevaluation 1ST: Unchanged Patient Education/Counseling: Diagnosis, Treatment Family Education/Counseling: No Family Present Departure 1 Departure Time of Disposition: 23:00 Impression: Primary Impression: Chest pain of unknown etiology Additional Impression: Atypical chest pain Disposition: 01 HOME / SELF CARE / HOMELESS Condition: Stable Discharged With: Self Critical Care Note Critical Care Time?: No Stability Stability form required: No Heart Score Heart Score: Heart Score Response (Comments) Value History Slightly Suspicious 0 EKG Normal 0 Age 45-64 1 Risk Factors 1 or 2 risk factors 1 Troponin Normal limit 0 Total 2 I personally scribed for SONG HERNANDEZ MD ([email or web address]) on 08/23/24 at 21:18. Electronically submitted by Jose Roberto Bolanos [email or web address]). SONG HERNANDEZ MD August 23, 2024 21:18
[2024-08-24] VITALS: BP 140/76; PULSE 64; RESP 18; TEMP 98.2; O2SAT 96
--- NOTE | 2024-08-24 06:55 | ECG ---
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
[2024-08-25] MEDS ORDERED: NITR0.4S29 SL (18:40)
== END 2024-08-24 00:09 | disposition home or self-care (01) ==
LOC: ER 20:22
DX: R07.89 Other chest pain (principal); R10.84 Generalized abdominal pain; I48.91 Unspecified atrial fibrillation; I10 Essential (primary) hypertension; E78.5 Hyperlipidemia, unspecified; J45.909 Unspecified asthma, uncomplicated; F41.9 Anxiety disorder, unspecified; M19.90 Unspecified osteoarthritis, unspecified site; Z88.6 Allergy status to analgesic agent; Z88.5 Allergy status to narcotic agent; Z88.0 Allergy status to penicillin; Z79.899 Other long term (current) drug therapy
CPT/HCPCS: 36415; 84484; 93005

== ENCOUNTER 2024-08-25 14:55 | Emergency (ER) | payer OTHER ==
[~2024-08-25] VITALS: Ht 175.3 cm; Wt 88.0 kg
--- NOTE | 2024-08-25 15:40 | DVH ---
INDICATION: Chest pain TECHNIQUE: Frontal view of the chest. COMPARISON: XY CHEST XRAY 1 VIEW on DOS: 07/12/24, XY CHEST PORTABLE on DOS: 07/11/24, XY CHEST PORTABLE on DOS: 07/11/24, XY CHEST XRAY 1 VIEW on DOS: 06/14/24, XY CHEST XRAY 1 VIEW on DOS: 05/23/24 FINDINGS: Findings:. The heart and mediastinal contours are grossly unremarkable. There is no evidence of pleu ral disease. The lungs are clear. The bony structures of the chest are intact without fracture. IMPRESSION: 1. No evidence of acute disease.
[2024-08-25 15:46] LABS: Basophils # (auto) 0 10 ^3/uL (0-0.2); Basophils % (auto) 0.6 % (0.0-2.0); Eosinophils # (auto) 0.1 10 ^3/uL (0-0.8); Eosinophils % (auto) 1.9 % (0.0-7.0); Hematocrit 42.6 % (41.0-53.0); Hemoglobin 14.7 g/dL (13.5-17.5); Lymphocytes # (auto) 0.9 10 ^3/uL (0.4-5.4); Lymphocytes % (auto) 19.6 % (10.0-50.0); Mean Corpuscular Hemoglobin 33.8 pg (28.0-32.0); Mean Corpuscular Hgb Conc. 34.5 g/dL (32.0-36.0); Mean Corpuscular Volume 97.8 fL (80.0-100.0); Monocytes # (auto) 0.5 10 ^3/uL (0-1.3); Monocytes % (auto) 11.2 % (0.0-12.0); Neutrophils % (auto) 66.7 % (37.0-80.0); Nucleated Red Blood Cells % 0.1 %; Platelet Count (auto) 191 10^3/uL (140-450); Red Blood Cells 4.35 10^6/uL (4.5-5.90); Red Cell Distribution Width 14.9 % (11.8-14.3); White Blood Cell 4.5 10^3/uL (4.4-10.8)
[2024-08-25 15:56] LABS: Alanine Aminotransferase 34 U/L (7-40); Albumin 4.8 g/dL (3.2-4.8); Alkaline Phosphatase 73 U/L (46-116); Anion Gap 10 (5-15); Aspartate Aminotransferase 26 U/L (13-40); BUN/Creatinine Ratio 11.5 (10.0-20.0); Bilirubin, Total 0.9 mg/dL (0.2-1.0); Blood Urea Nitrogen 15 mg/dL (9-23); Calcium 9.4 mg/dL (8.7-10.4); Carbon Dioxide 24 mmol/L (20-31); Chloride 106 mmol/L (98-107); Lipase 36 U/L (12-53); Potassium 3.8 mmol/L (3.5-5.1); Sodium 140 mmol/L (136-145); Total Protein 7.2 g/dL (5.7-8.2)
[2024-08-25 15:57] LABS: Glucose 112 mg/dL (74-106)
--- NOTE | 2024-08-25 16:15 | ED.PDOC ---
HPI Comments 49 year old male presents to the ED with a PMHx of CHF, HTN, A-FIB, Asthma, and High Lipids associated to the c/c of substernal CP. Pt states that his CP with associated N/ started around 8am this morning and notes that he has no alleviating factors at this period in time. Patient has a history of chest pain concerns for which he states his automatic print developer has not found the source of. Pt Denies fever, chills, coughing, N/V/D, SOB or other associated symptoms, modifiers, or recent injuries or sick contact that this time. Patient does state he also has an on source history of abdominal pain concerns. Vital signs were stable on arrival. Chief Complaint: Chest Pain Time Seen by MD: 16:11 Primary Care Provider: UNKNOWN Reviewed Notes: Nurses Notes, Medications, Allergies Allergies: Coded Allergies: Acetaminophen (Verified Allergy, Unknown, 03/02/23) Amoxicillin (Verified Allergy, Unknown, 03/02/23) Codeine (Verified Allergy, Unknown, 03/02/23) Hydrocodone (Verified Allergy, Unknown, 03/24/24) Ibuprofen (Verified Allergy, Unknown, 03/02/23) Penicillins (Verified Allergy, Unknown, 03/02/23) Statins (Verified Allergy, Unknown, 03/02/23) Tramadol (Verified Allergy, Unknown, 03/02/23) Uncoded Allergies: WALNUTS (Allergy, Unknown, 03/02/23) Home Meds Active Scripts Sucralfate (CARAFATE SUSP) 1 Gm/10 Ml Ss, 10 ML PO QID PRN, #600 ML 1 Refill prn abdominal pain Prov:YOSHI BONNER MD 08/01/24 Ondansetron Odt 4MG Tab (ZOFRAN PO) 4 Mg Tb, 4 MG PO TID PRN, #30 TAB prn nausea or vomiting ODT TAB-DISSOLVE IN MOUTH, THEN SWALLOW Prov:YOSHI BONNER MD 08/01/24 Dicyclomine Hcl (BENTYL CAPSULE) 10 Mg Cp, 2 CAP PO Q6HP PRN, #90 CAP 11 Refills prn abdominal pain Prov:YOSHI BONNER MD 08/01/24 Gabapentin (Gabapentin) 300 Mg Cap, 1 CAP PO TID, #90 CAP 5 Refills Prov:MCKENNA ROTH NP 05/24/24 Amiodarone HCl (Amiodarone HCl) 200 Mg Tab, 200 MG PO BID for 30 Days, #60 TAB Prov:MCKENNA ROTH SUPERVISOR PLASTIC SHEETS 05/24/24 Sucralfate (Sucralfate) 1 Gm Tab, 1 TAB PO QID for 30 Days, #120 TAB Prov:MCKENNA ROTH SUPERVISOR PLASTIC SHEETS 11/15/23 Pantoprazole Sodium Sesquihydr (Pantoprazole Sodium) 40 Mg Tab, 1 TAB PO BID for 30 Days, #60 TAB Prov:MCKENNA ROTH SUPERVISOR PLASTIC SHEETS 11/15/23 Reported Medications Evolocumab (Repatha Sureclick) 140 Mg/Ml Inj, SC 1 PRE-FILLED PEN EVERY 2 WEEKS 07/11/24 Pravastatin Sodium (PRAVACHOL TABLET) 20 Mg Tb, 40 MG PO DAILY 07/11/24 Ketoconazole (Ketoconazole) 2 % Cre, 1 APPLIC TOP BID, #60 GRAMS 1 Refill 05/18/24 Clotrimazole (Clotrimazole) 1 % Cre, 1 APPLIC TOP Q12HR for 30 Days, APPLIC 05/18/24 Atogepant (Qulipta) 60 Mg Tab, 60 MG PO DAILY, TAB 05/18/24 Labetalol HCl (Labetalol Hydrochloride) 200 Mg Tab, 1 TAB PO BID 03/25/24 Tamsulosin HCl (Tamsulosin Hydrochloride) 0.4 Mg Cap, 0.4 MG PO DAILY, CAP 03/25/24 Beclomethasone Dipropionate (Qvar Redihaler) 80 Mcg/Act Aer, 2 PUFF IN BID, AER 03/25/24 Docusate Sodium (Colace) 100 Mg Cap, 100 MG PO BID PRN for FOR CONSTIPATION, CAP 03/25/24 Albuterol Sulfate (Albuterol Sulfate Hfa) 108 Mcg/Act Aer, 1 PUFF INH Q4HPRN PRN for SHORTNESS OF BREATH 03/25/24 Hydroxyzine Hcl (Hydroxyzine Hcl) 25 Mg Tab, 20 MG PO DAILY PRN for ANXIETY, TAB 03/25/24 Apixaban Base (ELIQUIS) 5 Mg Tab, 5 MG PO BID, TAB 10/12/23 Dicyclomine Hcl (Dicyclomine Hcl) 20 Mg Tab, 10 MG PO BID PRN for ABD MUSCLE SPASM, MG 10/12/23 Information Source: Patient Mode of Arrival: Ambulatory Severity: Moderate Timing: Hours Duration: Since onset, Hours Prehospital treatment: None Location: Substernal Quality: Pressure Onset: At Rest Cardiac Risk Factors: HTN PE Risk Factors: None History of: None Modifying Factors: Nothing Associated Signs and Symptoms: None Past Medical History PAST MEDICAL HISTORY: AFIB, Anxiety, Arthritis, Asthma, GERD, High Lipids, HTN Past Medical History (Other): Chronic abdominal pain concerns. Un-sourced chest pain concerns Surgical History: Denies all surgeries Family History Family History: Reviewed,noncontributory to illness, Unknown Social History Smoker: Non-Smoker Alcohol: Denies ETOH Use Drugs: Denies Drug Use Lives In: Home Constitutional: denies: chills, diaphoresis, fatigue, fever, malaise, sweats, weakness, others EENTM: denies: blurred vision, double vision, ear bleeding, ear discharge, ear drainage, ear pain, ear ringing, eye pain, eye redness, hearing loss, mouth pain, mouth swelling, nasal discharge, nose bleeding, nose congestion, nose pain, photophobia, tearing, throat pain, throat swelling, voice changes, others Respiratory: denies: cough, hemoptysis, orthopnea, SOB at rest, shortness of breath, SOB with excertion, stridor, wheezing, others Cardiovascular: reports: chest pain; denies: dizzy spells, diaphoresis, Dyspnea on exertion, edema, irregular heart beat, left arm pain, lightheadedness, palpitations, PND, syncope, others Gastrointestinal: denies: abdomen distended, abdominal pain, blood streaked bowels, constipated, diarrhea, dysphagia, difficulty swallowing, hematemesis, melena, nausea, poor appetite, poor fluid intake, rectal bleeding, rectal pain, vomiting, others Genitourinary: denies: burning, dysuria, flank pain, frequency, hematuria, incontinence, penile discharge, penile sore, pain, testicle pain, testicle swelling, urgency, others Neurological: denies: dizziness, fainting, headache, left sided numbness, left sided weakness, numbness, paresthesia, pre-existing deficit, right sided numbness, right sided weakness, seizure, speech problems, tingling, tremors, weakness, others Musculoskeletal: denies: back pain, gout, joint pain, joint swelling, muscle pain, muscle stiffness, neck pain, others Integumetry: denies: bruises, change in color, change in hair/nails, dryness, laceration, lesions, lumps, rash, wounds, others Allergic/Immunocompromised: denies: Difficulty Healing, Frequent Infections, Hives, Itching, others Hematologic/Lymphatic: denies: anemia, blood clots, easy bleeding, easy bruising, swollen glands, others Endocrine: denies: excessive hunger, excessive sweating, excessive thirst, excessive urination, flushing, intolerance to cold, intolerance to heat, unexplained weight gain, unexplained weight loss, others Psychiatric: denies: anxiety, bipolar disorder, depression, hopeless, panic disorder, schizophrenia, sleepless, suicidal, others All Other Systems: Reviewed and Negative Physical Exam General Appearance: Moderate Distress ([id number] distress due to chest pain concerns.), Normal HEENT: Normal ENT Inspection, Pharynx Normal, TMs Normal Neck: Full Range of Motion, Non-Tender, Normal, Normal Inspection Respiratory: Lungs Clear, No Accessory Muscle Use, No Respiratory Distress, Normal Breath Sounds, Other (Unable to elicit any additional pain on palpation.) Cardiovascular: No Edema, No JVD, No Murmur, No Gallop, Normal Peripheral Pulses, Regular Rate/Rhythm, Other (Unremarkable cardiac evaluation.) Breast Exam: Deferred Gastrointestinal: No Organomegaly, Non Tender, No Pulsatile Mass, Normal Bowel Sounds, Soft Genitalia: Deferred Pelvic: Deferred Rectal: Deferred Extremities: No calf tenderness, Normal capillary refill, Normal inspection, Normal range of motion, Non-tender, No pedal edema Musculoskeletal : Apperance: Normal Neurologic: Alert, No Motor Deficits, Normal Affect, Normal Mood, No Sensory Deficits Cerebellar Function: Normal Reflexes: Normal Skin: Dry, Normal Color, Warm Lymphatic: No Adenopathy Was a procedure done? Was a procedure done?: No CP Differential Dx Differential Diagnosis: A-fib, A-Flutter, Anxiety / Panic Attack, Atrial Dysrhythmia, AV Block 1st Degree, IN Differential Diagnosis: CHF Differential Diagnosis: Chest Wall Pain X-Ray, Labs, Meds, VS Vital Signs Date Time Temp Pulse Resp B/P (MAP) Pulse Ox O2 Delivery O2 Flow Rate FiO2 08/25/24 18:01 98.4 64 18 129/74 (92) 96 98.4 08/25/24 15:19 99.1 60 16 128/63 (84) 100 99.1 08/25/24 15:01 59 Lab Test 08/25/24 16:25 08/25/24 15:13 Range/Units Troponin I High Sensitivity 3 L 3 L </=54 ng/L White Blood Count 4.5 4.4-10.8 10^3/uL Red Blood Count 4.35 L 4.5-5.90 10^6/uL Hemoglobin 14.7 13.5-17.5 g/dL Hematocrit 42.6 41.0-53.0 % Mean Corpuscular Volume 97.8 80.0-100.0 fL Mean Corpuscular Hemoglobin 33.8 H 28.0-32.0 pg Mean Corpuscular Hemoglobin Concent 34.5 32.0-36.0 g/dL Red Cell Distribution Width 14.9 H 11.8-14.3 % Platelet Count 191 140-450 10^3/uL Mean Platelet Volume 7.8 6.9-10.8 fL Neutrophils (%) (Auto) 66.7 37.0-80.0 % Lymphocytes (%) (Auto) 19.6 10.0-50.0 % Monocytes (%) (Auto) 11.2 0.0-12.0 % Eosinophils (%) (Auto) 1.9 0.0-7.0 % Basophils (%) (Auto) 0.6 0.0-2.0 % Neutrophils # (Auto) 3.0 1.6-8.6 10 ^3/uL Lymphocytes # (Auto) 0.9 0.4-5.4 10 ^3/uL Monocytes # (Auto) 0.5 0-1.3 10 ^3/uL Eosinophils # (Auto) 0.1 0-0.8 10 ^3/uL Basophils # (Auto) 0 0-0.2 10 ^3/uL Nucleated Red Blood Cells 0.1 % Sodium Level 140 136-145 mmol/L Potassium Level 3.8 3.5-5.1 mmol/L Chloride Level 106 98-107 mmol/L Carbon Dioxide Level 24 20-31 mmol/L Anion Gap 10 5-15 Blood Urea Nitrogen 15 9-23 mg/dL Creatinine 1.31 H 0.700-1.30 mg/dL Glomerular Filtration Rate Calc 66 >90 mL/min BUN/Creatinine Ratio 11.5 10.0-20.0 Serum Glucose 112 H 74-106 mg/dL Calcium Level 9.4 8.7-10.4 mg/dL Total Bilirubin 0.9 0.2-1.0 mg/dL Aspartate Amino Transferase (AST) 26 13-40 U/L Alanine Aminotransferase (ALT) 34 7-40 U/L Alkaline Phosphatase 73 46-116 U/L Total Protein 7.2 5.7-8.2 g/dL Albumin 4.8 3.2-4.8 g/dL Lipase 36 12-53 U/L PATIENT: LUIS MIGUEL JOSHI ACCT: [id number] UNIT: [id number] : 1975 LOC: ER ROOM / BED: / AGE / SEX: 49 / M ADM STATUS: REG ER SERVICE [id number] ORDERING PHYSICIAN: APOORVA GILLESPIE PAC PROCEDURE(s): CXRP - CHEST PORTABLE REASON: Chest pain ORDER NUMBER(s): [id number], ACCESSION NUMBER(s): [id number] INDICATION: Chest pain TECHNIQUE: Frontal view of the chest. COMPARISON: XY CHEST XRAY 1 VIEW on DOS: 07/12/24, XY CHEST PORTABLE on DOS: 07/11/24, XY CHEST PORTABLE on DOS: 07/11/24, XY CHEST XRAY 1 VIEW on DOS: 06/14/24, XY CHEST XRAY 1 VIEW on DOS: 05/23/24 FINDINGS: Findings:. The heart and mediastinal contours are grossly unremarkable. There is no evidence of pleural disease. The lungs are clear. The bony structures of the chest are intact without fracture. IMPRESSION: 1. No evidence of acute disease. X-Ray, Labs, Meds, VS Comment All studies performed the ED were evaluated by me personally serum laboratories and urinalysis was unremarkable for any systemic process including unremarkable cardiac markers. EKG reveals sinus rhythm with a rate of 59. Low voltage in precordial leads. IN interval of 181 and QT interval of 428. Chest x-ray was unremarkable for any consolidation or signs of intrapulmonary concerns. Unable to ascertain the cause of the patient's chest pain concerns. Advised with the patient continue follow up with Cardiology for management and evaluation of chest pain issues. Time of 1ST Reevaluation: 18:38 Reevaluation 1ST: Improved Consultation: PCP, Cardiology Patient Education/Counseling: Diagnosis, Treatment Family Education/Counseling: Diagnosis, Treatment, No Family Present Departure 1 Departure Time of Disposition: 18:39 Impression: Primary Impression: Chest pain Disposition: 01 HOME / SELF CARE / HOMELESS Condition: Stable Additional Instructions: Advise utilizing medication as needed for symptomatic chest pain relief. Patient needs to continue follow up with primary care provider and automatic print developer for evaluation of continued chest pain concerns. e-Prescriptions Nitroglycerin (Nitrostat) 0.4 Mg Sub 0.4 MG SL Q12HP PRN, #10 TAB Prov: APOORVA GILLESPIE PAC 08/25/24 Discharged With: Self, Friend Critical Care Note Critical Care Time?: No Stability Stability form required: No Heart Score Heart Score: Heart Score Response (Comments) Value History Slightly Suspicious 0 EKG Repolarization Disturb 1 Age 45-64 1 Risk Factors 1 or 2 risk factors 1 Troponin Normal limit 0 Total 3 I personally scribed for APOORVA GILLESPIE PAC ([email or web address]) on 08/25/24 at 16:15. Electronically submitted by Jose Roberto Bolanos ([email or web address]). I personally scribed for APOORAV GILLESPIE PAC ([email or web address]) on 08/25/24 at 16:16. Electr onically submitted by Jose Roberto Bolanos ([email or web address]). APOORVA GILLESPIE PAC August 25, 2024 16:15
[2024-08-25] MEDS ORDERED: NITR0.4S29 SL (18:40)
[2024-08-25 19:20] VITALS: BP 123/84; PULSE 62; RESP 18; TEMP 99; O2SAT 97
[2024-08-25] MEDS: NITROGLYCERIN 0.4 MG SL TAB SL ONE (19:29)
[2024-08-25] MEDS: KETOROLAC TROMETH 60MG/2ML VIAL IM ONE (19:29)
--- NOTE | 2024-08-29 13:05 | ECG ---
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
== END 2024-08-25 19:46 | disposition home or self-care (01) ==
LOC: ER 14:55
DX: R07.2 Precordial pain (principal); I10 Essential (primary) hypertension; E78.5 Hyperlipidemia, unspecified; K21.9 Gastro-esophageal reflux disease without esophagitis; F41.9 Anxiety disorder, unspecified; I48.91 Unspecified atrial fibrillation; J45.909 Unspecified asthma, uncomplicated; M19.90 Unspecified osteoarthritis, unspecified site; I11.0 Hypertensive heart disease with heart failure; I50.9 Heart failure, unspecified; Z79.01 Long term (current) use of anticoagulants; Z79.899 Other long term (current) drug therapy; Z98.890 Other specified postprocedural states; Z88.0 Allergy status to penicillin; Z88.5 Allergy status to narcotic agent; Z88.6 Allergy status to analgesic agent; Z88.8 Allergy status to other drugs, medicaments and biological substances
CPT/HCPCS: 36415; 71045; 80053; 83690; 84484; 85025; 93005

== ENCOUNTER 2024-09-05 15:18 | Emergency (ER) | payer OTHER ==
[~2024-09-05] VITALS: Ht 175.3 cm; Wt 90.0 kg
[~2024-09-05 15:18] MED LIST changes: +NITR0.4S29 SL
--- NOTE | 2024-09-05 15:52 | ED.PDOC ---
GI ASSESSMENT HPI Comments 49 year old male well known to this ER presents to the emergency department with a chief complaint of abdominal pain onset 1 day. Patient states he has been experiencing lower abdominal pain for the past day as well as diarrhea, dysuria with burning sensation. Patient was seen at [facility] today. I reviewed results including CBC, CMP, lipase, troponin, UA and chest x-ray, which were unremarkable. Patient states he was given a GI cocktail, and was prescribed medication for diarrhea, came to this ED for a second opinion and additional pain control. Patient has been seen in this ED multiple times for similar complaints, most recently in late August of this year, at which time workup including abdominal CT was essentially unremarkable for anything new. The patient states he is concerned because he has chronic abdominal bloating and pain. He has had difficulty obtaining a pain management appointment. He states he has an appointment with women's ministry director Dr. Pizarro tomorrow (09/06/24), has GI appointment on 09/14/24. PMHx GERD, HLD, HTN, a-fib, anxiety, asthma, arthritis. Denies vomiting, nausea, shortness of breath, hematuria, hematemesis. No other symptoms or modifying factors present at this time. Chief Complaint: Abdominal Pain Time Seen by MD: 15:40 Primary Care Provider: AYLEEN Gabriel Notes: Medications, Allergies Allergies: Coded Allergies: Acetaminophen (Verified Allergy, Unknown, 03/02/23) Amoxicillin (Verified Allergy, Unknown, 03/02/23) Codeine (Verified Allergy, Unknown, 03/02/23) Hydrocodone (Verified Allergy, Unknown, 03/24/24) Ibuprofen (Verified Allergy, Unknown, 03/02/23) Penicillins (Verified Allergy, Unknown, 03/02/23) Statins (Verified Allergy, Unknown, 03/02/23) Tramadol (Verified Allergy, Unknown, 03/02/23) Uncoded Allergies: WALNUTS (Allergy, Unknown, 03/02/23) Home Meds Active Scripts Nitroglycerin (Nitrostat) 0.4 Mg Sub, 0.4 MG SL Q12HP PRN, #10 TAB Prov:APOORVA GILLESPIE PAC 08/25/24 Sucralfate (CARAFATE SUSP) 1 Gm/10 Ml Ss, 10 ML PO QID PRN, #600 ML 1 Refill prn abdominal pain Prov:YOSHI OBNNER MD 08/01/24 Ondansetron Odt 4MG Tab (ZOFRAN PO) 4 Mg Tb, 4 MG PO TID PRN, #30 TAB prn nausea or vomiting ODT TAB-DISSOLVE IN MOUTH, THEN SWALLOW Prov:YOSHI BONNER MD 08/01/24 Dicyclomine Hcl (BENTYL CAPSULE) 10 Mg Cp, 2 CAP PO Q6HP PRN, #90 CAP 11 Refills prn abdominal pain Prov:YOSHI BONNER MD 08/01/24 Gabapentin (Gabapentin) 300 Mg Cap, 1 CAP PO TID, #90 CAP 5 Refills Prov:MCKENNA ROTH Tena PHYSICIAN SPECIALIST 05/24/24 Amiodarone HCl (Amiodarone HCl) 200 Mg Tab, 200 MG PO BID for 30 Days, #60 TAB Prov:MCKENNA ROTH Tena PHYSICIAN SPECIALIST 05/24/24 Sucralfate (Sucralfate) 1 Gm Tab, 1 TAB PO QID for 30 Days, #120 TAB Prov:GONZALEZMCKENNA M PHYSICIAN SPECIALIST 11/15/23 Pantoprazole Sodium Sesquihydr (Pantoprazole Sodium) 40 Mg Tab, 1 TAB PO BID for 30 Days, #60 TAB Prov:MCKENNA ROTH Tena PHYSICIAN SPECIALIST 11/15/23 Reported Medications Evolocumab (Repatha Sureclick) 140 Mg/Ml Inj, SC 1 PRE-FILLED PEN EVERY 2 WEEKS 07/11/24 Pravastatin Sodium (PRAVACHOL TABLET) 20 Mg Tb, 40 MG PO DAILY 07/11/24 Ketoconazole (Ketoconazole) 2 % Cre, 1 APPLIC TOP BID, #60 GRAMS 1 Refill 05/18/24 Clotrimazole (Clotrimazole) 1 % Cre, 1 APPLIC TOP Q12HR for 30 Days, APPLIC 05/18/24 Atogepant (Qulipta) 60 Mg Tab, 60 MG PO DAILY, TAB 05/18/24 Labetalol HCl (Labetalol Hydrochloride) 200 Mg Tab, 1 TAB PO BID 03/25/24 Tamsulosin HCl (Tamsulosin Hydrochloride) 0.4 Mg Cap, 0.4 MG PO DAILY, CAP 03/25/24 Beclomethasone Dipropionate (Qvar Redihaler) 80 Mcg/Act Aer, 2 PUFF IN BID, AER 03/25/24 Docusate Sodium (Colace) 100 Mg Cap, 100 MG PO BID PRN for FOR CONSTIPATION, CAP 03/25/24 Albuterol Sulfate (Albuterol Sulfate Hfa) 108 Mcg/Act Aer, 1 PUFF INH Q4HPRN PRN for SHORTNESS OF BREATH 03/25/24 Hydroxyzine Hcl (Hydroxyzine Hcl) 25 Mg Tab, 20 MG PO DAILY PRN for ANXIETY, TAB 03/25/24 Apixaban Base (ELIQUIS) 5 Mg Tab, 5 MG PO BID, TAB 10/12/23 Dicyclomine Hcl (Dicyclomine Hcl) 20 Mg Tab, 10 MG PO BID PRN for ABD MUSCLE SPASM, MG 10/12/23 Information Source: Patient Mode of Arrival: Ambulatory Timing: Days Duration: Since onset Prehospital treatment: None Quality: Sharp Vomitus: None Stool: Watery Severity: Moderate Recent: None Recent Hx of: None Pain Location: Other (lower abdomen ) Modifying Factors: Nothing Associated sign and symptoms: Diarrhea, Abdominal Pain Past Medical History PAST MEDICAL HISTORY: AFIB, Anxiety, Arthritis, Asthma, GERD, High Lipids, HTN Surgical History: Denies all surgeries Family History Family History: Reviewed,noncontributory to illness, Unknown Social History Smoker: Non-Smoker Alcohol: Denies ETOH Use Drugs: Denies Drug Use Lives In: Home All Other Systems: Reviewed and Negative (as per HPI) Physical Exam General Appearance: No Apparent Distress HEENT: Other (Pupils and face symmetric. Moist mucous membranes.) Neck: Full Range of Motion, Normal Inspection Respiratory: Lungs Clear, No Accessory Muscle Use, No Respiratory Distress, Normal Breath Sounds Cardiovascular: No Edema, No JVD, Regular Rate/Rhythm Breast Exam: Deferred Gastrointestinal: Soft, Other (Palpation of the abdomen does not change the pain.) Genitalia: Deferred Pelvic: Deferred Rectal: Deferred Extremities: Normal range of motion, Non-tender Neurologic: Alert (Oriented x4), Normal Affect, Other (Anxious. Ambulatory.) Cerebellar Function: NOT DONE Reflexes: NOT DONE Skin: Dry, Normal Color, Warm Lymphatic: NOT DONE Was a procedure done? Was a procedure done?: No GI differential Dx Differential Diagnosis: Diverticular disease, Gastritis/PUD, Gastroenteritis, Inflammatory BD, Bacterial, Parasitic, Viral, Malnutrition, Stress Ulcer X-Ray, Labs, Meds, VS Vital Signs Date Time Temp Pulse Resp B/P (MAP) Pulse Ox O2 Delivery O2 Flow Rate FiO2 09/05/24 15:28 98.8 61 20 148/81 (103) 97 98.8 X-Ray, Labs, Meds, VS Comment 49-year-old male with a history of anxiety, GERD, chronic abdominal pain, hypertension, AFib, dyslipidemia, complaining of an exacerbation of chronic abdominal pain. Vitals remarkable for BP 148/81 Exam unremarkable Patient has had multiple CT scans here and at many other facilities. I do not feel repeating a CT scan today will change the current management. I have seen this patient in the past when he has been seen at multiple emergency departments on the same day. He had an unremarkable lab workup at [facility] today, which I reviewed. He was also prescribed diphenoxylate/atropine, which he has with him. Today he is requesting additional pain medication, which I ordered. I will prescribe oral antibiotics to cover possible bacterial enteritis. I had an extensive conversation with the patient (as I have had in the past) regarding the need for close follow-up with his sports management internship and persistence in obtaining a pain management appointment. Patient expressed understanding, however stated he was considering going to [facility] today for another opinion. Patient treated with the following in the ED: Morphine 2 mg IM, Bentyl 20 mg IM, meclizine 25 mg p.o., Zofran ODT 4 mg p.o. On re-evaluation, patient states pain has improved. Vitals were stable. He appears stable for discharge with close follow-up with his GI specialist. Rx Tums, Cipro, Flagyl Time of 1ST Reevaluation: 16:10 Reevaluation 1ST: Unchanged Time of 2ND Reevaluation: 17:00 Reevaluation 2ND: Improved Patient Education/Counseling: Diagnosis, Treatment, Prognosis Family Education/Counseling: No Family Present Departure 1 Departure Time of Disposition: 17:00 Impression: Primary Impression: Acute exacerbation of chronic abdominal pain Additional Impression: Diarrhea Qualified Codes: R19.7 - Diarrhea, unspecified Disposition: 01 HOME / SELF CARE / HOMELESS Condition: Stable Additional Instructions: I have prescribed antibiotics to cover a possible bacterial intestinal infection, as well as Tums. Continue your other current medications as directed. Follow-up with your sports management internship as soon as possible. Continue to try to obtain a pain management appointment as soon as possible. e-Prescriptions Metronidazole (Metronidazole) 500 Mg Tab 500 MG PO TID, #21 TAB Prov: YOSHI BONNER MD 09/05/24 Ciprofloxacin Hcl (Cipro) 500 Mg Tab 1 TAB PO BID for 7 Days, #14 TAB Prov: YOSHI BONNER MD 09/05/24 Calcium Carbonate (Tums) 500 Mg Chw 2-3 TAB PO QHSP PRN, #90 TAB.CHEW prn abdominal pain Prov: YOSHI BONNER MD 09/05/24 Discharged With: Self Critical Care Note Critical Care Time?: No Stability Stability form required: No Heart Score Heart Score: Heart Score Response (Comments) Value History N/A 0 EKG N/A 0 Age N/A 0 Risk Factors N/A 0 Troponin N/A 0 Total 0 I personally scribed for YOSHI BONNER MD ([email or web address]) on 09/05/24 at 15:52. Electronically submitted by Luann Rogers ([email or web address]). YOSHI BONNER MD Sep 05, 2024 15:52
[2024-09-05] MEDS ORDERED: MET500T PO (16:43)
[2024-09-05] MEDS ORDERED: CALC500C3 PO (16:43)
[2024-09-05] MEDS ORDERED: CIPR-173 PO (16:43)
[2024-09-05] MEDS: ONDANSETRON ODT 4 MG TAB PO ONE (19:23)
[2024-09-05] MEDS: MECLIZINE HCL 25 MG TAB PO ONE (19:23)
[2024-09-05] MEDS: DICYCLOMINE HCL (10MG/ML) 2 ML AMPULE IM ONE (19:24)
[2024-09-05] MEDS: MORPHINE SULFATE INJ 2 MG/ml SYRG IM ONE (19:24)
[2024-09-05] MEDS: MORPHINE SULFATE 4 MG/ML SYR/VIAL ONE (19:31)
[2024-09-05 19:41] VITALS: BP 124/82; PULSE 61; RESP 16; TEMP 98.1; O2SAT 96
== END 2024-09-05 19:48 | disposition home or self-care (01) ==
LOC: ER 15:18
DX: G89.29 Other chronic pain (principal); R19.7 Diarrhea, unspecified; I48.91 Unspecified atrial fibrillation; F41.9 Anxiety disorder, unspecified; E78.5 Hyperlipidemia, unspecified; I10 Essential (primary) hypertension; J45.909 Unspecified asthma, uncomplicated; M19.90 Unspecified osteoarthritis, unspecified site; Z88.8 Allergy status to other drugs, medicaments and biological substances; Z88.6 Allergy status to analgesic agent; Z88.5 Allergy status to narcotic agent; Z88.0 Allergy status to penicillin; Z79.899 Other long term (current) drug therapy
CPT/HCPCS: 96372; 99284; J0500; J2270; J8597; Q0162

== ENCOUNTER 2024-10-26 16:10 | Inpatient (IN) | payer OTHER ==
[~2024-10-26] VITALS: Ht 175.3 cm; Wt 95.5 kg
[~2024-10-26 16:10] MED LIST changes: +CALC500C3 PO; +CIPR-173 PO; +MET500T PO
--- NOTE | 2024-10-26 17:01 | ED.PDOC ---
History of Present Illness HPI Comments 49-year-old male came to the ER stating that he has been having diarrhea since yesterday watery. Continues to this morning. States that he does have a history of hypertension atrial fibrillation. Denies abdominal pain nausea vomiting. He states he started a new medication which might have affected his bowel movements. Denies any other symptoms. Time Seen by : 16:13 Primary Care Provider: AYLEEN Reviewed Notes: Nurses Notes, Medications, Allergies Allergies: Coded Allergies: Acetaminophen (Verified Allergy, Unknown, 03/02/23) Amoxicillin (Verified Allergy, Unknown, 03/02/23) Codeine (Verified Allergy, Unknown, 03/02/23) Hydrocodone (Verified Allergy, Unknown, 03/24/24) Ibuprofen (Verified Allergy, Unknown, 03/02/23) Penicillins (Verified Allergy, Unknown, 03/02/23) Statins (Verified Allergy, Unknown, 03/02/23) Tramadol (Verified Allergy, Unknown, 03/02/23) Uncoded Allergies: WALNUTS (Allergy, Unknown, 03/02/23) Home Meds Active Scripts Metronidazole (Metronidazole) 500 Mg Tab, 500 MG PO TID, #21 TAB Prov:YOSHI BONNER MD 09/05/24 Ciprofloxacin Hcl (Cipro) 500 Mg Tab, 1 TAB PO BID for 7 Days, #14 TAB Prov:YOSHI BONNER MD 09/05/24 Calcium Carbonate (Tums) 500 Mg Chw, 2-3 TAB PO QHSP PRN, #90 TAB.CHEW prn abdominal pain Prov:YOSHI BONNER MD 09/05/24 Nitroglycerin (Nitrostat) 0.4 Mg Sub, 0.4 MG SL Q12HP PRN, #10 TAB Prov:APOORVA GILLESPIE PAC 08/25/24 Sucralfate (CARAFATE SUSP) 1 Gm/10 Ml Ss, 10 ML PO QID PRN, #600 ML 1 Refill prn abdominal pain Prov:YOSHI BONNER MD 08/01/24 Ondansetron Odt 4MG Tab (ZOFRAN PO) 4 Mg Tb, 4 MG PO TID PRN, #30 TAB prn nausea or vomiting ODT TAB-DISSOLVE IN MOUTH, THEN SWALLOW Prov:YOSHI BONNER MD 08/01/24 Dicyclomine Hcl (BENTYL CAPSULE) 10 Mg Cp, 2 CAP PO Q6HP PRN, #90 CAP 11 Refills prn abdominal pain Prov:YOSHI BONNER MD 08/01/24 Gabapentin (Gabapentin) 300 Mg Cap, 1 CAP PO TID, #90 CAP 5 Refills Prov:MCKENNA ROTH RADIO MECHANIC APPRENTICE 05/24/24 Amiodarone HCl (Amiodarone HCl) 200 Mg Tab, 200 MG PO BID for 30 Days, #60 TAB Prov:MCKENNA ROTH RADIO MECHANIC APPRENTICE 05/24/24 Sucralfate (Sucralfate) 1 Gm Tab, 1 TAB PO QID for 30 Days, #120 TAB Prov:MCKENNA ROTH RADIO MECHANIC APPRENTICE 11/15/23 Pantoprazole Sodium Sesquihydr (Pantoprazole Sodium) 40 Mg Tab, 1 TAB PO BID for 30 Days, #60 TAB Prov:MCKENNA ROTH RADIO MECHANIC APPRENTICE 11/15/23 Reported Medications Evolocumab (Repatha Sureclick) 140 Mg/Ml Inj, SC 1 PRE-FILLED PEN EVERY 2 WEEKS 07/11/24 Pravastatin Sodium (PRAVACHOL TABLET) 20 Mg Tb, 40 MG PO DAILY 07/11/24 Ketoconazole (Ketoconazole) 2 % Cre, 1 APPLIC TOP BID, #60 GRAMS 1 Refill 05/18/24 Clotrimazole (Clotrimazole) 1 % Cre, 1 APPLIC TOP Q12HR for 30 Days, APPLIC 05/18/24 Atogepant (Qulipta) 60 Mg Tab, 60 MG PO DAILY, TAB 05/18/24 Labetalol HCl (Labetalol Hydrochloride) 200 Mg Tab, 1 TAB PO BID 03/25/24 Tamsulosin HCl (Tamsulosin Hydrochloride) 0.4 Mg Cap, 0.4 MG PO DAILY, CAP 03/25/24 Beclomethasone Dipropionate (Qvar Redihaler) 80 Mcg/Act Aer, 2 PUFF IN BID, AER 03/25/24 Docusate Sodium (Colace) 100 Mg Cap, 100 MG PO BID PRN for FOR CONSTIPATION, CAP 03/25/24 Albuterol Sulfate (Albuterol Sulfate Hfa) 108 Mcg/Act Aer, 1 PUFF INH Q4HPRN PRN for SHORTNESS OF BREATH 03/25/24 Hydroxyzine Hcl (Hydroxyzine Hcl) 25 Mg Tab, 20 MG PO DAILY PRN for ANXIETY, TAB 03/25/24 Apixaban Base (ELIQUIS) 5 Mg Tab, 5 MG PO BID, TAB 10/12/23 Dicyclomine Hcl (Dicyclomine Hcl) 20 Mg Tab, 10 MG PO BID PRN for ABD MUSCLE SPASM, MG 10/12/23 Information Source: Patient Mode of Arrival: Ambulatory Severity: Moderate Timing: Days Duration: Since onset Past Medical History PAST MEDICAL HISTORY: AFIB, Anxiety, Arthritis, Asthma, GERD, High Lipids, HTN Surgical History: Denies all surgeries Family History Family History: Reviewed,noncontributory to illness, Unknown Social History Smoker: Non-Smoker Alcohol: Denies ETOH Use Drugs: Denies Drug Use Lives In: Home Constitutional: denies: chills, diaphoresis, fatigue, fever, malaise, sweats, weakness, others EENTM: denies: blurred vision, double vision, ear bleeding, ear discharge, ear drainage, ear pain, ear ringing, eye pain, eye redness, hearing loss, mouth pain, mouth swelling, nasal discharge, nose bleeding, nose congestion, nose pain, photophobia, tearing, throat pain, throat swelling, voice changes, others Respiratory: denies: cough, hemoptysis, orthopnea, SOB at rest, shortness of breath, SOB with excertion, stridor, wheezing, others Cardiovascular: denies: chest pain, dizzy spells, diaphoresis, Dyspnea on exertion, edema, irregular heart beat, left arm pain, lightheadedness, palpitations, PND, syncope, others Gastrointestinal: reports: diarrhea; denies: abdomen distended, abdominal pain, blood streaked bowels, constipated, dysphagia, difficulty swallowing, hematemesis, melena, nausea, poor appetite, poor fluid intake, rectal bleeding, rectal pain, vomiting, others Genitourinary: denies: burning, dysuria, flank pain, frequency, hematuria, incontinence, penile discharge, penile sore, pain, testicle pain, testicle swelling, urgency, others Neurological: denies: dizziness, fainting, headache, left sided numbness, left sided weakness, numbness, paresthesia, pre-existing deficit, right sided numbness, right sided weakness, seizure, speech problems, tingling, tremors, weakness, others Musculoskeletal: denies: back pain, gout, joint pain, joint swelling, muscle pain, muscle stiffness, neck pain, others Integumetry: denies: bruises, change in color, change in hair/nails, dryness, laceration, lesions, lumps, rash, wounds, others Allergic/Immunocompromised: denies: Difficulty Healing, Frequent Infections, Hives, Itching, others Hematologic/Lymphatic: denies: anemia, blood clots, easy bleeding, easy bruising, swollen glands, others Endocrine: denies: excessive hunger, excessive sweating, excessive thirst, excessive urination, flushing, intolerance to cold, intolerance to heat, unexplained weight gain, unexplained weight loss, others Psychiatric: denies: anxiety, bipolar disorder, depression, hopeless, panic disorder, schizophrenia, sleepless, suicidal, others Physical Exam General Appearance: Moderate Distress HEENT: Normal ENT Inspection, Pharynx Normal, TMs Normal Neck: Full Range of Motion, Non-Tender, Normal, Normal Inspection Respiratory: Chest Non-Tender, Lungs Clear, No Accessory Muscle Use, No Respiratory Distress, Normal Breath Sounds Cardiovascular: No Edema, No JVD, No Murmur, No Gallop, Normal Peripheral Pulses, Regular Rate/Rhythm Breast Exam: Deferred Gastrointestinal: No Organomegaly, Non Tender, No Pulsatile Mass, Normal Bowel Sounds, Soft Genitalia: Deferred Pelvic: Deferred Rectal: Deferred Extremities: No calf tenderness, Normal capillary refill, Normal inspection, Normal range of motion, Non-tender, No pedal edema Musculoskeletal : Apperance: Normal Neurologic: Alert, statistician II-XII nml as Tested, No Motor Deficits, Normal Affect, Normal Mood, No Sensory Deficits Cerebellar Function: Normal Reflexes: Normal Skin: Dry, Normal Color, Warm Peripheral Pulses: 3+ Radial (R), 3+ Radial (L) Lymphatic: No Adenopathy Was a procedure done? Was a procedure done?: No Differential Dx Considerations may include: Gastroenteritis Electrolyte imbalance X-Ray, Labs, Meds, VS Patient alert. Complaining of diarrhea. Vitals stable. Answering questions. Establish intravenous access. Was given fluids. Explained to the patient. Continue monitoring. Time of 1ST Reevaluation: 17:00 Reevaluation 1ST: Unchanged Patient Education/Counseling: Diagnosis, Treatment, Prognosis Family Education/Counseling: No Family Present SEPSIS Sepsis Screen Physician Orders Troponin-I Hs (10/26/24 16:35) Complete Blood Count (10/26/24 16:35) Chest Portable (10/26/24 16:35) Urinalysis (10/26/24 16:35) Basic Metabolic Panel (10/26/24 16:35) Departure 1 Departure Time of Disposition: 17:01 Impression: Primary Impression: Gastroenteritis Disposition: ADMITTED INPATIENT Admit to: Med Surg Condition: Guarded Critical Care Note Critical Care Time?: No Stability Stability form required: No Heart Score Heart Score: Heart Score Response (Comments) Value History N/A 0 EKG N/A 0 Age N/A 0 Risk Factors N/A 0 Troponin N/A 0 Total 0 DARRELL BALBUENA MD Oct 26, 2024 17:01
--- NOTE | 2024-10-26 17:02 | DVH ---
CHEST RADIOGRAPH Indication: sob Technique: Single frontal view of the chest was obtained Comparison: XY CHEST PORTABLE on DOS: 08/25/24, XY CHEST XRAY 1 VIEW on DOS: 07/12/24, XY CHEST PORTABLE on DOS: 07/11/24, XY CHEST PORTABLE on DOS: 07/11/24, XY CHEST XRAY 1 VIEW on DOS: 06/14/24 FINDINGS: The cardiac silhouette is enlarged. The lungs demonstrate perihilar airspace opacities. The pulmonary vasculature is prominent. There is no pleural effusion. There is no pneumothorax. IMPRESSION: Cardiomegaly with pulmonary vascular congestion and bilateral perihilar airspace opacities.
[2024-10-26 17:03] LABS: Hematocrit 47.0 % (41.0-53.0); Hemoglobin 16.2 g/dL (13.5-17.5); Mean Corpuscular Hemoglobin 33.7 pg (28.0-32.0); Mean Corpuscular Volume 97.5 fL (80.0-100.0); Nucleated Red Blood Cells % 0.0 %
[2024-10-26 17:13] LABS: Chloride 107 mmol/L (98-107); Potassium 4.7 mmol/L (3.5-5.1); Sodium 144 mmol/L (136-145)
[2024-10-26 17:14] LABS: Anion Gap 7 (5-15); Carbon Dioxide 30 mmol/L (20-31)
[2024-10-26 17:15] LABS: Calcium 10.6 mg/dL (8.7-10.4)
[2024-10-26 17:19] LABS: BUN/Creatinine Ratio 13.0 (10.0-20.0); Blood Urea Nitrogen 19 mg/dL (9-23)
[2024-10-26 17:20] LABS: Glucose 108 mg/dL (74-106)
[2024-10-26] MEDS ORDERED: NITROGLYCERIN 0.4 MG SL TAB SL PRN (17:45)
[2024-10-26] MEDS ORDERED: MORPHINE SULFATE INJ 2 MG/ml SYRG IV PRN (17:45)
[2024-10-26] MEDS ORDERED: ACETAMINOPHEN 325 MG TAB PO PRN (17:45)
[2024-10-26 18:13] LABS: Urine Protein, UAD Negative (Negative)
--- NOTE | 2024-10-26 18:56 | DVHHP2 ---
History of Present Illness History of Present Illness 49-year-old male presenting to the emergency room for diarrhea which is watery since yesterday patient has underlying history H fib and hypertension. Patient already sees Dr. Troy as outpatient and had recent colonoscopy done. Review of Systems Respiratory: Cough, Dry, Shortness of breath, SOB with excertion, Wheezing, Hemoptysis, Pleuritic Pain, Sputum, Wheezing, Other Gastrointestinal: Abdominal Pain, Diarrhea Musculoskeletal: No: other, neck pain, shoulder pain, arm pain, back pain, hand pain, leg pain, foot pain Allergies: Coded Allergies: Acetaminophen (Verified Allergy, Unknown, 03/02/23) Amoxicillin (Verified Allergy, Unknown, 03/02/23) Codeine (Verified Allergy, Unknown, 03/02/23) Hydrocodone (Verified Allergy, Unknown, 03/24/24) Ibuprofen (Verified Allergy, Unknown, 03/02/23) Penicillins (Verified Allergy, Unknown, 03/02/23) Statins (Verified Allergy, Unknown, 03/02/23) Tramadol (Verified Allergy, Unknown, 03/02/23) Uncoded Allergies: WALNUTS (Allergy, Unknown, 03/02/23) Medications Current Medications Medications Dose Ordered Sig/Yesenia Route Start Time Stop Time Status Last Admin Dose Admin Acetaminophen 650 mg Q6HP PRN PO 10/26/24 17:45 UNV Nitroglycerin 0.4 mg Q5MINP PRN SL 10/26/24 17:45 Morphine Sulfate 2 mg Q30M PRN IV 10/26/24 17:45 UNV Ceftriaxone Sodium 50 ml @ 100 mls/hr DAILY@09 IV 10/27/24 09:00 UNV Metronidazole 100 ml @ 100 mls/hr Q8HR IV 10/26/24 22:00 Amiodarone HCl 200 mg BID PO 10/26/24 22:00 UNV Dicyclomine HCl 10 mg Q6HP PRN PO 10/26/24 17:45 UNV Gabapentin 300 mg TID PO 10/26/24 22:00 UNV Labetalol HCl 200 mg BID PO 10/26/24 22:00 UNV Sucralfate 1 gm QID PO 10/26/24 18:00 UNV Tamsulosin HCl 0.4 mg DAILY PO 10/27/24 10:00 UNV Enoxaparin Sodium 90 mg Q12HR SC 10/26/24 22:00 UNV Pantoprazole Sodium 40 mg DAILY IV 10/27/24 10:00 Sodium Chloride 1,000 ml @ 50 mls/hr Q20H IV 10/26/24 18:00 Exam Vital Signs Vital Signs Date Time Temp Pulse Resp B/P (MAP) Pulse Ox O2 Delivery O2 Flow Rate FiO2 10/26/24 18:37 97.9 59 18 142/81 (101) 97 97.9 10/26/24 18:37 Room Air General Appearance: Alert, Oriented X3 Cardiovascular: Regular rate, Normal S1, Normal S2, No murmurs Abdominal: Normal bowel sounds, Other (Distended abdomen) Extremities: No clubbing Skin: No rashes Neuro: Normal gait Labs/Xrays Labs Test 10/26/24 18:00 10/26/24 16:57 Range/Units Urine Color Light-yellow Yellow Urine Clarity Clear Clear Urine pH 5.0 5.0-9.0 Urine Specific [place] 1.018 1.001-1.035 Urine Protein Negative Negative Urine Ketones Negative Negative Urine Blood Negative Negative /uL Urine Nitrite Negative Negative Urine Bilirubin Negative Negative Urine Urobilinogen Normal Negative mg/dL Urine Leukocyte Esterase Negative Negative /uL Urine RBC <1 0 - 3 /hpf Urine Microscopic WBC < 1 0-3 /HPF Urine Squamous Epithelial Cells None seen <5 /hpf Urine Bacteria None seen None Seen /hpf Urine Glucose Normal Normal mg/dL White Blood Count 5.3 4.4-10.8 10^3/uL Red Blood Count 4.82 4.5-5.90 10^6/uL Hemoglobin 16.2 13.5-17.5 g/dL Hematocrit 47.0 41.0-53.0 % Mean Corpuscular Volume 97.5 80.0-100.0 fL Mean Corpuscular Hemoglobin 33.7 H 28.0-32.0 pg Mean Corpuscular Hemoglobin Concent 34.5 32.0-36.0 g/dL Red Cell Distribution Width 14.6 H 11.8-14.3 % Platelet Count 258 140-450 10^3/uL Mean Platelet Volume 7.2 6.9-10.8 fL Neutrophils (%) (Auto) 61.2 37.0-80.0 % Lymphocytes (%) (Auto) 23.1 10.0-50.0 % Monocytes (%) (Auto) 11.3 0.0-12.0 % Eosinophils (%) (Auto) 3.5 0.0-7.0 % Basophils (%) (Auto) 0.9 0.0-2.0 % Neutrophils # (Auto) 3.3 1.6-8.6 10 ^3/uL Lymphocytes # (Auto) 1.2 0.4-5.4 10 ^3/uL Monocytes # (Auto) 0.6 0-1.3 10 ^3/uL Eosinophils # (Auto) 0.2 0-0.8 10 ^3/uL Basophils # (Auto) 0 0-0.2 10 ^3/uL Nucleated Red Blood Cells 0.0 % Sodium Level 144 136-145 mmol/L Potassium Level 4.7 3.5-5.1 mmol/L Chloride Level 107 98-107 mmol/L Carbon Dioxide Level 30 20-31 mmol/L Anion Gap 7 5-15 Blood Urea Nitrogen 19 9-23 mg/dL Creatinine 1.46 H 0.700-1.30 mg/dL Glomerular Filtration Rate Calc 58 >90 mL/min BUN/Creatinine Ratio 13.0 10.0-20.0 Serum Glucose 108 H 74-106 mg/dL Calcium Level 10.6 H 8.7-10.4 mg/dL Troponin I High Sensitivity < 3 L </=54 ng/L SEPSIS Sepsis Screen Date sepsis recognized/suspect: Oct 26, 2024 Time Sepsis recognized/suspect: 1629 Recent Procedure: No On Antibiotic Therapy: No Respiratory Rate >20: No Heart Rate >90: No Temp<36 C (96.8 F) or >38.3 C: No SBP <90 or MAP <65 mmHG: No New Acute Mental Status Change: No Is the patient on CPAP, BIPAP,: No Physician Orders Chest Portable (10/26/24 16:35) Admit (10/26/24 17:43) Allergies (10/26/24 17:43) Code Status (10/26/24 17:43) Full Liq Diet (10/26/24 Dinner) Condition: Fair (10/26/24 17:43) Acetaminophen Tablet (Tylenol Tablet) (10/26/24 17:45) Nitroglycerin Sublingual (Ntrostat Subli (10/26/24 17:45) Morphine Sulfate Injection (10/26/24 17:45) Stat Ekg For Chest Pain (10/26/24 17:43) Notify Md Of Changes From Base (10/26/24 17:43) Cogeneration Operator For 24 Hours (10/26/24 17:43) Emergency Dysrhythmia Protocol (10/26/24 17:43) Rhythm Strips Once Every Shift (10/26/24 17:43) Oxygen By Nasal Cannula (10/26/24 17:43) Ceftriaxone 1gm/50ml D5w (Rocephin) (10/27/24 09:00) Metronidazole 500mg/100ml (Flagyl 500mg/ (10/26/24 22:00) Amiodarone Tablet (Cordarone Tablet) (10/26/24 22:00) Dicyclomine Capsule (Bentyl Capsule) (10/26/24 17:45) Gabapentin Capsule (Neurontin Capsule) (10/26/24 22:00) Labetalol Hcl Tablet (Normodyne Tablet) (10/26/24 22:00) Sucralfate Tab (Carafate Tab) (10/26/24 18:00) Tamsulosin Hydrochloride (Flomax) (10/27/24 10:00) Enoxaparin Sodium (Lovenox) (10/26/24 22:00) *Consult Dr. Erna Troy (10/26/24 17:48) Pantoprazole (Protonix) (10/27/24 10:00) Sodium Chloride 0.9% (10/26/24 18:00) Vital Signs Date Time Temp Pulse Resp B/P (MAP) Pulse Ox O2 Delivery O2 Flow Rate FiO2 10/26/24 18:37 97.9 59 18 142/81 (101) 97 97.9 10/26/24 18:37 59 18 97 Room Air 10/26/24 16:11 98.6 54 20 143/77 (99) 99 98.6 Laboratory Tests Test 10/26/24 16:57 White Blood Count 5.3 10^3/uL (4.4-10.8) Assessment/Plan Assessment/Plan 1. Diarrhea likely from bacterial gastroenteritis GI consult, IV antibiotics, stool culture, stool occult blood, C diff 2. Paroxysmal AFib Cardiology consult, continue home meds 3. Hypertension Continue home meds 4. Depression Continue home meds 5. BPH Plan discussed with: Patient My Orders Orders - [facility]CHNICIAN Procedure Category Date Status Time Admit ADMIT 10/26/24 Transmitted 17:43 Allergies DAVID 10/26/24 In Process 17:43 Code Status CODE 10/26/24 Transmitted 17:43 Full Liq Diet DIET 10/26/24 Transmitted Dinner Condition: Fair DAVID 10/26/24 In Process 17:43 Acetaminophen Tablet PHA 10/26/24 Logged (Tylenol Tablet) 17:45 Nitroglycerin PHA 10/26/24 In Process Sublingual (Ntrostat 17:45 Morphine Sulfate PHA 10/26/24 Logged Injection 17:45 Stat Ekg For Chest [facility] 10/26/24 In Process Pain 17:43 Notify Md Of Changes DAVID 10/26/24 In Process From Base 17:43 Cogeneration Operator For [facility] 10/26/24 In Process 24 Hours 17:43 Emergency Dysrhythmia [facility] 10/26/24 In Process Protocol 17:43 Rhythm Strips Once [facility] 10/26/24 In Process Every Shift 17:43 Oxygen By Nasal RT 10/26/24 Transmitted Cannula 17:43 Ceftriaxone 1gm/50ml PHA 10/27/24 Logged D5w (Rocephin) 09:00 Metronidazole PHA 10/26/24 In Process 500mg/100ml (Flagyl 22:00 Amiodarone Tablet PHA 10/26/24 Logged (Cordarone Tablet) 22:00 Dicyclomine Capsule PHA 10/26/24 Logged (Bentyl Capsule) 17:45 Gabapentin Capsule PHA 10/26/24 Logged (Neurontin Capsule) 22:00 Labetalol Hcl Tablet PHA 10/26/24 Logged (Normodyne Tablet) 22:00 Sucralfate Tab PHA 10/26/24 Logged (Carafate Tab) 18:00 Tamsulosin PHA 10/27/24 Logged Hydrochloride (Flomax) 10:00 Enoxaparin Sodium PHA 10/26/24 Logged (Lovenox) 22:00 *Consult Dr[address] Umanzor CONS 10/26/24 Transmitted [place] 17:48 Pantoprazole PHA 10/27/24 In Process (Protonix) 10:00 Sodium Chloride 0.9% PHA 10/26/24 In Process 18:00 Date of Service: Oct 26, 2024 Billing Provider: VERONICA HAYWOOD MD Common Visit Codes: [id number] INP/OBS CARE (MOD) [facility] Oct 26, 2024 18:56
[2024-10-26 19:09] VITALS: PULSE 89; RESP 20; O2SAT 98
[2024-10-26] MEDS: SODIUM CHLORIDE 0.9% 1,000 ML IV SCH (19:28)
[2024-10-26] MEDS: SUCRALFATE 1 GM TAB PO SCH (20:12)
--- NOTE | 2024-10-26 22:38 | DVHINCON2 ---
Date of service: Oct 26, 2024 Referring Physician Boris Blackmon Reason for Consultation Diarrhoea History of Present Illness 49-year-old male came to the ER stating that he has been having diarrhea since yesterday watery. Continues to this morning. States that he does have a history of hypertension atrial fibrillation. Denies abdominal pain nausea vomiting. He states he started a new medication which might have affected his bowel movements. Denies any other symptoms. I have performed a recent colonoscopy for this patient at [facility] under MAC sedation. The colonoscopy examination was normal except for a small tubular adenoma. Patient was advised to repeat colonoscopy in five years. He had a recent endoscopy this year which had shown mild gastritis. Previous small -bowel follow-through had shown no obstruction. Patient has had similar episodes in the past but with no evidence of colitis. Patient also has chronic pain management issues and is under the care of paint technician Past Medical History AFIB, Anxiety, Arthritis, Asthma, GERD, High Lipids, HTN Family History: Cerebrovascular accident (CVA) G8 MOTHER ([place]) Diabetes mellitus G8 FATHER, Allergies: Coded Allergies: Acetaminophen (Verified Allergy, Unknown, 03/02/23) Amoxicillin (Verified Allergy, Unknown, 03/02/23) Codeine (Verified Allergy, Unknown, 03/02/23) Hydrocodone (Verified Allergy, Unknown, 03/24/24) Ibuprofen (Verified Allergy, Unknown, 03/02/23) Penicillins (Verified Allergy, Unknown, 03/02/23) Statins (Verified Allergy, Unknown, 03/02/23) Tramadol (Verified Allergy, Unknown, 03/02/23) Uncoded Allergies: WALNUTS (Allergy, Unknown, 03/02/23) Home Meds Active Scripts Calcium Carbonate (Tums) 500 Mg Chw, 2-3 TAB PO QHSP PRN, #90 TAB.CHEW prn abdominal pain Prov:YOSHI BONNER MD 09/05/24 Nitroglycerin (Nitrostat) 0.4 Mg Sub, 0.4 MG SL Q12HP PRN, #10 TAB Prov:APOORVA GILLESPIE PAC 08/25/24 Dicyclomine Hcl (BENTYL CAPSULE) 10 Mg Cp, 2 CAP PO Q6HP PRN, #90 CAP 11 Refills prn abdominal pain Prov:YOSHI BONNER MD 08/01/24 Gabapentin (Gabapentin) 300 Mg Cap, 1 CAP PO TID, #90 CAP 5 Refills Prov:MCKENNA ROTH SUPERVISING APPRAISER 05/24/24 Amiodarone HCl (Amiodarone HCl) 200 Mg Tab, 200 MG PO BID for 30 Days, #60 TAB Prov:MCKENNA ROTH SUPERVISING APPRAISER 05/24/24 Pantoprazole Sodium Sesquihydr (Pantoprazole Sodium) 40 Mg Tab, 1 TAB PO BID for 30 Days, #60 TAB Prov:MCKENNA ROTH SUPERVISING APPRAISER 11/15/23 Reported Medications Beclomethasone Dipropionate (Qvar Redihaler) 80 Mcg/Act Aer, 2 PUFF IN BID, AER 03/25/24 Albuterol Sulfate (Albuterol Sulfate Hfa) 108 Mcg/Act Aer, 1 PUFF INH Q4HPRN PRN for SHORTNESS OF BREATH 03/25/24 Apixaban Base (ELIQUIS) 5 Mg Tab, 5 MG PO BID, TAB 10/12/23 Dicyclomine Hcl (Dicyclomine Hcl) 20 Mg Tab, 10 MG PO BID PRN for ABD MUSCLE SPASM, MG 10/12/23 Discontinued Reported Medications Atogepant (Qulipta) 60 Mg Tab, 60 MG PO DAILY, TAB 05/18/24 Current Medications Current Medications Medications (Trade) Dose Ordered Sig/Yesenia Route PRN Reason Start Time Stop Time Status Last Admin Acetaminophen (Tylenol Tablet) 650 mg Q6HP PRN PO PAIN SCALE 1-3 OR TEMP>100.4 10/26/24 17:45 UNV Nitroglycerin (Ntrostat Sublingual) 0.4 mg Q5MINP PRN SL FOR CHEST PAIN 10/26/24 17:45 Morphine Sulfate 2 mg Q30M PRN IV FOR CHEST PAIN 10/26/24 17:45 Ceftriaxone Sodium 50 ml @ 100 mls/hr DAILY@09 IV 10/27/24 09:00 UNV Metronidazole 100 ml @ 100 mls/hr Q8HR IV 10/26/24 22:00 Amiodarone HCl (Cordarone Tablet) 200 mg BID PO 10/26/24 22:00 Dicyclomine HCl (Bentyl Capsule) 10 mg Q6HP PRN PO ABDOMINL Pain 10/26/24 17:45 Gabapentin (Neurontin Capsule) 300 mg TID PO 10/26/24 22:00 Labetalol HCl (Normodyne Tablet) 200 mg BID PO 10/26/24 22:00 Sucralfate (Carafate Tab) 1 gm QID PO 10/26/24 18:00 10/26/24 20:12 Tamsulosin HCl (Flomax) 0.4 mg DAILY PO 10/27/24 10:00 Enoxaparin Sodium (Lovenox) 90 mg Q12HR SC 10/26/24 22:00 UNV Pantoprazole Sodium (Protonix) 40 mg DAILY IV 10/27/24 10:00 Sodium Chloride 1,000 ml @ 50 mls/hr Q20H IV 10/26/24 18:00 Vital Signs Vital Signs Date Time Temp Pulse Resp B/P (MAP) Pulse Ox O2 Delivery O2 Flow Rate FiO2 10/26/24 21:26 98.4 58 16 145/88 (107) 95 98.4 10/26/24 19:58 Room Air* 0 21 Physical Exam General: NAD, AAOX3 Chest: lung andre clear to auscultation Heart: RRR, no murmur Abdomen: Mild-distended, mild lower abdominal tenderness to palpation, +BS Ext no c/c/e Labs/Diagnostic Data Labs Test 10/26/24 18:00 10/26/24 16:57 Range/Units Urine Color Light-yellow Yellow Urine Clarity Clear Clear Urine pH 5.0 5.0-9.0 Urine Specific [place] 1.018 1.001-1.035 Urine Protein Negative Negative Urine Ketones Negative Negative Urine Blood Negative Negative /uL Urine Nitrite Negative Negative Urine Bilirubin Negative Negative Urine Urobilinogen Normal Negative mg/dL Urine Leukocyte Esterase Negative Negative /uL Urine RBC <1 0 - 3 /hpf Urine Microscopic WBC < 1 0-3 /HPF Urine Squamous Epithelial Cells None seen <5 /hpf Urine Bacteria None seen None Seen /hpf Urine Glucose Normal Normal mg/dL White Blood Count 5.3 4.4-10.8 10^3/uL Red Blood Count 4.82 4.5-5.90 10^6/uL Hemoglobin 16.2 13.5-17.5 g/dL Hematocrit 47.0 41.0-53.0 % Mean Corpuscular Volume 97.5 80.0-100.0 fL Mean Corpuscular Hemoglobin 33.7 H 28.0-32.0 pg Mean Corpuscular Hemoglobin Concent 34.5 32.0-36.0 g/dL Red Cell Distribution Width 14.6 H 11.8-14.3 % Platelet Count 258 140-450 10^3/uL Mean Platelet Volume 7.2 6.9-10.8 fL Neutrophils (%) (Auto) 61.2 37.0-80.0 % Lymphocytes (%) (Auto) 23.1 10.0-50.0 % Monocytes (%) (Auto) 11.3 0.0-12.0 % Eosinophils (%) (Auto) 3.5 0.0-7.0 % Basophils (%) (Auto) 0.9 0.0-2.0 % Neutrophils # (Auto) 3.3 1.6-8.6 10 ^3/uL Lymphocytes # (Auto) 1.2 0.4-5.4 10 ^3/uL Monocytes # (Auto) 0.6 0-1.3 10 ^3/uL Eosinophils # (Auto) 0.2 0-0.8 10 ^3/uL Basophils # (Auto) 0 0-0.2 10 ^3/uL Nucleated Red Blood Cells 0.0 % Sodium Level 144 136-145 mmol/L Potassium Level 4.7 3.5-5.1 mmol/L Chloride Level 107 98-107 mmol/L Carbon Dioxide Level 30 20-31 mmol/L Anion Gap 7 5-15 Blood Urea Nitrogen 19 9-23 mg/dL Creatinine 1.46 H 0.700-1.30 mg/dL Glomerular Filtration Rate Calc 58 >90 mL/min BUN/Creatinine Ratio 13.0 10.0-20.0 Serum Glucose 108 H 74-106 mg/dL Calcium Level 10.6 H 8.7-10.4 mg/dL Troponin I High Sensitivity < 3 L </=54 ng/L CXR IMPRESSION: Cardiomegaly with pulmonary vascular congestion and bilateral perihilar airspace opacities. Problems(with codes): (1) Diarrhea (2) Acute exacerbation of chronic abdominal pain (3) Gastritis Plan/Recommendation Assessment plan Patient likely has IBS D related to underlying chronic anxiety, differential diagnosis of colonic wall edema due to fluid overload or medication effect Reconciled medications and removed the medication that could be a trigger factor Advance diet as tolerated ; Imodium as needed No further GI workup at this time Continue to monitor labs Continue to treat symptomatically I will follow up patient with you Plan discussed with: Patient MO MALCOLM MD Oct 26, 2024 22:38
[2024-10-26 23:00] VITALS: BP 142/80; PULSE 73; RESP 20; TEMP 97.8; O2SAT 97
[2024-10-26] MEDS: GABAPENTIN 300 MG CAP PO SCH (23:21)
[2024-10-26] MEDS: AMIODARONE HCL 200 MG TAB PO SCH (23:28)
[2024-10-26] MEDS: ENOXAPARIN SOD 100 MG/1 ML SYRINGE SC SCH (23:29)
[2024-10-26] MEDS: LABETALOL HCL 200 MG TAB PO SCH (23:29)
[2024-10-27] VITALS (8 sets, daily range): BP systolic 108–143; BP diastolic 74–91; PULSE 60–73; RESP 16–20; TEMP 97.7–98.7; O2SAT 95–97
--- NOTE | 2024-10-27 07:57 | DVHINCON2 ---
Date of service: Oct 27, 2024 History of Present Illness HPI Patient is a 49-year-old gentleman who presented with diarrhea. He mentions that his diarrhea was watery throughout the day before presentation. It did have some blood. Cardiology is involved for cardiac aspects of care. Patient is known to our practice from outside and before. Does have history of paroxysmal AFib and is on Eliquis/Multaq as outpatient. Denies any chest pains. Denies shortness of breath. Denies palpitations recently. Home Meds Active Scripts Calcium Carbonate (Tums) 500 Mg Chw, 2-3 TAB PO QHSP PRN, #90 TAB.CHEW prn abdominal pain Prov:YOSHI BONNER MD 09/05/24 Nitroglycerin (Nitrostat) 0.4 Mg Sub, 0.4 MG SL Q12HP PRN, #10 TAB Prov:APOORVA GILLESPIE PAC 08/25/24 Dicyclomine Hcl (BENTYL CAPSULE) 10 Mg Cp, 2 CAP PO Q6HP PRN, #90 CAP 11 Refills prn abdominal pain Prov:YOSHI BONNER MD 08/01/24 Gabapentin (Gabapentin) 300 Mg Cap, 1 CAP PO TID, #90 CAP 5 Refills Prov:MCKENNA ROTH DIE GRINDER 05/24/24 Amiodarone HCl (Amiodarone HCl) 200 Mg Tab, 200 MG PO BID for 30 Days, #60 TAB Prov:MCKENNA ROTH NP 05/24/24 Pantoprazole Sodium Sesquihydr (Pantoprazole Sodium) 40 Mg Tab, 1 TAB PO BID for 30 Days, #60 TAB Prov:MCKENNA ROTH NP 11/15/23 Reported Medications Beclomethasone Dipropionate (Qvar Redihaler) 80 Mcg/Act Aer, 2 PUFF IN BID, AER 03/25/24 Albuterol Sulfate (Albuterol Sulfate Hfa) 108 Mcg/Act Aer, 1 PUFF INH Q4HPRN PRN for SHORTNESS OF BREATH 03/25/24 Apixaban Base (ELIQUIS) 5 Mg Tab, 5 MG PO BID, TAB 10/12/23 Dicyclomine Hcl (Dicyclomine Hcl) 20 Mg Tab, 10 MG PO BID PRN for ABD MUSCLE SPASM, MG 10/12/23 Discontinued Reported Medications Atogepant (Qulipta) 60 Mg Tab, 60 MG PO DAILY, TAB 05/18/24 Past Medical History Others Past medical history includes learning disability, hypertension, paroxysmal AFib (on Eliquis as outpatient), asthma, osteoarthritis, anxiety/depression, BPH, hyperlipidemia (on Repatha as outpatient), migraines, history of vitamin-D deficiency and magnesium deficiency, CKD, GERD, short episodes of SVT and mild mitral valve prolapse. He is allergic to statins and is on Repatha as outpatient. Patient Family History: Cerebrovascular accident (CVA) G8 MOTHER (TREMORS) Diabetes mellitus G8 FATHER, Smoker: No Hx (Negative) Alocohol: None Drugs: None Review of Systems Constitutional: No symptom reported Ears, Nose, & Throat: No symptom reported Pulmonary/Respiratory: No symptom reported Cardiovascular: No symptom reported Gastrointestinal: Abdominal Pain, Diarrhea All Other Systems Fourteen point review of system was performed. Relevant findings as per above and as per HPI. Otherwise negative. H&P Exam Vital Signs Vital Signs Date Time Temp Pulse Resp B/P (MAP) Pulse Ox O2 Delivery O2 Flow Rate FiO2 10/27/24 05:00 97.8 60 18 108/74 (85) 97 97.8 10/26/24 19:58 Room Air* 0 21 General Appeara: Well developed Head Exam: Normal inspection Eye Exam: bilateral eye PERRL Pulmonary/Respiratory: Normal inspection, Lungs clear Cardiovascular/Chest: Normal inspection, Regular rate Peripheral Pulses: 2+ carotid (R), 2+ carotid (L), 2+ femoral (R), 2+ femoral (L), 2+ dorsalis pedis (R), 2+ dorsalis pedis (L), 2+ Radial (R), 2+ Radial (L) Abdominal Exam: Normal bowel sounds, Soft, Other (distended) Neuro/Mental St: Alert, Oriented Appearance: Appropriate appearance Eye contact/ Speech: Cooperative Labs/Xrays Labs Test 10/26/24 18:00 10/26/24 16:57 Range/Units Urine Color Light-yellow Yellow Urine Clarity Clear Clear Urine pH 5.0 5.0-9.0 Urine Specific [place] 1.018 1.001-1.035 Urine Protein Negative Negative Urine Ketones Negative Negative Urine Blood Negative Negative /uL Urine Nitrite Negative Negative Urine Bilirubin Negative Negative Urine Urobilinogen Normal Negative mg/dL Urine Leukocyte Esterase Negative Negative /uL Urine RBC <1 0 - 3 /hpf Urine Microscopic WBC < 1 0-3 /HPF Urine Squamous Epithelial Cells None seen <5 /hpf Urine Bacteria None seen None Seen /hpf Urine Glucose Normal Normal mg/dL White Blood Count 5.3 4.4-10.8 10^3/uL Red Blood Count 4.82 4.5-5.90 10^6/uL Hemoglobin 16.2 13.5-17.5 g/dL Hematocrit 47.0 41.0-53.0 % Mean Corpuscular Volume 97.5 80.0-100.0 fL Mean Corpuscular Hemoglobin 33.7 H 28.0-32.0 pg Mean Corpuscular Hemoglobin Concent 34.5 32.0-36.0 g/dL Red Cell Distribution Width 14.6 H 11.8-14.3 % Platelet Count 258 140-450 10^3/uL Mean Platelet Volume 7.2 6.9-10.8 fL Neutrophils (%) (Auto) 61.2 37.0-80.0 % Lymphocytes (%) (Auto) 23.1 10.0-50.0 % Monocytes (%) (Auto) 11.3 0.0-12.0 % Eosinophils (%) (Auto) 3.5 0.0-7.0 % Basophils (%) (Auto) 0.9 0.0-2.0 % Neutrophils # (Auto) 3.3 1.6-8.6 10 ^3/uL Lymphocytes # (Auto) 1.2 0.4-5.4 10 ^3/uL Monocytes # (Auto) 0.6 0-1.3 10 ^3/uL Eosinophils # (Auto) 0.2 0-0.8 10 ^3/uL Basophils # (Auto) 0 0-0.2 10 ^3/uL Nucleated Red Blood Cells 0.0 % Sodium Level 144 136-145 mmol/L Potassium Level 4.7 3.5-5.1 mmol/L Chloride Level 107 98-107 mmol/L Carbon Dioxide Level 30 20-31 mmol/L Anion Gap 7 5-15 Blood Urea Nitrogen 19 9-23 mg/dL Creatinine 1.46 H 0.700-1.30 mg/dL Glomerular Filtration Rate Calc 58 >90 mL/min BUN/Creatinine Ratio 13.0 10.0-20.0 Serum Glucose 108 H 74-106 mg/dL Calcium Level 10.6 H 8.7-10.4 mg/dL Troponin I High Sensitivity < 3 L </=54 ng/L Assessment/Plan Plan Patient is a 49-year-old gentleman who presented with diarrhea. He mentions that his diarrhea was watery throughout the day before presentation. It did have some blood. Cardiology is involved for cardiac aspects of care. Patient is known to our practice from outside and before. Does have history of paroxysmal AFib and is on Eliquis/Multaq as outpatient. Denies any chest pains. Denies shortness of breath. Denies palpitations recently. Not in acute distress. No carotid bruit. No JVD. Mucosa is pink and wet. Lungs: Clear to auscultation. Cardiac: Regular, no thrill/gallop, Abdomen is soft, distended. There is no gross mass/hepatomegaly. Abdomen is distended. There is no rebound tenderness. Extremities reveal 1+ edema bilaterally. Dorsalis pedis is 2+ bilateral. Past medical history includes learning disability, hypertension, paroxysmal AFib (on Eliquis as outpatient), asthma, osteoarthritis, anxiety/depression, BPH, hyperlipidemia (on Repatha as outpatient), migraines, history of vitamin-D deficiency and magnesium deficiency, CKD, GERD, short episodes of SVT and mild mitral valve prolapse. He is allergic to statins and is on Repatha as outpatient. Nuclear stress test of February 2023 did not reveal ischemia and reported ejection fraction of 77%. Echocardiogram of December 24, 2022 (performed in the office) revealed ejection fraction of 65-70%, mild MR/TR/PI and mild mitral valve prolapse Echocardiogram of October 13, 2023 had revealed ejection fraction of 64%, trace MR/TR/PI Echocardiogram of March 25, 2024 revealed ejection fraction of 65-70 percent, there was no wall motion abnormality. There was trace MR/TR/PI. Creatinine: 1.46 Potassium: 4.7 Troponin (high sensitive): <3 Chest xry revealed: Cardiomegaly with pulmonary vascular congestion and bilateral perihilar airspace opacities. Telemetry has revealed sinus rhythm. Patient is a 49-year-old gentleman who presented with watery diarrhea and episodes of GI bleeding. Does have baseline history of irritable bowel syn drome. Follows with GI. Cardiac-kovacs, does have history of paroxysmal AFib and is on Eliquis/Multaq as outpatient. Denies any recent chest pain/palpitations. Presentation is not considered cardiac catheterization this point. Cardiac- kovacs is non symptomatic. Acute coronary syndrome is not considered. Cardiac- kovacs, the patient is considered low risk patient for low risk EGD/colonoscopy. You can hold anticoagulation (patient on Eliquis as outpatient) prior to proceeding with EGD/colonoscopy. Diarrhea Questionable GI bleeding Paroxysmal AFib Hypertension Depression BPH SVT Cardiac suggestion for management: Management in tele Follow-up electrolytes and kidney function tests and correct abnormalities. Keep potassium above 4 and magnesium above 2 Long-term continuation of full anticoagulation (Eliquis) is advised. EKG Fluid resuscitation Cardiac kovacs, is stable Evaluation and management of diarrhea/GI bleeding as per primary team/GI. If any plan for EGD/colonoscopy: Cardiac-kovacs, the patient is considered low risk patient for low risk EGD/colonoscopy. You can hold anticoagulation (patient on Eliquis as outpatient) prior to proceeding with EGD/colonoscopy. Further evaluation and management depends on the above and clinical course A total of 75 minutes was spent reviewing the patient record, examining the patient, making a diagnostic and therapeutic plan, discussing this plan with medical personnel, following up on diagnostic studies and following the patient for clinical stability excluding any and all procedures. At least 50% of this time was spent in direct, [id number] contact. Thank you for allowing me to participate in this patient's care. Further recommendations will depend on patient's clinical course. Please do not hesitate to contact me if you have any questions or concerns. This medical document was created using electronic medical record system with [employer] dictation system. Although this document has been carefully reviewed, there may still be some phonetic and typographical errors. These areas are purely typographical due to the imperfection of the software programs, and do not reflect any compromise in the patient's medical care. Plan discussed with: Patient, Other (Nurse) APOORVA JON MD Oct 27, 2024 07:57
[2024-10-27] MEDS: PANTOPRAZOLE 40 MG/10 ML VIAL INJ IV SCH (09:14)
[2024-10-27] MEDS: cefTRIAXone 1GM/50ML D5W 50 ML IV SCH (09:14)
[2024-10-27] MEDS: TAMSULOSIN HYDROCHLORIDE 0.4 MG CAP PO SCH (09:15)
[2024-10-27] MEDS: DICYCLOMINE HCL 10 MG CAP PO PRN (11:57)
[2024-10-27 15:04] LABS: Hematocrit 43.5 % (41.0-53.0); Hemoglobin 15.3 g/dL (13.5-17.5); Mean Corpuscular Hemoglobin 33.9 pg (28.0-32.0); Mean Corpuscular Volume 96.1 fL (80.0-100.0); Nucleated Red Blood Cells % 0.2 %
[2024-10-27 15:09] LABS: Alkaline Phosphatase 78 U/L (46-116); Anion Gap 9 (5-15); BUN/Creatinine Ratio 16.1 (10.0-20.0); Blood Urea Nitrogen 18 mg/dL (9-23); Calcium 9.4 mg/dL (8.7-10.4); Carbon Dioxide 24 mmol/L (20-31); Lipase 37 U/L (12-53); Potassium 4.2 mmol/L (3.5-5.1); Sodium 142 mmol/L (136-145); Total Protein 6.2 g/dL (5.7-8.2)
[2024-10-27 15:10] LABS: Albumin 4.3 g/dL (3.2-4.8); Bilirubin, Total 0.4 mg/dL (0.2-1.0)
[2024-10-27 15:11] LABS: Alanine Aminotransferase 44 U/L (7-40); Chloride 109 mmol/L (98-107); Glucose 127 mg/dL (74-106)
--- NOTE | 2024-10-27 15:38 | DVHPN2 ---
Progress Note Date Seen: Oct 27, 2024 Medical Necessity Reason Pt with a Central, PICC or Fol: No Subjective Review of Systems: CVS:Normal, RESPIRATORY:Normal, GI:Normal, NEURO:Normal Objective vital signs Vital Sign Date Time Temp Pulse Resp B/P (MAP) Pulse Ox O2 Delivery O2 Flow Rate FiO2 10/27/24 13:00 98.7 66 20 120/89 (99) 97 98.7 10/27/24 07:30 Room Air* 0 21 Total Intake and Output 10/26/24 10/26/24 10/27/24 15:00 23:00 07:00 Intake Total 250 ml Output Total 800 ml Balance -550 ml medications Current Medications Medications Dose Ordered Sig/Yesenia Route Start Time Stop Time Status Last Admin Dose Admin Nitroglycerin 0.4 mg Q5MINP PRN SL 10/26/24 17:45 Morphine Sulfate 2 mg Q30M PRN IV 10/26/24 17:45 Ceftriaxone Sodium 50 ml @ 100 mls/hr DAILY@09 IV 10/27/24 09:00 10/27/24 09:14 100 MLS/HR Metronidazole 100 ml @ 100 mls/hr Q8HR IV 10/26/24 22:00 10/27/24 12:53 100 MLS/HR Amiodarone HCl 200 mg BID PO 10/26/24 22:00 10/27/24 09:15 200 MG Dicyclomine HCl 10 mg Q6HP PRN PO 10/26/24 17:45 10/27/24 11:57 10 MG Gabapentin 300 mg TID PO 10/26/24 22:00 10/27/24 12:53 300 MG Labetalol HCl 200 mg BID PO 10/26/24 22:00 10/27/24 09:16 200 MG Sucralfate 1 gm QID PO 10/26/24 18:00 10/27/24 11:56 1 GM Tamsulosin HCl 0.4 mg DAILY PO 10/27/24 10:00 10/27/24 09:15 0.4 MG Enoxaparin Sodium 90 mg Q12HR SC 10/26/24 22:00 10/27/24 09:16 90 MG Pantoprazole Sodium 40 mg DAILY IV 10/27/24 10:00 10/27/24 09:14 40 MG Sodium Chloride 1,000 ml @ 50 mls/hr Q20H IV 10/26/24 18:00 10/27/24 12:53 50 MLS/HR Examination: GENERAL:Normal, LUNGS:Normal, CVS:Normal, ABDOMEN:Normal, SKIN:Normal, NEURO:Normal laboratory and microbiology Laboratory Tests 10/27/24 14:45 Test 10/27/24 14:45 Range/Units Serum Glucose 127 H 74-106 mg/dL Labs and/or images reviewed: Labs reviewed by me, Image(s) reviewed by me Problem List/Assessment/Plan Problem List/Assessment/Plan 1. Diarrhea likely from bacterial gastroenteritis GI consult, IV antibiotics, stool culture, stool occult blood, C diff 2. Paroxysmal AFib Cardiology consult, continue home meds 3. Hypertension Continue home meds 4. Depression Continue home meds 5. BPH Subjective: Patient is awake and alert Objective: Patient was admitted for diarrhea likely related to gastro enteritis. Patient recently had colonoscopy done as outpatient with Dr. Troy. We will order stool test, C diff, and ova parasite. Patient is reporting blood in stool however his hemoglobin is 15.3. Plan: Continue with IV antibiotics, GI consult appreciated, obtain stool sample, obtain KUB, cardiology consult appreciated Plan discussed with: Patient My Orders My Orders Orders - BLAIRE MCLEOD Procedure Category Date Status Time Admit ADMIT 10/26/24 Transmitted 17:43 Allergies [facility] 10/26/24 In Process 17:43 Code Status CODE 10/26/24 Transmitted 17:43 Full Liq Diet DIET 10/26/24 Transmitted Dinner Condition: Fair [facility] 10/26/24 In Process 17:[address] [facility] 10/26/24 In Process Sublingual (Ntrostat 17:45 Morphine Sulfate [facility] 10/26/24 In Process Injection 17:45 Stat Ekg For Chest [facility] 10/26/24 In Process Pain 17:43 Notify Md Of Changes [facility] 10/26/24 In Process From Base 17:43 Supply Chain Technician For [facility] 10/26/24 In Process 24 Hours 17:43 Emergency Dysrhythmia [facility] 10/26/24 In Process Protocol 17:43 Rhythm Strips Once [facility] 10/26/24 In Process Every Shift 17:43 Oxygen By Nasal RT 10/26/24 Transmitted Cannula 17:43 Ceftriaxone 1gm/50ml [facility] 10/27/24 In Process D5w (Rocephin) 09:00 Metronidazole [facility] 10/26/24 In Process 500mg/100ml (Flagyl 22:00 Amiodarone Tablet [facility] 10/26/24 In Process (Cordarone Tablet) 22:00 Dicyclomine Capsule [facility] 10/26/24 In Process (Bentyl Capsule) 17:45 Gabapentin Capsule [facility] 10/26/24 In Process (Neurontin Capsule) 22:00 Labetalol Hcl Tablet [facility] 10/26/24 In Process (Normodyne Tablet) 22:00 Sucralfate Tab [facility] 10/26/24 In Process (Carafate Tab) 18:00 Tamsulosin [facility] 10/27/24 In Process Hydrochloride (Flomax) 10:00 Enoxaparin Sodium [facility] 10/26/24 In Process (Lovenox) 22:00 *Consult Dr. Erna ARGUELLES 10/26/24 Transmitted [place] 17:48 Pantoprazole PHA 10/27/24 In Process (Protonix) 10:00 Sodium Chloride 0.9% [facility] 10/26/24 In Process 18:00 *Consult Dr. Theo ARGUELLES 10/26/24 Transmitted [place] 18:56 Stool Bacterial [facility]ON 10/27/24 Logged Culture 13:20 Stool Occult Blood LAB 10/27/24 Logged 13:20 Gastric Occult Blood LAB 10/27/24 Logged 13:20 Clostridium Difficile [facility]ON 10/27/24 Logged Toxin 13:20 Ova & Parasite Exam EVON 10/27/24 Logged 13:20 Kub Abdomen Single XY 10/27/24 Logged View 15:13 Date of Service: Oct 27, 2024 Billing Provider: VERONICA HAYWOOD MD Common Visit Codes: [id number] INP/OBS CARE (MOD) BLAIRE MCLEOD FISH HATCHERY MANAGER Oct 27, 2024 15:38
--- NOTE | 2024-10-27 18:45 | DVH ---
Indication: distended abd Technique: XY KUB ABDOMEN SINGLE VIEWXY Comparison: None FINDINGS/IMPRESSION: Moderate gaseous distention of the large bowel. No evidence for free intraperitoneal air. Cardiomegaly.
--- NOTE | 2024-10-27 21:58 | DVHPN2 ---
Progress Note - Dictate Date Seen: Oct 27, 2024 Medical Necessity Reason Pt with a Central, PICC or Fol: No Subjective No new complaints Patient has underlying severe anxiety and pain medication seeking and manipulative behavior Patient stated he had some bleeding which could likely be from his hemorrhoids Patient states he has also gained weight He has underlying cardiomyopathy CHF and AFib vital signs Vital Sign Date Time Temp Pulse Resp B/P (MAP) Pulse Ox O2 Delivery O2 Flow Rate FiO2 10/27/24 21:43 68 129/79 10/27/24 17:00 97.7 20 95 97.7 10/27/24 07:30 Room Air* 0 21 Total Intake and Output 10/26/24 10/26/24 10/27/24 15:00 23:00 07:00 Intake Total 250 ml Output Total 800 ml Balance -550 ml medications Current Medications Medications Dose Ordered Sig/Yesenia Route Start Time Stop Time Status Last Admin Dose Admin Nitroglycerin 0.4 mg Q5MINP PRN SL 10/26/24 17:45 Morphine Sulfate 2 mg Q30M PRN IV 10/26/24 17:45 Ceftriaxone Sodium 50 ml @ 100 mls/hr DAILY@09 IV 10/27/24 09:00 10/27/24 09:14 100 MLS/HR Metronidazole 100 ml @ 100 mls/hr Q8HR IV 10/26/24 22:00 10/27/24 21:44 100 MLS/HR Amiodarone HCl 200 mg BID PO 10/26/24 22:00 10/27/24 21:42 200 MG Dicyclomine HCl 10 mg Q6HP PRN PO 10/26/24 17:45 10/27/24 21:43 10 MG Gabapentin 300 mg TID PO 10/26/24 22:00 10/27/24 21:42 300 MG Labetalol HCl 200 mg BID PO 10/26/24 22:00 10/27/24 21:43 200 MG Sucralfate 1 gm QID PO 10/26/24 18:00 10/27/24 21:42 1 GM Tamsulosin HCl 0.4 mg DAILY PO 10/27/24 10:00 10/27/24 09:15 0.4 MG Enoxaparin Sodium 90 mg Q12HR SC 10/26/24 22:00 10/27/24 21:43 90 MG Pantoprazole Sodium 40 mg DAILY IV 10/27/24 10:00 10/27/24 09:14 40 MG Sodium Chloride 1,000 ml @ 50 mls/hr Q20H IV 10/26/24 18:00 10/27/24 12:53 50 MLS/HR objective General: NAD, AAOX3 Chest: lung andre clear to auscultation Heart: RRR, no murmur Abdomen: Mild-distended, mild lower abdominal tenderness to palpation, +BS Ext no c/c/e laboratory and microbiology Laboratory Tests 10/27/24 14:45 Test 10/27/24 14:45 Range/Units Serum Glucose 127 H 74-106 mg/dL Problems(with codes): (1) Acute exacerbation of chronic abdominal pain (2) Gastroenteritis (3) Chest pain (4) Abdominal pain Prognosis Plan Continue supportive care No further GI workup at this time Counseling and pain management Plan discussed with: Patient MO MALCOLM MD Oct 27, 2024 21:58
[2024-10-28] VITALS (8 sets, daily range): BP systolic 94–160; BP diastolic 57–86; PULSE 63–78; RESP 17–19; TEMP 97.8–98.7; O2SAT 95–98
--- NOTE | 2024-10-28 11:50 | DVHPN2 ---
Progress Note - Dictate Date Seen: Oct 28, 2024 Medical Necessity Reason Pt with a Central, PICC or Fol: No vital signs Vital Sign Date Time Temp Pulse Resp B/P (MAP) Pulse Ox O2 Delivery O2 Flow Rate FiO2 10/28/24 09:16 98.4 67 19 135/70 (91) 98 98.4 10/28/24 07:30 Room Air* 0 21 Total Intake and Output 10/27/24 10/27/24 10/28/24 15:00 23:00 07:00 Intake Total 1810 ml 1450 ml Output Total 2075 ml 900 ml Balance -265 ml 550 ml medications Current Medications Medications Dose Ordered Sig/Yesenia Route Start Time Stop Time Status Last Admin Dose Admin Nitroglycerin 0.4 mg Q5MINP PRN SL 10/26/24 17:45 Morphine Sulfate 2 mg Q30M PRN IV 10/26/24 17:45 Ceftriaxone Sodium 50 ml @ 100 mls/hr DAILY@09 IV 10/27/24 09:00 10/28/24 09:10 100 MLS/HR Metronidazole 100 ml @ 100 mls/hr Q8HR IV 10/26/24 22:00 10/28/24 05:10 100 MLS/HR Amiodarone HCl 200 mg BID PO 10/26/24 22:00 10/28/24 09:11 200 MG Dicyclomine HCl 10 mg Q6HP PRN PO 10/26/24 17:45 10/28/24 09:11 10 MG Gabapentin 300 mg TID PO 10/26/24 22:00 10/28/24 05:10 300 MG Labetalol HCl 200 mg BID PO 10/26/24 22:00 10/28/24 09:12 200 MG Sucralfate 1 gm QID PO 10/26/24 18:00 10/28/24 05:10 1 GM Tamsulosin HCl 0.4 mg DAILY PO 10/27/24 10:00 10/28/24 09:12 0.4 MG Enoxaparin Sodium 90 mg Q12HR SC 10/26/24 22:00 10/28/24 09:11 90 MG Pantoprazole Sodium 40 mg DAILY IV 10/27/24 10:00 10/28/24 09:12 40 MG Sodium Chloride 1,000 ml @ 50 mls/hr Q20H IV 10/26/24 18:00 10/27/24 12:53 50 MLS/HR laboratory and microbiology Laboratory Tests 10/27/24 14:45 Test 10/27/24 14:45 Range/Units Serum Glucose 127 H 74-106 mg/dL Assessment/Plan Patient is a 49-year-old gentleman who presented with diarrhea. He mentions that his diarrhea was watery throughout the day before presentation. It did have some blood. Cardiology is involved for cardiac aspects of care. Patient is known to our practice from outside and before. Does have history of paroxysmal AFib and is on Eliquis/Multaq as outpatient. Denies any chest pains. Denies shortness of breath. Denies palpitations recently. Not in acute distress. No carotid bruit. No JVD. Mucosa is pink and wet. Lungs: Clear to auscultation. Cardiac: Regular, no thrill/gallop, Abdomen is soft, distended. There is no gross mass/hepatomegaly. Abdomen is distended. T here is no rebound tenderness. Extremities reveal 1+ edema bilaterally. Dorsalis pedis is 2+ bilateral. Past medical history includes learning disability, hypertension, paroxysmal AFib (on Eliquis as outpatient), asthma, osteoarthritis, anxiety/depression, BPH, hyperlipidemia (on Repatha as outpatient), migraines, history of vitamin-D deficiency and magnesium deficiency, CKD, GERD, short episodes of SVT and mild mitral valve prolapse. He is allergic to statins and is on Repatha as outpatient. Nuclear stress test of February 2023 did not reveal ischemia and reported ejection fraction of 77%. Echocardiogram of December 24, 2022 (performed in the office) revealed ejection fraction of 65-70%, mild MR/TR/PI and mild mitral valve prolapse Echocardiogram of October 13, 2023 had revealed ejection fraction of 64%, trace MR/TR/PI Echocardiogram of March 25, 2024 revealed ejection fraction of 65-70 percent, there was no wall motion abnormality. There was trace MR/TR/PI. Creatinine: 1.46 - 1.12 Potassium: 4.7 - 4.2 Troponin (high sensitive): <3 Chest xry revealed: Cardiomegaly with pulmonary vascular congestion and bilateral perihilar airspace opacities. KUB revealed: Moderate gaseous distention of the large bowel. No evidence for free intraperitoneal air. Cardiomegaly. EKG revealed: NSR, no specific ST T changes Telemetry has revealed sinus rhythm. Patient is a 49-year-old gentleman who presented with watery diarrhea and episodes of GI bleeding. Does have baseline history of irritable bowel syndrome. Follows with GI. Cardiac-kovacs, does have history of paroxysmal AFib and is on Eliquis/Multaq as outpatient. Denies any recent chest pain/palpitations. Presentation is not considered cardiac catheterization this point. Cardiac-kovacs is non symptomatic. Acute coronary syndrome is not considered. Cardiac-kovacs, the patient is considered low risk patient for low risk EGD/colonoscopy. You can hold anticoagulation (patient on Eliquis as outpatient) prior to proceeding with EGD/colonoscopy. Diarrhea Questionable GI bleeding Paroxysmal AFib Hypertension Depression BPH SVT Cardiac suggestion for management: Management in tele Follow-up electrolytes and kidney function tests and correct abnormalities. Keep potassium above 4 and magnesium above 2 Long-term continuation of full anticoagulation (Eliquis) is advised. Cardiac kovacs, is stable and can be followed as outpatient Evaluation and management of diarrhea/GI bleeding as per primary team/GI. Further evaluation and management depends on the above and clinical course A total of 55 minutes was spent reviewing the patient record, examining the patient, making a diagnostic and therapeutic plan, discussing this plan with medical personnel, following up on diagnostic studies and following the patient for clinical stability excluding any and all procedures. At least 50% of this time was spent in direct, [id number] contact. Thank you for allowing me to participate in this patient's care. Further recommendations will depend on patient's clinical course. Please do not hesitate to contact me if you have any questions or concerns. This medical document was created using electronic medical record system with [employer] computerized dictation system. Although this document has been carefully reviewed, there may still be some phonetic and typographical errors. These areas are purely typographical due to the imperfection of the software programs, and do not reflect any compromise in the patient's medical care. Plan discussed with: Patient, Other (nurse) APOORVA JON MD Oct 28, 2024 11:50
[2024-10-28] MEDS ORDERED: METR-344 PO (13:30)
[2024-10-28] MEDS ORDERED: CIPR-173 PO (13:30)
--- NOTE | 2024-10-28 13:31 | DVHDS2 ---
Discharge Summary Date of Admission Oct 26, 2024 at 17:47 Date of Discharge: Oct 28, 2024 Admitting Diagnosis Diarrhea Labs/Diagnostic Data: Laboratory Results Test 10/28/24 09:19 10/27/24 14:45 10/26/24 18:00 10/26/24 16:57 White Blood Count 4.0 10^3/uL (4.4-10.8) Red Blood Count 4.52 10^6/uL (4.5-5.90) Hemoglobin 15.3 g/dL (13.5-17.5) Hematocrit 43.5 % (41.0-53.0) Mean Corpuscular Volume 96.1 fL (80.0-100.0) Mean Corpuscular Hemoglobin 33.9 pg (28.0-32.0) Mean Corpuscular Hemoglobin Concent 35.3 g/dL (32.0-36.0) Red Cell Distribution Width 14.3 % (11.8-14.3) Platelet Count 205 10^3/uL (140-450) Mean Platelet Volume 7.6 fL (6.9-10.8) Neutrophils (%) (Auto) 56.8 % (37.0-80.0) Lymphocytes (%) (Auto) 25.9 % (10.0-50.0) Monocytes (%) (Auto) 14.0 % (0.0-12.0) Eosinophils (%) (Auto) 2.9 % (0.0-7.0) Basophils (%) (Auto) 0.4 % (0.0-2.0) Neutrophils # (Auto) 2.3 10 ^3/uL (1.6-8.6) Lymphocytes # (Auto) 1.0 10 ^3/uL (0.4-5.4) Monocytes # (Auto) 0.6 10 ^3/uL (0-1.3) Eosinophils # (Auto) 0.1 10 ^3/uL (0-0.8) Basophils # (Auto) 0 10 ^3/uL (0-0.2) Nucleated Red Blood Cells 0.2 % Sodium Level 142 mmol/L (136-145) Potassium Level 4.2 mmol/L (3.5-5.1) Chloride Level 109 mmol/L (98-107) Carbon Dioxide Level 24 mmol/L (20-31) Anion Gap 9 (5-15) Blood Urea Nitrogen 18 mg/dL (9-23) Creatinine 1.12 mg/dL (0.700-1.30) Glomerular Filtration Rate Calc 80 mL/min (>90) BUN/Creatinine Ratio 16.1 (10.0-20.0) Serum Glucose 127 mg/dL (74-106) Calcium Level 9.4 mg/dL (8.7-10.4) Total Bilirubin 0.4 mg/dL (0.2-1.0) Aspartate Amino Transferase (AST) 25 U/L (13-40) Alanine Aminotransferase (ALT) 44 U/L (7-40) Alkaline Phosphatase 78 U/L (46-116) Total Protein 6.2 g/dL (5.7-8.2) Albumin 4.3 g/dL (3.2-4.8) Lipase 37 U/L (12-53) Urine Color Light-yellow (Yellow) Urine Clarity Clear (Clear) Urine pH 5.0 (5.0-9.0) Urine Specific [place] 1.018 (1.001-1.035) Urine Protein Negative (Negative) Urine Ketones Negative (Negative) Urine Blood Negative /uL (Negative) Urine Nitrite Negative (Negative) Urine Bilirubin Negative (Negative) Urine Urobilinogen Normal mg/dL (Negative) Urine Leukocyte Esterase Negative /uL (Negative) Urine RBC <1 /hpf (0 - 3) Urine Microscopic WBC < 1 /HPF (0-3) Urine Squamous Epithelial Cells None seen /hpf (<5) Urine Bacteria None seen /hpf (None Seen) Urine Glucose Normal mg/dL (Normal) Troponin I High Sensitivity < 3 ng/L (</=54) Other Laboratory Tests 10/27/24 14:45 Brief Hx & Hospital Course: Patient was admitted for diarrhea likely related to gastro enteritis. Patient was reporting blood in his stool however stool occult blood was negative and patient's hemoglobin is normal at 15.3, and there was absolutely no signs of bleeding. Patient recently had colonoscopy done as outpatient with Dr. Troy. Per Dr. Troy is no patient likely had hemorrhoid. Patient underwent stool test for Shigella toxin, C diff, stool occult which were all negative. Patient was informed to follow up with Gastroenterology for further workup. Patient did verbalize understanding. Patient has underlying history of CHF and cardiomyopathy and was seen and cleared by tube coverer. Patient did demonstrate signs of pain seeking behavior, patient states he is allergic to everything but Dilaudid. Condition at Discharge: Fair Final Diagnosis/Problems List 1. Diarrhea likely from bacterial gastroenteritis 2. Paroxysmal AFib 3. Hypertension Continue home meds 4. Depression 5. BPH Discharge Disposition: Home Discharge Instruct/Medications Diet: See Comment Diet comment: LIQUID DEIT Activity: Light activity Follow Up/Referral: pcp WITHIN [address] TROY FOR STOOL TEST RESULTS Scheduled Amiodarone HCl (Amiodarone HCl), 200 MG PO BID Apixaban Base (Eliquis), 5 MG PO BID, (Reported) Beclomethasone Dipropionate (Qvar Redihaler), 2 PUFF IN BID, (Reported) Ciprofloxacin Hcl (Cipro), 1 TAB PO BID Gabapentin (Gabapentin), 1 CAP PO TID Metronidazole (Flagyl), 500 MG PO TID Pantoprazole Sodium Sesquihydr (Pantoprazole Sodium), 1 TAB PO BID Scheduled PRN Albuterol Sulfate (Albuterol Sulfate Hfa), 1 PUFF INH Q4HPRN PRN for SHORTNESS OF BREATH, (Reported) Calcium Carbonate (Tums), 2-3 TAB PO QHSP PRN Dicyclomine Hcl (Dicyclomine Hcl), 10 MG PO BID PRN for ABD MUSCLE SPASM, (Reported) Dicyclomine Hcl (Bentyl Capsule), 2 CAP PO Q6HP PRN Nitroglycerin (Nitrostat), 0.4 MG SL Q12HP PRN Discontinued Medications Atogepant (Qulipta), 60 MG PO DAILY, (Reported) Discharge Statement: "Patient was advised to return to the ER or call 911 if any headaches, dizziness, shortness of breath, chest pain, abdominal pain, bleeding, fevers, or worsening of medical condition. Patient was counseled about treatment plan, medications, possible side effects, patientverbalized understanding. All questions were answered to the best of my ability. This discharge took greater then 30 minutes in planning, reviewing documentation, counseling the patient, and discussing with other team members." ASSESSMENT ASSESSMENT Assessment 1. Diarrhea likely from bacterial gastroenteritis 2. Paroxysmal AFib 3. Hypertension Continue home meds 4. Depression 5. BPH BLAIRE MCLEOD [facility] Oct 28, 2024 13:31
[2024-10-28 13:45] LABS: Hematocrit 46.1 % (41.0-53.0); Hemoglobin 16.0 g/dL (13.5-17.5); Mean Corpuscular Hemoglobin 33.9 pg (28.0-32.0); Mean Corpuscular Volume 97.7 fL (80.0-100.0); Nucleated Red Blood Cells % 0.1 %
[2024-10-28 14:00] LABS: Albumin 4.7 g/dL (3.2-4.8); Alkaline Phosphatase 79 U/L (46-116); Anion Gap 10 (5-15); BUN/Creatinine Ratio 8.7 (10.0-20.0); Bilirubin, Total 0.3 mg/dL (0.2-1.0); Blood Urea Nitrogen 11 mg/dL (9-23); Calcium 10.3 mg/dL (8.7-10.4); Carbon Dioxide 24 mmol/L (20-31); Potassium 4.3 mmol/L (3.5-5.1); Sodium 144 mmol/L (136-145); Total Protein 7.0 g/dL (5.7-8.2)
[2024-10-28 14:02] LABS: Alanine Aminotransferase 43 U/L (7-40); Chloride 110 mmol/L (98-107); Glucose 134 mg/dL (74-106)
--- NOTE | 2024-10-30 10:08 | ECG ---
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
--- NOTE | 2024-10-30 10:09 | ECG ---
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
== END 2024-10-28 18:50 | disposition home or self-care (01) | DRG 371 ==
LOC: ER 16:10 → OVERFLOW 17:47 → TELE-WESTW 23:00
PROVIDERS: ADMIT Nurse Practitioner Family; ATTEND Nurse Practitioner Family
DX: A04.9 Bacterial intestinal infection, unspecified (principal); N17.0 Acute kidney failure with tubular necrosis; I13.0 Hypertensive heart and chronic kidney disease with heart failure and stage 1 through stage 4 chronic kidney disease, or unspecified chronic kidney disease; N18.9 Chronic kidney disease, unspecified; I48.0 Paroxysmal atrial fibrillation; N40.0 Benign prostatic hyperplasia without lower urinary tract symptoms; E78.5 Hyperlipidemia, unspecified; F32.A Depression, unspecified; G43.909 Migraine, unspecified, not intractable, without status migrainosus; K21.9 Gastro-esophageal reflux disease without esophagitis; I50.9 Heart failure, unspecified; G89.29 Other chronic pain; F41.9 Anxiety disorder, unspecified; J45.909 Unspecified asthma, uncomplicated; K64.9 Unspecified hemorrhoids; Z82.3 Family history of stroke; Z88.8 Allergy status to other drugs, medicaments and biological substances; Z88.6 Allergy status to analgesic agent; Z88.5 Allergy status to narcotic agent; Z88.0 Allergy status to penicillin; Z79.899 Other long term (current) drug therapy; Z79.01 Long term (current) use of anticoagulants; Z83.3 Family history of diabetes mellitus
CPT/HCPCS: 36415; 71045; 74018; 80048; 80053; 81001; 82270; 83690; 84484; 85025; 87045; 87427; 93005; 96365; G0378; J2470; J3490

== ENCOUNTER 2024-11-13 10:27 | Inpatient (IN) | payer OTHER ==
[~2024-11-13] VITALS: Ht 175.3 cm; Wt 84.0 kg
[~2024-11-13 10:27] MED LIST changes: -ATOG60TA PO; -CLOT1CRE51 TOP; -DOCU-94 PO; -EVOL140I2 SC; -HYDR-3682 PO; -KETO2CRE4 TOP; -LABE200T9 PO; -MET500T PO; +METR-344 PO; -PRAV20TA3 PO; -SUCR1SUS26 PO; -SUCR1TAB PO; -TAMS1CAP25 PO; -ZOFR4T PO
--- NOTE | 2024-11-13 11:19 | ED.PDOC ---
HPI Comments GERMÁN: HPI: Poor Historian. 49 y.o male presents to the ED for recurrent chest pain with this pain episode starting today. Patient reports pain is across his chest, is non radiating and is constant. Patient reports recently being seen at [facility] some time last week, was admitted for chest pain but unsure when he was discharged. Patient does not presents with recent discharged paperwork, however has multiple from [facility] for previous chest and chronic epigastric pain. Patient f/u with internal medicine physician assistant Dr. Pizarro. Patient is on Eliquis. Patient tried nitroglycerin today without significant improvement. Patient reports Dr. Pizarro took patient off ASA and placed him on NTG. Vitals Temp: 99.2 F HR: 60 BP: 122/69 RR: 15 SPO2: 97% RA Past Medical history: Chronic chest and abdominal pain Past Surgical history: DENIES ANY Medications: NTG Social History: Denies smoking, ETOH, and drug use. Allergies: See allergies list, multiple REVIEW OF SYSTEMS: CONSTITUTIONAL: Denies acute: fever, diaphoresis, chills, HEAD: Denies acute: headache, photophobia Eyes: Denies acute: Double vision, vision loss, eye pain, eye discharge. EARS: Denies acute: tinnitus, hearing loss, ear discharge, ear pain, THROAT: Denies acute: sore throat, swelling, difficulty swallowing , pain with swallowing, change in voice. NECK: Denies acute: neck pain, neck swelling, stiff neck. HEART: Denies acute : palpitations, LUNGS: Denies acute: SOB, wheezing, cough, hemoptysis ABDOMEN: Denies acute: abdominal pain, Nausea, Vomiting, diarrhea, melena , hematemesis, hematochezia SKIN: Denies acute: rash, redness, lesions, itchiness. EXTREMITIES: Denies acute: calf pain, numbness, tingling, weakness, denies pain in extremity. Denies acute: Low back pain. Neuro: Denies acute: focal neurological deficit, motor or sensory focal neurological deficit, tremors, seizure like activity, confusion, dizziness, change in mental status, loss of bowel or bladder function, cauda equina like symptoms. : Denies acute: dysuria, hematuria, flank pain, increase in urinary frequency. PSYCH: Denies acute: hallucination, suicidal ideation, homicidal ideation. PHYSICAL EXAM: General: -----mild---acute distress, awake and alert. Head: normocephalic, atraumatic. Neck: supple, trachea is midline, no swelling. Throat: Normal phonation. Eyes:, no erythema, no purulent discharge, no proptosis, no icterus. Heart: regular rate, regular rhythm, no significant murmur appreciated. Lungs: no apparent respiratory distress, Able to speak in full sentences. No wheezing, no rhonchi, no crackles. No stridors Clear to auscultation bilaterally. Abdomen: non tender to palpation, non distended, soft, no guarding, no rebound, + bowel sounds. Neuro: Awake, Alert, oriented to name, self, situation, follows commands GCS=15. Speech is normal. Skin: no petechia, no purpura, no cyanosis, non-pale, not jaundice. Lower extremities: --no - Pitting edema no deformity, no focal swelling, no calf TTP. Makes eye contact. moves all four extremities. Face: no apparent facial droop. Ambulating in the ED independently. ED COURSE: DISCLAIMER: This medical document was created using an electronic medical record system with voice recognition software and computerized dictation system. Although this doc ument has been carefully reviewed, there might still be some phonetic and typographical errors. Occasional wrong-word or "sound-alike" substitutions may have occurred due to the inherent limitations of voice recognition software. These areas are purely typographical due to imperfections of the software programs and do not reflect any compromise in the patient's medical care. Please read the chart carefully and recognize, using context, where these substitutions have occurred. Chief Complaint: Chest Pain Time Seen by MD: 10:31 Primary Care Provider: AYLEEN Reviewed Notes: Nurses Notes, Allergies Allergies: Coded Allergies: Acetaminophen (Verified Allergy, Unknown, 03/02/23) Amoxicillin (Verified Allergy, Unknown, 03/02/23) Codeine (Verified Allergy, Unknown, 03/02/23) Hydrocodone (Verified Allergy, Unknown, 03/24/24) Ibuprofen (Verified Allergy, Unknown, 03/02/23) Penicillins (Verified Allergy, Unknown, 03/02/23) Statins (Verified Allergy, Unknown, 03/02/23) Tramadol (Verified Allergy, Unknown, 03/02/23) Uncoded Allergies: WALNUTS (Allergy, Unknown, 03/02/23) Home Meds Active Scripts Ciprofloxacin Hcl (Cipro) 500 Mg Tab, 1 TAB PO BID for 14 Days, #28 TAB Prov:BLAIRE MCLEOD [employer]ANT OPERATOR 10/28/24 Metronidazole (Flagyl) 500 Mg Tab, 500 MG PO TID for 14 Days, #42 TAB Prov:BLAIRE MCLEOD [employer] OPERATOR 10/28/24 Calcium Carbonate (Tums) 500 Mg Chw, 2-3 TAB PO QHSP PRN, #90 TAB.CHEW prn abdominal pain Prov:YOSHI BONNER MD 09/05/24 Nitroglycerin (Nitrostat) 0.4 Mg Sub, 0.4 MG SL Q12HP PRN, #10 TAB Prov:APOORVA GILLESPIE PAC 08/25/24 Dicyclomine Hcl (BENTYL CAPSULE) 10 Mg Cp, 2 CAP PO Q6HP PRN, #90 CAP 11 Refills prn abdominal pain Prov:YOSHI BONNER MD 08/01/24 Gabapentin (Gabapentin) 300 Mg Cap, 1 CAP PO TID, #90 CAP 5 Refills Prov:MCKENNA ROTH TRANSCRIPTION COORDINATOR 05/24/24 Amiodarone HCl (Amiodarone HCl) 200 Mg Tab, 200 MG PO BID for 30 Days, #60 TAB Prov:MCKENNA ROTH TRANSCRIPTION COORDINATOR 05/24/24 Pantoprazole Sodium Sesquihydr (Pantoprazole Sodium) 40 Mg Tab, 1 TAB PO BID for 30 Days, #60 TAB Prov:MCKENNA ROTH TRANSCRIPTION COORDINATOR 11/15/23 Reported Medications Amlodipine Besylate (Amlodipine Besylate) 10 Mg Tab, 1 TAB PO DAILY 11/13/24 Beclomethasone Dipropionate (Qvar Redihaler) 80 Mcg/Act Aer, 2 PUFF IN BID, AER 03/25/24 Albuterol Sulfate (Albuterol Sulfate Hfa) 108 Mcg/Act Aer, 1 PUFF INH Q4HPRN PRN for SHORTNESS OF BREATH 03/25/24 Apixaban Base (ELIQUIS) 5 Mg Tab, 5 MG PO BID, TAB 10/12/23 Dicyclomine Hcl (Dicyclomine Hcl) 20 Mg Tab, 10 MG PO BID PRN for ABD MUSCLE SPASM, MG 10/12/23 Information Source: Patient Mode of Arrival: Ambulatory Past Medical History PAST MEDICAL HISTORY: AFIB, Anxiety, Arthritis, Asthma, GERD, High Lipids, HTN Surgical History: Denies all surgeries Family History Family History: Reviewed,noncontributory to illness, Unknown Social History Smoker: Non-Smoker Alcohol: Denies ETOH Use Drugs: Denies Drug Use Lives In: Home Was a procedure done? Was a procedure done?: No CP Differential Dx Differential Diagnosis: N/A Differential Diagnosis: Angina, Chest Wall Pain, Cholelithiasis, Costoch ondritis, Esophageal reflux/spasm, Gastritis, Myocardial Infarction, Pericarditis, Other (Ddx include but not limitied to gastritis, musculoskeletal pain, radiculopathy, atypical chest pain, dissection, aneurysm, ACS, unstable angina, hiatal hernia, GERD, anxiety, costochondritis, PE, pneumothroax, neoplasm, cardiac ischemia, drug abuse, anemia.) X-Ray, Labs, Meds, VS Vital Signs Date Time Temp Pulse Resp B/P (MAP) Pulse Ox O2 Delivery O2 Flow Rate FiO2 11/13/24 13:31 50 11/13/24 12:59 74 18 104/63 (77) 92 11/13/24 12:02 53 18 141/81 (101) 96 11/13/24 12:02 141/81 11/13/24 12:02 53 18 96 Room Air 11/13/24 11:50 53 11/13/24 10:33 99.2 60 15 97 99.2 11/13/24 10:30 54 Lab Test 11/13/24 16:08 11/13/24 13:40 11/13/24 11:39 Range/Units Troponin I High Sensitivity < 3 L 3 L < 3 L </=54 ng/L White Blood Count 3.7 L 4.4-10.8 10^3/uL Red Blood Count 4.68 4.5-5.90 10^6/uL Hemoglobin 15.6 13.5-17.5 g/dL Hematocrit 45.2 41.0-53.0 % Mean Corpuscular Volume 96.7 80.0-100.0 fL Mean Corpuscular Hemoglobin 33.4 H 28.0-32.0 pg Mean Corpuscular Hemoglobin Concent 34.5 32.0-36.0 g/dL Red Cell Distribution Width 13.9 11.8-14.3 % Platelet Count 238 140-450 10^3/uL Mean Platelet Volume 7.4 6.9-10.8 fL Neutrophils (%) (Auto) 62.9 37.0-80.0 % Lymphocytes (%) (Auto) 21.5 10.0-50.0 % Monocytes (%) (Auto) 12.3 H 0.0-12.0 % Eosinophils (%) (Auto) 3.0 0.0-7.0 % Basophils (%) (Auto) 0.3 0.0-2.0 % Neutrophils # (Auto) 2.3 1.6-8.6 10 ^3/uL Lymphocytes # (Auto) 0.8 0.4-5.4 10 ^3/uL Monocytes # (Auto) 0.5 0-1.3 10 ^3/uL Eosinophils # (Auto) 0.1 0-0.8 10 ^3/uL Basophils # (Auto) 0 0-0.2 10 ^3/uL Nucleated Red Blood Cells 0.0 % Sodium Level 144 136-145 mmol/L Potassium Level 4.1 3.5-5.1 mmol/L Chloride Level 113 H 98-107 mmol/L Carbon Dioxide Level 22 20-31 mmol/L Anion Gap 9 5-15 Blood Urea Nitrogen 8 L 9-23 mg/dL Creatinine 1.33 H 0.700-1.30 mg/dL Glomerular Filtration Rate Calc 65 >90 mL/min BUN/Creatinine Ratio 6.0 L 10.0-20.0 Serum Glucose 101 74-106 mg/dL Calcium Level 9.7 8.7-10.4 mg/dL Total Bilirubin 0.4 0.2-1.0 mg/dL Aspartate Amino Transferase (AST) 21 13-40 U/L Alanine Aminotransferase (ALT) 32 7-40 U/L Alkaline Phosphatase 59 46-116 U/L B-Type Natriuretic Peptide 25.06 0-100 pg/mL Total Protein 7.0 5.7-8.2 g/dL Albumin 4.6 3.2-4.8 g/dL [facility] [id number] [facility] [address] Ph: [phone] DIAGNOSTIC IMAGING Diagnostic Imaging Report : [id number] Signed PATIENT: LUIS MIGUEL JOSHI ACCT: [id number] UNIT: [id number] : 1975 LOC: ER ROOM / BED: / AGE / SEX: 49 / M ADM STATUS: REG ER SERVICE 1111 ORDERING PHYSICIAN: NARESH METZGER DO PROCEDURE(s): CXRP - CHEST PORTABLE REASON: cp ORDER NUMBER(s): [id number], ACCESSION NUMBER(s): [id number] XY CHEST PORTABLE, HISTORY: cp COMPARISON: XY CHEST PORTABLE on DOS: 10/26/24, XY CHEST PORTABLE on DOS: 08/25/24, XY CHEST XRAY 1 VIEW on DOS: 07/12/24 XY CHEST PORTABLE on DOS: 10/26/24, XY CHEST PORTABLE on DOS: 08/25/24, XY CHEST XRAY 1 VIEW on DOS: 07/12/24 TECHNICAL DATA: 1 view of the chest was obtained. FINDINGS: Lines and tubes: None Cardiomediastinal silhouette: normal Pulmonary vasculature: normal Lung expansion: normal Lung airspace: normal Lung interstitium: normal Pleura: normal Pneumothorax: no Bones: Unremarkable Other: no IMPRESSION: No acute intrathoracic abnormality. ATED BY: ANDREW JOHNSON MD DICTATED DATE/TIME: 11/13/24 1141 SIGNED BY: ANDREW JOHNSON MD SIGNED DATE/TIME: 11/13/24 1141 CC: Time of 1ST Reevaluation: 11:42 Reevaluation 1ST: Unchanged Patient Education/Counseling: Diagnosis, Treatment Family Education/Counseling: Other Comments MDM: patient presented with the above HPI.---cardiac---workup was initiated. patient was found with the above mentioned diagnosis. the following medications were ordered: please refer to order lists of meds and tests obtained by myself Dr. Metzger. Patient ED course and VS have been stabilized. Patient has been reassessed in the ED and remained in a stable condition. Pertinent incidental findings were discussed with the patient and/or family. Patient/family voices understanding and is agreeable with plan. Patient has been observed in the ED adequate length of time to insure improvement/stability. Escalation of care considered: Consideration of escalation to observation or admission Patient was ADMITTED to the medicine team for further evaluation and treatment of their presentation. All the reports of any imaging studies that were ordered by myself were reviewed by myself. Departure 1 Departure Time of Disposition: 11:42 Impression: Primary Impression: Chest pain Disposition: ADMITTED INPATIENT Admit to: Tele Condition: Guarded Discharged With: Self Critical Care Note Critical Care Time?: No Heart Score Heart Score: Heart Score Response (Comments) Value History Moderate Suspicious 1 EKG Normal 0 Age 45-64 1 Risk Factors 1 or 2 risk factors 1 Troponin Normal limit 0 Total 3 I personally scribed for NARESH METZGER DO ([email or web address]) on 11/13/24 at 11:19. E lectronically submitted by Jessica Floyd ([facility]). I personally scribed for NARESH METZGER DO ([email or web address]) on 11/13/24 at 11:55. Elec tronically submitted by Jessica Floyd ([facility]). I personally scribed for NARESH METZGER DO ([email or web address]) on 11/13/24 at 13:58. Electro nically submitted by Jessica Floyd ([facility]). NARESH METZGER DO Nov 13, 2024 11:19
--- NOTE | 2024-11-13 11:43 | DVH ---
XY CHEST PORTABLE, HISTORY: cp COMPARISON: XY CHEST PORTABLE on DOS: 10/26/24, XY CHEST PORTABLE on DOS: 08/25/24, XY CHEST XRAY 1 VIE W on DOS: 07/12/24 XY CHEST PORTABLE on DOS: 10/26/24, XY CHEST PORTABLE on DOS: 08/25/24, XY CHEST XRAY 1 VIEW on DOS: 07/12/24 TECHNICAL DATA: 1 view of the chest was obtained. FINDINGS: Lines and tubes: None Cardiomediastinal silhouette: normal Pulmonary vasculature: normal Lung expansion: normal Lung airspace: normal Lung interstitium: normal Pleura: normal Pneumothorax: no Bones: Unremarkable Other: no IMPRESSION: No acute intrathoracic abnormality.
[2024-11-13] MEDS: NITROGLYCERIN 0.4 MG SL TAB SL ONE (12:02)
[2024-11-13 12:21] LABS: Hematocrit 45.2 % (41.0-53.0); Hemoglobin 15.6 g/dL (13.5-17.5); Mean Corpuscular Hemoglobin 33.4 pg (28.0-32.0); Mean Corpuscular Volume 96.7 fL (80.0-100.0); Nucleated Red Blood Cells % 0.0 %
[2024-11-13 12:28] LABS: Alanine Aminotransferase 32 U/L (7-40); Albumin 4.6 g/dL (3.2-4.8); Alkaline Phosphatase 59 U/L (46-116); Anion Gap 9 (5-15); BUN/Creatinine Ratio 6.0 (10.0-20.0); Calcium 9.7 mg/dL (8.7-10.4); Carbon Dioxide 22 mmol/L (20-31); Glucose 101 mg/dL (74-106); Potassium 4.1 mmol/L (3.5-5.1); Sodium 144 mmol/L (136-145); Total Protein 7.0 g/dL (5.7-8.2)
[2024-11-13 12:29] LABS: Bilirubin, Total 0.4 mg/dL (0.2-1.0); Blood Urea Nitrogen 8 mg/dL (9-23); Chloride 113 mmol/L (98-107)
--- NOTE | 2024-11-13 16:29 | DVHHP2 ---
Admitting Diagnosis: chest pain Patient Family History: Cerebrovascular accident (CVA) G8 MOTHER (TREMORS) Diabetes mellitus G8 FATHER, Allergies: Coded Allergies: Acetaminophen (Verified Allergy, Unknown, 03/02/23) Amoxicillin (Verified Allergy, Unknown, 03/02/23) Codeine (Verified Allergy, Unknown, 03/02/23) Hydrocodone (Verified Allergy, Unknown, 03/24/24) Ibuprofen (Verified Allergy, Unknown, 03/02/23) Penicillins (Verified Allergy, Unknown, 03/02/23) Statins (Verified Allergy, Unknown, 03/02/23) Tramadol (Verified Allergy, Unknown, 03/02/23) Uncoded Allergies: WALNUTS (Allergy, Unknown, 03/02/23) Home Meds Active Scripts Ciprofloxacin Hcl (Cipro) 500 Mg Tab, 1 TAB PO BID for 14 Days, #28 TAB Prov:BLAIRE MCLEOD TONGUE AND QUARTER STITCHER 10/28/24 Metronidazole (Flagyl) 500 Mg Tab, 500 MG PO TID for 14 Days, #42 TAB Prov:BLAIRE MCLEOD TONGUE AND QUARTER STITCHER 10/28/24 Calcium Carbonate (Tums) 500 Mg Chw, 2-3 TAB PO QHSP PRN, #90 TAB.CHEW prn abdominal pain Prov:YOSHI BONNER MD 09/05/24 Nitroglycerin (Nitrostat) 0.4 Mg Sub, 0.4 MG SL Q12HP PRN, #10 TAB Prov:APOORVA GILLESPIE PAC 08/25/24 Dicyclomine Hcl (BENTYL CAPSULE) 10 Mg Cp, 2 CAP PO Q6HP PRN, #90 CAP 11 Refills prn abdominal pain Prov:YOSHI BONNER MD 08/01/24 Gabapentin (Gabapentin) 300 Mg Cap, 1 CAP PO TID, #90 CAP 5 Refills Prov:MCKENNA ROTH NP 05/24/24 Amiodarone HCl (Amiodarone HCl) 200 Mg Tab, 200 MG PO BID for 30 Days, #60 TAB Prov:MCKENNA ROTH NP 05/24/24 Pantoprazole Sodium Sesquihydr (Pantoprazole Sodium) 40 Mg Tab, 1 TAB PO BID for 30 Days, #60 TAB Prov:MCKENNA ROTH NP 11/15/23 Reported Medications Amlodipine Besylate (Amlodipine Besylate) 10 Mg Tab, 1 TAB PO DAILY 11/13/24 Beclomethasone Dipropionate (Qvar Redihaler) 80 Mcg/Act Aer, 2 PUFF IN BID, AER 03/25/24 Albuterol Sulfate (Albuterol Sulfate Hfa) 108 Mcg/Act Aer, 1 PUFF INH Q4HPRN PRN for SHORTNESS OF BREATH 03/25/24 Apixaban Base (ELIQUIS) 5 Mg Tab, 5 MG PO BID, TAB 10/12/23 Dicyclomine Hcl (Dicyclomine Hcl) 20 Mg Tab, 10 MG PO BID PRN for ABD MUSCLE SPASM, MG 10/12/23 Current Medications Vital Signs SEPSIS Sepsis Screen Date sepsis recognized/suspect: Nov 13, 2024 Time Sepsis recognized/suspect: 1035 Recent Procedure: No On Antibiotic Therapy: No Respiratory Rate >20: No Heart Rate >90: No Temp<36 C (96.8 F) or >38.3 C: No SBP <90 or MAP <65 mmHG: No New Acute Mental Status Change: No Is the patient on CPAP, BIPAP,: No Physician Orders Electrocardigram (11/13/24 10:39) Electrocardigram (11/13/24 11:39) Electrocardigram (11/13/24 13:39) Die Welder (11/13/24 ) Chest Portable (11/13/24 11:11) Admit (11/13/24 16:18) Code Status (11/13/24 16:18) *Consult Dr. Apoorva Pizarro (11/13/24 16:18) Oxygen By Nasal Cannula (11/13/24 16:18) Discharge (11/14/24 07:57) * Debate Director Consult (11/14/24 ) Laboratory Tests Test 11/13/24 11:39 11/14/24 06:51 White Blood Count 3.7 10^3/uL (4.4-10.8) L 4.2 10^3/uL (4.4-10.8) L Results Labs Test 11/14/24 06:51 11/14/24 06:42 11/13/24 16:08 11/13/24 11:39 Range/Units White Blood Count 4.2 L 4.4-10.8 10^3/uL Red Blood Count 4.72 4.5-5.90 10^6/uL Hemoglobin 15.9 13.5-17.5 g/dL Hematocrit 46.0 41.0-53.0 % Mean Corpuscular Volume 97.6 80.0-100.0 fL Mean Corpuscular Hemoglobin 33.7 H 28.0-32.0 pg Mean Corpuscular Hemoglobin Concent 34.5 32.0-36.0 g/dL Red Cell Distribution Width 14.6 H 11.8-14.3 % Platelet Count 213 140-450 10^3/uL Mean Platelet Volume 7.7 6.9-10.8 fL Neutrophils (%) (Auto) 65.2 37.0-80.0 % Lymphocytes (%) (Auto) 19.6 10.0-50.0 % Monocytes (%) (Auto) 12.1 H 0.0-12.0 % Eosinophils (%) (Auto) 2.8 0.0-7.0 % Basophils (%) (Auto) 0.3 0.0-2.0 % Neutrophils # (Auto) 2.7 1.6-8.6 10 ^3/uL Lymphocytes # (Auto) 0.8 0.4-5.4 10 ^3/uL Monocytes # (Auto) 0.5 0-1.3 10 ^3/uL Eosinophils # (Auto) 0.1 0-0.8 10 ^3/uL Basophils # (Auto) 0 0-0.2 10 ^3/uL Nucleated Red Blood Cells 0.1 % Sodium Level 142 136-145 mmol/L Potassium Level 3.6 3.5-5.1 mmol/L Chloride Level 108 H 98-107 mmol/L Carbon Dioxide Level 23 20-31 mmol/L Anion Gap 11 5-15 Blood Urea Nitrogen 10 9-23 mg/dL Creatinine 1.21 0.700-1.30 mg/dL Glomerular Filtration Rate Calc 73 >90 mL/min BUN/Creatinine Ratio 8.3 L 10.0-20.0 Serum Glucose 100 74-106 mg/dL Calcium Level 9.6 8.7-10.4 mg/dL Total Bilirubin 0.7 0.2-1.0 mg/dL Aspartate Amino Transferase (AST) 21 13-40 U/L Alanine Aminotransferase (ALT) 31 7-40 U/L Alkaline Phosphatase 58 46-116 U/L Total Protein 7.1 5.7-8.2 g/dL Albumin 4.7 3.2-4.8 g/dL Troponin I High Sensitivity < 3 L </=54 ng/L B-Type Natriuretic Peptide 25.06 0-100 pg/mL Plan discussed with: Patient Problems List: (1) Chest pain, non-cardiac Status: Acute Assessment & Plan: Subjective History of Present Illness Mr. Lamar presents to the hospital with complaints of chest pain and abdominal pain. The patient has a history of frequent chest pains resulting in multiple hospital admissions. The patient describes experiencing abdominal chest pain, though the exact onset and duration are not specified. In addition to the chest pain, Mr. Drew Sharma reports abdominal pain and diarrhea. The nature, severity, and timing of these symptoms are not detailed in the provided information. Due to the recurrent nature of his chest pain, the patient has been admitted to the hospital multiple times, indicating a persistent or recurring issue. Given the presentation of chest pain and the history of multiple hospital admissions for similar complaints, the decision has been made to admit the patient to the hospital for further evaluation and management. Medical History - Multiple hospitalizations due to frequent chest pains Review of Systems Cardiovascular: Positive for chest pain. Gastrointestinal: Positive for abdominal pain and diarrhea. Objective N/A Assessment & Plan Mr. Lamar presents with recurrent chest pain, described as abdominal chest pain, and recent complaints of abdominal pain and diarrhea. Recurrent chest pain Assessment: Mr. Lamar has a history of frequent hospital admissions due to chest pain. The current episode is described as abdominal chest pain. Given the recurrent nature of the symptoms and the need for repeated hospitalizations, further evaluation is warranted to determine the underlying cause and appropriate management. Plan: - Admit patient to the hospital for further evaluation and management - Cardiology consultation with Dr. Yuri Pizarro - Serial troponin measurements Abdominal pain and diarrhea Assessment: The patient reports recent onset of abdominal pain and diarrhea. These symptoms may be related to the chest pain or could represent a separate gastrointestinal issue. Further evaluation is necessary to determine the etiology and appropriate treatment. Plan: - Evaluate as part of inpatient admission - Further diagnostic workup to be determined during hospitalization MCKENNA ROTH NP Nov 13, 2024 16:29 VERONICA HAYWOOD MD Nov 13, 2024 21:06
[2024-11-13] MEDS ORDERED: ALPRAZolam 0.5 MG TAB PO PRN (16:30)
[2024-11-13] MEDS ORDERED: ONDANSETRON HCL 4 MG/2 ML VIAL IV PRN (16:30)
[2024-11-13] MEDS ORDERED: DOCUSATE SOD 100 MG CAP PO PRN (16:30)
[2024-11-13] MEDS ORDERED: ALBUTEROL SULF 2.5 MG/0.5ML(0.5%) NEB SOLN NEB PRN (16:30)
[2024-11-13] MEDS ORDERED: NITROGLYCERIN 0.4 MG SL TAB SL PRN (16:30)
[2024-11-13] MEDS ORDERED: TEMAZEPAM 15 MG CAP PO PRN (16:30)
[2024-11-13] MEDS ORDERED: AMLO1TAB23 PO (16:40)
--- NOTE | 2024-11-13 20:04 | DVHINCON2 ---
Date of service: Nov 13, 2024 History of Present Illness HPI Patient is a 49-year-old gentleman who presented with atypical chest discomfort. Cardiology is involved for cardiac aspects of care. Patient is known to our practice from outside and before. Home Meds Active Scripts Ciprofloxacin Hcl (Cipro) 500 Mg Tab, 1 TAB PO BID for 14 Days, #28 TAB Prov:EMELYBLAIRE CHILDERS FUNDS TRANSFER CLERK 10/28/24 Metronidazole (Flagyl) 500 Mg Tab, 500 MG PO TID for 14 Days, #42 TAB Prov:EMELYBLAIRE CHILDERS FUNDS TRANSFER CLERK 10/28/24 Calcium Carbonate (Tums) 500 Mg Chw, 2-3 TAB PO QHSP PRN, #90 TAB.CHEW prn abdominal pain Prov:YOSHI BONNER MD 09/05/24 Nitroglycerin (Nitrostat) 0.4 Mg Sub, 0.4 MG SL Q12HP PRN, #10 TAB Prov:APOORVA GILLESPIE PAC 08/25/24 Dicyclomine Hcl (BENTYL CAPSULE) 10 Mg Cp, 2 CAP PO Q6HP PRN, #90 CAP 11 Refills prn abdominal pain Prov:YOSHI BONNER MD 08/01/24 Gabapentin (Gabapentin) 300 Mg Cap, 1 CAP PO TID, #90 CAP 5 Refills Prov:MCKENNA ROTH OUTSIDE SALES INSPECTOR 05/24/24 Amiodarone HCl (Amiodarone HCl) 200 Mg Tab, 200 MG PO BID for 30 Days, #60 TAB Prov:MCKENNA ROTH OUTSIDE SALES INSPECTOR 05/24/24 Pantoprazole Sodium Sesquihydr (Pantoprazole Sodium) 40 Mg Tab, 1 TAB PO BID for 30 Days, #60 TAB Prov:MCKENNA ROTH OUTSIDE SALES INSPECTOR 11/15/23 Reported Medications Amlodipine Besylate (Amlodipine Besylate) 10 Mg Tab, 1 TAB PO DAILY 11/13/24 Beclomethasone Dipropionate (Qvar Redihaler) 80 Mcg/Act Aer, 2 PUFF IN BID, AER 03/25/24 Albuterol Sulfate (Albuterol Sulfate Hfa) 108 Mcg/Act Aer, 1 PUFF INH Q4HPRN PRN for SHORTNESS OF BREATH 03/25/24 Apixaban Base (ELIQUIS) 5 Mg Tab, 5 MG PO BID, TAB 10/12/23 Dicyclomine Hcl (Dicyclomine Hcl) 20 Mg Tab, 10 MG PO BID PRN for ABD MUSCLE SPASM, MG 10/12/23 Past Medical History Others Past medical history includes learning disability, hypertension, paroxysmal AFib (on Eliquis as outpatient), asthma, osteoarthritis, anxiety/depression, BPH, hyperlipidemia (on Repatha as outpatient), migraines, history of vitamin-D deficiency and magnesium deficiency, CKD, GERD, short episodes of SVT and mild mitral valve prolapse. Patient Family History: Cerebrovascular accident (CVA) G8 MOTHER (TREMORS) Diabetes mellitus G8 FATHER, Smoker: No Hx (Negative) Alocohol: None Review of Systems Constitutional: No symptom reported Cardiovascular: Chest Pain (Atypia) Gastrointestinal: Abdominal Pain, Diarrhea All Other Systems 14 point review of system was performed. Relevant findings as per above and as per HPI. Otherwise negative. H&P Exam Vital Signs Vital Signs Date Time Temp Pulse Resp B/P (MAP) Pulse Ox O2 Delivery O2 Flow Rate FiO2 11/13/24 19:42 98.6 61 24 157/87 (110) 97 98.6 11/13/24 12:02 Room Air General Appeara: Well developed Head Exam: Normal inspection Eye Exam: bilateral eye Normal inspection, bilateral eye PERRL Pulmonary/Respiratory: Lungs clear Cardiovascular/Chest: Normal inspection, Regular rate Peripheral Pulses: 2+ carotid (R), 2+ carotid (L), 2+ femoral (R), 2+ femoral (L), 2+ dorsalis pedis (R), 2+ dorsalis pedis (L), 2+ Radial (R), 2+ Radial (L) Abdominal Exam: Normal bowel sounds, Soft, No hepatospenomegaly Neuro/Mental St: Alert, Oriented Appearance: Appropriate appearance Eye contact/ Speech: Cooperative Labs/Xrays Labs Test 11/13/24 16:08 11/13/24 11:39 Range/Units Troponin I High Sensitivity < 3 L </=54 ng/L White Blood Count 3.7 L 4.4-10.8 10^3/uL Red Blood Count 4.68 4.5-5.90 10^6/uL Hemoglobin 15.6 13.5-17.5 g/dL Hematocrit 45.2 41.0-53.0 % Mean Corpuscular Volume 96.7 80.0-100.0 fL Mean Corpuscular Hemoglobin 33.4 H 28.0-32.0 pg Mean Corpuscular Hemoglobin Concent 34.5 32.0-36.0 g/dL Red Cell Distribution Width 13.9 11.8-14.3 % Platelet Count 238 140-450 10^3/uL Mean Platelet Volume 7.4 6.9-10.8 fL Neutrophils (%) (Auto) 62.9 37.0-80.0 % Lymphocytes (%) (Auto) 21.5 10.0-50.0 % Monocytes (%) (Auto) 12.3 H 0.0-12.0 % Eosinophils (%) (Auto) 3.0 0.0-7.0 % Basophils (%) (Auto) 0.3 0.0-2.0 % Neutrophils # (Auto) 2.3 1.6-8.6 10 ^3/uL Lymphocytes # (Auto) 0.8 0.4-5.4 10 ^3/uL Monocytes # (Auto) 0.5 0-1.3 10 ^3/uL Eosinophils # (Auto) 0.1 0-0.8 10 ^3/uL Basophils # (Auto) 0 0-0.2 10 ^3/uL Nucleated Red Blood Cells 0.0 % Sodium Level 144 136-145 mmol/L Potassium Level 4.1 3.5-5.1 mmol/L Chloride Level 113 H 98-107 mmol/L Carbon Dioxide Level 22 20-31 mmol/L Anion Gap 9 5-15 Blood Urea Nitrogen 8 L 9-23 mg/dL Creatinine 1.33 H 0.700-1.30 mg/dL Glomerular Filtration Rate Calc 65 >90 mL/min BUN/Creatinine Ratio 6.0 L 10.0-20.0 Serum Glucose 101 74-106 mg/dL Calcium Level 9.7 8.7-10.4 mg/dL Total Bilirubin 0.4 0.2-1.0 mg/dL Aspartate Amino Transferase (AST) 21 13-40 U/L Alanine Aminotransferase (ALT) 32 7-40 U/L Alkaline Phosphatase 59 46-116 U/L B-Type Natriuretic Peptide 25.06 0-100 pg/mL Total Protein 7.0 5.7-8.2 g/dL Albumin 4.6 3.2-4.8 g/dL Assessment/Plan Plan Patient is a 49-year-old gentleman who presented with atypical chest discomfort. Cardiology is involved for cardiac aspects of care. Patient is known to our practice from outside and before. He mentions that he gets diuretic easily. Does have history of paroxysmal AFib and is on Eliquis/Multaq as outpatient. Denies shortness of breath. Denies palpitations recently. Not in acute distress. No carotid bruit. No JVD. Mucosa is pink and wet. Lungs: Clear to auscultation. Cardiac: Regular, no thrill/gallop, Abdomen is soft, distended. There is no gross mass/hepatomegaly. Abdomen is distended. There is no rebound tenderness. Extremities reveal 1+ edema bilaterally. Dorsalis pedis is 2+ bilateral. Past medical history includes learning disability, hypertension, paroxysmal AFib (on Eliquis as outpatient), asthma, osteoarthritis, anxiety/depression, BPH, hyperlipidemia (on Repatha as outpatient), migraines, history of vitamin-D d eficiency and magnesium deficiency, CKD, GERD, short episodes of SVT and mild mitral valve prolapse. He is allergic to statins and is on Repatha as outpatient. Nuclear stress test of February 2023 did not reveal ischemia and reported ejection fraction of 77%. Echocardiogram of December 24, 2022 (performed in the office) revealed ejection fraction of 65-70%, mild MR/TR/PI and mild mitral valve prolapse Echocardiogram of October 13, 2023 had revealed ejection fraction of 64%, trace MR/TR/PI Echocardiogram of March 25, 2024 revealed ejection fraction of 65-70 percent, there was no wall motion abnormality. There was trace MR/TR/PI. Creatinine: 1.33 Potassium: 4.1 BNP: 25.06 Troponin (high sensitive): <3 - 3 - <3 Chest xry revealed: IMPRESSION: No acute intrathoracic abnormality. EKG revealed: NSR, no specific ST T changes Telemetry has revealed sinus rhythm. Patient is a 49-year-old gentleman who presented with atypical chest pains. Serial high sensitive troponin has been negative. EKG has been nonrevealing. Acute coronary syndrome is not considered. Cardiac-kovacs, does have history of paroxysmal AFib and is on Eliquis/Multaq as outpatient. Atypical chest pain Diarrhea Questionable GI bleeding Paroxysmal AFib Hypertension Depression BPH SVT Cardiac suggestion for management: Management in tele Follow-up electrolytes and kidney function tests and correct abnormalities. Keep potassium above 4 and magnesium above 2 Long-term continuation of full anticoagulation (Eliquis) is advised. No indication to repeat echocardiogram Cardiac kovacs, is stable and can be followed as outpatient Further evaluation and management depends on the above and clinical course A total of 55 minutes was spent reviewing the patient record, examining the patient, making a diagnostic and therapeutic plan, discussing this plan with medical personnel, following up on diagnostic studies and following the patient for clinical stability excluding any and all procedures. At least 50% of this time was spent in direct, [id number] contact. Thank you for allowing me to participate in this patient's care. Further recommendations will depend on patient's clinical course. Please do not hesitate to contact me if you have any questions or concerns. This medical document was created using electronic medical record system with [employer] computerized dictation system. Although this document has been carefully reviewed, there may still be some phonetic and typographical errors. These are as are purely typographical due to the imperfection of the software programs, and do not reflect any compromise in the patient's medical care. Plan discussed with: Patient, Other (primary team: Dr Jordan) APOORVA JON MD Nov 13, 2024 20:04
[2024-11-13 20:55] VITALS: BP 157/87; PULSE 61; RESP 18; TEMP 98.6; O2SAT 98
--- NOTE | 2024-11-13 21:05 | DVHDS2 ---
Discharge Summary Date of Admission Nov 13, 2024 at 16:18 Date of Discharge: Nov 13, 2024 Admitting Diagnosis chest pain Labs/Diagnostic Data: Laboratory Results Test 11/13/24 16:08 11/13/24 11:39 Troponin I High Sensitivity < 3 ng/L (</=54) White Blood Count 3.7 10^3/uL (4.4-10.8) Red Blood Count 4.68 10^6/uL (4.5-5.90) Hemoglobin 15.6 g/dL (13.5-17.5) Hematocrit 45.2 % (41.0-53.0) Mean Corpuscular Volume 96.7 fL (80.0-100.0) Mean Corpuscular Hemoglobin 33.4 pg (28.0-32.0) Mean Corpuscular Hemoglobin Concent 34.5 g/dL (32.0-36.0) Red Cell Distribution Width 13.9 % (11.8-14.3) Platelet Count 238 10^3/uL (140-450) Mean Platelet Volume 7.4 fL (6.9-10.8) Neutrophils (%) (Auto) 62.9 % (37.0-80.0) Lymphocytes (%) (Auto) 21.5 % (10.0-50.0) Monocytes (%) (Auto) 12.3 % (0.0-12.0) Eosinophils (%) (Auto) 3.0 % (0.0-7.0) Basophils (%) (Auto) 0.3 % (0.0-2.0) Neutrophils # (Auto) 2.3 10 ^3/uL (1.6-8.6) Lymphocytes # (Auto) 0.8 10 ^3/uL (0.4-5.4) Monocytes # (Auto) 0.5 10 ^3/uL (0-1.3) Eosinophils # (Auto) 0.1 10 ^3/uL (0-0.8) Basophils # (Auto) 0 10 ^3/uL (0-0.2) Nucleated Red Blood Cells 0.0 % Sodium Level 144 mmol/L (136-145) Potassium Level 4.1 mmol/L (3.5-5.1) Chloride Level 113 mmol/L (98-107) Carbon Dioxide Level 22 mmol/L (20-31) Anion Gap 9 (5-15) Blood Urea Nitrogen 8 mg/dL (9-23) Creatinine 1.33 mg/dL (0.700-1.30) Glomerular Filtration Rate Calc 65 mL/min (>90) BUN/Creatinine Ratio 6.0 (10.0-20.0) Serum Glucose 101 mg/dL (74-106) Calcium Level 9.7 mg/dL (8.7-10.4) Total Bilirubin 0.4 mg/dL (0.2-1.0) Aspartate Amino Transferase (AST) 21 U/L (13-40) Alanine Aminotransferase (ALT) 32 U/L (7-40) Alkaline Phosphatase 59 U/L (46-116) B-Type Natriuretic Peptide 25.06 pg/mL (0-100) Total Protein 7.0 g/dL (5.7-8.2) Albumin 4.6 g/dL (3.2-4.8) Other Laboratory Tests 11/13/24 11:39 Brief Hx & Hospital Course: Subjective History of Present Illness TAMMY thornton presented to the hospital with chest pain and abdominal pain accompanied by diarrhea. The patient was admitted for evaluation and management of these symptoms. During the hospitalization, the patient underwent a comprehensive workup including troponin measurements, EKG, and various laboratory tests. A cardiology consultation was conducted by Dr. Theo Pizarro to assess the chest pain. After thorough evaluation and discussion of the case with Dr. Pizarro, the patient was deemed stable for discharge. As part of the discharge recommendations, the patient was advised to avoid dairy products, which may be related to the abdominal symptoms and diarrhea experienced during admission. Social History - Diet: Recommended to avoid dairy products Review of Systems Cardiovascular: Positive for chest pain. Gastrointestinal: Positive for abdominal pain and diarrhea. Objective Laboratory, Imaging, and Diagnostic Test Results - Troponins: Reviewed - EKG: Reviewed Assessment & Plan TAMMY thornton presented to the hospital with chest pain and abdominal pain with diarrhea, underwent evaluation, and was discharged home. Chest pain Assessment: Patient was admitted to the hospital with chest pain. During hospitalization, troponins and EKG were reviewed. A cardiology consultation was performed by Dr. Theo Pizarro. After evaluation, the patient was cleared for discharge. Plan: - Follow up with primary care in one week - Avoid dairy products Abdominal pain with diarrhea Assessment: Patient presented with abdominal pain and diarrhea. Specific details of the evaluation for this complaint were not provided in the transcript. Plan: - Avoid dairy products - Follow up with primary care in one week - Bobby diet (likely meant "BRAT diet" - Bananas, Rice, Applesauce, [place]) Condition at Discharge: Good Final Diagnosis/Problems List MSK pain Discharge Disposition: Home SNF Discharge Will this Physician continue t: No Discharge Instruct/Medications Activity: No Restrictions, As Tolerated Care Plan: Subjective History of Present Illness TAMMY thornton presented to the hospital with chest pain and abdominal pain accompanied by diarrhea. The patient was admitted for evaluation and management of these symptoms. During the hospitalization, the patient underwent a comprehensive workup including troponin measurements, EKG, and various laboratory tests. A cardiology consultation was conducted by Dr. Theo Pizarro to assess the chest pain. After thorough evaluation and discussion of the case with Dr. Pizarro, the patient was deemed stable for discharge. As part of the discharge recommendations, the patient was advised to avoid dairy products, which may be related to the abdominal symptoms and diarrhea experienced during admission. Social History - Diet: Recommended to avoid dairy products Review of Systems Cardiovascular: Positive for chest pain. Gastrointestinal: Positive for abdominal pain and diarrhea. Objective Laboratory, Imaging, and Diagnostic Test Results - Troponins: Reviewed - EKG: Reviewed Assessment & Plan TAMMY thornton presented to the hospital with chest pain and abdominal pain with diarrhea, underwent evaluation, and was discharged home. Chest pain Assessment: Patient was admitted to the hospital with chest pain. During hospitalization, troponins and EKG were reviewed. A cardiology consultation was performed by Dr. Theo Pizarro. After evaluation, the patient was cleared for discharge. Plan: - Follow up with primary care in one week - Avoid dairy products Abdominal pain with diarrhea Assessment: Patient presented with abdominal pain and diarrhea. Specific details of the evaluation for this complaint were not provided in the transcript. Plan: - Avoid dairy products - Follow up with primary care in one week - Bobby diet (likely meant "BRAT diet" - Bananas, Rice, Applesauce, [place]) Scheduled Amiodarone HCl (Amiodarone HCl), 200 MG PO BID Amlodipine Besylate (Amlodipine Besylate), 1 TAB PO DAILY, (Reported) Apixaban Base (Eliquis), 5 MG PO BID, (Reported) Beclomethasone Dipropionate (Qvar Redihaler), 2 PUFF IN BID, (Reported) Ciprofloxacin Hcl (Cipro), 1 TAB PO BID Gabapentin (Gabapentin), 1 CAP PO TID Metronidazole (Flagyl), 500 MG PO TID Pantoprazole Sodium Sesquihydr (Pantoprazole Sodium), 1 TAB PO BID Scheduled PRN Albuterol Sulfate (Albuterol Sulfate Hfa), 1 PUFF INH Q4HPRN PRN for SHORTNESS OF BREATH, (Reported) Calcium Carbonate (Tums), 2-3 TAB PO QHSP PRN Dicyclomine Hcl (Dicyclomine Hcl), 10 MG PO BID PRN for ABD MUSCLE SPASM, (Reported) Dicyclomine Hcl (Bentyl Capsule), 2 CAP PO Q6HP PRN Nitroglycerin (Nitrostat), 0.4 MG SL Q12HP PRN Discharge Statement: "Patient was advised to return to the ER or call 911 if any headaches, dizziness, shortness of breath, chest pain, abdominal pain, bleeding, fevers, or worsening of medical condition. Patient was counseled about treatment plan, medications, possible side effects, patientverbalized understanding. All questions were answered to the best of my ability. This discharge took greater then 30 minutes in planning, reviewing documentation, counseling the patient, and discussing with other team members." ASSESSMENT ASSESSMENT Assessment VERONICA HAYWOOD MD Nov 13, 2024 21:05
[2024-11-14 05:16] VITALS: PULSE 79; RESP 18; TEMP 98.9; O2SAT 99
[2024-11-14] MEDS: DICYCLOMINE HCL 10 MG CAP PO SCH (05:58)
[2024-11-14] MEDS: PANTOPRAZOLE 40 MG TAB PO SCH (05:58)
[2024-11-14] MEDS: GABAPENTIN 300 MG CAP PO SCH (05:58)
[2024-11-14] MEDS: APIXABAN 5 MG TAB PO SCH (05:59)
[2024-11-14] MEDS: AMIODARONE HCL 200 MG TAB PO SCH (05:59)
[2024-11-14] MEDS: QVAR REDIHALER IN SCH (06:00)
[2024-11-14 07:00] VITALS: O2SAT 98
[2024-11-14 07:22] VITALS: BP 152/83; PULSE 88; RESP 15
[2024-11-14] MEDS: HYDROmorphone HCL 2 MG/ML VL/or syr IV PRN (07:22)
[2024-11-14 07:38] LABS: Hematocrit 46.0 % (41.0-53.0); Hemoglobin 15.9 g/dL (13.5-17.5); Mean Corpuscular Hemoglobin 33.7 pg (28.0-32.0); Mean Corpuscular Volume 97.6 fL (80.0-100.0); Nucleated Red Blood Cells % 0.1 %
[2024-11-14 07:54] LABS: Alanine Aminotransferase 31 U/L (7-40); Albumin 4.7 g/dL (3.2-4.8); Alkaline Phosphatase 58 U/L (46-116); Anion Gap 11 (5-15); BUN/Creatinine Ratio 8.3 (10.0-20.0); Blood Urea Nitrogen 10 mg/dL (9-23); Calcium 9.6 mg/dL (8.7-10.4); Carbon Dioxide 23 mmol/L (20-31); Glucose 100 mg/dL (74-106); Potassium 3.6 mmol/L (3.5-5.1); Sodium 142 mmol/L (136-145); Total Protein 7.1 g/dL (5.7-8.2)
[2024-11-14 07:55] LABS: Bilirubin, Total 0.7 mg/dL (0.2-1.0)
[2024-11-14 07:56] LABS: Chloride 108 mmol/L (98-107)
--- NOTE | 2024-11-14 08:02 | DVHPN2 ---
Progress Note - Dictate Date Seen: Nov 14, 2024 Medical Necessity Reason Pt with a Central, PICC or Fol: No vital signs Vital Sign Date Time Temp Pulse Resp B/P (MAP) Pulse Ox O2 Delivery O2 Flow Rate FiO2 11/14/24 07:22 88 15 152/83 11/14/24 07:00 98 11/14/24 05:16 Room Air* 0 21 11/14/24 05:16 98.9 98.9 medications Current Medications Medications Dose Ordered Sig/Yesenia Route Start Time Stop Time Status Last Admin Dose Admin Temazepam 15 mg QHSP PRN PO 11/13/24 16:30 Ondansetron HCl 4 mg Q4HP PRN IV 11/13/24 16:30 Docusate Sodium 100 mg BIDPRN PRN PO 11/13/24 16:30 Nitroglycerin 0.4 mg Q5MINP PRN SL 11/13/24 16:30 Hydromorphone HCl 0.25 mg Q6HP PRN IV 11/13/24 16:30 11/14/24 07:22 0.25 MG Amiodarone HCl 200 mg BID PO 11/13/24 22:00 11/14/24 05:59 200 MG Apixaban 5 mg BID PO 11/13/24 22:00 11/14/24 05:59 5 MG Dicyclomine HCl 10 mg Q6HR PO 11/13/24 18:00 11/14/24 05:58 10 MG Gabapentin 100 mg TID PO 11/13/24 22:00 11/14/24 05:58 100 MG Pantoprazole Sodium 40 mg BID PO 11/13/24 22:00 11/14/24 05:58 40 MG Patient Own Medication 2 puff BID IN 11/13/24 22:00 Albuterol 2.5 mg Q6HP PRN NEB 11/13/24 16:30 Alprazolam 0.5 mg Q6HP PRN PO 11/13/24 16:30 Amlodipine Besylate 10 mg DAILY PO 11/14/24 10:00 laboratory and microbiology Laboratory Tests 11/14/24 06:51 11/14/24 06:42 Test 11/14/24 06:42 Range/Units Serum Glucose 100 74-106 mg/dL Assessment/Plan Patient is a 49-year-old gentleman who presented with atypical chest discomfort. Cardiology is involved for cardiac aspects of care. Patient is known to our practice from outside and before. He mentions that he gets diuretic easily. Does have history of paroxysmal AFib and is on Eliquis/Multaq as outpatient. Denies shortness of breath. Denies palpitations recently. Not in acute distress. No carotid bruit. No JVD. Mucosa is pink and wet. Lungs: Clear to auscultation. Cardiac: Regular, no thrill/gallop, Abdomen is soft, distended. There is no gross mass/hepatomegaly. Abdomen is distended. T here is no rebound tenderness. Extremities reveal 1+ edema bilaterally. Dorsalis pedis is 2+ bilateral. Past medical history includes learning disability, hypertension, paroxysmal AFib (on Eliquis as outpatient), asthma, osteoarthritis, anxiety/depression, BPH, hyperlipidemia (on Repatha as outpatient), migraines, history of vitamin-D deficiency and magnesium deficiency, CKD, GERD, short episodes of SVT and mild mitral valve prolapse. He is allergic to statins and is on Repatha as outpatient. Nuclear stress test of February 2023 did not reveal ischemia and reported ejection fraction of 77%. Echocardiogram of December 24, 2022 (performed in the office) revealed ejection fraction of 65-70%, mild MR/TR/PI and mild mitral valve prolapse Echocardiogram of October 13, 2023 had revealed ejection fraction of 64%, trace MR/TR/PI Echocardiogram of March 25, 2024 revealed ejection fraction of 65-70 percent, there was no wall motion abnormality. There was trace MR/TR/PI. Creatinine: 1.33 - 1.21 Potassium: 4.1 - 3.6 BNP: 25.06 Troponin (high sensitive): <3 - 3 - <3 Chest xry revealed: IMPRESSION: No acute intrathoracic abnormality. EKG revealed: NSR, no specific ST T changes Telemetry has revealed sinus rhythm. Patient is a 49-year-old gentleman who presented with atypical chest pains. Serial high sensitive troponin has been negative. EKG has been nonrevealing. Acute coronary syndrome is not considered. Cardiac-kovacs, does have history of paroxysmal AFib and is on Eliquis/Multaq as outpatient. Atypical chest pain Diarrhea Questionable GI bleeding Paroxysmal AFib Hypertension Depression BPH SVT Cardiac suggestion for management: Management in tele Follow-up electrolytes and kidney function tests and correct abnormalities. Keep potassium above 4 and magnesium above 2 Long-term continuation of full anticoagulation (Eliquis) is advised. No indication to repeat echocardiogram Cardiac kovacs, is stable and can be followed as outpatient Further evaluation and management depends on the above and clinical course A total of 55 minutes was spent reviewing the patient record, examining the patient, making a diagnostic and therapeutic plan, discussing this plan with medical personnel, following up on diagnostic studies and following the patient for clinical stability excluding any and all procedures. At least 50% of this time was spent in direct, [id number] contact. Thank you for allowing me to participate in this patient's care. Further recommendations will depend on patient's clinical course. Please do not hesitate to contact me if you have any questions or concerns. This medical document was created using electronic medical record system with [employer] computerized dictation system. Although this document has been carefully reviewed, there may still be some phonetic and typographical errors. These areas are purely typographical due to the imperfection of the software programs, and do not reflect any compromise in the patient's medical care. Plan discussed with: Patient, Other (nurse) APOORVA JON MD Nov 14, 2024 08:02
[2024-11-14] MEDS ORDERED: ENOXAPARIN SOD 40 MG/0.4 ML SYRINGE SC SCH (10:00)
--- NOTE | 2024-11-14 19:46 | DVHPN2 ---
Progress Note - Dictate Date Seen: Nov 13, 2024 Has the PT tested + for MRSA If YES, has PT been informed?: No Medical Necessity Reason Pt with a Central, PICC or Fol: No Subjective Patient has not currently complain of any chest pain vital signs Vital Sign Date Time Temp Pulse Resp B/P (MAP) Pulse Ox O2 Delivery O2 Flow Rate FiO2 11/14/24 07:22 88 15 152/83 11/14/24 07:00 98 11/14/24 05:16 Room Air* 0 21 11/14/24 05:16 98.9 98.9 medications Current Medications Medications Dose Ordered Sig/Yesenia Route Start Time Stop Time Status Last Admin Dose Admin Temazepam 15 mg QHSP PRN PO 11/13/24 16:30 Ondansetron HCl 4 mg Q4HP PRN IV 11/13/24 16:30 Docusate Sodium 100 mg BIDPRN PRN PO 11/13/24 16:30 Nitroglycerin 0.4 mg Q5MINP PRN SL 11/13/24 16:30 Hydromorphone HCl 0.25 mg Q6HP PRN IV 11/13/24 16:30 11/14/24 07:22 0.25 MG Amiodarone HCl 200 mg BID PO 11/13/24 22:00 11/14/24 05:59 200 MG Apixaban 5 mg BID PO 11/13/24 22:00 11/14/24 05:59 5 MG Dicyclomine HCl 10 mg Q6HR PO 11/13/24 18:00 11/14/24 05:58 10 MG Gabapentin 100 mg TID PO 11/13/24 22:00 11/14/24 05:58 100 MG Pantoprazole Sodium 40 mg BID PO 11/13/24 22:00 11/14/24 05:58 40 MG Patient Own Medication 2 puff BID IN 11/13/24 22:00 Albuterol 2.5 mg Q6HP PRN NEB 11/13/24 16:30 Alprazolam 0.5 mg Q6HP PRN PO 11/13/24 16:30 Amlodipine Besylate 10 mg DAILY PO 11/14/24 10:00 objective Patient was admitted for unstable and [place]. Patient was seen by cardiology. Patient was seen by Dr. Pizarro. Cardiology has cleared patient for discharge. Unable to arrange for transportation at this late hour. laboratory and microbiology Laboratory Tests 11/14/24 06:51 11/14/24 06:42 Test 11/14/24 06:42 Range/Units Serum Glucose 100 74-106 mg/dL Problem List Unstable angina, Anxiety, Gerd CAD Assessment/Plan Will arrange social media designer in a.m. for transportation. Patient will follow up with her PCP in one week and cardiology in two weeks. Patient will continue same current medication's. Plan discussed with: Patient Critical Care Time(min): 30 Total Time (mins): 35 MCKENNA ROTH NP Nov 14, 2024 19:46
--- NOTE | 2024-11-15 11:35 | ECG ---
[facility] Test Date: 2024-11-13 Test Time: 13:31:05 Pat Name: LUIS MIGUEL JOSHI Department: [facility] ED Room: [address] [place] [address] Gender: M Branch Services Manager: ELIZABETH : 1975 Requested By: NARESH METZGER Order Number: [id number] Reading MD: James Moses Measurements Intervals [place] Rate: 50 P: 48 [place]: 177 QRS: 62 QRSD: 86 T: 11 QT: 459 QTc: 419 Interpretive Statements Sinus rhythm Low voltage, precordial leads Electronically Signed On 11-20-2024 22:25:10 PDT by James Moses Please click the below link to view image of tracing.
--- NOTE | 2024-11-15 19:01 | ECG ---
[facility] Test Date: 2024-11-13 Test Time: 11:50:18 Pat Name: LUIS MIGUEL JOSHI Department[facility] Room: [address] [place] [address] Gender: M Skull Splitter: ELIZABEHT : 1975 Requested By: NARESH METZGER Order Number: [id number] Reading MD: James Moses Measurements Intervals [place] Rate: 53 P: 54 [place]: 156 QRS: 58 QRSD: 95 T: 15 QT: 433 QTc: 407 Interpretive Statements Sinus rhythm Low voltage, precordial leads Electronically Signed On 11-20-2024 22:23:35 PDT by James Moses Please click the below link to view image of tracing.
--- NOTE | 2024-11-16 12:58 | ECG ---
[facility] Test Date: 2024-11-13 Test Time: 10:30:59 Pat Name: LUIS MIGUEL JOSHI Department: [facility] ED Room: [address] [place] [address] Gender: M Senior Controls Technician: dr CRAIG: 1975 Requested By: NARESH METZGER Order Number: [id number] Reading MD: James Moses Measurements Intervals [place] Rate: 54 P: 8 MD: 161 QRS: 25 QRSD: 92 T: 64 QT: 425 QTc: 403 Interpretive Statements Sinus rhythm Borderline low voltage, extremity leads ST elev, probable normal early repol pattern Electronically Signed On 11-20-2024 22:22:32 PDT by James Moses Please click the below link to view image of tracing.
== END 2024-11-14 09:07 | disposition home or self-care (01) | DRG 206 ==
LOC: ER 10:27 → OVERFLOW 16:18 → UNDODEPER 11-14 08:49
PROVIDERS: ADMIT Nurse Practitioner; ATTEND Nurse Practitioner
DX: M94.0 Chondrocostal junction syndrome [Tietze] (principal); I25.110 Atherosclerotic heart disease of native coronary artery with unstable angina pectoris; I48.0 Paroxysmal atrial fibrillation; N40.0 Benign prostatic hyperplasia without lower urinary tract symptoms; G43.909 Migraine, unspecified, not intractable, without status migrainosus; E11.22 Type 2 diabetes mellitus with diabetic chronic kidney disease; E78.5 Hyperlipidemia, unspecified; F32.A Depression, unspecified; F41.9 Anxiety disorder, unspecified; I12.9 Hypertensive chronic kidney disease with stage 1 through stage 4 chronic kidney disease, or unspecified chronic kidney disease; I34.1 Nonrheumatic mitral (valve) prolapse; J45.909 Unspecified asthma, uncomplicated; K21.9 Gastro-esophageal reflux disease without esophagitis; N18.9 Chronic kidney disease, unspecified; Z79.01 Long term (current) use of anticoagulants; Z79.899 Other long term (current) drug therapy; Z82.3 Family history of stroke; Z86.73 Personal history of transient ischemic attack (TIA), and cerebral infarction without residual deficits; Z87.891 Personal history of nicotine dependence; Z88.0 Allergy status to penicillin; Z88.5 Allergy status to narcotic agent; Z88.6 Allergy status to analgesic agent; Z88.8 Allergy status to other drugs, medicaments and biological substances; K58.0 Irritable bowel syndrome with diarrhea
CPT/HCPCS: 36415; 71045; 80053; 83880; 84484; 85025; 93005; G0378

== ENCOUNTER 2024-11-16 18:42 | Emergency (ER) | payer OTHER ==
[~2024-11-16] VITALS: Ht 172.7 cm; Wt 68.2 kg
[~2024-11-16 18:42] MED LIST changes: +AMLO1TAB23 PO
[2024-11-16 19:43] LABS: Hematocrit 47.2 % (41.0-53.0); Hemoglobin 16.5 g/dL (13.5-17.5); Mean Corpuscular Hemoglobin 34.2 pg (28.0-32.0); Mean Corpuscular Volume 97.8 fL (80.0-100.0); Nucleated Red Blood Cells % 0.2 %
[2024-11-16] MEDS: HYDROcodone-ACET 5/325MG TAB PO ONE (19:47)
[2024-11-16 19:51] VITALS: PULSE 80; RESP 18; O2SAT 96
[2024-11-16 19:56] LABS: Alanine Aminotransferase 33 U/L (7-40); Alkaline Phosphatase 70 U/L (46-116); Anion Gap 13 (5-15); BUN/Creatinine Ratio 10.9 (10.0-20.0); Bilirubin, Total 0.4 mg/dL (0.2-1.0); Blood Urea Nitrogen 14 mg/dL (9-23); Calcium 9.5 mg/dL (8.7-10.4); Carbon Dioxide 23 mmol/L (20-31); Potassium 3.6 mmol/L (3.5-5.1); Total Protein 7.1 g/dL (5.7-8.2)
[2024-11-16 20:05] LABS: Albumin 5.0 g/dL (3.2-4.8); Chloride 111 mmol/L (98-107); Glucose 110 mg/dL (74-106); Sodium 147 mmol/L (136-145)
[2024-11-16 20:15] LABS: Lipase 37 U/L (12-53)
--- NOTE | 2024-11-16 21:26 | ED.PDOC ---
HPI Comments This patient is a 49-year-old male who frequently visits our ED due to chest pain concerns who returns today via EMS for chest pain concerns. Patient states the pain has been substernal and intermittent but continuous for the past four days. Patient describes the pain as pressure-like. Patient denies any fever nausea or vomiting. Patient does state he has a history of AFib. Vital signs were stable on arrival. Patient received nitro EN route. Chief Complaint: Chest Pain Time Seen by MD: 18:53 Primary Care Provider: AYLEEN Reviewed Notes: Nurses Notes, Beater Engineer Helper Notes Allergies: Coded Allergies: Acetaminophen (Verified Allergy, Unknown, 03/02/23) Amoxicillin (Verified Allergy, Unknown, 03/02/23) Codeine (Verified Allergy, Unknown, 03/02/23) Hydrocodone (Verified Allergy, Unknown, 03/24/24) Ibuprofen (Verified Allergy, Unknown, 03/02/23) Penicillins (Verified Allergy, Unknown, 03/02/23) Statins (Verified Allergy, Unknown, 03/02/23) Tramadol (Verified Allergy, Unknown, 03/02/23) Uncoded Allergies: WALNUTS (Allergy, Unknown, 03/02/23) Home Meds Active Scripts Ciprofloxacin Hcl (Cipro) 500 Mg Tab, 1 TAB PO BID for 14 Days, #28 TAB Prov:BLAIRE MCLEOD [facility] 10/28/24 Metronidazole (Flagyl) 500 Mg Tab, 500 MG PO TID for 14 Days, #42 TAB Prov:BLAIRE MCLEOD DIRECTOR OF ANESTHESIA SERVICES 10/28/24 Calcium Carbonate (Tums) 500 Mg Chw, 2-3 TAB PO QHSP PRN, #90 TAB.CHEW prn abdominal pain Prov:YOSHI BONNER MD 09/05/24 Nitroglycerin (Nitrostat) 0.4 Mg Sub, 0.4 MG SL Q12HP PRN, #10 TAB Prov:APOORVA GILLESPIE PAC 08/25/24 Dicyclomine Hcl (BENTYL CAPSULE) 10 Mg Cp, 2 CAP PO Q6HP PRN, #90 CAP 11 Refills prn abdominal pain Prov:YOSHI BONNER MD 08/01/24 Gabapentin (Gabapentin) 300 Mg Cap, 1 CAP PO TID, #90 CAP 5 Refills Prov:MCKENNA ROTH SIGN DESIGNER 05/24/24 Amiodarone HCl (Amiodarone HCl) 200 Mg Tab, 200 MG PO BID for 30 Days, #60 TAB Prov:MCKENNA ROTH SIGN DESIGNER 05/24/24 Pantoprazole Sodium Sesquihydr (Pantoprazole Sodium) 40 Mg Tab, 1 TAB PO BID for 30 Days, #60 TAB Prov:MCKENNA ROTH SIGN DESIGNER 11/15/23 Reported Medications Amlodipine Besylate (Amlodipine Besylate) 10 Mg Tab, 1 TAB PO DAILY 11/13/24 Beclomethasone Dipropionate (Qvar Redihaler) 80 Mcg/Act Aer, 2 PUFF IN BID, AER 03/25/24 Albuterol Sulfate (Albuterol Sulfate Hfa) 108 Mcg/Act Aer, 1 PUFF INH Q4HPRN PRN for SHORTNESS OF BREATH 03/25/24 Apixaban Base (ELIQUIS) 5 Mg Tab, 5 MG PO BID, TAB 10/12/23 Dicyclomine Hcl (Dicyclomine Hcl) 20 Mg Tab, 10 MG PO BID PRN for ABD MUSCLE SPASM, MG 10/12/23 Information Source: Patient, Emergency Med Personnel Mode of Arrival: EMS Severity: Moderate Timing: Days Duration: Since onset Prehospital treatment: Investigation Division Captain Location: Substernal Quality: Pressure, Tightness Onset: At Rest Cardiac Risk Factors: None History of: Similar pain in past, Other (Patient states a history of AFib) Past Medical History PAST MEDICAL HISTORY: AFIB, Anxiety, Arthritis, Asthma, GERD, High Lipids, HTN Surgical History: Denies all surgeries Family History Family History: Reviewed,noncontributory to illness, Unknown Social History Smoker: Non-Smoker Alcohol: Denies ETOH Use Drugs: Denies Drug Use Lives In: Home Constitutional: denies: chills, diaphoresis, fatigue, fever, malaise, sweats, weakness, others EENTM: denies: blurred vision, double vision, ear bleeding, ear discharge, ear drainage, ear pain, ear ringing, eye pain, eye redness, hearing loss, mouth pain, mouth swelling, nasal discharge, nose bleeding, nose congestion, nose pain, photophobia, tearing, throat pain, throat swelling, voice changes, others Respiratory: denies: cough, hemoptysis, orthopnea, SOB at rest, shortness of breath, SOB with excertion, stridor, wheezing, others Cardiovascular: reports: chest pain; denies: dizzy spells, diaphoresis, Dyspnea on exertion, edema, irregular heart beat, left arm pain, lightheadedness, palpitations, PND, syncope, others Gastrointestinal: denies: abdomen distended, abdominal pain, blood streaked bowels, constipated, diarrhea, dysphagia, difficulty swallowing, hematemesis, melena, nausea, poor appetite, poor fluid intake, rectal bleeding, rectal pain, vomiting, others Genitourinary: denies: burning, dysuria, flank pain, frequency, hematuria, incontinence, penile discharge, penile sore, pain, testicle pain, testicle swelling, urgency, others Neurological: denies: dizziness, fainting, headache, left sided numbness, left sided weakness, numbness, paresthesia, pre-existing deficit, right sided numbness, right sided weakness, seizure, speech problems, tingling, tremors, weakness, others Musculoskeletal: denies: back pain, gout, joint pain, joint swelling, muscle pain, muscle stiffness, neck pain, others Integumetry: denies: bruises, change in color, change in hair/nails, dryness, laceration, lesions, lumps, rash, wounds, others Allergic/Immunocompromised: denies: Difficulty Healing, Frequent Infections, Hives, Itching, others Hematologic/Lymphatic: denies: anemia, blood clots, easy bleeding, easy bruising, swollen glands, others Endocrine: denies: excessive hunger, excessive sweating, excessive thirst, excessive urination, flushing, intolerance to cold, intolerance to heat, unexplained weight gain, unexplained weight loss, others Psychiatric: reports: anxiety; denies: bipolar disorder, depression, hopeless, panic disorder, schizophrenia, sleepless, suicidal, others Physical Exam General Appearance: Mild Distress (Patient distress at time of evaluation. Patient did not look toxic. Patient was mildly histrionic.), Normal HEENT: Normal ENT Inspection, Pharynx Normal, TMs Normal Neck: Full Range of Motion, Non-Tender, Normal, Normal Inspection Respiratory: Chest Non-Tender, Lungs Clear, No Accessory Muscle Use, No Respiratory Distress, Normal Breath Sounds, Other (Unremarkable auscultation bilateral lung andre.) Cardiovascular: No Edema, No JVD, No Murmur, No Gallop, Normal Peripheral Pulses, Regular Rate/Rhythm, Other (Unremarkable cardiac evaluation.) Breast Exam: Deferred Gastrointestinal: No Organomegaly, Non Tender, No Pulsatile Mass, Normal Bowel Sounds, Soft Genitalia: Deferred Pelvic: Deferred Rectal: Deferred Extremities: No calf tenderness, Normal capillary refill, Normal inspection, Normal range of motion, Non-tender, No pedal edema Neurologic: Alert Cerebellar Function: NOT DONE Reflexes: NOT DONE Skin: Dry, Normal Color, Warm Lymphatic: No Adenopathy Was a procedure done? Was a procedure done?: No CP Differential Dx Differential Diagnosis: A-fib, A-Flutter, Atrial Dysrhythmia, AV Block 1st Degree, MS Differential Diagnosis: CHF Differential Diagnosis: Chest Wall Pain, Costochondritis X-Ray, Labs, Meds, VS Vital Signs Date Time Temp Pulse Resp B/P (MAP) Pulse Ox O2 Delivery O2 Flow Rate FiO2 11/16/24 19:51 98.7 80 18 139/75 (96) 96 98.7 11/16/24 19:51 80 18 96 Room Air* 0 21 11/16/24 19:41 66 11/16/24 18:49 76 11/16/24 18:43 98.0 87 18 110/75 98 98.0 Lab Test 11/16/24 20:32 11/16/24 19:29 Range/Units Troponin I High Sensitivity 6 5 </=54 ng/L White Blood Count 5.4 # 4.4-10.8 10^3/uL Red Blood Count 4.83 4.5-5.90 10^6/uL Hemoglobin 16.5 13.5-17.5 g/dL Hematocrit 47.2 41.0-53.0 % Mean Corpuscular Volume 97.8 80.0-100.0 fL Mean Corpuscular Hemoglobin 34.2 H 28.0-32.0 pg Mean Corpuscular Hemoglobin Concent 35.0 32.0-36.0 g/dL Red Cell Distribution Width 14.3 11.8-14.3 % Platelet Count 261 140-450 10^3/uL Mean Platelet Volume 7.5 6.9-10.8 fL Neutrophils (%) (Auto) 66.1 37.0-80.0 % Lymphocytes (%) (Auto) 20.0 10.0-50.0 % Monocytes (%) (Auto) 11.6 0.0-12.0 % Eosinophils (%) (Auto) 1.8 0.0-7.0 % Basophils (%) (Auto) 0.5 0.0-2.0 % Neutrophils # (Auto) 3.5 1.6-8.6 10 ^3/uL Lymphocytes # (Auto) 1.1 0.4-5.4 10 ^3/uL Monocytes # (Auto) 0.6 0-1.3 10 ^3/uL Eosinophils # (Auto) 0.1 0-0.8 10 ^3/uL Basophils # (Auto) 0 0-0.2 10 ^3/uL Nucleated Red Blood Cells 0.2 % Sodium Level 147 #H 136-145 mmol/L Potassium Level 3.6 3.5-5.1 mmol/L Chloride Level 111 H 98-107 mmol/L Carbon Dioxide Level 23 20-31 mmol/L Anion Gap 13 5-15 Blood Urea Nitrogen 14 9-23 mg/dL Creatinine 1.28 0.700-1.30 mg/dL Glomerular Filtration Rate Calc 68 >90 mL/min BUN/Creatinine Ratio 10.9 10.0-20.0 Serum Glucose 110 H 74-106 mg/dL Calcium Level 9.5 8.7-10.4 mg/dL Total Bilirubin 0.4 0.2-1.0 mg/dL Aspartate Amino Transferase (AST) 26 13-40 U/L Alanine Aminotransferase (ALT) 33 7-40 U/L Alkaline Phosphatase 70 46-116 U/L B-Type Natriuretic Peptide 32.39 0-100 pg/mL Total Protein 7.1 5.7-8.2 g/dL Albumin 5.0 H 3.2-4.8 g/dL Lipase 37 12-53 U/L Plasma/Serum Blood Alcohol < 3.0 <10 mg/dL X-Ray, Labs, Meds, VS Comment All studies performed the ED were evaluated by me personally. Serum studies were unremarkable for any systemic process including unremarkable cardiac markers. Urine hand up in returned at time of this note. EKG at arrival showed a sinus rhythm with a rate of 76 as well as nonspecific intraventricular conduction delay concerns. Second EKG revealed a sinus rhythm with a rate of 66. WA interval of 165 and QT interval 410. Normal EKG. Patient has recurrent chest pain concerns and needs to continue follow up with his ug designer for long-term management. Time of 1ST Reevaluation: 21:24 Reevaluation 1ST: Improved Consultation: PCP, Cardiology Patient Education/Counseling: Diagnosis, Treatment Family Education/Counseling: Diagnosis, Treatment SEPSIS Sepsis Screen Date sepsis recognized/suspect: Nov 16, 2024 Time Sepsis recognized/suspect: 1847 Recent Procedure: No On Antibiotic Therapy: No Respiratory Rate >20: No Heart Rate >90: No Temp<36 C (96.8 F) or >38.3 C: No SBP <90 or MAP <65 mmHG: No New Acute Mental Status Change: No Is the patient on CPAP, BIPAP,: No Physician Orders Electrocardigram (11/16/24 18:49) Urinalysis (11/16/24 19:00) Drug Screen (11/16/24 19:00) Troponin-I Hs (11/16/24 22:00) Vital Signs Date Time Temp Pulse Resp B/P (MAP) Pulse Ox O2 Delivery O2 Flow Rate FiO2 11/16/24 19:51 98.7 80 18 139/75 (96) 96 98.7 11/16/24 19:51 80 18 96 Room Air* 0 21 11/16/24 19:41 66 11/16/24 18:49 76 11/16/24 18:43 98.0 87 18 110/75 98 98.0 Laboratory Tests Test 11/16/24 19:29 White Blood Count 5.4 10^3/uL (4.4-10.8) # Departure 1 Departure Time of Disposition: 21:25 Impression: Primary Impression: Chest pain Disposition: HOME / SELF CARE / HOMELESS Condition: Stable Additional Instructions: Advised patient to follow up with his ug designer for continued evaluation and management. Discharged With: Self, Friend Critical Care Note Critical Care Time?: No Stability Stability form required: No Heart Score Heart Score: Heart Score Response (Comments) Value History Slightly Suspicious 0 EKG Normal 0 Age 45-64 1 Risk Factors 1 or 2 risk factors 1 Troponin Normal limit 0 Total 2 APOORVA GILLESPIE Nov 16, 2024 21:25
[2024-11-16 23:23] VITALS: BP 145/84; PULSE 85; RESP 16; TEMP 98; O2SAT 97
--- NOTE | 2024-11-17 06:11 | ECG ---
[facility] Test Date: 2024-11-16 Test Time: 19:41:01 Pat Name: LUIS MIGUEL JOSHI Department: Room: Gender: M Typewriter Assembler: KARL : 1975 Requested By: EMERGENCY EMERGENCY Order Number: [id number] Reading MD: James Moses Measurements Intervals [place] Rate: 66 P: 44 [place]: 165 QRS: 55 QRSD: 87 T: 11 QT: 410 QTc: 430 Interpretive Statements Sinus rhythm Electronically Signed On 11-20-2024 22:46:29 PDT by James Moses Please click the below link to view image of tracing.
== END 2024-11-16 23:28 | disposition home or self-care (01) ==
LOC: ER 18:42 → EDBD 18:42 → ER 23:28
DX: R07.89 Other chest pain (principal); F41.9 Anxiety disorder, unspecified; J45.909 Unspecified asthma, uncomplicated; I48.91 Unspecified atrial fibrillation; M19.90 Unspecified osteoarthritis, unspecified site; I10 Essential (primary) hypertension; Z79.01 Long term (current) use of anticoagulants; E78.5 Hyperlipidemia, unspecified; Z88.8 Allergy status to other drugs, medicaments and biological substances; Z88.0 Allergy status to penicillin; Z88.6 Allergy status to analgesic agent; Z79.899 Other long term (current) drug therapy; Z79.51 Long term (current) use of inhaled steroids; Z88.5 Allergy status to narcotic agent
CPT/HCPCS: 36415; 80053; 80320; 83690; 83880; 84484; 85025; 93005

== ENCOUNTER 2024-11-28 17:30 | Inpatient (IN) | payer OTHER ==
[~2024-11-28] VITALS: Ht 175.3 cm; Wt 90.4 kg
--- NOTE | 2024-11-28 17:44 | ECG ---
[facility] Test Date: 2024-11-28 Test Time: 17:34:39 Pat Name: LUIS MIGUEL JOSHI Department: [facility] ED Patient ID: [id number] Room: 0285T Gender: M Nut And Bolt Assembler: ángel : 1975 Requested By: GHASSAN MORGAN Order Number: [id number] Reading MD: James Moses Measurements Intervals [place] Rate: 71 P: 50 [place]: 164 QRS: 59 QRSD: 87 T: 10 QT: 377 QTc: 410 Interpretive Statements Sinus rhythm Electronically Signed On 11-29-2024 18:47:35 PDT by James Moses Please click the below link to view image of tracing.
--- NOTE | 2024-11-28 17:48 | ED.PDOC ---
History of Present Illness HPI Comments 49-year-old male who comes in with chief complaint of chest pain today. The patient states that he was admitted last week at [facility]. The patient then left and went to [facility] where he was treated. Following that, the patient was then admitted to [facility] for chest pain. The patient is now scheduled for an angiogram towards the middle of next month. He comes in now because he was having chest pain all day. He states that it is substernal and nonradiating. The chest pain is associated with some shortness for breath but no nausea or vomiting. He did take nitroglycerin which helped to relieve the pain. He did not take any aspirin today. The patient states that the pain started out as an 8/10 today. He was able to ambulate into the emergency department's today. Chief Complaint: Chest Pain Time Seen by MD: 17:37 Primary Care Provider: AYLEEN Reviewed Notes: Nurses Notes, Medications, Allergies (Allergies listed above) Allergies: Coded Allergies: Acetaminophen (Verified Allergy, Unknown, 03/02/23) Amoxicillin (Verified Allergy, Unknown, 03/02/23) Codeine (Verified Allergy, Unknown, 03/02/23) Hydrocodone (Verified Allergy, Unknown, 03/24/24) Ibuprofen (Verified Allergy, Unknown, 03/02/23) Penicillins (Verified Allergy, Unknown, 03/02/23) Statins (Verified Allergy, Unknown, 03/02/23) Tramadol (Verified Allergy, Unknown, 03/02/23) Uncoded Allergies: WALNUTS (Allergy, Unknown, 03/02/23) Home Meds Active Scripts Ciprofloxacin Hcl (Cipro) 500 Mg Tab, 1 TAB PO BID for 14 Days, #28 TAB Prov:BLAIRE MCLEOD 10/28/24 Metronidazole (Flagyl) 500 Mg Tab, 500 MG PO TID for 14 Days, #42 TAB Prov:BLAIRE MCLEOD 10/28/24 Calcium Carbonate (Tums) 500 Mg Chw, 2-3 TAB PO QHSP PRN, #90 TAB.CHEW prn abdominal pain Prov:YOSHI BONNER MD 09/05/24 Nitroglycerin (Nitrostat) 0.4 Mg Sub, 0.4 MG SL Q12HP PRN, #10 TAB Prov:APOORVA GILLESPIE PAC 08/25/24 Dicyclomine Hcl (BENTYL CAPSULE) 10 Mg Cp, 2 CAP PO Q6HP PRN, #90 CAP 11 Refills prn abdominal pain Prov:YOSHI BONNER MD 08/01/24 Gabapentin (Gabapentin) 300 Mg Cap, 1 CAP PO TID, #90 CAP 5 Refills Prov:MCKENNA ROTH BUS AND SYS INTEGRATION SENIOR MANAGER 05/24/24 Amiodarone HCl (Amiodarone HCl) 200 Mg Tab, 200 MG PO BID for 30 Days, #60 TAB Prov:MCKENNA ROTH BUS AND SYS INTEGRATION SENIOR MANAGER 05/24/24 Pantoprazole Sodium Sesquihydr (Pantoprazole Sodium) 40 Mg Tab, 1 TAB PO BID for 30 Days, #60 TAB Prov:MCKENNA ROTH BUS AND SYS INTEGRATION SENIOR MANAGER 11/15/23 Reported Medications Amlodipine Besylate (Amlodipine Besylate) 10 Mg Tab, 1 TAB PO DAILY 11/13/24 Beclomethasone Dipropionate (Qvar Redihaler) 80 Mcg/Act Aer, 2 PUFF IN BID, AER 03/25/24 Albuterol Sulfate (Albuterol Sulfate Hfa) 108 Mcg/Act Aer, 1 PUFF INH Q4HPRN PRN for SHORTNESS OF BREATH 03/25/24 Apixaban Base (ELIQUIS) 5 Mg Tab, 5 MG PO BID, TAB 10/12/23 Dicyclomine Hcl (Dicyclomine Hcl) 20 Mg Tab, 10 MG PO BID PRN for ABD MUSCLE SPASM, MG 10/12/23 Information Source: Patient Mode of Arrival: Ambulatory Severity: Moderate Timing: Hours Duration: Since onset Prehospital treatment: NTG Location: The chest pain is substernal in nature and nonradiating Associated signs and symptoms Shortness for breath but no nausea or vomiting Past Medical History PAST MEDICAL HISTORY: AFIB, Anxiety, Arthritis, Asthma, GERD, High Lipids, HTN Surgical History: Denies all surgeries Family History Family History: Reviewed,noncontributory to illness, Family hx of heart tim, Family hx of stroke Social History Smoker: Non-Smoker Alcohol: Denies ETOH Use Drugs: Denies Drug Use Lives In: Home Constitutional: denies: chills, diaphoresis, fatigue, fever, malaise, sweats, weakness, others EENTM: denies: blurred vision, double vision, ear bleeding, ear discharge, ear drainage, ear pain, ear ringing, eye pain, eye redness, hearing loss, mouth pain, mouth swelling, nasal discharge, nose bleeding, nose congestion, nose pain, photophobia, tearing, throat pain, throat swelling, voice changes, others Respiratory: reports: shortness of breath; denies: cough, hemoptysis, orthopnea, SOB at rest, SOB with excertion, stridor, wheezing, others Cardiovascular: reports: chest pain; denies: dizzy spells, diaphoresis, Dyspnea on exertion, edema, irregular heart beat, left arm pain, lightheadedness, palpitations, PND, syncope, others Gastrointestinal: denies: abdomen distended, abdominal pain, blood streaked bowels, constipated, diarrhea, dysphagia, difficulty swallowing, hematemesis, melena, nausea, poor appetite, poor fluid intake, rectal bleeding, rectal pain, vomiting, others Genitourinary: denies: burning, dysuria, flank pain, frequency, hematuria, incontinence, penile discharge, penile sore, pain, testicle pain, testicle swelling, urgency, others Neurological: denies: dizziness, fainting, headache, left sided numbness, left sided weakness, numbness, paresthesia, pre-existing deficit, right sided numbness, right sided weakness, seizure, speech problems, tingling, tremors, weakness, others Musculoskeletal: denies: back pain, gout, joint pain, joint swelling, muscle pain, muscle stiffness, neck pain, others Integumetry: denies: bruises, change in color, change in hair/nails, dryness, laceration, lesions, lumps, rash, wounds, others Allergic/Immunocompromised: denies: Difficulty Healing, Frequent Infections, Hives, Itching, others Hematologic/Lymphatic: denies: anemia, blood clots, easy bleeding, easy bruising, swollen glands, others Endocrine: denies: excessive hunger, excessive sweating, excessive thirst, excessive urination, flushing, intolerance to cold, intolerance to heat, unexplained weight gain, unexplained weight loss, others Psychiatric: denies: anxiety, bipolar disorder, depression, hopeless, panic d isorder, schizophrenia, sleepless, suicidal, others Physical Exam General Appearance: Moderate Distress HEENT: Normal ENT Inspection, Pharynx Normal, TMs Normal Neck: Full Range of Motion, Non-Tender, Normal, Normal Inspection Respiratory: Chest Non-Tender, Lungs Clear, No Accessory Muscle Use, No Respiratory Distress, Normal Breath Sounds Cardiovascular: No Edema, No JVD, No Murmur, No Gallop, Normal Peripheral Pulses, Regular Rate/Rhythm Breast Exam: Deferred Gastrointestinal: No Organomegaly, Non Tender, No Pulsatile Mass, Normal Bowel Sounds, Soft Genitalia: Deferred Pelvic: Deferred Rectal: Deferred Extremities: No calf tenderness, Normal capillary refill, Normal inspection, Normal range of motion, Non-tender, No pedal edema Musculoskeletal : Apperance: Normal Neurologic: Alert, analyst geochemical prospecting II-XII nml as Tested, No Motor Deficits, Normal Affect, Normal Mood, No Sensory Deficits Cerebellar Function: Normal Reflexes: Normal Skin: Dry, Normal Color, Warm Lymphatic: No Adenopathy Was a procedure done? Was a procedure done?: No EKG EKG : Pulse Rate (adult): 71 [place]: Normal Cardiac Rhythm: NSR Block: None ST: Nonsp Differential Dx Considerations may include: ACS, CO, generalized weakness, electrolyte imbalance X-Ray, Labs, Meds, VS Vital Signs Date Time Temp Pulse Resp B/P (MAP) Pulse Ox O2 Delivery O2 Flow Rate FiO2 11/28/24 18:31 69 11/28/24 17:48 71 11/28/24 17:34 98.2 71 18 131/85 97 98.2 11/28/24 17:34 71 Lab Test 11/28/24 17:57 Range/Units White Blood Count 4.9 4.4-10.8 10^3/uL Red Blood Count 4.66 4.5-5.90 10^6/uL Hemoglobin 15.6 13.5-17.5 g/dL Hematocrit 45.7 41.0-53.0 % Mean Corpuscular Volume 98.0 80.0-100.0 fL Mean Corpuscular Hemoglobin 33.4 H 28.0-32.0 pg Mean Corpuscular Hemoglobin Concent 34.0 32.0-36.0 g/dL Red Cell Distribution Width 14.4 H 11.8-14.3 % Platelet Count 228 140-450 10^3/uL Mean Platelet Volume 7.9 6.9-10.8 fL Neutrophils (%) (Auto) 57.2 37.0-80.0 % Lymphocytes (%) (Auto) 27.5 10.0-50.0 % Monocytes (%) (Auto) 11.9 0.0-12.0 % Eosinophils (%) (Auto) 3.0 0.0-7.0 % Basophils (%) (Auto) 0.4 0.0-2.0 % Neutrophils # (Auto) 2.8 1.6-8.6 10 ^3/uL Lymphocytes # (Auto) 1.3 0.4-5.4 10 ^3/uL Monocytes # (Auto) 0.6 0-1.3 10 ^3/uL Eosinophils # (Auto) 0.1 0-0.8 10 ^3/uL Basophils # (Auto) 0 0-0.2 10 ^3/uL Nucleated Red Blood Cells 0.2 % Sodium Level 144 136-145 mmol/L Potassium Level 4.5 3.5-5.1 mmol/L Chloride Level 111 H 98-107 mmol/L Carbon Dioxide Level 22 20-31 mmol/L Anion Gap 11 5-15 Blood Urea Nitrogen 18 9-23 mg/dL Creatinine 1.17 0.700-1.30 mg/dL Glomerular Filtration Rate Calc 76 >90 mL/min BUN/Creatinine Ratio 15.4 10.0-20.0 Serum Glucose 98 74-106 mg/dL Calcium Level 9.1 8.7-10.4 mg/dL Troponin I High Sensitivity 3 L </=54 ng/L B-Type Natriuretic Peptide Pending IV Hep-Lock was established The patient was given aspirin here in the emergency department's The patient's troponin level is negative The patient's CBC and chemistry panel are within normal limits The patient's chest x-ray shows: No sign of any abnormalities The patient understands and agrees with the management A cardiology consult will be obtained Images Reviewed?: Images reviewed and evaluated by me Time of 1ST Reevaluation: 17:47 Reevaluation 1ST: Unchanged Patient Education/Counseling: Diagnosis, Treatment, Prognosis Family Education/Counseling: No Family Present SEPSIS Sepsis Screen Date sepsis recognized/suspect: Nov 28, 2024 Time Sepsis recognized/suspect: 1733 Recent Procedure: No On Antibiotic Therapy: No Respiratory Rate >20: No Heart Rate >90: No Temp<36 C (96.8 F) or >38.3 C: No SBP <90 or MAP <65 mmHG: No New Acute Mental Status Change: No Is the patient on CPAP, BIPAP,: Yes Physician Orders B-Type Natriuretic Peptide (11/28/24 17:41) Heplock Iv (11/28/24 17:41) Linderman Operator (11/28/24 17:41) Blood Pressure (11/28/24 17:41) Pulse Oximetry (11/28/24 17:41) Chest Two Views Routine (11/28/24 17:41) Urinalysis (11/28/24 17:41) Troponin-I Hs (11/28/24 18:41) Troponin-I Hs (11/28/24 20:41) Electrocardigram (11/28/24 18:41) Electrocardigram (11/28/24 20:41) Vital Signs Date Time Temp Pulse Resp B/P (MAP) Pulse Ox O2 Delivery O2 Flow Rate FiO2 11/28/24 18:31 69 11/28/24 17:48 71 11/28/24 17:34 98.2 71 18 131/85 97 98.2 11/28/24 17:34 71 Laboratory Tests Test 11/28/24 17:57 White Blood Count 4.9 10^3/uL (4.4-10.8) Departure 1 Departure Time of Disposition: 18:49 Impression: Primary Impression: Acute coronary syndrome Disposition: 09 ADMITTED INPATIENT Admit to: Tele Condition: Fair Critical Care Note Critical Care Time?: Yes (45 min-critical care time only) Stability Stability form required: Yes Unstable for transfer: Telemetry monitoring (Telemetry monitoring required), ED Physician Assesment (Clinical assesment) Heart Score Heart Score: Heart Score Response (Comments) Value History Moderate Suspicious 1 EKG Normal 0 Age 45-64 1 Risk Factors >3 or Hx ASHD 2 Troponin Normal limit 0 Total 4 GHASSAN MORGAN MD Nov 28, 2024 17:48
[2024-11-28 18:17] LABS: Hematocrit 45.7 % (41.0-53.0); Hemoglobin 15.6 g/dL (13.5-17.5); Mean Corpuscular Hemoglobin 33.4 pg (28.0-32.0); Mean Corpuscular Volume 98.0 fL (80.0-100.0); Nucleated Red Blood Cells % 0.2 %; Potassium 4.5 mmol/L (3.5-5.1); Sodium 144 mmol/L (136-145)
[2024-11-28 18:18] LABS: Anion Gap 11 (5-15); Calcium 9.1 mg/dL (8.7-10.4); Carbon Dioxide 22 mmol/L (20-31); Chloride 111 mmol/L (98-107)
--- NOTE | 2024-11-28 18:22 | DVH ---
EXAM: XY CHEST TWO VIEWS ROUTINE CLINICAL HISTORY: CP COMPARISON: XY CHEST PORTABLE on DOS: 11/13/24, XY CHEST PORTABLE on DOS: 10/26/24, XY CHEST PORTABLE o n DOS: 08/25/24, XY CHEST XRAY 1 VIEW on DOS: 07/12/24, XY CHEST PORTABLE on DOS: 07/11/24 TECHNIQUE: Frontal and lateral view of the chest was obtained FINDINGS: Lines and Tubes: None Lungs: No focal consolidation. Pleura: No effusion. No pneumothorax. Cardiomediastinal contours: Unremarkable Bones: No acute osseous abnormality. IMPRESSION: No acute cardiopulmonary disease.
[2024-11-28 18:23] LABS: BUN/Creatinine Ratio 15.4 (10.0-20.0); Blood Urea Nitrogen 18 mg/dL (9-23); Glucose 98 mg/dL (74-106)
[2024-11-28] MEDS ORDERED: MORPHINE SULFATE INJ 2 MG/ml SYRG IV PRN (21:45)
[2024-11-28] MEDS ORDERED: ACETAMINOPHEN 325 MG TAB PO PRN (21:45)
[2024-11-28 23:29] VITALS: BP 150/73; PULSE 74; RESP 20; O2SAT 96
[2024-11-28 23:53] LABS: Urine Protein, UAD Negative (Negative)
[2024-11-29] VITALS (15 sets, daily range): BP systolic 128–149; BP diastolic 48–100; PULSE 61–75; RESP 13–18; TEMP 97.2–99.5; O2SAT 95–99
[2024-11-29] MEDS: HYDROmorphone HCL 2 MG/ML VL/or syr IV PRN (05:13)
[2024-11-29] MEDS ORDERED: ESCI5TAB PO (06:33)
[2024-11-29] MEDS ORDERED: TRAZ-228 PO (06:39)
[2024-11-29 07:06] LABS: Hematocrit 41.0 % (41.0-53.0); Hemoglobin 14.4 g/dL (13.5-17.5); Mean Corpuscular Hemoglobin 33.8 pg (28.0-32.0); Mean Corpuscular Volume 96.1 fL (80.0-100.0); Nucleated Red Blood Cells % 0.1 %
[2024-11-29 07:17] LABS: Albumin 4.1 g/dL (3.2-4.8); Alkaline Phosphatase 71 U/L (46-116); Anion Gap 10 (5-15); BUN/Creatinine Ratio 12.9 (10.0-20.0); Bilirubin, Total 0.6 mg/dL (0.2-1.0); Blood Urea Nitrogen 15 mg/dL (9-23); Carbon Dioxide 24 mmol/L (20-31); Glucose 103 mg/dL (74-106); Potassium 4.0 mmol/L (3.5-5.1); Sodium 143 mmol/L (136-145); Total Protein 6.2 g/dL (5.7-8.2)
[2024-11-29 07:18] LABS: Calcium 8.9 mg/dL (8.7-10.4)
[2024-11-29 07:32] LABS: Alanine Aminotransferase 46 U/L (7-40); Chloride 109 mmol/L (98-107)
[2024-11-29] MEDS: NITROGLYCERIN 0.4 MG SL TAB SL PRN (09:22)
--- NOTE | 2024-11-29 09:34 | DVHINCON2 ---
Date of service: Nov 29, 2024 History of Present Illness HPI Patient is 49 year old male who presented to hospital for chest pain. Chest pain has been happening frequently. He has had repeated ED visits and hospitalizations for chest pain. He is known to our practice from outside and before. He is actually waiting for arrangement for Elective Cardiac cath for further evaluation. Does have history of Paroxysmal Atrial fibrillation, for which he takes Eliquis. Last dose of Eliquis was yesterday morning. Denies recent palpitation. Home Meds Active Scripts Ciprofloxacin Hcl (Cipro) 500 Mg Tab, 1 TAB PO BID for 14 Days, #28 TAB Prov:BLAIRE MCLEOD CONCRETE PAVING SUPERVISOR 10/28/24 Metronidazole (Flagyl) 500 Mg Tab, 500 MG PO TID for 14 Days, #42 TAB Prov:BLAIRE MCLEOD CONCRETE PAVING SUPERVISOR 10/28/24 Calcium Carbonate (Tums) 500 Mg Chw, 2-3 TAB PO QHSP PRN, #90 TAB.CHEW prn abdominal pain Prov:YOSHI BONNER MD 09/05/24 Nitroglycerin (Nitrostat) 0.4 Mg Sub, 0.4 MG SL Q12HP PRN, #10 TAB Prov:APOORVA GILLESPIE PAC 08/25/24 Dicyclomine Hcl (BENTYL CAPSULE) 10 Mg Cp, 2 CAP PO Q6HP PRN, #90 CAP 11 Refills prn abdominal pain Prov:YOSHI BONNER MD 08/01/24 Gabapentin (Gabapentin) 300 Mg Cap, 1 CAP PO TID, #90 CAP 5 Refills Prov:MCKENNA ROTH NP 05/24/24 Amiodarone HCl (Amiodarone HCl) 200 Mg Tab, 200 MG PO BID for 30 Days, #60 TAB Prov:MCKENNA ROTH NP 05/24/24 Pantoprazole Sodium Sesquihydr (Pantoprazole Sodium) 40 Mg Tab, 1 TAB PO BID for 30 Days, #60 TAB Prov:MCKENNA ROTH SHEARER PRINTED CIRCUIT BOARDS 11/15/23 Reported Medications Trazodone Hcl (Trazodone Hcl) 100 Mg Tab, 50 MG PO, TAB 11/29/24 Escitalopram Oxalate (Lexapro) 5 Mg Tab, 5 MG PO DAILY for depresion, TAB 11/29/24 Amlodipine Besylate (Amlodipine Besylate) 10 Mg Tab, 1 TAB PO DAILY 11/13/24 Beclomethasone Dipropionate (Qvar Redihaler) 80 Mcg/Act Aer, 2 PUFF IN BID, AER 03/25/24 Albuterol Sulfate (Albuterol Sulfate Hfa) 108 Mcg/Act Aer, 1 PUFF INH Q4HPRN PRN for SHORTNESS OF BREATH 03/25/24 Apixaban Base (ELIQUIS) 5 Mg Tab, 5 MG PO BID, TAB 10/12/23 Dicyclomine Hcl (Dicyclomine Hcl) 20 Mg Tab, 10 MG PO BID PRN for ABD MUSCLE SPASM, MG 10/12/23 Past Medical History Others Past medical history includes learning disability, hypertension, paroxysmal AFib (on Eliquis as outpatient), asthma, osteoarthritis, anxiety/depression, BPH, hyperlipidemia (on Repatha as outpatient), migraines, history of vitamin-D deficiency and magnesium deficiency, CKD, GERD, short episodes of SVT and mild mitral valve prolapse. Does have history of repeated abdominal pain / distens ion: for which follows with GI He is allergic to statins and is on Repatha as outpatient. Patient Family History: Cerebrovascular accident (CVA) G8 MOTHER (TREMORS) Diabetes mellitus G8 FATHER, Alocohol: None Drugs: None Review of Systems Constitutional: No symptom reported Ears, Nose, & Throat: No symptom reported Eyes: No symptom reported Cardiovascular: Chest Pain All Other Systems 14 point review of system was performed. Relevant findings as per above and as per HPI. Otherwise, negative H&P Exam Vital Signs Vital Signs Date Time Temp Pulse Resp B/P (MAP) Pulse Ox O2 Delivery O2 Flow Rate FiO2 11/29/24 09:22 148/90 11/29/24 08:32 97.2 75 18 97 97.2 11/29/24 08:00 Room Air* 0 21 General Appeara: Well developed Head Exam: Normal inspection Eye Exam: bilateral eye PERRL Nasal Exam: Normal inspection Mouth: Normal Inspection Pulmonary/Respiratory: Lungs clear Cardiovascular/Chest: Regular rate, Systolic murmur Peripheral Pulses: 2+ carotid (R), 2+ carotid (L), 2+ femoral (R), 2+ femoral (L), 2+ dorsalis pedis (R), 2+ dorsalis pedis (L), 2+ Radial (R), 2+ Radial (L) Abdominal Exam: Normal bowel sounds, Soft, No tenderness, Other (mildly distended) Neuro/Mental St: Alert, Oriented Appearance: Appropriate appearance Eye contact/ Speech: Cooperative Thoughts/Psych: Normal thought pattern Labs/Xrays Labs Test 11/29/24 06:25 11/28/24 23:38 11/28/24 18:45 11/28/24 17:57 Range/Units White Blood Count 4.2 L 4.4-10.8 10^3/uL Red Blood Count 4.26 L 4.5-5.90 10^6/uL Hemoglobin 14.4 13.5-17.5 g/dL Hematocrit 41.0 # 41.0-53.0 % Mean Corpuscular Volume 96.1 80.0-100.0 fL Mean Corpuscular Hemoglobin 33.8 H 28.0-32.0 pg Mean Corpuscular Hemoglobin Concent 35.2 32.0-36.0 g/dL Red Cell Distribution Width 14.0 11.8-14.3 % Platelet Count 193 140-450 10^3/uL Mean Platelet Volume 7.7 6.9-10.8 fL Neutrophils (%) (Auto) 58.6 37.0-80.0 % Lymphocytes (%) (Auto) 28.9 10.0-50.0 % Monocytes (%) (Auto) 8.9 0.0-12.0 % Eosinophils (%) (Auto) 3.2 0.0-7.0 % Basophils (%) (Auto) 0.4 0.0-2.0 % Neutrophils # (Auto) 2.5 1.6-8.6 10 ^3/uL Lymphocytes # (Auto) 1.2 0.4-5.4 10 ^3/uL Monocytes # (Auto) 0.4 0-1.3 10 ^3/uL Eosinophils # (Auto) 0.1 0-0.8 10 ^3/uL Basophils # (Auto) 0 0-0.2 10 ^3/uL Nucleated Red Blood Cells 0.1 % Sodium Level 143 136-145 mmol/L Potassium Level 4.0 3.5-5.1 mmol/L Chloride Level 109 H 98-107 mmol/L Carbon Dioxide Level 24 20-31 mmol/L Anion Gap 10 5-15 Blood Urea Nitrogen 15 9-23 mg/dL Creatinine 1.16 0.700-1.30 mg/dL Glomerular Filtration Rate Calc 77 >90 mL/min BUN/Creatinine Ratio 12.9 10.0-20.0 Serum Glucose 103 74-106 mg/dL Calcium Level 8.9 8.7-10.4 mg/dL Total Bilirubin 0.6 0.2-1.0 mg/dL Aspartate Amino Transferase (AST) 31 13-40 U/L Alanine Aminotransferase (ALT) 46 H 7-40 U/L Alkaline Phosphatase 71 46-116 U/L Total Protein 6.2 5.7-8.2 g/dL Albumin 4.1 3.2-4.8 g/dL Urine Color Light-yellow Yellow Urine Clarity Clear Clear Urine pH 5.0 5.0-9.0 Urine Specific [place] 1.023 1.001-1.035 Urine Protein Negative Negative Urine Ketones Negative Negative Urine Blood Negative Negative /uL Urine Nitrite Negative Negative Urine Bilirubin Negative Negative Urine Urobilinogen Normal Negative mg/dL Urine Leukocyte Esterase Negative Negative /uL Urine RBC <1 0 - 3 /hpf Urine Microscopic WBC < 1 0-3 /HPF Urine Squamous Epithelial Cells None seen <5 /hpf Urine Bacteria None seen None Seen /hpf Urine Glucose Normal Normal mg/dL Troponin I High Sensitivity 3 L </=54 ng/L B-Type Natriuretic Peptide 29.09 0-100 pg/mL Assessment/Plan Plan Patient is 49 year old male who presented to hospital for chest pain. Chest pain has been happening frequently. He has had repeated ED visits and hospitalizations for chest pain. He is known to our practice from outside and before. He is actually waiting for arrangement for Elective Cardiac cath for further evaluation. Does have history of Paroxysmal Atrial fibrillation, for which he takes Eliquis. Last dose of Eliquis was yesterday morning. Denies recent palpitation. Not in acute distress. No carotid bruit. No JVD. Mucosa is pink and wet. Lungs: Clear to auscultation. Cardiac: Regular, no thrill/gallop, Abdomen is soft, distended. There is no gross mass/hepatomegaly. Abdomen is distended. There is no rebound tenderness. Extremities reveal 1+ edema bilaterally. Dorsalis pedis is 2+ bilateral. Past medical history includes learning disability, hypertension, paroxysmal AFib (on Eliquis as outpatient), asthma, osteoarthritis, anxiety/depression, BPH, hyperlipidemia (on Repatha as outpatient), migraines, history of vitamin-D deficiency and magnesium deficiency, CKD, GERD, short episodes of SVT and mild mitral valve prolapse. Does have history of repeated abdominal pain / distension: for which follows with GI He is allergic to statins and is on Repatha as outpatient. Nuclear stress test of February 2023 did not reveal ischemia and reported ejection fraction of 77%. Echocardiogram of December 24, 2022 (performed in the office) revealed ejection fraction of 65-70%, mild MR/TR/PI and mild mitral valve prolapse Echocardiogram of October 13, 2023 had revealed ejection fraction of 64%, trace MR/TR/PI Echocardiogram of March 25, 2024 revealed ejection fraction of 65-70 percent, there was no wall motion abnormality. There was trace MR/TR/PI. Echocardiogram of 2024 (performed in [facility]) revealed: EF of 65%, no wall motion abnormalities and trace TR Creatinine: 1.17 - 1.16 Potassium: 4.5 - 4.0 BNP: 29.09 Troponin (high sensitive): - 3 - 3 Chest xry revealed: IMPRESSION: No acute cardiopulmonary disease. EKG revealed: NSR, no specific ST T changes Telemetry has revealed sinus rhythm. Patient is a 49-year-old gentleman who presented with atypical chest pains. Serial high sensitive troponin has been negative. EKG has been nonrevealing. Has had repeated presentation to different ED and Hospitals for repeated chest pains. There has been a plan for Elective Cardiac Cath for patient. Eventhough Chest pain, rule out Unstable Angina Paroxysmal AFib Hypertension Depression BPH SVT Cardiac suggestion for management: Management in tele Follow-up electrolytes and kidney function tests and correct abnormalities. Keep potassium above 4 and magnesium above 2 Hold Eliquis Cardiac cath, this afternoon. Thank you for consultation Further evaluation and management depends on the above and clinical course A total of 75 minutes was spent reviewing the patient record, examining the patient, making a diagnostic and therapeutic plan, discussing this plan with medical personnel, following up on diagnostic studies and following the patient for clinical stability excluding any and all procedures. At least 50% of this time was spent in direct, [id number] contact. Thank you for allowing me to participate in this patient's care. Further recommendations will depend on patient's clinical course. Please do not hesitate to contact me if you have any questions or concerns. This medical document was created using electronic medical record system with [employer] computerized dictation system. Although this document has been carefully reviewed, there may still be some phonetic and typographical errors. These areas are purely typographical due to the imperfection of the software programs, and do not reflect any compromise in the patient's medical care. Plan discussed with: Patient, Other (nurse) APOORVA JON MD Nov 29, 2024 09:34
--- NOTE | 2024-11-29 09:34 | ECG ---
[facility] Test Date: 2024-11-28 Test Time: 18:31:20 Pat Name: LUIS MIGUEL JOSHI Department: ON LICENSE OF [facility] ED Patient ID: [facility] LICENSE OF [facility]-[id number] Room: [facility]5T B Gender: M Burnishing Machine Operator: sky : 1975 Requested By: GHASSAN MORGAN Order Number: [id number] Reading MD: James Moses Measurements Intervals [place] Rate: 69 P: 55 AL: 163 QRS: 34 QRSD: 86 T: 33 QT: 390 QTc: 418 Interpretive Statements Sinus rhythm Electronically Signed On 11-29-2024 18:47:36 PDT by James Moses Please click the below link to view image of tracing.
[2024-11-29 12:17] LABS: INR 1.0 (0.9-1.15); Partial Thromboplastin Time 24.2 SEC (24.5-34.5); Prothrombin Time 10.6 sec (9.3-11.8)
--- NOTE | 2024-11-29 12:34 | DVHHP2 ---
Admitting Diagnosis: chest pain History of Present Illness 49-year-old male who comes in with chief complaint of chest pain today. The patient states that he was admitted last week at [facility]. The patient then left and went to [facility] where he was treated. Following that, the patient was then admitted to [facility] for chest pain. The patient is now scheduled for an angiogram towards the middle of next month. He comes in now because he was having chest pain all day. He states that it is substernal and nonradiating. The chest pain is associated with some shortness for breath but no nausea or vomiting. He did take nitroglycerin which helped to relieve the pain. He did not take any aspirin today. The patient states that the pain started out as an 8 today. He was able to ambulate into the emergency department's today. While in the emergency department the patient was evaluated by the provider, As per provider: Labs, vital signs, and imagining monitored. Patient will be admitted for further evaluation and treatment. I discussed admission with the patient/family and is in agreement to treatment plan. Patient Family History: Cerebrovascular accident (CVA) G8 MOTHER (TREMORS) Diabetes mellitus G8 FATHER, Allergies: Coded Allergies: Acetaminophen (Verified Allergy, Unknown, 03/02/23) Amoxicillin (Verified Allergy, Unknown, 03/02/23) Codeine (Verified Allergy, Unknown, 03/02/23) Hydrocodone (Verified Allergy, Unknown, 03/24/24) Ibuprofen (Verified Allergy, Unknown, 03/02/23) Penicillins (Verified Allergy, Unknown, 03/02/23) Statins (Verified Allergy, Unknown, 03/02/23) Tramadol (Verified Allergy, Unknown, 03/02/23) Uncoded Allergies: WALNUTS (Allergy, Unknown, 03/02/23) Home Meds Active Scripts Ciprofloxacin Hcl (Cipro) 500 Mg Tab, 1 TAB PO BID for 14 Days, #28 TAB Prov:BLAIRE MCLEOD 10/28/24 Metronidazole (Flagyl) 500 Mg Tab, 500 MG PO TID for 14 Days, #42 TAB Prov:BLAIRE MCLEOD 10/28/24 Calcium Carbonate (Tums) 500 Mg Chw, 2-3 TAB PO QHSP PRN, #90 TAB.CHEW prn abdominal pain Prov:YOSHI BONNER MD 09/05/24 Nitroglycerin (Nitrostat) 0.4 Mg Sub, 0.4 MG SL Q12HP PRN, #10 TAB Prov:VERNAAPOORVA PAC 08/25/24 Dicyclomine Hcl (BENTYL CAPSULE) 10 Mg Cp, 2 CAP PO Q6HP PRN, #90 CAP 11 Refills prn abdominal pain Prov:YOSHI BONNER MD 08/01/24 Gabapentin (Gabapentin) 300 Mg Cap, 1 CAP PO TID, #90 CAP 5 Refills Prov:GONZALEZMCKENNA ETCHER APPRENTICE PHOTOENGRAVING 05/24/24 Amiodarone HCl (Amiodarone HCl) 200 Mg Tab, 200 MG PO BID for 30 Days, #60 TAB Prov:MCKENNA ROTH ETCHER APPRENTICE PHOTOENGRAVING 05/24/24 Pantoprazole Sodium Sesquihydr (Pantoprazole Sodium) 40 Mg Tab, 1 TAB PO BID for 30 Days, #60 TAB Prov:MCKENNA ROTH ETCHER APPRENTICE PH[employer]ENGRAVING 11/15/23 Reported Medications Trazodone Hcl (Trazodone Hcl) 100 Mg Tab, 50 MG PO, TAB 11/29/24 Escitalopram Oxalate (Lexapro) 5 Mg Tab, 5 MG PO DAILY for depresion, TAB 11/29/24 Amlodipine Besylate (Amlodipine Besylate) 10 Mg Tab, 1 TAB PO DAILY 11/13/24 Beclomethasone Dipropionate (Qvar Redihaler) 80 Mcg/Act Aer, 2 PUFF IN BID, AER 03/25/24 Albuterol Sulfate (Albuterol Sulfate Hfa) 108 Mcg/Act Aer, 1 PUFF INH Q4HPRN PRN for SHORTNESS OF BREATH 03/25/24 Apixaban Base (ELIQUIS) 5 Mg Tab, 5 MG PO BID, TAB 10/12/23 Dicyclomine Hcl (Dicyclomine Hcl) 20 Mg Tab, 10 MG PO BID PRN for ABD MUSCLE SPASM, MG 10/12/23 Current Medications Current Medications Medications (Trade) Dose Ordered Sig/Yesenia Route PRN Reason Start Time Stop Time Status Last Admin Acetaminophen (Tylenol Tablet) 325 mg Q4HP PRN PO MILD PAIN (1-3 PAIN SCALE) 11/28/24 21:45 Ondansetron HCl (Zofran) 4 mg Q4HP PRN IV NAUSEA / VOMITING 11/28/24 21:45 Docusate Sodium (Colace Capsule) 100 mg BIDPRN PRN PO FOR CONSTIPATION 11/28/24 21:45 Nitroglycerin (Ntrostat Sublingual) 0.4 mg Q5MINP PRN SL FOR CHEST PAIN 11/28/24 21:45 11/29/24 09:45 Morphine Sulfate 2 mg Q30M PRN IV FOR CHEST PAIN 11/28/24 21:45 Hydromorphone HCl (Dilaudid Injection) 0.25 mg Q6HPRN PRN IV MODERATE PAIN (4-6 PAIN SCALE) 11/28/24 21:45 11/29/24 18:50 Apixaban (Eliquis) 5 mg BID PO 11/29/24 22:00 Review of Systems Constitutional: denies chills, denies fever, denies malaise Eyes: denies eye pain, denies vision change ENT: denies ear pain, denies headache, denies nasal congestion, denies painful swallowing, denies voice change Cardiovascular: denies chest pain, denies edema, denies orthopnea, denies palpitations, denies paroxysmal nocturnal dyspnea Respiratory: denies cough, denies shortness of breath Gastrointestinal: denies constipation, denies diarrhea, denies nausea, denies vomiting Genitourinary: denies dysuria, denies frequent urination, denies urethral discharge Musculoskeletal: denies back pain, denies joint pain, denies muscle pain Skin: denies bruising, denies itching, denies rash Neurological: denies focal weakness, denies headache, denies sensory changes Psychiatric: denies anxiety, denies depression Endocrine: denies polydipsia, denies polyuria Hematologic/Lymphatic: denies easy bleeding, denies easy bruising, denies enlarged lymph nodes Allergic/Immunologic: denies allergy, denies hives Vital Signs Vital Signs Date Time Temp Pulse Resp B/P (MAP) Pulse Ox O2 Delivery O2 Flow Rate FiO2 11/29/24 18:50 75 20 159/93 11/29/24 17:17 97.6 99 97.6 11/29/24 08:00 Room Air* 0 21 Physical Exam General Appearance: alert, no distress HEENT: EOMI, PERRLA, normal external inspect of ears, no icterus, no nasal drainage Neck: no carotid bruit, no jugular venous distention (JVD), no lymphadenopathy Chest: normal thorax Respiratory: clear to auscultation, normal air movement Cardiovascular: regular rate and rhythm, no diastolic murmur, no jugular venous distention (JVD), no rub, no systolic murmur Abdominal: soft, no hepatomegaly, no mass, no splenomegaly, no tenderness Genitourinary: grossly normal external Musculoskeletal: no joint tenderness, no swelling Extremities: normal pulses, no calf tenderness, no clubbing, no cyanosis, no edema Skin: no bruising, no jaundice, no rash Neurological: alert, No focal deficit SEPSIS Sepsis Screen Date sepsis recognized/suspect: Nov 28, 2024 Time Sepsis recognized/suspect: 1733 Recent Procedure: No On Antibiotic Therapy: No Respiratory Rate >20: No Heart Rate >90: No Temp<36 C (96.8 F) or >38.3 C: No SBP <90 or MAP <65 mmHG: No New Acute Mental Status Change: No Is the patient on CPAP, BIPAP,: Yes Physician Orders Heplock Iv (11/28/24 17:41) Civil Service Worker (11/28/24 17:41) Blood Pressure (11/28/24 17:41) Pulse Oximetry (11/28/24 17:41) Chest Two Views Routine (11/28/24 17:41) Electrocardigram (11/28/24 17:41) Electrocardigram (11/28/24 18:41) Admit (11/28/24 21:42) Acetaminophen Tablet (Tylenol Tablet) (11/28/24 21:45) Ondansetron Hcl (Zofran) (11/28/24 21:45) Docusate Sodium Capsule (Colace Capsule) (11/28/24 21:45) Cardiac Diet-2gna,Lofat,Lochol (11/29/24 Breakfast) Nitroglycerin Sublingual (Ntrostat Subli (11/28/24 21:45) Morphine Sulfate Injection (11/28/24 21:45) Stat Ekg For Chest Pain (11/28/24 21:42) Notify Md Of Changes From Base (11/28/24 21:42) Delinquency Counselor For 24 Hours (11/28/24 21:42) Emergency Dysrhythmia Protocol (11/28/24 21:42) Rhythm Strips Once Every Shift (11/28/24 21:42) Oxygen By Nasal Cannula (11/28/24 21:42) Hydromorphone Injection (Dilaudid Inject (11/28/24 21:45) *Consult Dr. Apoorva Pizarro (11/28/24 21:47) Electrocardigram (11/28/24 22:15) Cl Left Heart Cath (11/29/24 09:22) Apixaban (Eliquis) (11/29/24 22:00) Post Cath Vital Signs Q 15min (11/29/24 ) Post Cath Activity Protocol (11/29/24 16:16) Communication Order (11/29/24 16:16) Vital Signs Date Time Temp Pulse Resp B/P (MAP) Pulse Ox O2 Delivery O2 Flow Rate FiO2 11/29/24 18:50 75 20 159/93 11/29/24 17:17 97.6 68 17 140/85 (103) 99 97.6 11/29/24 17:08 72 16 148/76 (100) 96 11/29/24 16:52 70 17 138/77 (97) 96 11/29/24 16:37 66 16 128/85 (99) 97 11/29/24 16:22 71 17 135/81 (99) 96 11/29/24 16:07 98.2 71 17 148/75 (99) 96 98.2 11/29/24 13:41 66 16 152/96 11/29/24 12:33 97.8 65 16 138/78 (98) 98 97.8 11/29/24 12:33 65 16 138/78 11/29/24 10:45 125/77 11/29/24 10:22 139/91 11/29/24 09:45 127/74 11/29/24 09:22 148/90 11/29/24 08:32 97.2 75 18 148/90 (109) 97 97.2 11/29/24 08:00 75 11/29/24 08:00 62 18 98 Room Air* 0 21 11/29/24 05:43 66 16 138/60 11/29/24 05:13 70 16 140/70 11/29/24 05:00 98.3 64 17 149/84 (105) 97 98.3 11/29/24 03:59 98.3 64 16 149/84 (105) 97 98.3 11/29/24 03:59 64 18 95 Room Air* 0 21 11/29/24 02:15 99.5 70 18 129/81 (97) 95 99.5 11/29/24 00:00 79 11/29/24 00:00 75 13 147/48 (81) 99 11/28/24 23:29 74 20 150/73 (98) 96 11/28/24 22:21 68 11/28/24 22:12 98.5 65 20 153/92 (112) 97 98.5 11/28/24 18:31 69 11/28/24 17:48 71 11/28/24 17:34 98.2 71 18 131/85 97 98.2 11/28/24 17:34 71 Laboratory Tests Test 11/28/24 17:57 11/29/24 06:25 White Blood Count 4.9 10^3/uL (4.4-10.8) 4.2 10^3/uL (4.4-10.8) L Medications Medications Dose Ordered Sig/Yesenia Route Start Time Stop Time Status Last Admin Dose Admin Fentanyl Citrate 100 mcg STK-MED ONCE .ROUTE 11/29/24 15:36 11/29/24 15:33 DC 11/29/24 15:36 Heparin Sodium (Porcine) 5,000 units STK-MED ONCE .ROUTE 11/29/24 15:35 11/29/24 15:32 DC 11/29/24 15:35 Midazolam HCl 2 mg STK-MED ONCE .ROUTE 11/29/24 15:36 11/29/24 15:33 DC 11/29/24 15:36 Results Labs Test 11/29/24 11:30 11/29/24 06:25 11/28/24 23:38 11/28/24 18:45 Range/Units Prothrombin Time 10.6 9.3-11.8 sec Prothrombin Time INR 1.00 0.9-1.15 Activated Partial Thromboplast Time 24.2 L 24.5-34.5 SEC White Blood Count 4.2 L 4.4-10.8 10^3/uL Red Blood Count 4.26 L 4.5-5.90 10^6/uL Hemoglobin 14.4 13.5-17.5 g/dL Hematocrit 41.0 # 41.0-53.0 % Mean Corpuscular Volume 96.1 80.0-100.0 fL Mean Corpuscular Hemoglobin 33.8 H 28.0-32.0 pg Mean Corpuscular Hemoglobin Concent 35.2 32.0-36.0 g/dL Red Cell Distribution Width 14.0 11.8-14.3 % Platelet Count 193 140-450 10^3/uL Mean Platelet Volume 7.7 6.9-10.8 fL Neutrophils (%) (Auto) 58.6 37.0-80.0 % Lymphocytes (%) (Auto) 28.9 10.0-50.0 % Monocytes (%) (Auto) 8.9 0.0-12.0 % Eosinophils (%) (Auto) 3.2 0.0-7.0 % Basophils (%) (Auto) 0.4 0.0-2.0 % Neutrophils # (Auto) 2.5 1.6-8.6 10 ^3/uL Lymphocytes # (Auto) 1.2 0.4-5.4 10 ^3/uL Monocytes # (Auto) 0.4 0-1.3 10 ^3/uL Eosinophils # (Auto) 0.1 0-0.8 10 ^3/uL Basophils # (Auto) 0 0-0.2 10 ^3/uL Nucleated Red Blood Cells 0.1 % Sodium Level 143 136-145 mmol/L Potassium Level 4.0 3.5-5.1 mmol/L Chloride Level 109 H 98-107 mmol/L Carbon Dioxide Level 24 20-31 mmol/L Anion Gap 10 5-15 Blood Urea Nitrogen 15 9-23 mg/dL Creatinine 1.16 0.700-1.30 mg/dL Glomerular Filtration Rate Calc 77 >90 mL/min BUN/Creatinine Ratio 12.9 10.0-20.0 Serum Glucose 103 74-106 mg/dL Calcium Level 8.9 8.7-10.4 mg/dL Total Bilirubin 0.6 0.2-1.0 mg/dL Aspartate Amino Transferase (AST) 31 13-40 U/L Alanine Aminotransferase (ALT) 46 H 7-40 U/L Alkaline Phosphatase 71 46-116 U/L Total Protein 6.2 5.7-8.2 g/dL Albumin 4.1 3.2-4.8 g/dL Urine Color Light-yellow Yellow Urine Clarity Clear Clear Urine pH 5.0 5.0-9.0 Urine Specific [place] 1.023 1.001-1.035 Urine Protein Negative Negative Urine Ketones Negative Negative Urine Blood Negative Negative /uL Urine Nitrite Negative Negative Urine Bilirubin Negative Negative Urine Urobilinogen Normal Negative mg/dL Urine Leukocyte Esterase Negative Negative /uL Urine RBC <1 0 - 3 /hpf Urine Microscopic WBC < 1 0-3 /HPF Urine Squamous Epithelial Cells None seen <5 /hpf Urine Bacteria None seen None Seen /hpf Urine Glucose Normal Normal mg/dL Troponin I High Sensitivity 3 L </=54 ng/L Test 11/28/24 17:57 Range/Units B-Type Natriuretic Peptide 29.09 0-100 pg/mL Microbiology Date/Time Source Procedure Growth Status 11/29/24 03:30 Nose MRSA Screen - Final Complete Plan 1. Unstable angina Monitor, Monitor on tele, DVT prophylaxis 2. CAD Monitor,cardiology consult, plan for heart cath, DVT prophylaxis 3. Paroxysmal atrial fibrillation Monitor,cardiology consult, DVT prophylaxis 4. anxiety and depression Monitor, restart home meds 5. GERD Monitor, PPI Plan discussed with: Patient, Other MCKENNA ROTH NP Nov 29, 2024 12:34
--- NOTE | 2024-11-29 12:35 | DVHPN2 ---
Progress Note - Dictate Date Seen: Nov 29, 2024 Medical Necessity Reason Pt with a Central, PICC or Fol: No vital signs Vital Sign Date Time Temp Pulse Resp B/P (MAP) Pulse Ox O2 Delivery O2 Flow Rate FiO2 11/29/24 12:33 97.8 65 16 138/78 (98) 98 97.8 11/29/24 08:00 Room Air* 0 21 Total Intake and Output 11/28/24 11/28/24 11/29/24 15:00 23:00 07:00 Intake Total 0 ml Balance 0 ml medications Current Medications Medications Dose Ordered Sig/Yesenia Route Start Time Stop Time Status Last Admin Dose Admin Acetaminophen 325 mg Q4HP PRN PO 11/28/24 21:45 Ondansetron HCl 4 mg Q4HP PRN IV 11/28/24 21:45 Docusate Sodium 100 mg BIDPRN PRN PO 11/28/24 21:45 Nitroglycerin 0.4 mg Q5MINP PRN SL 11/28/24 21:45 11/29/24 09:45 Morphine Sulfate 2 mg Q30M PRN IV 11/28/24 21:45 Hydromorphone HCl 0.25 mg Q6HPRN PRN IV 11/28/24 21:45 11/29/24 12:33 laboratory and microbiology Laboratory Tests 11/29/24 06:25 Test 11/29/24 06:25 Range/Units Serum Glucose 103 74-106 mg/dL Problem List 1. Unstable angina Monitor, Monitor on tele, DVT prophylaxis 2. CAD Monitor,cardiology consult, plan for heart cath, DVT prophylaxis 3. Paroxysmal atrial fibrillation Monitor,cardiology consult, DVT prophylaxis 4. anxiety and depression Monitor, restart home meds 5. GERD Monitor, PPI Assessment/Plan Subjective Patient is awake and alert Objective Patient was admitted for unstable angina. Patient was previously discharged from [facility] and [facility]. Troponin levels are negative. Patient was seen by cardiology, he is planning for heart catheter today. Patient also has chronic abdominal pain. Patient has had multiple colonoscopies and upper endoscopies with no acute findings Plan Monitor EKG. Plan for heart cath today. Continue home medications. Plan discussed with: Patient, Other MCKENNA ROTH NP Nov 29, 2024 12:35
[2024-11-29] MEDS: IODIXANOL 320MG/ML 100ML BTL IV ONE (15:09)
[2024-11-29] MEDS: ANGIOMAX 250 MG VIAL IV ONE (15:35)
[2024-11-29] MEDS: VERAPAMIL 2.5MG/ML INJ 2ML VIAL IV ONE (15:35)
[2024-11-29] MEDS: HEPARIN SODIUM (PORCINE) 5000 UNITS/ML 1ML VIAL ONE (15:35)
[2024-11-29] MEDS: SODIUM CHL 0.9% 0 ML ONE (15:35)
[2024-11-29] MEDS: LIDOCAINE 2%HCL (LOCAL ANESTH.) INJ 20ML MDV ONE (15:35)
[2024-11-29] MEDS: fentaNYL CITRATE 100 MCG/2 ML VL ONE (15:36)
[2024-11-29] MEDS: MIDAZOLAM HCL 2MG/2ML 2ml VIAL (1mg/ml) ONE (15:36)
--- NOTE | 2024-11-29 16:12 | DVHOP2 ---
Operative Report Procedures performed: Left heart catheterization and bilateral coronary angiogram Moderate sedation Diagnosis: No angiographic evidence for epicardial coronary artery disease (normal coronaries) LVEF of 65% with normal EDP Cardiac suggestion for management: Optimized medical therapy Lifestyle and risk factor modifications Findings: LVEF: 65% LVEDP: 9 mm Hg There was no transaortic valve pressure gradient Left main: Left main was coming off the left sinus of Valsalva. There was no angiographic evidence of disease in left main. LAD: LAD was coming off the left main. It provided usual numbers of diagonals and septals. LAD throughout its course and branches did not reveal any angiographic evidence of disease. LCX: LCX was coming off the left main. It was relatively a small vessel. It provided usual numbers of obtuse marginals. LCX throughout its course and branches was free of disease. RCA: RCA was coming off the right sinus of Valsalva. It was large vessel. It was a dominant vessel. It provided RPDA/RPLS. RCA throughout its course and branches was free of disease. Presentation: Patient is a 49-year-old gentleman who has repeatedly presented to different emergency room/hospitalist for repeated chest pains. Past medical history includes hypertension, hyperlipidemia, SVT, asthma, anxiety, learning disability, osteoarthritis, BPH, paroxysmal AFib (on Eliquis as outpatient), GERD and history of repeated abdominal pain/distention. His nuclear stress test of February 2023 was negative. Echocardiogram of September 29, 2024 (performed in [facility]) revealed ejection fraction of 65% with no wall motion abnormalities. Patient with repeated chest discomforts and possible unstable angina was sent for cardiac catheterization. Procedure: After obtaining informed consent, the patient was brought to the lab engineer. He was prepped and draped in sterile fashion. Right radial artery was used for access site. 1 mg of Versed and 50 mcg of fentanyl were used for moderate sedation. Under ultrasound guidance and using Seldinger technique, the right radial artery was accessed and a 6 Green[place]ic slender sheath was inserted into it. 2.5 mg of verapamil and 100 mcg of nitroglycerin were given as a cocktail into right radial sheath. 4500 units of heparin was given peripherally. A 5 Greenlandic tiger 4 diagnostic catheter was used to perform left heart catheterization (obtaining pressures and performing left ventriculography) and bilateral coronary angiography. There was no indication for any transcatheter revascularization. Total bleeding was less than 5 mL. Patient tolerated the procedure with no complication. There was no dissection/hematoma/perforation. Right radial artery access site was managed by deploying a TR band. Fluoroscopy time: 5.3 minutes contrast: 40 mL of APOORVA Jones MD Nov 29, 2024 16:12
--- NOTE | 2024-11-29 19:11 | ECG ---
[facility] Test Date: 2024-11-28 Test Time: 22:21:22 Pat Name: LUIS MIGUEL JOSHI Department: Room: [facility]5T B Gender: M Studio Manager: RAMIREZ : 1975 Requested By: GHASSAN MORGAN Order Number: [id number] Reading MD: James Moses Measurements Intervals [place] Rate: 68 P: 49 MN: 162 QRS: 43 QRSD: 88 T: 28 QT: 406 QTc: 432 Interpretive Statements Sinus rhythm Electronically Signed On 11-30-2024 13:11:40 PDT by James Moses Please click the below link to view image of tracing.
[2024-11-29] MEDS: APIXABAN 5 MG TAB PO SCH (21:11)
[2024-11-30 01:00] VITALS: BP 139/87; PULSE 75; RESP 18; TEMP 98; O2SAT 95
[2024-11-30] MEDS: ONDANSETRON HCL 4 MG/2 ML VIAL IV PRN (01:47)
[2024-11-30 05:00] VITALS: BP 140/85; PULSE 71; RESP 18; TEMP 97.7; O2SAT 99
[2024-11-30 08:00] VITALS: PULSE 65; RESP 20; O2SAT 95
--- NOTE | 2024-11-30 08:01 | DVHPN2 ---
Progress Note - Dictate Date Seen: Nov 30, 2024 Medical Necessity Reason Pt with a Central, PICC or Fol: No vital signs Vital Sign Date Time Temp Pulse Resp B/P (MAP) Pulse Ox O2 Delivery O2 Flow Rate FiO2 11/30/24 05:00 97.7 71 18 140/85 (103) 99 97.7 11/29/24 20:00 Nasal Cannula* 2 28 Total Intake and Output 11/29/24 11/29/24 11/30/24 15:00 23:00 07:00 Intake Total 400 ml Balance 400 ml medications Current Medications Medications Dose Ordered Sig/Yesenia Route Start Time Stop Time Status Last Admin Dose Admin Acetaminophen 325 mg Q4HP PRN PO 11/28/24 21:45 Ondansetron HCl 4 mg Q4HP PRN IV 11/28/24 21:45 11/30/24 01:47 4 MG Docusate Sodium 100 mg BIDPRN PRN PO 11/28/24 21:45 Nitroglycerin 0.4 mg Q5MINP PRN SL 11/28/24 21:45 11/29/24 09:45 0.4 MG Morphine Sulfate 2 mg Q30M PRN IV 11/28/24 21:45 Hydromorphone HCl 0.25 mg Q6HPRN PRN IV 11/28/24 21:45 11/30/24 01:49 0.25 MG Apixaban 5 mg BID PO 11/29/24 22:00 11/29/24 21:11 5 MG laboratory and microbiology Laboratory Tests 11/29/24 06:25 Test 11/29/24 06:25 Range/Units Serum Glucose 103 74-106 mg/dL Assessment/Plan Patient is 49 year old male who presented to hospital for chest pain. Chest pain has been happening frequently. He has had repeated ED visits and hospitalizations for chest pain. He is known to our practice from outside and before. He is actually waiting for arrangement for Elective Cardiac cath for further evaluation. Does have history of Paroxysmal Atrial fibrillation, for which he takes Eliquis. Last dose of Eliquis was yesterday morning. Denies recent palpitation. Not in acute distress. No carotid bruit. No JVD. Mucosa is pink and wet. Lungs: Clear to auscultation. Cardiac: Regular, no thrill/gallop, Abdomen is soft, distended. There is no gross mass/hepatomegaly. Abdomen is distended. T here is no rebound tenderness. Extremities reveal 1+ edema bilaterally. Dorsalis pedis is 2+ bilateral. Past medical history includes learning disability, hypertension, paroxysmal AFib (on Eliquis as outpatient), asthma, osteoarthritis, anxiety/depression, BPH, hyperlipidemia (on Repatha as outpatient), migraines, history of vitamin-D deficiency and magnesium deficiency, CKD, GERD, short episodes of SVT and mild mitral valve prolapse. Does have history of repeated abdominal pain / distension: for which follows with GI He is allergic to statins and is on Repatha as outpatient. Nuclear stress test of February 2023 did not reveal ischemia and reported ejection fraction of 77%. Echocardiogram of December 24, 2022 (performed in the office) revealed ejection fraction of 65-70%, mild MR/TR/PI and mild mitral valve prolapse Echocardiogram of October 13, 2023 had revealed ejection fraction of 64%, trace MR/TR/PI Echocardiogram of March 25, 2024 revealed ejection fraction of 65-70 percent, there was no wall motion abnormality. There was trace MR/TR/PI. Echocardiogram of 2024 (performed in [facility]) revealed: EF of 65%, no wall motion abnormalities and trace TR Creatinine: 1.17 - 1.16 Potassium: 4.5 - 4.0 BNP: 29.09 Troponin (high sensitive): - 3 - 3 Chest xry revealed: IMPRESSION: No acute cardiopulmonary disease. EKG revealed: NSR, no specific ST T changes Telemetry has revealed sinus rhythm. s/p LHC: No angiographic evidence for epicardial coronary artery disease (normal coronaries). LVEF of 65% with normal EDP. Cardiac suggestion for management: Optimized medical therapy, Lifestyle and risk factor modifications Patient is a 49-year-old gentleman who presented with atypical chest pains. Serial high sensitive troponin has been negative. EKG has been nonrevealing. Has had repeated presentation to different ED and Hospitals for repeated chest pains. There has been a plan for Elective Cardiac Cath for patient. Eventhough Chest pain, rule out Unstable Angina Paroxysmal AFib Hypertension Depression BPH SVT Cardiac suggestion for management: Management in tele Follow-up electrolytes and kidney function tests and correct abnormalities. Keep potassium above 4 and magnesium above 2 Restarted on Eliquis Optimized medical therapy, Lifestyle and risk factor modifications Cardiac kovacs, can be followed as outpatient Further evaluation and management depends on the above and clinical course A total of 75 minutes was spent reviewing the patient record, examining the patient, making a diagnostic and therapeutic plan, discussing this plan with medical personnel, following up on diagnostic studies and following the patient for clinical stability excluding any and all procedures. At least 50% of this time was spent in direct, [id number] contact. Thank you for allowing me to participate in this patient's care. Further recommendations will depend on patient's clinical course. Please do not hesitate to contact me if you have any questions or concerns. This medical document was created using electronic medical record system with [employer] computerized dictation system. Although this document has been carefully reviewed, there may still be some phonetic and typographical errors. These areas are purely typographical due to the imperfection of the software programs, and do not reflect any compromise in the patient's medical care. Plan discussed with: Patient, Other (nurse) APOORVA JON MD Nov 30, 2024 08:01
[2024-11-30 08:21] VITALS: BP 141/86; PULSE 67; RESP 20; TEMP 97.8; O2SAT 95
[2024-11-30] MEDS: DOCUSATE SOD 100 MG CAP PO PRN (11:51)
--- NOTE | 2024-11-30 12:03 | DVHDS2 ---
Discharge Summary Date of Admission Nov 28, 2024 at 21:42 Date of Discharge: Nov 30, 2024 Labs/Diagnostic Data: Laboratory Results Test 11/29/24 11:30 11/29/24 06:25 11/28/24 23:38 11/28/24 18:45 Prothrombin Time 10.6 sec (9.3-11.8) Prothrombin Time INR 1.00 (0.9-1.15) Activated Partial Thromboplast Time 24.2 SEC (24.5-34.5) White Blood Count 4.2 10^3/uL (4.4-10.8) Red Blood Count 4.26 10^6/uL (4.5-5.90) Hemoglobin 14.4 g/dL (13.5-17.5) Hematocrit 41.0 % (41.0-53.0) Mean Corpuscular Volume 96.1 fL (80.0-100.0) Mean Corpuscular Hemoglobin 33.8 pg (28.0-32.0) Mean Corpuscular Hemoglobin Concent 35.2 g/dL (32.0-36.0) Red Cell Distribution Width 14.0 % (11.8-14.3) Platelet Count 193 10^3/uL (140-450) Mean Platelet Volume 7.7 fL (6.9-10.8) Neutrophils (%) (Auto) 58.6 % (37.0-80.0) Lymphocytes (%) (Auto) 28.9 % (10.0-50.0) Monocytes (%) (Auto) 8.9 % (0.0-12.0) Eosinophils (%) (Auto) 3.2 % (0.0-7.0) Basophils (%) (Auto) 0.4 % (0.0-2.0) Neutrophils # (Auto) 2.5 10 ^3/uL (1.6-8.6) Lymphocytes # (Auto) 1.2 10 ^3/uL (0.4-5.4) Monocytes # (Auto) 0.4 10 ^3/uL (0-1.3) Eosinophils # (Auto) 0.1 10 ^3/uL (0-0.8) Basophils # (Auto) 0 10 ^3/uL (0-0.2) Nucleated Red Blood Cells 0.1 % Sodium Level 143 mmol/L (136-145) Potassium Level 4.0 mmol/L (3.5-5.1) Chloride Level 109 mmol/L (98-107) Carbon Dioxide Level 24 mmol/L (20-31) Anion Gap 10 (5-15) Blood Urea Nitrogen 15 mg/dL (9-23) Creatinine 1.16 mg/dL (0.700-1.30) Glomerular Filtration Rate Calc 77 mL/min (>90) BUN/Creatinine Ratio 12.9 (10.0-20.0) Serum Glucose 103 mg/dL (74-106) Calcium Level 8.9 mg/dL (8.7-10.4) Total Bilirubin 0.6 mg/dL (0.2-1.0) Aspartate Amino Transferase (AST) 31 U/L (13-40) Alanine Aminotransferase (ALT) 46 U/L (7-40) Alkaline Phosphatase 71 U/L (46-116) Total Protein 6.2 g/dL (5.7-8.2) Albumin 4.1 g/dL (3.2-4.8) Urine Color Light-yellow (Yellow) Urine Clarity Clear (Clear) Urine pH 5.0 (5.0-9.0) Urine Specific [place] 1.023 (1.001-1.035) Urine Protein Negative (Negative) Urine Ketones Negative (Negative) Urine Blood Negative /uL (Negative) Urine Nitrite Negative (Negative) Urine Bilirubin Negative (Negative) Urine Urobilinogen Normal mg/dL (Negative) Urine Leukocyte Esterase Negative /uL (Negative) Urine RBC <1 /hpf (0 - 3) Urine Microscopic WBC < 1 /HPF (0-3) Urine Squamous Epithelial Cells None seen /hpf (<5) Urine Bacteria None seen /hpf (None Seen) Urine Glucose Normal mg/dL (Normal) Troponin I High Sensitivity 3 ng/L (</=54) Test 11/28/24 17:57 B-Type Natriuretic Peptide 29.09 pg/mL (0-100) Other Laboratory Tests 11/29/24 06:25 Brief Hx & Hospital Course: 49-year-old male who comes in with chief complaint of chest pain today. The patient states that he was admitted last week at [facility]. The patient then left and went to [facility] where he was treated. Following that, the patient was then admitted to [facility] for chest pain. The patient is now scheduled for an angiogram towards the middle of next month. He comes in now because he was having chest pain all day. He states that it is substernal and nonradiating. The chest pain is associated with some shortness for breath but no nausea or vomiting. He did take nitroglycerin which helped to relieve the pain. He did not take any aspirin today. The patient states that the pain started out as an 11/12 today. He was able to ambulate into the emergency department's today. Patient was admitted 11/28/2024 for unstable angina. Patient was seen by cardiology. Patient is status post heart cath. Patient's coronary arteries were found to be clear. Most likely chest pain is related to CAD. Patient also has severe anxiety. Patient had complaints of abdominal pain. Patient has had multiple colonoscopies and upper endoscopies in the past with no acute findings. Patient was cleared by cardiology. He will continue all of his home medications and follow-up with his PCP in 1 week. The patient received proper medical treatment and medications. Vital signs, Imaging and Laboratory Work was monitored daily. All consults recommendations were followed as provided. There were no complaints or new complaints upon discharge, all questions and concerns were answered. Patient was advised to return to the ER or call 911 if any headaches, dizziness, shortness of breath, chest pain, bleeding, fevers, or worsening of medical condition. Patient/Family was counseled about treatment plan, medications, possible side effects, patient verbalized understanding. All questions were answered to the best of my ability. The patient symptoms improved and they are okay to be DC. Condition at Discharge: Stable Final Diagnosis/Problems List Unstable angina s/p hearth cath- normal coronaries Paroxysmal AFib Hypertension Depression BPH SVT Discharge Disposition: Home Discharge Instruct/Medications Diet: Cardiac 2g Na,low cholest Activity: No Restrictions, As Tolerated Scheduled Amiodarone HCl (Amiodarone HCl), 200 MG PO BID Amlodipine Besylate (Amlodipine Besylate), 1 TAB PO DAILY, (Reported) Apixaban Base (Eliquis), 5 MG PO BID, (Reported) Beclomethasone Dipropionate (Qvar Redihaler), 2 PUFF IN BID, (Reported) Escitalopram Oxalate (Lexapro), 5 MG PO DAILY, (Reported) Gabapentin (Gabapentin), 1 CAP PO TID Pantoprazole Sodium Sesquihydr (Pantoprazole Sodium), 1 TAB PO BID Scheduled PRN Albuterol Sulfate (Albuterol Sulfate Hfa), 1 PUFF INH Q4HPRN PRN for SHORTNESS OF BREATH, (Reported) Calcium Carbonate (Tums), 2-3 TAB PO QHSP PRN Dicyclomine Hcl (Dicyclomine Hcl), 10 MG PO BID PRN for ABD MUSCLE SPASM, (Reported) Nitroglycerin (Nitrostat), 0.4 MG SL Q12HP PRN Miscellaneous Medications Trazodone Hcl (Trazodone Hcl), 50 MG PO, (Reported) Discontinued Medications Ciprofloxacin Hcl (Cipro), 1 TAB PO BID Dicyclomine Hcl (Bentyl Capsule), 2 CAP PO Q6HP PRN Metronidazole (Flagyl), 500 MG PO TID Discharge Statement: "Patient was advised to return to the ER or call 911 if any headaches, dizziness, shortness of breath, chest pain, abdominal pain, bleeding, fevers, or worsening of medical condition. Patient was counseled about treatment plan, medications, possible side effects, patientverbalized understanding. All questions were answered to the best of my ability. This discharge took greater then 30 minutes in planning, reviewing documentation, counseling the patient, and discussing with other team members." ASSESSMENT ASSESSMENT Assessment Unstable angina s/p hearth cath- normal coronaries MCKENNA ROTH NP Nov 30, 2024 12:03
[2024-11-30 12:44] VITALS: BP 125/77; PULSE 67; RESP 20; TEMP 36.6; O2SAT 95
== END 2024-11-30 13:25 | disposition home or self-care (01) | DRG 287 ==
LOC: ER 17:30 → OVERFLOW 21:42 → TELE-WESTW 11-29 03:52
PROVIDERS: ADMIT Internal Medicine; ATTEND Internal Medicine
PROC: 4A023N7 Measurement of Cardiac Sampling and Pressure, Left Heart, Percutaneous Approach (ICD-10-PCS; principal; 2024-11-29)
PROC: B211YZZ Fluoroscopy of Multiple Coronary Arteries using Other Contrast (ICD-10-PCS; 2024-11-29)
PROC: B215YZZ Fluoroscopy of Left Heart using Other Contrast (ICD-10-PCS; 2024-11-29)
DX: I25.110 Atherosclerotic heart disease of native coronary artery with unstable angina pectoris (principal); I47.10 Supraventricular tachycardia, unspecified; I24.9 Acute ischemic heart disease, unspecified; I48.0 Paroxysmal atrial fibrillation; I34.1 Nonrheumatic mitral (valve) prolapse; J45.909 Unspecified asthma, uncomplicated; K21.9 Gastro-esophageal reflux disease without esophagitis; F41.9 Anxiety disorder, unspecified; E78.5 Hyperlipidemia, unspecified; F32.A Depression, unspecified; N40.0 Benign prostatic hyperplasia without lower urinary tract symptoms; N18.9 Chronic kidney disease, unspecified; I12.9 Hypertensive chronic kidney disease with stage 1 through stage 4 chronic kidney disease, or unspecified chronic kidney disease; Z88.6 Allergy status to analgesic agent; Z88.5 Allergy status to narcotic agent; Z88.0 Allergy status to penicillin; Z88.8 Allergy status to other drugs, medicaments and biological substances; Z82.3 Family history of stroke; Z82.49 Family history of ischemic heart disease and other diseases of the circulatory system; Z83.3 Family history of diabetes mellitus; Z79.01 Long term (current) use of anticoagulants; Z79.899 Other long term (current) drug therapy
CPT/HCPCS: 36415; 71046; 80048; 80053; 81001; 83880; 84484; 85025; 85610; 85730; 86850; 86900; 86901; 87081; 93005; 93458; 99152; 99291; G0378; J2250; J2405; Q9967

== ENCOUNTER 2024-12-19 15:59 | Emergency (ER) | payer OTHER ==
[~2024-12-19] VITALS: Ht 167.6 cm; Wt 77.3 kg
[~2024-12-19 15:59] MED LIST changes: -CIPR-173 PO; -DICY10CA PO; +ESCI5TAB PO; -METR-344 PO; +TRAZ-228 PO
[2024-12-19 16:11] VITALS: BP 158/89; PULSE 59; RESP 12; TEMP 97.5; O2SAT 98
--- NOTE | 2024-12-19 16:23 | ED.PDOC ---
History of Present Illness HPI Comments 49-year-old male brought by ambulance because abdominal pain. Abdominal pain not associated with nausea vomiting diarrhea. He has been having abdominal pain for many months. History of hypertension. Denies any other symptoms. Time Seen by MD: 16:07 Primary Care Provider: AYLEEN Reviewed Notes: Nurses Notes, Medications, Allergies Allergies: Coded Allergies: Acetaminophen (Verified Allergy, Unknown, 03/02/23) Amoxicillin (Verified Allergy, Unknown, 03/02/23) Codeine (Verified Allergy, Unknown, 03/02/23) Hydrocodone (Verified Allergy, Unknown, 03/24/24) Ibuprofen (Verified Allergy, Unknown, 03/02/23) Penicillins (Verified Allergy, Unknown, 03/02/23) Statins (Verified Allergy, Unknown, 03/02/23) Tramadol (Verified Allergy, Unknown, 03/02/23) Uncoded Allergies: WALNUTS (Allergy, Unknown, 03/02/23) Home Meds Active Scripts Calcium Carbonate (Tums) 500 Mg Chw, 2-3 TAB PO QHSP PRN, #90 TAB.CHEW prn abdominal pain Prov:YOSHI BONNER MD 09/05/24 Nitroglycerin (Nitrostat) 0.4 Mg Sub, 0.4 MG SL Q12HP PRN, #10 TAB Prov:APOORVA GILLESPIE PAC 08/25/24 Gabapentin (Gabapentin) 300 Mg Cap, 1 CAP PO TID, #90 CAP 5 Refills Prov:MCKENNA ROTH SCARFER OPERATOR 05/24/24 Amiodarone HCl (Amiodarone HCl) 200 Mg Tab, 200 MG PO BID for 30 Days, #60 TAB Prov:MCKENNA ROTH SCARFER OPERATOR 05/24/24 Pantoprazole Sodium Sesquihydr (Pantoprazole Sodium) 40 Mg Tab, 1 TAB PO BID for 30 Days, #60 TAB Prov:MCKENNA ROTH SCARFER OPERATOR 11/15/23 Reported Medications Trazodone Hcl (Trazodone Hcl) 100 Mg Tab, 50 MG PO, TAB 11/29/24 Escitalopram Oxalate (Lexapro) 5 Mg Tab, 5 MG PO DAILY for depresion, TAB 11/29/24 Amlodipine Besylate (Amlodipine Besylate) 10 Mg Tab, 1 TAB PO DAILY 11/13/24 Beclomethasone Dipropionate (Qvar Redihaler) 80 Mcg/Act Aer, 2 PUFF IN BID, AER 03/25/24 Albuterol Sulfate (Albuterol Sulfate Hfa) 108 Mcg/Act Aer, 1 PUFF INH Q4HPRN PRN for SHORTNESS OF BREATH 03/25/24 Apixaban Base (ELIQUIS) 5 Mg Tab, 5 MG PO BID, TAB 10/12/23 Dicyclomine Hcl (Dicyclomine Hcl) 20 Mg Tab, 10 MG PO BID PRN for ABD MUSCLE SPASM, MG 10/12/23 Information Source: Patient, Emergency Med Personnel Mode of Arrival: EMS Severity: Moderate Timing: Months Duration: Since onset Past Medical History PAST MEDICAL HISTORY: AFIB, Anxiety, Arthritis, Asthma, GERD, High Lipids, HTN Surgical History: Denies all surgeries Family History Family History: Reviewed,noncontributory to illness, Family hx of heart tim, Family hx of stroke Social History Smoker: Non-Smoker Alcohol: Denies ETOH Use Drugs: Denies Drug Use Lives In: Home Constitutional: denies: chills, diaphoresis, fatigue, fever, malaise, sweats, weakness, others EENTM: denies: blurred vision, double vision, ear bleeding, ear discharge, ear drainage, ear pain, ear ringing, eye pain, eye redness, hearing loss, mouth pain, mouth swelling, nasal discharge, nose bleeding, nose congestion, nose pain, photophobia, tearing, throat pain, throat swelling, voice changes, others Respiratory: denies: cough, hemoptysis, orthopnea, SOB at rest, shortness of breath, SOB with excertion, stridor, wheezing, others Cardiovascular: denies: chest pain, dizzy spells, diaphoresis, Dyspnea on exertion, edema, irregular heart beat, left arm pain, lightheadedness, palpitations, PND, syncope, others Gastrointestinal: reports: abdominal pain; denies: abdomen distended, blood streaked bowels, constipated, diarrhea, dysphagia, difficulty swallowing, hematemesis, melena, nausea, poor appetite, poor fluid intake, rectal bleeding, rectal pain, vomiting, others Genitourinary: denies: burning, dysuria, flank pain, frequency, hematuria, incontinence, penile discharge, penile sore, pain, testicle pain, testicle swelling, urgency, others Neurological: denies: dizziness, fainting, headache, left sided numbness, left sided weakness, numbness, paresthesia, pre-existing deficit, right sided numbness, right sided weakness, seizure, speech problems, tingling, tremors, weakness, others Musculoskeletal: denies: back pain, gout, joint pain, joint swelling, muscle pain, muscle stiffness, neck pain, others Integumetry: denies: bruises, change in color, change in hair/nails, dryness, laceration, lesions, lumps, rash, wounds, others Allergic/Immunocompromised: denies: Difficulty Healing, Frequent Infections, Hives, Itching, others Hematologic/Lymphatic: denies: anemia, blood clots, easy bleeding, easy b ruising, swollen glands, others Endocrine: denies: excessive hunger, excessive sweating, excessive thirst, excessive urination, flushing, intolerance to cold, intolerance to heat, unexplained weight gain, unexplained weight loss, others Psychiatric: denies: anxiety, bipolar disorder, depression, hopeless, panic disorder, schizophrenia, sleepless, suicidal, others Physical Exam General Appearance: Moderate Distress HEENT: Normal ENT Inspection, Pharynx Normal, TMs Normal Neck: Full Range of Motion, Non-Tender, Normal, Normal Inspection Respiratory: Chest Non-Tender, Lungs Clear, No Accessory Muscle Use, No Respiratory Distress, Normal Breath Sounds Cardiovascular: No Edema, No JVD, No Murmur, No Gallop, Normal Peripheral Pulses, Regular Rate/Rhythm Breast Exam: Deferred Gastrointestinal: No Organomegaly, Non Tender, No Pulsatile Mass, Normal Bowel Sounds, Soft Genitalia: Deferred Pelvic: Deferred Rectal: Deferred Extremities: No calf tenderness, Normal capillary refill, Normal inspection, Normal range of motion, Non-tender, No pedal edema Musculoskeletal : Apperance: Normal Neurologic: Alert, electronics processing supervisor II-XII nml as 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 Was a procedure done?: No Differential Dx Considerations may include: Anemia Electrolyte imbalance Time of 1ST Reevaluation: 16:23 Reevaluation 1ST: Unchanged Patient Education/Counseling: Diagnosis, Treatment, Prognosis Family Education/Counseling: No Family Present SEPSIS Sepsis Screen Physician Orders Complete Blood Count (12/19/24 16:08) Urinalysis (12/19/24 16:08) Basic Metabolic Panel (12/19/24 16:08) Departure 1 Departure Time of Disposition: 16:23 Impression: Primary Impression: Gastritis Qualified Codes: K29.00 - Acute gastritis without bleeding Disposition: 01 HOME / SELF CARE / HOMELESS Condition: Good Discharged With: Self Critical Care Note Critical Care Time?: No Stability Stability form required: No Heart Score Heart Score: Heart Score Response (Comments) Value History N/A 0 EKG N/A 0 Age N/A 0 Risk Factors N/A 0 Troponin N/A 0 Total 0 DARRELL BALBUENA MD Dec 19, 2024 16:23
[2024-12-19 17:08] LABS: Hematocrit 45.4 % (41.0-53.0); Hemoglobin 16.0 g/dL (13.5-17.5); Mean Corpuscular Hemoglobin 33.6 pg (28.0-32.0); Mean Corpuscular Volume 95.4 fL (80.0-100.0); Nucleated Red Blood Cells % 0.3 %
[2024-12-19 17:20] LABS: Potassium 4.5 mmol/L (3.5-5.1); Sodium 143 mmol/L (136-145)
[2024-12-19 17:21] LABS: Anion Gap 9 (5-15); Calcium 9.8 mg/dL (8.7-10.4); Carbon Dioxide 26 mmol/L (20-31)
[2024-12-19 17:26] LABS: BUN/Creatinine Ratio 11.5 (10.0-20.0); Blood Urea Nitrogen 14 mg/dL (9-23)
[2024-12-19 17:33] LABS: Chloride 108 mmol/L (98-107); Glucose 120 mg/dL (74-106)
== END 2024-12-19 18:16 | disposition home or self-care (01) ==
LOC: EDBD 15:59 → ER 15:59
DX: K29.00 Acute gastritis without bleeding (principal); Z88.5 Allergy status to narcotic agent; Z88.0 Allergy status to penicillin; Z79.899 Other long term (current) drug therapy
CPT/HCPCS: 36415; 80048; 85025

== ENCOUNTER 2024-12-29 14:59 | Inpatient (IN) | payer OTHER ==
[~2024-12-29] VITALS: Ht 175.3 cm; Wt 87.0 kg
--- NOTE | 2024-12-29 15:09 | ECG ---
[facility] Test Date: 2024-12-29 Test Time: 15:06:49 Pat Name: LUIS MIGUEL JOSHI Department: Room: Gender: M Environmental Quality Analyst: MEETA : 1975 Requested By: APOORVA GILLESPIE Order Number: [id number] Reading MD: Measurements Intervals [place] Rate: 54 P: 41 MI: 171 QRS: -6 QRSD: 89 T: 37 QT: 447 QTc: 424 Interpretive Statements Sinus rhythm Baseline wander in lead(s) V4 Please click the below link to view image of tracing.
--- NOTE | 2024-12-29 15:21 | ED.PDOC ---
HPI Comments This is a 49 year-old male, with a Hx of Afib, who presents to the ED with a chief complaint of chest pain as of 2-3 days ago. Patient reports chest pain as intermittent, nonradiating, with no associated relieving factors. Patient reports an observed HR of 40 this morning. Patient additionally states he is on oxygen at home per cardiology recommendation. Patient has no further complaints at this time and otherwise denies dizziness, headache, palpitations, weakness, or N/V/D. Patient was bradycardic at arrival. Chief Complaint: Chest Pain Time Seen by MD: 15:08 Primary Care Provider: AYLEEN Reviewed Notes: Nurses Notes, Medications, Allergies Allergies: Coded Allergies: Acetaminophen (Verified Allergy, Unknown, 03/02/23) Amoxicillin (Verified Allergy, Unknown, 03/02/23) Codeine (Verified Allergy, Unknown, 03/02/23) Hydrocodone (Verified Allergy, Unknown, 03/24/24) Ibuprofen (Verified Allergy, Unknown, 03/02/23) Penicillins (Verified Allergy, Unknown, 03/02/23) Statins (Verified Allergy, Unknown, 03/02/23) Tramadol (Verified Allergy, Unknown, 03/02/23) Uncoded Allergies: WALNUTS (Allergy, Unknown, 03/02/23) Home Meds Active Scripts Calcium Carbonate (Tums) 500 Mg Chw, 2-3 TAB PO QHSP PRN, #90 TAB.CHEW prn abdominal pain Prov:YOSHI BONNER MD 09/05/24 Nitroglycerin (Nitrostat) 0.4 Mg Sub, 0.4 MG SL Q12HP PRN, #10 TAB Prov:APOORVA GILLESPIE PAC 08/25/24 Gabapentin (Gabapentin) 300 Mg Cap, 1 CAP PO TID, #90 CAP 5 Refills Prov:MCKENNA ROTH TEXTILE [employer]OTHING AND [employer]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[employer]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 05/24/24 Amiodarone HCl (Amiodarone HCl) 200 Mg Tab, 200 MG PO BID for 30 Days, #60 TAB Prov:MCKENNA ROTH NP 05/24/24 Pantoprazole Sodium Sesquihydr (Pantoprazole Sodium) 40 Mg Tab, 1 TAB PO BID for 30 Days, #60 TAB Prov:MCKENNA ROTH NP 11/15/23 Reported Medications Trazodone Hcl (Trazodone Hcl) 100 Mg Tab, 50 MG PO, TAB 11/29/24 Escitalopram Oxalate (Lexapro) 5 Mg Tab, 5 MG PO DAILY for depresion, TAB 11/29/24 Amlodipine Besylate (Amlodipine Besylate) 10 Mg Tab, 1 TAB PO DAILY 11/13/24 Beclomethasone Dipropionate (Qvar Redihaler) 80 Mcg/Act Aer, 2 PUFF IN BID, AER 03/25/24 Albuterol Sulfate (Albuterol Sulfate Hfa) 108 Mcg/Act Aer, 1 PUFF INH Q4HPRN PRN for SHORTNESS OF BREATH 03/25/24 Apixaban Base (ELIQUIS) 5 Mg Tab, 5 MG PO BID, TAB 10/12/23 Dicyclomine Hcl (Dicyclomine Hcl) 20 Mg Tab, 10 MG PO BID PRN for ABD MUSCLE SPASM, MG 10/12/23 Information Source: Patient, Friend Mode of Arrival: Ambulatory Severity: Moderate Timing: Hours Duration: Since onset Prehospital treatment: None Onset: At Rest, With Light Exertion, With Heavy Exertion Cardiac Risk Factors: Other (AFib) PE Risk Factors: Other (AFib) History of: Similar pain in past, Other (AFib) Associated Signs and Symptoms: Other (chest pain) Past Medical History PAST MEDICAL HISTORY: AFIB, Anxiety, Arthritis, Asthma, GERD, High Lipids, HTN Surgical History: Denies all surgeries Family History Family History: Reviewed,noncontributory to illness, Family hx of heart tim, Family hx of stroke Social History Smoker: Non-Smoker Alcohol: Denies ETOH Use Drugs: Denies Drug Use Lives In: Home Constitutional: denies: chills, diaphoresis, fatigue, fever, malaise, sweats, weakness, others EENTM: denies: blurred vision, double vision, ear bleeding, ear discharge, ear drainage, ear pain, ear ringing, eye pain, eye redness, hearing loss, mouth pain, mouth swelling, nasal discharge, nose bleeding, nose congestion, nose pain, photophobia, tearing, throat pain, throat swelling, voice changes, others Respiratory: denies: cough, hemoptysis, orthopnea, SOB at rest, shortness of breath, SOB with excertion, stridor, wheezing, others Cardiovascular: reports: chest pain; denies: dizzy spells, diaphoresis, Dyspnea on exertion, edema, irregular heart beat, left arm pain, lightheadedness, palpitations, PND, syncope, others Gastrointestinal: denies: abdomen distended, abdominal pain, blood streaked bowels, constipated, diarrhea, dysphagia, difficulty swallowing, hematemesis, melena, nausea, poor appetite, poor fluid intake, rectal bleeding, rectal pain, vomiting, others Genitourinary: denies: burning, dysuria, flank pain, frequency, hematuria, incontinence, penile discharge, penile sore, pain, testicle pain, testicle swelling, urgency, others Neurological: denies: dizziness, fainting, headache, left sided numbness, left sided weakness, numbness, paresthesia, pre-existing deficit, right sided numbness, right sided weakness, seizure, speech problems, tingling, tremors, weakness, others Musculoskeletal: denies: back pain, gout, joint pain, joint swelling, muscle pain, muscle stiffness, neck pain, others Integumetry: denies: bruises, change in color, change in hair/nails, dryness, laceration, lesions, lumps, rash, wounds, others Allergic/Immunocompromised: denies: Difficulty Healing, Frequent Infections, Hives, Itching, others Hematologic/Lymphatic: denies: anemia, blood clots, easy bleeding, easy bruising, swollen glands, others Endocrine: denies: excessive hunger, excessive sweating, excessive thirst, excessive urination, flushing, intolerance to cold, intolerance to heat, unexplained weight gain, unexplained weight loss, others Psychiatric: denies: anxiety, bipolar disorder, depression, hopeless, panic disorder, schizophrenia, sleepless, suicidal, others All Other Systems: Reviewed and Negative Physical Exam General Appearance: Mild Distress (Moderate distress due to improve chest pain, but anxiety related to his low heart rate.), Normal HEENT: Normal ENT Inspection, Pharynx Normal, TMs Normal Neck: Full Range of Motion, Non-Tender, Normal, Normal Inspection Respiratory: Chest Non-Tender, Lungs Clear, No Accessory Muscle Use, No Respiratory Distress, Normal Breath Sounds Cardiovascular: Bradycardia, No Edema, No JVD, No Murmur, No Gallop, Normal Peripheral Pulses Breast Exam: Deferred Gastrointestinal: No Organomegaly, Non Tender, No Pulsatile Mass, Normal Bowel Sounds, Soft Genitalia: Deferred Pelvic: Deferred Rectal: Deferred Extremities: No calf tenderness, Normal capillary refill, Normal inspection, Normal range of motion, Non-tender, No pedal edema Neurologic: Alert Cerebellar Function: NOT DONE Reflexes: NOT DONE Skin: Dry, Normal Color, Warm Lymphatic: No Adenopathy Was a procedure done? Was a procedure done?: No CP Differential Dx Differential Diagnosis: A-fib, Angina, Anxiety / Panic Attack Differential Diagnosis: CHF, HTN Essential Differential Diagnosis: Angina, Chest Wall Pain, Gastritis X-Ray, Labs, Meds, VS Vital Signs Date Time Temp Pulse Resp B/P (MAP) Pulse Ox O2 Delivery O2 Flow Rate FiO2 12/29/24 20:11 99.2 60 18 136/70 (92) 98 99.2 12/29/24 17:58 57 12/29/24 17:11 98.0 50 18 138/80 (99) 96 98.0 12/29/24 15:58 57 12/29/24 15:06 54 12/29/24 15:05 98.3 49 20 126/75 98 98.3 Lab Test 12/29/24 16:58 12/29/24 15:16 12/29/24 00:00 Range/Units Troponin I High Sensitivity 5 4 </=54 ng/L White Blood Count 4.7 4.4-10.8 10^3/uL Red Blood Count 4.51 4.5-5.90 10^6/uL Hemoglobin 14.8 13.5-17.5 g/dL Hematocrit 43.1 41.0-53.0 % Mean Corpuscular Volume 95.7 80.0-100.0 fL Mean Corpuscular Hemoglobin 32.8 H 28.0-32.0 pg Mean Corpuscular Hemoglobin Concent 34.3 32.0-36.0 g/dL Red Cell Distribution Width 14.0 11.8-14.3 % Platelet Count 204 140-450 10^3/uL Mean Platelet Volume 7.3 6.9-10.8 fL Neutrophils (%) (Auto) 62.3 37.0-80.0 % Lymphocytes (%) (Auto) 23.7 10.0-50.0 % Monocytes (%) (Auto) 10.3 0.0-12.0 % Eosinophils (%) (Auto) 3.1 0.0-7.0 % Basophils (%) (Auto) 0.6 0.0-2.0 % Neutrophils # (Auto) 2.9 1.6-8.6 10 ^3/uL Lymphocytes # (Auto) 1.1 0.4-5.4 10 ^3/uL Monocytes # (Auto) 0.5 0-1.3 10 ^3/uL Eosinophils # (Auto) 0.1 0-0.8 10 ^3/uL Basophils # (Auto) 0 0-0.2 10 ^3/uL Nucleated Red Blood Cells 0.2 % Sodium Level 145 136-145 mmol/L Potassium Level 3.8 3.5-5.1 mmol/L Chloride Level 109 H 98-107 mmol/L Carbon Dioxide Level 25 20-31 mmol/L Anion Gap 11 5-15 Blood Urea Nitrogen 15 9-23 mg/dL Creatinine 1.16 0.700-1.30 mg/dL Glomerular Filtration Rate Calc 77 >90 mL/min BUN/Creatinine Ratio 12.9 10.0-20.0 Serum Glucose 99 74-106 mg/dL Calcium Level 9.0 8.7-10.4 mg/dL Total Bilirubin 0.7 0.2-1.0 mg/dL Aspartate Amino Transferase (AST) 28 13-40 U/L Alanine Aminotransferase (ALT) 44 H 7-40 U/L Alkaline Phosphatase 78 46-116 U/L B-Type Natriuretic Peptide 46.45 0-100 pg/mL Total Protein 6.4 5.7-8.2 g/dL Albumin 4.1 3.2-4.8 g/dL Lipase 56 H 12-53 U/L Urine Color Light-yellow Yellow Urine Clarity Clear Clear Urine pH 5.0 5.0-9.0 Urine Specific [place] 1.017 1.001-1.035 Urine Protein Negative Negative Urine Ketones Negative Negative Urine Blood Negative Negative /uL Urine Nitrite Negative Negative Urine Bilirubin Negative Negative Urine Urobilinogen Normal Negative mg/dL Urine Leukocyte Esterase Negative Negative /uL Urine RBC <1 0 - 3 /hpf Urine Microscopic WBC 1 0-3 /HPF Urine Squamous Epithelial Cells None seen <5 /hpf Urine Uric Acid Crystals Few None Seen /hpf Urine Bacteria None seen None Seen /hpf Urine Glucose Normal Normal mg/dL Urine Opiates Screen Neg NEGATIVE Urine Fentanyl Screen Neg NEGATIVE Urine Barbiturates Screen Neg NEGATIVE Urine Phencyclidine Screen Neg NEGATIVE Urine Amphetamines Screen Neg NEGATIVE Urine Benzodiazepines Screen Neg NEGATIVE Urine Cocaine Screen Neg NEGATIVE Urine Cannabinoids Screen Neg NEGATIVE [facility] [id number] [facility] [id number] Ph: [phone] DIAGNOSTIC IMAGING Diagnostic Imaging Report : [id number] Signed PATIENT: LUIS MIGUEL JOSHI ACCT: [id number] UNIT: [id number] : 1975 LOC: ER ROOM / BED: / AGE / SEX: 49 / M ADM STATUS: REG ER SERVICE [id number] ORDERING PHYSICIAN: APOORVA GILLESPIE PAC PROCEDURE(s): CXRP - CHEST PORTABLE REASON: Shortness of breath ORDER NUMBER(s): [id number], ACCESSION NUMBER(s): [id number] CHEST RADIOGRAPH REASON FOR EXAM: Shortness of breath COMPARISON: XR CHEST 1 VIEW on DOS: 12/20/24, XY CHEST TWO VIEWS ROUTINE on DOS: 11/28/24, XR CHEST 1 VIEW on DOS: 11/20/24, XY CHEST PORTABLE on DOS: 11/13/24, XY CHEST PORTABLE on DOS: 10/26/24 TECHNIQUE: One view of the chest is provided FINDINGS: The cardiomediastinal silhouette is within normal limits for technique. There is no focal airspace disease. There is no significant pleural effusion. No acute bony abnormality is identified. IMPRESSION: No radiographic evidence of acute cardiopulmonary process. X-Ray, Labs, Meds, VS Comment All studies performed the ED were evaluated by me personally. Serum studies and urinalysis was unremarkable for any systemic concerns including unremarkable cardiac markers. EKG was remarkable for sinus rhythm with a rate of 54. Baseline wander in lead V4. ND interval 171 and QT interval 447. . Chest x-ray was unremarkable for any consolidation or intrapulmonary concerns. Patient's continued bradycardia is concerning for a sick sinus syndrome. Additionally, patient has a history of AFib and therefore, patient will be admitted for cardiac consultation tomorrow. Patient's insurance was [facility] and therefore, case was presented to Dr. Read for review of patient presentation, laboratory and EKG results. He agreed to admit the patient under his care. Time of 1ST Reevaluation: 19:59 Reevaluation 1ST: Improved Consultation: PCP, Cardiology Patient Education/Counseling: Diagnosis, Treatment Family Education/Counseling: Diagnosis, Treatment, No Family Present Medical Screening: No EMC Exist At This Time SEPSIS Sepsis Screen Date sepsis recognized/suspect: Dec 29, 2024 Time Sepsis recognized/suspect: 1505 Recent Procedure: No On Antibiotic Therapy: No Respiratory Rate >20: No Heart Rate >90: No Temp<36 C (96.8 F) or >38.3 C: No SBP <90 or MAP <65 mmHG: No New Acute Mental Status Change: No Is the patient on CPAP, BIPAP,: No Physician Orders Chest Portable (12/29/24 15:12) Vital Signs Date Time Temp Pulse Resp B/P (MAP) Pulse Ox O2 Delivery O2 Flow Rate FiO2 12/29/24 20:11 99.2 60 18 136/70 (92) 98 99.2 12/29/24 17:58 57 12/29/24 17:11 98.0 50 18 138/80 (99) 96 98.0 12/29/24 15:58 57 12/29/24 15:06 54 12/29/24 15:05 98.3 49 20 126/75 98 98.3 Laboratory Tests Test 12/29/24 15:16 White Blood Count 4.7 10^3/uL (4.4-10.8) Departure 1 Departure Time of Disposition: 19:59 Impression: Primary Impression: Chest pain Additional Impressions: Bradycardia Acute coronary syndrome Disposition: ADMITTED INPATIENT Condition: Stable Discharged With: Self, Process Control Specialist Critical Care Note Critical Care Time?: No Stability Stability form required: No Heart Score Heart Score: Heart Score Response (Comments) Value History Slightly Suspicious 0 EKG Normal 0 Age 45-64 1 Risk Factors 1 or 2 risk factors 1 Troponin N/A 0 Total 2 I personally scribed for APOORVA GILLESPIE PAC ([employer]) on 12/29/24 at 15:21. Electronically submitted by Hayde Ramos ([employer]). I personally scribed for APOORVA GILLESPIE PAC ([email or web address]) on 12/29/24 at 16:18. Electronically submitted by Hayde Ramos ([employer]). APOORVA GILLESPIE PAC Dec 29, 2024 15:21
[2024-12-29 15:29] LABS: Hematocrit 43.1 % (41.0-53.0); Hemoglobin 14.8 g/dL (13.5-17.5); Mean Corpuscular Hemoglobin 32.8 pg (28.0-32.0); Mean Corpuscular Volume 95.7 fL (80.0-100.0); Nucleated Red Blood Cells % 0.2 %
[2024-12-29 15:44] LABS: Albumin 4.1 g/dL (3.2-4.8); Alkaline Phosphatase 78 U/L (46-116); Anion Gap 11 (5-15); BUN/Creatinine Ratio 12.9 (10.0-20.0); Bilirubin, Total 0.7 mg/dL (0.2-1.0); Blood Urea Nitrogen 15 mg/dL (9-23); Calcium 9.0 mg/dL (8.7-10.4); Carbon Dioxide 25 mmol/L (20-31); Glucose 99 mg/dL (74-106); Potassium 3.8 mmol/L (3.5-5.1); Sodium 145 mmol/L (136-145); Total Protein 6.4 g/dL (5.7-8.2)
--- NOTE | 2024-12-29 15:48 | DVH ---
CHEST RADIOGRAPH REASON FOR EXAM: Shortness of breath COMPARISON: XR CHEST 1 VIEW on DOS: 12/20/24, XY CHEST TWO VIEWS ROUTINE on DOS: 11/28/24, XR CHEST 1 V IEW on DOS: 11/20/24, XY CHEST PORTABLE on DOS: 11/13/24, XY CHEST PORTABLE on DOS: 10/26/24 TECHNIQUE: One view of the chest is provided FINDINGS: The cardiomediastinal silhouette is within normal limits for technique. There is no focal a irspace disease. There is no significant pleural effusion. No acute bony abnormality is identified. IMPRESSION: No radiographic evidence of acute cardiopulmonary process.
[2024-12-29 15:49] LABS: Alanine Aminotransferase 44 U/L (7-40); Chloride 109 mmol/L (98-107); Lipase 56 U/L (12-53)
--- NOTE | 2024-12-29 15:55 | ECG ---
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
--- NOTE | 2024-12-29 17:58 | ECG ---
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
[2024-12-29 19:38] LABS: Urine Protein, UAD Negative (Negative)
[2024-12-29 19:43] LABS: Amphetamine Screen, Urine Neg (NEGATIVE)
[2024-12-29 19:45] LABS: Barbiturate Scree,Urine Neg (NEGATIVE); Benzodiazephine Screen, Urine Neg (NEGATIVE); Cannabinoid Screen, Urine Neg (NEGATIVE); Cocaine Screen, Urine Neg (NEGATIVE); Opiate Scree,Urine Neg (NEGATIVE); Phencyclidine Screen, Urine Neg (NEGATIVE)
[2024-12-30] MEDS ORDERED: HYDROcodone-ACET 5/325MG TAB PO PRN (01:00)
[2024-12-30] MEDS ORDERED: NITROGLYCERIN 0.4 MG SL TAB SL PRN (01:00)
[2024-12-30] MEDS ORDERED: ACETAMINOPHEN 325 MG TAB PO PRN (01:00)
[2024-12-30] MEDS ORDERED: TEMAZEPAM 15 MG CAP PO PRN (01:00)
[2024-12-30 02:01] VITALS: PULSE 60; RESP 18; O2SAT 97
[2024-12-30 04:00] VITALS: BP 157/89; PULSE 62; RESP 17; TEMP 98.4; O2SAT 93
[2024-12-30 06:00] VITALS: BP 142/87; PULSE 73; RESP 17; O2SAT 95
[2024-12-30] MEDS: MORPHINE SULFATE INJ 2 MG/ml SYRG IV PRN (07:36)
[2024-12-30] MEDS: APIXABAN 5 MG TAB PO SCH (09:36)
[2024-12-30] MEDS: AMIODARONE HCL 200 MG TAB PO SCH (09:37)
[2024-12-30] MEDS ORDERED: ENOXAPARIN SOD 40 MG/0.4 ML SYRINGE SC SCH (10:00)
[2024-12-30] MEDS ORDERED: PANTOPRAZOLE 40 MG TAB PO SCH (10:00)
[2024-12-30] MEDS ORDERED: ESCITALOPRAM OXALATE 5 MG PO SCH (10:00)
[2024-12-30] MEDS: Escitalopram Oxalate (Lexapro) 10 MG TABLET PO SCH (10:30)
[2024-12-30] MEDS: LACTULOSE 20Gm/30ML SOLN PO SCH (11:38)
[2024-12-30] MEDS: DRONEDARONE HCL 400 MG TAB PO SCH (11:38)
--- NOTE | 2024-12-30 12:34 | DVHHP2 ---
History of Present Illness History of Present Illness 49-year-old male with a history of AFib, hypertension, depression presents to emergency room for chest pain which she describes as intermittent and nonradiating. Patient reports his heart rate dropped to the 40s in the ER his heart rate is in the 70s. Review of Systems Respiratory: No: Cough, Dry, Shortness of breath, SOB with excertion, Wheezing, Hemoptysis, Pleuritic Pain, Sputum, Wheezing, Other Cardiovascular: Chest Pain Gastrointestinal: No: Nausea, Vomiting, Abdominal Pain, Diarrhea, Constipation, Melena, Hematochezia, Other Genitourinary: No Dysuria, No Frequency, No Incontinence, No Hematuria, No Retention, No Other Allergies: Coded Allergies: Acetaminophen (Verified Allergy, Unknown, 03/02/23) Amoxicillin (Verified Allergy, Unknown, 03/02/23) Codeine (Verified Allergy, Unknown, 03/02/23) Hydrocodone (Verified Allergy, Unknown, 03/24/24) Ibuprofen (Verified Allergy, Unknown, 03/02/23) Penicillins (Verified Allergy, Unknown, 03/02/23) Statins (Verified Allergy, Unknown, 03/02/23) Tramadol (Verified Allergy, Unknown, 03/02/23) Uncoded Allergies: WALNUTS (Allergy, Unknown, 03/02/23) Medications Current Medications Medications Dose Ordered Sig/Yesenia Route Start Time Stop Time Status Last Admin Dose Admin Acetaminophen 325 mg Q4HP PRN PO 12/30/24 01:00 Hold Acetaminophen/ Hydrocodone Bitart 1 tab Q4HP PRN PO 12/30/24 01:00 Hold Temazepam 15 mg QHSP PRN PO 12/30/24 01:00 Ondansetron HCl 4 mg Q4HP PRN IV 12/30/24 01:00 Enoxaparin Sodium 40 mg Q12HR SC 12/30/24 10:00 Hold Nitroglycerin 0.4 mg Q5MINP PRN SL 12/30/24 01:00 Morphine Sulfate 2 mg Q30M PRN IV 12/30/24 01:00 12/30/24 07:36 2 MG Apixaban 5 mg BID PO 12/30/24 10:00 12/30/24 09:36 5 MG Gabapentin 300 mg TID PO 12/30/24 14:00 Pantoprazole Sodium 40 mg BID PO 12/30/24 10:00 Hold Amlodipine Besylate 10 mg DAILY PO 12/30/24 10:00 12/30/24 09:38 10 MG Dicyclomine HCl 10 mg BID PRN PO 12/30/24 07:30 Lactulose 30 ml Q6HR PO 12/30/24 12:00 12/30/24 11:38 30 ML Trazodone HCl 50 mg HS PO 12/30/24 22:00 Patient Own Medication 10 mg DAILY PO 12/30/24 10:30 Dronedarone 400 mg BID PO 12/30/24 10:26 12/30/24 11:38 400 MG Exam Vital Signs Vital Signs Date Time Temp Pulse Resp B/P (MAP) Pulse Ox O2 Delivery O2 Flow Rate FiO2 12/30/24 09:38 144/70 12/30/24 08:06 17 62 12/30/24 06:00 95 12/30/24 04:00 98.4 98.4 12/30/24 02:01 Room Air* 0 21 General Appearance: Alert, Oriented X3, Cooperative, No acute distress Respiratory: Clear to auscultation, Normal air movement Cardiovascular: Regular rate, Normal S1, Normal S2 Abdominal: Normal bowel sounds, Soft, No tenderness Extremities: No clubbing, No cyanosis Labs/Xrays Labs Test 12/29/24 16:58 12/29/24 15:16 12/29/24 00:00 Range/Units Troponin I High Sensitivity 5 </=54 ng/L White Blood Count 4.7 4.4-10.8 10^3/uL Red Blood Count 4.51 4.5-5.90 10^6/uL Hemoglobin 14.8 13.5-17.5 g/dL Hematocrit 43.1 41.0-53.0 % Mean Corpuscular Volume 95.7 80.0-100.0 fL Mean Corpuscular Hemoglobin 32.8 H 28.0-32.0 pg Mean Corpuscular Hemoglobin Concent 34.3 32.0-36.0 g/dL Red Cell Distribution Width 14.0 11.8-14.3 % Platelet Count 204 140-450 10^3/uL Mean Platelet Volume 7.3 6.9-10.8 fL Neutrophils (%) (Auto) 62.3 37.0-80.0 % Lymphocytes (%) (Auto) 23.7 10.0-50.0 % Monocytes (%) (Auto) 10.3 0.0-12.0 % Eosinophils (%) (Auto) 3.1 0.0-7.0 % Basophils (%) (Auto) 0.6 0.0-2.0 % Neutrophils # (Auto) 2.9 1.6-8.6 10 ^3/uL Lymphocytes # (Auto) 1.1 0.4-5.4 10 ^3/uL Monocytes # (Auto) 0.5 0-1.3 10 ^3/uL Eosinophils # (Auto) 0.1 0-0.8 10 ^3/uL Basophils # (Auto) 0 0-0.2 10 ^3/uL Nucleated Red Blood Cells 0.2 % Sodium Level 145 136-145 mmol/L Potassium Level 3.8 3.5-5.1 mmol/L Chloride Level 109 H 98-107 mmol/L Carbon Dioxide Level 25 20-31 mmol/L Anion Gap 11 5-15 Blood Urea Nitrogen 15 9-23 mg/dL Creatinine 1.16 0.700-1.30 mg/dL Glomerular Filtration Rate Calc 77 >90 mL/min BUN/Creatinine Ratio 12.9 10.0-20.0 Serum Glucose 99 74-106 mg/dL Calcium Level 9.0 8.7-10.4 mg/dL Total Bilirubin 0.7 0.2-1.0 mg/dL Aspartate Amino Transferase (AST) 28 13-40 U/L Alanine Aminotransferase (ALT) 44 H 7-40 U/L Alkaline Phosphatase 78 46-116 U/L B-Type Natriuretic Peptide 46.45 0-100 pg/mL Total Protein 6.4 5.7-8.2 g/dL Albumin 4.1 3.2-4.8 g/dL Lipase 56 H 12-53 U/L Urine Color Light-yellow Yellow Urine Clarity Clear Clear Urine pH 5.0 5.0-9.0 Urine Specific [place] 1.017 1.001-1.035 Urine Protein Negative Negative Urine Ketones Negative Negative Urine Blood Negative Negative /uL Urine Nitrite Negative Negative Urine Bilirubin Negative Negative Urine Urobilinogen Normal Negative mg/dL Urine Leukocyte Esterase Negative Negative /uL Urine RBC <1 0 - 3 /hpf Urine Microscopic WBC 1 0-3 /HPF Urine Squamous Epithelial Cells None seen <5 /hpf Urine Uric Acid Crystals Few None Seen /hpf Urine Bacteria None seen None Seen /hpf Urine Glucose Normal Normal mg/dL Urine Opiates Screen Neg NEGATIVE Urine Fentanyl Screen Neg NEGATIVE Urine Barbiturates Screen Neg NEGATIVE Urine Phencyclidine Screen Neg NEGATIVE Urine Amphetamines Screen Neg NEGATIVE Urine Benzodiazepines Screen Neg NEGATIVE Urine Cocaine Screen Neg NEGATIVE Urine Cannabinoids Screen Neg NEGATIVE SEPSIS Sepsis Screen Date sepsis recognized/suspect: Dec 30, 2024 Time Sepsis recognized/suspect: 0203 Recent Procedure: No On Antibiotic Therapy: No Respiratory Rate >20: No Heart Rate >90: No Temp<36 C (96.8 F) or >38.3 C: No SBP <90 or MAP <65 mmHG: No New Acute Mental Status Change: No Is the patient on CPAP, BIPAP,: No Physician Orders *Consult Dr. Scott (12/30/24 06:51) Apixaban (Eliquis) (12/30/24 10:00) Gabapentin Capsule (Neurontin Capsule) (12/30/24 14:00) Pantoprazole Tablet (Protonix Tablet) (12/30/24 10:00) Amlodipine Tablet (Norvasc Tablet) (12/30/24 10:00) Dicyclomine Capsule (Bentyl Capsule) (12/30/24 07:30) Lactulose Oral (12/30/24 12:00) Trazodone Hcl (Desyrel) (12/30/24 22:00) (Nf) Escitalopram Oxalate (Lexapro) (12/30/24 10:30) Dronedarone Hydrochloride (Multaq) (12/30/24 10:26) * Wound Consult (12/30/24 ) Vital Signs Date Time Temp Pulse Resp B/P (MAP) Pulse Ox O2 Delivery O2 Flow Rate FiO2 12/30/24 09:38 144/70 12/30/24 08:06 17 62 154/73 12/30/24 08:00 58 12/30/24 07:36 67 16 147/70 12/30/24 06:00 73 17 142/87 (105) 95 Medications Medications Dose Ordered Sig/Yesenia Route Start Time Stop Time Status Last Admin Dose Admin Amiodarone HCl 200 mg BID PO 12/30/24 10:00 12/30/24 10:18 DC 12/30/24 09:37 200 MG Amlodipine Besylate 10 mg DAILY PO 12/30/24 10:00 12/30/24 09:38 10 MG Apixaban 5 mg BID PO 12/30/24 10:00 12/30/24 09:36 5 MG Dronedarone 400 mg BID PO 12/30/24 10:26 12/30/24 11:38 400 MG Lactulose 30 ml Q6HR PO 12/30/24 12:00 12/30/24 11:38 30 ML Morphine Sulfate 2 mg Q30M PRN IV 12/30/24 01:00 12/30/24 07:36 2 MG Assessment/Plan Assessment/Plan Chest Pain Assessment: Patient presents with chest pain requiring hospital admission. Negative troponins rule out acute myocardial infarction. Recent left heart angiogram on 11/29/24 showed no angiographic evidence of epicardial coronary artery disease with preserved ejection fraction of 65%. Patient has multiple prior admissions for similar presentations. Episodes of bradycardia noted, though current heart rate is in the seventies. Plan: - Admit for chest pain evaluation - Consult cardiology for chest pain management - Cardiology to optimize medical therapy Paroxysmal Atrial Fibrillation Assessment: Patient has established paroxysmal atrial fibrillation currently managed with antiarrhythmic and anticoagulation therapy. Plan: - Continue Multaq 400 mg BID - Continue Eliquis 5 mg BID Hypertension Assessment: Patient has underlying hypertension requiring ongoing medical management. Plan: - Continue amlodipine 10 mg daily Depression Assessment: Patient has history of depression managed with antidepressant therapy. Plan: - Continue Lexapro 10 mg daily - Continue trazodone at bedtime Benign Prostatic Hyperplasia Assessment: Patient has BPH managed with alpha-santo therapy. Plan: - Continue Flomax 0.4 mg Plan discussed with: Patient My Orders Orders - BLAIRE MCLEOD Procedure Category Date Status Time *Consult Dr. Scott CONS 12/30/24 Transmitted 06:51 Apixaban (Eliquis) PHA 12/30/24 In Process 10:00 Gabapentin Capsule PHA 12/30/24 In Process (Neurontin Capsule) 14:00 Pantoprazole Tablet PHA 12/30/24 In Process (Protonix Tablet) 10:00 Amlodipine Tablet PHA 12/30/24 In Process (Norvasc Tablet) 10:00 Dicyclomine Capsule PHA 12/30/24 In Process (Bentyl Capsule) 07:30 Lactulose Oral PHA 12/30/24 In Process 12:00 Trazodone Hcl PHA 12/30/24 In Process (Desyrel) 22:00 (Nf) Escitalopram PHA 12/30/24 In Process Oxalate (Lexapro) 10:30 Dronedarone PHA 12/30/24 In Process Hydrochloride (Multaq) 10:26 * Wound Consult CONS 12/30/24 Transmitted Date of Service: Dec 30, 2024 Billing Provider: VERONICA HAYWOOD MD Common Visit Codes: [id number] INP/OBS CARE (MOD) BLAIRE MCLEOD CLOUD AUTOMATION TESTER Dec 30, 2024 12:34
[2024-12-30 13:00] VITALS: BP 152/56; PULSE 56; RESP 18; TEMP 98.2; O2SAT 95
[2024-12-30] MEDS: GABAPENTIN 300 MG CAP PO SCH (14:04)
--- NOTE | 2024-12-30 15:25 | ECG ---
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
[2024-12-30] MEDS: DICYCLOMINE HCL 10 MG CAP PO PRN (16:38)
[2024-12-30 16:48] VITALS: BP 154/87; PULSE 65; RESP 18; TEMP 98; O2SAT 98
[2024-12-30] MEDS ORDERED: MORPHINE SULFATE INJ 2 MG/ml SYRG IV PRN (17:45)
[2024-12-30] MEDS: HYDROmorphone HCL 2 MG/ML VL/or syr IV PRN (18:18)
[2024-12-30 21:00] VITALS: BP 125/71; PULSE 88; RESP 19; TEMP 98.7; O2SAT 95
[2024-12-31] VITALS (10 sets, daily range): BP systolic 104–143; BP diastolic 66–101; PULSE 68–120; RESP 16–19; TEMP 97.9–98.9; O2SAT 92–97
[2024-12-31] MEDS: ONDANSETRON HCL 4 MG/2 ML VIAL IV PRN (07:02)
[2024-12-31 07:38] LABS: Hematocrit 45.9 % (41.0-53.0); Hemoglobin 15.9 g/dL (13.5-17.5); Mean Corpuscular Hemoglobin 32.6 pg (28.0-32.0); Mean Corpuscular Volume 94.6 fL (80.0-100.0); Nucleated Red Blood Cells % 0.0 %
[2024-12-31 07:48] LABS: Alanine Aminotransferase 29 U/L (7-40); Albumin 4.4 g/dL (3.2-4.8); Alkaline Phosphatase 81 U/L (46-116); Anion Gap 10 (5-15); BUN/Creatinine Ratio 9.2 (10.0-20.0); Bilirubin, Total 0.9 mg/dL (0.2-1.0); Blood Urea Nitrogen 10 mg/dL (9-23); Calcium 9.3 mg/dL (8.7-10.4); Carbon Dioxide 23 mmol/L (20-31); Chloride 106 mmol/L (98-107); Potassium 3.7 mmol/L (3.5-5.1); Sodium 139 mmol/L (136-145); Total Protein 7.0 g/dL (5.7-8.2)
[2024-12-31 07:53] LABS: Glucose 127 mg/dL (74-106)
[2024-12-31] MEDS ORDERED: ACETAMINOPHEN 325 MG TAB PO PRN (10:45)
--- NOTE | 2024-12-31 12:05 | DVHINCON2 ---
Date of service: Dec 31, 2024 Reason for Consultation Chest pain, Sinus bradycardia, Paroxysmal atrial fibrillation History of Present Illness HPI The patient is a 49-year-old male who initially presented to the emergency department on 12/29/2024 with complaint of chest pain. He described the pain as l eft-sided, non-radiating, and noted that it resolved without intervention. He was concerned due to a reported home heart rate of 40 bpm, recorded using a pulse oximetry device. Initial electrocardiogram showed sinus bradycardia with a ventricular rate of 54 bpm and no acute ST changes. Laboratory results were notable for hemoglobin 15.9, high-sensitivity troponin 45, potassium 3.7, creatinine 1.09 (GFR 83), BNP 46, lipase 56; toxicology screen was negative. Chest X-ray revealed no acute cardiopulmonary process. At present, the patient reports improvement in chest pain and denies palpitations or shortness of breath. Telemetry review shows sinus rhythm in the 60s. Past medical history is significant for paroxysmal atrial fibrillation, arthritis, anxiety, asthma, GERD, hyperlipidemia, and hypertension. Left heart catheterization and bilateral coronary angiogram (11/2024) revealed no angiographic evidence of epicardial coronary artery disease; normal coronaries with LVEF 65% and normal end-diastolic pressure. Echocardiogram (03/2024) showed a normal-sized left ventricle with normal s ystolic function, LVEF 6570%, no wall motion abnormality, normal right ventricle and atria, trileaflet aortic valve without insufficiency or stenosis, trivial mitral/tricuspid/pulmonic insufficiency, no measurable tricuspid regurgitation jet, and no pericardial effusion. Home Meds Active Scripts Calcium Carbonate (Tums) 500 Mg Chw, 2-3 TAB PO QHSP PRN, #90 TAB.CHEW prn abdominal pain Prov:YOSHI BONNER MD 09/05/24 Nitroglycerin (Nitrostat) 0.4 Mg Sub, 0.4 MG SL Q12HP PRN, #10 TAB Prov:APOORVA GILLESPIE PAC 08/25/24 Gabapentin (Gabapentin) 300 Mg Cap, 1 CAP PO TID, #90 CAP 5 Refills Prov:MCKENNA ROTH NP 05/24/24 Amiodarone HCl (Amiodarone HCl) 200 Mg Tab, 200 MG PO BID for 30 Days, #60 TAB Prov:MCKENNA ROTH NP 05/24/24 Pantoprazole Sodium Sesquihydr (Pantoprazole Sodium) 40 Mg Tab, 1 TAB PO BID for 30 Days, #60 TAB Prov:MCKENNA ROTH ARCHITECTURAL MODELER 11/15/23 Reported Medications Trazodone Hcl (Trazodone Hcl) 100 Mg Tab, 50 MG PO, TAB 11/29/24 Escitalopram Oxalate (Lexapro) 5 Mg Tab, 5 MG PO DAILY for depresion, TAB 11/29/24 Amlodipine Besylate (Amlodipine Besylate) 10 Mg Tab, 1 TAB PO DAILY 11/13/24 Beclomethasone Dipropionate (Qvar Redihaler) 80 Mcg/Act Aer, 2 PUFF IN BID, AER 03/25/24 Albuterol Sulfate (Albuterol Sulfate Hfa) 108 Mcg/Act Aer, 1 PUFF INH Q4HPRN PRN for SHORTNESS OF BREATH 03/25/24 Apixaban Base (ELIQUIS) 5 Mg Tab, 5 MG PO BID, TAB 10/12/23 Dicyclomine Hcl (Dicyclomine Hcl) 20 Mg Tab, 10 MG PO BID PRN for ABD MUSCLE SPASM, MG 10/12/23 Past Medical History Patient Family History: Cerebrovascular accident (CVA) G8 MOTHER ([place]) Diabetes mellitus G8 FATHER, G8 BROTHER, FHx: alcohol abuse G8 BROTHER, Review of Systems Comments A 14-point review of systems is negative unless otherwise noted in HPI H&P Exam Vital Signs Vital Signs Date Time Temp Pulse Resp B/P (MAP) Pulse Ox O2 Delivery O2 Flow Rate FiO2 12/31/24 09:49 143/83 12/31/24 08:51 98.9 120 18 92 98.9 12/31/24 07:51 Room Air* 0 21 Comments Heart: S1 and S2 present. The patient is in sinus rhythm. Lungs: Clear to auscultation Abdomen: Benign. Extremities: Distal pulses palpable, 2+. No evidence for peripheral edema Labs/Xrays Labs Test 12/31/24 06:21 12/29/24 16:58 12/29/24 15:16 12/29/24 00:00 Range/Units White Blood Count 5.4 4.4-10.8 10^3/uL Red Blood Count 4.86 4.5-5.90 10^6/uL Hemoglobin 15.9 13.5-17.5 g/dL Hematocrit 45.9 41.0-53.0 % Mean Corpuscular Volume 94.6 80.0-100.0 fL Mean Corpuscular Hemoglobin 32.6 H 28.0-32.0 pg Mean Corpuscular Hemoglobin Concent 34.5 32.0-36.0 g/dL Red Cell Distribution Width 14.0 11.8-14.3 % Platelet Count 222 140-450 10^3/uL Mean Platelet Volume 7.6 6.9-10.8 fL Neutrophils (%) (Auto) 63.9 37.0-80.0 % Lymphocytes (%) (Auto) 23.2 10.0-50.0 % Monocytes (%) (Auto) 9.3 0.0-12.0 % Eosinophils (%) (Auto) 3.2 0.0-7.0 % Basophils (%) (Auto) 0.4 0.0-2.0 % Neutrophils # (Auto) 3.5 1.6-8.6 10 ^3/uL Lymphocytes # (Auto) 1.3 0.4-5.4 10 ^3/uL Monocytes # (Auto) 0.5 0-1.3 10 ^3/uL Eosinophils # (Auto) 0.2 0-0.8 10 ^3/uL Basophils # (Auto) 0 0-0.2 10 ^3/uL Nucleated Red Blood Cells 0.0 % Sodium Level 139 # 136-145 mmol/L Potassium Level 3.7 3.5-5.1 mmol/L Chloride Level 106 98-107 mmol/L Carbon Dioxide Level 23 20-31 mmol/L Anion Gap 10 5-15 Blood Urea Nitrogen 10 9-23 mg/dL Creatinine 1.09 0.700-1.30 mg/dL Glomerular Filtration Rate Calc 83 >90 mL/min BUN/Creatinine Ratio 9.2 L 10.0-20.0 Serum Glucose 127 H 74-106 mg/dL Calcium Level 9.3 8.7-10.4 mg/dL Total Bilirubin 0.9 0.2-1.0 mg/dL Aspartate Amino Transferase (AST) 22 13-40 U/L Alanine Aminotransferase (ALT) 29 7-40 U/L Alkaline Phosphatase 81 46-116 U/L Total Protein 7.0 5.7-8.2 g/dL Albumin 4.4 3.2-4.8 g/dL Troponin I High Sensitivity 5 </=54 ng/L B-Type Natriuretic Peptide 46.45 0-100 pg/mL Lipase 56 H 12-53 U/L Urine Color Light-yellow Yellow Urine Clarity Clear Clear Urine pH 5.0 5.0-9.0 Urine Specific [place] 1.017 1.001-1.035 Urine Protein Negative Negative Urine Ketones Negative Negative Urine Blood Negative Negative /uL Urine Nitrite Negative Negative Urine Bilirubin Negative Negative Urine Urobilinogen Normal Negative mg/dL Urine Leukocyte Esterase Negative Negative /uL Urine RBC <1 0 - 3 /hpf Urine Microscopic WBC 1 0-3 /HPF Urine Squamous Epithelial Cells None seen <5 /hpf Urine Uric Acid Crystals Few None Seen /hpf Urine Bacteria None seen None Seen /hpf Urine Glucose Normal Normal mg/dL Urine Opiates Screen Neg NEGATIVE Urine Fentanyl Screen Neg NEGATIVE Urine Barbiturates Screen Neg NEGATIVE Urine Phencyclidine Screen Neg NEGATIVE Urine Amphetamines Screen Neg NEGATIVE Urine Benzodiazepines Screen Neg NEGATIVE Urine Cocaine Screen Neg NEGATIVE Urine Cannabinoids Screen Neg NEGATIVE Assessment/Plan Plan Recognizing presentation/recent C finding, ACS at this point is not considered As ACS is not considered, no indication warranted for ischemic workup at present time 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 prophylaxis due to paroxysmal atrial fibrillation is advised Request for 2D Echocardiogram Proceed with close rate and rhythm surveillance Proceed with close hemodynamic surveillance Proceed with optimized blood pressure control Transfuse to sustain HGB levels above 7.0 Sustain Magnesium level greater than 2.0 Sustain Potassium level greater than 4.0 Follow up renal function and electrolytes Continue Multaq 400mg BID Continue Eliquis 5mg BID Management in Telemetry Will proceed to follow from a cardiac perspective Further recommendations per clinical progression All available labs, EKGs, and images were personally reviewed Patient's status, findings, and plan of care was discussed and reviewed with supervising physician Dr. Scott, who is in agreement with current plan of care. Plan of care discussed with and agreed upon by patient/family/Primary RN. Prognosis: Guarded Thank you for allowing me to participate in the care of this patient. Further recommendations will depend on clinical progression, hospitalist, and other consultants. Will continue to follow with Primary. If you have any questions, please do not hesitate to contact me. A total of 75 minutes was spent reviewing the patient record, examining the patient, making a diagnostic and therapeutic plan, discussing this plan with medical personnel, following up on diagnostic studies and following the patient for clinical stability excluding any and all procedures. At least 50% of this time was spent in direct, [id number] contact. Plan discussed with: Patient ROGELIO FREY NP Dec 31, 2024 12:05
[2024-12-31] MEDS: MAALOX PLUS or MAALOX 30 ML GT PRN (17:25)
--- NOTE | 2024-12-31 19:25 | DVHPN2 ---
Progress Note Date Seen: Dec 31, 2024 Medical Necessity Reason Pt with a Central, PICC or Fol: No Subjective Review of Systems: CVS:Normal, RESPIRATORY:Normal, GI:Normal, NEURO:Normal Objective vital signs Vital Sign Date Time Temp Pulse Resp B/P (MAP) Pulse Ox O2 Delivery O2 Flow Rate FiO2 12/31/24 16:32 98.4 87 19 104/73 (83) 96 98.4 12/31/24 07:51 Room Air* 0 21 Total Intake and Output 12/30/24 12/30/24 12/31/24 15:00 23:00 07:00 Intake Total 750 ml 940 ml Balance 750 ml 940 ml medications Current Medications Medications Dose Ordered Sig/Yesenia Route Start Time Stop Time Status Last Admin Dose Admin Acetaminophen/ Hydrocodone Bitart 1 tab Q4HP PRN PO 12/30/24 01:00 Hold Temazepam 15 mg QHSP PRN PO 12/30/24 01:00 Ondansetron HCl 4 mg Q4HP PRN IV 12/30/24 01:00 12/31/24 07:02 4 MG Enoxaparin Sodium 40 mg Q12HR SC 12/30/24 10:00 Hold Nitroglycerin 0.4 mg Q5MINP PRN SL 12/30/24 01:00 Morphine Sulfate 2 mg Q30M PRN IV 12/30/24 01:00 12/30/24 14:17 2 MG Apixaban 5 mg BID PO 12/30/24 10:00 12/31/24 09:49 5 MG Gabapentin 300 mg TID PO 12/30/24 14:00 12/31/24 13:48 300 MG Pantoprazole Sodium 40 mg BID PO 12/30/24 10:00 Hold Amlodipine Besylate 10 mg DAILY PO 12/30/24 10:00 12/31/24 09:49 10 MG Dicyclomine HCl 10 mg BID PRN PO 12/30/24 07:30 12/31/24 13:54 10 MG Lactulose 30 ml Q6HR PO 12/30/24 12:00 12/30/24 11:38 30 ML Trazodone HCl 50 mg HS PO 12/30/24 22:00 12/30/24 21:53 50 MG Patient Own Medication 10 mg DAILY PO 12/30/24 10:30 Dronedarone 400 mg BID PO 12/30/24 10:26 12/31/24 09:48 400 MG Acetaminophen 650 mg Q4HP PRN PO 12/31/24 10:45 Hold Al Hydrox/Mg Hydrox/Simethicone 15 ml Q8HP PRN GT 12/31/24 14:00 12/31/24 17:25 15 ML Examination: GENERAL:Normal, LUNGS:Normal, CVS:Normal, ABDOMEN:Normal, SKIN:Normal, NEURO:Normal laboratory and microbiology Laboratory Tests 12/31/24 06:21 Test 12/31/24 06:21 Range/Units Serum Glucose 127 H 74-106 mg/dL Problem List/Assessment/Plan Problem List/Assessment/Plan Mr. Hogan had a recent left heart catheterization on November 29, 2024, which showed no angiographic evidence of epicardial coronary artery disease and preserved ejection fraction at 65%. This morning, the patient went into atrial fibrillation with rapid ventricular response but subsequently converted back to a controlled rhythm. The patient has a known history of paroxysmal atrial fibrillation and continues on Multaq 400mg twice daily and Eliquis 5mg twice daily. He also continues treatment for hypertension with amlodipine 10mg and for depression with Lexapro 10mg daily and trazodone at bedtime. For benign prostatic hyperplasia, he continues Flomax 0.4mg. Chest Pain Assessment: Patient recently underwent a left heart catheterization on 11/29/24, which showed no angiographic evidence of epicardial coronary artery disease. The ejection fraction was preserved at 65%. Cardiology is optimizing medical therapy. The patient can be discharged once cleared by cardiology. Plan: - Await cardiology clearance for discharge - Continue medical therapy as optimized by cardiology Atrial Fibrillation Assessment: Patient has a history of paroxysmal atrial fibrillation. This morning, the patient experienced an episode of atrial fibrillation with rapid ventricular response (AFib-RVR) but subsequently returned to a controlled rhythm. Plan: - Continue Multaq - Continue Eliquis Hypertension Assessment: Patient has a history of hypertension, currently managed with medication. Plan: - Continue amlodipine Depression Assessment: Patient has a history of depression, currently managed with medication. Plan: - Continue Lexapro - Continue trazodone at bedtime Benign Prostatic Hyperplasia (BPH) Assessment: Patient has a history of BPH, currently managed with medication. Plan: - Continue Flomax Plan discussed with: Patient My Orders My Orders Orders - BLAIRE MCLEOD CARRY OUT CLERK Procedure Category Date Status Time Communication Order ORDERS 12/31/24 Transmitted 06:43 * Cardiology Consult CONS 12/31/24 Transmitted 07:01 Acetaminophen Tablet PHA 12/31/24 In Process (Tylenol Tablet) 10:45 Alum & Mag PHA 12/31/24 In Process Hydrox-Simethicone 14:00 Dietary Evaluation Review Recommendations by RD: Dietary education by RD, Protein Supplementation Comments: 1) Initiate MVI @ 1 tb qd 2) Initiate Ensure High Protein qd 3) Refer to outpatient RD for weight management 4) Follow-up with cardiology 5) Continue to monitor I&O, labs, and skin integrity Expected Outcomes/Goals: 1) appetite and labs to improve 2) wound to improve 3) gradual wt loss 4) f/u in 3-5 days Date of Service: Dec 31, 2024 Billing Provider: VERONICA HAYWOOD MD Common Visit Codes: [id number] INP/OBS CARE (MOD) BLAIRE MCLEOD CARRY OUT CLERK Dec 31, 2024 19:25
[2025-01-01 01:00] VITALS: BP 111/70; PULSE 81; RESP 17; TEMP 98.2; O2SAT 97
[2025-01-01 05:00] VITALS: BP 106/73; PULSE 78; RESP 18; TEMP 98.4; O2SAT 96
[2025-01-01 08:00] VITALS: PULSE 110; PULSE 68; RESP 16
--- NOTE | 2025-01-01 08:20 | DVHPN2 ---
Progress Note - Dictate Date Seen: Jan 01, 2025 Medical Necessity Reason Pt with a Central, PICC or Fol: No vital signs Vital Sign Date Time Temp Pulse Resp B/P (MAP) Pulse Ox O2 Delivery O2 Flow Rate FiO2 01/01/25 05:00 98.4 78 18 106/73 (84) 96 98.4 12/31/24 20:20 Room Air* 0 21 Total Intake and Output 12/31/24 12/31/24 01/01/25 15:00 23:00 07:00 Intake Total 690 ml 800 ml Balance 690 ml 800 ml medications Current Medications Medications Dose Ordered Sig/Yesenia Route Start Time Stop Time Status Last Admin Dose Admin Acetaminophen/ Hydrocodone Bitart 1 tab Q4HP PRN PO 12/30/24 01:00 Hold Temazepam 15 mg QHSP PRN PO 12/30/24 01:00 Ondansetron HCl 4 mg Q4HP PRN IV 12/30/24 01:00 12/31/24 07:02 4 MG Enoxaparin Sodium 40 mg Q12HR SC 12/30/24 10:00 Hold Nitroglycerin 0.4 mg Q5MINP PRN SL 12/30/24 01:00 Morphine Sulfate 2 mg Q30M PRN IV 12/30/24 01:00 12/30/24 14:17 2 MG Apixaban 5 mg BID PO 12/30/24 10:00 12/31/24 22:52 5 MG Gabapentin 300 mg TID PO 12/30/24 14:00 01/01/25 05:00 300 MG Pantoprazole Sodium 40 mg BID PO 12/30/24 10:00 Hold Amlodipine Besylate 10 mg DAILY PO 12/30/24 10:00 12/31/24 09:49 10 MG Dicyclomine HCl 10 mg BID PRN PO 12/30/24 07:30 12/31/24 13:54 10 MG Lactulose 30 ml Q6HR PO 12/30/24 12:00 12/30/24 11:38 30 ML Trazodone HCl 50 mg HS PO 12/30/24 22:00 12/31/24 22:52 50 MG Patient Own Medication 10 mg DAILY PO 12/30/24 10:30 Dronedarone 400 mg BID PO 12/30/24 10:26 12/31/24 22:51 400 MG Acetaminophen 650 mg Q4HP PRN PO 12/31/24 10:45 Hold Al Hydrox/Mg Hydrox/Simethicone 15 ml Q8HP PRN GT 12/31/24 14:00 01/01/25 04:58 15 ML laboratory and microbiology Laboratory Tests 12/31/24 06:21 Test 12/31/24 06:21 Range/Units Serum Glucose 127 H 74-106 mg/dL Assessment/Plan Patient is 49 year old male who presented to hospital for chest pain. He has had repeated ED visits and hospitalizations for chest pain. He is known to our practice from outside and before. Does have history of Paroxysmal Atrial fibrillation, for which he takes Eliquis. Does report occasional bradycardia. Denies recent palpitation. Not in acute distress. No carotid bruit. No JVD. Mucosa is pink and wet. Lungs: Clear to auscultation. Cardiac: Regular, no thrill/gallop, Abdomen is soft, distended. There is no gross mass/hepatomegaly. Abdomen is distended. T here is no rebound tenderness. Extremities reveal 1+ edema bilaterally. Dorsalis pedis is 2+ bilateral. Past medical history includes learning disability, hypertension, paroxysmal AFib (on Eliquis as outpatient), asthma, osteoarthritis, anxiety/depression, BPH, hyperlipidemia (on Repatha as outpatient), migraines, history of vitamin-D deficiency and magnesium deficiency, CKD, GERD, short episodes of SVT and mild mitral valve prolapse. Does have history of repeated abdominal pain / distension: for which follows with GI He is allergic to statins and is on Repatha as outpatient. Nuclear stress test of February 2023 did not reveal ischemia and reported ejection fraction of 77%. Echocardiogram of December 24, 2022 (performed in the office) revealed ejection fraction of 65-70%, mild MR/TR/PI and mild mitral valve prolapse Echocardiogram of October 13, 2023 had revealed ejection fraction of 64%, trace MR/TR/PI Echocardiogram of March 25, 2024 revealed ejection fraction of 65-70 percent, there was no wall motion abnormality. There was trace MR/TR/PI. Echocardiogram of 2024 (performed in [facility]) revealed: EF of 65%, no wall motion abnormalities and trace TR LHC of November 2024: No angiographic evidence for epicardial coronary artery disease (normal coronaries). LVEF of 65% with normal EDP. BNP: 46.45 Troponin (high sensitive): 4 - 5 UDS: non-revealing Chest xry revealed: IMPRESSION: No radiographic evidence of acute cardiopulmonary process. EKG revealed: NSR, no specific ST T changes Telemetry has revealed sinus rhythm. There has been occasions of PAF Patient is a 49-year-old gentleman who presented with atypical chest pains. Serial high sensitive troponin has been negative. EKG has been nonrevealing. Has recent non-revealing LHC. ACS is not considered. Does have PAF and is on full anticoagulation. Atypical chest pain Paroxysmal AFib Hypertension Depression BPH SVT Cardiac suggestion for management: Management in tele Follow-up electrolytes and kidney function tests and correct abnormalities. Keep potassium above 4 and magnesium above 2 On Eliquis Optimized medical therapy, Lifestyle and risk factor modifications Multaq: 400 mg PO BID Cardiac kovacs, can be followed as outpatient Further evaluation and management depends on the above and clinical course A total of 55 minutes was spent reviewing the patient record, examining the patient, making a diagnostic and therapeutic plan, discussing this plan with medical personnel, following up on diagnostic studies and following the patient for clinical stability excluding any and all procedures. At least 50% of this time was spent in direct, [id number] contact. Thank you for allowing me to participate in this patient's care. Further recommendations will depend on patient's clinical course. Please do not hesitate to contact me if you have any questions or concerns. This medical document was created using electronic medical record system with [employer] computerized dictation system. Although this document has been carefully reviewed, there may still be some phonetic and typographical errors. These areas are purely typographical due to the imperfection of the software programs, and do not reflect any compromise in the patient's medical care. Dietary Evaluation Review Recommendations by RD: Dietary education by RD, Protein Supplementation Comments: 1) Initiate MVI @ 1 tb qd 2) Initiate Ensure High Protein qd 3) Refer to outpatient RD for weight management 4) Follow-up with cardiology 5) Continue to monitor I&O, labs, and skin integrity Expected Outcomes/Goals: 1) appetite and labs to improve 2) wound to improve 3) gradual wt loss 4) f/u in 3-5 days Plan discussed with: Patient, Other (nurse) APOORVA JON MD Jan 01, 2025 08:20
[2025-01-01 09:00] VITALS: BP 138/90; PULSE 78; RESP 19; TEMP 98.3; O2SAT 98
[2025-01-01] MEDS ORDERED: DRON400T PO (11:25)
--- NOTE | 2025-01-01 11:27 | DVHPN2 ---
Progress Note - Dictate Medical Necessity Reason Pt with a Central, PICC or Fol: No vital signs Vital Sign Date Time Temp Pulse Resp B/P (MAP) Pulse Ox O2 Delivery O2 Flow Rate FiO2 01/01/25 09:37 138/90 01/01/25 09:00 98.3 78 19 98 98.3 01/01/25 08:00 Room Air* 0 21 Total Intake and Output 12/31/24 12/31/24 01/01/25 15:00 23:00 07:00 Intake Total 690 ml 800 ml Balance 690 ml 800 ml medications Current Medications Medications Dose Ordered Sig/Yesenia Route Start Time Stop Time Status Last Admin Dose Admin Acetaminophen/ Hydrocodone Bitart 1 tab Q4HP PRN PO 12/30/24 01:00 Hold Temazepam 15 mg QHSP PRN PO 12/30/24 01:00 Ondansetron HCl 4 mg Q4HP PRN IV 12/30/24 01:00 01/01/25 08:38 4 MG Enoxaparin Sodium 40 mg Q12HR SC 12/30/24 10:00 Hold Nitroglycerin 0.4 mg Q5MINP PRN SL 12/30/24 01:00 Morphine Sulfate 2 mg Q30M PRN IV 12/30/24 01:00 12/30/24 14:17 2 MG Apixaban 5 mg BID PO 12/30/24 10:00 01/01/25 09:37 5 MG Gabapentin 300 mg TID PO 12/30/24 14:00 01/01/25 05:00 300 MG Pantoprazole Sodium 40 mg BID PO 12/30/24 10:00 Hold Amlodipine Besylate 10 mg DAILY PO 12/30/24 10:00 01/01/25 09:37 10 MG Dicyclomine HCl 10 mg BID PRN PO 12/30/24 07:30 12/31/24 13:54 10 MG Lactulose 30 ml Q6HR PO 12/30/24 12:00 12/30/24 11:38 30 ML Trazodone HCl 50 mg HS PO 12/30/24 22:00 12/31/24 22:52 50 MG Patient Own Medication 10 mg DAILY PO 12/30/24 10:30 Dronedarone 400 mg BID PO 12/30/24 10:26 01/01/25 09:37 400 MG Acetaminophen 650 mg Q4HP PRN PO 12/31/24 10:45 Hold Al Hydrox/Mg Hydrox/Simethicone 15 ml Q8HP PRN GT 12/31/24 14:00 01/01/25 04:58 15 ML laboratory and microbiology Laboratory Tests 12/31/24 06:21 Test 12/31/24 06:21 Range/Units Serum Glucose 127 H 74-106 mg/dL Dietary Evaluation Review Recommendations by RD: Dietary education by RD, Protein Supplementation Comments: 1) Initiate MVI @ 1 tb qd 2) Initiate Ensure High Protein qd 3) Refer to outpatient RD for weight management 4) Follow-up with cardiology 5) Continue to monitor I&O, labs, and skin integrity Expected Outcomes/Goals: 1) appetite and labs to improve 2) wound to improve 3) gradual wt loss 4) f/u in 3-5 days MCKENNA ROTH NP Jan 01, 2025 11:27
--- NOTE | 2025-01-01 11:28 | DVHDS2 ---
Discharge Summary Date of Admission Dec 30, 2024 at 00:57 Date of Discharge: Jan 01, 2025 Labs/Diagnostic Data: Laboratory Results Test 12/31/24 06:21 12/29/24 16:58 12/29/24 15:16 12/29/24 00:00 White Blood Count 5.4 10^3/uL (4.4-10.8) Red Blood Count 4.86 10^6/uL (4.5-5.90) Hemoglobin 15.9 g/dL (13.5-17.5) Hematocrit 45.9 % (41.0-53.0) Mean Corpuscular Volume 94.6 fL (80.0-100.0) Mean Corpuscular Hemoglobin 32.6 pg (28.0-32.0) Mean Corpuscular Hemoglobin Concent 34.5 g/dL (32.0-36.0) Red Cell Distribution Width 14.0 % (11.8-14.3) Platelet Count 222 10^3/uL (140-450) Mean Platelet Volume 7.6 fL (6.9-10.8) Neutrophils (%) (Auto) 63.9 % (37.0-80.0) Lymphocytes (%) (Auto) 23.2 % (10.0-50.0) Monocytes (%) (Auto) 9.3 % (0.0-12.0) Eosinophils (%) (Auto) 3.2 % (0.0-7.0) Basophils (%) (Auto) 0.4 % (0.0-2.0) Neutrophils # (Auto) 3.5 10 ^3/uL (1.6-8.6) Lymphocytes # (Auto) 1.3 10 ^3/uL (0.4-5.4) Monocytes # (Auto) 0.5 10 ^3/uL (0-1.3) Eosinophils # (Auto) 0.2 10 ^3/uL (0-0.8) Basophils # (Auto) 0 10 ^3/uL (0-0.2) Nucleated Red Blood Cells 0.0 % Sodium Level 139 mmol/L (136-145) Potassium Level 3.7 mmol/L (3.5-5.1) Chloride Level 106 mmol/L (98-107) Carbon Dioxide Level 23 mmol/L (20-31) Anion Gap 10 (5-15) Blood Urea Nitrogen 10 mg/dL (9-23) Creatinine 1.09 mg/dL (0.700-1.30) Glomerular Filtration Rate Calc 83 mL/min (>90) BUN/Creatinine Ratio 9.2 (10.0-20.0) Serum Glucose 127 mg/dL (74-106) Calcium Level 9.3 mg/dL (8.7-10.4) Total Bilirubin 0.9 mg/dL (0.2-1.0) Aspartate Amino Transferase (AST) 22 U/L (13-40) Alanine Aminotransferase (ALT) 29 U/L (7-40) Alkaline Phosphatase 81 U/L (46-116) Total Protein 7.0 g/dL (5.7-8.2) Albumin 4.4 g/dL (3.2-4.8) Troponin I High Sensitivity 5 ng/L (</=54) B-Type Natriuretic Peptide 46.45 pg/mL (0-100) Lipase 56 U/L (12-53) Urine Color Light-yellow (Yellow) Urine Clarity Clear (Clear) Urine pH 5.0 (5.0-9.0) Urine Specific [place] 1.017 (1.001-1.035) Urine Protein Negative (Negative) Urine Ketones Negative (Negative) Urine Blood Negative /uL (Negative) Urine Nitrite Negative (Negative) Urine Bilirubin Negative (Negative) Urine Urobilinogen Normal mg/dL (Negative) Urine Leukocyte Esterase Negative /uL (Negative) Urine RBC <1 /hpf (0 - 3) Urine Microscopic WBC 1 /HPF (0-3) Urine Squamous Epithelial Cells None seen /hpf (<5) Urine Uric Acid Crystals Few /hpf (None Seen) Urine Bacteria None seen /hpf (None Seen) Urine Glucose Normal mg/dL (Normal) Urine Opiates Screen Neg (NEGATIVE) Urine Fentanyl Screen Neg (NEGATIVE) Urine Barbiturates Screen Neg (NEGATIVE) Urine Phencyclidine Screen Neg (NEGATIVE) Urine Amphetamines Screen Neg (NEGATIVE) Urine Benzodiazepines Screen Neg (NEGATIVE) Urine Cocaine Screen Neg (NEGATIVE) Urine Cannabinoids Screen Neg (NEGATIVE) Other Laboratory Tests 12/31/24 06:21 Brief Hx & Hospital Course: 49-year-old male with a history of AFib, hypertension, depression presents to emergency room for chest pain which she describes as intermittent and nonradiating. Patient reports his heart rate dropped to the 40s in the ER his heart rate is in the 70s. Patient was admitted on December 30, 2024, for chest pain. Troponin levels were negative, and the patient had an angiogram 1 month ago. He was seen by cardiology during this admission. The patient also complained of abdominal pain; he was educated on his medications, including antidiuretics and constipation medication. A KUB was performed, which showed no acute findings. The patient was cleared for discharge and instructed to follow up with his PCP in 1 week. The patient received proper medical treatment and medications. Vital signs, Imaging and Laboratory Work was monitored daily. All consults recommendations were followed as provided. There were no complaints or new complaints upon discharge, all questions and concerns were answered. Patient was advised to return to the ER or call 911 if any headaches, dizziness, shortness of breath, chest pain, bleeding, fevers, or worsening of medical condition. Patient/Family was counseled about treatment plan, medications, possible side effects, patient verbalized understanding. All questions were answered to the best of my ability. The patient symptoms improved and they are okay to be DC. Condition at Discharge: Stable Final Diagnosis/Problems List ATYPICAL CHEST PAIN, CP R/T ANXIETY HTN DEPRESSION ACS RULED OUT A FIB Discharge Disposition: Home Discharge Instruct/Medications Diet: Cardiac 2g Na,low cholest Activity: No Restrictions, As Tolerated Follow Up/Referral: PCP 1 WEEK Medications: CONTINUE HOME MEDS CONTINUE MULTAQ DC AMIODARONE Scheduled Amlodipine Besylate (Amlodipine Besylate), 1 TAB PO DAILY, (Reported) Apixaban Base (Eliquis), 5 MG PO BID, (Reported) Beclomethasone Dipropionate (Qvar Redihaler), 2 PUFF IN BID, (Reported) Dronedarone Hydrochloride (Multaq), 400 MG PO BID Escitalopram Oxalate (Lexapro), 5 MG PO DAILY, (Reported) Gabapentin (Gabapentin), 1 CAP PO TID Pantoprazole Sodium Sesquihydr (Pantoprazole Sodium), 1 TAB PO BID Scheduled PRN Albuterol Sulfate (Albuterol Sulfate Hfa), 1 PUFF INH Q4HPRN PRN for SHORTNESS OF BREATH, (Reported) Calcium Carbonate (Tums), 2-3 TAB PO QHSP PRN Dicyclomine Hcl (Dicyclomine Hcl), 10 MG PO BID PRN for ABD MUSCLE SPASM, (Reported) Nitroglycerin (Nitrostat), 0.4 MG SL Q12HP PRN Miscellaneous Medications Trazodone Hcl (Trazodone Hcl), 50 MG PO, (Reported) Discontinued Medications Amiodarone HCl (Amiodarone HCl), 200 MG PO BID Discharge Statement: "Patient was advised to return to the ER or call 911 if any headaches, dizziness, shortness of breath, chest pain, abdominal pain, bleeding, fevers, or worsening of medical condition. Patient was counseled about treatment plan, medications, possible side effects, patientverbalized understanding. All questions were answered to the best of my ability. This discharge took greater then 30 minutes in planning, reviewing documentation, counseling the patient, and discussing with other team members." ASSESSMENT ASSESSMENT Assessment ATYPICAL CHEST PAIN, CP R/T ANXIETY HTN DEPRESSION ACS RULED OUT A MCKENNA GONSALES NP Jan 01, 2025 11:28
[2025-01-01 11:43] VITALS: BP 138/90; TEMP 36.8
--- NOTE | 2025-01-01 12:22 | DVH ---
Exam: XY KUB ABDOMEN SINGLE VIEW Indication: abd pain Comparison: XY KUB ABDOMEN SINGLE VIEW on DOS: 10/27/24, CT CT AB PEL WO CON-NO ORAL OR IV on DOS: 08/04 04/29, CT CT AB PEL WO CON-NO ORAL OR IV on DOS: 08/01/24, XY KUB ABDOMEN SINGLE VIEW on DOS: 07/12/24, C T CT AB PEL WO CON-NO ORAL OR IV on DOS: 07/10/24 Technique: 2 radiographic views of the abdomen. Findings: Nonobstructive bowel gas pattern noted. Moderate volume colonic stool. There is no definite evidence for pneumoperitoneum. No abnormal calcifications noted. Impression: Nonobstructive bowel gas pattern noted. Moderate volume colonic stool.
--- NOTE | 2025-01-02 06:16 | ECG ---
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
== END 2025-01-01 13:30 | disposition home or self-care (01) | DRG 880 ==
LOC: ER 14:59 → OVERFLOW 12-30 00:57 → TELE-WESTW 12-30 11:18
PROVIDERS: ADMIT Internal Medicine; ATTEND Internal Medicine
DX: F41.9 Anxiety disorder, unspecified (principal); I47.10 Supraventricular tachycardia, unspecified; I48.0 Paroxysmal atrial fibrillation; N40.0 Benign prostatic hyperplasia without lower urinary tract symptoms; F32.A Depression, unspecified; J45.909 Unspecified asthma, uncomplicated; K21.9 Gastro-esophageal reflux disease without esophagitis; G43.909 Migraine, unspecified, not intractable, without status migrainosus; I34.1 Nonrheumatic mitral (valve) prolapse; N18.9 Chronic kidney disease, unspecified; F81.9 Developmental disorder of scholastic skills, unspecified; I12.9 Hypertensive chronic kidney disease with stage 1 through stage 4 chronic kidney disease, or unspecified chronic kidney disease; E78.5 Hyperlipidemia, unspecified; Z88.8 Allergy status to other drugs, medicaments and biological substances; Z88.6 Allergy status to analgesic agent; Z88.5 Allergy status to narcotic agent; Z88.0 Allergy status to penicillin; Z79.899 Other long term (current) drug therapy; Z79.01 Long term (current) use of anticoagulants; Z83.3 Family history of diabetes mellitus; Z82.3 Family history of stroke
CPT/HCPCS: 36415; 71045; 74018; 80053; 80307; 81001; 83690; 83880; 84484; 85025; 93005; G0378; J2405

== ENCOUNTER 2025-01-16 10:45 | Inpatient (IN) | payer OTHER ==
[~2025-01-16] VITALS: Ht 175.3 cm; Wt 89.9 kg
[~2025-01-16 10:45] MED LIST changes: -AMIO200T13 PO; +DRON400T PO
--- NOTE | 2025-01-16 11:01 | ED.PDOC ---
HPI Comments 49 y/o M, with PMHx of anxiety, asthma, AFib, HTN, and HLD presents to the ED for CC of chest pain. Patient states, he has been experiencing substernal non- radiating chest pain sudden onset, Wednesday (01/12/25). Patient relays, being seen at [facility] for SS and being told symptoms were d/t costochondritis; endorses symptoms not ceasing. Patient reports additional associated symptoms of shortness of breath worsening with ambulation. Patient denies palpitations, numbness, weakness, faintness, nausea, or vomiting. No other symptoms or modifying factors are present at this time. Chief Complaint: Chest Pain Time Seen by MD: 10:50 Primary Care Provider: AYLEEN Allergies: Coded Allergies: Acetaminophen (Verified Allergy, Unknown, 03/02/23) Amoxicillin (Verified Allergy, Unknown, 03/02/23) Codeine (Verified Allergy, Unknown, 03/02/23) Hydrocodone (Verified Allergy, Unknown, 03/24/24) Ibuprofen (Verified Allergy, Unknown, 03/02/23) Penicillins (Verified Allergy, Unknown, 03/02/23) Statins (Verified Allergy, Unknown, 03/02/23) Tramadol (Verified Allergy, Unknown, 03/02/23) Uncoded Allergies: WALNUTS (Allergy, Unknown, 03/02/23) Home Meds Active Scripts Dronedarone Hydrochloride (Multaq) 400 Mg Tab, 400 MG PO BID for 30 Days, #60 TAB Prov:MCKENNA ROTH SECURITY ESCORT 01/01/25 Calcium Carbonate (Tums) 500 Mg Chw, 2-3 TAB PO QHSP PRN, #90 TAB.CHEW prn abdominal pain Prov:YOSHI BONNER MD 09/05/24 Nitroglycerin (Nitrostat) 0.4 Mg Sub, 0.4 MG SL Q12HP PRN, #10 TAB Prov:APOORVA GILLESPIE PAC 08/25/24 Gabapentin (Gabapentin) 300 Mg Cap, 1 CAP PO TID, #90 CAP 5 Refills Prov:MCKENNA ROTH NP 05/24/24 Pantoprazole Sodium Sesquihydr (Pantoprazole Sodium) 40 Mg Tab, 1 TAB PO BID for 30 Days, #60 TAB Prov:MCKENNA ROTH SECURITY ESCORT 11/15/23 Reported Medications Trazodone Hcl (Trazodone Hcl) 100 Mg Tab, 50 MG PO, TAB 11/29/24 Escitalopram Oxalate (Lexapro) 5 Mg Tab, 5 MG PO DAILY for depresion, TAB 11/29/24 Amlodipine Besylate (Amlodipine Besylate) 10 Mg Tab, 1 TAB PO DAILY 11/13/24 Beclomethasone Dipropionate (Qvar Redihaler) 80 Mcg/Act Aer, 2 PUFF IN BID, AER 03/25/24 Albuterol Sulfate (Albuterol Sulfate Hfa) 108 Mcg/Act Aer, 1 PUFF INH Q4HPRN PRN for SHORTNESS OF BREATH 03/25/24 Apixaban Base (ELIQUIS) 5 Mg Tab, 5 MG PO BID, TAB 10/12/23 Dicyclomine Hcl (Dicyclomine Hcl) 20 Mg Tab, 10 MG PO BID PRN for ABD MUSCLE SPASM, MG 10/12/23 Information Source: Patient Mode of Arrival: Ambulatory Severity: Moderate Timing: Days Duration: Since onset Prehospital treatment: None Location: Substernal Radiation: No Radiation Onset: At Rest Cardiac Risk Factors: Hyperlipidemia, HTN PE Risk Factors: None History of: None Modifying Factors: Nothing Associated Signs and Symptoms: SOB Past Medical History PAST MEDICAL HISTORY: AFIB, Anxiety, Arthritis, Asthma, GERD, High Lipids, HTN Surgical History: Denies all surgeries Family History Family History: Reviewed,noncontributory to illness, Family hx of heart tim, Family hx of stroke Social History Smoker: Non-Smoker Alcohol: Denies ETOH Use Drugs: Denies Drug Use Lives In: Home Constitutional: denies: chills, diaphoresis, fatigue, fever, malaise, sweats, weakness, others EENTM: denies: blurred vision, double vision, ear bleeding, ear discharge, ear drainage, ear pain, ear ringing, eye pain, eye redness, hearing loss, mouth pain, mouth swelling, nasal discharge, nose bleeding, nose congestion, nose pain, photophobia, tearing, throat pain, throat swelling, voice changes, others Respiratory: reports: shortness of breath; denies: cough, hemoptysis, orthopnea, SOB at rest, SOB with excertion, stridor, wheezing, others Cardiovascular: reports: chest pain; denies: dizzy spells, diaphoresis, Dyspnea on exertion, edema, irregular heart beat, left arm pain, lightheadedness, palpitations, PND, syncope, others Gastrointestinal: denies: abdomen distended, abdominal pain, blood streaked bowels, constipated, diarrhea, dysphagia, difficulty swallowing, hematemesis, melena, nausea, poor appetite, poor fluid intake, rectal bleeding, rectal pain, vomiting, others Genitourinary: denies: burning, dysuria, flank pain, frequency, hematuria, incontinence, penile discharge, penile sore, pain, testicle pain, testicle swelling, urgency, others Neurological: denies: dizziness, fainting, headache, left sided numbness, left sided weakness, numbness, paresthesia, pre-existing deficit, right sided numbn ess, right sided weakness, seizure, speech problems, tingling, tremors, weakness, others Musculoskeletal: denies: back pain, gout, joint pain, joint swelling, muscle pain, muscle stiffness, neck pain, others Integumetry: denies: bruises, change in color, change in hair/nails, dryness, laceration, lesions, lumps, rash, wounds, others Allergic/Immunocompromised: denies: Difficulty Healing, Frequent Infections, Hives, Itching, others Hematologic/Lymphatic: denies: anemia, blood clots, easy bleeding, easy bruising, swollen glands, others Endocrine: denies: excessive hunger, excessive sweating, excessive thirst, excessive urination, flushing, intolerance to cold, intolerance to heat, unexplained weight gain, unexplained weight loss, others Psychiatric: denies: anxiety, bipolar disorder, depression, hopeless, panic disorder, schizophrenia, sleepless, suicidal, others All Other Systems: Reviewed and Negative Physical Exam General Appearance: No Apparent Distress HEENT: Normal ENT Inspection, Pharynx Normal, TMs Normal Neck: Full Range of Motion, Non-Tender, Normal, Normal Inspection Respiratory: Chest Non-Tender, Lungs Clear, No Accessory Muscle Use, No Respiratory Distress, Normal Breath Sounds Cardiovascular: No Edema, No JVD, No Murmur, No Gallop, Normal Peripheral Pulses, Regular Rate/Rhythm Breast Exam: Deferred Gastrointestinal: No Organomegaly, Non Tender, No Pulsatile Mass, Normal Bowel Sounds, Soft Genitalia: Deferred Pelvic: Deferred Rectal: Deferred Extremities: No calf tenderness, Normal capillary refill, Normal inspection, Normal range of motion, Non-tender, No pedal edema Musculoskeletal : Apperance: Normal Neurologic: Alert, med aide II-XII nml as Tested, No Motor Deficits, Normal Affect, Normal Mood, No Sensory Deficits Cerebellar Function: Normal Reflexes: Normal Skin: Dry, Normal Color, Warm Lymphatic: No Adenopathy EKG EKG : Pulse Rate (adult): 73 [place]: Normal Cardiac Rhythm: NSR Block: None Hypertrophy: None ST: Normal Was a procedure done? Was a procedure done?: No CP Differential Dx Differential Diagnosis: Angina, Anxiety / Panic Attack Differential Diagnosis: HTN Essential, HTN Accelerated Differential Diagnosis: Chest Wall Pain, Costochondritis X-Ray, Labs, Meds, VS Vital Signs Date Time Temp Pulse Resp B/P (MAP) Pulse Ox O2 Delivery O2 Flow Rate FiO2 01/16/25 11:53 62 01/16/25 11:45 58 18 114/63 (80) 98 01/16/25 11:45 61 18 99 Room Air 01/16/25 11:42 73 01/16/25 10:52 73 01/16/25 10:49 98.5 72 20 135/79 96 98.5 Lab Test 01/16/25 13:57 01/16/25 11:52 01/16/25 10:57 Range/Units Troponin I High Sensitivity Pending 7 4 </=54 ng/L White Blood Count 5.6 4.4-10.8 10^3/uL Red Blood Count 5.16 4.5-5.90 10^6/uL Hemoglobin 16.7 13.5-17.5 g/dL Hematocrit 48.2 41.0-53.0 % Mean Corpuscular Volume 93.3 80.0-100.0 fL Mean Corpuscular Hemoglobin 32.3 H 28.0-32.0 pg Mean Corpuscular Hemoglobin Concent 34.6 32.0-36.0 g/dL Red Cell Distribution Width 14.1 11.8-14.3 % Platelet Count 240 140-450 10^3/uL Mean Platelet Volume 7.3 6.9-10.8 fL Neutrophils (%) (Auto) 77.3 37.0-80.0 % Lymphocytes (%) (Auto) 14.0 10.0-50.0 % Monocytes (%) (Auto) 6.0 0.0-12.0 % Eosinophils (%) (Auto) 2.3 0.0-7.0 % Basophils (%) (Auto) 0.4 0.0-2.0 % Neutrophils # (Auto) 4.4 1.6-8.6 10 ^3/uL Lymphocytes # (Auto) 0.8 0.4-5.4 10 ^3/uL Monocytes # (Auto) 0.3 0-1.3 10 ^3/uL Eosinophils # (Auto) 0.1 0-0.8 10 ^3/uL Basophils # (Auto) 0 0-0.2 10 ^3/uL Nucleated Red Blood Cells 0.0 % Sodium Level 142 136-145 mmol/L Potassium Level 4.2 3.5-5.1 mmol/L Chloride Level 106 98-107 mmol/L Carbon Dioxide Level 25 20-31 mmol/L Anion Gap 11 5-15 Blood Urea Nitrogen 14 9-23 mg/dL Creatinine 1.25 0.700-1.30 mg/dL Glomerular Filtration Rate Calc 70 >90 mL/min BUN/Creatinine Ratio 11.2 10.0-20.0 Serum Glucose 102 74-106 mg/dL Calcium Level 9.8 8.7-10.4 mg/dL B-Type Natriuretic Peptide 27.48 0-100 pg/mL Current Medications Medications (Trade) Dose Ordered Sig/Yesenia Route Start Time Stop Time Status Last Admin Aspirin 162 mg ONCE ONCE PO 01/16/25 11:00 01/16/25 11:01 DC 01/16/25 11:00 CXY: IMPRESSION: No acute cardiopulmonary disease. The patient was given aspirin here in the emergency department's. The troponin level x2 is negative The BNP is within normal limits The CBC and chemistry panel are within normal limits At this time we feel that the patient can be discharged The patient will follow up with the primary care doctor Images Reviewed?: Images reviewed and evaluated by me Time of 1ST Reevaluation: 11:20 Reevaluation 1ST: Unchanged Patient Education/Counseling: Diagnosis, Treatment, Prognosis, Need For Follow Up Family Education/Counseling: No Family Present SEPSIS Sepsis Screen Physician Orders Troponin-I Hs (01/16/25 13:48) Electrocardigram (01/16/25 11:48) Electrocardigram (01/16/25 13:48) Heplock Iv (01/16/25 10:52) Liability Claims Representative (01/16/25 10:52) Blood Pressure (01/16/25 10:52) Pulse Oximetry (01/16/25 10:52) Chest Two Views Routine (01/16/25 10:52) Drug Screen (01/16/25 10:52) Vital Signs Date Time Temp Pulse Resp B/P (MAP) Pulse Ox O2 Delivery O2 Flow Rate FiO2 01/16/25 11:53 62 01/16/25 11:45 58 18 114/63 (80) 98 01/16/25 11:45 61 18 99 Room Air 01/16/25 11:42 73 01/16/25 10:52 73 01/16/25 10:49 98.5 72 20 135/79 96 98.5 Laboratory Tests Test 01/16/25 10:57 White Blood Count 5.6 10^3/uL (4.4-10.8) Medications Medications Dose Ordered Sig/Yesenia Route Start Time Stop Time Status Last Admin Dose Admin Aspirin 162 mg ONCE ONCE PO 01/16/25 11:00 01/16/25 11:01 DC 01/16/25 11:00 Departure 1 Departure Time of Disposition: 14:15 Impression: Primary Impression: Atypical chest pain Disposition: 01 HOME / SELF CARE / HOMELESS Condition: Fair Discharged With: Self Critical Care Note Critical Care Time?: No Stability Stability form required: No Heart Score Heart Score: Heart Score Response (Comments) Value History Slightly Suspicious 0 EKG N/A 0 Age 45-64 1 Risk Factors 1 or 2 risk factors 1 Troponin N/A 0 Total 2 I personally scribed for GHASSAN MORGAN MD ([email or web address]) on 01/16/25 at 11:01. Electronically submitted by Marlene De La Torre ([email or web address]). I personally scribed for GHASSAN MORGAN MD ([email or web address]) on 01/16/25 at 11:42. Electronically submitted by Mejia Ewing ([email or web address]). I personally scribed for GHASSAN MORGAN MD ([email or web address]) on 01/16/25 at 12:58. Electronically submitted by Marlene De La Torre [email or web address]). GHASSAN MORGAN MD Jan 16, 2025 11:01
[2025-01-16 11:54] LABS: BUN/Creatinine Ratio 11.2 (10.0-20.0); Blood Urea Nitrogen 14 mg/dL (9-23); Glucose 102 mg/dL (74-106)
--- NOTE | 2025-01-16 11:54 | DVH ---
XY CHEST TWO VIEWS ROUTINE CLINICAL HISTORY: chest pain COMPARISON: XY CHEST PORTABLE on DOS: 12/29/24, XR CHEST 1 VIEW on DOS: 12/20/24, XY CHEST TWO VIEWS RO UTINE on DOS: 11/28/24, XR CHEST 1 VIEW on DOS: 11/20/24, XY CHEST PORTABLE on DOS: 11/13/24 TECHNIQUE: Frontal and lateral view of the chest was obtained FINDINGS: Lines and Tubes: None Lungs: No focal consolidation. Pleura: No effusion. No pneumothorax. Cardiomediastinal contours: Unremarkable Bones: No acute osseous abnormality. IMPRESSION: No acute cardiopulmonary disease.
[2025-01-16 11:56] LABS: Anion Gap 11 (5-15); Calcium 9.8 mg/dL (8.7-10.4); Carbon Dioxide 25 mmol/L (20-31); Chloride 106 mmol/L (98-107); Potassium 4.2 mmol/L (3.5-5.1); Sodium 142 mmol/L (136-145)
--- NOTE | 2025-01-16 11:58 | ECG ---
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
[2025-01-16 12:04] LABS: Hematocrit 48.2 % (41.0-53.0); Hemoglobin 16.7 g/dL (13.5-17.5); Mean Corpuscular Hemoglobin 32.3 pg (28.0-32.0); Mean Corpuscular Volume 93.3 fL (80.0-100.0); Nucleated Red Blood Cells % 0.0 %
[2025-01-16] MEDS ORDERED: ONDANSETRON HCL 4 MG/2 ML VIAL IV PRN (14:30)
[2025-01-16] MEDS ORDERED: MORPHINE SULFATE INJ 2 MG/ml SYRG IV PRN (14:30)
[2025-01-16] MEDS ORDERED: CALCIUM CARB 500 MG CHEW TAB PO PRN (14:30)
[2025-01-16] MEDS ORDERED: ALBUTEROL SULF HFA 90MCG INH 200DOSE IN PRN (14:30)
[2025-01-16] MEDS ORDERED: NITROGLYCERIN 0.4 MG SL TAB SL PRN (14:30)
[2025-01-16] MEDS ORDERED: DICYCLOMINE HCL 10 MG PO PRN (14:30)
--- NOTE | 2025-01-16 16:19 | DVHHP2 ---
Admitting Diagnosis: Chest pain History of Present Illness 49 yo male patient with hx of anxiety, A-fib, HTN, HLD c/o substernal non radiating chest pain with associated SOB. Patient was recently seen and diagnose d with costochondritis at [facility]. While in the emergency department the patient was evaluated by the provider, As per provider: Labs, vital signs, and imagining monitored. Patient will be admitted for further evaluation and treatment. I discussed admission with the patient/family and is in agreement to treatment plan. Patient Family History: Cerebrovascular accident (CVA) G8 MOTHER (TREMORS) Diabetes mellitus G8 FATHER, G8 BROTHER, FHx: alcohol abuse G8 BROTHER, Allergies: Coded Allergies: Acetaminophen (Verified Allergy, Unknown, 03/02/23) Amoxicillin (Verified Allergy, Unknown, 03/02/23) Codeine (Verified Allergy, Unknown, 03/02/23) Hydrocodone (Verified Allergy, Unknown, 03/24/24) Ibuprofen (Verified Allergy, Unknown, 03/02/23) Penicillins (Verified Allergy, Unknown, 03/02/23) Statins (Verified Allergy, Unknown, 03/02/23) Tramadol (Verified Allergy, Unknown, 03/02/23) Uncoded Allergies: WALNUTS (Allergy, Unknown, 03/02/23) Home Meds Active Scripts Colchicine (Colchicine) 0.6 Mg Cap, 0.6 MG PO DAILY for 30 Days, #30 CAP Prov:MCKENNA ROTH NP 01/17/25 Dronedarone Hydrochloride (Multaq) 400 Mg Tab, 400 MG PO BID for 30 Days, #60 TAB Prov:MCKENNA ROTH NP 01/01/25 Calcium Carbonate (Tums) 500 Mg Chw, 2-3 TAB PO QHSP PRN, #90 TAB.CHEW prn abdominal pain Prov:YOSHI BONNER MD 09/05/24 Nitroglycerin (Nitrostat) 0.4 Mg Sub, 0.4 MG SL Q12HP PRN, #10 TAB Prov:APOORVA GILLESPIE PAC 08/25/24 Gabapentin (Gabapentin) 300 Mg Cap, 1 CAP PO TID, #90 CAP 5 Refills Prov:MCKENNA ROTH NP 05/24/24 Pantoprazole Sodium Sesquihydr (Pantoprazole Sodium) 40 Mg Tab, 1 TAB PO BID for 30 Days, #60 TAB Prov:MCKENNA ROTH TECHNOLOGY DEVELOPMENT INTERN 11/15/23 Reported Medications Trazodone Hcl (Trazodone Hcl) 100 Mg Tab, 50 MG PO, TAB 11/29/24 Escitalopram Oxalate (Lexapro) 5 Mg Tab, 5 MG PO DAILY for depresion, TAB 11/29/24 Amlodipine Besylate (Amlodipine Besylate) 10 Mg Tab, 1 TAB PO DAILY 11/13/24 Beclomethasone Dipropionate (Qvar Redihaler) 80 Mcg/Act Aer, 2 PUFF IN BID, AER 03/25/24 Albuterol Sulfate (Albuterol Sulfate Hfa) 108 Mcg/Act Aer, 1 PUFF INH Q4HPRN PRN for SHORTNESS OF BREATH 03/25/24 Apixaban Base (ELIQUIS) 5 Mg Tab, 5 MG PO BID, TAB 10/12/23 Dicyclomine Hcl (Dicyclomine Hcl) 20 Mg Tab, 10 MG PO BID PRN for ABD MUSCLE SPASM, MG 10/12/23 Current Medications Current Medications Medications (Trade) Dose Ordered Sig/Yesenia Route PRN Reason Start Time Stop Time Status Last Admin Apixaban (Eliquis) 5 mg BID PO 01/16/25 22:00 01/17/25 16:48 DC 01/17/25 09:46 Gabapentin (Neurontin Capsule) 300 mg TID PO 01/16/25 22:00 01/17/25 16:48 DC 01/17/25 14:00 Pantoprazole Sodium (Protonix Tablet) 40 mg BID PO 01/16/25 22:00 01/17/25 16:48 DC 01/17/25 09:46 Patient Own Medication 1 tab DAILY PO 01/17/25 10:00 UNV Patient Own Medication 2 puff BID IN 01/16/25 22:00 01/17/25 16:48 DC Patient Own Medication 400 mg BID PO 01/16/25 22:00 01/17/25 13:00 DC 01/17/25 10:00 Patient Own Medication 5 mg DAILY PO 01/17/25 10:00 UNV Dicyclomine HCl (Bentyl Capsule) 10 mg BID PO 01/16/25 22:00 01/17/25 16:48 DC 01/17/25 09:47 Amlodipine Besylate (Norvasc Tablet) 10 mg DAILY PO 01/17/25 10:00 01/17/25 16:48 DC 01/17/25 09:47 Citalopram Hydrobromide (CeleXA TABLET) 10 mg DAILY PO 01/17/25 10:00 01/17/25 16:48 DC 01/17/25 09:46 Colchicine (Colcrys) 0.6 mg DAILY PO 01/17/25 10:00 01/17/25 16:48 DC 01/17/25 09:47 Dronedarone (MulTAQ) 400 mg BID PO 01/17/25 22:00 01/17/25 16:48 DC Review of Systems Constitutional: denies chills, denies fever, denies malaise Eyes: denies eye pain, denies vision change ENT: denies ear pain, denies headache, denies nasal congestion, denies painful swallowing, denies voice change Cardiovascular: denies chest pain, denies edema, denies orthopnea, denies palpitations, denies paroxysmal nocturnal dyspnea Respiratory: denies cough, denies shortness of breath Gastrointestinal: denies constipation, denies diarrhea, denies nausea, denies vomiting Genitourinary: denies dysuria, denies frequent urination, denies urethral discharge Musculoskeletal: denies back pain, denies joint pain, denies muscle pain Skin: denies bruising, denies itching, denies rash Neurological: denies focal weakness, denies headache, denies sensory changes Psychiatric: denies anxiety, denies depression Endocrine: denies polydipsia, denies polyuria Hematologic/Lymphatic: denies easy bleeding, denies easy bruising, denies enlarged lymph nodes Allergic/Immunologic: denies allergy, denies hives Vital Signs Vital Signs Date Time Temp Pulse Resp B/P (MAP) Pulse Ox O2 Delivery O2 Flow Rate FiO2 01/17/25 15:30 98.9 80 18 97 01/17/25 12:29 141/87 (105) 01/17/25 08:00 Room Air* 0 21 Physical Exam General Appearance: alert, no distress HEENT: EOMI, PERRLA, normal external inspect of ears, no icterus, no nasal drainage Neck: no carotid bruit, no jugular venous distention (JVD), no lymphadenopathy Chest: normal thorax Respiratory: clear to auscultation, normal air movement Cardiovascular: regular rate and rhythm, no diastolic murmur, no jugular venous distention (JVD), no rub, no systolic murmur Abdominal: soft, no hepatomegaly, no mass, no splenomegaly, no tenderness Genitourinary: grossly normal external Musculoskeletal: no joint tenderness, no swelling Extremities: normal pulses, no calf tenderness, no clubbing, no cyanosis, no edema Skin: no bruising, no jaundice, no rash Neurological: alert, No focal deficit SEPSIS Sepsis Screen Date sepsis recognized/suspect: Jan 16, 2025 Time Sepsis recognized/suspect: 1048 Recent Procedure: No On Antibiotic Therapy: No Respiratory Rate >20: No Heart Rate >90: No Temp<36 C (96.8 F) or >38.3 C: No SBP <90 or MAP <65 mmHG: No New Acute Mental Status Change: No Is the patient on CPAP, BIPAP,: No Physician Orders Electrocardigram (01/16/25 10:48) Electrocardigram (01/16/25 11:48) Electrocardigram (01/16/25 13:48) Heplock Iv (01/16/25 10:52) Financial Systems Analyst (01/16/25 10:52) Blood Pressure (01/16/25 10:52) Pulse Oximetry (01/16/25 10:52) Chest Two Views Routine (01/16/25 10:52) Admit (01/16/25 14:24) Code Status (01/16/25 14:24) Oxygen By Nasal Cannula (01/16/25 14:24) *Consult Dr. Apoorva Pizarro (01/16/25 14:30) Communication Order (01/17/25 07:14) Discharge (01/17/25 11:17) * Metal Engraver Consult (01/17/25 ) *Consult Dr. Erna Troy (01/17/25 11:40) Ct Ab Pel Wo Con-No Oral Or Iv (01/17/25 11:40) Vital Signs Date Time Temp Pulse Resp B/P (MAP) Pulse Ox O2 Delivery O2 Flow Rate FiO2 01/17/25 15:30 98.9 80 18 97 01/17/25 12:29 99.7 77 19 141/87 (105) 97 99.7 01/17/25 09:47 126/86 01/17/25 09:00 98.6 73 19 126/86 (99) 98 98.6 01/17/25 08:00 18 Room Air* 0 21 01/17/25 08:00 72 01/17/25 05:00 98.7 62 17 116/70 (85) 96 98.7 01/17/25 01:55 98.4 58 17 144/78 (100) 99 98.4 01/17/25 01:14 58 17 99 Room Air* 0 21 01/17/25 00:47 98.4 58 17 144/78 (100) 99 98.4 01/17/25 00:00 112/69 01/16/25 23:53 127/67 01/16/25 23:00 117/71 01/16/25 22:53 133/77 01/16/25 14:27 98.3 67 18 130/68 (88) 95 98.3 01/16/25 13:58 66 01/16/25 11:53 62 01/16/25 11:45 58 18 114/63 (80) 98 01/16/25 11:45 61 18 99 Room Air 01/16/25 11:42 73 01/16/25 10:52 73 01/16/25 10:49 98.5 72 20 135/79 96 98.5 Laboratory Tests Test 01/16/25 10:57 White Blood Count 5.6 10^3/uL (4.4-10.8) Medications Medications Dose Ordered Sig/Yesenia Route Start Time Stop Time Status Last Admin Dose Admin Amlodipine Besylate 10 mg DAILY PO 01/17/25 10:00 01/17/25 16:48 DC 01/17/25 09:47 Citalopram Hydrobromide 10 mg DAILY PO 01/17/25 10:00 01/17/25 16:48 DC 01/17/25 09:46 Colchicine 0.6 mg DAILY PO 01/17/25 10:00 01/17/25 16:48 DC 01/17/25 09:47 Results Labs Test 01/16/25 23:15 01/16/25 13:57 01/16/25 10:57 Range/Units Urine Opiates Screen Neg NEGATIVE Urine Fentanyl Screen Neg NEGATIVE Urine Barbiturates Screen Neg NEGATIVE Urine Phencyclidine Screen Neg NEGATIVE Urine Amphetamines Screen Neg NEGATIVE Urine Benzodiazepines Screen Neg NEGATIVE Urine Cocaine Screen Neg NEGATIVE Urine Cannabinoids Screen Neg NEGATIVE Troponin I High Sensitivity 9 </=54 ng/L White Blood Count 5.6 4.4-10.8 10^3/uL Red Blood Count 5.16 4.5-5.90 10^6/uL Hemoglobin 16.7 13.5-17.5 g/dL Hematocrit 48.2 41.0-53.0 % Mean Corpuscular Volume 93.3 80.0-100.0 fL Mean Corpuscular Hemoglobin 32.3 H 28.0-32.0 pg Mean Corpuscular Hemoglobin Concent 34.6 32.0-36.0 g/dL Red Cell Distribution Width 14.1 11.8-14.3 % Platelet Count 240 140-450 10^3/uL Mean Platelet Volume 7.3 6.9-10.8 fL Neutrophils (%) (Auto) 77.3 37.0-80.0 % Lymphocytes (%) (Auto) 14.0 10.0-50.0 % Monocytes (%) (Auto) 6.0 0.0-12.0 % Eosinophils (%) (Auto) 2.3 0.0-7.0 % Basophils (%) (Auto) 0.4 0.0-2.0 % Neutrophils # (Auto) 4.4 1.6-8.6 10 ^3/uL Lymphocytes # (Auto) 0.8 0.4-5.4 10 ^3/uL Monocytes # (Auto) 0.3 0-1.3 10 ^3/uL Eosinophils # (Auto) 0.1 0-0.8 10 ^3/uL Basophils # (Auto) 0 0-0.2 10 ^3/uL Nucleated Red Blood Cells 0.0 % Sodium Level 142 136-145 mmol/L Potassium Level 4.2 3.5-5.1 mmol/L Chloride Level 106 98-107 mmol/L Carbon Dioxide Level 25 20-31 mmol/L Anion Gap 11 5-15 Blood Urea Nitrogen 14 9-23 mg/dL Creatinine 1.25 0.700-1.30 mg/dL Glomerular Filtration Rate Calc 70 >90 mL/min BUN/Creatinine Ratio 11.2 10.0-20.0 Serum Glucose 102 74-106 mg/dL Calcium Level 9.8 8.7-10.4 mg/dL B-Type Natriuretic Peptide 27.48 0-100 pg/mL Microbiology Date/Time Source Procedure Growth Status 01/17/25 01:05 Nose MRSA Screen - Final Complete Plan 1. Atypical chest pain Monitor, cardiology consult, trend troponin 2. Anxiety Monitor, PRN Xanax, restart home meds 3. Depression Monitor, Continue lexapro 4. Hx Atrial Fibrillation Monitor EKG, continue multaq, continue antiarrhythmics 5. Abdominal pain r/t IBS Monitor, PPI, restart declomycin Plan discussed with: Patient, Other MCKENNA ROTH NP Jan 16, 2025 16:19
[2025-01-16] MEDS: NITROGLYCERIN 0.4 MG SL TAB SL PRN (22:53)
[2025-01-17] VITALS (8 sets, daily range): BP systolic 116–144; BP diastolic 70–88; PULSE 58–80; RESP 17–19; TEMP 98.4–99.7; O2SAT 96–99
[2025-01-17] MEDS: APIXABAN 5 MG TAB PO SCH (00:03)
[2025-01-17] MEDS: GABAPENTIN 300 MG CAP PO SCH (00:03)
[2025-01-17] MEDS: PANTOPRAZOLE 40 MG TAB PO SCH (00:03)
[2025-01-17] MEDS: TEMAZEPAM 15 MG CAP PO PRN (00:03)
[2025-01-17] MEDS: DICYCLOMINE HCL 10 MG CAP PO SCH (00:04)
[2025-01-17] MEDS: BECLOMETHASONE DIPROPIONATE IN SCH (00:42)
[2025-01-17 01:32] LABS: Amphetamine Screen, Urine Neg (NEGATIVE); Barbiturate Scree,Urine Neg (NEGATIVE); Benzodiazephine Screen, Urine Neg (NEGATIVE); Cannabinoid Screen, Urine Neg (NEGATIVE); Cocaine Screen, Urine Neg (NEGATIVE); Opiate Scree,Urine Neg (NEGATIVE); Phencyclidine Screen, Urine Neg (NEGATIVE)
--- NOTE | 2025-01-17 07:19 | DVHINCON2 ---
Date of service: Jan 17, 2025 History of Present Illness HPI Patient is 49 year old male who presented to hospital for 3 days of atypical chest pain. Does have some chest tenderness also. Has gone to 2 other different hospitals for same in past week. Cardiology is involved for Cardiac aspects of care. Denies any recent palpitation, DEGROOT, dizziness, cough or shortness of breath. He is known to our practice from outside and before. Does have history of Paroxysmal Atrial fibrillation, for which he takes Eliquis. Home Meds Active Scripts Dronedarone Hydrochloride (Multaq) 400 Mg Tab, 400 MG PO BID for 30 Days, #60 TAB Prov:MCKENNA ROTH WHITE SPOOLER 01/01/25 Calcium Carbonate (Tums) 500 Mg Chw, 2-3 TAB PO QHSP PRN, #90 TAB.CHEW prn abdominal pain Prov:YOSHI BONNER MD 09/05/24 Nitroglycerin (Nitrostat) 0.4 Mg Sub, 0.4 MG SL Q12HP PRN, #10 TAB Prov:APOORVA GILLESPIE PAC 08/25/24 Gabapentin (Gabapentin) 300 Mg Cap, 1 CAP PO TID, #90 CAP 5 Refills Prov:MCKENNA ROTH WHITE SPOOLER 05/24/24 Pantoprazole Sodium Sesquihydr (Pantoprazole Sodium) 40 Mg Tab, 1 TAB PO BID for 30 Days, #60 TAB Prov:MCKENNA ROTH WHITE SPOOLER 11/15/23 Reported Medications Trazodone Hcl (Trazodone Hcl) 100 Mg Tab, 50 MG PO, TAB 11/29/24 Escitalopram Oxalate (Lexapro) 5 Mg Tab, 5 MG PO DAILY for depresion, TAB 11/29/24 Amlodipine Besylate (Amlodipine Besylate) 10 Mg Tab, 1 TAB PO DAILY 11/13/24 Beclomethasone Dipropionate (Qvar Redihaler) 80 Mcg/Act Aer, 2 PUFF IN BID, AER 03/25/24 Albuterol Sulfate (Albuterol Sulfate Hfa) 108 Mcg/Act Aer, 1 PUFF INH Q4HPRN PRN for SHORTNESS OF BREATH 03/25/24 Apixaban Base (ELIQUIS) 5 Mg Tab, 5 MG PO BID, TAB 10/12/23 Dicyclomine Hcl (Dicyclomine Hcl) 20 Mg Tab, 10 MG PO BID PRN for ABD MUSCLE SPASM, MG 10/12/23 Past Medical History Others Past medical history includes learning disability, hypertension, paroxysmal AFib (on Eliquis as outpatient), asthma, osteoarthritis, anxiety/depression, BPH, hyperlipidemia (on Repatha as outpatient), migraines, history of vitamin-D deficiency and magnesium deficiency, CKD, GERD, short episodes of SVT and mild mitral valve prolapse. Does have history of repeated abdominal pain / distension: for which follows with GI He is allergic to statins and is on Repatha as outpatient. Patient Family History: Cerebrovascular accident (CVA) G8 MOTHER (TREMORS) Diabetes mellitus G8 FATHER, G8 BROTHER, FHx: alcohol abuse G8 BROTHER, Smoker: No Hx (Negative) Alocohol: None Drugs: None Review of Systems Constitutional: No symptom reported Ears, Nose, & Throat: No symptom reported Eyes: No symptom reported Cardiovascular: Chest Pain Gastrointestinal: Abdominal Pain (chronic) Hemotologic/Lymphatic: No symptom reported H&P Exam Vital Signs Vital Signs Date Time Temp Pulse Resp B/P (MAP) Pulse Ox O2 Delivery O2 Flow Rate FiO2 01/17/25 05:00 98.7 62 17 116/70 (85) 96 98.7 01/17/25 01:14 Room Air* 0 21 General Appeara: Well developed Head Exam: Normal inspection Eye Exam: bilateral eye PERRL Nasal Exam: Normal inspection Mouth: Normal Inspection Pulmonary/Respiratory: Lungs clear Cardiovascular/Chest: Regular rate Peripheral Pulses: 2+ carotid (R), 2+ carotid (L), 2+ femoral (R), 2+ femoral (L), 2+ dorsalis pedis (R), 2+ dorsalis pedis (L) Abdominal Exam: Normal bowel sounds, Soft Neuro/Mental St: Alert, Oriented Appearance: Appropriate appearance Eye contact/ Speech: Cooperative Labs/Xrays Labs Test 01/16/25 23:15 01/16/25 13:57 01/16/25 10:57 Range/Units Urine Opiates Screen Neg NEGATIVE Urine Fentanyl Screen Neg NEGATIVE Urine Barbiturates Screen Neg NEGATIVE Urine Phencyclidine Screen Neg NEGATIVE Urine Amphetamines Screen Neg NEGATIVE Urine Benzodiazepines Screen Neg NEGATIVE Urine Cocaine Screen Neg NEGATIVE Urine Cannabinoids Screen Neg NEGATIVE Troponin I High Sensitivity 9 </=54 ng/L White Blood Count 5.6 4.4-10.8 10^3/uL Red Blood Count 5.16 4.5-5.90 10^6/uL Hemoglobin 16.7 13.5-17.5 g/dL Hematocrit 48.2 41.0-53.0 % Mean Corpuscular Volume 93.3 80.0-100.0 fL Mean Corpuscular Hemoglobin 32.3 H 28.0-32.0 pg Mean Corpuscular Hemoglobin Concent 34.6 32.0-36.0 g/dL Red Cell Distribution Width 14.1 11.8-14.3 % Platelet Count 240 140-450 10^3/uL Mean Platelet Volume 7.3 6.9-10.8 fL Neutrophils (%) (Auto) 77.3 37.0-80.0 % Lymphocytes (%) (Auto) 14.0 10.0-50.0 % Monocytes (%) (Auto) 6.0 0.0-12.0 % Eosinophils (%) (Auto) 2.3 0.0-7.0 % Basophils (%) (Auto) 0.4 0.0-2.0 % Neutrophils # (Auto) 4.4 1.6-8.6 10 ^3/uL Lymphocytes # (Auto) 0.8 0.4-5.4 10 ^3/uL Monocytes # (Auto) 0.3 0-1.3 10 ^3/uL Eosinophils # (Auto) 0.1 0-0.8 10 ^3/uL Basophils # (Auto) 0 0-0.2 10 ^3/uL Nucleated Red Blood Cells 0.0 % Sodium Level 142 136-145 mmol/L Potassium Level 4.2 3.5-5.1 mmol/L Chloride Level 106 98-107 mmol/L Carbon Dioxide Level 25 20-31 mmol/L Anion Gap 11 5-15 Blood Urea Nitrogen 14 9-23 mg/dL Creatinine 1.25 0.700-1.30 mg/dL Glomerular Filtration Rate Calc 70 >90 mL/min BUN/Creatinine Ratio 11.2 10.0-20.0 Serum Glucose 102 74-106 mg/dL Calcium Level 9.8 8.7-10.4 mg/dL B-Type Natriuretic Peptide 27.48 0-100 pg/mL Assessment/Plan Plan Patient is 49 year old male who presented to hospital for 3 days of atypical chest pain. Does have some chest tenderness also. Has gone to 2 other different hospitals for same in past week. Cardiology is involved for Cardiac aspects of care. Denies any recent palpitation, DEGROOT, dizziness, cough or shortness of breath. He is known to our practice from outside and before. Does have history of Paroxysmal Atrial fibrillation, for which he takes Eliquis. Not in acute distress. No carotid bruit. No JVD. Mucosa is pink and wet. Lungs: Clear to auscultation. Cardiac: Regular, no thrill/gallop, Abdomen is soft, distended. There is no gross mass/hepatomegaly. Abdomen is distended. There is no rebound tenderness. Extremities reveal 1+ edema bilaterally. Dorsalis pedis is 2+ bilateral. Past medical history includes learning disability, hypertension, paroxysmal AFib (on Eliquis as outpatient), asthma, osteoarthritis, anxiety/depression, BPH, hyperlipidemia (on Repatha as outpatient), migraines, history of vitamin-D deficiency and magnesium deficiency, CKD, GERD, short episodes of SVT and mild mitral valve prolapse. Does have history of repeated abdominal pain / distension: for which follows with GI He is allergic to statins and is on Repatha as outpatient. Nuclear stress test of February 2023 did not reveal ischemia and reported ejection fraction of 77%. Echocardiogram of December 24, 2022 (performed in the office) revealed ejection fraction of 65-70%, mild MR/TR/PI and mild mitral valve prolapse Echocardiogram of October 13, 2023 had revealed ejection fraction of 64%, trace MR/TR/PI Echocardiogram of March 25, 2024 revealed ejection fraction of 65-70 percent, there was no wall motion abnormality. There was trace MR/TR/PI. Echocardiogram of 2024 (performed in [facility]) revealed: EF of 65%, no wall motion abnormalities and trace TR LHC of November 2024: No angiographic evidence for epicardial coronary artery disease (normal coronaries). LVEF of 65% with normal EDP. BNP: 27.48 Troponin (high sensitive): 4 - 7 - 9 UDS: non-revealing Chest xry revealed: IMPRESSION: No acute cardiopulmonary disease. EKG revealed: NSR, no specific ST T changes Telemetry has revealed sinus rhythm. Patient is a 49-year-old gentleman who presented with atypical chest pains. Serial high sensitive troponin has been negative. EKG has been nonrevealing. Has recent non-revealing LHC. ACS is not considered. Does have PAF and is on full anticoagulation. Can there be some component of pericarditis? Atypical chest pain Paroxysmal AFib, history of Hypertension Depression BPH SVT, history of Cardiac suggestion for management: Management in tele Follow-up electrolytes and kidney function tests and correct abnormalities. Keep potassium above 4 and magnesium above 2 On Eliquis Optimized medical therapy, Lifestyle and risk factor modifications Multaq: 400 mg PO BID You may add Colchicine: 0.6 mg daily Cardiac kovacs, can be followed as outpatient Further evaluation and management depends on the above and clinical course A total of 75 minutes was spent reviewing the patient record, examining the patient, making a diagnostic and therapeutic plan, discussing this plan with medical personnel, following up on diagnostic studies and following the patient for clinical stability excluding any and all procedures. At least 50% of this time was spent in direct, [id number] contact. Thank you for allowing me to participate in this patient's care. Further recommendations will depend on patient's clinical course. Please do not hesitate to contact me if you have any questions or concerns. This medical document was created using electronic medical record system with tsumobi computerized dictation system. Although this document has been carefully reviewed, there may still be some phonetic and typographical errors. These areas are purely typographical due to the imperfection of the software programs, and do not reflect any compromise in the patient's medical care. Plan discussed with: Patient, Other (nurse, primary team) APOORVA JON MD Jan 17, 2025 07:19
--- NOTE | 2025-01-17 08:59 | ECG ---
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
[2025-01-17] MEDS: CITALOPRAM HYDROBR 20 MG TAB PO SCH (09:46)
[2025-01-17] MEDS: COLCHICINE 0.6 MG CAP PO SCH (09:47)
[2025-01-17] MEDS ORDERED: ESCITALOPRAM OXALATE 5 MG PO SCH (10:00)
[2025-01-17] MEDS ORDERED: PATIENTS OWN MEDICATION (Amlodipine Besylate 1 TAB) PO SCH (10:00)
[2025-01-17] MEDS ORDERED: COLC1CAP PO ×2 (11:16→11:17)
--- NOTE | 2025-01-17 11:19 | DVHDS2 ---
Discharge Summary Date of Admission Jan 16, 2025 at 14:24 Date of Discharge: Jan 17, 2025 Labs/Diagnostic Data: Laboratory Results Test 01/16/25 23:15 01/16/25 13:57 01/16/25 10:57 Urine Opiates Screen Neg (NEGATIVE) Urine Fentanyl Screen Neg (NEGATIVE) Urine Barbiturates Screen Neg (NEGATIVE) Urine Phencyclidine Screen Neg (NEGATIVE) Urine Amphetamines Screen Neg (NEGATIVE) Urine Benzodiazepines Screen Neg (NEGATIVE) Urine Cocaine Screen Neg (NEGATIVE) Urine Cannabinoids Screen Neg (NEGATIVE) Troponin I High Sensitivity 9 ng/L (</=54) White Blood Count 5.6 10^3/uL (4.4-10.8) Red Blood Count 5.16 10^6/uL (4.5-5.90) Hemoglobin 16.7 g/dL (13.5-17.5) Hematocrit 48.2 % (41.0-53.0) Mean Corpuscular Volume 93.3 fL (80.0-100.0) Mean Corpuscular Hemoglobin 32.3 pg (28.0-32.0) Mean Corpuscular Hemoglobin Concent 34.6 g/dL (32.0-36.0) Red Cell Distribution Width 14.1 % (11.8-14.3) Platelet Count 240 10^3/uL (140-450) Mean Platelet Volume 7.3 fL (6.9-10.8) Neutrophils (%) (Auto) 77.3 % (37.0-80.0) Lymphocytes (%) (Auto) 14.0 % (10.0-50.0) Monocytes (%) (Auto) 6.0 % (0.0-12.0) Eosinophils (%) (Auto) 2.3 % (0.0-7.0) Basophils (%) (Auto) 0.4 % (0.0-2.0) Neutrophils # (Auto) 4.4 10 ^3/uL (1.6-8.6) Lymphocytes # (Auto) 0.8 10 ^3/uL (0.4-5.4) Monocytes # (Auto) 0.3 10 ^3/uL (0-1.3) Eosinophils # (Auto) 0.1 10 ^3/uL (0-0.8) Basophils # (Auto) 0 10 ^3/uL (0-0.2) Nucleated Red Blood Cells 0.0 % Sodium Level 142 mmol/L (136-145) Potassium Level 4.2 mmol/L (3.5-5.1) Chloride Level 106 mmol/L (98-107) Carbon Dioxide Level 25 mmol/L (20-31) Anion Gap 11 (5-15) Blood Urea Nitrogen 14 mg/dL (9-23) Creatinine 1.25 mg/dL (0.700-1.30) Glomerular Filtration Rate Calc 70 mL/min (>90) BUN/Creatinine Ratio 11.2 (10.0-20.0) Serum Glucose 102 mg/dL (74-106) Calcium Level 9.8 mg/dL (8.7-10.4) B-Type Natriuretic Peptide 27.48 pg/mL (0-100) Other Laboratory Tests 01/16/25 10:57 Brief Hx & Hospital Course: Patient was admitted on January 16, 2025, for atypical chest pain. He was recently evaluated at [facility], where he was diagnosed with costochondritis. The patient was seen by his date night sitter, Dr. Pizarro, who prescribed colchicine. Troponin levels were negative on three occasions, and no acute EKG findings were noted. The patient also complained of abdominal pain, which is chronic in nature. He has a history of multiple upper and lower endoscopies. I spoke with Dr. Carmela Troy, and CT imaging of the abdomen was performed with no acute findings. On exam, the abdomen was soft. The patient was advised to continue all home medications, follow up with GI as an outpatient, and follow up with his PCP in one week. The patient received proper medical treatment and medications. Vital signs, Imaging and Laboratory Work was monitored daily. All consults recommendations were followed as provided. There were no complaints or new complaints upon discharge, all questions and concerns were answered. Patient was advised to return to the ER or call 911 if any headaches, dizziness, shortness of breath, chest pain, bleeding, fevers, or worsening of medical condition. Patient/Family was counseled about treatment plan, medications, possible side effects, patient verbalized understanding. All questions were answered to the best of my ability. The patient symptoms improved and they are okay to be DC. Condition at Discharge: Stable Final Diagnosis/Problems List atypical chest pain Cad hx atrial fibrillation IBS Atypical chest pain Anxiety Depression Abdominal pain Anxiety and depression Discharge Disposition: Home Discharge Instruct/Medications Diet: Cardiac 2g Na,low cholest Activity: No Restrictions, As Tolerated Follow Up/Referral: pcp 1 week Medications: Continue home meds start Colchicine Scheduled Amlodipine Besylate (Amlodipine Besylate), 1 TAB PO DAILY, (Reported) Apixaban Base (Eliquis), 5 MG PO BID, (Reported) Beclomethasone Dipropionate (Qvar Redihaler), 2 PUFF IN BID, (Reported) Colchicine (Colchicine), 0.6 MG PO DAILY Dronedarone Hydrochloride (Multaq), 400 MG PO BID Escitalopram Oxalate (Lexapro), 5 MG PO DAILY, (Reported) Gabapentin (Gabapentin), 1 CAP PO TID Pantoprazole Sodium Sesquihydr (Pantoprazole Sodium), 1 TAB PO BID Scheduled PRN Albuterol Sulfate (Albuterol Sulfate Hfa), 1 PUFF INH Q4HPRN PRN for SHORTNESS OF BREATH, (Reported) Calcium Carbonate (Tums), 2-3 TAB PO QHSP PRN Dicyclomine Hcl (Dicyclomine Hcl), 10 MG PO BID PRN for ABD MUSCLE SPASM, (Reported) Nitroglycerin (Nitrostat), 0.4 MG SL Q12HP PRN Miscellaneous Medications Trazodone Hcl (Trazodone Hcl), 50 MG PO, (Reported) Discharge Statement: "Patient was advised to return to the ER or call 911 if any headaches, dizziness, shortness of breath, chest pain, abdominal pain, bleeding, fevers, or worsening of medical condition. Patient was counseled about treatment plan, medications, possible side effects, patientverbalized understanding. All questions were answered to the best of my ability. This discharge took greater then 30 minutes in planning, reviewing documentation, counseling the patient, and discussing with other team members." ASSESSMENT ASSESSMENT Assessment atypical chest pain Cad hx atrial fibrillation IBS Anxiety and depression MCKENNA ROTH NP Jan 17, 2025 11:19
--- NOTE | 2025-01-17 13:12 | DVH ---
COMPUTERIZED TOMOGRAPHY ABDOMEN AND PELVIS WITHOUT CONTRAST REASON FOR EXAM: abd pain COMPARISON: CT CT AB PEL WO CON-NO ORAL OR IV on DOS: 08/23/24, CT CT AB PEL WO CON-NO ORAL OR IV on D OS: 08/01/24, CT CT AB PEL WO CON-NO ORAL OR IV on DOS: 07/10/24, CT ABD/PEL on DOS: 05/16/24 TECHNIQUE: Spiral scans were acquired from the diaphragm to the symphysis pubis without intravenous c ontrast administration. 2-D coronal and sagittal reformatted images were provided. Radiation optimiza tion: All CT scans at this facility use at least one of these dose optimization techniques: Automated exposure control mA and/or kV adjustment per patient size (includes targeted exams where dose is mat ched to clinical indication) or iterative reconstruction. RADIATION DOSE: CTDI: 12.07 mGy DLP: 746.32 mGy-cm FINDINGS: The visualized lung bases are grossly clear. There is no pleural effusion. There is no pericardial e ffusion. The spleen is not enlarged. The liver is normal in size and contour. Evaluation of the abdominal orga ns is suboptimal in the absence of intravenous contrast. No calcified gallstone is identified. Unenh anced appearance of the pancreas is grossly unremarkable. The adrenal glands are normal. The kidneys are similar in size. There is no hydronephrosis of either kidney. The urinary bladder is grossly unre markable. The prostate and seminal vesicles are within normal limits. There is no abdominal aortic a neurysm. There is no pathologic lymphadenopathy by size criteria. No free fluid is identified in the abdomen or pelvis. The colonic stool burden is small. The appendix is normal. There is no pathologic distention of the small bowel to suggest obstruction. No acute osseous abnormality is identified. IMPRESSION: No acute finding in the abdomen or pelvis to explain the patient's abdominal pain.
[2025-01-17] MEDS ORDERED: DRONEDARONE HCL 400 MG TAB PO SCH (22:00)
--- NOTE | 2025-01-17 22:06 | DVHINCON2 ---
Date of service: Jan 17, 2025 (Late entryTime of visit 2:00 p.m.) Referring Physician Mckenna Roth Reason for Consultation Abdominal pain History of Present Illness 49 y/o M, with PMHx of anxiety, asthma, AFib, HTN, and HLD presents to the ED for CC of chest pain. Patient states, he has been experiencing substernal non- radiating chest pain sudden onset, Wednesday (01/12/25). Patient relays, being seen at [facility] for SS and being told symptoms were d/t costochondritis; endorses symptoms not ceasing. Patient reports additional associated symptoms of shortness of breath worsening with ambulation. Patient denies palpitations, numbness, weakness, faintness, nausea, or vomiting. No other symptoms or modifying factors are present at this time. Patient is known to me from previous consultations. Patient is requesting a Carafate refill as he believes that this helps his GI symptoms Family History: Cerebrovascular accident (CVA) G8 MOTHER ([place]) Diabetes mellitus G8 FATHER, G8 BROTHER, FHx: alcohol abuse G8 BROTHER, Allergies: Coded Allergies: Acetaminophen (Verified Allergy, Unknown, 03/02/23) Amoxicillin (Verified Allergy, Unknown, 03/02/23) Codeine (Verified Allergy, Unknown, 03/02/23) Hydrocodone (Verified Allergy, Unknown, 03/24/24) Ibuprofen (Verified Allergy, Unknown, 03/02/23) Penicillins (Verified Allergy, Unknown, 03/02/23) Statins (Verified Allergy, Unknown, 03/02/23) Tramadol (Verified Allergy, Unknown, 03/02/23) Uncoded Allergies: WALNUTS (Allergy, Unknown, 03/02/23) Home Meds Active Scripts Colchicine (Colchicine) 0.6 Mg Cap, 0.6 MG PO DAILY for 30 Days, #30 CAP Prov:MCKENNA ROTH OIL DERRICK OPERATOR 01/17/25 Dronedarone Hydrochloride (Multaq) 400 Mg Tab, 400 MG PO BID for 30 Days, #60 TAB Prov:MCKENNA ROTH NP 01/01/25 Calcium Carbonate (Tums) 500 Mg Chw, 2-3 TAB PO QHSP PRN, #90 TAB.CHEW prn abdominal pain Prov:YOSHI BONNER MD 09/05/24 Nitroglycerin (Nitrostat) 0.4 Mg Sub, 0.4 MG SL Q12HP PRN, #10 TAB Prov:APOORVA GILLESPIE PAC 08/25/24 Gabapentin (Gabapentin) 300 Mg Cap, 1 CAP PO TID, #90 CAP 5 Refills Prov:MCKENNA ROTH Tena OIL DERRICK OPERATOR 05/24/24 Pantoprazole Sodium Sesquihydr (Pantoprazole Sodium) 40 Mg Tab, 1 TAB PO BID for 30 Days, #60 TAB Prov:MCKENNA ROTH Tena OIL DERRICK OPERATOR 11/15/23 Reported Medications Trazodone Hcl (Trazodone Hcl) 100 Mg Tab, 50 MG PO, TAB 11/29/24 Escitalopram Oxalate (Lexapro) 5 Mg Tab, 5 MG PO DAILY for depresion, TAB 11/29/24 Amlodipine Besylate (Amlodipine Besylate) 10 Mg Tab, 1 TAB PO DAILY 11/13/24 Beclomethasone Dipropionate (Qvar Redihaler) 80 Mcg/Act Aer, 2 PUFF IN BID, AER 03/25/24 Albuterol Sulfate (Albuterol Sulfate Hfa) 108 Mcg/Act Aer, 1 PUFF INH Q4HPRN PRN for SHORTNESS OF BREATH 03/25/24 Apixaban Base (ELIQUIS) 5 Mg Tab, 5 MG PO BID, TAB 10/12/23 Dicyclomine Hcl (Dicyclomine Hcl) 20 Mg Tab, 10 MG PO BID PRN for ABD MUSCLE SPASM, MG 10/12/23 Current Medications Current Medications Medications (Trade) Dose Ordered Sig/Yesenia Route PRN Reason Start Time Stop Time Status Last Admin Patient Own Medication 1 tab DAILY PO 01/17/25 10:00 UNV Patient Own Medication 5 mg DAILY PO 01/17/25 10:00 UNV Amlodipine Besylate (Norvasc Tablet) 10 mg DAILY PO 01/17/25 10:00 01/17/25 16:48 DC 01/17/25 09:47 Citalopram Hydrobromide (CeleXA TABLET) 10 mg DAILY PO 01/17/25 10:00 01/17/25 16:48 DC 01/17/25 09:46 Colchicine (Colcrys) 0.6 mg DAILY PO 01/17/25 10:00 01/17/25 16:48 DC 01/17/25 09:47 Dronedarone (MulTAQ) 400 mg BID PO 01/17/25 22:00 01/17/25 16:48 DC Vital Signs Vital Signs Date Time Temp Pulse Resp B/P (MAP) Pulse Ox O2 Delivery O2 Flow Rate FiO2 01/17/25 15:30 98.9 80 18 97 01/17/25 12:29 141/87 (105) 01/17/25 08:00 Room Air* 0 21 Physical Exam General Appeara: Well developed Head Exam: Normal inspection Eye Exam: bilateral eye PERRL Nasal Exam: Normal inspection Mouth: Normal Inspection Pulmonary/Respiratory: Lungs clear Cardiovascular/Chest: Regular rate Abdominal Exam: Normal bowel sounds, Soft Neuro/Mental St: Alert, Oriented Appearance: Appropriate appearance Eye contact/ Speech: Cooperative Labs/Diagnostic Data Labs Test 01/16/25 23:15 01/16/25 13:57 01/16/25 10:57 Range/Units Urine Opiates Screen Neg NEGATIVE Urine Fentanyl Screen Neg NEGATIVE Urine Barbiturates Screen Neg NEGATIVE Urine Phencyclidine Screen Neg NEGATIVE Urine Amphetamines Screen Neg NEGATIVE Urine Benzodiazepines Screen Neg NEGATIVE Urine Cocaine Screen Neg NEGATIVE Urine Cannabinoids Screen Neg NEGATIVE Troponin I High Sensitivity 9 </=54 ng/L White Blood Count 5.6 4.4-10.8 10^3/uL Red Blood Count 5.16 4.5-5.90 10^6/uL Hemoglobin 16.7 13.5-17.5 g/dL Hematocrit 48.2 41.0-53.0 % Mean Corpuscular Volume 93.3 80.0-100.0 fL Mean Corpuscular Hemoglobin 32.3 H 28.0-32.0 pg Mean Corpuscular Hemoglobin Concent 34.6 32.0-36.0 g/dL Red Cell Distribution Width 14.1 11.8-14.3 % Platelet Count 240 140-450 10^3/uL Mean Platelet Volume 7.3 6.9-10.8 fL Neutrophils (%) (Auto) 77.3 37.0-80.0 % Lymphocytes (%) (Auto) 14.0 10.0-50.0 % Monocytes (%) (Auto) 6.0 0.0-12.0 % Eosinophils (%) (Auto) 2.3 0.0-7.0 % Basophils (%) (Auto) 0.4 0.0-2.0 % Neutrophils # (Auto) 4.4 1.6-8.6 10 ^3/uL Lymphocytes # (Auto) 0.8 0.4-5.4 10 ^3/uL Monocytes # (Auto) 0.3 0-1.3 10 ^3/uL Eosinophils # (Auto) 0.1 0-0.8 10 ^3/uL Basophils # (Auto) 0 0-0.2 10 ^3/uL Nucleated Red Blood Cells 0.0 % Sodium Level 142 136-145 mmol/L Potassium Level 4.2 3.5-5.1 mmol/L Chloride Level 106 98-107 mmol/L Carbon Dioxide Level 25 20-31 mmol/L Anion Gap 11 5-15 Blood Urea Nitrogen 14 9-23 mg/dL Creatinine 1.25 0.700-1.30 mg/dL Glomerular Filtration Rate Calc 70 >90 mL/min BUN/Creatinine Ratio 11.2 10.0-20.0 Serum Glucose 102 74-106 mg/dL Calcium Level 9.8 8.7-10.4 mg/dL B-Type Natriuretic Peptide 27.48 0-100 pg/mL Microbiology Date/Time Source Procedure Growth Status 01/17/25 01:05 Nose MRSA Screen - Final Complete CT SCAN ABD PELVIS IMPRESSION: No acute finding in the abdomen or pelvis to explain the patient's abdominal monica n. Problems(with codes): (1) Atrial fibrillation with RVR (2) Chest pain (3) Bradycardia (4) Gastritis (5) Chest pain, non-cardiac (6) Acute exacerbation of chronic abdominal pain (7) Diarrhea (8) Gastroenteritis (9) Chest pain of unknown etiology (10) Intractable abdominal pain Plan/Recommendation Plan Continue supportive care Protonix 40 mg p.o. daily Carafate 1 g p.o. q.h.s. Avoid aspirin NSAIDs Patient has had recent endoscopy and colonoscopy Outpatient follow up with me in 4-6 weeks or as needed once again thank you for allowing me to participate in the care of this patient Plan discussed with: Patient, Other (Jailyn Silvady and Mckenna Roth) MO MALCOLM MD Jan 17, 2025 22:06
== END 2025-01-17 16:35 | disposition home or self-care (01) | DRG 303 ==
LOC: ER 10:52 → OVERFLOW 14:24 → TELE-EAST 23:24
PROVIDERS: ADMIT Nurse Practitioner; ATTEND Nurse Practitioner
DX: I25.10 Atherosclerotic heart disease of native coronary artery without angina pectoris (principal); K58.9 Irritable bowel syndrome, unspecified; F41.9 Anxiety disorder, unspecified; F32.A Depression, unspecified; E78.5 Hyperlipidemia, unspecified; I12.9 Hypertensive chronic kidney disease with stage 1 through stage 4 chronic kidney disease, or unspecified chronic kidney disease; I48.0 Paroxysmal atrial fibrillation; J45.909 Unspecified asthma, uncomplicated; N40.0 Benign prostatic hyperplasia without lower urinary tract symptoms; G43.909 Migraine, unspecified, not intractable, without status migrainosus; K21.9 Gastro-esophageal reflux disease without esophagitis; N18.9 Chronic kidney disease, unspecified; Z79.01 Long term (current) use of anticoagulants; Z79.899 Other long term (current) drug therapy; Z82.3 Family history of stroke; Z83.3 Family history of diabetes mellitus; Z87.891 Personal history of nicotine dependence; Z88.0 Allergy status to penicillin; Z88.5 Allergy status to narcotic agent; Z88.6 Allergy status to analgesic agent; Z88.8 Allergy status to other drugs, medicaments and biological substances
CPT/HCPCS: 36415; 71046; 74176; 80048; 80307; 83880; 84484; 85025; 87081; 93005; G0378

== ENCOUNTER 2025-01-23 17:51 | Emergency (ER) | payer OTHER ==
[~2025-01-23] VITALS: Ht 175.3 cm; Wt 86.1 kg
[~2025-01-23 17:51] MED LIST changes: +COLC1CAP PO
--- NOTE | 2025-01-23 19:00 | ED.PDOC ---
History of Present Illness HPI Comments 49M presents to the ER w/ prior MHx of CAD and the c/c of CP. Pt reports on having sharp sternal CP which radiates to the substernal region. Pt states on waking up this morning w/ the CP and [place] [facility] [place] and did not give the pt anything for the pain, so he came to [facility]. Patient just admitted to this facility earlier this month for chest pain. He was discharged. After discharge he followed up with cardiology and was started on colchicine pericarditis. Denies any other symptoms at the time. REVIEW OF SYSTEMS: General: No fever, no chills, or fatigue HEENT: No sore throat, no earache, no congestion, no neck pain. Cardiac: + chest pain. + palpitations. Lungs: No shortness of breath, no cough. GI: No nausea, no vomiting, no diarrhea, no constipation, no abdominal pain : No dysuria, frequency, or urgency. No hematuria. Musculoskeletal: No joint pain , no joint swelling, no extremity edema. Skin: No rash, no itching. Neuro: No headache, no dizziness, no weakness PHYSICAL EXAM: General: Awake, alert and oriented. No acute distress. Skin: Skin in warm, dry and intact without rashes or lesions. HEENT: The head is normocephalic and atraumatic. Conjunctivae are clear without exudates or hemorrhage. Sclera is non-icteric. Neck: Normal range of motion. No JVD. Cardiac: Regular rate Respiratory: No signs of respiratory distress. No Stridor. Extremities: Upper and lower extremities are atraumatic in appearance without deformity. Neurological: The patient is awake, alert and oriented to person, place, and time with normal speech. Speech is clear. There is no facial asymmetry. Psychiatric: Appropriate mood and affect. Good judgement and insight. Chief Complaint: Chest Pain Time Seen by MD: 19:00 Primary Care Provider: AYLEEN Gabriel Notes: Nurses Notes, Medications, Allergies Allergies: Coded Allergies: Acetaminophen (Verified Allergy, Unknown, 03/02/23) Amoxicillin (Verified Allergy, Unknown, 03/02/23) Codeine (Verified Allergy, Unknown, 03/02/23) Hydrocodone (Verified Allergy, Unknown, 03/24/24) Ibuprofen (Verified Allergy, Unknown, 03/02/23) Penicillins (Verified Allergy, Unknown, 03/02/23) Statins (Verified Allergy, Unknown, 03/02/23) Tramadol (Verified Allergy, Unknown, 03/02/23) Uncoded Allergies: WALNUTS (Allergy, Unknown, 03/02/23) Home Meds Active Scripts Colchicine (Colchicine) 0.6 Mg Cap, 0.6 MG PO DAILY for 30 Days, #30 CAP Prov:MCKENNA ROTH ART EDUCATOR 01/17/25 Dronedarone Hydrochloride (Multaq) 400 Mg Tab, 400 MG PO BID for 30 Days, #60 TAB Prov:MCKENNA ROTH ART EDUCATOR 01/01/25 Calcium Carbonate (Tums) 500 Mg Chw, 2-3 TAB PO QHSP PRN, #90 TAB.CHEW prn abdominal pain Prov:YOSHI BONNER MD 09/05/24 Nitroglycerin (Nitrostat) 0.4 Mg Sub, 0.4 MG SL Q12HP PRN, #10 TAB Prov:APOORVA GLILESPIE PAC 08/25/24 Gabapentin (Gabapentin) 300 Mg Cap, 1 CAP PO TID, #90 CAP 5 Refills Prov:MCKENNA ROTH NP 05/24/24 Pantoprazole Sodium Sesquihydr (Pantoprazole Sodium) 40 Mg Tab, 1 TAB PO BID for 30 Days, #60 TAB Prov:MCKENNA ROTH ART EDUCATOR 11/15/23 Reported Medications Trazodone Hcl (Trazodone Hcl) 100 Mg Tab, 50 MG PO, TAB 11/29/24 Escitalopram Oxalate (Lexapro) 5 Mg Tab, 5 MG PO DAILY for depresion, TAB 11/29/24 Amlodipine Besylate (Amlodipine Besylate) 10 Mg Tab, 1 TAB PO DAILY 11/13/24 Beclomethasone Dipropionate (Qvar Redihaler) 80 Mcg/Act Aer, 2 PUFF IN BID, AER 03/25/24 Albuterol Sulfate (Albuterol Sulfate Hfa) 108 Mcg/Act Aer, 1 PUFF INH Q4HPRN PRN for SHORTNESS OF BREATH 03/25/24 Apixaban Base (ELIQUIS) 5 Mg Tab, 5 MG PO BID, TAB 10/12/23 Dicyclomine Hcl (Dicyclomine Hcl) 20 Mg Tab, 10 MG PO BID PRN for ABD MUSCLE SPASM, MG 10/12/23 Information Source: Patient Mode of Arrival: Ambulatory Severity: Moderate Timing: Hours Duration: Since onset, Hours Prehospital treatment: None Past Medical History PAST MEDICAL HISTORY: AFIB, Anxiety, Arthritis, Asthma, CAD, GERD, High Lipids, HTN Surgical History: Denies all surgeries Family History Family History: Reviewed,noncontributory to illness, Unknown, Family hx of heart tim, Family hx of stroke Social History Smoker: Non-Smoker Alcohol: Denies ETOH Use Drugs: Denies Drug Use Lives In: Home Was a procedure done? Was a procedure done?: No EKG EKG : Comments Sinus rhythm, no STEMI. Differential Dx Considerations may include: Differential diagnoses considered include acute ischemic coronary syndrome, aortic dissection, cardiac tamponade, mediastinitis, pulmonary embolus, pneumothorax, tension pneumothorax, esophageal rupture, coronary artery vasospasm, myocarditis, pericarditis, pneumonia, pulmonary edema, esophageal tear, pancreatitis, aortic stenosis, dilated cardiomyopathy, hypertrophic cardiomyopathy, mitral valve prolapse, malignancy, pleuritis, pneumomediastinum, primary pulmonary hypertension, cholecystitis, esophageal spasm, esophagus, gastritis, GERD, peptic ulcer disease, costochondritis, fibromyalgia, rib fracture, herpes zoster, radicular syndromes, thoracic outlet syndrome, somatization. X-Ray, Labs, Meds, VS Vital Signs Date Time Temp Pulse Resp B/P (MAP) Pulse Ox O2 Delivery O2 Flow Rate FiO2 01/23/25 20:14 56 16 96 Room Air* 0 21 01/23/25 20:13 98.6 57 18 141/73 (95) 96 98.6 01/23/25 18:59 52 01/23/25 17:55 99.0 67 18 136/73 95 99.0 01/23/25 17:55 58 Lab Test 01/23/25 19:22 01/23/25 18:29 Range/Units Troponin I High Sensitivity 3 L 3 L </=54 ng/L White Blood Count 4.6 4.4-10.8 10^3/uL Red Blood Count 4.99 4.5-5.90 10^6/uL Hemoglobin 16.3 13.5-17.5 g/dL Hematocrit 46.9 41.0-53.0 % Mean Corpuscular Volume 94.0 80.0-100.0 fL Mean Corpuscular Hemoglobin 32.7 H 28.0-32.0 pg Mean Corpuscular Hemoglobin Concent 34.7 32.0-36.0 g/dL Red Cell Distribution Width 14.5 H 11.8-14.3 % Platelet Count 226 140-450 10^3/uL Mean Platelet Volume 8.0 6.9-10.8 fL Neutrophils (%) (Auto) 68.0 37.0-80.0 % Lymphocytes (%) (Auto) 17.6 10.0-50.0 % Monocytes (%) (Auto) 10.6 0.0-12.0 % Eosinophils (%) (Auto) 3.0 0.0-7.0 % Basophils (%) (Auto) 0.8 0.0-2.0 % Neutrophils # (Auto) 3.1 1.6-8.6 10 ^3/uL Lymphocytes # (Auto) 0.8 0.4-5.4 10 ^3/uL Monocytes # (Auto) 0.5 0-1.3 10 ^3/uL Eosinophils # (Auto) 0.1 0-0.8 10 ^3/uL Basophils # (Auto) 0 0-0.2 10 ^3/uL Nucleated Red Blood Cells 0.4 % Sodium Level 145 136-145 mmol/L Potassium Level 4.2 3.5-5.1 mmol/L Chloride Level 109 H 98-107 mmol/L Carbon Dioxide Level 22 20-31 mmol/L Anion Gap 14 5-15 Blood Urea Nitrogen 24 H 9-23 mg/dL Creatinine 1.57 H 0.700-1.30 mg/dL Glomerular Filtration Rate Calc 53 >90 mL/min BUN/Creatinine Ratio 15.3 10.0-20.0 Serum Glucose 107 H 74-106 mg/dL Calcium Level 9.8 8.7-10.4 mg/dL Current Medications Medications (Trade) Dose Ordered Sig/Yesenia Route Start Time Stop Time Status Last Admin Lidocaine (Lidoderm 5% Topical Patch) 1 patch ONCE ONCE TOP 01/23/25 19:00 01/23/25 19:11 DC 01/23/25 20:18 PATIENT: LUIS MIGUEL JOSHI FACCT: [id number]: [id number] : 1975 LOC: ER ROOM / BED: / AGE / SEX: 49 / M ADM STATUS: REG ER SERVICE 912 ORDERING PHYSICIAN: LENORE BONNER MD PROCEDURE(s): CXR1 - CHEST XRAY 1 VIEW REASON: chest pain ORDER NUMBER(s): [id number], ACCESSION NUMBER(s): [id number] CHEST RADIOGRAPH Indication: chest pain Technique: Single frontal view of the chest was obtained Comparison: XR CHEST 1 VIEW on DOS: 01/23/25, XY CHEST PORTABLE on DOS: 12/29/24, XR CHEST 1 VIEW on DOS: 12/20/24 FINDINGS: Lines and Tubes: None Lungs: No focal consolidation. Pleura: No effusion. No pneumothorax. Cardiomediastinal contours: Unremarkable Bones: No acute osseous abnormality. IMPRESSION: 1. No acute cardiopulmonary disease. 2. No significant change 01/16/2025. Time of 1ST Reevaluation: 19:30 Reevaluation 1ST: Unchanged Patient Education/Counseling: Need For Follow Up Family Education/Counseling: No Family Present SEPSIS Sepsis Screen Date sepsis recognized/suspect: Jan 23, 2025 Time Sepsis recognized/suspect: 1754 Recent Procedure: No On Antibiotic Therapy: No Respiratory Rate >20: No Heart Rate >90: No Temp<36 C (96.8 F) or >38.3 C: No SBP <90 or MAP <65 mmHG: No New Acute Mental Status Change: No Is the patient on CPAP, BIPAP,: No Physician Orders Electrocardigram (01/23/25 18:03) Troponin-I Hs (01/23/25 21:03) Electrocardigram (01/23/25 19:03) Electrocardigram (01/23/25 21:03) Chest Xray 1 View (01/23/25 18:53) Vital Signs Date Time Temp Pulse Resp B/P (MAP) Pulse Ox O2 Delivery O2 Flow Rate FiO2 01/23/25 20:14 56 16 96 Room Air* 0 21 01/23/25 20:13 98.6 57 18 141/73 (95) 96 98.6 01/23/25 18:59 52 01/23/25 17:55 99.0 67 18 136/73 95 99.0 01/23/25 17:55 58 Laboratory Tests Test 01/23/25 18:29 White Blood Count 4.6 10^3/uL (4.4-10.8) Medications Medications Dose Ordered Sig/Yesenia Route Start Time Stop Time Status Last Admin Dose Admin Lidocaine 1 patch ONCE ONCE TOP 01/23/25 19:00 01/23/25 19:11 DC 01/23/25 20:18 Departure 1 Departure Time of Disposition: : Impression: Primary Impression: Chest pain Disposition: HOME / SELF CARE / HOMELESS Condition: Stable Additional Instructions: ED DISCHARGE INSTRUCTIONS Instructions: Please read all instructions provided in this packet carefully. Although you have been discharged from the Emergency Department, this does not mean that you have a "clean bill of health". No definitive diagnosis for your symptoms has been made today. It is possible that you are in the process of developing a serious illness. This is why you must return to the ED without fail if any new or worsening symptoms (especially if your symptoms include chest pain, trouble breathing, abdominal pain, fever, headache, confusion, trouble seeing, or trouble walking) It is also very important that you see a primary care provider (PCP) within the next 3-5 days to follow up. If you are unable to get an appointment, return to the ED for re-evaluation. You have been diagnosed with pericarditis by your assistant professor of biology. Continue colchicine as recommended by your assistant professor of biology for treatment of a pericarditis. Pericarditis: Care Instructions Pericarditis occurs when the membrane (pericardium) that surrounds the heart and its major blood vessels become inflamed. In most cases, the cause is not known. It can be caused by a viral, bacterial, or fungal infection, a heart attack, or a chest injury. It also can be caused by other health problems. Pericarditis causes sharp chest pain. This pain gets worse when you lie down or take a deep breath. The pain gets better if you lean forward or sit up. Pericarditis often heals on its own. It usually does not cause any more problems. Most people get better within a couple of weeks. Follow-up care is a ritter part of your treatment and safety. Be sure to make and go to all appointments, and call your doctor if you are having problems. It's also a good idea to know your test results and keep a list of the medicines you take. How can you care for yourself at home? Watch for the return of your symptoms. Sometimes pericarditis can come back after it has gone away. Be safe with medicines. Take your medicines exactly as prescribed. Call your doctor if you think you are having a problem with your medicine. Ask your doctor if you can take an [id number] pain medicine, such as acetaminophen (Tylenol), ibuprofen (Advil, Motrin), or naproxen (Aleve). Read and follow all instructions on the label. Do not take two or more pain medicines at the same time unless the doctor told you to. Many pain medicines have acetaminophen, which is Tylenol. Too much acetaminophen (Tylenol) can be harmful. Get plenty of rest until you feel better, especially if you have a fever. Avoid exercise and strenuous activity that has not been approved by your doctor. Ask your doctor when you can be active again. When should you call for help? Call 911 anytime you think you may need emergency care. For example, call if: You passed out (lost consciousness). You have severe trouble breathing. You have chest pain. Call your doctor now or seek immediate medical care if: You are dizzy or lightheaded, or you feel like you may faint. You have trouble breathing. You have a new or higher fever. Watch closely for changes in your health, and be sure to contact your doctor if: You do not get better as expected. Credits for Pericarditis: Care Instructions Current as of: November 03, 2023 Author: [employer] Staff Clinical Review Board All [employer] education is reviewed by a team that includes physicians, nurses, advanced practitioners, registered dieticians, and other healthcare professionals. Comments MDM: 49-year-old male with chronic, recurrent chest pain. EKG negative for signs of ischemia. High sensitivity troponin negative. CXR shows no acute process. Patient improved at time of discharge. Patient has not been hypoxic, in respiratory distress or dyspneic during the ED observation. Patient able to am bulate without difficulty. Presentation not suggestive of acute coronary syndrome, pulmonary embolism or aortic dissection. Patient felt stable for discharge to follow up with PCP promptly. Patient advised to return to the ED with any new, worsening or concerning symptoms or inability to follow up with PCP. I reviewed the following notes from the pt's past medical encounters: N/A The following tests were ordered, and results were reviewed by me: (See diagnostic results section) The following test were independently interpreted by me: N/A Additional information was gathered from interviewing the following independent historians: N/A I reviewed and agreed with the following test results read by other providers: N/A I discussed treatments and results with patient Decision regarding hospitalization or escalation of hospital level of care: Risks and benefits of admission for further treatment of patient's condition was considered however due to patient's stable condition patient will be discharged to follow up closely or return to care for worsening of condition or inability to follow up. Critical Care Note Critical Care Time?: No Stability Stability form required: No I personally scribed for LENORE BONNER MD ([email or web address]) on 01/23/25 at 19:00. Electronically submitted by Jessee Andrade ([email or web address]). LENORE BONNER MD Jan 23, 2025 19:00
--- NOTE | 2025-01-23 19:46 | DVH ---
CHEST RADIOGRAPH Indication: chest pain Technique: Single frontal view of the chest was obtained Comparison: XR CHEST 1 VIEW on DOS: 01/23/25, XY CHEST PORTABLE on DOS: 12/29/24, XR CHEST 1 VIEW on D OS: 12/20/24 FINDINGS: Lines and Tubes: None Lungs: No focal consolidation. Pleura: No effusion. No pneumothorax. Cardiomediastinal contours: Unremarkable Bones: No acute osseous abnormality. IMPRESSION: 1. No acute cardiopulmonary disease. 2. No significant change 01/16/2025.
[2025-01-23 19:52] LABS: Potassium 4.2 mmol/L (3.5-5.1); Sodium 145 mmol/L (136-145)
[2025-01-23 19:53] LABS: Carbon Dioxide 22 mmol/L (20-31)
[2025-01-23 19:54] LABS: Calcium 9.8 mg/dL (8.7-10.4)
[2025-01-23 19:55] LABS: Hematocrit 46.9 % (41.0-53.0); Hemoglobin 16.3 g/dL (13.5-17.5); Mean Corpuscular Hemoglobin 32.7 pg (28.0-32.0); Mean Corpuscular Volume 94.0 fL (80.0-100.0); Nucleated Red Blood Cells % 0.4 %
[2025-01-23 19:59] LABS: BUN/Creatinine Ratio 15.3 (10.0-20.0); Blood Urea Nitrogen 24 mg/dL (9-23); Glucose 107 mg/dL (74-106)
[2025-01-23 20:01] LABS: Anion Gap 14 (5-15); Chloride 109 mmol/L (98-107)
[2025-01-23 20:13] VITALS: BP 141/73; TEMP 98.6
[2025-01-23 20:14] VITALS: PULSE 56; RESP 16; O2SAT 96
[2025-01-23] MEDS: LIDOCAINE 5% TOPICAL PATCH TOP ONE (20:18)
--- NOTE | 2025-01-23 20:54 | ECG ---
[facility] Test Date: 2025-01-23 Test Time: 17:55:42 Pat Name: LUIS MIGUEL JOSHI Department: ED Room: Gender: M Technical Instructor Course Developer: : 1975 Requested By: GHASSAN MORGAN Order Number: [id number] Reading MD: Measurements Intervals Dobson Rate: 58 P: 53 PA: 141 QRS: 41 QRSD: 86 T: 28 QT: 406 QTc: 399 Interpretive Statements Sinus rhythm Baseline wander in lead(s) II,aVF Please click the below link to view image of tracing.
--- NOTE | 2025-01-23 20:54 | ECG ---
[facility] Test Date: 2025-01-23 Test Time: 18:59:44 Pat Name: LUIS MIGUEL JOSHI Department: ED Room: Gender: M Paste Thinner: sky : 1975 Requested By: GHASSAN MORGAN Order Number: [id number] Reading MD: Measurements Intervals Hugo Rate: 52 P: 54 SC: 142 QRS: 42 QRSD: 88 T: 17 QT: 420 QTc: 391 Interpretive Statements Sinus rhythm Baseline wander in lead(s) V2 Please click the below link to view image of tracing.
== END 2025-01-23 20:55 | disposition home or self-care (01) ==
LOC: ER 17:54
DX: R07.89 Other chest pain (principal); F41.9 Anxiety disorder, unspecified; I25.10 Atherosclerotic heart disease of native coronary artery without angina pectoris; I10 Essential (primary) hypertension; I31.9 Disease of pericardium, unspecified; I48.91 Unspecified atrial fibrillation; J45.909 Unspecified asthma, uncomplicated; M19.90 Unspecified osteoarthritis, unspecified site; Z79.01 Long term (current) use of anticoagulants; Z88.0 Allergy status to penicillin; Z88.5 Allergy status to narcotic agent; Z88.6 Allergy status to analgesic agent; Z88.8 Allergy status to other drugs, medicaments and biological substances
CPT/HCPCS: 36415; 71045; 80048; 84484; 85025; 93005

== ENCOUNTER 2025-02-09 10:00 | Emergency (ER) | payer OTHER ==
[~2025-02-09] VITALS: Ht 175.3 cm; Wt 85.1 kg
[2025-02-09] MEDS ORDERED: TRIA0.1O TOP (10:21)
[2025-02-09 10:26] VITALS: BP 134/61; PULSE 76; RESP 19; TEMP 98.9; O2SAT 100
--- NOTE | 2025-02-09 10:27 | ED.PDOC ---
History of Present Illness(SKN HPI Comments A 49 YEAR OLD MALE PRESENTS TO THE ED WITH COMPLAINT OF RASH OF RIGHT WRIST. PATIENT STATES HE HAS HAD A MILD RASH IN HIS RIGHT WRIST FOR THE PAST 2 WEEKS. PATIENT REPORTS HE WENT TO AN URGENT CARE RECENTLY AND WAS DIAGNOSED WITH SCABIES AND WAS PRESCRIBED MEDICATION FOR THIS, BUT NOTES THERE HAS BEEN NO IMPROVEMENT IN HIS SYMPTOMS. PATIENT DENIES FEVER, CHILLS, SHORTNESS OF BREATH, CHEST PAIN, ABDOMINAL PAIN, NAUSEA, VOMITING, HEADACHE, OR OTHER COMPLAINTS. NO OTHER SYMPTOMS OR MODIFYING FACTORS AT THIS TIME. PATIENT IS ALERT, ORIENTED X 4, AND HAS STEADY GAIT. Chief Complaint: Rash Time Seen by MD: 10:09 Primary Care Provider: AYLEEN History of Present Illness: Nurses Notes, Medications, Allergies Allergies: Coded Allergies: Acetaminophen (Verified Allergy, Unknown, 03/02/23) Amoxicillin (Verified Allergy, Unknown, 03/02/23) Codeine (Verified Allergy, Unknown, 03/02/23) Hydrocodone (Verified Allergy, Unknown, 03/24/24) Ibuprofen (Verified Allergy, Unknown, 03/02/23) Penicillins (Verified Allergy, Unknown, 03/02/23) Statins (Verified Allergy, Unknown, 03/02/23) Tramadol (Verified Allergy, Unknown, 03/02/23) Uncoded Allergies: WALNUTS (Allergy, Unknown, 03/02/23) Home Meds Active Scripts Triamcinolone Acetonide (Triamcinolone Acetonide) 0.1 % Oin, 1 APPLIC TOP BID, #30 GRAMS Prov:CHRISSIE SUH PA 02/09/25 Colchicine (Colchicine) 0.6 Mg Cap, 0.6 MG PO DAILY for 30 Days, #30 CAP Prov:MCKENNA ROTH RN VISITING 01/17/25 Dronedarone Hydrochloride (Multaq) 400 Mg Tab, 400 MG PO BID for 30 Days, #60 TAB Prov:MCKENNA ROTH RN VISITING 01/01/25 Calcium Carbonate (Tums) 500 Mg Chw, 2-3 TAB PO QHSP PRN, #90 TAB.CHEW prn abdominal pain Prov:YOSHI BONNER MD 09/05/24 Nitroglycerin (Nitrostat) 0.4 Mg Sub, 0.4 MG SL Q12HP PRN, #10 TAB Prov:APOORVA GILLESPIE PAC 08/25/24 Gabapentin (Gabapentin) 300 Mg Cap, 1 CAP PO TID, #90 CAP 5 Refills Prov:MCKENNA ROTH RN VISITING 05/24/24 Pantoprazole Sodium Sesquihydr (Pantoprazole Sodium) 40 Mg Tab, 1 TAB PO BID for 30 Days, #60 TAB Prov:MCKENNA ROTH RN VISITING 11/15/23 Reported Medications Trazodone Hcl (Trazodone Hcl) 100 Mg Tab, 50 MG PO, TAB 11/29/24 Escitalopram Oxalate (Lexapro) 5 Mg Tab, 5 MG PO DAILY for depresion, TAB 11/29/24 Amlodipine Besylate (Amlodipine Besylate) 10 Mg Tab, 1 TAB PO DAILY 11/13/24 Beclomethasone Dipropionate (Qvar Redihaler) 80 Mcg/Act Aer, 2 PUFF IN BID, AER 03/25/24 Albuterol Sulfate (Albuterol Sulfate Hfa) 108 Mcg/Act Aer, 1 PUFF INH Q4HPRN PRN for SHORTNESS OF BREATH 03/25/24 Apixaban Base (ELIQUIS) 5 Mg Tab, 5 MG PO BID, TAB 10/12/23 Dicyclomine Hcl (Dicyclomine Hcl) 20 Mg Tab, 10 MG PO BID PRN for ABD MUSCLE SPASM, MG 10/12/23 Information Source: Patient Mode of Arrival: Ambulatory Severity: Mild Timing: Days, Weeks Duration: Since onset, Days Prehospital treatment: None Location: Other (RIGHT WRIST) Mechanism: Spontaneous Onset Developed: Rash Occurence: Indoors Object: None Condition of Object: None Retained Foreign Body: No Wound Type: None Immunization Status of Animal: NA Tetanus: Unknown History of: None Associated Signs and Symptoms: Redness Past Medical History PAST MEDICAL HISTORY: AFIB, Anxiety, Arthritis, Asthma, CAD, GERD, High Lipids, HTN Surgical History: Denies all surgeries Family History Family History: Reviewed,noncontributory to illness, Family hx of heart tim, Family hx of stroke Social History Smoker: Non-Smoker Alcohol: Denies ETOH Use Drugs: Denies Drug Use Lives In: Home Constitutional: denies: chills, diaphoresis, fatigue, fever, malaise, sweats, weakness, others EENTM: denies: blurred vision, double vision, ear bleeding, ear discharge, ear drainage, ear pain, ear ringing, eye pain, eye redness, hearing loss, mouth pain, mouth swelling, nasal discharge, nose bleeding, nose congestion, nose pain, photophobia, tearing, throat pain, throat swelling, voice changes, others Respiratory: denies: cough, hemoptysis, orthopnea, SOB at rest, shortness of breath, SOB with excertion, stridor, wheezing, others Cardiovascular: denies: chest pain, dizzy spells, diaphoresis, Dyspnea on exertion, edema, irregular heart beat, left arm pain, lightheadedness, palpitations, PND, syncope, others Gastrointestinal: denies: abdomen distended, abdominal pain, blood streaked bowels, constipated, diarrhea, dysphagia, difficulty swallowing, hematemesis, melena, nausea, poor appetite, poor fluid intake, rectal bleeding, rectal pain, vomiting, others Genitourinary: denies: burning, dysuria, flank pain, frequency, hematuria, incontinence, penile discharge, penile sore, pain, testicle pain, testicle swelling, urgency, others Neurological: denies: dizziness, fainting, headache, left sided numbness, left sided weakness, numbness, paresthesia, pre-existing deficit, right sided numbne ss, right sided weakness, seizure, speech problems, tingling, tremors, weakness, others Musculoskeletal: denies: back pain, gout, joint pain, joint swelling, muscle pain, muscle stiffness, neck pain, others Integumetry: reports: rash (RASH OF RIGHT WRIST); denies: bruises, change in color, change in hair/nails, dryness, laceration, lesions, lumps, wounds, others Allergic/Immunocompromised: reports: Itching; denies: Difficulty Healing, Frequent Infections, Hives, others Hematologic/Lymphatic: denies: anemia, blood clots, easy bleeding, easy bruising, swollen glands, others Endocrine: denies: excessive hunger, excessive sweating, excessive thirst, excessive urination, flushing, intolerance to cold, intolerance to heat, unexplained weight gain, unexplained weight loss, others Psychiatric: denies: anxiety, bipolar disorder, depression, hopeless, panic disorder, schizophrenia, sleepless, suicidal, others All Other Systems: Reviewed and Negative Physical Exam General Appearance: No Apparent Distress, Normal HEENT: Normal ENT Inspection, PERRL/EOMI, Pharynx Normal, TMs Normal Neck: Full Range of Motion, Non-Tender, Normal, Normal Inspection Respiratory: Chest Non-Tender, Lungs Clear, No Accessory Muscle Use, No Respiratory Distress, Normal Breath Sounds Cardiovascular: No Edema, No JVD, No Murmur, No Gallop, Normal Peripheral Pulse s, Regular Rate/Rhythm Breast Exam: Deferred Gastrointestinal: No Organomegaly, Non Tender, No Pulsatile Mass, Normal Bowel Sounds, Soft Genitalia: Deferred Pelvic: Deferred Rectal: Deferred Extremities: No calf tenderness, Normal capillary refill, Normal inspection, Normal range of motion, Non-tender, No pedal edema Musculoskeletal : Apperance: Normal Neurologic: Alert, sap solution manager consultant II-XII nml as Tested, No Motor Deficits, Normal Affect, Normal Mood, No Sensory Deficits Cerebellar Function: Normal Reflexes: Normal Skin: Dry, Normal Color, Rash (ECZEMATOUS SKIN RASH ON RIGHT VOLAR WRIST, NO TENDERNESS AND SWELLING, NO OPEN WOUND SEEN. ), Warm Peripheral Pulses: 2+ carotid (R), 2+ carotid (L) Lymphatic: No Adenopathy Was a procedure done? Was a procedure done?: No Differential Diagnosis (INTG) Differential Diagnosis: N/A Differential Diagnosis: Atopic dermatitis, Drug Reaction, Scabies, Tinea, U rticaria Differential Diagnosis: N/A Abscess: N/A Differential Diagnosis: N/A X-Ray, Labs, Meds, VS Vital Signs Date Time Temp Pulse Resp B/P (MAP) Pulse Ox O2 Delivery O2 Flow Rate FiO2 02/09/25 10:26 98.9 76 19 134/61 (85) 100 98.9 02/09/25 10:02 98.0 79 20 116/82 96 98.0 X-Ray, Labs, Meds, VS Comment EXTERNAL MEDICAL RECORDS REVIEWED: [NONE] INDEPENDENT HISTORIANS: [NONE] SOCIAL DETERMINANTS OF HEALTH: [NONE] LABS ORDERED: NONE REVIEWED AND INTERPRETED RESULTS: NONE IMAGING ORDERED: NONE TREATMENTS ORDERED: NONE PROCEDURES PERFORMED: NONE CRITICAL CARE TIME: NONE I HAVE DISCUSSED THE PATIENT WITH THE ATTENDING PHYSICIAN DR. GENAO AND HE AGREES WITH THE PATIENT'S PLAN OF CARE AND DISPOSITION. BASED ON HISTORY OF PRESENT ILLNESS, AND PHYSICAL EXAM, PATIENT WILL BE DISCHARGED HOME. DISCUSSED PLAN FOR DISCHARGE HOME WITH RX [TRIAMCINOLONE CREAM]. MEDICATION WARNINGS GIVEN. SHARED DECISION MAKING: DISCUSSED WITH PATIENT THAT THEIR WORKUP WAS NORMAL. PATIENT INSTRUCTED TO FOLLOW UP WITH PRIMARY CARE PROVIDER IN 1-2 DAYS FOR RE- EVALUATION OF SYMPTOMS. PATIENT VERBALIZES UNDERSTANDING TO RETURN TO ED FOR NEW OR WORSENING SYMPTOMS OR IF FOLLOW UP WITH PCP CANNOT BE OBTAINED. PATIENT FEELS COMFORTABLE GOING HOME AT THIS TIME. ALL QUESTIONS ADDRESSED AT TIME OF DISCHARGE. Time of 1ST Reevaluation: 10:31 Reevaluation 1ST: Improved Patient Education/Counseling: Diagnosis, Treatment, Need For Follow Up Family Education/Counseling: Diagnosis, Treatment, Need For Follow Up Medical Screening: No EMC Exist At This Time SEPSIS Sepsis Screen Date sepsis recognized/suspect: Feb 09, 2025 Time Sepsis recognized/suspect: 1002 Recent Procedure: No On Antibiotic Therapy: No Respiratory Rate >20: No Heart Rate >90: No Temp<36 C (96.8 F) or >38.3 C: No SBP <90 or MAP <65 mmHG: No New Acute Mental Status Change: No Is the patient on CPAP, BIPAP,: No Vital Signs Date Time Temp Pulse Resp B/P (MAP) Pulse Ox O2 Delivery O2 Flow Rate FiO2 02/09/25 10:26 98.9 76 19 134/61 (85) 100 98.9 02/09/25 10:02 98.0 79 20 116/82 96 98.0 Departure 1 Departure Time of Disposition: 10:31 Impression: Primary Impression: Atopic dermatitis Qualified Codes: L20.9 - Atopic dermatitis, unspecified Disposition: 01 HOME / SELF CARE / HOMELESS Condition: Stable Additional Instructions: FOLLOW-UP WITH PCP IN 1 TO 2 DAYS. TAKE MEDICATIONS PRESCRIBED. RETURN TO ED FOR ANY NEW OR WORSENING SYMPTOMS. e-Prescriptions Triamcinolone Acetonide (Triamcinolone Acetonide) 0.1 % Oin 1 APPLIC TOP BID, #30 GRAMS Prov: CHRISSIE SUH 02/09/25 Discharged With: Self Critical Care Note Critical Care Time?: No Stability Stability form required: No I personally scribed for CHRISSIE SUH ([email or web address]) on 02/09/25 at 10:27. Electronically submitted by Pepe Cunningham ([email or web address]). CHRISSIE SUH Feb 09, 2025 10:27
== END 2025-02-09 10:31 | disposition home or self-care (01) ==
LOC: ER 10:00
DX: L20.9 Atopic dermatitis, unspecified (principal); Z88.6 Allergy status to analgesic agent; Z88.5 Allergy status to narcotic agent; Z88.0 Allergy status to penicillin; Z79.899 Other long term (current) drug therapy; Z88.8 Allergy status to other drugs, medicaments and biological substances

== ENCOUNTER 2025-02-19 11:31 | Inpatient (IN) | payer OTHER ==
[~2025-02-19] VITALS: Ht 175.3 cm; Wt 86.5 kg
[~2025-02-19 11:31] MED LIST changes: +TRIA0.1O TOP
--- NOTE | 2025-02-19 11:58 | ED.PDOC ---
HPI Comments 49 year old male with PMHx of a-fib, anxiety, arthritis, asthma, CAD, GERD, HLD, HTN presents to the ED with a chief complaint of chest pain onset today. Patient states he woke up experiencing LT sided, non-radiating, chest pain, took 2 Nitro tabs prior to ED arrival, with no improvement of symptoms. Patient has been seen in this ED multiple times for similar symptoms. Denies fever, chills, nausea, vomiting, diarrhea, headache, dizziness, shortness of breath, numbness/tingling. No other symptoms or modifying factors present at this time. Chief Complaint: Chest Pain Time Seen by MD: 11:50 Primary Care Provider: AYLEEN Reviewed Notes: Medications, Allergies Allergies: Coded Allergies: Acetaminophen (Verified Allergy, Unknown, 03/02/23) Amoxicillin (Verified Allergy, Unknown, 03/02/23) Codeine (Verified Allergy, Unknown, 03/02/23) Hydrocodone (Verified Allergy, Unknown, 03/24/24) Ibuprofen (Verified Allergy, Unknown, 03/02/23) Penicillins (Verified Allergy, Unknown, 03/02/23) Statins (Verified Allergy, Unknown, 03/02/23) Tramadol (Verified Allergy, Unknown, 03/02/23) Uncoded Allergies: WALNUTS (Allergy, Unknown, 03/02/23) Home Meds Active Scripts Triamcinolone Acetonide (Triamcinolone Acetonide) 0.1 % Oin, 1 APPLIC TOP BID, #30 GRAMS Prov:CHRISSIE SUH PA 02/09/25 Colchicine (Colchicine) 0.6 Mg Cap, 0.6 MG PO DAILY for 30 Days, #30 CAP Prov:MCKENNA ROTH PLANT PULLER 01/17/25 Dronedarone Hydrochloride (Multaq) 400 Mg Tab, 400 MG PO BID for 30 Days, #60 TAB Prov:MCKENNA ROTH PLANT PULLER 01/01/25 Calcium Carbonate (Tums) 500 Mg Chw, 2-3 TAB PO QHSP PRN, #90 TAB.CHEW prn abdominal pain Prov:YOSHI BONNER MD 09/05/24 Nitroglycerin (Nitrostat) 0.4 Mg Sub, 0.4 MG SL Q12HP PRN, #10 TAB Prov:APOORVA GILLESPIE PAC 5/23/25 Gabapentin (Gabapentin) 300 Mg Cap, 1 CAP PO TID, #90 CAP 5 Refills Prov:MCKENNA ROTH PLANT PULLER 05/24/24 Pantoprazole Sodium Sesquihydr (Pantoprazole Sodium) 40 Mg Tab, 1 TAB PO BID for 30 Days, #60 TAB Prov:MCKENNA ROTH PL[employer] PULLER 11/15/23 Reported Medications Trazodone Hcl (Trazodone Hcl) 100 Mg Tab, 50 MG PO, TAB 11/29/24 Escitalopram Oxalate (Lexapro) 5 Mg Tab, 5 MG PO DAILY for depresion, TAB 11/29/24 Amlodipine Besylate (Amlodipine Besylate) 10 Mg Tab, 1 TAB PO DAILY 11/13/24 Beclomethasone Dipropionate (Qvar Redihaler) 80 Mcg/Act Aer, 2 PUFF IN BID, AER 03/25/24 Albuterol Sulfate (Albuterol Sulfate Hfa) 108 Mcg/Act Aer, 1 PUFF INH Q4HPRN PRN for SHORTNESS OF BREATH 03/25/24 Apixaban Base (ELIQUIS) 5 Mg Tab, 5 MG PO BID, TAB 10/12/23 Dicyclomine Hcl (Dicyclomine Hcl) 20 Mg Tab, 10 MG PO BID PRN for ABD MUSCLE SPASM, MG 10/12/23 Information Source: Patient Mode of Arrival: Ambulatory Severity: Moderate Timing: Hours Duration: Since onset Prehospital treatment: None Location: Chest (L) Radiation: No Radiation Quality: Sharp Onset: At Rest Cardiac Risk Factors: Hyperlipidemia, HTN Modifying Factors: Nothing Past Medical History PAST MEDICAL HISTORY: AFIB, Anxiety, Arthritis, Asthma, CAD, GERD, High Lipids, HTN Surgical History: Denies all surgeries Family History Family History: Reviewed,noncontributory to illness, Family hx of heart tim, Family hx of stroke Social History Smoker: Non-Smoker Alcohol: Denies ETOH Use Drugs: Denies Drug Use Lives In: Home Constitutional: denies: chills, diaphoresis, fatigue, fever, malaise, sweats, weakness, others EENTM: denies: blurred vision, double vision, ear bleeding, ear discharge, ear drainage, ear pain, ear ringing, eye pain, eye redness, hearing loss, mouth pain, mouth swelling, nasal discharge, nose bleeding, nose congestion, nose pain, photophobia, tearing, throat pain, throat swelling, voice changes, others Respiratory: denies: cough, hemoptysis, orthopnea, SOB at rest, shortness of breath, SOB with excertion, stridor, wheezing, others Cardiovascular: reports: chest pain; denies: dizzy spells, diaphoresis, Dyspnea on exertion, edema, irregular heart beat, left arm pain, lightheadedness, p alpitations, PND, syncope, others Gastrointestinal: denies: abdomen distended, abdominal pain, blood streaked bowels, constipated, diarrhea, dysphagia, difficulty swallowing, hematemesis, melena, nausea, poor appetite, poor fluid intake, rectal bleeding, rectal pain, vomiting, others Genitourinary: denies: burning, dysuria, flank pain, frequency, hematuria, incontinence, penile discharge, penile sore, pain, testicle pain, testicle swelling, urgency, others Neurological: denies: dizziness, fainting, headache, left sided numbness, left sided weakness, numbness, paresthesia, pre-existing deficit, right sided numbness, right sided weakness, seizure, speech problems, tingling, tremors, weakness, others Musculoskeletal: denies: back pain, gout, joint pain, joint swelling, muscle pain, muscle stiffness, neck pain, others Integumetry: denies: bruises, change in color, change in hair/nails, dryness, laceration, lesions, lumps, rash, wounds, others Allergic/Immunocompromised: denies: Difficulty Healing, Frequent Infections, Hives, Itching, others Hematologic/Lymphatic: denies: anemia, blood clots, easy bleeding, easy b ruising, swollen glands, others Endocrine: denies: excessive hunger, excessive sweating, excessive thirst, excessive urination, flushing, intolerance to cold, intolerance to heat, unexplained weight gain, unexplained weight loss, others Psychiatric: denies: anxiety, bipolar disorder, depression, hopeless, panic disorder, schizophrenia, sleepless, suicidal, others All Other Systems: Reviewed and Negative Physical Exam General Appearance: Normal HEENT: Normal ENT Inspection, Pharynx Normal, TMs Normal Neck: Full Range of Motion, Non-Tender, Normal, Normal Inspection Respiratory: Chest Non-Tender, Lungs Clear, No Accessory Muscle Use, No Respiratory Distress, Normal Breath Sounds Cardiovascular: No Edema, No JVD, No Murmur, No Gallop, Normal Peripheral Pulses, Regular Rate/Rhythm Breast Exam: Deferred Gastrointestinal: No Organomegaly, Non Tender, No Pulsatile Mass, Normal Bowel Sounds, Soft Genitalia: Deferred Pelvic: Deferred Rectal: Deferred Extremities: No calf tenderness, Normal capillary refill, Normal inspection, Normal range of motion, Non-tender, No pedal edema Musculoskeletal : Apperance: Normal Neurologic: Alert, rocket engine mechanic II-XII nml as Tested, No Motor Deficits, Normal Affect, Normal Mood, No Sensory Deficits Cerebellar Function: Normal Reflexes: Normal Skin: Dry, Normal Color, Warm Lymphatic: No Adenopathy Was a procedure done? Was a procedure done?: No CP Differential Dx Differential Diagnosis: MAT, MA, PAC's Differential Diagnosis: HTN Encephalopathy, Medical NonCompliance Differential Diagnosis: Gastritis, Myocardial Infarction X-Ray, Labs, Meds, VS Vital Signs Date Time Temp Pulse Resp B/P (MAP) Pulse Ox O2 Delivery O2 Flow Rate FiO2 02/19/25 14:40 80 02/19/25 12:34 85 02/19/25 11:38 98.0 74 16 129/80 98 98.0 02/19/25 11:36 67 Lab Test 02/19/25 14:03 02/19/25 13:04 Range/Units Troponin I High Sensitivity 3 L < 3 L </=54 ng/L White Blood Count 5.4 4.4-10.8 10^3/uL Red Blood Count 5.04 4.5-5.90 10^6/uL Hemoglobin 16.4 13.5-17.5 g/dL Hematocrit 47.4 41.0-53.0 % Mean Corpuscular Volume 94.0 80.0-100.0 fL Mean Corpuscular Hemoglobin 32.6 H 28.0-32.0 pg Mean Corpuscular Hemoglobin Concent 34.7 32.0-36.0 g/dL Red Cell Distribution Width 15.2 H 11.8-14.3 % Platelet Count 255 140-450 10^3/uL Mean Platelet Volume 7.5 6.9-10.8 fL Neutrophils (%) (Auto) 68.0 37.0-80.0 % Lymphocytes (%) (Auto) 19.5 10.0-50.0 % Monocytes (%) (Auto) 8.6 0.0-12.0 % Eosinophils (%) (Auto) 3.4 0.0-7.0 % Basophils (%) (Auto) 0.5 0.0-2.0 % Neutrophils # (Auto) 3.7 1.6-8.6 10 ^3/uL Lymphocytes # (Auto) 1.0 0.4-5.4 10 ^3/uL Monocytes # (Auto) 0.5 0-1.3 10 ^3/uL Eosinophils # (Auto) 0.2 0-0.8 10 ^3/uL Basophils # (Auto) 0 0-0.2 10 ^3/uL Nucleated Red Blood Cells 0.1 % Sodium Level 140 136-145 mmol/L Potassium Level 4.1 3.5-5.1 mmol/L Chloride Level 104 98-107 mmol/L Carbon Dioxide Level 25 20-31 mmol/L Anion Gap 11 5-15 Blood Urea Nitrogen 18 9-23 mg/dL Creatinine 1.31 H 0.700-1.30 mg/dL Glomerular Filtration Rate Calc 66 >90 mL/min BUN/Creatinine Ratio 13.7 10.0-20.0 Serum Glucose 102 74-106 mg/dL Calcium Level 9.8 8.7-10.4 mg/dL Time of 1ST Reevaluation: 12:20 Reevaluation 1ST: Unchanged Patient Education/Counseling: Diagnosis, Treatment, Prognosis Family Education/Counseling: No Family Present SEPSIS Sepsis Screen Date sepsis recognized/suspect: Feb 19, 2025 Time Sepsis recognized/suspect: 1142 Recent Procedure: No On Antibiotic Therapy: No Respiratory Rate >20: No Heart Rate >90: No Temp<36 C (96.8 F) or >38.3 C: No SBP <90 or MAP <65 mmHG: No New Acute Mental Status Change: No Is the patient on CPAP, BIPAP,: No Physician Orders Chest Portable (02/19/25 12:41) Vital Signs Date Time Temp Pulse Resp B/P (MAP) Pulse Ox O2 Delivery O2 Flow Rate FiO2 02/19/25 14:40 80 02/19/25 12:34 85 02/19/25 11:38 98.0 74 16 129/80 98 98.0 02/19/25 11:36 67 Laboratory Tests Test 02/19/25 13:04 White Blood Count 5.4 10^3/uL (4.4-10.8) Departure 1 Departure Time of Disposition: 15:13 (Patient presented with chest pain that was concerning for possible STEMI, ACS, PE, Pneumonia, Muscle Strain, COPD, Dissection. Data: 1. I ordered and reviewed the result of at least 3 labs including a CBC, BMP, and Troponin. 2. I independently interpreted the following tests: EKG which shows sinus arrhythmia and Chest X-ray which shows benign ch est.Risk:This patient has a high risk of morbidity due to further diagnostic testing or treatment and may suffer from an acute cardiac or respiratory disorder. Workup reveals concern for ACS and patient should be admitted for further workup and possible expert consultation. ) Impression: Primary Impression: Acute chest pain Additional Impression: Shortness of breath Disposition: ADMITTED INPATIENT Admit to: Tele Condition: Guarded Critical Care Note Critical Care Time?: Yes Critical care comment: Acute chest pain Authorized and Performed by: Kirstin Lloyd MD Total critical care time: Approximately 37 minutes Due to a high probability of clinically significant, life threatening deterioration, the patient required my highest level of preparedness to intervene emergently and I personally spent this critical care time directly and personally managing the patient. This critical care time included obtaining a history; examining the patient; pulse oximetry; ordering and review of studies; arranging urgent treatment with development of a management plan; evaluation of patient's response to treatment; frequent reassessment; and, discussions with other providers. This critical care time was performed to assess and manage the high probability of imminent, life-threatening deterioration that could result in multi-organ failure. It was exclusive of separately billable procedures and treating other patients and teaching time. Please see my other sections and the rest of the note for further information on patient assessment and treatment. Stability Stability form required: No Heart Score Heart Score: Heart Score Response (Comments) Value History N/A 0 EKG N/A 0 Age N/A 0 Risk Factors N/A 0 Troponin N/A 0 Total 0 I personally scribed for KIRSTIN LLOYD MD ([email or web address]) on 02/19/25 at 11:58. Electronically submitted by Luann Rogers ([email or web address]). KIRSTIN LLOYD MD Feb 19, 2025 11:58
--- NOTE | 2025-02-19 12:35 | ECG ---
[facility] Test Date: 2025-02-19 Test Time: 12:34:30 Pat Name: LUIS MIGUEL JOSHI Department: ED Room: 0235T Gender: M Radiology Director: gp : 1975 Requested By: KIRSTIN CAMPOS Order Number: [id number] Reading MD: James Moses Measurements Intervals [place] Rate: 85 P: 67 VT: 117 QRS: 76 QRSD: 85 T: -38 QT: 368 QTc: 438 Interpretive Statements Sinus rhythm Ventricular premature complex Borderline short VT interval Repol abnrm suggests ischemia, inferior leads Baseline wander in lead(s) V1,V2,V3,V4,V6 Electronically Signed On 02-20-2025 17:58:18 PST by James Moses Please click the below link to view image of tracing.
--- NOTE | 2025-02-19 13:24 | DVH ---
CHEST RADIOGRAPH Indication: cp Technique: Single frontal view of the chest was obtained Comparison: XY CHEST XRAY 1 VIEW on DOS: 01/23/25, XR CHEST 1 VIEW on DOS: 01/23/25, XY CHEST PORTABLE on DOS: 12/29/24 FINDINGS: Lines and Tubes: None Lungs: No focal consolidation. Pleura: No effusion. No pneumothorax. Cardiomediastinal contours: Unremarkable Bones: No acute osseous abnormality. IMPRESSION: 1. No acute cardiopulmonary disease.
[2025-02-19 13:34] LABS: Hematocrit 47.4 % (41.0-53.0); Hemoglobin 16.4 g/dL (13.5-17.5); Mean Corpuscular Hemoglobin 32.6 pg (28.0-32.0); Mean Corpuscular Volume 94.0 fL (80.0-100.0); Nucleated Red Blood Cells % 0.1 %
[2025-02-19 13:40] LABS: Chloride 104 mmol/L (98-107); Potassium 4.1 mmol/L (3.5-5.1); Sodium 140 mmol/L (136-145)
[2025-02-19 13:41] LABS: Anion Gap 11 (5-15); Calcium 9.8 mg/dL (8.7-10.4); Carbon Dioxide 25 mmol/L (20-31)
[2025-02-19 13:46] LABS: Glucose 102 mg/dL (74-106)
[2025-02-19 13:47] LABS: BUN/Creatinine Ratio 13.7 (10.0-20.0); Blood Urea Nitrogen 18 mg/dL (9-23)
--- NOTE | 2025-02-19 14:41 | ECG ---
[facility] Test Date: 2025-02-19 Test Time: 14:40:01 Pat Name: LUIS MIGUEL JOSHI Department: ED Room: 0235T Gender: M Transport Technician: gp : 1975 Requested By: KIRSTIN CAMPOS Order Number: [id number] Reading MD: James Moses Measurements Intervals [place] Rate: 80 P: 60 [place]: 121 QRS: 70 QRSD: 86 T: -30 QT: 365 QTc: 421 Interpretive Statements Sinus rhythm Borderline repolarization abnormality Electronically Signed On 02-20-2025 17:58:38 PST by James Moses Please click the below link to view image of tracing.
--- NOTE | 2025-02-19 15:04 | ECG ---
[facility] Test Date: 2025-02-19 Test Time: 11:36:15 Pat Name: LUIS MIGUEL JOSHI Department: ED Room: 0235T Gender: M Bobbin Disker: DEMARCO : 1975 Requested By: KIRSTIN CAMPOS Order Number: [id number] Reading MD: James Moses Measurements Intervals [place] Rate: 67 P: 50 [place]: 135 QRS: 88 QRSD: 87 T: -20 QT: 398 QTc: 420 Interpretive Statements Sinus rhythm Nonspecific repol abnormality, inferior leads Electronically Signed On 02-20-2025 17:58:06 PST by James Moses Please click the below link to view image of tracing.
[2025-02-19] MEDS ORDERED: NITROGLYCERIN 0.4 MG SL TAB SL PRN (17:00)
[2025-02-19] MEDS ORDERED: DOCUSATE SOD 100 MG CAP PO PRN (17:00)
[2025-02-19] MEDS ORDERED: TEMAZEPAM 15 MG CAP PO PRN (17:00)
[2025-02-19] MEDS ORDERED: ONDANSETRON HCL 4 MG/2 ML VIAL IV PRN (17:00)
--- NOTE | 2025-02-19 17:03 | DVHHP2 ---
Admitting Diagnosis: Chest pain History of Present Illness 49 year old male is complaining of left sided chest pain that started today when he woke up. Patient states he did take two Nitros prior to arriving to the emergency department. While in the emergency department the patient was evaluated by the provider. Patient will be admitted for further evaluation and treatment. I discussed admission with the patient/family and is in agreement to treatment plan. Patient Family History: Cerebrovascular accident (CVA) G8 MOTHER (TREMORS) Diabetes mellitus G8 FATHER, G8 BROTHER, FHx: alcohol abuse G8 BROTHER, Allergies: Coded Allergies: Acetaminophen (Verified Allergy, Unknown, 03/02/23) Amoxicillin (Verified Allergy, Unknown, 03/02/23) Codeine (Verified Allergy, Unknown, 03/02/23) Hydrocodone (Verified Allergy, Unknown, 03/24/24) Ibuprofen (Verified Allergy, Unknown, 03/02/23) Penicillins (Verified Allergy, Unknown, 03/02/23) Statins (Verified Allergy, Unknown, 03/02/23) Tramadol (Verified Allergy, Unknown, 03/02/23) Uncoded Allergies: WALNUTS (Allergy, Unknown, 03/02/23) Home Meds Active Scripts Triamcinolone Acetonide (Triamcinolone Acetonide) 0.1 % Oin, 1 APPLIC TOP BID, #30 GRAMS Prov:CHRISSIE SUH 02/09/25 Colchicine (Colchicine) 0.6 Mg Cap, 0.6 MG PO DAILY for 30 Days, #30 CAP Prov:MCKENNA ROTH NAVAL ENGINEER 01/17/25 Dronedarone Hydrochloride (Multaq) 400 Mg Tab, 400 MG PO BID for 30 Days, #60 TAB Prov:MCKENNA ROTH NP 01/01/25 Calcium Carbonate (Tums) 500 Mg Chw, 2-3 TAB PO QHSP PRN, #90 TAB.CHEW prn abdominal pain Prov:YOSHI BONNER MD 09/05/24 Nitroglycerin (Nitrostat) 0.4 Mg Sub, 0.4 MG SL Q12HP PRN, #10 TAB Prov:APOORVA GILLESPIE PAC 08/25/24 Gabapentin (Gabapentin) 300 Mg Cap, 1 CAP PO TID, #90 CAP 5 Refills Prov:MCKENNA ROTH NP 05/24/24 Pantoprazole Sodium Sesquihydr (Pantoprazole Sodium) 40 Mg Tab, 1 TAB PO BID for 30 Days, #60 TAB Prov:MCKENNA ROTH [employer] ENGINEER 11/15/23 Reported Medications Trazodone Hcl (Trazodone Hcl) 100 Mg Tab, 50 MG PO, TAB 11/29/24 Escitalopram Oxalate (Lexapro) 5 Mg Tab, 5 MG PO DAILY for depresion, TAB 11/29/24 Amlodipine Besylate (Amlodipine Besylate) 10 Mg Tab, 1 TAB PO DAILY 11/13/24 Beclomethasone Dipropionate (Qvar Redihaler) 80 Mcg/Act Aer, 2 PUFF IN BID, AER 03/25/24 Albuterol Sulfate (Albuterol Sulfate Hfa) 108 Mcg/Act Aer, 1 PUFF INH Q4HPRN PRN for SHORTNESS OF BREATH 03/25/24 Apixaban Base (ELIQUIS) 5 Mg Tab, 5 MG PO BID, TAB 10/12/23 Dicyclomine Hcl (Dicyclomine Hcl) 20 Mg Tab, 10 MG PO BID PRN for ABD MUSCLE SPASM, MG 10/12/23 Current Medications Current Medications Medications (Trade) Dose Ordered Sig/Yesenia Route PRN Reason Start Time Stop Time Status Last Admin Temazepam (Restoril) 15 mg QHSP PRN PO FOR INSOMNIA 02/19/25 17:00 Ondansetron HCl (Zofran) 4 mg Q4HP PRN IV NAUSEA / VOMITING 02/19/25 17:00 Docusate Sodium (Colace Capsule) 100 mg BIDPRN PRN PO FOR CONSTIPATION 02/19/25 17:00 Nitroglycerin (Ntrostat Sublingual) 0.4 mg Q5MIN PRN SL FOR CHEST PAIN 02/19/25 17:00 02/19/25 17:14 DC Nitroglycerin (Ntrostat Sublingual) 0.4 mg Q5MINP PRN SL FOR CHEST PAIN 02/19/25 17:00 Apixaban (Eliquis) 5 mg BID PO 02/19/25 22:00 Calcium Carbonate (Tums) 1,000 mg QHSP PRN PO FOR STOMACH DISTRESS 02/19/25 17:15 02/19/25 18:14 Gabapentin (Neurontin Capsule) 300 mg TID PO 02/19/25 22:00 Amlodipine Besylate (Norvasc Tablet) 10 mg DAILY PO 02/20/25 10:00 Patient Own Medication 0.6 mg DAILY PO 02/20/25 10:00 UNV Patient Own Medication 400 mg BID PO 02/19/25 22:00 UNV Patient Own Medication 5 mg DAILY PO 02/20/25 10:00 UNV Review of Systems Chest pain Vital Signs Vital Signs Date Time Temp Pulse Resp B/P (MAP) Pulse Ox O2 Delivery O2 Flow Rate FiO2 02/19/25 18:51 98.5 88 18 164/82 (109) 100 98.5 Physical Exam General Appearance: alert, no distress HEENT: EOMI, PERRLA, normal external inspect of ears, no icterus, no nasal drainage Neck: no carotid bruit, no jugular venous distention (JVD), no lymphadenopathy Chest: normal thorax Respiratory: clear to auscultation, normal air movement Cardiovascular: regular rate and rhythm, no diastolic murmur, no jugular venous distention (JVD), no rub, no systolic murmur Abdominal: soft, no hepatomegaly, no mass, no splenomegaly, no tenderness Musculoskeletal: no joint tenderness, no swelling Extremities: normal pulses, no calf tenderness, no clubbing, no cyanosis, no edema Skin: no bruising, no jaundice, no rash Neurological: alert, No focal deficit SEPSIS Sepsis Screen Date sepsis recognized/suspect: Feb 19, 2025 Time Sepsis recognized/suspect: 1142 Recent Procedure: No On Antibiotic Therapy: No Respiratory Rate >20: No Heart Rate >90: No Temp<36 C (96.8 F) or >38.3 C: No SBP <90 or MAP <65 mmHG: No New Acute Mental Status Change: No Is the patient on CPAP, BIPAP,: No Physician Orders Chest Portable (02/19/25 12:41) Admit (02/19/25 16:55) Code Status (02/19/25 16:55) Oxygen Per Hour (02/19/25 16:55) Temazepam (Restoril) (02/19/25 17:00) Ondansetron Hcl (Zofran) (02/19/25 17:00) Docusate Sodium Capsule (Colace Capsule) (02/19/25 17:00) Complete Blood Count (02/20/25 04:00) Comprehensive Metabolic Panel (02/20/25 04:00) Cardiac Diet-2gna,Lofat,Lochol (02/19/25 Dinner) Condition: Stable (02/19/25 16:55) Sequential Compression Device (02/19/25 ) *Consult Dr. Apoorva Pizarro (02/19/25 16:55) Nitroglycerin Sublingual (Ntrostat Subli (02/19/25 17:00) Stat Ekg For Chest Pain (02/19/25 16:55) Notify Md Of Changes From Base (02/19/25 16:55) Acetylene Operator For 24 Hours (02/19/25 16:55) Emergency Dysrhythmia Protocol (02/19/25 16:55) Rhythm Strips Once Every Shift (02/19/25 16:55) Oxygen By Nasal Cannula (02/19/25 16:55) Echo 2d Mode Cardiac Dop (02/19/25 17:05) Apixaban (Eliquis) (02/19/25 22:00) Calcium Carbonate (Tums) (02/19/25 17:15) Gabapentin Capsule (Neurontin Capsule) (02/19/25 22:00) Amlodipine Tablet (Norvasc Tablet) (02/20/25 10:00) (Nf) Colchicine (02/20/25 10:00) (Nf) Dronedarone Hydrochloride (Multaq) (02/19/25 22:00) (Nf) Escitalopram Oxalate (Lexapro) (02/20/25 10:00) Vital Signs Date Time Temp Pulse Resp B/P (MAP) Pulse Ox O2 Delivery O2 Flow Rate FiO2 02/19/25 18:51 98.5 88 18 164/82 (109) 100 98.5 02/19/25 16:20 97.9 98 18 148/64 (92) 99 97.9 02/19/25 14:40 80 02/19/25 12:34 85 02/19/25 11:38 98.0 74 16 129/80 98 98.0 02/19/25 11:36 67 Laboratory Tests Test 02/19/25 13:04 White Blood Count 5.4 10^3/uL (4.4-10.8) Medications Medications Dose Ordered Sig/Yesenia Route Start Time Stop Time Status Last Admin Dose Admin Calcium Carbonate 1,000 mg QHSP PRN PO 02/19/25 17:15 02/19/25 18:14 Results Labs Test 02/19/25 14:03 02/19/25 13:04 Range/Units Troponin I High Sensitivity 3 L </=54 ng/L White Blood Count 5.4 4.4-10.8 10^3/uL Red Blood Count 5.04 4.5-5.90 10^6/uL Hemoglobin 16.4 13.5-17.5 g/dL Hematocrit 47.4 41.0-53.0 % Mean Corpuscular Volume 94.0 80.0-100.0 fL Mean Corpuscular Hemoglobin 32.6 H 28.0-32.0 pg Mean Corpuscular Hemoglobin Concent 34.7 32.0-36.0 g/dL Red Cell Distribution Width 15.2 H 11.8-14.3 % Platelet Count 255 140-450 10^3/uL Mean Platelet Volume 7.5 6.9-10.8 fL Neutrophils (%) (Auto) 68.0 37.0-80.0 % Lymphocytes (%) (Auto) 19.5 10.0-50.0 % Monocytes (%) (Auto) 8.6 0.0-12.0 % Eosinophils (%) (Auto) 3.4 0.0-7.0 % Basophils (%) (Auto) 0.5 0.0-2.0 % Neutrophils # (Auto) 3.7 1.6-8.6 10 ^3/uL Lymphocytes # (Auto) 1.0 0.4-5.4 10 ^3/uL Monocytes # (Auto) 0.5 0-1.3 10 ^3/uL Eosinophils # (Auto) 0.2 0-0.8 10 ^3/uL Basophils # (Auto) 0 0-0.2 10 ^3/uL Nucleated Red Blood Cells 0.1 % Sodium Level 140 136-145 mmol/L Potassium Level 4.1 3.5-5.1 mmol/L Chloride Level 104 98-107 mmol/L Carbon Dioxide Level 25 20-31 mmol/L Anion Gap 11 5-15 Blood Urea Nitrogen 18 9-23 mg/dL Creatinine 1.31 H 0.700-1.30 mg/dL Glomerular Filtration Rate Calc 66 >90 mL/min BUN/Creatinine Ratio 13.7 10.0-20.0 Serum Glucose 102 74-106 mg/dL Calcium Level 9.8 8.7-10.4 mg/dL B-Type Natriuretic Peptide 13.91 0-100 pg/mL Primary Diagnosis - Atypical chest pain Cardiology consult, trend troponin, monitor EKG, medication - GERD Medication, monitoring - Chronic abdominal pain Medication, monitoring - CAD Medication, monitoring - Anxiety, depression Medication, monitoring - History of atrial fibrillation Medication, monitoring Plan discussed with: Patient, Other MCKENNA ROTH NP Feb 19, 2025 17:03
[2025-02-19] MEDS: CALCIUM CARB 500 MG CHEW TAB PO PRN (18:14)
[2025-02-19] MEDS: GABAPENTIN 300 MG CAP PO SCH (22:00)
[2025-02-19 23:24] VITALS: BP 125/90; PULSE 85; RESP 18; TEMP 98.6; O2SAT 95
[2025-02-19] MEDS: NITROGLYCERIN 0.4 MG SL TAB SL PRN (23:32)
[2025-02-19] MEDS ORDERED: LABE200T10 PO (23:36)
[2025-02-19] MEDS ORDERED: PRAV20TA3 PO (23:36)
[2025-02-19] MEDS ORDERED: POLY335015 PO (23:36)
[2025-02-19] MEDS ORDERED: DOCU-94 PO (23:36)
[2025-02-19] MEDS ORDERED: ONDA-155 PO (23:36)
[2025-02-19] MEDS ORDERED: HYDR10SY18 PO (23:36)
[2025-02-19] MEDS ORDERED: DICY20TA PO (23:36)
[2025-02-19] MEDS ORDERED: SUCR1TAB31 OR (23:36)
[2025-02-19] MEDS ORDERED: EVOL140I2 SC (23:36)
[2025-02-19] MEDS ORDERED: CHOL20007 PO (23:36)
[2025-02-19] MEDS ORDERED: [UNRECOGNIZED DRUG - CODE] XX (23:36)
[2025-02-20] VITALS (8 sets, daily range): BP systolic 106–139; BP diastolic 61–92; PULSE 68–84; RESP 17–80; TEMP 98.1–98.2; O2SAT 94–97
[2025-02-20] MEDS: APIXABAN 5 MG TAB PO SCH (00:39)
[2025-02-20 05:33] LABS: Hematocrit 41.1 % (41.0-53.0); Hemoglobin 14.5 g/dL (13.5-17.5); Mean Corpuscular Hemoglobin 33.0 pg (28.0-32.0); Mean Corpuscular Volume 93.6 fL (80.0-100.0); Nucleated Red Blood Cells % 0.2 %
[2025-02-20 05:50] LABS: Albumin 4.2 g/dL (3.2-4.8); Alkaline Phosphatase 106 U/L (46-116); Anion Gap 8 (5-15); BUN/Creatinine Ratio 14.1 (10.0-20.0); Blood Urea Nitrogen 18 mg/dL (9-23); Calcium 9.5 mg/dL (8.7-10.4); Carbon Dioxide 30 mmol/L (20-31); Chloride 106 mmol/L (98-107); Glucose 95 mg/dL (74-106); Potassium 4.1 mmol/L (3.5-5.1); Sodium 144 mmol/L (136-145); Total Protein 6.8 g/dL (5.7-8.2)
[2025-02-20 05:51] LABS: Bilirubin, Total 0.7 mg/dL (0.2-1.0)
[2025-02-20 06:13] LABS: Alanine Aminotransferase 81 U/L (7-40)
--- NOTE | 2025-02-20 08:05 | ECG ---
[facility] Test Date: 2025-02-19 Test Time: 23:30:48 Pat Name: LUIS MIGUEL JOSHI Department: Respiratoy Room: 0235T [id number] Gender: M Gospel Singer: CHAUNCEY : 1975 Requested By: MCKENNA ROTH Order Number: [id number] Reading MD: James Moses Measurements Intervals Smock Rate: 82 P: 49 CO: 166 QRS: -20 QRSD: 86 T: 47 QT: 365 QTc: 427 Interpretive Statements Sinus rhythm Probable left atrial enlargement Borderline left axis deviation Abnormal R-wave progression, late transition Electronically Signed On 02-20-2025 17:20:52 PST by James Moses Please click the below link to view image of tracing.
[2025-02-20] MEDS: COLCHICINE 0.6 MG CAP PO SCH (09:26)
[2025-02-20] MEDS: DRONEDARONE HCL 400 MG TAB PO SCH (09:26)
[2025-02-20] MEDS: CITALOPRAM HYDROBR 20 MG TAB PO SCH (09:26)
--- NOTE | 2025-02-20 10:55 | DVHINCON2 ---
Date of service: Feb 20, 2025 History of Present Illness HPI Patient is a 49-year-old gentleman who presented to the hospital with atypical chest discomfort. Cardiology involved for cardiac aspects of care patient is known to our practice from before and outside. Home Meds Active Scripts Triamcinolone Acetonide (Triamcinolone Acetonide) 0.1 % Oin, 1 APPLIC TOP BID, #30 GRAMS Prov:CHRISSIE SUH PA 02/09/25 Colchicine (Colchicine) 0.6 Mg Cap, 0.6 MG PO DAILY for 30 Days, #30 CAP Prov:MCKENNA ROTH FR[employer] HARVESTER MACHINE OPERATOR 01/17/25 Dronedarone Hydrochloride (Multaq) 400 Mg Tab, 400 MG PO BID for 30 Days, #60 TAB Prov:MCEKNNA ROTH NP 01/01/25 Calcium Carbonate (Tums) 500 Mg Chw, 2-3 TAB PO QHSP PRN, #90 TAB.CHEW prn abdominal pain Prov:YOSHI BONNER MD 09/05/24 Nitroglycerin (Nitrostat) 0.4 Mg Sub, 0.4 MG SL Q12HP PRN, #10 TAB Prov:APOORVA GILLESPIE PAC 08/25/24 Gabapentin (Gabapentin) 300 Mg Cap, 1 CAP PO TID, #90 CAP 5 Refills Prov:MCKENNA ROTH NP 05/24/24 Pantoprazole Sodium Sesquihydr (Pantoprazole Sodium) 40 Mg Tab, 1 TAB PO BID for 30 Days, #60 TAB Prov:MCKENNA ROTH FR[employer] HARVESTER MACHINE OPERATOR 11/15/23 Reported Medications Dicyclomine Hcl (Dicyclomine Hcl) 20 Mg Tab, 20 MG PO, TAB 02/19/25 Cholecalciferol (VITAMIN D3) 2,000 Unit Tab, 1 TAB PO DAILY, #30 TAB 5 Refills 02/19/25 Evolocumab (Repatha Sureclick) 140 Mg/Ml Inj, 140 MG SC, INJ 02/19/25 Docusate Sodium (Colace) 100 Mg Cap, 1 CAP PO BID, #30 CAP 02/19/25 Polyethylene Glycol 3350 (Miralax) 17 Gm Pow, 17 GM PO, POW 02/19/25 Prilocaine HCl (Prilocaine HCl) 1 Pow Pow, 1 POW XX, POW 02/19/25 Hydroxyzine Hcl (Hydroxyzine Hcl) 10 Mg/5 Ml Syp, 10 MG PO, SYP 02/19/25 Ondansetron HCl (Ondansetron) 4 Mg Tab, 4 MG PO, TAB 02/19/25 Sucralfate (CARAFATE) 1 Gm Tab, 1 GM OR, TAB 02/19/25 Labetalol HCl (Labetalol HCl) 200 Mg Tab, 200 MG PO, TAB 02/19/25 Pravastatin Sodium (PRAVACHOL TABLET) 20 Mg Tb, 1 TAB PO DAILY, #30 TAB 5 Refills 02/19/25 Trazodone Hcl (Trazodone Hcl) 100 Mg Tab, 50 MG PO, TAB 11/29/24 Escitalopram Oxalate (Lexapro) 5 Mg Tab, 5 MG PO DAILY for depresion, TAB 11/29/24 Amlodipine Besylate (Amlodipine Besylate) 10 Mg Tab, 1 TAB PO DAILY 11/13/24 Beclomethasone Dipropionate (Qvar Redihaler) 80 Mcg/Act Aer, 2 PUFF IN BID, AER 03/25/24 Albuterol Sulfate (Albuterol Sulfate Hfa) 108 Mcg/Act Aer, 1 PUFF INH Q4HPRN PRN for SHORTNESS OF BREATH 03/25/24 Apixaban Base (ELIQUIS) 5 Mg Tab, 5 MG PO BID, TAB 10/12/23 Dicyclomine Hcl (Dicyclomine Hcl) 20 Mg Tab, 10 MG PO BID PRN for ABD MUSCLE SPASM, MG 10/12/23 Past Medical History Others Past medical history includes learning disability, hypertension, paroxysmal AFib (on Eliquis as outpatient), asthma, osteoarthritis, anxiety/depression, BPH, hyperlipidemia (on Repatha as outpatient), migraines, history of vitamin-D deficiency and magnesium deficiency, CKD, GERD, short episodes of SVT and mild mitral valve prolapse. Does have history of repeated abdominal pain / distension: for which follows with GI He is allergic to statins and is on Repatha as outpatient. Patient Family History: Cerebrovascular accident (CVA) G8 MOTHER (TREMORS) Diabetes mellitus G8 FATHER, G8 BROTHER, FHx: alcohol abuse G8 BROTHER, Smoker: No Hx (Negative) Drugs: None Review of Systems Constitutional: No symptom reported Eyes: No symptom reported Pulmonary/Respiratory: No symptom reported All Other Systems Fourteen point review of system was performed. Relevant findings as per above and as per HPI. Otherwise negative. H&P Exam Vital Signs Vital Signs Date Time Temp Pulse Resp B/P (MAP) Pulse Ox O2 Delivery O2 Flow Rate FiO2 02/20/25 09:27 139/86 02/20/25 09:00 98.1 80 17 97 98.1 02/20/25 08:00 Room Air* 0 21 General Appeara: Well developed, Well nourished Head Exam: Normal inspection Eye Exam: bilateral eye PERRL Pulmonary/Respiratory: Normal inspection, Lungs clear Cardiovascular/Chest: Normal inspection, Regular rate Peripheral Pulses: 2+ carotid (R), 2+ carotid (L), 2+ femoral (R), 2+ femoral (L), 2+ dorsalis pedis (R), 2+ dorsalis pedis (L), 2+ Radial (R), 2+ Radial (L) Abdominal Exam: Normal bowel sounds, Soft Neuro/Mental St: Alert, Oriented Appearance: Appropriate appearance Eye contact/ Speech: Cooperative Thoughts/Psych: Normal thought pattern Labs/Xrays Labs Test 02/20/25 04:55 02/19/25 14:03 02/19/25 13:04 Range/Units White Blood Count 4.1 L 4.4-10.8 10^3/uL Red Blood Count 4.40 L 4.5-5.90 10^6/uL Hemoglobin 14.5 13.5-17.5 g/dL Hematocrit 41.1 # 41.0-53.0 % Mean Corpuscular Volume 93.6 80.0-100.0 fL Mean Corpuscular Hemoglobin 33.0 H 28.0-32.0 pg Mean Corpuscular Hemoglobin Concent 35.2 32.0-36.0 g/dL Red Cell Distribution Width 14.9 H 11.8-14.3 % Platelet Count 199 140-450 10^3/uL Mean Platelet Volume 7.1 6.9-10.8 fL Neutrophils (%) (Auto) 62.2 37.0-80.0 % Lymphocytes (%) (Auto) 21.5 10.0-50.0 % Monocytes (%) (Auto) 12.6 H 0.0-12.0 % Eosinophils (%) (Auto) 3.3 0.0-7.0 % Basophils (%) (Auto) 0.4 0.0-2.0 % Neutrophils # (Auto) 2.5 1.6-8.6 10 ^3/uL Lymphocytes # (Auto) 0.9 0.4-5.4 10 ^3/uL Monocytes # (Auto) 0.5 0-1.3 10 ^3/uL Eosinophils # (Auto) 0.1 0-0.8 10 ^3/uL Basophils # (Auto) 0 0-0.2 10 ^3/uL Nucleated Red Blood Cells 0.2 % Sodium Level 144 136-145 mmol/L Potassium Level 4.1 3.5-5.1 mmol/L Chloride Level 106 98-107 mmol/L Carbon Dioxide Level 30 20-31 mmol/L Anion Gap 8 5-15 Blood Urea Nitrogen 18 9-23 mg/dL Creatinine 1.28 0.700-1.30 mg/dL Glomerular Filtration Rate Calc 68 >90 mL/min BUN/Creatinine Ratio 14.1 10.0-20.0 Serum Glucose 95 74-106 mg/dL Calcium Level 9.5 8.7-10.4 mg/dL Total Bilirubin 0.7 0.2-1.0 mg/dL Aspartate Amino Transferase (AST) 42 H 13-40 U/L Alanine Aminotransferase (ALT) 81 H 7-40 U/L Alkaline Phosphatase 106 46-116 U/L Total Protein 6.8 5.7-8.2 g/dL Albumin 4.2 3.2-4.8 g/dL Troponin I High Sensitivity 3 L </=54 ng/L B-Type Natriuretic Peptide 13.91 0-100 pg/mL Assessment/Plan Plan Patient is a 49-year-old gentleman who presented to the hospital with atypical chest discomfort. Cardiology involved for cardiac aspects of care patient is known to our practice from before and outside. Denies any recent palpitation, DEGROOT, dizziness, cough or shortness of breath. He is known to our practice from outside and before. Does have history of Paroxysmal Atrial fibrillation, for which he takes Eliquis. Has had repeated admissions for the same presentation to many different hospitals. Not in acute distress. No carotid bruit. No JVD. Mucosa is pink and wet. Lungs: Clear to auscultation. Cardiac: Regular, no thrill/gallop, Abdomen is soft, distended. There is no gross mass/hepatomegaly. Abdomen is distended. There is no rebound tenderness. Extremities reveal 1+ edema bilaterally. Dorsalis pedis is 2+ bilateral. Past medical history includes learning disability, hypertension, paroxysmal AFib (on Eliquis as outpatient), asthma, osteoarthritis, anxiety/depression, BPH, hyperlipidemia (on Repatha as outpatient), migraines, history of vitamin-D deficiency and magnesium deficiency, CKD, GERD, short episodes of SVT and mild mitral valve prolapse. Does have history of repeated abdominal pain / distension: for which follows with GI He is allergic to statins and is on Repatha as outpatient. Nuclear stress test of February 2023 did not reveal ischemia and reported ejection fraction of 77%. Echocardiogram of December 24, 2022 (performed in the office) revealed ejection fraction of 65-70%, mild MR/TR/PI and mild mitral valve prolapse Echocardiogram of October 13, 2023 had revealed ejection fraction of 64%, trace MR/TR/PI Echocardiogram of March 25, 2024 revealed ejection fraction of 65-70 percent, there was no wall motion abnormality. There was trace MR/TR/PI. Echocardiogram of 2024 (performed in [facility]) revealed: EF of 65%, no wall motion abnormalities and trace TR LHC of November 2024: No angiographic evidence for epicardial coronary artery disease (normal coronaries). LVEF of 65% with normal EDP. BNP: 13.91 Troponin (high sensitive): <3 - 3 Chest xry revealed: IMPRESSION: 1. No acute cardiopulmonary disease. EKG revealed: NSR, no specific ST T changes Telemetry has revealed sinus rhythm. Patient is a 49-year-old gentleman who presented with atypical chest pains. Serial high sensitive troponin has been negative. EKG has been nonrevealing. Has recent non-revealing LHC. ACS is not considered. Does have PAF and is on full anticoagulation. Atypical chest pain Paroxysmal AFib, history of Hypertension Depression BPH SVT, history of Cardiac suggestion for management: Management in tele Follow-up electrolytes and kidney function tests and correct abnormalities. Keep potassium above 4 and magnesium above 2 No ischemic work up indicated at this point On Eliquis Optimized medical therapy, Lifestyle and risk factor modifications Multaq: 400 mg PO BID Continue Colchicine: 0.6 mg daily Cardiac kovacs, can be followed as outpatient Further evaluation and management depends on the above and clinical course A total of 75 minutes was spent reviewing the patient record, examining the patient, making a diagnostic and therapeutic plan, discussing this plan with medical personnel, following up on diagnostic studies and following the patient for clinical stability excluding any and all procedures. At least 50% of this time was spent in direct, [id number] contact. Thank you for allowing me to participate in this patient's care. Further recommendations will depend on patient's clinical course. Please do not hesitate to contact me if you have any questions or concerns. This medical document was created using electronic medical record system with [employer] computerized dictation system. Although this document has been carefully reviewed, there may still be some phonetic and typographical errors. These areas are purely typographical due to the imperfection of the software programs, and do not reflect any compromise in the patient's medical care. Plan discussed with: Patient, Other (nurse) APOORVA JON MD Feb 20, 2025 10:55
--- NOTE | 2025-02-20 11:48 | DVHDS2 ---
Discharge Summary Date of Admission Feb 19, 2025 at 16:55 Labs/Diagnostic Data: Laboratory Results Test 02/20/25 04:55 02/19/25 14:03 02/19/25 13:04 White Blood Count 4.1 10^3/uL (4.4-10.8) Red Blood Count 4.40 10^6/uL (4.5-5.90) Hemoglobin 14.5 g/dL (13.5-17.5) Hematocrit 41.1 % (41.0-53.0) Mean Corpuscular Volume 93.6 fL (80.0-100.0) Mean Corpuscular Hemoglobin 33.0 pg (28.0-32.0) Mean Corpuscular Hemoglobin Concent 35.2 g/dL (32.0-36.0) Red Cell Distribution Width 14.9 % (11.8-14.3) Platelet Count 199 10^3/uL (140-450) Mean Platelet Volume 7.1 fL (6.9-10.8) Neutrophils (%) (Auto) 62.2 % (37.0-80.0) Lymphocytes (%) (Auto) 21.5 % (10.0-50.0) Monocytes (%) (Auto) 12.6 % (0.0-12.0) Eosinophils (%) (Auto) 3.3 % (0.0-7.0) Basophils (%) (Auto) 0.4 % (0.0-2.0) Neutrophils # (Auto) 2.5 10 ^3/uL (1.6-8.6) Lymphocytes # (Auto) 0.9 10 ^3/uL (0.4-5.4) Monocytes # (Auto) 0.5 10 ^3/uL (0-1.3) Eosinophils # (Auto) 0.1 10 ^3/uL (0-0.8) Basophils # (Auto) 0 10 ^3/uL (0-0.2) Nucleated Red Blood Cells 0.2 % Sodium Level 144 mmol/L (136-145) Potassium Level 4.1 mmol/L (3.5-5.1) Chloride Level 106 mmol/L (98-107) Carbon Dioxide Level 30 mmol/L (20-31) Anion Gap 8 (5-15) Blood Urea Nitrogen 18 mg/dL (9-23) Creatinine 1.28 mg/dL (0.700-1.30) Glomerular Filtration Rate Calc 68 mL/min (>90) BUN/Creatinine Ratio 14.1 (10.0-20.0) Serum Glucose 95 mg/dL (74-106) Calcium Level 9.5 mg/dL (8.7-10.4) Total Bilirubin 0.7 mg/dL (0.2-1.0) Aspartate Amino Transferase (AST) 42 U/L (13-40) Alanine Aminotransferase (ALT) 81 U/L (7-40) Alkaline Phosphatase 106 U/L (46-116) Total Protein 6.8 g/dL (5.7-8.2) Albumin 4.2 g/dL (3.2-4.8) Troponin I High Sensitivity 3 ng/L (</=54) B-Type Natriuretic Peptide 13.91 pg/mL (0-100) Other Laboratory Tests 02/20/25 04:55 Discharge Instruct/Medications Scheduled Amlodipine Besylate (Amlodipine Besylate), 1 TAB PO DAILY, (Reported) Apixaban Base (Eliquis), 5 MG PO BID, (Reported) Beclomethasone Dipropionate (Qvar Redihaler), 2 PUFF IN BID, (Reported) Cholecalciferol (Vitamin D3), 1 TAB PO DAILY, (Reported) Colchicine (Colchicine), 0.6 MG PO DAILY Docusate Sodium (Colace), 1 CAP PO BID, (Reported) Dronedarone Hydrochloride (Multaq), 400 MG PO BID Escitalopram Oxalate (Lexapro), 5 MG PO DAILY, (Reported) Gabapentin (Gabapentin), 1 CAP PO TID Pantoprazole Sodium Sesquihydr (Pantoprazole Sodium), 1 TAB PO BID Pravastatin Sodium (Pravachol Tablet), 1 TAB PO DAILY, (Reported) Triamcinolone Acetonide (Triamcinolone Acetonide), 1 APPLIC TOP BID Scheduled PRN Albuterol Sulfate (Albuterol Sulfate Hfa), 1 PUFF INH Q4HPRN PRN for SHORTNESS OF BREATH, (Reported) Calcium Carbonate (Tums), 2-3 TAB PO QHSP PRN Dicyclomine Hcl (Dicyclomine Hcl), 10 MG PO BID PRN for ABD MUSCLE SPASM, (Reported) Nitroglycerin (Nitrostat), 0.4 MG SL Q12HP PRN Miscellaneous Medications Dicyclomine Hcl (Dicyclomine Hcl), 20 MG PO, (Reported) Evolocumab (Repatha Sureclick), 140 MG SC, (Reported) Hydroxyzine Hcl (Hydroxyzine Hcl), 10 MG PO, (Reported) Labetalol HCl (Labetalol HCl), 200 MG PO, (Reported) Ondansetron HCl (Ondansetron), 4 MG PO, (Reported) Polyethylene Glycol 3350 (Miralax), 17 GM PO, (Reported) Prilocaine HCl (Prilocaine HCl), 1 POW XX, (Reported) Sucralfate (Carafate), 1 GM OR, (Reported) Trazodone Hcl (Trazodone Hcl), 50 MG PO, (Reported) Discharge Statement: "Patient was advised to return to the ER or call 911 if any headaches, dizziness, shortness of breath, chest pain, abdominal pain, bleeding, fevers, or worsening of medical condition. Patient was counseled about treatment plan, medications, possible side effects, patientverbalized understanding. All questions were answered to the best of my ability. This discharge took greater then 30 minutes in planning, reviewing documentation, counseling the patient, and discussing with other team members." ASSESSMENT ASSESSMENT Assessment MCKENNA ROTH NP Feb 20, 2025 11:48
[2025-02-20] MEDS: MAALOX PLUS or MAALOX 30 ML PO ONE (12:00)
[2025-02-20] MEDS: PANTOPRAZOLE 40 MG/10 ML VIAL INJ IV SCH (12:00)
--- NOTE | 2025-02-20 12:50 | DVHPN2 ---
Progress Note - Dictate Date Seen: Feb 20, 2025 Medical Necessity Reason Pt with a Central, PICC or Fol: No vital signs Vital Sign Date Time Temp Pulse Resp B/P (MAP) Pulse Ox O2 Delivery O2 Flow Rate FiO2 02/20/25 09:27 139/86 02/20/25 09:00 98.1 80 17 97 98.1 02/20/25 08:00 Room Air* 0 21 Total Intake and Output 02/19/25 02/19/25 02/20/25 15:00 23:00 07:00 Intake Total 118 ml Balance 118 ml medications Current Medications Medications Dose Ordered Sig/Yesenia Route Start Time Stop Time Status Last Admin Dose Admin Temazepam 15 mg QHSP PRN PO 02/19/25 17:00 Ondansetron HCl 4 mg Q4HP PRN IV 02/19/25 17:00 Docusate Sodium 100 mg BIDPRN PRN PO 02/19/25 17:00 Nitroglycerin 0.4 mg Q5MINP PRN SL 02/19/25 17:00 02/19/25 23:32 0.4 MG Apixaban 5 mg BID PO 02/19/25 22:00 02/20/25 09:26 5 MG Calcium Carbonate 1,000 mg QHSP PRN PO 02/19/25 17:15 02/20/25 09:26 1,000 MG Gabapentin 300 mg TID PO 02/19/25 22:00 02/20/25 05:34 300 MG Amlodipine Besylate 10 mg DAILY PO 02/20/25 10:00 02/20/25 09:27 10 MG Colchicine 0.6 mg DAILY PO 02/20/25 10:00 02/20/25 09:26 0.6 MG Dronedarone 400 mg BIDWM PO 02/20/25 08:00 02/20/25 09:26 400 MG Citalopram Hydrobromide 10 mg DAILY PO 02/20/25 10:00 02/20/25 09:26 10 MG Pantoprazole Sodium 40 mg DAILY IV 02/20/25 12:00 laboratory and microbiology Laboratory Tests 02/20/25 04:55 Test 02/20/25 04:55 Range/Units Serum Glucose 95 74-106 mg/dL Problem List - Atypical chest pain Cardiology consult, trend troponin, monitor EKG, medication - GERD Medication, monitoring - Chronic abdominal pain Medication, monitoring - CAD Medication, monitoring - Anxiety, depression Medication, monitoring - History of atrial fibrillation Medication, monitoring Assessment/Plan Subjective Patient is awake and alert. Objective Patient was admitted for atypical chest pain. Troponin levels were negative. Patient was seen by cardiology. Cardiology has cleared patient for discharge. Patient is still complaining of abdominal pain. Repeat imaging of abdomen was taken. Plan DC planning for tomorrow. Plan discussed with: Patient, Other MCKENNA ROHT TALCER Feb 20, 2025 12:50
--- NOTE | 2025-02-20 13:27 | DVH ---
Date: 02/20/2025 12:30 PM Examination: XY KUB ABDOMEN SINGLE VIEW History: abd distention Comparison: XY KUB ABDOMEN SINGLE VIEW on DOS: 01/01/25, XY KUB ABDOMEN SINGLE VIEW on DOS: 10/27/24, XY KUB ABDOMEN SINGLE VIEW on DOS: 07/12/24, XY KUB ABDOMEN SINGLE VIEW on DOS: 05/21/24, XY KUB ABDOMEN SINGLE VIEW on DOS: 05/20/24 TECHNIQUE: Frontal views of the abdomen was obtained. FINDINGS: Bowel gas pattern is unremarkable. The lung bases are unremarkable. No acute osseous abnormality identified. IMPRESSION: Nonobstructive bowel gas pattern. Large stool burden.
[2025-02-20] MEDS: CALCIUM CARB 500 MG CHEW TAB PO PRN (21:26)
[2025-02-21 00:41] VITALS: BP 118/79; PULSE 71; RESP 19; TEMP 98.1; O2SAT 94
[2025-02-21 05:00] VITALS: BP 124/80; PULSE 89; RESP 19; TEMP 98.2; O2SAT 95
--- NOTE | 2025-02-21 06:30 | DVHPN2 ---
Progress Note - Dictate Date Seen: Feb 21, 2025 Medical Necessity Reason Pt with a Central, PICC or Fol: No vital signs Vital Sign Date Time Temp Pulse Resp B/P (MAP) Pulse Ox O2 Delivery O2 Flow Rate FiO2 02/21/25 05:00 98.2 89 19 124/80 (95) 95 98.2 02/20/25 20:00 Room Air* 0 21 Total Intake and Output 02/20/25 02/20/25 02/21/25 15:00 23:00 07:00 Intake Total 830 ml 300 ml Balance 830 ml 300 ml medications Current Medications Medications Dose Ordered Sig/Yesenia Route Start Time Stop Time Status Last Admin Dose Admin Temazepam 15 mg QHSP PRN PO 02/19/25 17:00 Ondansetron HCl 4 mg Q4HP PRN IV 02/19/25 17:00 Docusate Sodium 100 mg BIDPRN PRN PO 02/19/25 17:00 Nitroglycerin 0.4 mg Q5MINP PRN SL 02/19/25 17:00 02/19/25 23:32 0.4 MG Apixaban 5 mg BID PO 02/19/25 22:00 02/20/25 21:23 5 MG Gabapentin 300 mg TID PO 02/19/25 22:00 02/21/25 06:19 300 MG Amlodipine Besylate 10 mg DAILY PO 02/20/25 10:00 02/20/25 09:27 10 MG Colchicine 0.6 mg DAILY PO 02/20/25 10:00 02/20/25 09:26 0.6 MG Dronedarone 400 mg BIDWM PO 02/20/25 08:00 02/20/25 17:37 400 MG Citalopram Hydrobromide 10 mg DAILY PO 02/20/25 10:00 02/20/25 09:26 10 MG Pantoprazole Sodium 40 mg DAILY IV 02/20/25 12:00 02/20/25 12:00 40 MG Calcium Carbonate 1,000 mg DAILY PRN PO 02/20/25 15:00 02/20/25 21:26 1,000 MG laboratory and microbiology Laboratory Tests 02/20/25 04:55 Test 02/20/25 04:55 Range/Units Serum Glucose 95 74-106 mg/dL Assessment/Plan Patient is a 49-year-old gentleman who presented to the hospital with atypical chest discomfort. Cardiology involved for cardiac aspects of care patient is known to our practice from before and outside. Denies any recent palpitation, DEGROOT, dizziness, cough or shortness of breath. He is known to our practice from outside and before. Does have history of Paroxysmal Atrial fibrillation, for which he takes Eliquis. Has had repeated admissions for the same presentation to many different hospitals. Not in acute distress. No carotid bruit. No JVD. Mucosa is pink and wet. Lungs: Clear to auscultation. Cardiac: Regular, no thrill/gallop, Abdomen is soft, distended. There is no gross mass/hepatomegaly. Abdomen is distended. T here is no rebound tenderness. Extremities reveal 1+ edema bilaterally. Dorsalis pedis is 2+ bilateral. Past medical history includes learning disability, hypertension, paroxysmal AFib (on Eliquis as outpatient), asthma, osteoarthritis, anxiety/depression, BPH, hyperlipidemia (on Repatha as outpatient), migraines, history of vitamin-D deficiency and magnesium deficiency, CKD, GERD, short episodes of SVT and mild mitral valve prolapse. Does have history of repeated abdominal pain / distension: for which follows with GI He is allergic to statins and is on Repatha as outpatient. Nuclear stress test of February 2023 did not reveal ischemia and reported ejection fraction of 77%. Echocardiogram of December 24, 2022 (performed in the office) revealed ejection fraction of 65-70%, mild MR/TR/PI and mild mitral valve prolapse Echocardiogram of October 13, 2023 had revealed ejection fraction of 64%, trace MR/TR/PI Echocardiogram of March 25, 2024 revealed ejection fraction of 65-70 percent, there was no wall motion abnormality. There was trace MR/TR/PI. Echocardiogram of 2024 (performed in [facility]) revealed: EF of 65%, no wall motion abnormalities and trace TR C of November 2024: No angiographic evidence for epicardial coronary artery disease (normal coronaries). LVEF of 65% with normal EDP. BNP: 13.91 Troponin (high sensitive): <3 - 3 Chest xry revealed: IMPRESSION: 1. No acute cardiopulmonary disease. KUB revealed: IMPRESSION: Nonobstructive bowel gas pattern. Large stool burden. EKG revealed: NSR, no specific ST T changes Telemetry has revealed sinus rhythm. Patient is a 49-year-old gentleman who presented with atypical chest pains. Serial high sensitive troponin has been negative. EKG has been nonrevealing. Has recent non-revealing LHC. ACS is not considered. Does have PAF and is on full anticoagulation. Atypical chest pain Paroxysmal AFib, history of Hypertension Depression BPH SVT, history of Cardiac suggestion for management: Management in tele Follow-up electrolytes and kidney function tests and correct abnormalities. Keep potassium above 4 and magnesium above 2 No ischemic work up indicated at this point On Eliquis Optimized medical therapy, Lifestyle and risk factor modifications Multaq: 400 mg PO BID Continue Colchicine: 0.6 mg daily Cardiac kovacs, can be followed as outpatient Evaluation and management of abdominal pain as per primary team Further evaluation and management depends on the above and clinical course A total of 55 minutes was spent reviewing the patient record, examining the patient, making a diagnostic and therapeutic plan, discussing this plan with medical personnel, following up on diagnostic studies and following the patient for clinical stability excluding any and all procedures. At least 50% of this time was spent in direct, [id number] contact. Thank you for allowing me to participate in this patient's care. Further recommendations will depend on patient's clinical course. Please do not hesitate to contact me if you have any questions or concerns. This medical document was created using electronic medical record system with Directr computerized dictation system. Although this document has been carefully reviewed, there may still be some phonetic and typographical errors. These areas are purely typographical due to the imperfection of the software programs, and do not reflect any compromise in the patient's medical care. Plan discussed with: Patient, Other (nurse) APOORVA JON MD Feb 21, 2025 06:30
--- NOTE | 2025-02-21 07:37 | ECG ---
[facility] Test Date: 2025-02-19 Test Time: 23:34:21 Pat Name: LUIS MIGUEL JOSHI Department: Respiratoy Room: 0235T A Gender: M [employer] Operator: CHAUNCEY : 1975 Requested By: MCKENNA ROTH Order Number: [id number] Reading MD: James Moses Measurements Intervals [place] Rate: 79 P: 43 ND: 170 QRS: -18 QRSD: 87 T: 41 QT: 379 QTc: 435 Interpretive Statements Sinus arrhythmia Ventricular premature complex Borderline left axis deviation Electronically Signed On 02-21-2025 18:53:10 PST by James Moses Please click the below link to view image of tracing.
[2025-02-21 08:00] VITALS: PULSE 80; PULSE 85; RESP 18; O2SAT 94
[2025-02-21 08:47] VITALS: BP 141/90; PULSE 80; RESP 18; TEMP 98.1; O2SAT 94
[2025-02-21] MEDS ORDERED: LACT10SO3 PO (11:07)
[2025-02-21] MEDS ORDERED: COLC1CAP PO (11:07)
--- NOTE | 2025-02-21 11:09 | DVHDS2 ---
Discharge Summary Date of Admission Feb 19, 2025 at 16:55 Date of Discharge: Feb 21, 2025 Labs/Diagnostic Data: Laboratory Results Test 02/20/25 04:55 02/19/25 14:03 02/19/25 13:04 White Blood Count 4.1 10^3/uL (4.4-10.8) Red Blood Count 4.40 10^6/uL (4.5-5.90) Hemoglobin 14.5 g/dL (13.5-17.5) Hematocrit 41.1 % (41.0-53.0) Mean Corpuscular Volume 93.6 fL (80.0-100.0) Mean Corpuscular Hemoglobin 33.0 pg (28.0-32.0) Mean Corpuscular Hemoglobin Concent 35.2 g/dL (32.0-36.0) Red Cell Distribution Width 14.9 % (11.8-14.3) Platelet Count 199 10^3/uL (140-450) Mean Platelet Volume 7.1 fL (6.9-10.8) Neutrophils (%) (Auto) 62.2 % (37.0-80.0) Lymphocytes (%) (Auto) 21.5 % (10.0-50.0) Monocytes (%) (Auto) 12.6 % (0.0-12.0) Eosinophils (%) (Auto) 3.3 % (0.0-7.0) Basophils (%) (Auto) 0.4 % (0.0-2.0) Neutrophils # (Auto) 2.5 10 ^3/uL (1.6-8.6) Lymphocytes # (Auto) 0.9 10 ^3/uL (0.4-5.4) Monocytes # (Auto) 0.5 10 ^3/uL (0-1.3) Eosinophils # (Auto) 0.1 10 ^3/uL (0-0.8) Basophils # (Auto) 0 10 ^3/uL (0-0.2) Nucleated Red Blood Cells 0.2 % Sodium Level 144 mmol/L (136-145) Potassium Level 4.1 mmol/L (3.5-5.1) Chloride Level 106 mmol/L (98-107) Carbon Dioxide Level 30 mmol/L (20-31) Anion Gap 8 (5-15) Blood Urea Nitrogen 18 mg/dL (9-23) Creatinine 1.28 mg/dL (0.700-1.30) Glomerular Filtration Rate Calc 68 mL/min (>90) BUN/Creatinine Ratio 14.1 (10.0-20.0) Serum Glucose 95 mg/dL (74-106) Calcium Level 9.5 mg/dL (8.7-10.4) Total Bilirubin 0.7 mg/dL (0.2-1.0) Aspartate Amino Transferase (AST) 42 U/L (13-40) Alanine Aminotransferase (ALT) 81 U/L (7-40) Alkaline Phosphatase 106 U/L (46-116) Total Protein 6.8 g/dL (5.7-8.2) Albumin 4.2 g/dL (3.2-4.8) Troponin I High Sensitivity 3 ng/L (</=54) B-Type Natriuretic Peptide 13.91 pg/mL (0-100) Other Laboratory Tests 02/20/25 04:55 Brief Hx & Hospital Course: 49 year old male is complaining of left sided chest pain that started today when he woke up. Patient states he did take two Nitros prior to arriving to the emergency department. Patient was admitted on February 19, 2025. Patient had atypical chest pain. Patient was seen by cardiology. Troponin levels were negative. Patient has underlying history of CAD status post stent and anxiety. Patient also has complaint of abdominal pain. X-ray of abdomen shows constipation. Patient was given 1 dose of lactulose and prescription of lactulose to continue outpatient. Patient will need to follow up with his PCP Dr. Bhavesh Swenson in 1 week and follow up outpatient GI for chronic abdominal pain. Patient given Protonix for history of GERD. Protonix was sent to his pharmacy. The patient received proper medical treatment and medications. Vital signs, Imaging and Laboratory Work was monitored daily. All consults recommendations were followed as provided. There were no complaints or new complaints upon discharge, all questions and concerns were answered. Patient was advised to return to the ER or call 911 if any headaches, dizziness, shortness of breath, chest pain, bleeding, fevers, or worsening of medical condition. Patient/Family was counseled about treatment plan, medications, possible side effects, patient verbalized understanding. All questions were answered to the best of my ability. The patient symptoms improved and they are okay to be DC. Condition at Discharge: Stable Final Diagnosis/Problems List Atypical CP r/t GERD f/u GI outpatient Constipation Chronic abdominal pain CAD Anxiety, depression History of atrial fibrillation Discharge Disposition: Home Discharge Instruct/Medications Diet: Cardiac 2g Na,low cholest Activity: No Restrictions, As Tolerated Scheduled Amlodipine Besylate (Amlodipine Besylate), 1 TAB PO DAILY, (Reported) Apixaban Base (Eliquis), 5 MG PO BID, (Reported) Beclomethasone Dipropionate (Qvar Redihaler), 2 PUFF IN BID, (Reported) Cholecalciferol (Vitamin D3), 1 TAB PO DAILY, (Reported) Colchicine (Colchicine), 0.6 MG PO DAILY Docusate Sodium (Colace), 1 CAP PO BID, (Reported) Dronedarone Hydrochloride (Multaq), 400 MG PO BID Escitalopram Oxalate (Lexapro), 5 MG PO DAILY, (Reported) Gabapentin (Gabapentin), 1 CAP PO TID Lactulose (Lactulose), 10 GM PO DAILY Pantoprazole Sodium Sesquihydr (Pantoprazole Sodium), 1 TAB PO BID Pantoprazole Sodium Sesquihydr (Protonix), 40 MG PO BID Pravastatin Sodium (Pravachol Tablet), 1 TAB PO DAILY, (Reported) Triamcinolone Acetonide (Triamcinolone Acetonide), 1 APPLIC TOP BID Scheduled PRN Albuterol Sulfate (Albuterol Sulfate Hfa), 1 PUFF INH Q4HPRN PRN for SHORTNESS OF BREATH, (Reported) Calcium Carbonate (Tums), 2-3 TAB PO QHSP PRN Dicyclomine Hcl (Dicyclomine Hcl), 10 MG PO BID PRN for ABD MUSCLE SPASM, (Reported) Nitroglycerin (Nitrostat), 0.4 MG SL Q12HP PRN Miscellaneous Medications Dicyclomine Hcl (Dicyclomine Hcl), 20 MG PO, (Reported) Evolocumab (Repatha Sureclick), 140 MG SC, (Reported) Hydroxyzine Hcl (Hydroxyzine Hcl), 10 MG PO, (Reported) Labetalol HCl (Labetalol HCl), 200 MG PO, (Reported) Ondansetron HCl (Ondansetron), 4 MG PO, (Reported) Polyethylene Glycol 3350 (Miralax), 17 GM PO, (Reported) Prilocaine HCl (Prilocaine HCl), 1 POW XX, (Reported) Sucralfate (Carafate), 1 GM OR, (Reported) Trazodone Hcl (Trazodone Hcl), 50 MG PO, (Reported) Discharge Statement: "Patient was advised to return to the ER or call 911 if any headaches, dizziness, shortness of breath, chest pain, abdominal pain, bleeding, fevers, or worsening of medical condition. Patient was counseled about treatment plan, medications, possible side effects, patientverbalized understanding. All questions were answered to the best of my ability. This discharge took greater then 30 minutes in planning, reviewing documentation, counseling the patient, and discussing with other team members." ASSESSMENT ASSESSMENT Assessment Atypical CP r/t GERD f/u GI outpatient Continue home meds Constipation, continue Lactulose outpt MCKENNA ROTH NP Feb 21, 2025 11:09
[2025-02-21] MEDS: LACTULOSE 20Gm/30ML SOLN PO ONE (11:15)
[2025-02-21] MEDS ORDERED: PANT40TA2 PO (11:53)
[2025-02-21] MEDS: HYDROCORTONE 1% TOPICAL CREAM 30 GM TUBE TOP SCH (12:00)
[2025-02-21 12:33] VITALS: BP 135/92; PULSE 89; RESP 18; TEMP 98.2; O2SAT 94
== END 2025-02-21 14:00 | disposition home or self-care (01) | DRG 392 ==
LOC: ER 11:31 → OVERFLOW 16:55 → TELE-EAST 16:58
PROVIDERS: ADMIT Nurse Practitioner; ATTEND Nurse Practitioner
DX: K21.9 Gastro-esophageal reflux disease without esophagitis (principal); E11.22 Type 2 diabetes mellitus with diabetic chronic kidney disease; E78.5 Hyperlipidemia, unspecified; I48.0 Paroxysmal atrial fibrillation; G43.909 Migraine, unspecified, not intractable, without status migrainosus; Z79.01 Long term (current) use of anticoagulants; F32.A Depression, unspecified; I12.9 Hypertensive chronic kidney disease with stage 1 through stage 4 chronic kidney disease, or unspecified chronic kidney disease; J45.909 Unspecified asthma, uncomplicated; N18.9 Chronic kidney disease, unspecified; K59.00 Constipation, unspecified; I25.10 Atherosclerotic heart disease of native coronary artery without angina pectoris; F41.9 Anxiety disorder, unspecified; F81.9 Developmental disorder of scholastic skills, unspecified; G89.29 Other chronic pain; N40.0 Benign prostatic hyperplasia without lower urinary tract symptoms; Z79.899 Other long term (current) drug therapy; Z82.3 Family history of stroke; Z86.73 Personal history of transient ischemic attack (TIA), and cerebral infarction without residual deficits; Z88.5 Allergy status to narcotic agent; Z88.6 Allergy status to analgesic agent; Z88.0 Allergy status to penicillin; Z88.8 Allergy status to other drugs, medicaments and biological substances; Z95.5 Presence of coronary angioplasty implant and graft
CPT/HCPCS: 36415; 71045; 74018; 80048; 80053; 83880; 84484; 85025; 87081; 93005; 99291; G0378; J2470

== ENCOUNTER 2025-03-15 17:02 | Emergency (ER) | payer OTHER ==
[~2025-03-15] VITALS: Ht 175.3 cm; Wt 88.2 kg
[~2025-03-15 17:02] MED LIST changes: +CHOL20007 PO; +DOCU-94 PO; +EVOL140I2 SC; +HYDR10SY18 PO; +LABE200T10 PO; +LACT10SO3 PO; +ONDA-155 PO; +PANT40TA2 PO; +POLY335015 PO; +PRAV20TA3 PO; +SUCR1TAB31 OR; +[UNRECOGNIZED DRUG - CODE] XX
--- NOTE | 2025-03-15 17:43 | ED.PDOC ---
GI ASSESSMENT HPI Comments 49y M who presents to the ED for chief complaint of abdominal pain. Pt states he has been having diffuse abdominal pain with associated diarrhea since earlier this AM. Pt states her diarrhea is green in color, watery and states it is loose in consistency. Pt has been having associated dysuria but denies any other symptoms. Pt denies sick contacts or recent changes to diet. Pt otherwise has stable vitals in the ED. Pt denies any other symptoms at this time. Chief Complaint: Abdominal Pain Time Seen by MD: 17:41 Primary Care Provider: AYLEEN Reviewed Notes: Nurses Notes, Medications, Allergies Allergies: Coded Allergies: Acetaminophen (Verified Allergy, Unknown, 03/02/23) Amoxicillin (Verified Allergy, Unknown, 03/02/23) Codeine (Verified Allergy, Unknown, 03/02/23) Hydrocodone (Verified Allergy, Unknown, 03/24/24) Ibuprofen (Verified Allergy, Unknown, 03/02/23) Penicillins (Verified Allergy, Unknown, 03/02/23) Statins (Verified Allergy, Unknown, 03/02/23) Tramadol (Verified Allergy, Unknown, 03/02/23) Uncoded Allergies: WALNUTS (Allergy, Unknown, 03/02/23) Home Meds Active Scripts Diphenoxylate W/ Atropine (Lomotil) 2.5 Mg Tab, 1 TAB PO TID, #30 TAB Prov:GHASSAN MORGAN MD 03/15/25 Pantoprazole Sodium Sesquihydr (Protonix) 40 Mg Tab, 40 MG PO BID for 30 Days, #60 TAB Prov:MCKENNA ROTH NP 02/21/25 Lactulose (Lactulose) 10 Gm/15 Ml Ethel, 10 GM PO DAILY for 30 Days, #450 ML 3 Refills Prov:MCKENNA ROTH NP 02/21/25 Colchicine (Colchicine) 0.6 Mg Cap, 0.6 MG PO DAILY for 30 Days, #30 CAP Prov:MCKENNA ROTH NP 02/21/25 Triamcinolone Acetonide (Triamcinolone Acetonide) 0.1 % Oin, 1 APPLIC TOP BID, #30 GRAMS Prov:CHRISSIE SUH 02/09/25 Dronedarone Hydrochloride (Multaq) 400 Mg Tab, 400 MG PO BID for 30 Days, #60 TAB Prov:MCKENNA ROTH NP 01/01/25 Calcium Carbonate (Tums) 500 Mg Chw, 2-3 TAB PO QHSP PRN, #90 TAB.CHEW prn abdominal pain Prov:YOSHI BONNER MD 09/05/24 Nitroglycerin (Nitrostat) 0.4 Mg Sub, 0.4 MG SL Q12HP PRN, #10 TAB Prov:APOORVA GILLESPIE PAC 08/25/24 Gabapentin (Gabapentin) 300 Mg Cap, 1 CAP PO TID, #90 CAP 5 Refills Prov:MCKENNA ROTH LINE MAINTENANCE TECHNICIAN 05/24/24 Pantoprazole Sodium Sesquihydr (Pantoprazole Sodium) 40 Mg Tab, 1 TAB PO BID for 30 Days, #60 TAB Prov:MCKENNA ROTH LINE MAINTENANCE TECHNICIAN 11/15/23 Reported Medications Dicyclomine Hcl (Dicyclomine Hcl) 20 Mg Tab, 20 MG PO, TAB 02/19/25 Cholecalciferol (VITAMIN D3) 2,000 Unit Tab, 1 TAB PO DAILY, #30 TAB 5 Refills 02/19/25 Evolocumab (Repatha Sureclick) 140 Mg/Ml Inj, 140 MG SC, INJ 02/19/25 Docusate Sodium (Colace) 100 Mg Cap, 1 CAP PO BID, #30 CAP 02/19/25 Polyethylene Glycol 3350 (Miralax) 17 Gm Pow, 17 GM PO, POW 02/19/25 Prilocaine HCl (Prilocaine HCl) 1 Pow Pow, 1 POW XX, POW 02/19/25 Hydroxyzine Hcl (Hydroxyzine Hcl) 10 Mg/5 Ml Syp, 10 MG PO, SYP 02/19/25 Ondansetron HCl (Ondansetron) 4 Mg Tab, 4 MG PO, TAB 02/19/25 Sucralfate (CARAFATE) 1 Gm Tab, 1 GM OR, TAB 02/19/25 Labetalol HCl (Labetalol HCl) 200 Mg Tab, 200 MG PO, TAB 02/19/25 Pravastatin Sodium (PRAVACHOL TABLET) 20 Mg Tb, 1 TAB PO DAILY, #30 TAB 5 Refills 02/19/25 Trazodone Hcl (Trazodone Hcl) 100 Mg Tab, 50 MG PO, TAB 11/29/24 Escitalopram Oxalate (Lexapro) 5 Mg Tab, 5 MG PO DAILY for depresion, TAB 11/29/24 Amlodipine Besylate (Amlodipine Besylate) 10 Mg Tab, 1 TAB PO DAILY 11/13/24 Beclomethasone Dipropionate (Qvar Redihaler) 80 Mcg/Act Aer, 2 PUFF IN BID, AER 03/25/24 Albuterol Sulfate (Albuterol Sulfate Hfa) 108 Mcg/Act Aer, 1 PUFF INH Q4HPRN PRN for SHORTNESS OF BREATH 03/25/24 Apixaban Base (ELIQUIS) 5 Mg Tab, 5 MG PO BID, TAB 10/12/23 Dicyclomine Hcl (Dicyclomine Hcl) 20 Mg Tab, 10 MG PO BID PRN for ABD MUSCLE SPASM, MG 10/12/23 Information Source: Patient Mode of Arrival: Ambulatory Brought in by: self Timing: Hours Duration: Since onset Prehospital treatment: None Quality: Aching Vomitus: None Stool: Loose, Watery Severity: Moderate Recent: None Recent Hx of: None Pain Location: Diffuse Modifying Factors: Nothing Associated sign and symptoms: Diarrhea, Abdominal Pain Past Medical History PAST MEDICAL HISTORY: AFIB, Anxiety, Arthritis, Asthma, CAD, GERD, High Lipids, HTN Surgical History: Denies all surgeries Family History Family History: Reviewed,noncontributory to illness, Family hx of heart tim, Family hx of stroke Social History Smoker: Non-Smoker Alcohol: Denies ETOH Use Drugs: Denies Drug Use Lives In: Home Constitutional: denies: chills, diaphoresis, fatigue, fever, malaise, sweats, weakness, others EENTM: denies: blurred vision, double vision, ear bleeding, ear discharge, ear drainage, ear pain, ear ringing, eye pain, eye redness, hearing loss, mouth pain, mouth swelling, nasal discharge, nose bleeding, nose congestion, nose pain, photophobia, tearing, throat pain, throat swelling, voice changes, others Respiratory: denies: cough, hemoptysis, orthopnea, SOB at rest, shortness of breath, SOB with excertion, stridor, wheezing, others Cardiovascular: denies: chest pain, dizzy spells, diaphoresis, Dyspnea on exertion, edema, irregular heart beat, left arm pain, lightheadedness, palpitations, PND, syncope, others Gastrointestinal: reports: abdominal pain, diarrhea; denies: abdomen distended, blood streaked bowels, constipated, dysphagia, difficulty swallowing, hematemesis, melena, nausea, poor appetite, poor fluid intake, rectal bleeding, rectal pain, vomiting, others Genitourinary: reports: dysuria; denies: burning, flank pain, frequency, hematuria, incontinence, penile discharge, penile sore, pain, testicle pain, testicle swelling, urgency, others Neurological: denies: dizziness, fainting, headache, left sided numbness, left sided weakness, numbness, paresthesia, pre-existing deficit, right sided numbness, right sided weakness, seizure, speech problems, tingling, tremors, weakness, others Musculoskeletal: denies: back pain, gout, joint pain, joint swelling, muscle pain, muscle stiffness, neck pain, others Integumetry: denies: bruises, change in color, change in hair/nails, dryness, laceration, lesions, lumps, rash, wounds, others Allergic/Immunocompromised: denies: Difficulty Healing, Frequent Infections, Hives, Itching, others Hematologic/Lymphatic: denies: anemia, blood clots, easy bleeding, easy bruising, swollen glands, others Endocrine: denies: excessive hunger, excessive sweating, excessive thirst, excessive urination, flushing, intolerance to cold, intolerance to heat, unexplained weight gain, unexplained weight loss, others Psychiatric: denies: anxiety, bipolar disorder, depression, hopeless, panic disorder, schizophrenia, sleepless, suicidal, others All Other Systems: Reviewed and Negative Physical Exam General Appearance: No Apparent Distress HEENT: Normal ENT Inspection, Pharynx Normal, TMs Normal Neck: Full Range of Motion, Non-Tender, Normal, Normal Inspection Respiratory: Chest Non-Tender, Lungs Clear, No Accessory Muscle Use, No Respiratory Distress, Normal Breath Sounds Cardiovascular: No Edema, No JVD, No Murmur, No Gallop, Normal Peripheral Pulses, Regular Rate/Rhythm Breast Exam: Deferred Gastrointestinal: No Organomegaly, Non Tender, No Pulsatile Mass, Normal Bowel Sounds, Soft Genitalia: Deferred Pelvic: Deferred Rectal: Deferred Extremities: No calf tenderness, Normal capillary refill, Normal inspection, Normal range of motion, Non-tender, No pedal edema Musculoskeletal : Apperance: Normal Neurologic: Alert, skiing instructor II-XII nml as Tested, No Motor Deficits, Normal Affect, Normal Mood, No Sensory Deficits Cerebellar Function: Normal Reflexes: Normal Skin: Dry, Normal Color, Warm Lymphatic: No Adenopathy Was a procedure done? Was a procedure done?: No GI differential Dx Differential Diagnosis: Diverticular disease, Gastritis/PUD, Gastroenteritis, GI hemorrhage, Inflammatory BD, Pancreatitis, UTI, Dehydration, Electrolyte Imbalance, Food Poisoning, Bacterial, Viral, Stress Ulcer, Kidney Stone Other Differential Diagnosis diarrhea X-Ray, Labs, Meds, VS Vital Signs Date Time Temp Pulse Resp B/P (MAP) Pulse Ox O2 Delivery O2 Flow Rate FiO2 03/15/25 17:04 98.4 74 16 152/90 95 98.4 Lab Test 03/15/25 18:13 Range/Units White Blood Count 5.1 4.4-10.8 10^3/uL Red Blood Count 4.65 4.5-5.90 10^6/uL Hemoglobin 15.5 13.5-17.5 g/dL Hematocrit 44.6 41.0-53.0 % Mean Corpuscular Volume 96.0 80.0-100.0 fL Mean Corpuscular Hemoglobin 33.4 H 28.0-32.0 pg Mean Corpuscular Hemoglobin Concent 34.8 32.0-36.0 g/dL Red Cell Distribution Width 16.0 H 11.8-14.3 % Platelet Count 241 140-450 10^3/uL Mean Platelet Volume 7.3 6.9-10.8 fL Neutrophils (%) (Auto) 37.0-80.0 % Lymphocytes (%) (Auto) 10.0-50.0 % Monocytes (%) (Auto) 0.0-12.0 % Eosinophils (%) (Auto) 0.0-7.0 % Basophils (%) (Auto) 0.0-2.0 % Neutrophils # (Auto) 1.6-8.6 10 ^3/uL Lymphocytes # (Auto) 0.4-5.4 10 ^3/uL Monocytes # (Auto) 0-1.3 10 ^3/uL Differential Total Cells Counted Pending Neutrophils % (Manual) Pending Band Neutrophils % (Manual) Pending Lymphocytes % (Manual) Pending Monocytes % (Manual) Pending Eosinophils % (Manual) Pending Basophils % (Manual) Pending Metamyelocytes % (manual) Pending Myelocytes % (Manual) Pending Promyelocytes % (Manual) Pending Blast Cells % (Manual) Pending Reactive Lymphocytes Pending Platelet Estimate Pending Sodium Level 143 136-145 mmol/L Potassium Level 3.8 3.5-5.1 mmol/L Chloride Level 103 98-107 mmol/L Carbon Dioxide Level 30 20-31 mmol/L Anion Gap 10 5-15 Blood Urea Nitrogen 9 9-23 mg/dL Creatinine 1.48 H 0.700-1.30 mg/dL Glomerular Filtration Rate Calc 57 >90 mL/min BUN/Creatinine Ratio 6.1 L 10.0-20.0 Serum Glucose 133 H 74-106 mg/dL Calcium Level 9.9 8.7-10.4 mg/dL The patient's CBC is within normal limits. At this time, the chemistry panel is within limits The patient is being discharged and will follow up primary care doctor The patient will return to the emergency department's condition worsens The patient will be given a prescription of Lomotil Time of 1ST Reevaluation: 18:15 Reevaluation 1ST: Unchanged Patient Education/Counseling: Diagnosis, Treatment, Prognosis, Need For Follow Up Family Education/Counseling: No Family Present SEPSIS Sepsis Screen Date sepsis recognized/suspect: Mar 15, 2025 Time Sepsis recognized/suspect: 1706 Recent Procedure: No On Antibiotic Therapy: No Respiratory Rate >20: No Heart Rate >90: No Temp<36 C (96.8 F) or >38.3 C: No SBP <90 or MAP <65 mmHG: No New Acute Mental Status Change: No Is the patient on CPAP, BIPAP,: No Physician Orders Complete Blood Count (03/15/25 17:49) Urinalysis (03/15/25 17:49) Manual Differential (03/15/25 18:13) Vital Signs Date Time Temp Pulse Resp B/P (MAP) Pulse Ox O2 Delivery O2 Flow Rate FiO2 03/15/25 17:04 98.4 74 16 152/90 95 98.4 Laboratory Tests Test 03/15/25 18:13 White Blood Count 5.1 10^3/uL (4.4-10.8) Departure 1 Departure Time of Disposition: 19:04 Impression: Primary Impression: Diarrhea Qualified Codes: R19.7 - Diarrhea, unspecified Disposition: 01 HOME / SELF CARE / HOMELESS Condition: Fair e-Prescriptions Diphenoxylate W/ Atropine (Lomotil) 2.5 Mg Tab 1 TAB PO TID, #30 TAB Prov: GHASSAN MORGAN MD 03/15/25 Discharged With: Self Critical Care Note Critical Care Time?: No Stability Stability form required: No Heart Score Heart Score: Heart Score Response (Comments) Value History N/A 0 EKG N/A 0 Age N/A 0 Risk Factors N/A 0 Troponin N/A 0 Total 0 I personally scribed for GHASSAN MORGAN MD ([email or web address]) on 03/15/25 at 17:43. Electronically submitted by José Mims ([email or web address]). GHASSAN MORGAN MD Mar 15, 2025 17:43
[2025-03-15 18:32] LABS: Hematocrit 44.6 % (41.0-53.0); Hemoglobin 15.5 g/dL (13.5-17.5); Mean Corpuscular Hemoglobin 33.4 pg (28.0-32.0); Mean Corpuscular Volume 96.0 fL (80.0-100.0)
[2025-03-15 18:33] LABS: Chloride 103 mmol/L (98-107); Potassium 3.8 mmol/L (3.5-5.1); Sodium 143 mmol/L (136-145)
[2025-03-15 18:34] LABS: Anion Gap 10 (5-15); Calcium 9.9 mg/dL (8.7-10.4); Carbon Dioxide 30 mmol/L (20-31)
[2025-03-15 18:39] LABS: BUN/Creatinine Ratio 6.1 (10.0-20.0)
[2025-03-15 18:48] LABS: Blood Urea Nitrogen 9 mg/dL (9-23); Glucose 133 mg/dL (74-106)
[2025-03-15] MEDS: DIPHENOXYLATE W/ATROPINE 2.5 MG TAB PO ONE (18:59)
[2025-03-15] MEDS ORDERED: DIPH2.5T73 PO (19:02)
[2025-03-15 19:27] LABS: Total Cells Counted 100.0 (100)
[2025-03-15 19:28] LABS: RBC Morphology Normal
[2025-03-15 19:29] LABS: Anisocytosis Slight
[2025-03-15 20:14] VITALS: BP 124/88; PULSE 74; RESP 18; TEMP 98.1; O2SAT 97
== END 2025-03-15 20:33 | disposition home or self-care (01) ==
LOC: ER 17:02
DX: R19.7 Diarrhea, unspecified (principal); R10.84 Generalized abdominal pain; I10 Essential (primary) hypertension; F41.9 Anxiety disorder, unspecified; E78.5 Hyperlipidemia, unspecified; I48.91 Unspecified atrial fibrillation; J45.909 Unspecified asthma, uncomplicated; M19.90 Unspecified osteoarthritis, unspecified site; K21.9 Gastro-esophageal reflux disease without esophagitis; Z79.899 Other long term (current) drug therapy; Z88.0 Allergy status to penicillin; Z88.5 Allergy status to narcotic agent; Z88.6 Allergy status to analgesic agent; Z88.8 Allergy status to other drugs, medicaments and biological substances
CPT/HCPCS: 36415; 80048; 85007; 85027

== ENCOUNTER 2025-04-03 15:34 | Emergency (ER) | payer OTHER ==
[~2025-04-03] VITALS: Ht 175.3 cm; Wt 87.8 kg
[~2025-04-03 15:34] MED LIST changes: +DIPH2.5T73 PO
--- NOTE | 2025-04-03 16:05 | ED.PDOC ---
GI ASSESSMENT HPI Comments 49 year old male with PMHx a-fib, anxiety, arthritis, asthma, CAD, GERD, HLD, HTN presents to the ED with a chief complaint of abdominal pain onset 2 days. Patient has been experiencing epigastric pain for the past 2 days, worsened today. Patient has been taking GERD medication, with no improvement. He is also experiencing cough. Denies fever, chills, headache, dizziness, shortness of breath, nausea, vomiting, diarrhea. No other symptoms or modifying factors present at this time. Chief Complaint: Abdominal Pain Time Seen by MD: 16:00 Primary Care Provider: AYLEEN Reviewed Notes: Medications, Allergies Allergies: Coded Allergies: Acetaminophen (Verified Allergy, Unknown, 03/02/23) Amoxicillin (Verified Allergy, Unknown, 03/02/23) Codeine (Verified Allergy, Unknown, 03/02/23) Hydrocodone (Verified Allergy, Unknown, 03/24/24) Ibuprofen (Verified Allergy, Unknown, 03/02/23) Penicillins (Verified Allergy, Unknown, 03/02/23) Statins (Verified Allergy, Unknown, 03/02/23) Tramadol (Verified Allergy, Unknown, 03/02/23) Uncoded Allergies: WALNUTS (Allergy, Unknown, 03/02/23) Home Meds Active Scripts Diphenoxylate W/ Atropine (Lomotil) 2.5 Mg Tab, 1 TAB PO TID, #30 TAB Prov:GHASSAN MORGAN MD 03/15/25 Pantoprazole Sodium Sesquihydr (Protonix) 40 Mg Tab, 40 MG PO BID for 30 Days, #60 TAB Prov:MCKENNA ROTH NP 02/21/25 Lactulose (Lactulose) 10 Gm/15 Ml Ethel, 10 GM PO DAILY for 30 Days, #450 ML 3 Refills Prov:MCKENNA ROTH NP 02/21/25 Colchicine (Colchicine) 0.6 Mg Cap, 0.6 MG PO DAILY for 30 Days, #30 CAP Prov:MCKENNA ROTH NP 02/21/25 Triamcinolone Acetonide (Triamcinolone Acetonide) 0.1 % Oin, 1 APPLIC TOP BID, #30 GRAMS Prov:CHRISSIE SUH 02/09/25 Dronedarone Hydrochloride (Multaq) 400 Mg Tab, 400 MG PO BID for 30 Days, #60 TAB Prov:TONYA ROTHDEEPAK Madsen TV PRODUCTION ASSISTANT 01/01/25 Calcium Carbonate (Tums) 500 Mg Chw, 2-3 TAB PO QHSP PRN, #90 TAB.CHEW prn abdominal pain Prov:YOSHI BONNER MD 09/05/24 Nitroglycerin (Nitrostat) 0.4 Mg Sub, 0.4 MG SL Q12HP PRN, #10 TAB Prov:APOORVA GILLESPIE PAC 08/25/24 Gabapentin (Gabapentin) 300 Mg Cap, 1 CAP PO TID, #90 CAP 5 Refills Prov:MCKENNA ROTH TV PRODUCTION ASSISTANT 05/24/24 Pantoprazole Sodium Sesquihydr (Pantoprazole Sodium) 40 Mg Tab, 1 TAB PO BID for 30 Days, #60 TAB Prov:MCKENNA ROTH TV PRODUCTION ASSISTANT 11/15/23 Reported Medications Dicyclomine Hcl (Dicyclomine Hcl) 20 Mg Tab, 20 MG PO, TAB 02/19/25 Cholecalciferol (VITAMIN D3) 2,000 Unit Tab, 1 TAB PO DAILY, #30 TAB 5 Refills 02/19/25 Evolocumab (Repatha Sureclick) 140 Mg/Ml Inj, 140 MG SC, INJ 02/19/25 Docusate Sodium (Colace) 100 Mg Cap, 1 CAP PO BID, #30 CAP 02/19/25 Polyethylene Glycol 3350 (Miralax) 17 Gm Pow, 17 GM PO, POW 02/19/25 Prilocaine HCl (Prilocaine HCl) 1 Pow Pow, 1 POW XX, POW 02/19/25 Hydroxyzine Hcl (Hydroxyzine Hcl) 10 Mg/5 Ml Syp, 10 MG PO, SYP 02/19/25 Ondansetron HCl (Ondansetron) 4 Mg Tab, 4 MG PO, TAB 02/19/25 Sucralfate (CARAFATE) 1 Gm Tab, 1 GM OR, TAB 02/19/25 Labetalol HCl (Labetalol HCl) 200 Mg Tab, 200 MG PO, TAB 02/19/25 Pravastatin Sodium (PRAVACHOL TABLET) 20 Mg Tb, 1 TAB PO DAILY, #30 TAB 5 Refills 02/19/25 Trazodone Hcl (Trazodone Hcl) 100 Mg Tab, 50 MG PO, TAB 11/29/24 Escitalopram Oxalate (Lexapro) 5 Mg Tab, 5 MG PO DAILY for depresion, TAB 11/29/24 Amlodipine Besylate (Amlodipine Besylate) 10 Mg Tab, 1 TAB PO DAILY 11/13/24 Beclomethasone Dipropionate (Qvar Redihaler) 80 Mcg/Act Aer, 2 PUFF IN BID, AER 03/25/24 Albuterol Sulfate (Albuterol Sulfate Hfa) 108 Mcg/Act Aer, 1 PUFF INH Q4HPRN PRN for SHORTNESS OF BREATH 03/25/24 Apixaban Base (ELIQUIS) 5 Mg Tab, 5 MG PO BID, TAB 10/12/23 Dicyclomine Hcl (Dicyclomine Hcl) 20 Mg Tab, 10 MG PO BID PRN for ABD MUSCLE SPASM, MG 10/12/23 Information Source: Patient Mode of Arrival: Ambulatory Timing: Days Duration: Since onset Prehospital treatment: None Quality: Sharp Vomitus: None Severity: Moderate Recent: None Recent Hx of: None Pain Location: Epigastric Modifying Factors: Nothing Associated sign and symptoms: Abdominal Pain Past Medical History PAST MEDICAL HISTORY: AFIB, Anxiety, Arthritis, Asthma, CAD, GERD, High Lipids, HTN Surgical History: Denies all surgeries Family History Family History: Reviewed,noncontributory to illness, Family hx of heart tim, Family hx of stroke Social History Smoker: Non-Smoker Alcohol: Denies ETOH Use Drugs: Denies Drug Use Lives In: Home Constitutional: denies: chills, diaphoresis, fatigue, fever, malaise, sweats, weakness, others EENTM: denies: blurred vision, double vision, ear bleeding, ear discharge, ear drainage, ear pain, ear ringing, eye pain, eye redness, hearing loss, mouth pain, mouth swelling, nasal discharge, nose bleeding, nose congestion, nose pain, photophobia, tearing, throat pain, throat swelling, voice changes, others Respiratory: reports: cough; denies: hemoptysis, orthopnea, SOB at rest, shortness of breath, SOB with excertion, stridor, wheezing, others Cardiovascular: denies: chest pain, dizzy spells, diaphoresis, Dyspnea on exertion, edema, irregular heart beat, left arm pain, lightheadedness, palpitations, PND, syncope, others Gastrointestinal: reports: abdominal pain; denies: abdomen distended, blood streaked bowels, constipated, diarrhea, dysphagia, difficulty swallowing, hematemesis, melena, nausea, poor appetite, poor fluid intake, rectal bleeding, rectal pain, vomiting, others Genitourinary: denies: burning, dysuria, flank pain, frequency, hematuria, incontinence, penile discharge, penile sore, pain, testicle pain, testicle swelling, urgency, others Neurological: denies: dizziness, fainting, headache, left sided numbness, left sided weakness, numbness, paresthesia, pre-existing deficit, right sided numbness, right sided weakness, seizure, speech problems, tingling, tremors, weakness, others Musculoskeletal: denies: back pain, gout, joint pain, joint swelling, muscle pain, muscle stiffness, neck pain, others Integumetry: denies: bruises, change in color, change in hair/nails, dryness, laceration, lesions, lumps, rash, wounds, others Allergic/Immunocompromised: denies: Difficulty Healing, Frequent Infections, Hives, Itching, others Hematologic/Lymphatic: denies: anemia, blood clots, easy bleeding, easy bruising, swollen glands, others Endocrine: denies: excessive hunger, excessive sweating, excessive thirst, excessive urination, flushing, intolerance to cold, intolerance to heat, unexplained weight gain, unexplained weight loss, others Psychiatric: denies: anxiety, bipolar disorder, depression, hopeless, panic disorder, schizophrenia, sleepless, suicidal, others All Other Systems: Reviewed and Negative Physical Exam General Appearance: Moderate Distress, Normal HEENT: Normal ENT Inspection, Pharynx Normal, TMs Normal Neck: Full Range of Motion, Non-Tender, Normal, Normal Inspection Respiratory: Chest Non-Tender, Lungs Clear, No Accessory Muscle Use, No Respiratory Distress, Normal Breath Sounds Cardiovascular: No Edema, No JVD, No Murmur, No Gallop, Normal Peripheral Pulses, Regular Rate/Rhythm Breast Exam: Deferred Gastrointestinal: No Organomegaly, Non Tender, No Pulsatile Mass, Normal Bowel Sounds, Soft Genitalia: Deferred Pelvic: Deferred Rectal: Deferred Extremities: No calf tenderness, Normal capillary refill, Normal inspection, Normal range of motion, Non-tender, No pedal edema Musculoskeletal : Apperance: Normal Neurologic: Alert, psychosocial rehabilitation counselor II-XII nml as Tested, No Motor Deficits, Normal Affect, Normal Mood, No Sensory Deficits Cerebellar Function: Normal Reflexes: Normal Skin: Dry, Normal Color, Warm Peripheral Pulses: 3+ Radial (R), 3+ Radial (L) Lymphatic: No Adenopathy Was a procedure done? Was a procedure done?: No GI differential Dx Differential Diagnosis: Constipation, Diverticular disease, Esophagitis, Gastritis/PUD, Gastroenteritis X-Ray, Labs, Meds, VS Vital Signs Date Time Temp Pulse Resp B/P (MAP) Pulse Ox O2 Delivery O2 Flow Rate FiO2 04/03/25 15:42 97.6 86 18 129/87 97 97.6 Lab Test 04/03/25 16:47 Range/Units White Blood Count Pending Red Blood Count Pending Hemoglobin Pending Hematocrit Pending Mean Corpuscular Volume Pending Mean Corpuscular Hemoglobin Pending Mean Corpuscular Hemoglobin Concent Pending Red Cell Distribution Width Pending Platelet Count Pending Mean Platelet Volume Pending Neutrophils (%) (Auto) Pending Lymphocytes (%) (Auto) Pending Monocytes (%) (Auto) Pending Basophils (%) (Auto) Pending Neutrophils # (Auto) Pending Lymphocytes # (Auto) Pending Monocytes # (Auto) Pending Sodium Level Pending Potassium Level Pending Chloride Level Pending Carbon Dioxide Level Pending Anion Gap Pending Blood Urea Nitrogen Pending Creatinine Pending Glomerular Filtration Rate Calc Pending BUN/Creatinine Ratio Pending Serum Glucose Pending Calcium Level Pending Patient alert. Came in because of nausea. Vitals stable. Answering questions. No sign of distress. Abdomen is soft nontender. Ambulating. No acute process. Chest x-ray reviewed does not show any acute changes. Was given prescription of Protonix. Was told to follow up with his primary care physician. Was told to come back if there is any problem. Time of 1ST Reevaluation: 16:30 Reevaluation 1ST: Improved Patient Education/Counseling: Diagnosis, Treatment, Prognosis Family Education/Counseling: No Family Present SEPSIS Sepsis Screen Date sepsis recognized/suspect: Apr 03, 2025 Time Sepsis recognized/suspect: 1541 Recent Procedure: No On Antibiotic Therapy: No Respiratory Rate >20: No Heart Rate >90: No Temp<36 C (96.8 F) or >38.3 C: No SBP <90 or MAP <65 mmHG: No New Acute Mental Status Change: No Is the patient on CPAP, BIPAP,: No Physician Orders Complete Blood Count (04/03/25 16:09) Chest Portable (04/03/25 16:09) Basic Metabolic Panel (04/03/25 16:09) Vital Signs Date Time Temp Pulse Resp B/P (MAP) Pulse Ox O2 Delivery O2 Flow Rate FiO2 04/03/25 15:42 97.6 86 18 129/87 97 97.6 Laboratory Tests Test 04/03/25 16:47 White Blood Count Pending Departure 1 Departure Time of Disposition: 16:11 Impression: Primary Impression: Gastritis Qualified Codes: K29.00 - Acute gastritis without bleeding Disposition: 01 HOME / SELF CARE / HOMELESS Condition: Good e-Prescriptions Pantoprazole Sodium Sesquihydr (Protonix) 40 Mg Tab 40 MG PO DAILY for 5 Days, #5 TAB Prov: DARRELL BALBUENA MD 04/03/25 Discharged With: Self Critical Care Note Critical Care Time?: No Stability Stability form required: No Heart Score Heart Score: Heart Score Response (Comments) Value History N/A 0 EKG N/A 0 Age N/A 0 Risk Factors N/A 0 Troponin N/A 0 Total 0 I personally scribed for DARRELL BALBUENA MD ([email or web address]) on 04/03/25 at 16:05. Electronically submitted by Luann Rogers ([email or web address]). DARRELL BALBUENA MD Apr 03, 2025 16:05
--- NOTE | 2025-04-03 17:00 | DVH ---
CHEST RADIOGRAPH INDICATION: sob TECHNIQUE: Single frontal view of the chest was obtained. COMPARISON: XY CHEST PORTABLE on DOS: 02/19/25, XY CHEST XRAY 1 VIEW on DOS: 01/23/25 FINDINGS: No focal consolidation. No significant pleural effusion. No pneumothorax. Stable cardiomediastinal silhouette. IMPRESSION: No acute pulmonary process.
[2025-04-03] MEDS ORDERED: PANT40TA2 PO (17:18)
[2025-04-03 17:23] LABS: Hematocrit 46.4 % (41.0-53.0); Hemoglobin 16.0 g/dL (13.5-17.5); Mean Corpuscular Hemoglobin 33.8 pg (28.0-32.0); Mean Corpuscular Volume 97.6 fL (80.0-100.0); Nucleated Red Blood Cells % 0.3 %
[2025-04-03 17:30] LABS: Anion Gap 9 (5-15); Carbon Dioxide 26 mmol/L (20-31); Potassium 3.7 mmol/L (3.5-5.1); Sodium 144 mmol/L (136-145)
[2025-04-03 17:31] LABS: Calcium 9.8 mg/dL (8.7-10.4)
[2025-04-03 17:36] LABS: BUN/Creatinine Ratio 8.1 (10.0-20.0); Blood Urea Nitrogen 10 mg/dL (9-23)
[2025-04-03 17:40] LABS: Chloride 109 mmol/L (98-107); Glucose 114 mg/dL (74-106)
[2025-04-03 18:49] VITALS: BP 142/82; PULSE 72; RESP 18; TEMP 99; O2SAT 96
== END 2025-04-03 18:52 | disposition home or self-care (01) ==
LOC: ER 15:34
DX: K29.70 Gastritis, unspecified, without bleeding (principal); E78.5 Hyperlipidemia, unspecified; F41.9 Anxiety disorder, unspecified; I10 Essential (primary) hypertension; I25.10 Atherosclerotic heart disease of native coronary artery without angina pectoris; I48.91 Unspecified atrial fibrillation; J45.909 Unspecified asthma, uncomplicated; K21.9 Gastro-esophageal reflux disease without esophagitis; Z88.0 Allergy status to penicillin; Z88.5 Allergy status to narcotic agent; Z88.6 Allergy status to analgesic agent; Z88.8 Allergy status to other drugs, medicaments and biological substances; Z79.51 Long term (current) use of inhaled steroids; Z79.899 Other long term (current) drug therapy
CPT/HCPCS: 36415; 71045; 80048; 85025